=== PATIENT | female | born 1965 | race Caucasian/White ===

== ENCOUNTER → 2017-10-13 10:28 | Outpatient (CLI) | payer OTHER, SELFPAY | PROVIDERS: Family Provider Family Medicine; PCP Family Medicine; Visit Provider Physician Assistant Surgical | DX: J02.9 Acute pharyngitis, unspecified (principal) ==

== ENCOUNTER → 2017-12-09 16:07 | Outpatient (CLI) | payer OTHER, SELFPAY ==
--- NOTE | 2017-12-09 16:10 | CT_ITS ---
STUDY: CT ABDOMEN AND PELVIS WITH AND WITHOUT CONTRAST REASON FOR EXAM: Female, 52 years old. Microscopic hematuria RADIATION DOSAGE (If Supplied By Facility): CTDIvol = ( 20.56 ) mGy, DLP = ( 1966.39 ) mGycm TECHNIQUE: Transaxial images were obtained from the dome of the diaphragm to the symphysis pubis without oral contrast. 100 ml of Isovue 300 contrast was administered. Sagittal and coronal images were reconstructed. Individualized dose optimization techniques were used for this CT. COMPARISON: None. FINDINGS: The visualized lung bases are unremarkable. The visualized portions of the heart are within normal limits. There is decreased attenuation of the liver consistent with steatosis. A 1.6 cm gallstone is present. Normal spleen. Normal pancreas. Normal bilateral adrenal glands. Normal right kidney. 2 mm nonobstructing left renal stone. 18 mm simple cyst in the left kidney laterally. 11 mm simple cyst in the left kidney medially. Normal visualized stomach. Normal small intestine. Normal colon. The appendix is visualized and appears normal. Normal abdominal aorta. Normal inferior vena cava. Normal retroperitoneum. Normal urinary bladder. Umbilical fat hernia. Normal osseous structures. CT/CT Abd/Pelvis W/WO Contrast IMPRESSION: 2 mm nonobstructing left renal stone. Multiple small left renal cysts. Solid renal mass. No evidence of acute obstructive uropathy. Cholelithiasis. Electronically Signed: Bradford Deutsch MD at 6:11 EDT Tel , Service support ,
== END ==
PROVIDERS: Family Provider Family Medicine; PCP Family Medicine; Visit Provider Nurse Practitioner Adult Health
DX: R31.29 Other microscopic hematuria (principal)
CPT/HCPCS: 74178; Q9967

== ENCOUNTER → 2017-12-28 14:06 | Outpatient (CLI) | payer OTHER, SELFPAY | PROVIDERS: Referring Provider Physician Assistant; Visit Provider Physician Assistant | DX: J02.9 Acute pharyngitis, unspecified (principal) | CPT/HCPCS: 87081 ==

== ENCOUNTER 2018-01-13 10:02 | Day surgery (SDC) | payer OTHER, SELFPAY ==
[2018-01-13 10:31] VITALS: BP 134/83; PULSE 78; RESP 16; TEMP 36.6; O2SAT 97; BMI 37.2
[2018-01-13] MEDS: Cefazolin 2 GM in 0.9% Normal Saline 100 ML IV (11:22)
--- NOTE | 2018-01-13 11:42 | PCM.OPRPT ---
Report of Operation Date of Procedure: 01/13/18 Pre-Operative Diagnosis: Microscopic hematuria Post-Operative Diagnosis: Same Surgery/Procedure Performed:: Cystoscopy Description of Surgical Findings:: 52-year-old female taken back to the operating room she requested anesthesia because she has a very sensitive urethra a lot of pain with catheterizations in the past. She underwent a MAC local anesthesia she was placed in dorsolithotomy position she has had a hysterectomy, she has a mild rectocele mild cystocele, urethra is normal no scar tissues along the urethra the vaginal area and urethra prepped and draped in usual sterile fashion went into the bladder with a 19 Trin[place] rigid cystourethroscope did a cystoscopy with 30 and 70 degree lens she had a normal urethra normal trigone bladder was completely normal no tumor stones or diverticuli or abnormalities. Patient's anesthesia reversed and the patient was bladder was drained and she taken back to PACU good condition I called the and let her know that the cystoscopy was normal and left a message. Type of Anesthesia:: Local MAC Drains: none - Admit VTE Documentation VTE Present on Admission: No
--- NOTE | 2018-01-13 11:45 | DCINST_ITS ---
Discharge Diet: Light diet - advance as tolerated Discharge Activity: Return to Normal Activity Allergies/Adverse Reactions: Allergies latex Allergy (Verified 01/07/18 11:04) Itching Iodinated Contrast- Oral and IV Dye Adverse Reaction (Verified 01/07/18 11:04) NAUSEA,DIAPHORESIS Sulfa (Sulfonamide Antibiotics) Adverse Reaction (Verified 01/07/18 11:04) UNABLE TO TAKE WITH CROHNS DISEASE Medications to take at Discharge Multivitamins,Therapeutic [Multivitamin] 1 tab PO DAILY 12/26/15 Iron Carbonyl [Feosol] 65 mg PO DAILYCM 01/10/16 Benzonatate 200 mg PO QHS 01/07/18 Calcium Carbonate [Calcium] 500 mg PO DAILY 01/07/18 Potassium 550 mg PO DAILY 01/07/18 Sulferzyme 1.8 g PO DAILY 01/07/18 Triamcinolone 0.5% Cream [Triamcinolone Acetonide] 1 applic TP PRN PRN 01/07/18 Primary Care Physician: Bhavesh Guerrero [Primary Care Provider] - Test Results: Test results from this visit will be discussed in further detail at your follow- up appointment, if applicable. Please Follow Up With: Osvaldo Harrington MD When: please call to make an appointment.
[2018-01-13 11:52] VITALS: BP 134/83; BP 138/88; PULSE 81; RESP 16; TEMP 36.4; O2SAT 94
[2018-01-13 11:55] VITALS: BP 134/83; BP 134/86; PULSE 79; RESP 16; O2SAT 94
[2018-01-13 12:03] VITALS: BP 134/83; BP 139/86; PULSE 80; RESP 16; TEMP 36.3; O2SAT 96
[2018-01-13 13:10] VITALS: BP 134/83
== END 2018-01-13 13:15 | disposition home or self-care (01) ==
LOC: SDC 10:03 → AC 10:06
PROVIDERS: Family Provider Family Medicine; PCP Family Medicine; Referring Provider Urology; Visit Provider Urology
PROC: 0TJB8ZZ Inspection of Bladder, Via Natural or Artificial Opening Endoscopic (ICD-10-PCS; CPT 52000; principal; 2018-01-13 11:15)
DX: R31.29 Other microscopic hematuria (principal); N81.6 Rectocele; N81.10 Cystocele, unspecified; R35.1 Nocturia; E11.9 Type 2 diabetes mellitus without complications; I10 Essential (primary) hypertension; K51.90 Ulcerative colitis, unspecified, without complications; J45.20 Mild intermittent asthma, uncomplicated; L30.9 Dermatitis, unspecified; E66.9 Obesity, unspecified; Z68.37 Body mass index [BMI] 37.0-37.9, adult; Z87.891 Personal history of nicotine dependence; Z90.710 Acquired absence of both cervix and uterus
CPT/HCPCS: 00910; 52000; J7120

== ENCOUNTER → 2018-07-12 16:30 | Outpatient (CLI) | payer OTHER, SELFPAY ==
--- NOTE | 2018-07-12 | FLU_PTH ---
PATIENT: JEN HOLDER LOC: [facility] U#:[id number] AGE/SX: 59/F ROOM: RE07/12/[address]: Dr. Osvaldo Harrington MD : 1965 BED: DIS: SPEC #: [id number] RECD: 07/12/18 16:30 STATUS: MARY JO MURIEL #: [id number] YANA: 07/12/18 00:[address]: Osvaldo Harrington DEPT: CYTOLOGY RECD BY: Paul Colon ENTERED: 07/13/18 10:59 SP TYPE: Fluid OTHR DR: Dr. Bhavesh Guerrero, DO Tissues: Urine Procedures: Special Stain Group II Cytospin Fluid HEADER OPERATION: Not noted PRE-OP DIAGNOSIS: Hematuria TISSUE SUBMITTED: Urine for cytology DIAGNOSIS CYTOLOGY Urine for cytology (cytospin): Negative for malignant cells. See microscopic description and comment. KATERINA:dell 07/14/18 COMMENT Clinical correlation and appropriate follow up are necessary. CYTOLOGY STUDY Slides are reviewed. The specimen predominantly consists of squamous cells and organisms consistent with bacteria. CYTOLOGY GROSS Received is 50 ml of cloudy yellow fluid labeled with the patient's name and and designated per the requisition as urine. Submitted for cytology preparation. / CC:cc 07/13/18 TC:5 CPT: 25151
[2018-07-12 17:11] LABS: Cytology, Body Fluid / CSF SEE PATHOLOGY REPORT
== END ==
PROVIDERS: Family Provider Family Medicine; PCP Family Medicine; Referring Provider Urology; Visit Provider Urology
DX: R31.9 Hematuria, unspecified (principal)
CPT/HCPCS: 88108; 88305; 88313

== ENCOUNTER → 2018-11-10 06:54 | Outpatient (CLI) | payer OTHER, SELFPAY ==
[2018-11-10 07:33] LABS: Absolute Lymphocyte Count 2.96 X10^3/uL (0.83-4.51); Absolute Neutrophil Count 5.8 X10^3/uL (2.0-7.7); Basophil# 0.05 X10^3/uL; Basophil% 0.5 % (0-1); Eosinophil# 0.29 X10^3/uL; Hematocrit 41.2 % (37-47); Hemoglobin 13.4 g/dL (12.0-15.0); Lymphocyte # 2.96 X10^3/ul (4.0); Lymphocyte % 30.2 % (19-41); Mean Corp Hgb Conc 32.5 g/dL (32-36); Mean Corpuscular Hgb 30.1 pg (27.0-32.0); Mean Corpuscular Volume 92.6 fL (81-99); Mean Platelet Vol. 11.4 fl (6.2-12.0); Monocyte# 0.68 X10^3/uL; Monocyte% 6.9 % (0-10); NRBC Flagged by Analyzer 0 % (0-5); Neutrophil # 5.79 X10^3/uL (2.7-7.7); Neutrophil % 59.1 % (47-70); Platelet Count 393 K/mm3 (150-450); RBC Distribution Width CV 12.7 % (11.6-14.6); RBC Distribution Width SD 43.4 fl (35.1-43.9); Red Blood Count 4.45 M/mm3 (4.2-5.4); White Blood Count 9.8 K/mm3 (4.4-11.0)
[2018-11-10 07:56] LABS: T4 Total, Thyroxin 12.2 ug/dL (4.8-13.9); Thyroid Stim Hormone (TSH) 1.88 uIU/mL (0.358-3.74)
[2018-11-10 09:21] LABS: T3 Total - Triiodothyronine 1.41 ng/mL (0.6-1.81); Vitamin D,25 Hydroxy 31.7 ng/mL (29.95-100.01)
[2018-11-11 11:54] LABS: Pathologist Review Reviewed
== END ==
PROVIDERS: Family Provider Family Medicine; PCP Family Medicine; Referring Provider Family Medicine; Visit Provider Family Medicine
DX: E89.40 Asymptomatic postprocedural ovarian failure (principal); D72.829 Elevated white blood cell count, unspecified; R63.5 Abnormal weight gain
CPT/HCPCS: 36415; 82306; 84436; 84443; 84480; 85025

== ENCOUNTER → 2018-12-17 07:56 | Outpatient (CLI) | payer OTHER, SELFPAY ==
--- NOTE | 2018-12-17 10:05 | RAD_ITS ---
STUDY: X-RAY CHEST REASON FOR EXAM: Female, 53 years old. Shortness of breath. TECHNIQUE: PA and lateral views of the chest. COMPARISON: None. FINDINGS: The lungs are clear and expanded. There is no demonstrated pleural abnormality. Normal size heart. Normal mediastinum and salo. Normal visualized pulmonary arteries. Normal visualized aortic arch and descending thoracic aorta. There are mild degenerative changes of the visualized thoracic spine. Normal visualized ribs, clavicles, and shoulders. There is no demonstrated abnormality of the visualized soft tissue structures of the upper abdomen. RAD/Chest PA and Lateral IMPRESSION: Normal x-ray examination of the chest. Electronically Signed: Cabrera Fowler, at 10:35 EDT , Service support ,
== END ==
PROVIDERS: Family Provider Family Medicine; PCP Family Medicine; Referring Provider Internal Medicine Pulmonary Disease; Visit Provider Internal Medicine Pulmonary Disease
DX: R06.00 Dyspnea, unspecified (principal)
CPT/HCPCS: 71046

== ENCOUNTER → 2020-04-24 09:24 | Outpatient (CLI) | payer OTHER, SELFPAY ==
[2020-03-03 13:57] VITALS: BMI 36.1
--- NOTE | 2020-04-24 09:27 | BI_ITS ---
MAMMOGRAPHY - BILATERAL SCREENING REASON FOR EXAM: Female, 55 years old. Routine annual screening examination. PERTINENT HISTORY: Aunt with breast cancer. TECHNIQUE: Digital bilateral breast cherelle (3D mammographic acquisition) in the CC and MLO projections. 2-D mediolateral oblique (MLO) and craniocaudad (CC) views of both breasts were obtained. CAD: Full Field Digital Mammography with Computer Added Detection was performed. COMPARISON: Comparison is made with prior study 03/07/2016 and 02/24/2014. FINDINGS: Breast Composition: The breasts are almost entirely fatty. There are no dominant masses or suspicious calcifications. Stable benign-appearing bilateral axillary lymph nodes. No other significant abnormalities are identified. There has been no significant change since the prior study. BI/SCRN MAMM (CAD)W/CHERELLE BILAT IMPRESSION: Stable bilateral screening mammogram. Yearly follow-up mammogram recommended. (A) ASSESSMENT CATEGORY: BIRADS Category 2: Benign. A letter regarding these results will be sent to the patient by the facility within 30 days. Approximately 10% of breast cancers are not detected by mammography. A normal mammogram should not delay biopsy of a clinically suspicious abnormality. [id number] Electronically Signed: Cabrera Fowler MD at 10:40 EST , Service support ,
== END ==
PROVIDERS: PCP Family Medicine; Referring Provider Obstetrics & Gynecology; Visit Provider Obstetrics & Gynecology
DX: Z12.31 Encounter for screening mammogram for malignant neoplasm of breast (principal)
CPT/HCPCS: 77063; 77067

== ENCOUNTER 2021-01-11 12:53 | Outpatient (CLI) | payer OTHER, SELFPAY ==
[2021-01-11 13:12] VITALS: BP 128/87; PULSE 103; RESP 16; TEMP 36.8; O2SAT 99; BMI 33.4
[2021-01-11] MEDS: 0.9% Saline Lock 10 ML Syringe IV (13:19)
[2021-01-11 14:16] VITALS: BP 128/84; PULSE 89; RESP 16; TEMP 37.2; O2SAT 100
[2021-01-11 15:05] VITALS: BP 134/84; PULSE 81; RESP 16; TEMP 37; O2SAT 100
== END 2021-01-11 15:15 | disposition home or self-care (01) ==
LOC: MS3OUT 12:53 → MS3 12:54
PROVIDERS: PCP Family Medicine; Referring Provider Nurse Practitioner Adult Health; Visit Provider Nurse Practitioner Adult Health
DX: U07.1 COVID-19 (principal)
CPT/HCPCS: J7050; M0245; Q0245; A4216

== ENCOUNTER → 2021-08-06 | Outpatient (CLI) | payer OTHER, SELFPAY ==
--- NOTE | 2021-08-06 07:06 | US_ITS ---
STUDY: ABDOMINAL ULTRASOUND - ELASTOGRAPHY REASON FOR VISIT: Female, 56 years old. Fatty liver. TECHNIQUE: Liver stiffness measurements were obtained on a Root4 RS 85 ultrasound machine using a CA 1-7 probe following the SRU guidelines. 3 measurements were obtained using a 2-D-SWE method. The IQR/M was 20% suggesting a quality data set. TECHNICAL QUALITY: Adequate. COMPARISON: Comparison is made with prior study done earlier today. FINDINGS: Liver: Fatty infiltration of the liver. Median liver stiffness measured 5.8 kPa. US/Elastography Parenchyma/Organ IMPRESSION: Liver stiffness measures 5.8 kPa compatible with F0-F1 (Normal to mild liver fibrosis) Metavir score. Electronically Signed: Cabrera Fowler MD at 9:01 EDT ,
--- NOTE | 2021-08-06 07:06 | US_ITS ---
STUDY: ABDOMINAL ULTRASOUND - RIGHT UPPER QUADRANT REASON FOR VISIT: Female, 56 years old fatty liver TECHNIQUE: Ultrasound evaluation of the right upper quadrant was performed with real-time and static bazzi-scale imaging. TECHNICAL QUALITY: Adequate. COMPARISON: None. FINDINGS: Liver: The liver measures 16.2 cm. There is increased echogenicity consistent with mild degree of fatty infiltration. The bile ducts are within normal limits. There is hepatic color flow. The direction of portal flow is hepatopetal. There is no demonstrated mass lesion. Gallbladder: Normal distended gallbladder. The gallbladder wall measures 2.4 mm. There is a negative sonographic Miranda''s sign. There is no pericholecystic fluid. There is a solitary echogenic gallstone within the gallbladder. This is adherent to the fundal portion of the gallbladder. Incidental note is made of a 5 mm x 4 mm x 2 mm gallbladder polyp. Common Bile Duct (C.B.D.): The common bile duct measures 5.4 mm. Pancreas: Normal size of the head, body and tail of the pancreas. There is normal echogenicity of the pancreas. There is no demonstrated pancreatic mass or cyst. Right Kidney: Normal size of the right kidney. The right kidney measures 10.8 cm x 5 cm x 5.2 cm. Normal renal cortex. The right cortex measures 1.8 cm. There is no demonstrated renal mass or cyst. There is no right hydronephrosis. US/Abdomen Limited IMPRESSION: Mild degree of fatty infiltration of the liver. Solitary gallstone. Small gallbladder polyp. Electronically Signed: Cabrera Fowler MD at 8:59 EDT ,
== END | disposition home or self-care (01) ==
LOC: US 07:04
PROVIDERS: PCP Family Medicine; Visit Provider Internal Medicine Gastroenterology
DX: K76.0 Fatty (change of) liver, not elsewhere classified (principal)
CPT/HCPCS: 76705; 76981

== ENCOUNTER → 2021-12-03 | Outpatient (CLI) | payer OTHER, SELFPAY ==
[2021-12-03 09:22] LABS: Absolute Lymphocyte Count 2.53 X10^3/uL (0.83-4.51); Absolute Neutrophil Count 4.6 X10^3/uL (2.0-7.7); Basophil# 0.06 X10^3/uL; Basophil% 0.8 % (0-1); Eosinophil# 0.17 X10^3/uL; Eosinophils% 2.2 % (0-5); Hematocrit 40.1 % (37-47); Lymphocyte # 2.53 X10^3/ul; Lymphocyte % 32.1 % (19-41); Mean Corp Hgb Conc 32.4 g/dL (32-36); Mean Corpuscular Hgb 30.7 pg (27.0-32.0); Mean Corpuscular Volume 94.8 fL (81-99); Mean Platelet Vol. 11.3 fl (6.2-12.0); Monocyte# 0.52 X10^3/uL; Monocyte% 6.6 % (0-10); NRBC Flagged by Analyzer 0 % (0-5); Neutrophil # 4.59 X10^3/uL (2.7-7.7); Platelet Count 344 K/mm3 (150-450); RBC Distribution Width CV 12.3 % (11.6-14.6); RBC Distribution Width SD 42.6 fl (35.1-43.9); Red Blood Count 4.23 M/mm3 (4.2-5.4); White Blood Count 7.9 K/mm3 (4.4-11.0)
[2021-12-03 09:28] LABS: Color, Urine Yellow (Yellow); Glucose, Dipstick Normal (Normal); Ketone-Dipstick Negative (Negative); Leukocyte Esterase-Dipstick 100 /ul (Negative); Nitrite-Dipstick Negative (Negative); Occult Blood-Urine 10 /ul (Negative); Protein-Dipstick Negative (Negative); Specific Gravity, Urine 1.015 (1.002-1.030); Urine Bilirubin Dipstick Negative (Negative); Urine Clarity Sl. Cloudy (Clear); Urine Urobilinogen Normal (Normal); Urine pH 6.5 (5.0 - 8.0)
[2021-12-03 09:54] LABS: AST(SGOT) 16 U/L (15-37); Alanine Aminotransfer ALT/SGPT 36 U/L (13-56); Albumin, Serum 3.9 g/dL (3.2-5.0); Alkaline Phosphatase 94 U/L (45-117); Anion Gap 7 (5-15); BUN 17 mg/dL (7-18); BUN/Creat Ratio 22.4 RATIO (10-20); Bilirubin, Direct 0.14 mg/dL (0.00-0.30); Calcium,Total 9.6 mg/dL (8.5-10.1); Chloride 107 mmol/L (98-107); Cholesterol 189 mg/dL (200); Creatinine, Serum 0.76 mg/dL (0.55-1.02); EST Glomerular Filtration Rate 84 mL/min (>60); Est Glom Filt Rate - Afr Amer 101 mL/min (>60); Globulin 3.8 g/dL (2.2-4.2); Glucose 99 mg/dL (74-106); High Density Lipoprotein 66 mg/dL; LDH 93 U/L (84-246); Phosphorus 3.5 mg/dL (2.5-4.9); Potassium 4.1 mmol/L (3.5-5.1); Protein, Total 7.7 g/dL (6.4-8.2); Sodium Level 139 mmol/L (136-145); Triglycerides 107 mg/dL; Very Low Density Lipoprotein 21 mg/dL (5-40)
== END | disposition home or self-care (01) ==
LOC: LAB 08:43
PROVIDERS: PCP Family Medicine; Referring Provider Family Medicine; Visit Provider Family Medicine
DX: Z13.220 Encounter for screening for lipoid disorders (principal)
CPT/HCPCS: 36415; 80061

== ENCOUNTER 2022-03-31 07:03 | Day surgery (SDC) | payer OTHER, SELFPAY ==
--- NOTE | 2022-03-31 | COLBX_PTH ---
PATIENT: JEN HOLDER LOC: [facility] U#:[id number] AGE/SX: 56/F ROOM: RE03/31/[address]: Dr. Christopher Ewing DO : 1965 BED: DIS: 03/31/2022 SPEC #: [id number] RECD: 03/31/22 13:50 STATUS: MARY JO MURIEL #: [id number] YANA: 03/31/22 00:[address]: Christopher Ewing DEPT: SURGICAL PATHOLOGY RECD BY: Timmy Bhatia ENTERED: 03/31/22 13:51 SP TYPE: COLON BX OTHR DR: Dr. Bhavesh Guerrero DO Tissues: A - Ileum, NOS B - COLON BIOPSY C - Rectum, NOS Procedures: Surgery Specimen Level IV HEADER OPERATION: Colonoscopy (MAC) with biopsies PRE-OP DIAGNOSIS: Ulcerative colitis, fatty liver, obesity TISSUE SUBMITTED: A ? Terminal ileum biopsy, B ? Random colon biopsies, C ? Rectum biopsy MICROSCOPIC DIAGNOSIS A. Terminal ileum, biopsy: A fragment of small intestinal mucosa, no pathologic diagnosis. B. Colon, random biopsy: A fragment of hyperplastic polyp. Additional fragments of colonic mucosa, no pathologic diagnosis. C. Rectum, biopsy: Focal minimal acute colitis. See comment. SJ:dell 04/01/2022 COMMENT C. A single gland with crypt abscess is noted. Minimal granular distortion is also seen. Significant cryptitis or granulomas are not seen. Correlation with clinical, endoscopic findings and appropriate follow up are necessary. MICROSCOPIC DESCRIPTION Slides are reviewed. GROSS DESCRIPTION A - Received in fixative is one container labeled with the patient's name and designated terminal ileum biopsy. The specimen consists of one irregular fragment of light pang soft tissue that measures 0.2 x 0.2 x 0.1 cm. The specimen is totally submitted in one cassette. B - Received in fixative is one container labeled with the patient's name and designated random colon biopsy. The specimen consists of multiple irregular fragments of light pang soft tissue that in aggregate measure 1.5 x 0.5 x 0.1 cm. The specimen is totally submitted in one cassette. C - Received in fixative is one container labeled with the patient's name and designated rectum biopsy. The specimen consists of two irregular fragments of light pang soft tissue that in aggregate measure 0.4 x 0.3 x 0.1 cm. The specimen is totally submitted in one cassette. / SJ:rg 03/31/2022 TC:2 CPT: 45967 x3
[2022-03-31] MEDS: Lactated Ringers 1,000 ML 15 ML IV (07:15)
[2022-03-31 07:27] VITALS: BP 138/94; PULSE 91; RESP 17; TEMP 36.6; O2SAT 95; BMI 36.7
--- NOTE | 2022-03-31 07:33 | PCM.HP.BLA ---
History and Physical Date of Admission: 03/31/22 KRISTINE HOLDER, is a 56 F who presents to the office today for a surveillance colonoscopy. Kristine established with this clinic 12.21.20 for UC diagnosed in the early . Colonoscopy late 2020 and was started on sulfasalazine with subsequent remission. Does not consume alcohol. PMH CDI FH mother passed from alcoholic liver disease at age 62. US RUQ and elastography 08.06.21 liver measurement 16.2cm with fatty infiltration. Liver stiffness measures 5.8kPa compatible with F0/1 Metavir score. Weight ?5?6? 10.06.21 213lbs 01.22.22 226lbs Plan last visit 08.16.21: UC - continue sulfasalazine, folic acid and B12. Fatty liver ? recommend 30g carbs 3 days a week, start 3 caffeinated drinks a day and vitamin E. Feels she is doing well overall. She is not having any difficulty with UC symptoms. She initially had some neuropathy when she first established, but with use of folic acid and B12 she is 90% better and pleased with these results. Last colonoscopy was approximately 2 years prior with [facility]; does not recall any significant findings. Exam Const General: cooperative, healthy appearing, comfortable, no acute distress, well developed and well groomed HENIL Head: normal to inspection and normocephalic Ears: TM's normal bilaterally Nose: external nose normal, nasal mucous membranes and turbinates normal, septum normal and nasal discharge Face and sinus: face symmetric and sinus tenderness maxillary Mouth: oral mucosae normal, lip normal and tongue normal Teeth and gingiva: dentition normal Throat: posterior oropharynx normal Eyes General: appearance normal, both eyes and all related structures Alignment and Position: alignment normal and position normal Periorbital: periorbital findings normal Pupils: PERRL and accommodation normal EOM: EOM intact bilaterally Neck Neck: full ROM, no lymphadenopathy and supple Resp Effort & Inspection: normal respiratory effort and symmetric chest movement Auscultation: Bilateral: Clear to Auscultation Cardio Rate: regular rate Rhythm: regular rhythm Skin General: no rashes or lesions noted Neuro General: patient alert, patient awake, gait normal, tone normal and moves all extremities Quality Reporting Tobacco Screening ([facility] 138) Smoking Status: Former smoker Assessment and Plan Assessment and Plan (1) Ulcerative colitis: ?Status:?Chronic ?Plan: She is having 1-2 formed bowel movements per day.? She is not have any side effects from sulfasalazine.? We had added the folic acid and she is not having any more neuropathy symptoms at this time.? We will perform a surveillance colonoscopy today. (2) Fatty liver: ?Status:?Chronic ?Plan: She has a F1 Medavir score for fatty liver disease.? This is very good.? We are continue to encourage her to lose weight.? She is being maintained on ursodiol and vitamin E also. (3) Obesity: ?Status:?Chronic ?Plan: She continues to struggle with her weight.? She does lose some weight but she is stalled.? Right now her BMI is 36.? I will give her a short course of phentermine therapy at the 30 mg dose.? If she does okay and does not have any signs side effects then we can increase it up to 37.5.? The risk and benefits of phentermine therapy were explained to the patient in detail. ? ? ? Medications: New phentermine ?? must administer 2 hours after breakfast 30 mg? PO DAILY 30 caps 0RF ? ? I have examined the patient and the H&P has been reviewed. There are no clinical changes since date of exam.
[2022-03-31 09:06] VITALS: BP 138/94; BP 139/110; PULSE 82; RESP 16; TEMP 36.9; O2SAT 95
--- NOTE | 2022-03-31 09:07 | OP.CCLET_ITS ---
03/31/2022 Bhavesh Guerrero Re : Colonoscopy procedure for Kristine Leonard Dear Yolanda This procedure was performed on Thursday, March 31, 2022. My impressions and recommendations are as follows: Impressions : - Congested mucosa in the recto-sigmoid colon and in the sigmoid colon. Biopsied. - The examined portion of the ileum was normal. Biopsied. Recommendations : - Discharge patient to home. - Resume previous diet. - Continue present medications. - Await pathology results. - Repeat colonoscopy in 2 years for surveillance. My findings are described in the full procedure note, which is enclosed. If I can be of further assistance, please feel free to contact me at . Sincerely, Christopher Ewing, 03/31/2022 9:06:59 AM This report has been signed electronically.
--- NOTE | 2022-03-31 09:07 | OP.COLON_ITS ---
Patient Name: Kristine Leonard Procedure Date: 03/31/2022 8:37 AM Date of : 1965 Age: 56 Procedure: Colonoscopy Indications: High risk colon cancer surveillance: Ulcerative left sided colitis Providers: Christopher Ewing DO Medicines: Monitored Anesthesia Care Patient Profile: This is a 56 year old female. Refer to note in patient chart for documentation of history and physical. Last Colonoscopy: within the past 3 years. Complications: No immediate complications. Procedure: Pre-Anesthesia Assessment: - Prior to the procedure, a History and Physical was performed, and patient medications and allergies were reviewed. The risks and benefits of the procedure and the sedation options and risks were discussed with the patient. All questions were answered and informed consent was obtained. Patient identification and proposed procedure were verified by the physician in the pre-procedure area. Mental Status Examination: alert and oriented. Airway Examination: normal oropharyngeal airway and neck mobility. Respiratory Examination: clear to auscultation. CV Examination: normal. Prophylactic Antibiotics: The patient does not require prophylactic antibiotics. Prior Anticoagulants: The patient has taken no previous anticoagulant or antiplatelet agents. After reviewing the risks and benefits, the patient was deemed in satisfactory condition to undergo the procedure. The anesthesia plan was to use monitored anesthesia care (MAC). Immediately prior to administration of medications, the patient was re-assessed for adequacy to receive sedatives. The heart rate, respiratory rate, oxygen saturations, blood pressure, adequacy of pulmonary ventilation, and response to care were monitored throughout the procedure. The physical status of the patient was re-assessed after the procedure. After I obtained informed consent, the scope was passed under direct vision. Throughout the procedure, the patient's blood pressure, pulse, and oxygen saturations were monitored continuously. The pediatric colonoscope was introduced through the anus and advanced to the terminal ileum. The colonoscopy was performed without difficulty. The patient tolerated the procedure well. The quality of the bowel preparation was good. Scope In: 8:48:29 AM Scope Withdrawal Time 0 hours 8 minutes 2 seconds Scope Out: 9:02:13 AM Total Procedure Duration Time 0 hours 13 minutes 44 seconds Findings: The perianal and digital rectal examinations were normal. An area of mildly congested mucosa was found in the recto-sigmoid colon and in the sigmoid colon. Biopsies were taken with a cold forceps for histology. Verification of patient identification for the specimen was done. Estimated blood loss was minimal. The terminal ileum appeared normal. Biopsies were taken with a cold forceps for histology. Verification of patient identification for the specimen was done. Estimated blood loss was minimal. Impression: - Congested mucosa in the recto-sigmoid colon and in the sigmoid colon. Biopsied. - The examined portion of the ileum was normal. Biopsied. Recommendation: - Discharge patient to home. - Resume previous diet. - Continue present medications. - Await pathology results. - Repeat colonoscopy in 2 years for surveillance. Procedure Code(s): --- Professional --- 89879, Colonoscopy, flexible; with biopsy, single or multiple CPT copyright 2017 [employer]. All rights reserved. The codes documented in this report are preliminary and upon take out waiter/waitress review may be revised to meet current compliance requirements. Christopher Ewing DO 03/31/2022 9:06:59 AM This report has been signed electronically. Number of Addenda: 0 Note Initiated On: 03/31/2022 8:37 AM
[2022-03-31 09:10] VITALS: BP 138/94; BP 139/81; PULSE 84; RESP 16; O2SAT 96
[2022-03-31 09:15] VITALS: BP 129/81; BP 138/94; PULSE 80; RESP 16; O2SAT 95
[2022-03-31 09:20] VITALS: BP 125/74; BP 138/94; PULSE 77; RESP 16; TEMP 36.6; O2SAT 96
[2022-03-31 09:41] VITALS: BP 138/94
== END 2022-03-31 09:46 | disposition home or self-care (01) ==
LOC: EN 07:04 → AC 07:05
PROVIDERS: PCP Family Medicine; Referring Provider Family Medicine; Visit Provider Internal Medicine Gastroenterology
PROC: 0DJD8ZZ Inspection of Lower Intestinal Tract, Via Natural or Artificial Opening Endoscopic (ICD-10-PCS; CPT 45378; principal; 2022-03-31 08:25)
DX: Z12.11 Encounter for screening for malignant neoplasm of colon (principal); K51.50 Left sided colitis without complications; K63.5 Polyp of colon; K76.0 Fatty (change of) liver, not elsewhere classified; E66.9 Obesity, unspecified; Z68.36 Body mass index [BMI] 36.0-36.9, adult; Z90.710 Acquired absence of both cervix and uterus; Z86.16 Personal history of COVID-19; Z87.891 Personal history of nicotine dependence
CPT/HCPCS: 45380; 88305; J7120; J2405

== ENCOUNTER → 2022-05-16 | Outpatient (CLI) | payer OTHER, SELFPAY ==
--- NOTE | 2022-05-16 14:50 | RAD_ITS ---
STUDY: X-RAY - RIGHT KNEE REASON FOR EXAM: Female, 57 years old. injury TECHNIQUE: 3 view(s) of the knee. COMPARISON: None. FINDINGS: Normal visualized distal femur. Normal visualized proximal tibia and fibula. Normal proximal tibiofibular articulation. Mildly narrowed medial femorotibial compartment. Normal lateral femorotibial compartment. Normal patellofemoral articulation. The soft tissue structures are unremarkable. RAD/Knee 3 Views IMPRESSION: Mild degenerative change. No acute fracture or other significant bony pathology Electronically Signed: Andi Torres MD at 19:28 EST Reading Location ID and State: [facility] / [place] , Service support ,
== END | disposition home or self-care (01) ==
LOC: RAD 12:53
PROVIDERS: PCP Family Medicine; Visit Provider Physician Assistant
DX: S89.91XA Unspecified injury of right lower leg, initial encounter (principal); X58.XXXA Exposure to other specified factors, initial encounter; M17.11 Unilateral primary osteoarthritis, right knee
CPT/HCPCS: 73562

== ENCOUNTER → 2022-05-29 | Outpatient (CLI) | payer OTHER, SELFPAY ==
--- NOTE | 2022-05-29 06:36 | MRI_ITS ---
STUDY: MRI RIGHT KNEE REASON FOR EXAM: Female, 57 years old. Twisting injury 2 weeks ago. Medial pain. TECHNIQUE: Standardized fat and water weighted pulse sequences were obtained in all 3 orthogonal planes. COMPARISON: Knee x-rays dated May 16, 2022. FINDINGS: Normal medial meniscus. Mild thinning of the articular cartilage of the medial femorotibial compartment (coronal series 6 images 13-19). Normal medial femoral condyle and tibial plateau. Mild MCL sprain (coronal series 6 image 17). Normal distal semimembranosus, gracilis and semitendinosus tendons. Normal lateral meniscus. Mild thinning of the articular cartilage of the lateral femorotibial compartment (coronal series 6 images 13-19). Normal lateral femoral condyle and tibial plateau. Normal proximal tibiofibular articulation. Normal lateral collateral (fibular) ligament. Normal popliteus tendon. Normal biceps femoris tendon. Normal anterior cruciate ligament (ACL). Normal posterior cruciate ligament (PCL). Lateral tilt and subluxation of the patella with mild thinning of the articular cartilage most marked in the medial patellar facet with reactive subchondral bone marrow edema (axial series 2 images 7-13). Normal medial and lateral patellar retinaculum. Normal quadriceps tendon. Normal patellar tendon. Normal Hoffa''s fat pad. Joint effusion with moderate to large dissecting septated popliteal cyst (axial series 2 images 8-21). Prepatellar subcutaneous soft tissue edema (sagittal series 4 image 13). The otherwise visualized osseous structures are unremarkable. MRI/Lower Ext Joint Only (Routine) IMPRESSION: Mild thinning of the articular cartilage of the medial and lateral femorotibial compartments. Mild MCL sprain. Lateral tilt and subluxation of the patella with mild thinning of the articular cartilage of the patellofemoral compartment as described. Prepatellar subcutaneous soft tissue edema. Joint effusion with moderate to large dissecting septated popliteal cyst. No meniscal tear. Electronically Signed: Tommy Payton, at 10:10 EST ,
== END | disposition home or self-care (01) ==
LOC: MRI 06:36
PROVIDERS: PCP Family Medicine; Visit Provider Physician Assistant
DX: S83.91XA Sprain of unspecified site of right knee, initial encounter (principal); M23.91 Unspecified internal derangement of right knee; X50.1XXA Overexertion from prolonged static or awkward postures, initial encounter
CPT/HCPCS: 73721

== ENCOUNTER 2023-01-23 06:01 | Day surgery (SDC) | payer OTHER, SELFPAY ==
[2023-01-23] VITALS (7 sets, daily range): BP systolic 120–157; BP diastolic 90–107; PULSE 68–85; RESP 16–18; TEMP 36.3–36.6; O2SAT 96–100; BMI 38.7
[2023-01-23] MEDS: Lactated Ringers 1,000 ML 15 ML IV (06:29)
--- NOTE | 2023-01-23 07:05 | HP.PCM_ITS ---
History and Physical Date of Admission: 01/23/23 Date of Service: 12/29/22 MR#: [id number] Acct: [id number] Name: JEN HOLDER Rep #: [id number] : 1965 Provider: Dr. Marisa Palm MD Age/Sex: 57/F Location: [facility] Status: Signed Intake Vital Signs 07/30/2309:52 12/30/2307:31 Height 5 ft 6 in 5 ft 6 in Weight: 241 lb BMI 38.9 BP 156/104 H Blood Pressure Location Rt brachial Position Sitting Respiration 17 Pulse 86 Pulse Source Monitor Pulse Oximetry (%) 96 Oxygen Delivery Method room air Intake Visit Reasons: Lipoma middle of back Chief Complaint: lipoma of back Is patient in pain?: No Allergies acetaminophen [From Percocet] Allergy (Verified 12/29/22 08:32) Itchinglatex Allergy (Verified 12/29/22 08:32) Itchingoxycodone [From Percocet] Allergy (Verified 12/29/22 08:32) ItchingIodinated Contrast Media [Iodinated Contrast- Oral and IV Dye] Adverse Reaction (Verified 12/29/22 08:32) NAUSEA,DIAPHORESISSulfa (Sulfonamide Antibiotics) Adverse Reaction (Verified 12/29/22 08:32) UNABLE TO TAKE WITH CROHNS DISEASE Medications multivitamin with folic acid 400 mcg tablet 1 tab PO DAILY 12/26/15 [History Confirmed 12/29/22] iron, carbonyl 45 mg tablet 65 mg PO DAILYCM 01/10/16 [History Confirmed 12/29/22] calcium carbonate 500 mg calcium (1,250 mg) tablet 500 mg PO DAILY 01/07/18 [History Confirmed 12/29/22] potassium 99 mg tablet 550 mg PO DAILY 01/07/18 [History Confirmed 12/29/22] Lactobac no.2-Bifidobac no.1-S. thermo 112.5 billion cell capsule (VSL#3) 1 cap PO DAILY #30 caps 12/21/20 [Rx Confirmed 12/29/22] cyanocobalamin-liver extract tablet 1 tab PO DAILY 03/27/22 [History Confirmed 12/29/22] folic acid 1 mg tablet 1 mg PO DAILY 03/27/22 [History Confirmed 12/29/22] sulfasalazine 500 mg tablet 1 g PO QHS 03/27/22 [History Confirmed 12/29/22] sulfasalazine 500 mg tablet 500 mg PO DAILY 03/27/22 [History Confirmed 12/29/22] esomeprazole magnesium 20 mg capsule,delayed release 20 mg PO DAILY 07/30/22 [History Confirmed 12/29/22] [facility] Medical History (Updated 12/29/22 @ 08:30 by Jessica Qureshi) Acute pharyngitis, unspecified Anemia Anxiety Arthritis Back pain Blepharitis of right lower eyelid Conjunctivitis, right eye COVID-19 long hauler manifesting chronic cough Diabetes Diarrhea Fatty liver Fatty liver Former smoker Heartburn History of echocardiogram Hx of ulcerative colitis Injury of back Leg cramps Migraine headache Shortness of breath on exertion Strain of right knee Wears glasses Surgical History H/O: hysterectomy History of ankle surgery History of sinus surgery Hx of colonoscopy Hx of cystoscopy lipoma removal Family History (Updated 12/29/22 @ 08:31 by Jessica Qureshi) Mother Diabetes Thyroid disorderFather Colon cancer Heart disease Hypertension CVA (cerebral vascular accident)Other Colitis Ulcerative colitis Social History Smoking Status: Former smoker alcohol intake: never HPI HPI HPI: 70-year-old female present due to right mid back lipoma. Patient noticed this [place] Patient had another 1 previously removed on her right shoulder. Patient denies pain at this area or change in overlying skin. This area is larger and patient would like it excised. ROS General General: Yes weight change; No weakness HEENT HEENT: No difficulty swallowing, eye injury, eye surgery, swollen glands or hoarseness Endo Endocrine: No thyroid disease, diabetes mellitus, thyroid cancer, Hair loss, heat intolerance or cold intolerance Skin Skin: Yes rash; No changing moles Musc Musculoskeletal: No back problems, arthritis, rheumatoid arthritis, gout or joint pain Cardio Cardiovascular: No murmur, pacemaker, heart disease, atrial fibrillation, high blood pressure, heart attack, heart stent, palpitations, shortness of breat with exertion or chest pain Psych Psychiatric: No depression, anxiety or hearing voices Resp Respiratory: Yes shortness of breath, No sleep apnea, No cough, No COPD, Yes asthma, No emphysema and No wheezing Gastro Gastrointestinal: No abdominal pain, No nausea or vomiting, Yes diarrhea, No constipation, No blood in stool, No acid reflux, No hemorrhoids, Yes ulcers, Yes gallbladder problem and No black,tarry stools Dennys Hematologic: No blood thinners, No blood disorders, No bleeding, No anemia and No blood clots Neuro Neurologic: No system reviewed and no additional complaints, except as documented, No as per HPI, No abnormal gait, No abnormal hearing, No abnormal movements, No abnormal speech, No behavioral changes, No burning sensations, No confusion, No convulsions, No disequilibrium, No dizziness, No localized weakness, No frequent falls, No headache(s), No lack of coordination, No loss of vision, No memory loss, No numbness, No other visual disturbances, No radicular pain, No restless legs, No sensory deficit, No syncope, No tingling, No tremor(s), No weakness and No other Exam Const General: cooperative, healthy appearing, comfortable and no acute distress HENMT Head: normocephalic and atraumatic Neck Neck: supple Resp Effort & Inspection: normal respiratory effort Cardio Rate: regular rate GI Inspection: non-distended Skin Other: Right medial superior back lipoma about 8 x 8 cm, soft, mobile, no change in overlying skin, nontender. Neuro General: CN's II-XI intact bilaterally Extrem General: normal to inspection Psych Mental Status: mental status grossly normal Attitude: cooperative Assessment and Plan Assessment and Plan (1) Lipoma of back: Status: Acute Plan We will plan for excision of right mid back lipoma with MAC anesthesia in the OR. Described the procedure including but not limited to risk of bleeding, infection, seroma, and recurrent lipomas. Patient no further question this time. Marisa Palm M.D. Pager: [phone] [facility] [address] [place] [address], [facility], [address] [place] [address] Office: [phone] Coding Level of Care Code Off vis,new,level 3 Diagnoses Lipoma of back D17.1 12/29/22 0847 <Electronically signed by Marisa Palm MD> Date Marisa Palm MD
[2023-01-23] MEDS: Cefazolin 2 GM in 0.9% Normal Saline (100mL Bag) 100 ML IV (07:25)
--- NOTE | 2023-01-23 07:30 | LIP_PTH ---
PATIENT: JEN HOLDER LOC: [facility] [place] U#:[id number] AGE/SX: 57/F ROOM: RE01/23/[address]: Dr. Marisa Palm MD : 1965 BED: DIS: 01/23/2023 SPEC #: [id number] RECD: 01/23/23 11:05 STATUS: MARY JO MURIEL #: [id number] YANA: 01/23/23 07:[address]: Marisa Palm DEPT: SURGICAL PATHOLOGY RECD BY: Anabella Mckeon ENTERED: 01/23/23 11:22 SP TYPE: LIPOMA OTHR DR: Dr. Bhavesh Guerrero, DO Tissues: Soft tissues, NOS Procedures: Surgery Specimen Level III HEADER OPERATION: Excision, lipoma, mid back PRE-OP DIAGNOSIS: Lipoma of back TISSUE SUBMITTED: Lipoma, right mid-back MICROSCOPIC DIAGNOSIS Lipoma, right mid-back, Excision: Fibrolipoma. SJ: 01/26/2023 MICROSCOPIC DESCRIPTION Slides are reviewed. GROSS DESCRIPTION Received in fixative is one container labeled with the patient's name and designated lipoma right mid back. The specimen consists of multiple pieces of yellow adipose tissue measuring in aggregate 8.0 x 7.0 x 2.5 cm. Sections reveal yellow adipose cut surfaces without area of hemorrhage, necrosis or cystic degeneration. Hip Hop Dancer sections are submitted in four cassettes. /KATERINA:dell 01/23/2023 TC:1 CPT: 91707
[2023-01-23] MEDS: Bupivacaine Mpf 0.5% 30 ML VIAL (07:40)
--- NOTE | 2023-01-23 08:22 | PCM.OPRPT ---
Report of Operation Date of Procedure: 01/23/23 Pre-Operative Diagnosis: Right mid Upper back lipoma Post-Operative Diagnosis: Same Surgery/Procedure Performed:: Excision of right mid upper back lipoma Surgeon: Marisa Palm clutch assembler: Sammy Scruggs Type of Anesthesia: Local MAC Anesthesiologist: Venkata Tolliver Estimated Blood Loss (mL): < 10 cc Description of Procedure: Patient was brought into the operating room placed in left lateral decubitus position on the operating table. Timeout was completed verifying correct patient, procedure, site, positioning, special, appropriate procedure. Right mid upper back was prepped draped in sterile fashion with chlorhexidine. Incision was planned over the lipoma along the Lignospan lines. Local anesthesia of 0.5% Marcaine was used for the procedure. 15 blade scalpel was used for incision. Deepened with electrocautery. Lipoma was excised with electrocautery, did note to have multiple small little fingerlike projections. For lipoma was completely excised? 7 cm x 4.5 cm x 2.5 cm. Specimen was sent to pathology. Incision was irrigated. Hemostasis was achieved. Incision was closed with interrupted 3-0 Vicryl subdermal sutures and skin was closed with 4-0 Monocryl Steri-Strips and OpSite. An additional pressure dressing was placed with 4 x 4's and tape. Patient tolerated procedure well was taken the postanesthesia care in stable condition. Complications none
--- NOTE | 2023-01-23 08:27 | DCINST_ITS ---
Discharge Instructions Diet Discharge Diet: Light diet - advance as tolerated Activity Discharge Activity: May Not Drive (while taking narcotic pain medications.) May shower in (days): 1 Lifting Restrictions: No strenuous lifting Dressing / Incision Call your doctor if your incision/area has: Continuous Slow Oozing, Sudden Increased Bleeding, Increased Pain/ Swelling, Increased Redness, Foul Smelling Discharge and Swelling at the incision site Call your doctor if you observe: Fever of 101 or Higher Remove Dressing in: 2 days Cleanse incision/area with: Soap & Water Additional Dressing/Incision Instructions:: Steri-Strips will fall off in 7 to 10 days, if they do not fall off okay to remove after 10 days. Try to keep a pressure dressing on to help prevent/limit seroma for about 3 days if possible. Follow Up Care Please Follow Up With: Marisa Palm MD When: Call the office for a follow-up appointment 2 weeks; after 5 PM and on the weekends call [phone] with any concerns. Test Results: Test results from this visit will be discussed in further detail at your follow- up appointment, if applicable. Discharge Plan Admission Attending Provider: Marisa Palm Primary Care Provider: Bhavesh Guerrero Discharge Orders/Prescriptions Prescriptions: New hydrocodone-acetaminophen 5-325 mg tablet 1 tab PO Q6H PRN (Reason: pain) 3 Days Qty: 5 0RF Continued VSL#3 112.5 billion cell capsule 1 cap PO DAILY Qty: 30 2RF esomeprazole magnesium 20 mg capsule,delayed release(DR/EC) 20 mg PO DAILY Patient Comments: TAKE 1 CAPSULE BY MOUTHTEVERY MORNING BEFORE BREAKFAST. DO NOT OPEN CAPSULE iron, carbonyl 45 MG capsule 65 mg PO DAILYCM multivitamin with folic acid 1 TABLET tablet 1 tab PO DAILY potassium 99 MG tablet 550 mg PO DAILY calcium carbonate 500 MG tablet 500 mg PO DAILY cyanocobalamin-liver extract Tablet 1 tab PO DAILY sulfasalazine 500 mg tablet 500 mg PO TID folic acid 1 mg tablet 1 mg PO DAILY triamcinolone acetonide 0.5 % cream 1 applic TOPICAL PRN PRN (Reason: EXCEMA) Patient Comments: APPLY TO AFFECTED AREA OFHANDS 2 TIMES A DAY Referrals / Follow Up: Bhavesh Guerrero DO [Primary Care Provider] - Disposition Disposition (needs filled in before D/C Order can be placed): Home, Self Care
== END 2023-01-23 09:55 | disposition home or self-care (01) ==
LOC: SDC 06:02 → AC 06:03
PROVIDERS: PCP Family Medicine; Referring Provider Surgery; Visit Provider Surgery
PROC: (CPT 21931; principal; 2023-01-23 07:20)
DX: D17.1 Benign lipomatous neoplasm of skin and subcutaneous tissue of trunk (principal); K76.0 Fatty (change of) liver, not elsewhere classified; E66.9 Obesity, unspecified; D64.9 Anemia, unspecified; Z87.891 Personal history of nicotine dependence; Z86.16 Personal history of COVID-19; Z79.899 Other long term (current) drug therapy
CPT/HCPCS: 21931; 88304; J7120; J2405

== ENCOUNTER → 2023-04-15 | Outpatient (CLI) | payer OTHER, SELFPAY ==
--- NOTE | 2023-04-15 09:25 | MRI_ITS ---
STUDY: MRI LEFT SHOULDER REASON FOR EXAM: Female, 58 years old. Chronic left shoulder pain, status post immunizations with muscle atrophy. TECHNIQUE: Standardized fat and water weighted pulse sequences were obtained in all 3 orthogonal planes. COMPARISON: None. FINDINGS: There is a suspected full-thickness tear of the anterior distal supraspinatus tendon, overall measuring 1.0 cm in length (coronal T2 series 5 image 9) and 0.5 cm in width (axial T2 series 3 image 10). Normal infraspinatus tendon. There is mild subscapularis tendinosis. Normal teres minor tendon. Normal supraspinatus muscle. Normal infraspinatus muscle. Normal subscapularis muscle. Normal teres minor muscle. There is a tiny glenohumeral joint effusion. Normal humeral head and visualized proximal humerus. Normal biceps labral complex. Normal intracapsular long biceps tendon. Normal labrum. Normal capsulo-ligamentous complex. Normal rotator interval. There is hypertrophic acromioclavicular arthrosis with inferior osteophyte formation, with mild effacement of the supraspinatus myotendinous junction (sagittal T2 series 7 image 8). There is a Type II morphology (curved), with a neutral orientation. There is a small amount of subacromial-subdeltoid bursal fluid. Normal visualized coracohumeral and coracoacromial ligaments. Normal quadrilateral space. Normal axillary space. Normal deltoid muscle. Normal trapezius muscle. MRI/Upper Ext Joint Only(Routine) IMPRESSION: Suspected 1.0 x 0.5 cm full-thickness tear of the anterior distal supraspinatus tendon. Mild subscapularis tendinosis. Hypertrophic acromioclavicular arthrosis with inferior osteophyte formation, with mild effacement of the supraspinatus myotendinous junction. Tiny glenohumeral joint effusion. Small amount of subacromial-subdeltoid bursal fluid. Electronically Signed: Chris Thomson MD at 15:57 EST ,
== END | disposition home or self-care (01) ==
LOC: MRI 09:21
PROVIDERS: PCP Physician Assistant; Referring Provider Physician Assistant; Visit Provider Physician Assistant
DX: M25.512 Pain in left shoulder (principal); G89.29 Other chronic pain
CPT/HCPCS: 73221

== ENCOUNTER → 2024-03-01 | Outpatient (CLI) | payer OTHER, SELFPAY ==
--- NOTE | 2024-03-01 12:04 | CT_ITS ---
STUDY: CT ABDOMEN AND PELVIS WITHOUT CONTRAST REASON FOR EXAM: Female, 58 years old. Periumbilical pain, NAUSEA/VOMITING. PRIOR UTERUS REMOVED. History of Crohn''s disease. RADIATION DOSAGE (If Supplied By Facility): CTDIvol = ( 24.04 ) mGy, DLP = ( 1232.17 ) mGycm TECHNIQUE: Transaxial images were obtained from the dome of the diaphragm to the symphysis pubis without oral contrast, and without intravenous contrast. Sagittal and coronal images were reconstructed. Individualized dose optimization techniques were used for this CT. COMPARISON: Comparison is made with prior study dated December 09, 2017. FINDINGS: The visualized lung bases are unremarkable. The visualized portions of the heart are within normal limits. There is decreased attenuation of the liver consistent with steatosis. There is a solitary gallstone. This measures 2 cm. Normal spleen. Normal pancreas. There is a small, circumscribed, smooth, low attenuation left adrenal mass, consistent with an adrenal adenoma. This measures 1.3 cm. Normal right adrenal gland. Normal right kidney. Normal left kidney. There is a small hiatal hernia. Normal small intestine. Normal colon. The appendix is visualized and appears normal. Normal abdominal aorta. Normal inferior vena cava. Normal retroperitoneum. Normal urinary bladder. There is absence of the uterus consistent with a prior hysterectomy. There is a small umbilical hernia containing fat. The neck of the hernia measures 1.6 cm. There are increased markings within the fat in the hernia. Engorgement of the herniated fat should be ruled out. There are mild degenerative changes of the visualized lumbar spine. CT/Abdomen/Pelvis without Cont IMPRESSION: Fatty infiltration of the liver. Findings suggestive of a small left adrenal adenoma. Umbilical hernia containing fat with increased markings. Engorgement should BE ruled out. Clinical correlation recommended. The patient is status post hysterectomy. Solitary gallstone. Electronically Signed: Cabrera Fowler MD at 14:58 EST ,
[2024-03-01 12:53] LABS: Absolute Lymphocyte Count 2.87 X10^3/uL (0.83-4.51); Absolute Neutrophil Count 7.2 X10^3/uL (2.0-7.7); Basophil# 0.07 X10^3/uL; Basophil% 0.6 % (0-1); Eosinophils% 1.8 % (0-5); Hematocrit 40.4 % (37-47); Lymphocyte # 2.87 X10^3/ul (0.83-4.51); Lymphocyte % 26.3 % (19-41); Mean Corp Hgb Conc 32.2 g/dL (32-36); Mean Corpuscular Hgb 29.3 pg (27.0-32.0); Mean Platelet Vol. 11.3 fl (6.2-12.0); Monocyte# 0.56 X10^3/uL; Monocyte% 5.1 % (0-10); NRBC Flagged by Analyzer 0 % (0-5); Neutrophil # 7.19 X10^3/uL (2.7-7.7); Neutrophil % 65.8 % (47-70); Platelet Count 377 K/mm3 (150-450); Red Blood Count 4.44 M/mm3 (4.2-5.4); White Blood Count 10.9 K/mm3 (4.4-11.0)
[2024-03-01 13:19] LABS: ALB/GLOB Ratio 0.8 RATIO (0.9-2.4); AST(SGOT) 28 U/L (15-37); Alanine Aminotransfer ALT/SGPT 49 U/L (13-56); Albumin, Serum 3.5 g/dL (3.2-5.0); Alkaline Phosphatase 91 U/L (45-117); Anion Gap 6 (5-15); BUN 11 mg/dL (7-18); BUN/Creat Ratio 13.6 RATIO (10-20); Calcium,Total 9.3 mg/dL (8.5-10.1); Chloride 105 mmol/L (98-107); Creatinine, Serum 0.81 mg/dL (0.55-1.02); EST Glomerular Filtration Rate 77 mL/min (>60); Est Glom Filt Rate - Afr Amer 93 mL/min (>60); Globulin 4.3 g/dL (2.2-4.2); Glucose 121 mg/dL (74-106); Lipase 33 U/L (13-75); Potassium 3.6 mmol/L (3.5-5.1); Protein, Total 7.8 g/dL (6.4-8.2); Sodium Level 137 mmol/L (136-145)
== END | disposition home or self-care (01) ==
PROVIDERS: PCP Family Medicine; Referring Provider Physician Assistant; Visit Provider Physician Assistant
DX: R10.33 Periumbilical pain (principal); R11.2 Nausea with vomiting, unspecified
CPT/HCPCS: 36415; 74176; 80053; 83690; 85025

== ENCOUNTER → 2024-03-04 | Outpatient (CLI) | payer OTHER, SELFPAY | END | disposition home or self-care (01) | LOC: SL 20:01 | PROVIDERS: PCP Family Medicine; Referring Provider Internal Medicine Pulmonary Disease; Visit Provider Internal Medicine Pulmonary Disease | DX: G47.10 Hypersomnia, unspecified (principal) | CPT/HCPCS: 95810 ==

== ENCOUNTER 2024-03-25 10:03 | Day surgery (SDC) | payer OTHER, SELFPAY ==
--- NOTE | 2024-03-21 08:59 | EKG12_ITS ---
Test Reason : PRE OP Blood Pressure : */* mmHG Vent. Rate : 92 BPM Atrial Rate : 92 BPM P-R Int : 130 ms QRS Dur : 80 ms QT Int : 402 ms P-R-T Axes : 18 -28 34 degrees QTcB Int : 497 ms Normal sinus rhythm Cannot rule out Anterior infarct , age undetermined Abnormal ECG Confirmed by JONATHAN VANEGAS, JERAD ([id number]), art editor DORIE HAILE ([id number]) on 03/21/2024 10:08:35 AM Referred By: Marisa Palm Confirmed By: JERAD CASTILLO MD
--- NOTE | 2024-03-21 17:16 | PAT.ANESEVAL ---
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 When Was Last Pacemaker Check QUESTION #4 FULL TEXT: You/Your Family Experience fever (hyperthermia) with Anesthesia Last Oral Intake Last Oral intake: Last Oral Intake NPO since Meds taken in AM with sips of water? 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 Female Yes 03/18/24 08:14 HX of Motion Sickness No 03/18/24 08:14 HX of N/V After Surgery No 03/18/24 08:14 Non-Smoker Yes 03/18/24 08:14 Duration of Surgery greater No 03/18/24 08:14 than 60 minutes Number of Risk Factors 2 03/18/24 08:14 PONV Score Moderate Risk 03/18/24 08:14 Height & Weight Height & Weight: Anesthesia: Height & Weight Height 5 ft 6 in 03/07/24 15:25 Respiratory Assessment Respiratory Assessment - artificial flowers supervisor: Respiratory Tract Infection Hx - artificial flowers supervisor Hx Respiratory Tract Infection No 03/18/24 08:14 STOP Sleep Apnea STOP Sleep Apnea - artificial flowers supervisor: STOP Sleep Apnea - artificial flowers supervisor Hx Hypertension No 03/18/24 08:14 Hx Sleep Apnea No 03/18/24 08:14 CPAP No 01/12/23 15:49 BIPAP No 01/12/23 15:49 Do you snore loudly (louder No 03/18/24 08:14 than talking or can be heard Do you often feel tired/ No 03/18/24 08:14 fatigued/ sleepy during daytime? Has anyone observed you stop No 03/18/24 08:14 breathing during sleep? STOP Results Negative 03/18/24 08:14 QUESTION #5 FULL TEXT : Do you snore loudly (louder than talking or can be heard through closed doors)? 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 Specify any problems Hx of Preganancy in last 3 No 03/18/24 08:14 Months Nurse Filling Out Transfusion VLEHBURWELL 03/18/24 08:14 & Questions: Date: 03/18/24 03/18/24 08:14 Time: 08:21 03/18/24 08:14 Patient unable to answer at this time (ie. confused, unrespo /Reproduction History /Reproductive History - artificial flowers supervisor: /Reproductive Hx- artificial flowers supervisor Hx Now Gestational Age (in weeks): EDC: Hx Hx Para Hx Section SAB No 01/12/23 15:49 [facility] Medical History (Updated 03/18/24 @ 08:20 by Ana Hodge) History of Clostridium difficile infection Gout Low iron History of hiatal hernia Gastric reflux Left shoulder pain Lipoma of back Acute pharyngitis, unspecified Strain of right knee COVID-19 long hauler manifesting chronic cough Conjunctivitis, right eye Blepharitis of right lower eyelid Wears glasses Anxiety Diabetes Fatty liver Back pain Injury of back Migraine headache Hx of ulcerative colitis Heartburn Former smoker Shortness of breath on exertion Leg cramps History of echocardiogram Diarrhea Anemia Fatty liver Arthritis Home Medications ?Medication ?Instructions ?Recorded ?Last Taken ?Type multivitamin with folic acid 400 1 tab PO DAILY 12/26/15 Unknown History mcg tablet iron, carbonyl 45 mg tablet 65 mg PO DAILYCM 01/10/16 Unknown History calcium carbonate 500 mg PO DAILY 01/07/18 Unknown History potassium 99 mg tablet 550 mg PO DAILY 01/07/18 Unknown History Lactobac no.2-Bifidobac no.1-S. 1 cap PO DAILY #30 caps 12/21/20 Unknown Rx thermo 112.5 billion cell capsule (VSL#3) cyanocobalamin-liver extract tablet 1 tab PO DAILY 03/27/22 Unknown History folic acid 1 mg tablet 1 mg PO DAILY 03/27/22 Unknown History triamcinolone acetonide 0.5 % 1 applic topical PRN PRN EXCEMA 01/12/23 Unknown History topical cream omeprazole 40 mg capsule,delayed 40 mg PO QDAY #30 caps 03/07/24 Unknown Rx release allopurinol 100 mg tablet 100 mg PO DAILY 03/18/24 Unknown History trazodone 50 mg tablet 50 mg PO QHS 03/18/24 Unknown History Allergy/AdvReac Type Severity Reaction Status Date / Time acetaminophen (From Percocet) Allergy Itching Verified 03/07/24 15:26 latex Allergy Itching Verified 03/07/24 15:26 oxycodone (From Percocet) Allergy Itching Verified 03/07/24 15:26 Iodinated Contrast Media AdvReac NAUSEA,DIAP Verified 03/07/24 15:26 (Iodinated Contrast- Oral HORESIS and IV Dye) Sulfa (Sulfonamide AdvReac UNABLE TO Verified 03/07/24 15:26 Antibiotics) TAKE WITH CROHNS DISEASE Family History Mother Diabetes Thyroid disorder Father Colon cancer Heart disease Hypertension CVA (cerebral vascular accident) Other Colitis Ulcerative colitis Surgical History S/P excision of lipoma Hx of colonoscopy Hx of cystoscopy History of sinus surgery History of ankle surgery H/O: hysterectomy Social History Smoking Status: Former smoker alcohol intake: never Audit: Pertinent Findings Pertinent Findings EKG Perinent findings: 03/21/2024 normal sinus rhythm 92 bpm cannot rule out anterior infarct age undetermined Echo (EF%) pertinent findings: 12/2011 normal size function EF 65% Recommendation Anesthesia Recommendation Anesthesia recommendation: OPTIMIZED for anesthesia
[2024-03-25] VITALS (9 sets, daily range): BP systolic 148–168; BP diastolic 95–111; PULSE 65–87; RESP 14–18; TEMP 36.1–36.6; O2SAT 93–100; BMI 38.9
--- NOTE | 2024-03-25 10:22 | HP.PCM_ITS ---
History and Physical Date of Admission: 03/25/24 Date of Service: 03/07/24 MR#: [id number] Acct: [id number] Name: JEN HOLDER Rep #: [id number] : 1965 Provider: Dr. Marisa Palm MD Age/Sex: 58/F Location: [facility] Status: Signed Intake Vital Signs 04/27/2414:07 03/07/2415:25 Height 5 ft 6 in 5 ft 6 in Weight: 244 lb BMI 39.4 BP 137/94 H Blood Pressure Location Rt brachial Position Sitting Respiration 17 Pulse 88 Pulse Source Monitor Pulse Oximetry (%) 99 Oxygen Delivery Method room air Intake Visit Reasons: UMBILICAL HERNIA Chief Complaint: umbilical hernia Is patient in pain?: Yes Allergies acetaminophen (From Percocet) Allergy (Verified 03/07/24 15:26) Itchinglatex Allergy (Verified 03/07/24 15:26) Itchingoxycodone (From Percocet) Allergy (Verified 03/07/24 15:26) ItchingIodinated Contrast Media (Iodinated Contrast- Oral and IV Dye) Adverse Reaction (Verified 03/07/24 15:26) NAUSEA,DIAPHORESISSulfa (Sulfonamide Antibiotics) Adverse Reaction (Verified 03/07/24 15:26) UNABLE TO TAKE WITH CROHNS DISEASE Medications ?Medication ?Instructions ?Recorded ?Confirmed ?Type multivitamin with folic acid 400 1 tab PO DAILY 12/26/15 03/07/24 History mcg tablet iron, carbonyl 45 mg tablet 65 mg PO DAILYCM 01/10/16 03/07/24 History calcium carbonate 500 mg PO DAILY 01/07/18 03/07/24 History potassium 99 mg tablet 550 mg PO DAILY 01/07/18 03/07/24 History Lactobac no.2-Bifidobac no.1-S. 1 cap PO DAILY #30 caps 12/21/20 03/07/24 Rx thermo 112.5 billion cell capsule (VSL#3) cyanocobalamin-liver extract tablet 1 tab PO DAILY 03/27/22 03/07/24 History folic acid 1 mg tablet 1 mg PO DAILY 03/27/22 03/07/24 History sulfasalazine 500 mg tablet 500 mg PO TID 03/27/22 03/07/24 History triamcinolone acetonide 0.5 % 1 applic topical PRN PRN EXCEMA 01/12/23 03/07/24 History topical cream omeprazole 40 mg capsule,delayed 40 mg PO QDAY #30 caps 03/07/24 Rx release PFSH Medical History Acute pharyngitis, unspecified Anemia Anxiety Arthritis Back pain Blepharitis of right lower eyelid Conjunctivitis, right eye COVID-19 long hauler manifesting chronic cough Diabetes Diarrhea Fatty liver Fatty liver Former smoker Heartburn History of echocardiogram Hx of ulcerative colitis Injury of back Left shoulder pain Leg cramps Lipoma of back Migraine headache Shortness of breath on exertion Strain of right knee Wears glasses Surgical History S/P excision of lipoma Hx of colonoscopy Hx of cystoscopy History of sinus surgery History of ankle surgery H/O: hysterectomy Family History Mother Diabetes Thyroid disorderFather Colon cancer Heart disease Hypertension CVA (cerebral vascular accident)Other Colitis Ulcerative colitis Social History Smoking Status: Former smoker alcohol intake: never HPI HPI HPI: 58-year-old female presents due to umbilical hernia on CT. Patient is also interested to discuss her other findings including cholelithiasis, 1.3 cm adrenal nodule, hiatal hernia. Patient states she has been having some issues with umbilical hernia and has been having to push it back in and has been more painful she said she is notices for about the last 2 weeks. Patient's previous CAT scan 2018 did show umbilical hernia was little smaller. Patient has never had surgery in this area. Patient does have GERD for the last year daily has been taking a lot of Tums has not been on any Pepcid or omeprazole. Patient also denies any right upper quadrant pain nausea or vomiting after eating due to the gallstone which again was seen in the CAT scan in 2018 as well. ROS General General: Yes fatigue; No weight change, appetite, colon cancer or breast cancer HEENT HEENT: No difficulty swallowing, eye injury, eye surgery, swollen glands or hoarseness Endo Endocrine: No thyroid disease, diabetes mellitus, thyroid cancer, Hair loss, heat intolerance or cold intolerance Skin Skin: Yes rash; No changing moles Musc Musculoskeletal: Yes gout; No back problems, arthritis, rheumatoid arthritis or joint pain Cardio Cardiovascular: No murmur, pacemaker, heart disease, atrial fibrillation, high blood pressure, heart attack, heart stent, palpitations, shortness of breat with exertion or chest pain Psych Psychiatric: No depression, anxiety or hearing voices Resp Respiratory: No shortness of breath, No sleep apnea, Yes cough, No COPD, No asthma, No emphysema and No wheezing Gastro Gastrointestinal: Yes abdominal pain, Yes nausea or vomiting, Yes diarrhea, No constipation, No blood in stool, Yes acid reflux, No hemorrhoids, Yes ulcers, Yes gallbladder problem and No black,tarry stools Dennys Hematologic: No blood thinners, No blood disorders, No bleeding, No anemia and No blood clots Neuro Neurologic: No numbness and No tingling Exam Const General: cooperative, healthy appearing, comfortable and no acute distress HENMT Head: normocephalic and atraumatic Neck Neck: supple Resp Effort & Inspection: normal respiratory effort Cardio Rate: regular rate GI Inspection: non-distended Palpation: soft and hernia umbilical (Reducible, tender when reducing) Skin General: no rashes or lesions noted Neuro General: CN's II-XI intact bilaterally Extrem General: normal to inspection Psych Mental Status: mental status grossly normal Attitude: cooperative Assessment and Plan Assessment and Plan (1) Umbilical hernia: Status: Acute (2) GERD (gastroesophageal reflux disease): Status: Acute (3) Adrenal nodule: Status: Acute (4) BMI 38.0-38.9,adult: Status: Acute Medications: New omeprazole swallow whole; do not crush, chew, dissolve, cut, break 40 mg PO QDAY 30 caps 6RF Plan Discussed with patient that do not recommend doing a cholecystectomy when she is not having symptoms as the cholelithiasis was incidentally found on CT. However she does start to have symptoms would recommend having it removed at that time. Also discussed that the adrenal nodule is only 1.3 cm this does not meet requirement for necessary removal which we do not do here in [place] as well if she is concerned she can try to get hormone workup with endocrine or PCP. Discussed that her hiatal hernia would likely not be fixed with an Piter due to her BMI being 38 as gastric bypass has been proven to be a better method for people with this BMI unless she would to lose weight. Will plan to give patient omeprazole and that will help more than Tums. Plan to do an open umbilical herniorrhaphy with mesh. Reviewed the procedure with the patient including the risks, including but not limited to infection, bleeding, injury to the small bowel, and recurrence. Patient and her have no further question this time. Marisa Palm M.D. Pager: [phone] [facility] [address] [place] [address], [address] [place] [id number] Office: [phone] Coding Level of Care Code Off vis,est,level 3 Diagnoses Umbilical hernia K42.9 GERD (gastroesophageal reflux disease) K21.9 Adrenal nodule E27.9 BMI 38.0-38.9,adult Z68.38 03/08/24 0841 <Electronically signed by Marisa Palm MD> Date Marisa Palm MD
[2024-03-25] MEDS: 0.9% Normal Saline (1000mL) 1,000 ML 15 ML IV (10:32)
--- NOTE | 2024-03-25 10:43 | PCM.PRE.AN2 ---
ASA Classification* ASA Classification ASA Classification: 2 Assessment & Plan Anesthesia* Anesthesia Assessment Anesthesia Assessment: Discussed sedation and/or anesthesia options, risks, benefits, and alternatives with patient/parents/legal guardian/POA. Questions invited. The patient/parents/legal guardian/POA seems to understand and agrees to proceed with anesthesia plan. Reviewed the physical assessment, medical history, allergy history and patient home medications list prior to surgery/procedure/anesthetic and documented any changes. Performed airway and anesthesia risk assessments. Anesthesia Type Anesthesia Type: General History Source History Obtained from:: Patient and Chart Anesthesia Focused Assessment* Temperature: 98 F Pulse Rate: 87 Blood Pressure: 156/100 Respiratory Rate: 16 Pulse Ox: 100 Oxygen Delivery Method: Room Air Airway Assessment Mouth opens: 2 cm Mallampati Score: IV Teeth Condition: Caps/Crowns (Patient has a couple crowns. They are tight.) Neck Range of motion (ROM): Full ROM Focused Labs Anesthesia Preop lab: CBC WBC 10.9 K/mm3 (4.4-11.0) 03/01/24 12:37 RBC 4.44 M/mm3 (4.2-5.4) 03/01/24 12:37 Hgb 13.0 g/dL (12.0-15.0) 03/01/24 12:37 Hct 40.4 % (37-47) 03/01/24 12:37 Plt Count 377 K/mm3 (150-450) 03/01/24 12:37 CHEMISTRY Potassium 3.6 mmol/L (3.5-5.1) 03/01/24 12:37 Sodium 137 mmol/L (136-145) 03/01/24 12:37 Phosphorus 3.4 mg/dL (2.5-4.9) 01/01/24 07:07 BUN 11 mg/dL (7-18) 03/01/24 12:37 Creatinine 0.81 mg/dL (0.55-1.02) 03/01/24 12:37 Glucose 121 mg/dL (74-106) H 03/01/24 12:37 TSH 1.88 uIU/mL (0.358-3.74) 11/10/18 06:58 COAG PT 12.9 SECONDS (11.7-14.9) 01/10/16 09:47 Urine Test Negative Negative 01/16/16 06:05 Pre-Assessment Diagnosis/Proposed Procedure Planned Operative Procedure(s): Hernia, Open Umbilical Repair w/ Mesh Anesthesia History 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 When Was Last Pacemaker Check QUESTION #4 FULL TEXT: You/Your Family Experience fever (hyperthermia) with Anesthesia Last Oral Intake Last Oral intake: Last Oral Intake NPO since 20:00 03/25/24 10:27 Meds taken in AM with sips of water? Meds patient instructed to take am of surgery Any additional information?: Yes PONV PONV - milk route supervisor: PONV - milk route supervisor Female Yes 03/18/24 08:14 HX of Motion Sickness No 03/18/24 08:14 HX of N/V After Surgery No 03/18/24 08:14 Non-Smoker Yes 03/18/24 08:14 Duration of Surgery greater No 03/18/24 08:14 than 60 minutes Number of Risk Factors 2 03/18/24 08:14 PONV Score Moderate Risk 03/18/24 08:14 Height & Weight Height & Weight: Anesthesia: Height & Weight Height 5 ft 6 in 03/25/24 10:27 Weight: 109.3 kg 03/25/24 10:27 Body Mass Index (BMI) 38.9 03/25/24 10:27 Respiratory Assessment Respiratory Assessment - milk route supervisor: Respiratory Tract Infection Hx - milk route supervisor Hx Respiratory Tract Infection No 03/18/24 08:14 STOP Sleep Apnea STOP Sleep Apnea - milk route supervisor: STOP Sleep Apnea - milk route supervisor Hx Hypertension No 03/18/24 08:14 Hx Sleep Apnea No 03/18/24 08:14 CPAP No 01/12/23 15:49 BIPAP No 01/12/23 15:49 Do you snore loudly (louder No 03/18/24 08:14 than talking or can be heard Do you often feel tired/ No 03/18/24 08:14 fatigued/ sleepy during daytime? Has anyone observed you stop No 03/18/24 08:14 breathing during sleep? STOP Results Negative 03/18/24 08:14 QUESTION #5 FULL TEXT : Do you snore loudly (louder than talking or can be heard through closed doors)? Tobacco Use History Tobacco Use History - milk route supervisor: Tobacco Use History - milk route supervisor Tobacco Use Smoking Status Former smoker 03/18/24 08:14 Hx Tobacco Use No 03/18/24 08:14 Years Smoking Packs Smoked per Day Smoking Cessation Date was No - quit smoking greater 03/18/24 08:14 within the last 15 years than 15 years ago Hx Smoking Cessation Date Hx Smoking Cessation No 03/18/24 08:14 Counseling Hematologic Medial History Hematologic Hx - milk route supervisor: Hematologic Medical Hx - vocational services specialist Hx of Blood Transfusion No 03/18/24 08:14 Hx of Transfusion in last 3 No 03/18/24 08:14 Months Date of Last Transfusion (if within last 3 months) Ever experience any problems No 03/18/24 08:14 with transfusion(s)? Specify any problems Hx of Preganancy in last 3 No 03/18/24 08:14 Months Nurse Filling Out Transfusion VLEHVICTORIA 03/18/24 08:14 & Questions: Date: 03/18/24 03/18/24 08:14 Time: 08:21 03/18/24 08:14 Patient unable to answer at this time (ie. confused, unrespo /Reproduction History /Reproductive History - milk route supervisor: /Reproductive Hx- milk route supervisor Hx Now Gestational Age (in weeks): EDC: Hx Hx Para Hx Section SAB No 01/12/23 15:49 Active Medications Active Medications: Current Medications Generic Name Dose Route Start Last Admin Trade Name Freq PRN Reason Stop Dose Admin Cefazolin Sodium 2 gm/ N/A 20 mls @ 400 mls/hr 03/25/24 12:00 IV 03/25/24 12:02 PREOP ONE Sodium Chloride 1,000 mls @ 15 mls/hr 03/25/24 10:20 03/25/24 10:32 IV 03/30/24 23:39 15 mls/hr .Q48H HECTOR Administration Protocol [facility] Medical History History of Clostridium difficile infection Gout Low iron History of hiatal hernia Gastric reflux Left shoulder pain Lipoma of back Acute pharyngitis, unspecified Strain of right knee COVID-19 long hauler manifesting chronic cough Conjunctivitis, right eye Blepharitis of right lower eyelid Wears glasses Anxiety Diabetes Fatty liver Back pain Injury of back Migraine headache Hx of ulcerative colitis Heartburn Former smoker Shortness of breath on exertion Leg cramps History of echocardiogram Diarrhea Anemia Fatty liver Arthritis Home Medications ?Medication ?Instructions ?Recorded ?Last Taken ?Type multivitamin with folic acid 400 1 tab PO DAILY 12/26/15 Unknown History mcg tablet iron, carbonyl 45 mg tablet 65 mg PO DAILYCM 01/10/16 Unknown History calcium carbonate 500 mg PO DAILY 01/07/18 Unknown History potassium 99 mg tablet 550 mg PO DAILY 01/07/18 Unknown History Lactobac no.2-Bifidobac no.1-S. 1 cap PO DAILY #30 caps 12/21/20 Unknown Rx thermo 112.5 billion cell capsule (VSL#3) cyanocobalamin-liver extract tablet 1 tab PO DAILY 03/27/22 Unknown History folic acid 1 mg tablet 1 mg PO DAILY 03/27/22 Unknown History triamcinolone acetonide 0.5 % 1 applic topical PRN PRN EXCEMA 01/12/23 Unknown History topical cream omeprazole 40 mg capsule,delayed 40 mg PO QDAY #30 caps 03/07/24 Unknown Rx release allopurinol 100 mg tablet 100 mg PO DAILY 03/18/24 Unknown History trazodone 50 mg tablet 50 mg PO QHS 03/18/24 Unknown History hydrocodone-acetaminophen 5-325mg 1 tab PO Q6H PRN pain 3 days #10 03/25/24 Unknown Rx 5mg-325mg tabs Allergy/AdvReac Type Severity Reaction Status Date / Time latex Allergy Itching Verified 03/25/24 10:26 oxycodone (From Percocet) Allergy Itching Verified 03/25/24 10:26 Iodinated Contrast Media AdvReac NAUSEA,DIAP Verified 03/25/24 10:26 (Iodinated Contrast- Oral HORESIS and IV Dye) Sulfa (Sulfonamide AdvReac UNABLE TO Verified 03/25/24 10:26 Antibiotics) TAKE WITH CROHNS DISEASE Family History Mother Diabetes Thyroid disorder Father Colon cancer Heart disease Hypertension CVA (cerebral vascular accident) Other Colitis Ulcerative colitis Surgical History S/P excision of lipoma Hx of colonoscopy Hx of cystoscopy History of sinus surgery History of ankle surgery H/O: hysterectomy Social History Smoking Status: Former smoker alcohol intake: never Review of Systems (Anesthesia) ROS Narrative System reviewed and no additional complaints, except as documented.
[2024-03-25] MEDS: Cefazolin 2 GM in Syringe IV (11:10)
[2024-03-25] MEDS: Bupivacaine Mpf 0.5% 30 ML VIAL (11:26)
--- NOTE | 2024-03-25 11:49 | PCM.OPRPT ---
Operative Report (Standard) Operative Information Date of Procedure: 03/25/24 Pre-Operative Diagnosis: Umbilical hernia Post-Operative Diagnosis: Same Surgery/Procedure Performed: Umbilical hernia pair with mesh research pharmacist: Yes Mixing Tumbler Operator: Gabo Root Tasks completed by first assistant manager: Opening & closing Type of Anesthesia: General/Supplemental RN Documented Start/Stop Times: Operation Date: 03/25/24 12:00 Case Time Into Pre-Op 03/25/24 10:11 Out of Pre-Op 03/25/24 11:01 Anesthesia Start 03/25/24 11:07 Into Room 03/25/24 11:07 Procedure Start 03/25/24 11:20 Procedure End 03/25/24 11:58 Anesthesia End 03/25/24 12:04 Out of Room 03/25/24 12:04 Into Recovery 03/25/24 12:10 Into Phase II Recovery 03/25/24 13:14 Out of Recovery 03/25/24 13:14 Procedure Start Time: 11:20 Procedure Stop Time: 11:58 Select all DRAINS/GRAFTS/IMPLANTS that apply: Prosthetic device Prosthetic device details: Ventralex ST hernia patch 4.3 cm Lot [id number] Special Medications: Ancef 2 g IV x 1 Estimated Blood Loss: < 10 cc Specimen collected: No Description of surgery: Patient was brought into the room placed supine on the operating table. Correct patient, procedure, site, positioning, special, was verified prior to procedure. General anesthesia was induced. The abdomen was prepped draped in usual sterile fashion. A curvilinear incision was made below the umbilicus with a 15 blade scalpel. This was deepened with electrocautery. A hemostat was used to go around the stalk of the umbilicus and Metzenbaum scissors was used to carefully divide the hernia sac from the skin of the umbilicus. The fascia around the hernia defect was cleared and the hernia defect measured 1.4 cm x 1.[address] hernia patch 4.3 cm was selected. This was secured laterally at its tails with 0 Prolene horizontal mattress suture. The hernia defect was closed with 2 [id number] 0 Prolene. The wound was irrigated with saline. Hemostasis was assured. The skin of the umbilicus was secured to the fascia using 3-0 Vicryl suture interrupted. The incision was closed with 3-0 Vicryl subdermal interrupted sutures and the skin was closed with interrupted 4-0 Monocryl sutures. Steri-Strips and Tegaderm and OpSite were placed over the incision once sterile cotton balls were placed in the umbilicus. Patient was extubated. Patient tolerated procedure well and was taken to the postanesthesia care unit in stable condition. Surgical Findings: 1.4 cm umbilical hernia Complications Complications: No
--- NOTE | 2024-03-25 11:52 | EX.PCM.DISCH ---
Discharge Instructions Diet Discharge Diet: Light diet - advance as tolerated Activity May shower in (days): 5 (Keep umbilical dressing clean dry and intact for 5 days. Okay to tape off with a Ziploc bag to shower. Or lower shower and upper sponge bath.) Lifting Restrictions: no lifting >20 lbs x 2 wks, no strenuous exercise for 4 wks Additional Activity Instructions:: - Dressing / Incision Call your doctor if your incision/area has: Continuous Slow Oozing, Sudden Increased Bleeding, Increased Pain/ Swelling, Increased Redness, Foul Smelling Discharge and Swelling at the incision site Call your doctor if you observe: Fever of 101 or Higher Remove Dressing in: 5 days (After 5 days okay to remove surgical dressing. Place cotton ball or rolled up gauze in bellybutton and retape daily for 2 more days.) Cleanse incision/area with: Do not get Incision Wet (for 5 days) Additional Dressing/Incision Instructions:: Steri-Strips will fall off in 7 to 10 days, if they do not fall off okay to remove after 10 days. Follow Up Care Please Follow Up With: Marisa Palm MD When: Call the office for a follow-up appointment 2 weeks; after 5 PM and on the weekends call [phone] with any concerns. Test Results: Test results from this visit will be discussed in further detail at your follow-up appointment, if applicable. Discharge Plan Admission Attending Provider: Marisa Palm Primary Care Provider: Rolando Ceballos Instructions Print Language: [place] Discharge Orders/Prescriptions Prescriptions: New hydrocodone-acetaminophen 5-325 mg tablet 1 tab PO Q6H PRN (Reason: pain) 3 Days Qty: 10 0RF Continued VSL#3 112.5 billion cell capsule 1 cap PO DAILY Qty: 30 2RF omeprazole 40 mg capsule,delayed release(DR/EC) 40 mg PO QDAY Qty: 30 6RF Rx Instructions: swallow whole; do not crush, chew, dissolve, cut, break iron, carbonyl 45 MG capsule 65 mg PO DAILYCM multivitamin with folic acid 1 TABLET tablet 1 tab PO DAILY potassium 99 MG tablet 550 mg PO DAILY calcium carbonate 500 MG tablet 500 mg PO DAILY cyanocobalamin-liver extract Tablet 1 tab PO DAILY folic acid 1 mg tablet 1 mg PO DAILY triamcinolone acetonide 0.5 % cream 1 applic TOPICAL PRN PRN (Reason: EXCEMA) Patient Comments: APPLY TO AFFECTED AREA OFYHANDS 2 TIMES A DAY trazodone 50 mg tablet 50 mg PO QHS allopurinol 100 mg tablet 100 mg PO DAILY Other Ambulatory Orders: 12 Lead EKG (Routine) Timeframe: [id number] Location: None Selected Ordered By: Dr. Juan Polk Referrals / Follow Up: Rolando Ceballos DO [Primary Care Provider] - Disposition Disposition (needs filled in before D/C Order can be placed): Home, Self Care
--- NOTE | 2024-03-25 12:08 | PCM.POST.ANE ---
Anesthesia: Postop Eval I Current Vital Signs Temperature: 97.4 F Pulse Rate: 80 Blood Pressure: 163/111 Respiratory Rate: 18 Pulse Ox: 97 Oxygen Delivery Method: Room Air Assessment Airway patent: Yes Spontaneous unlabored respirations: Yes Mental status: Asleep nausea: No Vomiting: No Anesthesia Complication: No Fluid Hydration Crystalloid volume administer (ml): 700 Total IV fluid infused: 700 Progress Note Anesthesia document: Postop Eval 1 completed: Yes
== END 2024-03-25 14:27 | disposition home or self-care (01) ==
LOC: SDC 10:05 → AC 10:06
PROVIDERS: PCP Family Medicine; Referring Provider Surgery; Visit Provider Surgery
PROC: (CPT 49591; principal; 2024-03-25 11:45)
DX: K42.9 Umbilical hernia without obstruction or gangrene (principal); K21.9 Gastro-esophageal reflux disease without esophagitis; Z79.899 Other long term (current) drug therapy; Z86.16 Personal history of COVID-19; Z87.891 Personal history of nicotine dependence
CPT/HCPCS: 49591; 00830; 93005; C1781; J2405

== ENCOUNTER → 2024-04-08 | Outpatient (CLI) | payer OTHER, SELFPAY ==
--- NOTE | 2024-04-08 09:58 | BI_ITS ---
MAMMOGRAPHY - BILATERAL SCREENING REASON FOR EXAM: Female, 58 years old. Routine annual screening examination. PERTINENT HISTORY: Aunt with breast cancer. TECHNIQUE: Digital bilateral breast cherelle (3D mammographic acquisition) in the CC and MLO projections. 2-D mediolateral oblique (MLO) and craniocaudad (CC) views of both breasts were obtained. CAD: Full Field Digital Mammography with Computer Added Detection was performed. COMPARISON: Comparison is made with prior study dated April 24, 2020 and March 07, 2016. FINDINGS: Breast Composition: The breasts are almost entirely fatty. There are no dominant masses or suspicious calcifications. Stable bilateral fat-containing axillary lymph nodes. No other significant abnormalities are identified. There has been no significant change since the prior study. BI/SCRN MAMM (CAD)W/CHERELLE BILAT IMPRESSION: Stable bilateral screening mammogram. Yearly follow-up mammogram recommended. (A) ASSESSMENT CATEGORY: BIRADS Category 2: Benign. A letter regarding these results will be sent to the patient by the facility within 30 days. Approximately 10% of breast cancers are not detected by mammography. A normal mammogram should not delay biopsy of a clinically suspicious abnormality. [id number] Electronically Signed: Cabrera Fowler MD at 10:52 EST ,
== END | disposition home or self-care (01) ==
LOC: OPBI 09:56
PROVIDERS: PCP Family Medicine; Referring Provider Physician Assistant; Visit Provider Physician Assistant
DX: Z12.31 Encounter for screening mammogram for malignant neoplasm of breast (principal)
CPT/HCPCS: 77063; 77067

== ENCOUNTER → 2024-04-15 | Outpatient (CLI) | payer OTHER, SELFPAY ==
--- NOTE | 2024-04-15 14:49 | ECHOD_ITS ---
Reason For Study: Abnormal EKG Procedure This was a 2D Doppler, Color Flow transthoracic echocardiogram. Exam performed in department. Left Ventricle Normal LV size. Left ventricular systolic function is normal. The left ventricular ejection fraction is 65 %. Stage 1 diastolic dysfunction. No regional wall motion abnormalities noted. Right Ventricle Normal RV size. Normal systolic function. Atria Normal left atrium. Normal right atrium. Mitral Valve Normal mitral valve. Tricuspid Valve Normal tricuspid valve. Aortic Valve Trisinus/trileaflet aortic valve. Pulmonic Valve Normal pulmonic valve. Great Vessels Normal aortic root. The pulmonary artery is normal size. Inferior vena cava collapse with respiration. Pericardium/Pleural No pericardial effusion. MMode/2D Measurements & Calculations LVIDd: 4.5 cm IVSd: 1.3 cm Ao root diam: 3.3 cm LVIDs: 2.8 cm LVPWd: 1.0 cm RVDd: 2.8 cm FS: 38.7 % LAV(MOD-bp): 35.2 ml LVAd ap4: 27.0 cm2 SV(MOD-sp4): 45.9 ml LAV(MOD-bp) Indexed: 16.2 ml/m2 LVLd ap4: 8.1 cm SI(MOD-sp4): 21.1 ml/m2 LAV(MOD-sp2): 38.8 ml EDV(MOD-sp4): 74.4 ml LAV(MOD-sp4): 31.3 ml EDV(sp4-el): 76.6 ml LVAs ap4: 14.4 cm2 LVLs ap4: 6.7 cm ESV(MOD-sp4): 28.5 ml ESV(sp4-el): 26.4 ml EF(MOD-sp4): 61.7 % EF(sp4-el): 65.5 % SV(sp4-el): 50.1 ml LA A4 area: 13.2 cm2 LA dimension(2D): 4.2 cm RA A4 area: 11.8 cm2 Time Measurements MV dec time: 0.16 sec Doppler Measurements & Calculations MV E max edmond: 63.3 cm/sec Lat Peak E' Edmond: 12.3 cm/sec Med Peak E' Edmond: 6.6 cm/sec MV A max edmond: 107.4 cm/sec E/E' lat: 5.1 E/E' med: 9.6 MV E/A: 0.59 MV V2 max: 128.6 cm/sec MV P1/2t max edmond: 69.4 cm/sec Ao V2 max: 169.9 cm/sec MV max P.6 mmHg MV P1/2t: 53.4 msec Ao max P.5 mmHg MV V2 mean: 67.4 cm/sec MV mean P.2 mmHg MV dec slope: 380.6 cm/sec2 MV V2 VTI: 18.6 cm MVA(P1/2t): 4.1 cm2 LV V1 max: 146.3 cm/sec PA V2 max: 99.4 cm/sec LV V1 max P.6 mmHg LV V1 mean P.4 mmHg LV V1 mean: 97.4 cm/sec LV V1 VTI: 27.2 cm ECHO/Echo Complete Interpretation Summary Normal LV size. Left ventricular systolic function is normal. The left ventricular ejection fraction is 65 %. Stage 1 diastolic dysfunction. Ordering Physician: Trent Jacobs Referring Physician: Trent Jacobs Performed By: Cornelio Romero RCS
== END | disposition home or self-care (01) ==
LOC: CVS 14:49
PROVIDERS: PCP Family Medicine; Referring Provider Physician Assistant; Visit Provider Physician Assistant
DX: R94.31 Abnormal electrocardiogram [ECG] [EKG] (principal); R07.9 Chest pain, unspecified
CPT/HCPCS: 93306

== ENCOUNTER → 2024-04-28 | Outpatient (CLI) | payer OTHER, SELFPAY ==
--- NOTE | 2024-04-28 13:48 | CT_ITS ---
PROCEDURE: LIMITED CHEST CT CARDIAC ONLY REASON FOR EXAM: Chest pain. TECHNIQUE: Chest CT with intravenous contrast. CONTRAST: 100 mL of Isovue 370 was given intravenously. COMPARISON: None. FINDINGS: Hardware: None. Lymph nodes: No mediastinal hilar or axillary lymphadenopathy. Heart and Vasculature: Coronary artery calcification. Thoracic aorta and pulmonary arteries are unremarkable. Lungs and Airways: The lungs are normally expanded and clear. Pleura: No pleural effusion. No pneumothorax. Upper Abdomen: Diffuse fatty infiltration of the liver. Bones: Bone windows are unremarkable. CT/Limited Chest CT Cardiac Only IMPRESSION: Coronary artery calcification. One or more dose reduction techniques were used (e.g., Automated exposure contr ol, adjustment of the mA and/or kV according to patient size, use of iterative reconstruction technique). Reading Location: [id number]
[2024-04-28 14:12] VITALS: BP 178/110; PULSE 100; RESP 18; O2SAT 99; BMI 38.7
[2024-04-28 14:38] VITALS: BP 168/98; PULSE 89
[2024-04-28] MEDS: Metoprolol Tartrate 5 MG/5 ML Vial IV ×3 (14:38→14:51)
[2024-04-28 14:45] VITALS: BP 157/84; PULSE 86
[2024-04-28 14:51] VITALS: BP 151/97; PULSE 84
[2024-04-28 15:01] VITALS: PULSE 82
[2024-04-28] MEDS: Nitroglycerin SL (ED/IMG/CATH) 0.4 MG TABLET SL (15:01)
[2024-04-28 15:07] VITALS: BP 145/97; PULSE 83; RESP 16; O2SAT 96
--- NOTE | 2024-04-28 17:07 | CCTA.WCONT ---
CCTA w/Cont Coronary Arteries Date of Study:: 04/28/24 Coronary Calcium Scoring: High-resolution Computed Tomographic imaging of the chest was performed on [04/28/24 ], with particular attention paid to the coronary arteries. Intravenous contrast agent was administered per protocol and images reconstructed and displayed. LEFT MAIN CORONARY ARTERY: Arises from the left coronary Cusp with no significant stenosis present. [] LEFT ANTERIOR DESCENDING CORONARY ARTERY: The left anterior descending artery has no significant atherosclerotic plaquing noted. [] LEFT CIRCUMFLEX CORONARY ARTERY: Nondominant vessel with no significant atherosclerotic plaquing. [] RIGHT CORONARY ARTERY: Dominant vessel with no significant atherosclerotic plaquing noted. Conclusion: No significant atherosclerotic plaquing noted. []
== END | disposition home or self-care (01) ==
LOC: CT 13:43
PROVIDERS: PCP Family Medicine; Referring Provider Physician Assistant; Visit Provider Physician Assistant
DX: R07.9 Chest pain, unspecified (principal); R94.31 Abnormal electrocardiogram [ECG] [EKG]
CPT/HCPCS: 75574; 76380; 96374; Q9967

== ENCOUNTER → 2024-04-29 | Outpatient (CLI) | payer OTHER, SELFPAY | END | disposition home or self-care (01) | LOC: SL 20:07 | PROVIDERS: PCP Family Medicine; Referring Provider Internal Medicine Pulmonary Disease; Visit Provider Internal Medicine Pulmonary Disease | DX: G47.33 Obstructive sleep apnea (adult) (pediatric) (principal) | CPT/HCPCS: 95811 ==

== ENCOUNTER → 2024-08-12 | Outpatient (CLI) | payer OTHER, SELFPAY ==
--- NOTE | 2024-08-12 06:29 | US_ITS ---
PROCEDURE: ABDOMEN LIMITED N/A REASON FOR EXAM: CHEST PAIN, HX OF GALLSTONES COMPARISON: Prior ultrasound dated August 06, 2021. FINDINGS: Liver: Diffusely echogenic suggesting fatty infiltration. Hepatomegaly. It measures 18.9 cm. Gallbladder: There is a 2 cm x 2.3 cm x 1.9 cm solitary gallstone in the neck of the gallbladder. The gallbladder wall measures 3 mm. Common bile duct: Normal measuring 4 mm. . Pancreas: Normal Other: Normal right kidney. US/Abdomen Limited IMPRESSION: Solitary gallstone measuring 2 cm x 2.3 cm 1.9 cm in the neck of the gallbladde r. Hepatomegaly and diffuse fatty infiltration of the liver. Reading Location: [place] [id number]
== END | disposition home or self-care (01) ==
LOC: US 06:29
PROVIDERS: PCP Family Medicine; Referring Provider Family Medicine; Visit Provider Family Medicine
DX: R07.9 Chest pain, unspecified (principal); Z87.19 Personal history of other diseases of the digestive system
CPT/HCPCS: 76705

== ENCOUNTER → 2024-08-20 | Outpatient (CLI) | payer OTHER, SELFPAY ==
[2024-08-20 12:19] LABS: Uric Acid 5.3 mg/dL (2.6-6.0)
== END | disposition home or self-care (01) ==
LOC: LAB 09:56
PROVIDERS: PCP Family Medicine; Referring Provider Family Medicine; Visit Provider Family Medicine
DX: E79.0 Hyperuricemia without signs of inflammatory arthritis and tophaceous disease (principal)
CPT/HCPCS: 36415; 84550

== ENCOUNTER → 2024-08-22 | Outpatient (CLI) | payer OTHER, SELFPAY ==
[2024-08-22 08:49] LABS: Glucose 162 mg/dL (70-99)
[2024-08-22 09:33] LABS: Hemoglobin A1c 8.8 % (<=5.6)
== END | disposition home or self-care (01) ==
PROVIDERS: PCP Family Medicine; Referring Provider Family Medicine; Visit Provider Family Medicine
DX: R73.9 Hyperglycemia, unspecified (principal)
CPT/HCPCS: 36415; 82947; 83036

== ENCOUNTER → 2024-09-30 | Outpatient (CLI) | payer OTHER, SELFPAY ==
--- OUTSIDE RECORDS SUMMARY | 2024-09-30 06:41 | XMS RPT_ITS | CCD ---
Author Organization [facility] Care Team Providers Care Liquor Clerk Name Role Phone Cedric RODRIGEZTiffany Candida Unavailable [phone] Bhavesh Guerrero Primary Care Provider Dr. Bhavesh Guerrero Referring Provider FriendDr. White Attending Provider [phone] DHAVAL Aceves Attending Provider Dr. Christopher Ewing Other Provider Dr. Bhavesh Guerrero Primary Care Provider Dr. Bhavesh Guerrero Referring Provider Dr. Christopher Ewing Attending Provider DHAVAL English Attending Provider [phone] Bhavesh Guerrero Primary Care Provider Dr. Bhavesh Guerrero Referring Provider DHAVAL Aceves Attending Provider Dr. Christopher Ewing Attending Provider [phone] Dr. Christopher Ewing Other Provider DHAVAL English Attending Provider [phone] DHAVAL Duckworth Attending Provider Bhavesh Guerrero DO Primary Care Provider Rolando Ceballos DO Primary Care Provider Dr. Bhavesh Guerrero Primary Care Provider Dr. Marisa Palm Attending Provider Dr. Rolando Ceballos Referring Provider Dr. Marisa Palm Referring Provider Dr. Marisa Palm Other Provider Lin MARTINS, Rolando F Primary Care Provider Yanganisafiona MARTINS Bhavesh Smith Primary Care Provider Lin MARTINS, [facility] Primary Care Provider Unav ailable Lin MARTINS, Dr. Marshall Primary Care Provider Lin MARTINS, Dr. Marshall Referring Provider Dr. Marisa Palm MD Attending Provider Bjorn Bhakta Attending Provider Bjorn Bhakta Referring Provider [phone] Bjorn Bhakta Other Provider Rosa VANEGAS, Dr. Ross Attending Provider Pancho VANEGAS, Dr. Collins Angel Attending Provider Dr. Collins Deleon MD, V Referring Provider Dr. Rolando Ceballos DO Attending Provider COLLINS DELEON Referring Unavailable ROLANDO CEBALLOS Primary Care Unavailable ROLANDO CEBALLOS Attending Unavailable COLLINS DELEON Referring Unavailable LIN, ROLANDO Primary Care Unavailable COLLINS DELEON Attending Unavailable Dr. Rolando Ceballos DO Primary Care Provider Dr. Rolando Ceballos DO Referring Provider Dr. Marisa Palm MD Attending Provider ROLANDO CEBALLOS Primary Care Unavailable ROLANDO CEBALLOS Attending Unavailable LIN, ROLANDO Primary Care Unavailable BJORN TEJADA Attending Unavailable LIN, ROLANDO Primary Care Unavailable BJORN TEJADA Attending Unavailable LIN, ROLANDO Primary Care Unavailable LORA THORNE Referring Unavailable LIN, ROLANDO Primary Care Unavailable BJORN TEJADA Attending Unavailable LIN, ROLANDO Primary Care Unavailable PETRILLA, ROLANDO Attending Unavailable PETRILLA, ROLANDO Primary Care Unavailable Petrilla, Rolando Primary Care Unavailable Tejada, Bjorn Referring Unavailable Tejada, Bjorn Attending Unavailable Petrilla, Rolando Primary Care Unavailable Tejada, Bjorn Attending Unavailable Tejada, Bjorn Referring Unavailable Petrilla, Rolando Primary Care Unavailable Tejada, Bjorn Attending Unavailable Tejada, Bjorn Referring Unavailable Robotham, Marisa Consulting Unavailable Robotham, Marisa Referring Unavailable Petrilla, Rolando Primary Care Unavailable Robotham, Marisa Attending Unavailable Petrilla, Rolando Primary Care Unavailable Petrilla, Rolando Referring Unavailable Petrilla, Rolando Attending Unavailable Petrilla, Rolando Primary Care Unavailable Tejada, Bjorn Referring Unavailable Tejada, Bjorn Attending Unavailable Petrilla, Rolando Primary Care Unavailable Sibilia, Collins V Referring Unavailable Sibilia, Collins V Attending Unavailable Petrilla, Rolando Primary Care Unavailable Assessment, Health Risk Referring Unavaila ble Assessment, Health Risk Attending Unavaila ble Robotham, Marisa Referring Unavailable Robotham, Marisa Attending Unavailable Petrilla, Rolando Primary Care Unavailable Tejada, Bjorn Consulting Unavailable Tejada, Bjorn Referring Unavailable Petrilla, Rolando Primary Care Unavailable Rosa, Sandstone Attending Unavailable Robotham, Marisa Attending Unavailable Petrilla, Rolando Primary Care Unavailable Petrilla, Rolando Primary Care Unavailable Petrilla, Rolando Referring Unavailable Petrilla, Rolando Attending Unavailable Petrilla, Rolando Referring Unavailable Petrilla, Rolando Attending Unavailable Petrilla, Rolando Primary Care Unavailable Petrilla, Rolando Primary Care Unavailable Sibilia, Collins V Attending Unavailable Sibilia, Collins V Referring Unavailable Robotham, Marisa Attending Unavailable Petrilla, Rolando Referring Unavailable Petrilla, Rolando Primary Care Unavailable Robotham, Marisa Attending Unavailable Petrilla, Rolando Referring Unavailable Petrilla, Rolando Primary Care Unavailable Robotham, Marisa Attending Unavailable Petrilla, Rolando Primary Care Unavailable Petrilla, Rolando Referring Unavailable Petrilla, Rolando Referring Unavailable Petrilla, Rolando Primary Care Unavailable Rosa, Cody Attending Unavailable Petrilla, Rolando Primary Care Unavailable Petrilla, Rolando Referring Unavailable Robotham, Marisa Attending Unavailable Robotham, Marisa Referring Unavailable Petrilla, Rolando Primary Care Unavailable Rosa, Cody Attending Unavailable Petrilla, Rolando Primary Care Unavailable Rosa, Cody Attending Unavailable Allergies Allergy Classification Reported Allergen(s) Allergy Type Date of Onset Reaction(s) Facility (2 sources) acetaminophen / oxyCODONE drug allergy 03-07-20 16 [facility] Work Phone: (2 sources) Latex rubber gloves drug allergy 03-07-20 16 [facility] Work Phone: (4 sources) Acetaminophen Drug Allergy 03-31-19 23 Itching [facility] (8 sources) Latex Allergy to substance 03-31-19 23 Itching [facility] (20 sources) oxyCODONE Drug Allergy 03-31-19 23 Itching [facility] (8 sources) Sulfonamides (Antibiotic) Propensity to adverse reactions 03-31-19 23 UNABLE TO TAKE WITH CROHNS DISEASE [facility] (8 sources) Triiodobenzoic Acids Propensity to adverse reactions 03-31-19 23 NAUSEA,DIAPHOR ESIS [facility] (20 sources) Gadolinium Drug Allergy 07-09-19 23 Dizziness [facility] (20 sources) Latex Propensity to adverse reactions 07-09-19 23 Itching [facility] (20 sources) Sulfonamides (Antibiotic) Drug Intolerance 07-09-19 23 Nausea Only [facility] (19 sources) Acetaminophen Drug Allergy 07-31-19 23 [facility] (1 source) Acetaminophen Drug Allergy 03-07-20 24 [facility] (1 source) Latex Drug allergy (disorder) 08-23-19 25 [facility] (1 source) oxyCODONE Drug Allergy 08-23-19 25 [facility] (1 source) Sulfonamides (Antibiotic) Drug allergy (disorder) 08-23-19 25 [facility] (1 source) Iodinated Contrast Media Drug allergy (disorder) 08-23-19 25 [facility] Medications Current Medications Medication Drug Class(es) Dates Sig (Normalized) Sig (Original) allopurinol 100 mg oral tablet (20 sources) Xanthine Oxidase Inhibitor Start: 08-22-2024 End: 08-22-2025 take 1 tablet by mouth twice daily allopurinol (Zyloprim) 100 MG tablet Take 1 tablet (100 mg) by mouth 2 times daily. 60 tablet 5 08/22/2024 08/22/2025 Active Start: 01-05-2024 End: 08-02-2024 take 1 tablet by mouth once daily Allopurinol 100 mg tablet Active 100 mg PO DAILY March 18, 2024 1:00am calcium carbonate 1250 mg oral tablet (20 sources) Start: 01-07-2018 take 1 tablet by mouth once daily Calcium Carbonate 500 MG tablet Active 500 mg PO DAILY January 07, 2018 12:00am calcium carbonat e 1500 (600 Ca) MG tablet Take by mouth. Active cholecalciferol 0.125 mg oral capsule (20 sources) Vitamin D Start: 04-25-2024 take 1 capsule by mouth once daily Cholecalciferol (Vitamin D3) 125 mcg (5,000 unit) capsule Active 125 ug PO daily April 25, 2024 1:00am cholecalciferol (D3-5) 5,000 Units tablet Active Cyanocobalamin-Liver Extract (1 source) Start: 03-27-2022 take 1 tablet by mouth once daily Cyanocobalamin-Liver Extract Active 1 TABLET PO DAILY March 27, 2022 1:00am Cyanocobalamin-Liver Extract (Vitamin V70-[id number]) Tablet (3 sources) Start: 03-27-2022 take 1 tablet by mouth once daily Cyanocobalamin-Liver Extract (Vitamin G61-Gihrd) Tablet Active 1 TABLET PO DAILY March 27, 2022 1:00am Start: 03-27-2022 take 1 tablet by victor hugo th once daily Cyanocobalamin-Liver Extract (Vitamin R03-[id number]) Tablet Active 1 TABLET PO DAILY March 27, 2022 12:00am diclofenac sodium 0.01 mg/mg topical gel (7 sources) Nonsteroidal Anti-inflammatory Drug Start: 03-26-2023 Diclofenac Sodium (Voltaren) 1 % gel Indications: Chronic left shoulder pain Apply 2 g topically 2 times daily. 150 g 1 03/26/2023 Active dicyclomine hydrochloride 20 mg oral tablet (2 sources) Anticholinergic Start: 03-01-2024 End: 03-09-2024 take 1 tablet by mouth four times daily before mealtime dicyclomine (Bentyl) 20 MG tablet Take 1 tablet (20 mg) by mouth 4 times daily (before meals and nightly) for 8 days. 30 tablet 03/01/2024 03/09/2024 Active folic acid 1 mg oral tablet (20 sources) Start: 05-16-2022 folic acid (Folvite) 1 MG tablet 05/16/2022 Active Start: 12-21-2020 End: 03-27-2022 take 1 tablet by mouth once daily Folic Acid 1 mg tablet Discontinued 0 .ROUTE .COMPLEX 90 July 12, 2021 3:01pm March 27, 2022 4:55pm TAKE 1 TABLET BY MOUTH ONCE DAILY glimepiride 2 mg oral tablet (5 sources) Sulfonylurea Start: 09-28-2024 End: 09-28-2025 take 1 tablet by mouth once daily at breakfast glimepiride (Amaryl) 2 MG tablet Take 1 tablet (2 mg) by mouth daily (with breakfast). 30 tablet 2 09/28/2024 09/28/2025 Active Start: 08-25-2024 End: 08-25-2025 take 1 tablet by mouth once daily at breakfast glimepiride (Amaryl) 1 MG tablet Take 1 tablet (1 mg) by mouth daily (with breakfast). 30 tablet 1 08/25/2024 09/28/2024 Discontinued Lactobac 2-Bifido 1-S. Therm (Vsl#3) 112.5 billion cell capsule (8 sources) Start: 12-21-2020 Lactobac 2-Bif johnna 1-S. Therm (Vsl#3) 112.5 billion cell capsule Active 1 NMA PO DAILY December 21, 2020 12:00am Start: 12-21-2020 Lactobac 2-Bif johnna 1-S. Therm (Vsl#3) 112.5 billion cell capsule Active 1 CAP PO DAILY December 21, 2020 12:00am Start: 12-21-2020 Lactobac 2-Bif johnna 1-S. Therm (Vsl#3) 112.5 billion cell capsule Active 1 CAP PO DAILY December 20, 2020 11:00pm LACTOBACILLUS PROBIOTIC PO (20 sources) LACTOBACILLUS CA OBIOTIC PO Take by mouth. Active LACTOBACILLUS CA OBIOTIC PO Take by mouth. 0 Active Multivitamin With Folic Acid (4 sources) Start: 12-26-2015 take 1 tablet by mouth once daily Multivitamin With Folic Acid Active 1 TABLET PO DAILY December 26, 2015 12:00am Start: 12-26-2015 take 1 tablet by victor hugo th once daily Multivitamin With Folic Acid Active 1 TABLET PO DAILY December 25, 2015 11:00pm Multivitamin With Folic Acid 1 TABLET tablet (4 sources) Start: 12-26-2015 take 1 tablet by mouth once daily Multivitamin With Folic Acid 1 TABLET tablet Active 1 {tbl} PO DAILY December 26, 2015 12:00am Nirmatrelvir&Ritona vir 300/100 (Paxlovid, 300/100,) 20 x 150 MG & 10 x 100MG tablet therapy pack (1 source) Start: 11-10-2023 End: 11-15-2023 take 3 tablets by mouth every twelve hours Nirmatrelvir&Riton avir 300/100 (Paxlovid, 300/100,) 20 x 150 MG & 10 x 100MG tablet therapy pack Take 3 tablets by mouth in the morning and 3 tablets in the evening. Do all this for 5 days. 30 tablet 11/10/2023 11/15/2023 Active omeprazole 40 mg delayed release oral capsule (20 sources) Proton Pump Inhibitor Start: 03-07-2024 take 1 capsule by mouth once daily before breakfast omeprazole (PriLOSEC) [address] capsule Take 40 mg by mouth every morning (before breakfast). 03/07/2024 Active potassium 99 mg extended release oral tablet (20 sources) Potassium 99 MG tablet Take by mouth. Active potassium gluconate 2.5 meq oral tablet (8 sources) Start: 01-07-2018 Potassium 99 M G tablet Active 550 mg PO DAILY January 07, 2018 12:00am Start: 01-07-2018 take 550 mg by mouth once jenelle y Potassium Active 550 MG PO DAILY January 07, 2018 12:00am predniSONE 20 mg oral tablet (1 source) Start: 03-01-2024 End: 03-04-2024 take 2 tablets by mouth once daily predniSONE (Deltasone) 20 MG tablet Take 2 tablets (40 mg) by mouth daily for 3 days. 6 tablet 03/01/2024 03/04/2024 Active therapeutic multivitamin-minerals (Theragran-M) tablet (20 sources) take 1 tablet by mouth once daily therapeutic multivitamin-minerals (Theragran-M) tablet Take 1 tablet by mouth daily. Active take 1 tablet by mouth once jenelle y therapeutic multivitamin-minerals (Theragran- M) tablet Take 1 tablet by mouth daily. 0 Active Tirzepatide-Weight Management (Zepbound) 2.5 MG/0.5ML solution auto-injector (7 sources) Start: 03-26-2023 inject 2.5 mg by subcutaneous injection every week Tirzepatide-Weight Management (Zepbound) 2.5 MG/0.5ML solution auto-injector Indications: Obesity (BMI 30-39.9) Inject 2.5 mg under the skin 1 (one) time per week. 2 mL 1 03/26/2023 Active traZODone hydrochloride 50 mg oral tablet (20 sources) Serotonin Reuptake Inhibitor Start: 01-05-2024 End: 06-16-2025 take 1 tablet by mouth once daily as needed for sleep traZODone (Desyrel) 50 MG tablet Indications: Insomnia, unspecified type Take 1 tablet (50 mg) by mouth Nightly as needed for sleep. 30 tablet 3 06/16/2024 06/16/2025 Active triamcinolone acetonide 5 mg/ml topical cream (20 sources) Corticosteroid Start: 01-12-2023 Triamcinolone Acetonide 0.5 % cream Active 1 NMA TOPICAL NEEDED as needed for EXCEMA January 12, 2023 12:00am Start: 07-08-2022 End: 01-05-2024 triamcinolone (Kenalog) 0.5 % cream Indications: Eczema, unspecified type Apply topically 2 times daily. 30 g 2 01/05/2024 Active vitamin B12 (20 sources) Vitamin B12 Cyanocobalamin ( VITAMIN B 12 PO) Take by mouth. Active Cyanocobalamin ( VITAMIN B 12 PO) Take by mouth. 0 Active Completed/Discontinued Medications Medication Drug Class(es) Dates Sig (Normalized) Sig (Original) acetaminophen 325 mg / HYDROcodone bitartrate 5 mg oral tablet (9 sources) Opioid Agonist Start: 03-25-2024 End: 04-08-2024 Hydrocodone-Acetami nophen 5-325 mg tablet Discontinued 1 {tbl} PO EVERY 6 HOURS as needed for pain 10 March 25, 2024 April 08, 2024 10:36am Start: 01-23-2023 End: 04-27-2023 Hydrocodone-Acetaminophen 5- 325 mg tablet Discontinued 1 {tbl} PO EVERY 6 HOURS as needed for pain 5 January 23, 2023 April 27, 2023 4:12pm Start: 01-23-2023 take 1 tablet by victor hugo th every six hours Hydrocodone-Acetaminophen Active 1 TABLE T PO EVERY 6 HOURS 5 January 23, 2023 acetaminophen 325 mg / oxyCODONE hydrochloride 5 mg oral tablet (8 sources) Opioid Agonist Start: 01-16-2016 End: 10-13-2017 Oxycodone-Acetaminophen 1 TABLET tablet Discontinued 2 {tbl} PO EVERY 4 HOURS NEEDED as needed for Moderate-Severe pain January 16, 2016 12:00am October 13, 2017 4:57pm Start: 01-16-2016 End: 10-13-2017 take 2 tablets by mouth every four hours as needed Oxycodone-Acetaminophen Discontinued 2 TABLET PO EVERY 4 HOURS NEEDED January 16, 2016 12:00am October 13, 2017 4:57pm aspirin 81 mg chewable tablet (2 sources) Platelet Aggregation Inhibitor, Nonsteroidal Anti-inflammatory Drug Start: 08-07-2024 End: 08-07-2024 take 324 mg by mouth once 324 mg, Oral, Once, On 08/07/24 at 1745, For 1 dose benzonatate 200 mg oral capsule (20 sources) Non-narcotic Antitussive Start: 04-30-2022 End: 05-15-2022 take 1 capsule by mouth three times daily as needed for cough Benzonatate 200 mg capsule Discontinued 200 mg PO THREE TIMES A DAY as needed for cough April 30, 2022 1:00am May 15, 2022 6:25pm Start: 12-27-2017 End: 12-21-2020 take 1 capsule by mouth at bedtime Benzonatate 200 MG capsule Discontinued 200 mg PO AT BEDTIME January 07, 2018 11:07am December 21, 2020 3:45pm Cyanocobalamin-Liver Extract Tablet (4 sources) Start: 03-27-2022 End: 04-28-2024 Cyanocobalamin-Liver Extract Tablet Discontinued 1 {tbl} PO DAILY March 27, 2022 1:00am April 28, 2024 3:09pm diphenhydrAMINE hydrochloride 25 mg oral tablet (4 sources) Histamine-1 Receptor Antagonist Start: 04-12-2024 End: 08-02-2024 take 2 tablets by mouth once, then take 1 tablet by mouth every hour diphenhydrAMINE (BENADryl) 25 MG tablet Take 2 tablets (50 mg) by mouth Once for 1 dose. 1 hour prior to procedure 2 tablet 04/12/2024 08/02/2024 Discontinued esomeprazole 20 mg delayed release oral capsule (15 sources) Proton Pump Inhibitor Start: 07-08-2022 End: 03-07-2024 take 1 capsule by mouth once daily Esomeprazole Magnesium 20 mg capsule,delayed release(DR/EC) Discontinued 20 mg PO DAILY July 30, 2022 12:00am March 07, 2024 4:25pm ferrous sulfate 325 mg oral tablet (20 sources) End: 04-08-2024 ferrous sulfate 325 (65 Fe) MG tablet Take 325 mg by mouth. 04/08/2024 Discontinued ibuprofen 600 mg oral tablet (8 sources) Nonsteroidal Anti-inflammato ry Drug Start: 01-16-2016 End: 10-13-2017 take 1 tablet by mouth four times daily as needed for pain Ibuprofen 600 MG tablet Discontinued 600 mg PO 4 TIMES DAILY as needed for mild to moderate pain January 16, 2016 7:39am October 13, 2017 4:57pm FERROUS SULFATE TABS (2 sources) Start: 03-07-2016 IRON TABS FERROUS SULFATE TABS [id number] Yevgeniy PUENTES iron carbonyl 45 mg oral tablet (8 sources) Start: 01-10-2016 End: 04-25-2024 Iron, Carbonyl 45 MG capsule Discontinued 65 mg PO DAILY WITH MEALS January 10, 2016 12:00am April 25, 2024 12:18pm Start: 01-10-2016 take 65 mg by mouth once daily at mealtime Iron, Carbonyl Active 65 MG PO DAILY WITH MEALS January 10, 2016 12:00am metoprolol tartrate 25 mg oral tablet (3 sources) beta-Adrenergic Tucker Start: 04-27-2024 End: 08-02-2024 take 2 tablets by mouth once, then take 2 tablets by mouth every hour metoprolol tartrate (Lopressor) 25 MG tablet 50mg oral one time tonight 04/27/24 and then oral 50 mg 1 hour prior to procedure 04/28/2024 4 tablet 04/27/2024 08/02/2024 Discontinued MULTIPLE VITAMINS-MINERALS (1 source) Start: 03-07-2016 MULTIPLE VITAMINS/WOMENS TABS MULTIPLE VITAMINS-MINERALS [id number] Yevgeniy PUENTES MULTIPLE VITAMINS-MINERALS (1 source) Start: 03-07-2016 MULTIPLE VITAMINS/WOMENS TABS MULTIPLE VITAMINS-MINERALS [id number] Yevgeniy PUENTES Nirmatremartellir-Tank navir (8 sources) Start: 09-09-2021 End: 10-06-2021 Nirmatrelvir-Riton avir (Paxlovid (Eua)) 300 mg (150 mg x 2)-100 mg tablet Discontinued 0 PO .COMPLEX September 09, 2021 12:00am October 06, 2021 2:02pm take TWO 150 mg tablets of nirmatrelvir with ONE 100 mg tablet of ritonavir twice daily for 5 days PO Start: 09-09-2021 End: 10-06-2021 Nirmatrelvir-Ritonavir (Paxl ovid (Eua)) 300 mg (150 mg x 2)-100 mg tablet Discontinued 0 PO .COMPLEX September 08, 2021 11:00pm October 06, 2021 1:02pm take TWO 150 mg tablets of nirmatrelvir with ONE 100 mg tablet of ritonavir twice daily for 5 days PO phentermine hydrochloride 30 mg oral capsule (8 sources) Sympathomimetic Amine Anorectic Start: 01-22-2022 End: 07-30-2022 take 1 capsule by mouth once daily 2 hour(s) after breakfast Phentermine 30 mg capsule Discontinued 30 mg PO DAILY January 22, 2022 12:00am July 30, 2022 11:32am must administer 2 hours after breakfast sulfacetamide sodium 100 mg/ml ophthalmic solution (2 sources) Sulfonamide Antibacterial Start: 11-18-2016 End: 11-25-2016 take 2 drop(s) into the eye(s) every three hours BLEPH-10 10 % SOLN 2 drops to right eye every 3 hours while awake SULFACETAMIDE SODIUM [id number] Reggie PUENTES Start: 11-18-2016 End: 11-25-2016 take 2 drop(s) into the eye(s) every three hours BLEPH-10 10 % SOLN 2 drops to right eye every 3 hours while awake SULFACETAMIDE SODIUM [id number] Reggie PUENTES sulfamethoxazole 800 mg / trimethoprim 160 mg oral tablet (2 sources) Dihydrofolate Reductase Inhibitor Antibacterial, Sulfonamide Antimicrobial Start: 01-05-2024 End: 01-12-2024 take 1 tablet by mouth twice daily sulfamethoxazole-trimethoprim (Bactrim DS) 800-160 MG tablet Indications: Urinary frequency Take 1 tablet by mouth 2 times daily for 7 days. 14 tablet 01/05/2024 01/12/2024 sulfaSALAzine 500 mg oral tablet (20 sources) Aminosalicylate Start: 03-27-2022 End: 11-10-2023 sulfaSALAzine (Azulfidine) 5 00 MG tablet 05/16/2022 11/10/2023 Discontinued (Therapy completed) Start: 08-23-2021 End: 03-18-2024 take 1 tablet by mouth three times daily Sulfasalazine 500 mg tablet Discontinued 500 mg PO THREE TIMES A DAY March 27, 2022 4:55pm March 18, 2024 9:12am Start: 12-21-2020 End: 03-27-2021 take 1 tablet by mouth three times daily at mealtime Sulfasalazine 500 mg tablet Discontinued 0.5 g PO THREE TIMES A DAY December 21, 2020 12:00am March 27, 2021 8:51am give with food (meal/snack) Start: 12-21-2020 End: 08-23-2021 take 0.5 g by mouth three times daily Sulfasalazine 500 mg tablet,delayed release (DR/EC) Discontinued 0.5 g PO THREE TIMES A DAY December 21, 2020 12:00am August 23, 2021 5:10pm Start: 12-21-2020 End: 03-27-2021 take 0.5 g by mouth three times daily at mealtime Sulfasalazine Discontinued 0.5 GM PO THREE TIMES A DAY December 21, 2020 12:00am March 27, 2021 8:51am give with food (meal/snack) Start: 12-21-2020 End: 08-23-2021 take 0.5 g by mouth three times daily Sulfasalazine Discontinued 0.5 GM PO THREE TIMES A DAY December 21, 2020 12:00am August 23, 2021 5:10pm Sulferzyme (8 sources) Start: 01-07-2018 End: 12-21-2020 take 1.8 g by mouth once daily Sulferzyme Discontinued 1.8 g PO DAILY January 07, 2018 12:00am December 21, 2020 3:46pm Start: 01-07-2018 End: 12-21-2020 take 1.8 g by mouth once daily Sulferzyme Discontinued 1.8 GM PO DAILY January 07, 2018 12:00am December 21, 2020 3:46pm Start: 01-07-2018 End: 12-21-2020 take 1.8 g by mouth once daily Sulferzyme Discontinued 1.8 GM PO DAILY January 06, 2018 11:00pm December 21, 2020 2:46pm tobramycin 3 mg/ml ophthalmic solution (7 sources) Aminoglycoside Antibacterial Start: 04-30-2022 End: 07-30-2022 take 0.3 drop(s) into the eye(s) every two hours Tobramycin 0.3 % drops Discontinued 1 NMA OPHTHALMIC Q2H 5 April 30, 2022 1:00am July 30, 2022 11:32am to right eye while awake for 5 days Problems Active Problems Problem Classification Problem Date Documented Da te Episodic/Chronic Anxiety disorders (4 sources) Anxiety; Translations: [Anxiety disorder, unspecified] 04-25-2024 Chronic Comment on above: MILD Deficiency and other anemia (4 sources) Anemia; Translations: [Anemia, unspecified] 04-25-2024 Episodic Comment on above: ON IRON SUPPLEMENT C URRENTLY Diabetes mellitus without complication (16 sources) Diabetes mellitus; Translations: [Type 2 diabetes mellitus without complications] Onset: 5 04-25-2024 Chronic Comment on above: PREDIABETIC Diabetes mellitus without complication (6 sources) Hyperglycemia; Translations: [Hyperglycemia, unspecified] Onset: 5 08-07-2024 Episodic Esophageal disorders (20 sources) Gastroesophageal reflux disease without esophagitis; Translations: [Gastro-esophageal reflux disease without esophagitis] Onset: 4 11-18-2022 Chronic Essential hypertension (15 sources) Labile essential hypertension; Translations: [Essential (primary) hypertension] Onset: 5 08-02-2024 Chronic Gout and other crystal arthropathies (15 sources) Gouty arthritis of the ankle and/or foot; Translations: [Idiopathic chronic gout, unspecified ankle and foot, without tophus (tophi)] Onset: 4 08-02-2024 Chronic Immunizations and screening for infectious disease (8 sources) Patient encounter status; Translations: [Encounter for screening for COVID-19] 09-07-2021 Episodic Inflammation, infection of eye (20 sources) Acute conjunctivitis; Translations: [Blepharitis of right lower eyelid] Onset: 7 11-18-2016 Episodic Joint disorders and dislocations; trauma-related (9 sources) Derangement of right knee; Translations: [Unspecified internal derangement of right knee] 05-19-2022 Chronic Miscellaneous mental health disorders (1 source) Primary insomnia; Translations: [Primary insomnia] 04-08-2024 Chronic Nonspecific chest pain (13 sources) Chest pain; Translations: [Chest pain, unspecified] Onset: 04-08-2024 Episodic Nutritional deficiencies (4 sources) Serum iron low; Translations: [Iron deficiency] 04-25-2024 Episodic Osteoarthritis (1 source) Unilateral primary osteoarthritis, right knee; Translations: [Osteoarthrosis, unspecified whether generalized or localized, lower leg] 05-30-2022 Chronic Other aftercare (7 sources) History of repair of umbilical hernia; Translations: [Encounter for follow-up examination after completed treatment for conditions other than malignant neoplasm] 04-08-2024 Episodic Other and unspecified benign neoplasm (5 sources) Lipoma of back; Translations: [Benign lipomatous neoplasm of skin and subcutaneous tissue of trunk] 12-29-2022 Episodic Other and unspecified benign neoplasm (1 source) Benign lipomatous neoplasm of skin and subcutaneous tissue of trunk; Translations: [Lipoma of other specified sites] 12-29-2022 Episodic Other circulatory disease (1 source) Elevated blood-pressure reading without diagnosis of hypertension; Translations: [Elevated blood-pressure reading, without diagnosis of hypertension] 04-08-2024 Episodic Other endocrine disorders (4 sources) Adrenal mass; Translations: [Disorder of adrenal gland, unspecified] 04-25-2024 Chronic Other gastrointestinal disorders (1 source) H/O: gallstones; Translations: [Personal history of other diseases of the digestive system] 08-09-2024 Episodic Other injuries and conditions due to external causes (2 sources) Injury of knee; Translations: [Unspecified injury of right lower leg, initial encounter] 05-19-2022 Episodic Other injuries and conditions due to external causes (2 sources) Unspecified injury of right lower leg, initial encounter; Translations: [Knee, leg, ankle, and foot injury] 05-19-2022 Episodic Other injuries and conditions due to external causes (1 source) Injury of right knee; Translations: [Unspecified injury of right lower leg, initial encounter] 05-19-2022 Episodic Other liver diseases (8 sources) Steatosis of liver; Translations: [Fatty (change of) liver, not elsewhere classified] 01-22-2022 Chronic Other liver diseases (1 source) Fatty (change of) liver, not elsewhere classified; Translations: [Other chronic nonalcoholic liver disease] Chronic Other lower respiratory disease (9 sources) Cough; Translations: [[id number] syndrome manifesting as chronic cough] 04-30-2022 Episodic Other lower respiratory disease (3 sources) Dyspnea; Translations: [Dyspnea, unspecified] 01-05-2024 Episodic Other lower respiratory disease (4 sources) Dyspnea on exertion; Translations: [Shortness of breath] 04-25-2024 Episodic Comment on above: WITH [address] AIRS DUE TO VOCAL DYSKENSIA Other non-traumatic joint disorders (1 source) Pain in right knee; Translations: [Pain in joint, lower leg] 05-30-2022 Episodic Other non-traumatic joint disorders (2 sources) Chronic pain of left upper limb; Translations: [Pain in left shoulder] 03-26-2023 Episodic Other non-traumatic joint disorders (4 sources) Pain in left shoulder; Translations: [Left shoulder pain] 04-27-2023 Episodic Other nutritional; endocrine; and metabolic disorders (20 sources) Body mass index 30+ - obesity; Translations: [Body mass index (BMI) 33.0-33.9, adult] Onset: 4 01-11-2021 Chronic Other nutritional; endocrine; and metabolic disorders (4 sources) Obesity; Translations: [Obesity, unspecified] 01-22-2022 Chronic Other nutritional; endocrine; and metabolic disorders (2 sources) Obesity, unspecified; Translations: [Obesity, unspecified] Chronic Other nutritional; endocrine; and metabolic disorders (3 sources) Hyperuricemia without signs of inflammatory arthritis and tophaceous disease; Translations: [Hyperuricemia without signs of inflammatory arthritis and tophaceous disease] Onset: Episodic Other upper respiratory disease (20 sources) Allergic rhinitis; Translations: [Allergic rhinitis, unspecified] Onset: 7 01-05-2022 Chronic Other upper respiratory disease (8 sources) Respiratory tract congestion; Translations: [Nasal congestion] 03-28-2021 Episodic Other upper respiratory disease (2 sources) Vocal cord dysfunction; Translations: [Other diseases of vocal cords] 07-25-2024 Episodic Other upper respiratory infections (20 sources) Pharyngitis; Translations: [Acute sinusitis] Onset: 6 03-07-2016 Episodic Regional enteritis and ulcerative colitis (20 sources) Ulcerative colitis; Translations: [Ulcerative colitis, unspecified, without complications] Onset: 7 Chronic Residual codes; unclassified (3 sources) Hypersomnia; Translations: [Hypersomnia, unspecified] 01-05-2024 Chronic Residual codes; unclassified (15 sources) Obstructive sleep apnea syndrome; Translations: [Obstructive sleep apnea (adult) (pediatric)] Onset: 5 08-02-2024 Chronic Residual codes; unclassified (3 sources) Hypersomnia, unspecified; Translations: [Hypersomnia, unspecified] Onset: 4 Chronic Residual codes; unclassified (1 source) Obstructive sleep apnea (adult) (pediatric); Translations: [Obstructive sleep apnea (adult) (pediatric)] Onset: 5 Chronic Residual codes; unclassified (4 sources) H/O: neoplasm; Translations: [Other specified postprocedural states] 02-05-2023 Episodic Comment on above: Right upper back fib rolipoma Sprains and strains (13 sources) Sprain of knee; Translations: [Sprain of unspecified site of right knee, initial encounter] 05-19-2022 Episodic Viral infection (9 sources) Disease caused by 2019-nCoV; Translations: [COVID-19] 01-11-2021 Episodic Viral infection (2 sources) COVID-19; Translations: [COVID-19] Onset: 4 Past or Other Problems Problem Classification Problem Date Documented Date Episodic/Chronic Abdominal hernia (5 sources) Umbilical hernia; Translations: [Umbilical hernia without obstruction or gangrene] Onset: 04-19-2024 04-25-2024 Episodic Abdominal pain (9 sources) Periumbilical pain; Translations: [Epigastric pain] Onset: 03-01-2024 03-01-2024 Episodic Allergic reactions (20 sources) Environmental allergy; Translations: [Other allergy status, other than to drugs and biological substances] Onset: 05-26-2016 Resolved: 01-05-2024 01-05-2022 Episodic Biliary tract disease (20 sources) Biliary calculus; Translations: [Calculus of gallbladder without cholecystitis without obstruction] Onset: 05-26-2016 01-05-2022 Episodic Calculus of urinary tract (15 sources) Kidney stone; Translations: [Calculus of kidney] Onset: 03-23-2019 08-02-2024 Episodic Genitourinary symptoms and ill-defined conditions (6 sources) Increased frequency of urination; Translations: [Frequency of micturition] Onset: 11-18-2016 11-18-2016 Episodic Other circulatory disease (2 sources) Elevated blood-pressure reading, without diagnosis of hypertension; Translations: [Elevated blood-pressure reading, without diagnosis of hypertension] Onset: 04-08-2024 Episodic Other connective tissue disease (20 sources) Non-traumatic partial tear of left rotator cuff; Translations: [Incomplete rotator cuff tear or rupture of left shoulder, not specified as traumatic] Onset: 05-19-2023 05-19-2023 Episodic Other infections; including parasitic (20 sources) Personal history of other infectious and parasitic diseases; Translations: [History of COVID-19] Onset: 01-11-2021 Resolved: 08-02-2024 01-05-2022 Episodic Other lower respiratory disease (2 sources) Dyspnea, unspecified; Translations: [Dyspnea, unspecified] Onset: 01-05-2024 Episodic Other nutritional; endocrine; and metabolic disorders (20 sources) Hyperuricemia; Translations: [Hyperuricemia without signs of inflammatory arthritis and tophaceous disease] Onset: 01-05-2024 01-05-2024 Episodic Other screening for suspected conditions (not mental disorders or infectious disease) (16 sources) Electrocardiogram abnormal; Translations: [Abnormal electrocardiogram [ECG] [EKG]] Onset: 04-08-2024 04-08-2024 Episodic Residual codes; unclassified (20 sources) Family history of diabetes mellitus; Translations: [Family history of diabetes mellitus] Onset: 05-26-2016 01-05-2022 Episodic Residual codes; unclassified (20 sources) Insomnia; Translations: [Insomnia, unspecified] Onset: 01-05-2024 Resolved: 08-02-2024 01-05-2024 Episodic Residual codes; unclassified (2 sources) Insomnia, unspecified; Translations: [Insomnia, unspecified] Onset: 01-05-2024 Episodic Unclassified (4 sources) lipoma removal 10-20-2021 Urinary tract infections (2 sources) Cystitis; Translations: [Cystitis, unspecified without hematuria] Onset: 11-18-2016 11-18-2016 Episodic Results Test Name Value Interpretation Reference Range Facility 36on 08-29-2024 36 Spoke with patient a nd advised, patient voiced understanding. Patient is already scheduled for next available 11/02/24 4:40PM. [facility] 36on 08-25-2024 36 Pt was also left a message to return call to the office if she has any questions. [facility] 36 Name of caller: Elvis claudio Contact phone number: [phone] Relationship to Patient: patient Provider: Dr Ceballos Practice: [facility] Chief Complaint/Reason for Call: Patient requesting a callback to advise if her lab results and US images were received. Thank you Best time of day caller can be reached: any Patient advised that office/PCP has 24-48 business hours to return their call: Yes [facility] 36on 08-23-2024 36 Pt scheduled [facility] 36 Noted [facility] 36 Name of caller: Elvis claudio Contact phone number: [phone] Relationship to Patient: patient Provider: Dr. Ceballos Practice: [facility] Chief Complaint/Reason for Call: The patient wanted the office to know she was able to get an appointment that accomodates her work schedule which is 11/02/2024 440 pm. Best time of day caller can be reached: Any Patient advised that office/PCP has 24-48 business hours to return their call: No [facility] 36 Reference 08/23/24 Mychart Message Name of caller: Amaris Glory Contact phone number: [phone] Relationship to Patient: Patient Provider: Rolando Ceballos Practice: [facility] Chief Complaint/Reason for Call: Patient states she re-faxed Allopurinol labs from [facility] again? Did you receive? (Not in Media Tab as of this writing). If not, please call hospital direct to have re-faxed. Patient needs 6 week follow-up on/around 10/04/24. Patient was offered numerous openings end of September/into October but states she must have early Tu morning; does not want to wait and wants an early morning appointment. Per office, there is nowhere to schedule her at this time except what is in system. Patient refused to book and be wait-listed. Please advise how to schedule. Best time of day caller can be reached: any Patient advised that office/PCP has 24-48 business hours to return their call: Yes Normal [facility] Glucoseon 08-22-2024 Glucose [Mass/Vol] 162 mg/dL High 70-99 [facility] Comment on above: Performed By: #### L 501.9985, L501.0100 ####[facility] [id number] [place], [address] Hemoglobin A1con 08-22-2024 HbA1c (Bld) [Mass fraction] 8.8 % High <=5.6 [facility] Comment on above: Result Comment: Norm al < 5.7 % Prediabetic 5.7 - 6.4 % Diabetic >or= 6.5 % Please note range changes. Performed By: #### L 501.9985, L501.0100 ####[facility] [id number] [facility] [place], [address] Hemoglobin A1c percentageOrd ered By: Rolando Ceballos on 08-22-2024 HbA1c (Bld) [Mass fraction] 8.8 % High <5.7 [facility] Comment on above: Normal < 5.7 % Predi abetic 5.7 - 6.4 % Diabetic >or= 6.5 % Please note range changes. Serum glucose measurement (m ass/volume)Ordered By: Rolando Ceballos on 08-22-2024 Glucose [Mass/Vol] 162 mg/dL High 70-99 [facility] Surgery Visit Reporton 08-22 Surgery Visit Report [facility] [address] [place] [address] OFFICE VISIT Date of Service: 08/22/24 MR#: [id number] Acct: [id number] Name: JEN HOLDER Rep #: [id number] : 1965 Provider: Dr. Marisa schilling MD Age/Sex: 59/F Location: [facility] Status: Signed Intake Vital Signs 05/04/24 15:06 08/22/24 15:06 Height 5 ft 6 in 5 ft 6 in Weight: 254 lb BMI 41.0 BP 137/99 H Blood Pressure Location Rt brachial Position Sitting Respiration 17 Pulse 99 Pulse Source Monitor Pulse Oximetry (%) 97 Oxygen Delivery Method room air Intake Visit Reasons: GALLBLADDER Chief Complaint: gallbladder/gallstone Allergies latex Allergy (Verified 08/22/24 15:07) Itching oxycodone (From Percocet) Allergy (Verified 08/22/24 15:07) Itching Iodinated Contrast Media (Iodinated Contrast- Oral and IV Dye) Adverse Reaction (Verified 08/22/24 15:07) NAUSEA,DIAPHORESIS Sulfa (Sulfonamide Antibiotics) Adverse Reaction (Verified 08/22/24 15:07) UNABLE TO TAKE WITH CROHNS DISEASE Medications ???Medication ???Instructions ???Recorded ???Confirmed ???Type multivitamin with folic acid 400 1 tab PO DAILY 12/26/15 08/22/24 H istory mcg tablet calcium carbonate 500 mg PO DAILY 01/07/18 08/22/24 History potassium 99 mg tablet 550 mg PO DAILY 01/07/18 08/22/24 History Lactobac no.2-Bifidobac no.1-S. 1 cap PO DAILY #30 caps 12/21/20 0 08/22/24 Rx thermo 112.5 billion cell capsule (VSL#3) folic acid 1 mg tablet 1 mg PO DAILY 03/27/22 08/22/24 Hi story triamcinolone acetonide 0.5 % 1 applic topical PRN PRN EXCEMA 08/22/24 History topical cream omeprazole 40 mg capsule,delayed 40 mg PO QDAY #30 caps 03/07/24 Rx release allopurinol 100 mg tablet 100 mg PO DAILY 03/18/24 08/22/24 History trazodone 50 mg tablet 50 mg PO QHS 03/18/24 08/22/24 His tory cholecalciferol (vitamin D3) 125 125 mcg PO QDAY 04/25/24 08/22/24 History mcg (5,000 unit) capsule PFSH Medical History Insomnia Nonspecific chest pain Abnormal EKG BMI 38.0-38.9,adult Adrenal nodule GERD (gastroesophageal reflux disease) Umbilical hernia Gout Low iron History of hiatal hernia Left shoulder pain Lipoma of back COVID-19 long hauler manifesting chronic cough Conjunctivitis, right eye Blepharitis of right lower eyelid Anxiety Diabetes Fatty liver Back pain Injury of back Migraine headache Hx of ulcerative colitis Heartburn Shortness of breath on exertion Leg cramps Anemia Arthritis Surgical History S/P umbilical hernia repair, follow-up exam S/P excision of lipoma Hx of colonoscopy Hx of cystoscopy History of sinus surgery History of ankle surgery H/O: hysterectomy Family History Mother Diabetes Thyroid disorder Father Colon cancer Heart disease Hypertension CVA (cerebral vascular accident) Afib Other Colitis Ulcerative colitis Social History Smoking Status: Former smoker alcohol intake: never HPI HPI HPI: 59-year-old female presents due to right upper quadrant pain and gallstones. Patient went to the ER on August 07 at [facility] her AST and ALT were slightly elevated at that time at 40 and 35. Patient states her right upper quadrant pain currently is about 5/10 she did have some macaroni salad earlier today she has had this pain for about 2 hours currently. Patient has had a previous ultrasound showed a gallstone at the neck of the gallbladder no pericholecystic fluid or wall thickening and normal common bile duct. ROS General General: Yes fatigue; No weight change, appetite, colon cancer or breast cancer HEENT HEENT: No difficulty swallowing, eye injury, eye surgery, swollen glands or hoarseness Endo Endocrine: No thyroid disease, diabetes mellitus, thyroid cancer, Hair loss, heat intolerance or cold intolerance Skin Skin: Yes rash; No changing moles Musc Musculoskeletal: Yes gout; No back problems, arthritis, rheumatoid arthritis or joint pain Cardio Cardiovascular: No murmur, pacemaker, heart disease, atrial fibrillation, high blood pressure, heart attack, heart stent, palpitations, shortness of breath with exertion or chest pain Psych Psychiatric: No depression, anxiety or hearing voices Resp Respiratory: No shortness of breath, No sleep apnea, Yes cough, No COPD, No asthma, No emphysema and No wheezing Gastro Gastrointestinal: Yes abdominal pain, Yes nausea or vomiting, Yes diarrhea, No constipation, No blood in stool, Yes acid reflux, No hemorrhoids, Yes ulcers, Yes gallbladder prob (more content not included)... Normal [facility] Serum or plasma uric acid me asurement (mass/volume)Ordered By: Rolando Ceballos on 08-20-2024 Urate [Mass/Vol] 5.3 mg/dL 2.6-6.0 [facility] Comment on above: The drugs N-Acetylcy steine and Metamizole may falsely depress this assay. Uric Acidon 08-20-2024 URIC 5.3 mg/dL Normal 2.6-6.0 [facility] Comment on above: Result Comment: The drugs N-Acetylcysteine and Metamizole may falsely depress this assay. Performed By: #### L 501.1400 ####[facility] [id number] [place], [address] Abdomen Limitedon 08-12-2024 Abdomen [address] [facility] Imaging Services [address] [place] [address] Abdomen Limited MR#: [id number] Acct: [id number] Name: JEN HOLDER Rep #: [id number] : 1965 F 59 From: Cabrera barroso MD PCP: Dr. Rolando Ceballos, Status: REG CLI Study: Abdomen Limited Date of Exam: 08/12/24 Exam# [id number] Ordering Dr: Rolando Ceballos DO PROCEDURE: ABDOMEN LIMITED N/A REASON FOR EXAM: CHEST PAIN, HX OF GALLSTONES COMPARISON: Prior ultrasound dated August 06, 2021. FINDINGS: Liver: Diffusely echogenic suggesting fatty infiltration. Hepatomegaly. It measures 18.9 cm. Gallbladder: There is a 2 cm x 2.3 cm x 1.9 cm solitary gallstone in the neck of the gallbladder. The gallbladder wall measures 3 mm. Common bile duct: Normal measuring 4 mm. . Pancreas: Normal Other: Normal right kidney. US/Abdomen Limited IMPRESSION: Solitary gallstone measuring 2 cm x 2.3 cm 1.9 cm in the neck of the gallbladder. Hepatomegaly and diffuse fatty infiltration of the liver. Reading Location: [facility] CC: Dr. Rolando Ceballos DO Maternity Floor Supervisor: Signed Normal [facility] No Panel InformationOrdered By: Laquita Foley on 08-08-2024 P Sarah 41 degrees [employer] Work Phone: CA Interval 148 ms [employer] Work Phone: QRS Sarah -28 degrees Stroz Friedberg Work Phone: QRSD Interval 96 ms [employer] Work Phone: QT Interval 378 ms Stroz Friedberg Work Phone: QTC Interval 509 ms Stroz Friedberg Work Phone: T Wave Sarah 23 degrees Stroz Friedberg Work Phone: [employer] Work Phone: No Panel Informationon 08-08 Laquita Foley DO - 08/08/2024 IMPRESSION: Sinus tachycardia Borderline left axis deviation Abnormal R-wave progression, late transition Borderline repolarization abnormality Borderline prolonged QT interval Electronically Signed On 08-08-2024 03:24:35 EDT by Laquita Foley St[employer] Friedberg Vital signsOrdered By: Rashida Foley on 08-08-2024 Heart rate 108 /min bpm [employer] Work Phone: BASIC METABOLIC PANELon 07-21 Anion gap [Moles/Vol] 10 mmol/L Normal 3-13 [facility] Comment on above: Performed By: #### L AB15, LAB20, LAB99, [id number] ####Center Mgr: JORGE STALLWORTH ([id number])[facility] TROYIrene BORRERORADHAN (SBHLAB)[address] Calcium [Mass/Vol] 8.8 mg/dL Normal 8.4-10.2 [facility] Comment on above: Performed By: #### L AB15, LAB20, LAB99, [id number] ####Center Mgr: JORGE STALLWORTH ([id number])[facility] TROYA BARBRADHAN (SBHLAB)[address] Chloride [Moles/Vol] 108 mmol/L High 98-107 [facility] Comment on above: Performed By: #### L AB15, LAB20, LAB99, [id number] ####Center Mgr: JORGE STALLWORTH ([id number])[facility] TROYIrene BORRERORADHAN (SBHLAB)[address] CO2 [Moles/Vol] 22 mmol/L Normal 22-29 [facility] Comment on above: Performed By: #### L AB15, LAB20, LAB99, [id number] ####Center Mgr: JORGE STALLWORTH ([id number])[facility] TROYIrene BORREROSNEHAL (SBHLAB)[address] Creatinine [Mass/Vol] 0.73 mg/dL Normal 0.57-1.11 [facility] Comment on above: Performed By: #### L AB15, LAB20, LAB99, [id number] ####Center Mgr: JORGE STALLWORTH ([id number])[facility] TROYA ADAIRRADHAN (SBHLAB)[address] GLOMERULAR FILTRATION RATE ML/MIN/1.73 SQ M.PREDICTED >90.0 Normal >60.0 [facility] Comment on above: Result Comment: Calc ulation based on the Chronic Kidney Disease Epidemiology Collaboration (CKD-EPI) equation refit without adjustment for race Performed By: #### L AB15, LAB20, LAB99, [id number] ####Center Mgr: JORGE STALLWORTH ([id number])[facility] (SBHLAB)[address] Glucose [Mass/Vol] 215 mg/dL High 74-100 [facility] Comment on above: Performed By: #### L AB15, LAB20, LAB99, [id number] ####Center Mgr: JORGE STALLWORTH ([id number])[facility] (SBHLAB)[address] Potassium [Moles/Vol] 3.8 mmol/L Normal 3.5-5.1 [facility] Comment on above: Result Comment: [facility] potassium values may be up to 0.5 mmol/L lower than serum values. Performed By: #### L AB15, LAB20, LAB99, [id number] ####Center Mgr: JORGE STALLWORTH ([id number])[facility] (SBHLAB)[address] [place] [address] Sodium [Moles/Vol] 140 mmol/L Normal 136-145 [facility] Comment on above: Performed By: #### L AB15, LAB20, LAB99, [id number] ####Center Mgr: JORGE STALLWORTH ([id number])[facility] (HLAB)[address] [place] [address] Urea nitrogen [Mass/Vol] 21 mg/dL Normal 9-23 [facility] Comment on above: Performed By: #### L AB15, LAB20, LAB99, [id number] ####Center Mgr: JORGE STALLWORTH ([id number])[facility] (HLAB)[address] [place] [address] Basic metabolic 1998 panelon 08-07-2024 Anion gap [Moles/Vol] 10 mmol/L 3 - 13 mmol/L [facility] Calcium [Mass/Vol] 8.8 mg/dL 8.4 - 10. 2 mg/dL [facility] Chloride [Moles/Vol] 108 mmol/L High 98 - 10 7 mmol/L [facility] CO2 [Moles/Vol] 22 mmol/L 22 - 29 mmol/L [facility] Creatinine [Mass/Vol] 0.73 mg/dL 0.57 - 1.11 mg/dL [facility] GFR/1.73 sq M.predicted (S/P/Bld) [Vol rate/Area] - PINF [facility] Comment on above: Calculation based on the Chronic Kidney Disease Epidemiology Collaboration (CKD-EPI) equation refit without adjustment for race Glucose [Mass/Vol] 215 mg/dL High 74 - 100 mg/dL [facility] Potassium [Moles/Vol] 3.8 mmol/L 3.5 - 5.1 mmol/L [facility] Comment on above: Plasma potassium maría ues may be up to 0.5 mmol/L lower than serum values. Sodium [Moles/Vol] 140 mmol/L 136 - 145 mmol/L [facility] Urea nitrogen [Mass/Vol] 21 mg/dL 9 - 23 mg/dL [facility] CBC W Auto Differential pane l (Bld)on 08-07-2024 Basophils (Bld) [#/Vol] 0.1 10*3/uL 0.0 - 0.2 10*3/uL [facility] Basophils/100 WBC (Bld) 0.7 % 0.0 - 2.0 % [facility] Eosinophils (Bld) [#/Vol] 0.2 10*3/uL 0.0 - 0.5 10*3/uL [facility] Eosinophils/100 WBC (Bld) 1.9 % 0.0 - 6.0 % [facility] Erythrocyte distribution width (RBC) [Ratio] 12.5 % 11.5 - 15.0 % [facility] Hematocrit (Bld) [Volume fraction] 39.1 % 35.0 - 47.0 % [facility] Hemoglobin (Bld) [Mass/Vol] 12.8 g/dL 11.7 - 16.0 g/dL [facility] Immature granulocytes (Bld) [#/Vol] 0 10*3/uL NINF - 0.1 10*3/uL [facility] Immature granulocytes/100 WBC (Bld) 0.3 % 0.0 - 2.0 % [facility] Interpretation and review of laboratory results Normal [facility] Lymphocytes (Bld) [#/Vol] 2.5 10*3/uL 1.0 - 4.3 10*3/uL [facility] Lymphocytes/100 WBC (Bld) 23.6 % 15.0 - 45.0 % [facility] MCH (RBC) [Entitic mass] 29.4 pg 26.0 - 34.0 pg [facility] MCHC (RBC) [Mass/Vol] 32.7 % 30.5 - 36.0 % [facility] MCV (RBC) [Entitic vol] 89.7 fL 77.0 - 99.0 fL [facility] Monocytes (Bld) [#/Vol] 0.6 10*3/uL 0.0 - 0.9 10*3/uL [facility] Monocytes/100 WBC (Bld) 6 % 5.0 - 13.0 % [facility] Neutrophils (Bld) [#/Vol] 7.1 10*3/uL 1.8 - 7.5 10*3/uL [facility] Neutrophils/100 WBC (Bld) 67.5 % 38.0 - 82.0 % [facility] Nucleated RBC/100 WBC (Bld) [Ratio] 0 % [facility] Platelet mean volume (Bld) [Entitic vol] 11 fL 9.0 - 12.7 fL [facility] Platelets (Bld) [#/Vol] 331 10*3/uL 140 - 440 10*3/uL [facility] RBC (Bld) [#/Vol] 4.36 10*6/uL 3.80 - 5.2 0 10*6/uL [facility] WBC (Bld) [#/Vol] 10.5 10*3/uL 3.6 - 10.7 10*3/uL [facility] CBC WITH AUTO DIFFERENTIALon 08-07-2024 Basophils (Bld) [#/Vol] 0.1 10*3/uL Normal 0.0-0.2 [facility] Comment on above: Performed By: #### L [id number] ####Center Mgr: JORGE STALLWORTH ([id number])[facility] (SB[facility])[address] [place] [address] [facility] Basophils/100 WBC (Bld) 0.7 % Normal 0.0-2.0 [facility] Comment on above: Performed By: #### L [id number] ####Center Mgr: JORGE STALLWORTH ([id number])[facility] (SBHLAB)[address] Eosinophils (Bld) [#/Vol] 0.2 10*3/uL Normal 0.0-0.5 [facility] Comment on above: Performed By: #### L [id number] ####Center Mgr: JORGE STALLWORTH ([id number])[facility] (SBHLAB)[address] Eosinophils/100 WBC (Bld) 1.9 % Normal 0.0-6.0 [facility] Comment on above: Performed By: #### L [id number] ####Center Mgr: JORGE STALLWORTH ([id number])[facility] [place] [facility] [place] [address] Erythrocyte distribution width (RBC) [Ratio] 12.5 % Normal 11.5-15.0 [facility] Comment on above: Performed By: #### L [id number] ####Center Mgr: JORGE STALLWORTH ([id number])[facility] [place] [facility] [place] [address] Hematocrit (Bld) [Volume fraction] 39.1 % Normal 35.0-47.0 [facility] Comment on above: Performed By: #### L [id number] ####Center Mgr: JORGE STALLWORTH ([id number])[facility] [place] [facility] [place] [address] Hemoglobin (Bld) [Mass/Vol] 12.8 g/dL Normal 11.7-16.0 [facility] Comment on above: Performed By: #### L [id number] ####Center Mgr: JORGE STALLWORTH ([id number])[facility] ([facility])[address] IMMATURE GRANS % 0.3 % Normal 0.0-2.0 [facility] Comment on above: Performed By: #### L [id number] ####Center Mgr: JORGE STALLWORTH ([id number])[facility] [place] (SBHLAB)[address] IMMATURE GRANS ABSOLUTE 0.0 10*3/uL Normal <0.1 [facility] Comment on above: Performed By: #### L [id number] ####Center Mgr: JORGE STALLWORTH ([id number])[facility] [place] (SBHLAB)[address] Lymphocytes (Bld) [#/Vol] 2.5 10*3/uL Normal 1.0-4.3 [facility] Comment on above: Performed By: #### L [id number] ####Center Mgr: JORGE STALLWORTH ([id number])[facility] (SBHLAB)[address] Lymphocytes/100 WBC (Bld) 23.6 % Normal 15.0-45.0 [facility] Comment on above: Performed By: #### L [id number] ####Center Mgr: JORGE STALLWORTH ([id number])[facility] (SBHLAB)[address] MCH (RBC) [Entitic mass] 29.4 pg Normal 26.0-34.0 [facility] Comment on above: Performed By: #### L [id number] ####Center Mgr: JORGE STALLWORTH ([id number])[facility] (SBHLAB)[address] [place] [address] MCHC 32.7 % Normal 30.5-36.0 [facility] Comment on above: Performed By: #### L [id number] ####Center Mgr: JORGE STALLWORTH ([id number])[facility] (SBHLAB)[address] MCV (RBC) [Entitic vol] 89.7 fL Normal 77.0-99.0 [facility] Comment on above: Performed By: #### L [id number] ####Center Mgr: JORGE STALLWORTH ([id number])[facility] (SBHLAB)[address] Monocytes (Bld) [#/Vol] 0.6 10*3/uL Normal 0.0-0.9 [facility] Comment on above: Performed By: #### L [id number] ####Center Mgr: JORGE STALLWORTH ([id number])[facility] [place] (SBHLAB)[address] Monocytes/100 WBC (Bld) 6.0 % Normal 5.0-13.0 [facility] Comment on above: Performed By: #### L [id number] ####Center Mgr: JORGE STALLWORTH ([id number])[facility] [place] (SBHLAB)[address] NEUTROPHILS ABSOLUTE 7.1 10*3/uL Normal 1.8-7.5 [facility] Comment on above: Performed By: #### L [id number] ####Center Mgr: JORGE STALLWORTH ([id number])[facility] [place] (SBHLAB)[address] Neutrophils/100 WBC (Bld) 67.5 % Normal 38.0-82.0 [facility] Comment on above: Performed By: #### L [id number] ####Center Mgr: JORGE STALLWORTH ([id number])[facility] [place] (SBHLAB)[address] NRBC 0.0 /100 WBCs Normal 0.0-2.0 [facility] Comment on above: Performed By: #### L [id number] ####Center Mgr: JORGE STALLWORTH ([id number])[facility] [place] (SBHLAB)[address] Platelet mean volume (Bld) [Entitic vol] 11.0 fL Normal 9.0-12.7 [facility] Comment on above: Performed By: #### L [id number] ####Center Mgr: JORGE STALLWORTH ([id number])[facility] (SBHLAB)[address] Platelets (Bld) [#/Vol] 331 10*3/uL Normal 140-440 [facility] Comment on above: Performed By: #### L [id number] ####Center Mgr: JORGE STALLWORTH ([id number])[facility] [place] (SBHLAB)[address] RBC (Bld) [#/Vol] 4.36 10*6/uL Normal 3.80-5.20 [facility] Comment on above: Performed By: #### L [id number] ####Center Mgr: JORGE STALLWORTH ([id number])[facility] (SBHLAB)[address] WBC (Bld) [#/Vol] 10.5 10*3/uL Normal 3.6-10.7 [facility] Comment on above: Performed By: #### L [id number] ####Center Mgr: JORGE STALLWORTH ([id number])[facility] (SBHLAB)[address] D-DIMER,QUANTITATIVEon 08-07 D-DIMER, INNOVANCE 0.42 mg/L Normal <0.50 [facility] Comment on above: Result Comment: LUDY Avila COMMENTS: [employer] D-Dimer values of <0.50 mg/L FEU can be used in combination with a pre-test probability model (e.g. Well's) to exclude pulmonary embolism (PE) disease, as well as an aid in the diagnosis of deep vein thrombosis (DVT). Performed By: #### L [id number] ####Center Mgr: JORGE STALLWORTH ([id number])[facility] (SBHLAB)[address] ED Nursing Noteon 08-07-2024 ED Nursing Note Pt discharged for ho me with information on follow-up discussed. Pt states understanding. Normal [facility] ED Provider Noteon ED Provider Note Emergency Department Encounter [facility] ED Patient: Jen Holder : 1965 Date of Evaluation: 08/07/2024 ED [facility] Provider: Ramya Lloyd PA-C Patient seen independently within my scope of practice with an Emergency Medicine attending available for supervision. Chief Complaint: Chief Complaint Patient presents with Chest Pain Pt arrived from home with midsternal chest pain for the last hour. Pt with pain 6/10. Pt states she had an abnormal EKG a few months ago but it was cleared. History of Present Illness: Jen Holder is a 59 y.o. female with past medical history of gout, GERD, cholelithiasis, UC who presented to the emergency department for evaluation of chest pressure. States it started approximately an hour prior to arrival, feels like a pressure in the middle of her chest that is not moved. States that she was just sitting there when it started, denies any trouble breathing. Patient states that she had an abnormal EKG a few months ago, and then had a cardiac workup because of it. Patient states he was not experiencing any chest pain at that time. Denies any nausea or vomiting. Denies any lightheadedness or dizziness. Denies any extremity pain or swelling Nursing notes were reviewed. Limitations to history: Outside historians: Review of Systems: Positives and pertinent negatives as per HPI. All other systems were reviewed and are acutely negative except as noted. Past History: Medical History[1] Surgical History[2] Social History[3] Medications/Allergies: Previous Medications CALCIUM CARBONATE 1500 (600 CA) MG TABLET Take by mouth. CHOLECALCIFEROL (D3-5) 5,000 UNITS TABLET CYANOCOBALAMIN (VITAMIN B 12 PO) Take by mouth. FOLIC ACID (FOLVITE) 1 MG TABLET LACTOBACILLUS PROBIOTIC PO Take by mouth. OMEPRAZOLE (PRILOSEC) [address] CAPSULE Take 40 mg by mouth every morning (before breakfast). POTASSIUM 99 MG TABLET Take by mouth. THERAPEUTIC MULTIVITAMIN-MINERALS (THERAGRAN-M) TABLET Take 1 tablet by mouth daily. TRAZODONE (DESYREL) 50 MG TABLET Take 1 tablet (50 mg) by mouth Nightly as needed for sleep. TRIAMCINOLONE (KENALOG) 0.5 % CREAM Apply topically 2 times daily. Allergies[4] Physical Exam: ED Triage Vitals [08/07/24 1719] Temp Heart Rate Resp BP 36.8 ?C (98.3 ?F) 107 18 (!) 162/114 SpO2 Temp Source Heart Rate Source Patient Position 96 % Temporal Monitor -- BP Location FiO2 (%) -- -- Physical Exam Vitals and nursing note reviewed. Constitutional: General: She is not in acute distress. Appearance: She is well-developed. HENT: Head: Normocephalic and atraumatic. Eyes: Conjunctiva/sclera: Conjunctivae normal. Cardiovascular: Rate and Rhythm: Normal rate and regular rhythm. Heart sounds: No murmur heard. Pulmonary: Effort: Pulmonary effort is normal. No respiratory distress. Breath sounds: Normal breath sounds. Abdominal: Palpations: Abdomen is soft. Tenderness: There is no abdominal tenderness. There is no guarding. Negative signs include Miranda's sign. Musculoskeletal: General: No swelling. Cervical back: Neck supple. Skin: General: Skin is warm and dry. Capillary Refill: Capillary refill takes less than 2 seconds. Neurological: Mental Status: She is alert. Psychiatric: Mood and Affect: Mood normal. Screenings: HEART Score History: Slightly suspicious ECG: Normal Age: 45-64 Risk Factors: 1-2 risk factors Troponin: Less than or equal to normal limit HEART Score: 2 Patients symptoms are consistent with sepsis, severe sepsis, or septic shock (If yes use .sepsiscoremeasure): Diagnostics: Labs: Labs Reviewed BASIC METABOLIC PANEL - Abnormal Result Value SODIUM 140 POTASSIUM 3.8 CHLORIDE 108 (*) CARBON DIOXIDE 22 UREA NITROGEN 21 CREATININE 0.73 GLUCOSE 215 (*) CALCIUM 8.8 ANION GAP 10 eGFR >90.0 HEPATIC FUNCTION PANEL - Abnormal BILIRUBIN, TOTAL 0.3 BILIRUBIN, DIRECT 0.1 ALKALINE PHOSPHATASE 115 AST (SGOT) 35 (*) ALT 48 (*) ALBUMIN 3.4 (*) TOTAL PROTEIN 6.9 CBC WITH AUTO DIFFERENTIAL - Normal Auto WBC 10.5 RBC 4.36 Hemoglobin 12.8 Hematocrit 39.1 MCV 89.7 MCH 29.4 MCHC 32.7 RDW 12.5 Platelets 331 MPV 11.0 nRBC 0.0 Neutrophils Relative 67.5 Lymphocytes Relative 23.6 Monocytes Relative 6.0 Eosinophils Relative 1.9 Basophils Relative 0.7 Immature Grans % 0.3 Neutrophils Absolute 7.1 Lymphocytes Absolute 2.5 Monocytes Absolute 0.6 Eosinophils Absolute 0.2 Basophils Absolute 0.1 Immature Grans Absolute 0.0 HIGH SENSITIVITY TROPONIN, SERIAL BASELINE - Normal Troponin HS Serial Baseline 4 D-DIMER,QUANTITATIVE - Normal D-DIMER, INNOVANCE 0.42 Narrative: [employer] D-Dimer values of <0.50 mg/L FEU can be used in combination with a pre-test probability model (e.g. Well's) to exclude pulmonary embolism (PE) disease, as well as an aid in the diagnosis of deep vein thrombosis (DVT). LIPASE - Normal L (more content not included)... Normal [facility] Fibrin D-dimer FEU (PPP) [Ma ss/Vol]on 08-07-2024 Interpretation and review of laboratory results Normal [facility] D-Dimer values of <0.50 mg/L FEU can be used in combination with a pre-test probability model (e.g. Well's) to exclude pulmonary embolism (PE) disease, as well as an aid in the diagnosis of deep vein thrombosis (DVT). [facility] HEPATIC FUNCTION PANELon Albumin [Mass/Vol] 3.4 g/dL Low 3.5-5.0 [facility] Comment on above: Performed By: #### L AB15, LAB20, LAB99, [id number] ####Center Mgr: JORGE STALLWORTH ([id number])[facility] ([facility])[address] [place] [address] ALP [Catalytic activity/Vol] 115 U/L Normal 40-150 [facility] Comment on above: Performed By: #### L AB15, LAB20, LAB99, [id number] ####Center Mgr: JORGE STALLWORTH ([id number])[facility] ([facility])[address] ALT [Catalytic activity/Vol] 48 U/L High <30 [facility] Comment on above: Performed By: #### L AB15, LAB20, LAB99, [id number] ####Center Mgr: JORGE STALLWORTH ([id number])[facility] ([facility])[address] AST [Catalytic activity/Vol] 35 U/L High <34 [facility] Comment on above: Performed By: #### L AB15, LAB20, LAB99, [id number] ####Center Mgr: JORGE STALLWORTH ([id number])[facility] ([facility] [place] [address] Bilirubin [Mass/Vol] 0.3 mg/dL Normal <1.2 [facility] Comment on above: Performed By: #### L AB15, LAB20, LAB99, [id number] ####Center Mgr: JORGE CUIRONNIE ([id number])[facility])[address] [place] [address] Bilirubin.indirect [Mass/Vol] 0.1 mg/dL Normal <0.5 [facility] Comment on above: Performed By: #### L AB15, LAB20, LAB99, [id number] ####Center Mgr: JORGE MONTANEZCER ([id number])[facility] ([facility])[address] [place] [address] Protein [Mass/Vol] 6.9 g/dL Normal 6.4-8.3 [facility] Comment on above: Result Comment: Seru m protein values are higher than plasma values. Samples from recumbent persons are lower by up to 0.5 g/dL as compared to ambulatory persons. After 60 years values are lower by up to 0.2 g/dL. Performed By: #### L AB15, LAB20, LAB99, [id number] ####Center Mgr: JORGE COONEYCHAPARRO ([id number])[facility] ([facility])[address] [place] [address] HIGH SENSITIVITY TROPONIN, S ERIAL BASELINEon 08-07-2024 TROPONIN HS SERIAL BASELINE 4 ng/L Normal <=14 [facility] Comment on above: Result Comment: In i ndividuals presenting with symptoms > 2h, a baseline troponin <= 5 ng/L suggests acute cardiac injury is unlikely and further serial testing is generally not indicated. Performed By: #### L AB15, LAB20, LAB99, [id number] ####Center Mgr: JORGE STALLWORTH ([id number])[facility] (SBHLAB)[address] HIGH SENSITIVITY TROPONIN, S ERIAL, SECOND TESTon 08-07-2024 2H TROPONIN HS (SERIAL 2ND TROPONIN) 4 ng/L Normal <=14 [facility] Comment on above: Result Comment: Risi ng or falling troponin delta below 2 ng/L as compared to baseline value suggests that acute cardiac injury is unlikely. Performed By: #### L [id number] ####Center Mgr: JORGE STALLWORTH ([id number])[facility] (SBHLAB)[address] Hepatic function 2000 panelo n 08-07-2024 Albumin [Mass/Vol] 3.4 g/dL Low 3.5 - 5.0 g/dL [facility] ALP [Catalytic activity/Vol] 115 U/L 40 - 150 U/L [facility] ALT [Catalytic activity/Vol] 48 U/L [facility] U/L [facility] AST [Catalytic activity/Vol] 35 U/L High [facility] - 34 U/L [facility] Bilirubin [Mass/Vol] 0.3 mg/dL [facility] - 1.2 mg/dL [facility] Bilirubin.conjugated [Mass/Vol] 0.1 mg/dL [facility] - 0.5 mg/dL [facility] Protein [Mass/Vol] 6.9 g/dL 6.4 - 8.3 g/dL [facility] Comment on above: Serum protein values are higher than plasma values. Samples from recumbent persons are lower by up to 0.5 g/dL as compared to ambulatory persons. After 60 years values are lower by up to 0.2 g/dL. LIPASEon 08-07-2024 Lipase [Catalytic activity/Vol] 44 U/L Normal <55 [facility] Comment on above: Performed By: #### L AB15, LAB20, LAB99, [id number] ####Center Mgr: JORGE STALLWORTH ([id number])[facility] (SB[facility]AB)[address] Laboratory - Chemistry and C hemistry - challengeon 08-07-2024 Lipase [Catalytic activity/Vol] 44 U/L NINF - 55 U/L [facility] Laboratory - Coagulationon 0 08-07-2024 Fibrin D-dimer FEU (PPP) [Mass/Vol] 0.42 mg/L NINF - 0.50 mg/L [facility] Lipase [Catalytic activity/V ol]on 08-07-2024 Interpretation and review of laboratory results Normal [facility] No Panel Informationon 08-07 2h Troponin HS (Serial 2nd Troponin) 4 ng/L [facility] - 14 ng/L [facility] Comment on above: Rising or falling tr oponin delta below 2 ng/L as compared to baseline value suggests that acute cardiac injury is unlikely. Interpretation and review of laboratory results Normal [facility] Interpretation and review of laboratory results Normal [facility] Troponin HS Serial Baseline 4 ng/L [facility] - 14 ng/L [facility] Comment on above: In individuals prese nting with symptoms > 2h, a baseline troponin <= 5 ng/L suggests acute cardiac injury is unlikely and further serial testing is generally not indicated. [facility] Interpretation and review of laboratory results Abnormal [facility] XR Chest Single viewon 08-07 1. Lines/Tubes/Devices/Pace rdware: None. Please confirm position and function of any catheters or attempted catheters clinically. 2. Lungs: No convincing acute process.. Consider follow-up with PA and lateral chest for persistent symptoms. 3. Pleura: No convincing significant effusion. No significant pneumothorax. 4. Heart and mediastinum: No convincing acute process. 5. Upper abdomen: No convincing acute process seen. 6. Thorax:No convincing acute bony process Comment: Please note this report has been produced using speech recognition software and may contain errors related to that system including errors in grammar, punctuation, and spelling as well as words and phrases that may be inappropriate. If there are any questions or concerns please feel free to contact the dictating provider for clarification Report Dictated on Electronically Signed By: Francisco Cochran MD Electronically Signed Date/Time: 08/07/2024 6:18 PM T [employer] [facility] Patient Name: JEN HOLDER : 1965 Exam Date/Time: 08/07/2024 18:10 Procedure: XR CHEST 1 VIEW Ordering Provider: LLOYD SAMANTHA Reason For Exam: CHEST PAIN; Chest Pain EXAM TYPE: RADIOLOGIC EXAMINATION, CHEST, SINGLE VIEW FRONTAL (CXR SINGLE VIEW) EXAM DATE AND TIME: 08/07/2024 6:10 PM EDT INDICATION: Chest pain COMPARISON: None TECHNIQUE: A single portable frontal view of the thorax was obtained and reviewed. Special views: None. [facility] Francisco Cochran MD - 08/07/2024 Patient Name: JEN [facility]OLDER : 1965 [id number] Exam Date/Time: 08/07/2024 18:10 Procedure: XR CHEST 1 VIEW Ordering Provider: LLOYD SAMANTHA Reason For Exam: CHEST PAIN; Chest Pain EXAM TYPE: RADIOLOGIC EXAMINATION, CHEST, SINGLE VIEW FRONTAL (CXR SINGLE VIEW) EXAM DATE AND TIME: 08/07/2024 6:10 PM EDT INDICATION: Chest pain COMPARISON: None TECHNIQUE: A single portable frontal view of the thorax was obtained and reviewed. Special views: None. IMPRESSION: 1. Lines/Tubes/Devices/Pace rdware: None. Please confirm position and function of any catheters or attempted catheters clinically. 2. Lungs: No convincing acute process.. Consider follow-up with PA and lateral chest for persistent symptoms. 3. Pleura: No convincing significant effusion. No significant pneumothorax. 4. Heart and mediastinum: No convincing acute process. 5. Upper abdomen: No convincing acute process seen. 6. Thorax:No convincing acute bony process Comment: Please note this report has been produced using speech recognition software and may contain errors related to that system including errors in grammar, punctuation, and spelling as well as words and phrases that may be inappropriate. If there are any questions or concerns please feel free to contact the dictating provider for clarification Report Dictated on Electronically Signed By: Francisco Cochran MD Electronically Signed Date/Time: 08/07/2024 6:18 PM EDT [facility] Radiology Study observation (narrative) [facility] Single viewOrdered By: Francisco Cochran on 08-07-2024 [facility] Work Phone: Office Visiton 08-02-2024 Follow-up visit [id number] Elvis Holder 1965 F Date Provider Department Center 08/02/2024 [id number] CEBALLOS [facility] Family History Problem Relation Age of Onset Diabetes Mother Comments: insulin Drug/Alcohol assessment Mother Comments: age 62 of complications of PUD - etohism Crohn's disease Mother Osteoporosis Mother Atrial fibrillation Father Comments: CHF High Blood Pressure Father Colon cancer Father 86 Comments: age 87 Stroke Father Lung cancer Sister Comments: in 50s, smoker Accidental Brother Comments: age 13 from accidental gunshot Family Status - Relation Status Age at Mother 62 Father 62 Sister Brother Level of Service:37807 [place] OFFICE/OUTPATIENT ESTABLISHED MOD MDM 30 MIN Reason for Visit and Comments: Follow-up [101582] - Med check Immunizations [58] - Pt declined Pneumococcal Vaccine Normal [facility] Progress Noteon 08-02-2024 Progress Note [facility] - [address] [facility] [id number] Visit type: Established Patient Reason for Visit: Follow-up (Med check) and Immunizations (Pt declined Pneumococcal Vaccine) Assessment / Plan: Jen was seen today for follow-up and immunizations. Diagnoses and all orders for this visit: Hyperuricemia (Primary) Comments: Improved, recheck lab continue low-dose allopurinol Orders: - Uric acid; Future - Uric acid Ulcerative colitis without complications, unspecified location (HCC) Comments: Stable on dietary changes, follow-up with Dr. Azar for needed colonoscopy Renal stones Chronic gout of foot, unspecified cause, unspecified laterality KAYLA on CPAP Comments: Stable, continue CPAP follow-up with pulmonary Labile essential hypertension Comments: Improved, history of whitecoat hypertension, continue CPAP and weight loss and exercise 35 Minutes spent on reviewing pertinent medical, surgical, family and social history, patient interview, physical exam, discussion of diagnosis, treatment and work-up options. Subjective: Patient ID: Jen Holder is a 59 y.o. female. HPI patient with history of stable ulcerative colitis, gout with history of renal stones, presents for follow-up after being worked up for atypical chest pain. Ultimately got a umbilical hernia repair and things are better. Saw cardiology for slightly abnormal EKG. CT of the coronaries was unremarkable as well as echocardiogram except for slight diastolic dysfunction. History of labile hypertension/whitecoat hypertension. Did not start her beta-tucker. Blood pressure better elsewhere. Review of Systems recently began on CPAP for sleep apnea. Only about 6 weeks of treatment. Sees pulmonary. Gout is affecting her feet or toes and taking low-dose allopurinol. Uric acid elevated above 7.8 last fall. No alcohol abuse. Mother was a drinker and did have gout. She has a history of kidney stones but not symptomatic. No breakthrough reflux. No abdominal pain. No meds for ulcerative colitis. He is overdue for colonoscopy by Dr. Ewing. No mucus blood diarrhea or constipation. No dysuria or hematuria. Recent mammogram up-to-date. He is overdue for Pap and pelvic exam. She does have 1 ovary remaining. Allergies[1] Current Medications[2] Problem List[3] Social History Tobacco Use Smoking status: Former Current packs/day: 0.00 Types: Cigarettes Quit date: 10/31/1994 Years since quittin.7 Smokeless tobacco: Never Substance Use Topics Alcohol use: Not Currently Surgical History[4] Family History[5] Objective: BP 136/86 Pulse 68 Temp 36.4 ?C (97.5 ?F) (Temporal) Ht 5' 6 (1.676 m) Wt 251 lb (114 kg) SpO2 98% BMI 40.51 kg/m? Physical Exam Besides her obesity and labile hypertension her exam was unremarkable. Normal eardrums and oropharynx. No neck masses JVD adenopathy or thyroid lesions. No carotid bruits. Heart is rate without gallops or murmurs. Lungs are clear. Abdomen obese nontender without pain hepatosplenomegaly masses or bruits. Pulses are good. No extremity edema. No obvious signs of gout today. Extensive reviewed patient's records including sleep study, echocardiogram, CTA of the coronaries, pulmonary and cardiology notes. And mammogram [1] Allergies Allergen Reactions Gadolinium Dizziness Nausea Latex Itching Swelling redness Oxycodone Itching Sulfa Antibiotics Nausea Only Other reaction(s): Leukocytosis (elevated number [2] Current Outpatient Medications: allopurinol (Zyloprim) 100 MG tablet, Take 1 tablet (100 mg) by mouth daily., Disp: 30 tablet, Rfl: 5 calcium carbonate 1500 (600 Ca) MG tablet, Take by mouth., Disp: , Rfl: cholecalciferol (D3-5) 5,000 Units tablet, , Disp: , Rfl: Cyanocobalamin (VITAMIN B 12 PO), Take by mouth., Disp: , Rfl: folic acid (Folvite) 1 MG tablet, , Disp: , Rfl: LACTOBACILLUS PROBIOTIC PO, Take by mouth., Disp: , Rfl: omeprazole (PriLOSEC) [address] capsule, Take 40 mg by mouth every morning (before breakfast)., Disp: , Rfl: Potassium 99 MG tablet, Take by mouth., Disp: , Rfl: therapeutic multivitamin-minerals (Theragran-M) tablet, Take 1 tablet by mouth daily., Disp: , Rfl: traZODone (Desyrel) 50 MG tablet, Take 1 tablet (50 mg) by mouth Nightly as needed for sleep., Disp: 30 tablet, Rfl: 3 triamcinolone (Kenalog) 0.5 % cream, Apply topically 2 times daily., Disp: 30 g, Rfl: 2 [3] Patient Active Problem List Diagnosis Allergic rhinitis Family history of diabetes mellitus Ulcerative colitis (HCC) Cholelithiasis Eczema GERD without esophagitis Nontraumatic incomplete tear of left rotator cuff Hyperuricemia Obesity (BMI 35.0-39.9 without comorbidity) Renal stones KAYLA on CPAP Gout Labile essential hypertension [4] Past Surgical History: Procedure Laterality Date ANKLE FRACTURE SURGERY Right 2011 ORIF COLONOSCOPY 201 (more content not included)... [facility] 36 06-16-2024 36 Recent Visits Date Type Provider Dept 04/08/24 Office Visit Bjorn Tejada PA-C [facility] 03/01/24 Office Visit Bjorn Tejada PA-C [facility] 01/05/24 Office Visit Bjorn Tejada PA-C [facility] Showing recent visits within past 365 days and meeting all other requirements Future Appointments Date Type Provider Dept 06/28/24 Appointment Rolando Ceballos DO [facility] Showing future appointments within next 90 days and meeting all other requirements Requested Prescriptions Pending Prescriptions Disp Refills traZODone (Desyrel) 50 MG tablet 30 tablet 3 Sig: Take 1 tablet (50 mg) by mouth Nightly as needed for sleep. Provider: Bjorn Tejada PA-C Verified pharmacy: yes Verified day(s) supplied: yes Verified refill(s) needed (previous prescription showing no refills in chart): Yes Have you received any controlled medications from any other provider? N/A Overdue for visit: No If yes - patient scheduled? Yes Most recent labs completed in chart? N/A None [facility] 36on 06-08-2024 36 We have been unable to reach your patient to schedule their testing. Test Name: Transthoracic echocardiogram (TTE) complete with contrast, bubble, strain, and 3D PRN 1st attempt mychart 05/04/24 - KM 2nd attempt -- LVM with cs details 06/08/24 CLP [facility] 36on 05-05-2024 36 Spoke with patient a kenneth advised that the Chest CT is now scanned and in chart to review and Aris Tejada has also seen it. [facility] 36 Called [facility] to get copy of CTA [place] [address] Name of caller: Elvis snyder Contact phone number: [phone] Relationship to Patient: patient Provider: Lin Practice: [facility] Chief Complaint/Reason for Call: Pt had testing done from [facility] the one report I am not seeing scanned into media is for CTA HEART CORONARY ANGIOGRAM WITH PROV FFR-CT. Have we received results on this and has not been scanned in yet? Pt would like to make sure we have received. Please call pt to advise Best time of day caller can be reached: AM Patient advised that office/PCP has 24-48 business hours to return their call: N/A [facility] Cardiology Visit Reporton Cardiology Visit Report [facility] [address] [place], [place] [address] OFFICE VISIT Date of Service: 05/04/24 MR#: [id number] Acct: [id number] Name: JEN HOLDER Rep #: [id number] : 1965 Provider: Dr. Cody Lee MD Age/Sex: 59/F Location: [facility] Status: Signed HPI HPI History of Present Illness Details: 59-year-old lady with no previous cardiac history who as part of the preoperative evaluation was noted to have an abnormal EKG. She denies any chest pain or shortness of breath or paroxysmal nocturnal dyspnea pedal edema she does have some left shoulder pain. As part of her workup she underwent an echocardiographic evaluation which demonstrated preserved ejection fraction estimated EF 65% and subsequently a CTA which demonstrated no intraluminal significant atherosclerotic plaquing. She is here for discussion about her cardiac risk and the abnormal EKG. She has had no dizziness or diaphoresis no near-syncope or syncope. Intake Vital Signs 03/25/24 10:27 04/28/24 14:12 05/04/24 15:00 05/04/24 15:06 Height 5 ft 6 in 5 ft 6 in 5 ft 6 in 5 ft 6 in Weight: 245 lb BMI 39.5 BP 131/94 H Blood Pressure Location Lt brachial Position Sitting Respiration 18 Pulse 88 Pulse Source Monitor Pulse Oximetry (%) 93 Intake Visit Reasons: ABN EKG (SELF) Director Of Research And Development Required: No Is patient in pain?: No Allergies latex Allergy (Verified 05/04/24 15:01) Itching oxycodone (From Percocet) Allergy (Verified 05/04/24 15:01) Itching Iodinated Contrast Media (Iodinated Contrast- Oral and IV Dye) Adverse Reaction (Verified 05/04/24 15:01) NAUSEA,DIAPHORESIS Sulfa (Sulfonamide Antibiotics) Adverse Reaction (Verified 05/04/24 15:01) UNABLE TO TAKE WITH CROHNS DISEASE Medications ???Medication ???Instructions ???Recorded ???Confirmed ???Type multivitamin with folic acid 400 1 tab PO DAILY 12/26/15 04/28/24 H istory mcg tablet calcium carbonate 500 mg PO DAILY 01/07/18 04/28/24 History potassium 99 mg tablet 550 mg PO DAILY 01/07/18 04/28/24 History Lactobac no.2-Bifidobac no.1-S. 1 cap PO DAILY #30 caps 12/21/20 0 04/28/24 Rx thermo 112.5 billion cell capsule (VSL#3) folic acid 1 mg tablet 1 mg PO DAILY 03/27/22 04/28/24 Hi story triamcinolone acetonide 0.5 % 1 applic topical PRN PRN EXCEMA 04/28/24 History topical cream omeprazole 40 mg capsule,delayed 40 mg PO QDAY #30 caps 03/07/24 Rx release allopurinol 100 mg tablet 100 mg PO DAILY 03/18/24 04/28/24 History trazodone 50 mg tablet 50 mg PO QHS 03/18/24 04/28/24 His tory cholecalciferol (vitamin D3) 125 125 mcg PO QDAY 04/25/24 04/28/24 History mcg (5,000 unit) capsule PFSH Medical History Insomnia Nonspecific chest pain Abnormal EKG BMI 38.0-38.9,adult Adrenal nodule GERD (gastroesophageal reflux disease) Umbilical hernia Gout Low iron History of hiatal hernia Left shoulder pain Lipoma of back COVID-19 long hauler manifesting chronic cough Conjunctivitis, right eye Blepharitis of right lower eyelid Anxiety Diabetes Fatty liver Back pain Injury of back Migraine headache Hx of ulcerative colitis Heartburn Shortness of breath on exertion Leg cramps Anemia Arthritis Surgical History S/P umbilical hernia repair, follow-up exam S/P excision of lipoma Hx of colonoscopy Hx of cystoscopy History of sinus surgery History of ankle surgery H/O: hysterectomy Family History Mother Diabetes Thyroid disorder Father Colon cancer Heart disease Hypertension CVA (cerebral vascular accident) Afib Other Colitis Ulcerative colitis Social History Smoking Status: Former smoker alcohol intake: never ROS Const Const: Negative for fatigue, weakness, body ache, fever(s), headache(s), chills, frequent falls, night sweats, daytime sleepiness, difficulty sleeping, excessive sweating, weight gain, weight loss, increased appetite, poor appetite, anorexia or other Eyes Eyes: Negative for blind spots, loss of peripheral vision, transient loss of vision, blurry vision, change in vision, double vision, floaters, tunnel vision or other ENT ENT: Negative for headache(s) Cardio Chest Pain: No Resp Respiratory: Negative for SOB with activity, SOB at rest, SOB orthopnea SOB lying down, Cough, Coughing up blood/hemoptysis, chest congestion, pain on inspiration, snoring, stridor, wheezing, crackles, paroxysmal nocturnal dyspnea or other GI GI: Negative nausea, vomiting, heartburn, constipation, belching, bloating, cramping, vomiting blood/ (more content not included)... Normal [facility] Coronary Angiography CTon Coronary Angiography CT [facility] Imaging Services [address] [place] [address] 04/28/24 1707 MR#: [id number] Acct: [id number] Name: JEN HOLDER Rep #: [id number] : 1965 59 From: Cody Lee MD PCP: Dr. Rolando Ceballos DO Status:REG CLI Y Location: CT CCTA w/Cont Coronary Arteries Date of Study:: 04/28/24 Coronary Calcium Scoring: High-resolution Computed Tomographic imaging of the chest was performed on [04/28/24 ], with particular attention paid to the coronary arteries. Intravenous contrast agent was administered per protocol and images reconstructed and displayed. LEFT MAIN CORONARY ARTERY: Arises from the left coronary Cusp with no significant stenosis present. [] LEFT ANTERIOR DESCENDING CORONARY ARTERY: The left anterior descending artery has no significant atherosclerotic plaquing noted. [] LEFT CIRCUMFLEX CORONARY ARTERY: Nondominant vessel with no significant atherosclerotic plaquing. [] RIGHT CORONARY ARTERY: Dominant vessel with no significant atherosclerotic plaquing noted. Conclusion: No significant atherosclerotic plaquing noted. [] 04/28/24 1717 Date Cody Lee MD Cosigner Signature (if applicable): Date CC: Dr. Cody Lee MD; Dr. Rolando Ceballos DO; DHAVAL García Signed Normal [facility] Limited Chest CT Cardiac Onl yon 04-28-[address] Cardiac Only [facility] Imaging Services [address] [place], [place] [address] Limited Chest CT Cardiac Only MR#: [id number] Acct: [id number] Name: JEN HOLDER Rep #: [id number] : 1965 F 59 From: Cabrera barroso MD PCP: Dr. Rolando Ceballos DO Status: REG CLI Study: Limited Chest CT Cardiac Only Date of Exam: Exam# [id number] Ordering Dr: Bjorn Tejada PROCEDURE: LIMITED CHEST CT CARDIAC ONLY REASON FOR EXAM: Chest pain. TECHNIQUE: Chest CT with intravenous contrast. CONTRAST: 100 mL of Isovue 370 was given intravenously. COMPARISON: None. FINDINGS: Hardware: None. Lymph nodes: No mediastinal hilar or axillary lymphadenopathy. Heart and Vasculature: Coronary artery calcification. Thoracic aorta and pulmonary arteries are unremarkable. Lungs and Airways: The lungs are normally expanded and clear. Pleura: No pleural effusion. No pneumothorax. Upper Abdomen: Diffuse fatty infiltration of the liver. Bones: Bone windows are unremarkable. CT/Limited Chest CT Cardiac Only IMPRESSION: Coronary artery calcification. One or more dose reduction techniques were used (e.g., Automated exposure control, adjustment of the mA and/or kV according to patient size, use of iterative reconstruction technique). Reading Location: [facility] CC: Dr. Rolando Ceballos DO; DHAVAL García Maternity Floor Supervisor: Signed Normal [facility] 36on 04-27-2024 36 Name of caller: Angel Contact phone number: [phone] Relationship to Patient: [facility] Provider: Lin Practice: [facility] Chief Complaint/Reason for Call: pt having testing done tomorrow, Angel states she will need to take Metoprolol tonight and tomorrow, please send script YESSENIA Best time of day caller can be reached: any Patient advised that office/PCP has 24-48 business hours to return their call: No Normal [facility] Surgery Visit Reporton 04-25 Surgery Visit Report [facility] [address] [place] [address] OFFICE VISIT Date of Service: 04/25/24 MR#: [id number] Acct: [id number] Name: JEN HOLDER Rep #: [id number] : 1965 Provider: Dr. Marisa schilling MD Age/Sex: 59/F Location: [facility] Status: Signed Intake Vital Signs 03/25/24 10:27 Height 5 ft 6 in Intake Visit Reasons: UMBILICAL HERNIA DOS 03/25 Chief Complaint: umbilical hernia dos 03/25 Director Of Research And Development Required: No Is patient in pain?: No Allergies latex Allergy (Verified 04/25/24 15:05) Itching oxycodone (From Percocet) Allergy (Verified 04/25/24 15:05) Itching Iodinated Contrast Media (Iodinated Contrast- Oral and IV Dye) Adverse Reaction (Verified 04/25/24 15:05) NAUSEA,DIAPHORESIS Sulfa (Sulfonamide Antibiotics) Adverse Reaction (Verified 04/25/24 15:05) UNABLE TO TAKE WITH CROHNS DISEASE Medications ???Medication ???Instructions ???Recorded ???Confirmed ???Type multivitamin with folic acid 400 1 tab PO DAILY 12/26/15 04/25/24 H istory mcg tablet calcium carbonate 500 mg PO DAILY 01/07/18 04/25/24 History potassium 99 mg tablet 550 mg PO DAILY 01/07/18 04/25/24 History Lactobac no.2-Bifidobac no.1-S. 1 cap PO DAILY #30 caps 12/21/20 0 04/25/24 Rx thermo 112.5 billion cell capsule (VSL#3) cyanocobalamin-liver extract tablet 1 tab PO DAILY 03/27/22 5 History folic acid 1 mg tablet 1 mg PO DAILY 03/27/22 04/25/24 Hi story triamcinolone acetonide 0.5 % 1 applic topical PRN PRN EXCEMA 04/25/24 History topical cream omeprazole 40 mg capsule,delayed 40 mg PO QDAY #30 caps 03/07/24 Rx release allopurinol 100 mg tablet 100 mg PO DAILY 03/18/24 04/25/24 History trazodone 50 mg tablet 50 mg PO QHS 03/18/24 04/25/24 His tory cholecalciferol (vitamin D3) 125 125 mcg PO QDAY 04/25/24 04/25/24 History mcg (5,000 unit) capsule Have you fallen in the past year?: No Subjective Details: 59-year-old female presents status post umbilical hernia repair with mesh. Patient is doing well from surgery. Patient instructed ready to return to work without restrictions. Objective Details: Abdomen: Infraumbilical incision healing well clean dry and intact no signs of infection Coding Level of Care Code Global Post Op Diagnoses S/P umbilical hernia repair, follow-up exam Z09 [facility] Medical History (Updated 04/25/24 @ 11:17 by Va Villarreal, [place]AD[place]) Insomnia Nonspecific chest pain Abnormal EKG BMI 38.0-38.9,adult Adrenal nodule GERD (gastroesophageal reflux disease) Umbilical hernia Gout Low iron History of hiatal hernia Left shoulder pain Lipoma of back COVID-19 long hauler manifesting chronic cough Conjunctivitis, right eye Blepharitis of right lower eyelid Anxiety Diabetes Fatty liver Back pain Injury of back Migraine headache Hx of ulcerative colitis Heartburn Shortness of breath on exertion Leg cramps Anemia Arthritis Surgical History (Updated 04/08/24 @ 09:37 by Naren Qureshi) S/P umbilical hernia repair, follow-up exam S/P excision of lipoma Hx of colonoscopy Hx of cystoscopy History of sinus surgery History of ankle surgery H/O: hysterectomy Family History (Updated 04/25/24 @ 11:19 by Va Villarreal, MAD[place]) Mother Diabetes Thyroid disorder Father Colon cancer Heart disease Hypertension CVA (cerebral vascular accident) Afib Other Colitis Ulcerative colitis Social History Smoking Status: Former smoker alcohol intake: never Assessment and Plan (No Qualifiers) Assessment and Plan (1) S/P umbilical hernia repair, follow-up exam: Status: Acute Plan incision healing well, holly PO, +BM. ok to return to work no restrictions. Follow-up as needed. Patient is agreeable plan Marisa Palm M.D. Pager: [phone] [facility] [address] [place] [address], [facility] [address] [place] [id number] Office: [phone] 04/26/24 1356 Date Marisa Malagon Signature: Date (if applicable) CC: Dr. Rolando Ceballos, DO Normal [facility] Echo Completeon 04-15-2024 Echo Complete [facility] [address] [place] [address] Echo Complete 04/15/24 1455 MR#: [id number] Acct: [id number] Name: JEN HOLDER Rep #: [id number] : 1965 59 From: Cody Lee MD Attending Dr: DHAVAL García Status: REG I Ordering Dr: Bjorn Tejada Date: 04/15/24 Location: [facility] Sex: F C Admitted: Reason For Study: Abnormal EKG Procedure This was a 2D Doppler, Color Flow transthoracic echocardiogram. Exam performed in department. Left Ventricle Normal LV size. Left ventricular systolic function is normal. The left ventricular ejection fraction is 65 %. Stage 1 diastolic dysfunction. No regional wall motion abnormalities noted. Right Ventricle Normal RV size. Normal systolic function. Atria Normal left atrium. Normal right atrium. Mitral Valve Normal mitral valve. Tricuspid Valve Normal tricuspid valve. Aortic Valve Trisinus/trileaflet aortic valve. Pulmonic Valve Normal pulmonic valve. Great Vessels Normal aortic root. The pulmonary artery is normal size. Inferior vena cava collapse with respiration. Pericardium/Pleural No pericardial effusion. MMode/2D Measurements Calculations LVIDd: 4.5 cm IVSd: 1.3 cm Ao root diam: 3.3 cm LVIDs: 2.8 cm LVPWd: 1.0 cm RVDd: 2.8 cm FS: 38.7 % LAV(MOD-bp): 35.2 ml LVAd ap4: 27.0 cm2 SV(MOD-sp4): 45.9 ml LAV(MOD-bp) Indexed: 16.2 ml/m2 LVLd ap4: 8.1 cm SI(MOD-sp4): 21.1 ml/m2 LAV(MOD-sp2): 38.8 ml EDV(MOD-sp4): 74.4 ml LAV(MOD-sp4): 31.3 ml EDV(sp4-el): 76.6 ml LVAs ap4: 14.4 cm2 LVLs ap4: 6.7 cm ESV(MOD-sp4): 28.5 ml ESV(sp4-el): 26.4 ml EF(MOD-sp4): 61.7 % EF(sp4-el): 65.5 % SV(sp4-el): 50.1 ml LA A4 area: 13.2 cm2 LA dimension(2D): 4.2 cm RA A4 area: 11.8 cm2 Time Measurements MV dec time: 0.16 sec Doppler Measurements Calculations MV E max william: 63.3 cm/sec Lat Peak E' William: 12.3 cm/sec Med Peak E' William: 6.6 cm/sec MV A max william: 107.4 cm/sec E/E' lat: 5.1 E/E' med: 9.6 MV E/A: 0.59 MV V2 max: 128.6 cm/sec MV P1/2t max william: 69.4 cm/sec Ao V2 max: 169.9 cm/sec MV max P.6 mmHg MV P1/2t: 53.4 msec Ao max P.5 mmHg MV V2 mean: 67.4 cm/sec MV mean P.2 mmHg MV dec slope: 380.6 cm/sec2 MV V2 VTI: 18.6 cm MVA(P1/2t): 4.1 cm2 LV V1 max: 146.3 cm/sec PA V2 max: 99.4 cm/sec LV V1 max P.6 mmHg LV V1 mean P.4 mmHg LV V1 mean: 97.4 cm/sec LV V1 VTI: 27.2 cm ECHO/Echo Complete Interpretation Summary Normal LV size. Left ventricular systolic function is normal. The left ventricular ejection fraction is 65 %. Stage 1 diastolic dysfunction. Ordering Physician: Bjorn Tejada Referring Physician: Bjorn Tejada Performed By: Cornelio Romero RCS 04/18/24817 Date Cody Lee MD CC: Dr. Rolando Ceballos, DO; DHAVAL García Date Dictated: 04/15/241454 Date Transcribed: 04/18/24817 Maternity Floor Supervisor: Signed Normal [facility] 36on 04-12-2024 36 Talked to patient an d let her about rx being called into her pharmacy, and faxed ov notes to [facility] per requested. Normal [facility] ECG 12 leadOrdered By: Sugar Hayes on 04-08-2024 [facility] Office Visiton 04-08-2024 Follow-up visit [id number] Elvis Holder 1965 F Date Provider Department Center 04/08/2024 BJORN GAO [facility] Family History Problem Relation Age of Onset Diabetes Mother Comments: insulin Other Mother Comments: age 62 of complications of PUD - etohism Crohn's disease Mother Alcohol abuse Mother Osteoporosis Mother Atrial fibrillation Father Comments: CHF High Blood Pressure Father Colon cancer Father 80 Comments: age 87 Stroke Father Family Status - Relation Status Age at Mother 62 Father 62 Level of Service:31806 [place] OFFICE/OUTPATIENT ESTABLISHED LOW MDM 20 MIN Reason for Visit and Comments: Abnormal ECG [293] Normal [facility] Progress Noteon 04-08-2024 Progress Note - Chronic and unstab le continues to use trazodone does have sleep apnea continues to workup with pulmonology we will entertain the idea of CPAP device which should help sleeping issues as well. Normal [facility] Progress Note [facility] [address]DomitilaUNIV[facility] [address] [facility] [address] Dept: [phone] Dept Loc: [phone] Visit type: Established Patient Reason for Visit: Abnormal ECG Assessment and Plan 1. Abnormal EKG - ECG 12 lead - Transthoracic echocardiogram (TTE) complete with contrast, bubble, strain, and 3D PRN - perflutren protein A microsphere (Optison) 3 mL in sodium chloride (PF) 0.9 % 10 mL IV syringe; 0-10 mL, IntraVENous, IMG once PRN, other, suboptimal echo image, Starting on Thu04/08/24 at 0755, For 1 dose, CV Procedural MedicationsAdminister via slow IVP for suboptimal echocardiogram enhancement. May administer as divided doses to reach optimal image enhancement - CTA HEART CORONARY ANGIOGRAM WITH PROV FFR-CT 2. Chest pain, unspecified type - Transthoracic echocardiogram (TTE) complete with contrast, bubble, strain, and 3D PRN - perflutren protein A microsphere (Optison) 3 mL in sodium chloride (PF) 0.9 % 10 mL IV syringe; 0-10 mL, IntraVENous, IMG once PRN, other, suboptimal echo image, Starting on Thu04/08/24 at 0755, For 1 dose, CV Procedural MedicationsAdminister via slow IVP for suboptimal echocardiogram enhancement. May administer as divided doses to reach optimal image enhancement - CTA HEART CORONARY ANGIOGRAM WITH PROV FFR-CT 3. Elevated blood pressure reading in office without diagnosis of hypertension 4. Primary insomnia Assessment & Plan: - Chronic and unstable continues to use trazodone does have sleep apnea continues to workup with pulmonology we will entertain the idea of CPAP device which should help sleeping issues as well. Patient reports periodic issues with chest heaviness and pressure on the left side of her chest. EKG was read as abnormal which does show some abnormalities in V1. Does not show any signs of acute active disease but given her history and symptoms I think it warrants further evaluation including echocardiogram and CT angio. Patient is not a candidate for stress treadmill. Patient is unable to walk any significant distance due to severe shortness of breath for which she continues to follow-up with pulmonology. Blood pressure elevated in the office today however the patient does suffer from whitecoat hypertension we will continue to closely monitor. Follow up for Next scheduled follow-up. Subjective HPI this is a 58-year-old female who recently had an EKG preoperatively that was abnormal she was concerned about it so requested follow-up in the office to have it reevaluated and discuss any possible further treatment and evaluation. 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 Review of Systems Constitutional: Negative for chills and fever. HENT: Negative for congestion and sore throat. Respiratory: Positive for chest tightness and shortness of breath. Negative for cough. Cardiovascular: Negative for chest pain. Gastrointestinal: Negative for abdominal pain, diarrhea, nausea and vomiting. Genitourinary: Negative for difficulty urinating, dysuria, frequency and urgency. Musculoskeletal: Negative for back pain. Neurological: Negative for dizziness and light-headedness. Psychiatric/Behavioral : Positive for sleep disturbance. All other systems reviewed and are negative. Allergies Allergen Reactions Gadolinium Dizziness Nausea Latex Itching Swelling redness Oxycodone Itching Sulfa Antibiotics Nausea Only Other reaction(s): Leukocytosis (elevated number Current Outpatient Medications Medication Sig Dispense Refill allopurinol (Zyloprim) 100 MG tablet Take 1 tablet (100 mg) by mouth daily. 30 tablet 5 calcium carbonate 1500 (600 Ca) MG tablet Take by mouth. cholecalciferol (D3-5) 5,000 Units tablet Cyanocobalamin (VITAMIN B 12 PO) Take by mouth. folic acid (Folvite) 1 MG tablet LACTOBACILLUS PROBIOTIC PO Take by mouth. omeprazole (PriLOSEC) [address] capsule Take 40 mg by mouth every morning (before breakfast). Potassium 99 MG tablet Take by mouth. therapeutic multivitamin-minerals (Theragran-M) tablet Take 1 tablet by mouth daily. traZODone (Desyrel) 50 MG tablet Take 1 tablet (50 mg) by mouth Nightly as needed for sleep. 30 tablet 3 triamcinolone (Kenalog) 0.5 % cream Apply topically 2 times daily. 30 g 2 No current facility-administered medications for this visit. Past Medical History: Diagnosis Date Allergic rhinitis stopped immunotherapy 2005 Breast cancer screening 04/2020 Dr. Fraga Cholelithiasis relatively asx Eczema Encounter for gynecological examination Dr. Medrano/Renard Family history of diabetes mellitus mother H/O colonoscopy 01/2020 Friend- due 02/11 H (more content not included)... Normal [facility] SCRN MAMM (CAD)W/CHERELLE Asencio n 04-08-2024 SCRN MAMM (CAD)W/CHERELLE BILMAHAMED [facility] Imaging Services [address] [place] [address] SCRN MAMM (CAD)W/CHERELLE BILAT MR#: [id number] Acct: [id number] Name: JEN HOLDER Rep #: [id number] : 1965 F 58 From: Cabrera barroso MD PCP: Dr. Rolando Ceballos, DO Status: [facility] Study: SCRN MAMM (CAD)W/CHERELLE BILAT Date of Exam: 03/23 10/14 Exam# [id number] Ordering Dr: Bjorn Tejada [id number] MAMMOGRAPHY - BILATERAL SCREENING REASON FOR EXAM: Female, 58 years old. Routine annual screening examination. PERTINENT HISTORY: Aunt with breast cancer. TECHNIQUE: Digital bilateral breast cherelle (3D mammographic acquisition) in the CC and MLO projections. 2-D mediolateral oblique (MLO) and craniocaudad (CC) views of both breasts were obtained. CAD: Full Field Digital Mammography with Computer Added Detection was performed. COMPARISON: Comparison is made with prior study dated April 24, 2020 and March 07, 2016. FINDINGS: Breast Composition: The breasts are almost entirely fatty. There are no dominant masses or suspicious calcifications. Stable bilateral fat-containing axillary lymph nodes. No other significant abnormalities are identified. There has been no significant change since the prior study. BI/SCRN MAMM (CAD)W/CHERELLE BILAT IMPRESSION: Stable bilateral screening mammogram. Yearly follow-up mammogram recommended. (A) ASSESSMENT CATEGORY: BIRADS Category 2: Benign. A letter regarding these results will be sent to the patient by the facility within 30 days. Approximately 10% of breast cancers are not detected by mammography. A normal mammogram should not delay biopsy of a clinically suspicious abnormality. [id number] Electronically Signed: Cabrera Fowler MD at 10:52 EST , CC: Dr. Rolando Ceballos DO; DHAVAL García Maternity Floor Supervisor: Signed Normal [facility] Surgery Visit Reporton 04-08 Surgery Visit Report [facility] [address] [place] [address] OFFICE VISIT Date of Service: 04/08/24 MR#: [id number] Acct: [id number] Name: JEN HOLDER Rep #: [id number] : 1965 Provider: Dr. Marisa schilling MD Age/Sex: 58/F Location[facility] Status: Signed Intake Vital Signs 03/25/24 10:27 Height 5 ft 6 in Intake Visit Reasons: UMBILICAL HERNIA DOS 1/3 Chief Complaint: umbilical hernia dos 1/3 Is patient in pain?: No Allergies latex Allergy (Verified 04/08/24 09:36) Itching oxycodone (From Percocet) Allergy (Verified 04/08/24 09:36) Itching Iodinated Contrast Media (Iodinated Contrast- Oral and IV Dye) Adverse Reaction (Verified 04/08/24 09:36) NAUSEA,DIAPHORESIS Sulfa (Sulfonamide Antibiotics) Adverse Reaction (Verified 04/08/24 09:36) UNABLE TO TAKE WITH CROHNS DISEASE Medications ???Medication ???Instructions ???Recorded ???Confirmed ???Type multivitamin with folic acid 400 1 tab PO DAILY 12/26/15 04/08/24 History mcg tablet iron, carbonyl 45 mg tablet 65 mg PO DAILYCM 01/10/16 04/08/24 History calcium carbonate 500 mg PO DAILY 01/07/18 04/08/24 History potassium 99 mg tablet 550 mg PO DAILY 01/07/18 04/08/24 History Lactobac no.2-Bifidobac no.1-S. 1 cap PO DAILY #30 caps 12/21/20 04/08/24 Rx thermo 112.5 billion cell capsule (VSL#3) cyanocobalamin-liver extract tablet 1 tab PO DAILY 03/27/22 04/08/24 History folic acid 1 mg tablet 1 mg PO DAILY 03/27/22 04/08/24 History triamcinolone acetonide 0.5 % 1 applic topical PRN PRN EXCEMA 01/12/23 04/08/24 History topical cream omeprazole 40 mg capsule,delayed 40 mg PO QDAY #30 caps 03/07/24 04/08/24 Rx release allopurinol 100 mg tablet 100 mg PO DAILY 03/18/24 04/08/24 History trazodone 50 mg tablet 50 mg PO QHS 03/18/24 04/08/24 History Subjective Details: 58 y/o F presents s/p umb hernia repair with mesh. Pt denies any abdominal pain or issues w the incision. Pt did have recent sleep study and found she has sleep apnea and also has a cardiac CT scheduled due to preop and repeat EKG w PCP showing old anterior infarct, NS. Pt denies chest pain Objective Details: umb incisions healing well small scab in middle, no signs of infection Coding Level of Care Code Global Post Op Diagnoses S/P umbilical hernia repair, follow-up exam Z09 [facility] Medical History (Updated 04/09/24 @ 13:[address] Marisa Palm MD) History of Clostridium difficile infection Gout Low iron History of hiatal hernia Gastric reflux Left shoulder pain Lipoma of back Acute pharyngitis, unspecified Strain of right knee COVID-19 long hauler manifesting chronic cough Conjunctivitis, right eye Blepharitis of right lower eyelid Wears glasses Anxiety Diabetes Fatty liver Back pain Injury of back Migraine headache Hx of ulcerative colitis Heartburn Former smoker Shortness of breath on exertion Leg cramps History of echocardiogram Diarrhea Anemia Fatty liver Arthritis Surgical History (Updated 04/08/24 @ 09:37 by Naren Qureshi) S/P umbilical hernia repair, follow-up exam S/P excision of lipoma Hx of colonoscopy Hx of cystoscopy History of sinus surgery History of ankle surgery H/O: hysterectomy Family History Mother Diabetes Thyroid disorder Father Colon cancer Heart disease Hypertension CVA (cerebral vascular accident) Other Colitis Ulcerative colitis Social History Smoking Status: Former smoker alcohol intake: never Assessment and Plan (No Qualifiers) Assessment and Plan (1) S/P umbilical hernia repair, follow-up exam: Status: Acute Plan incision healing well, holly PO, +BM. ok to return to work no lifting >40lbs x 2 weeks then no restrictions. f/u 2 weeks. 04/09/24 1307 Date Marisa Palm MD Cosigner Signature: Date (if applicable) CC: Dr. Rolando Ceballos DO Normal [facility] Discharge Instructionon Discharge Instruction [facility] Medical Records Department [address] [place] [id number] Instructions for Home/Discharge Instructions 03/25/24 1152 MR#: [id number] Acct: [id number] Name: JEN HOLDER Rep #: [id number] : 1965 58 From: Marisa Palm MD PCP: Dr. Rolando Ceballos DO Status:REG [facility] Discharge Instructions Diet Discharge Diet: Light diet - advance as tolerated Activity May shower in (days): 5 (Keep umbilical dressing clean dry and intact for 5 days. Okay to tape off with a Ziploc bag to shower. Or lower shower and upper sponge bath.) Lifting Restrictions: no lifting >20 lbs x 2 wks, no strenuous exercise for 4 wks Additional Activity Instructions:: - Dressing / Incision Call your doctor if your incision/area has: Continuous Slow Oozing, Sudden Increased Bleeding, Increased Pain/ Swelling, Increased Redness, Foul Smelling Discharge and Swelling at the incision site Call your doctor if you observe: Fever of 101 or Higher Remove Dressing in: 5 days (After 5 days okay to remove surgical dressing. Place cotton ball or rolled up gauze in bellybutton and retape daily for 2 more days.) Cleanse incision/area with: Do not get Incision Wet (for 5 days) Additional Dressing/Incision Instructions:: Steri-Strips will fall off in 7 to 10 days, if they do not fall off okay to remove after 10 days. Follow Up Care Please Follow Up With: Marisa Palm MD When: Call the office for a follow-up appointment 2 weeks; after 5 PM and on the weekends call [phone] with any concerns. Test Results: Test results from this visit will be discussed in further detail at your follow-up appointment, if applicable. Discharge Plan Admission Attending Provider: Marisa Palm Primary Care Provider: Rolando Ceballos Instructions Print Language: Luxembourgish Discharge Orders/Prescriptions Prescriptions: New hydrocodone-acetaminop hen 5-325 mg tablet 1 tab PO Q6H PRN (Reason: pain) 3 Days Qty: 10 0RF Continued VSL#3 112.5 billion cell capsule 1 cap PO DAILY Qty: 30 2RF omeprazole 40 mg capsule,delayed release(DR/EC) 40 mg PO QDAY Qty: 30 6RF Rx Instructions: swallow whole; do not crush, chew, dissolve, cut, break iron, carbonyl 45 MG capsule 65 mg PO DAILYCM multivitamin with folic acid 1 TABLET tablet 1 tab PO DAILY potassium 99 MG tablet 550 mg PO DAILY calcium carbonate 500 MG tablet 500 mg PO DAILY cyanocobalamin-liver extract Tablet 1 tab PO DAILY folic acid 1 mg tablet 1 mg PO DAILY triamcinolone acetonide 0.5 % cream 1 applic TOPICAL PRN PRN (Reason: EXCEMA) Patient Comments: APPLY TO AFFECTED AREA OFYHANDS 2 TIMES A DAY trazodone 50 mg tablet 50 mg PO QHS allopurinol 100 mg tablet 100 mg PO DAILY Other Ambulatory Orders: 12 Lead EKG (Routine) Timeframe: [id number] Location: None Selected Ordered By: Dr. Juan Polk Referrals / Follow Up: Rolando Ceballos DO [Primary Care Provider] - Disposition Disposition (needs filled in before D/C Order can be placed): Home, Self Care 03/25/24 8415 Marisa Palm MD CC: Dr. Rolando Ceballos DO Signed [facility] MR/POSTOP.Emilie 03-25-2024 MR/POSTOP.[facility] Medical Records Department [address] [place] [address] Anesthesia Postop Eval I 03/25/24 1208 MR#: [id number] Acct: [id number] Name: JEN HOLDER Rep #: [id number] : 1965 58 From: Eleni Ac CRNA PCP: Dr. Rolando Ceballos, DO Status:REG [facility] Y Race: C Location: [place] [address] Anesthesia: Postop Eval I Current Vital Signs Temperature: 97.4 F Pulse Rate: 80 Blood Pressure: 163/111 Respiratory Rate: 18 Pulse Ox: 97 Oxygen Delivery Method: Room Air Assessment Airway patent: Yes Spontaneous unlabored respirations: Yes Mental status: Asleep nausea: No Vomiting: No Anesthesia Complication: No Fluid Hydration Crystalloid volume administer (ml): 700 Total IV fluid infused: 700 Progress Note Anesthesia document: Postop Eval 1 completed: Yes 03/25/24 1209 Date Eleni Ac CITIZEN PARTICIPATION SPECIALIST Cosigner Signature: Date CC: Signed Normal [facility] Operative Reporton Operative Report [facility] Medical Records Department [address] [place] [address] Operative Report 03/25/24 1149 MR#: [id number] Acct: [id number] Name: JEN HOLDER Rep #: [id number] : 1965 58 From: Marisa Palm MD PCP: Dr. Rolando Ceballos, DO Status:REG [facility] Location: [address] Operative Report (Standard) Operative Information Date of Procedure: 03/25/24 Pre-Operative Diagnosis: Umbilical hernia Post-Operative Diagnosis: Same Surgery/Procedure Performed: Umbilical hernia pair with mesh transportation engineer: Yes Pipe [employer] Boiler [employer]vers Supervisor: Gabo Root Tasks completed by nurse practitioner physician assistant: Opening closing Type of Anesthesia: General/Supplemental RN Documented Start/Stop Times: Operation Date: 03/25/24 12:00 Case Time Into Pre-Op 03/25/24 10:11 Out of Pre-Op 03/25/24 11:01 Anesthesia Start 03/25/24 11:07 Into Room 03/25/24 11:07 Procedure Start 03/25/24 11:20 Procedure End 03/25/24 11:58 Anesthesia End 03/25/24 12:04 Out of Room 03/25/24 12:04 Into Recovery 03/25/24 12:10 Into Phase II Recovery 03/25/24 13:14 Out of Recovery 03/25/24 13:14 Procedure Start Time: 11:20 Procedure Stop Time: 11:58 Select all DRAINS/GRAFTS/IMPLANTS that apply: Prosthetic device Prosthetic device details: Ventralex ST hernia patch 4.3 cm Lot [id number] ref [id number] Special Medications: Ancef 2 g IV x 1 Estimated Blood Loss: < 10 cc Specimen collected: No Description of surgery: Patient was brought into the room placed supine on the operating table. Correct patient, procedure, site, positioning, special, was verified prior to procedure. General anesthesia was induced. The abdomen was prepped draped in usual sterile fashion. A curvilinear incision was made below the umbilicus with a 15 blade scalpel. This was deepened with electrocautery. A hemostat was used to go around the stalk of the umbilicus and Metzenbaum scissors was used to carefully divide the hernia sac from the skin of the umbilicus. The fascia around the hernia defect was cleared and the hernia defect measured 1.4 cm x 1.[address] hernia patch 4.3 cm was selected. This was secured laterally at its tails with 0 Prolene horizontal mattress suture. The hernia defect was closed with 2 [id number] 0 Prolene. The wound was irrigated with saline. Hemostasis was assured. The skin of the umbilicus was secured to the fascia using 3-0 Vicryl suture interrupted. The incision was closed with 3-0 Vicryl subdermal interrupted sutures and the skin was closed with interrupted 4-0 Monocryl sutures. Steri-Strips and Tegaderm and OpSite were placed over the incision once sterile cotton balls were placed in the umbilicus. Patient was extubated. Patient tolerated procedure well and was taken to the postanesthesia care unit in stable condition. Surgical Findings: 1.4 cm umbilical hernia Complications Complications: No 03/25/24 1324 Cosigner Signature (if applicable): CC: Dr. Rolando Ceballos DO; Dr. Marisa Palm MD Signed [facility] 12 Lead EKGon 03-21-2024 [address] [facility] Cardiovascular Services [address] [place] [address] 12 Lead EKG 03/21/24 0902 MR#: [id number] Acct: [id number] Name: GLORYJEN Rep #: [id number] : 1965 58 From: Cody Lee MD Attending Dr: Dr. Marisa Palm MD Status: P RE [facility] Ordering Dr: Marisa Palm MD Date: 03/21/24 Location: [facility] Sex: F C Admitted: Test Reason : PRE OP Blood Pressure : */* mmHG Vent. Rate : 92 BPM Atrial Rate : 92 BPM P-R Int : 130 ms QRS Dur : 80 ms QT Int : 402 ms P-R-T Axes : 18 -28 34 degrees QTcB Int : 497 ms Normal sinus rhythm Cannot rule out Anterior infarct , age undetermined Abnormal ECG Confirmed by CODY LEE MD ([id number]), preform plate maker DORIE HAILE ([id number]) on 03/21/2024 10:08:35 AM Referred By: Marisa Palm Confirmed By: CODY LEE MD 03/21/24 1008 Date Cody Lee MD CC: Dr. Rolando Ceballos DO; Dr. Marisa Palm MD Signed [facility] MR/PATHerlinda 03-21-2024 MR/PAT.[facility] Medical Records Department [address] [place] [address] PAT - Anesthesia 03/21/24 1716 MR#: [id number] Acct: [id number] Name: JEN HOLDER Rep #: [id number] : 1965 58 From: All Mak MD PCP: Dr. 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 When Was Last Pacemaker Check QUESTION #4 FULL TEXT: You/Your Family Experience fever (hyperthermia) with Anesthesia Last Oral Intake Last Oral intake: Last Oral Intake NPO since Meds taken in AM with sips of water? Meds patient instructed to take am of surgery PONV PONV - basting cleaner: PONV - basting cleaner Female Yes 03/18/24 08:14 HX of Motion Sickness No 03/18/24 08:14 HX of N/V After Surgery No 03/18/24 08:14 Non-Smoker Yes 03/18/24 08:14 Duration of Surgery greater No 03/18/24 08:14 than 60 minutes Number of Risk Factors 2 03/18/24 08:14 PONV Score Moderate Risk 03/18/24 08:14 Height Weight Height Weight: Anesthesia: Height Weight Height 5 ft 6 in 03/07/24 15:25 Respiratory Assessment Respiratory Assessment - basting cleaner: Respiratory Tract Infection Hx - basting cleaner Hx Respiratory Tract Infection No 03/18/24 08:14 STOP Sleep Apnea STOP Sleep Apnea - basting cleaner: STOP Sleep Apnea - basting cleaner Hx Hypertension No 03/18/24 08:14 Hx Sleep Apnea No 03/18/24 08:14 CPAP No 01/12/23 15:49 BIPAP No 01/12/23 15:49 Do you snore loudly (louder No 03/18/24 08:14 than talking or can be heard Do you often feel tired/ No 03/18/24 08:14 fatigued/ sleepy during daytime? Has anyone observed you stop No 03/18/24 08:14 breathing during sleep? STOP Results Negative 03/18/24 08:14 QUESTION #5 FULL TEXT : Do you snore loudly (louder than talking or can be heard through closed doors)? Tobacco Use History Tobacco Use History - basting cleaner: Tobacco Use History - basting cleaner Tobacco Use Smoking Status Former smoker 03/18/24 08:14 Hx Tobacco Use No 03/18/24 08:14 Years Smoking Packs Smoked per Day Smoking Cessation Date was No - quit smoking greater 03/18/24 08:14 within the last 15 years than 15 years ago Hx Smoking Cessation Date Hx Smoking Cessation No 03/18/24 08:14 Counseling Hematologic Medial History Hematologic Hx - basting cleaner: Hematologic Medical Hx - operations and intelligence assistant Hx of Blood Transfusion No 03/18/24 08:14 Hx of Transfusion in last 3 No 03/18/24 08:14 Months Date of Last Transfusion (if within last 3 months) Ever experience any problems No 03/18/24 08:14 with transfusion(s)? Specify any problems Hx of Preganancy in last 3 No 03/18/24 08:14 Months Nurse Filling Out Transfusion [facility] 03/18/24 08:14 Questions: Date: 03/18/24 03/18/24 08:14 Time: 08:21 03/18/24 08:14 Patient unable to answer at this time (ie. confused, unrespo /Reproduction History /Reproductive History - basting cleaner: /Reproductive Hx- basting cleaner Hx Now Gestational Age (in weeks): EDC: Hx Hx Para Hx Section SAB No 01/12/23 15:49 PFSH Medical History (Updated 03/18/24 @ 08:20 by Ana Hodge) History of Clostridium difficile infection Gout Low iron History of hiatal hernia Gastric reflux Left shoulder pain Lipoma of back Acute pharyngitis, unspecified Strain of right knee COVID-19 long hauler manifesting chronic cough Conjunctivitis, right eye Blepharitis of right lower eyelid Wears glasses Anxiety Diabetes Fatty liver Back pain Injury of back Migraine headache Hx of ulcerative colitis Heartburn Former smoker Shortness of breath on exertion Leg cramps History of echocardiogram Diarrhea Anemia Fatty liver Arthritis Home Medications ???Medication ???Instructions ???Recorded ???Last Taken ???Type multivitamin with folic acid 400 1 tab PO DAILY 12/26/15 Unknown History mcg tablet iron, carbonyl 45 mg tablet 65 mg PO DAILYCM 01/10/16 Un (more content not included)... [facility] 36on 03-17-2024 36 Orders cancelled 36 Pt took orders for Complete PFT and said she would sched her own test as she worked as [facility] and she would have done there. We also faxed orders and they would have contacted her at least once. Pt never had test done. Can orders be closed? [facility] 36on 03-10-2024 36 Orders were faxed to [facility] on 01/12/24. Pt was to sched her own tests due to working at [facility] 36 We have been unable to reach your patient to schedule their testing. Test Name: Complete PFT Pre and Post Bronchodilator 1st Attempt: left voice message, 01/15/24 JS 2nd Attempt I talked to the patient and she stated she does all her testing via [facility]. [facility] Surgery Visit Reporton 03-07 Surgery Visit Report [facility] [address] [place] [address] OFFICE VISIT Date of Service: 03/07/24 MR#: [id number] Acct: [id number] Name: JEN HOLDER Rep #: [id number] : 1965 Provider: Dr. Marisa schilling MD Age/Sex: 58/F Location: [facility] Status: Signed Intake Vital Signs 04/27/23 15:07 03/07/24 15:25 Height 5 ft 6 in 5 ft 6 in Weight: 244 lb BMI 39.4 BP 137/94 H Blood Pressure Location Rt brachial Position Sitting Respiration 17 Pulse 88 Pulse Source Monitor Pulse Oximetry (%) 99 Oxygen Delivery Method room air Intake Visit Reasons: UMBILICAL HERNIA Chief Complaint: umbilical hernia Is patient in pain?: Yes Allergies acetaminophen (From Percocet) Allergy (Verified 03/07/24 15:26) Itching latex Allergy (Verified 03/07/24 15:26) Itching oxycodone (From Percocet) Allergy (Verified 03/07/24 15:26) Itching Iodinated Contrast Media (Iodinated Contrast- Oral and IV Dye) Adverse Reaction (Verified 03/07/24 15:26) NAUSEA,DIAPHORESIS Sulfa (Sulfonamide Antibiotics) Adverse Reaction (Verified 03/07/24 15:26) UNABLE TO TAKE WITH CROHNS DISEASE Medications ???Medication ???Instructions ???Recorded ???Confirmed ???Type multivitamin with folic acid 400 1 tab PO DAILY 12/26/15 03/07/24 History mcg tablet iron, carbonyl 45 mg tablet 65 mg PO DAILYCM 01/10/16 03/07/24 History calcium carbonate 500 mg PO DAILY 01/07/18 03/07/24 History potassium 99 mg tablet 550 mg PO DAILY 01/07/18 03/07/24 History Lactobac no.2-Bifidobac no.1-S. 1 cap PO DAILY #30 caps 12/21/20 03/07/24 Rx thermo 112.5 billion cell capsule (VSL#3) cyanocobalamin-liver extract tablet 1 tab PO DAILY 03/27/22 03/07/24 History folic acid 1 mg tablet 1 mg PO DAILY 03/27/22 03/07/24 History sulfasalazine 500 mg tablet 500 mg PO TID 03/27/22 03/07/24 History triamcinolone acetonide 0.5 % 1 applic topical PRN PRN EXCEMA 01/12/23 03/07/24 History topical cream omeprazole 40 mg capsule,delayed 40 mg PO QDAY #30 caps 03/07/24 Rx release PFSH Medical History Acute pharyngitis, unspecified Anemia Anxiety Arthritis Back pain Blepharitis of right lower eyelid Conjunctivitis, right eye COVID-19 long hauler manifesting chronic cough Diabetes Diarrhea Fatty liver Fatty liver Former smoker Heartburn History of echocardiogram Hx of ulcerative colitis Injury of back Left shoulder pain Leg cramps Lipoma of back Migraine headache Shortness of breath on exertion Strain of right knee Wears glasses Surgical History S/P excision of lipoma Hx of colonoscopy Hx of cystoscopy History of sinus surgery History of ankle surgery H/O: hysterectomy Family History Mother Diabetes Thyroid disorder Father Colon cancer Heart disease Hypertension CVA (cerebral vascular accident) Other Colitis Ulcerative colitis Social History Smoking Status: Former smoker alcohol intake: never HPI HPI HPI: 58-year-old female presents due to umbilical hernia on CT. Patient is also interested to discuss her other findings including cholelithiasis, 1.3 cm adrenal nodule, hiatal hernia. Patient states she has been having some issues with umbilical hernia and has been having to push it back in and has been more painful she said she is notices for about the last 2 weeks. Patient's previous CAT scan 2018 did show umbilical hernia was little smaller. Patient has never had surgery in this area. Patient does have GERD for the last year daily has been taking a lot of Tums has not been on any Pepcid or omeprazole. Patient also denies any right upper quadrant pain nausea or vomiting after eating due to the gallstone which again was seen in the CAT scan in 2018 as well. ROS General General: Yes fatigue; No weight change, appetite, colon cancer or breast cancer HEENT HEENT: No difficulty swallowing, eye injury, eye surgery, swollen glands or hoarseness Endo Endocrine: No thyroid disease, diabetes mellitus, thyroid cancer, Hair loss, heat intolerance or cold intolerance Skin Skin: Yes rash; No changing moles Musc Musculoskeletal: Yes gout; No back problems, arthritis, rheumatoid arthritis or joint pain Cardio Cardiovascular: No murmur, pacemaker, heart disease, atrial fibrillation, high blood pressure, heart attack, heart stent, palpitations, shortness of breat with exertion or chest pain Psych Psychiatric: No depression, anxiety or hearing voices Resp Respiratory: No shortness of breath, No sleep apnea, Yes cough, No COPD, No asthma, No emphysema and No wheezing Gastro Gas (more content not included)... Normal [facility] 36on 03-01-2024 36 S: [facility] calling CAC f or med clarification B: ADWOA Bonilla: [facility] requesting frequency for prn med. R. Informed [facility] that RN will send TE to provider & office will call back to advise or addend E-script. Reason for Disposition Pharmacy calling with prescription question and triager unable to answer question Protocols used: Medication Question [id number]-[id number] [facility] Abdomen/Pelvis without Conto n 03-01-2024 Abdomen/Pelvis without Cont [facility] Imaging Services [address] [place] [address] Abdomen/Pelvis without Cont MR#: [id number] Acct: [id number] Name: JEN HOLDER Rep #: [id number] : 1965 F 58 From: Cabrera barroso MD PCP: Dr. Rolando Ceballos, DO Status: REG CLI Study: Abdomen/Pelvis without Cont Date of Exam: 02/20 Exam# [id number] Ordering Dr: Bjorn Tejada [id number] STUDY: CT ABDOMEN AND PELVIS WITHOUT CONTRAST REASON FOR EXAM: Female, 58 years old. Periumbilical pain, NAUSEA/VOMITING. PRIOR UTERUS REMOVED. History of Crohn''s disease. RADIATION DOSAGE (If Supplied By Facility): CTDIvol = ( 24.04 ) mGy, DLP = ( 1232.17 ) mGycm TECHNIQUE: Transaxial images were obtained from the dome of the diaphragm to the symphysis pubis without oral contrast, and without intravenous contrast. Sagittal and coronal images were reconstructed. Individualized dose optimization techniques were used for this CT. COMPARISON: Comparison is made with prior study dated December 09, 2017. FINDINGS: The visualized lung bases are unremarkable. The visualized portions of the heart are within normal limits. There is decreased attenuation of the liver consistent with steatosis. There is a solitary gallstone. This measures 2 cm. Normal spleen. Normal pancreas. There is a small, circumscribed, smooth, low attenuation left adrenal mass, consistent with an adrenal adenoma. This measures 1.3 cm. Normal right adrenal gland. Normal right kidney. Normal left kidney. There is a small hiatal hernia. Normal small intestine. Normal colon. The appendix is visualized and appears normal. Normal abdominal aorta. Normal inferior vena cava. Normal retroperitoneum. Normal urinary bladder. There is absence of the uterus consistent with a prior hysterectomy. There is a small umbilical hernia containing fat. The neck of the hernia measures 1.6 cm. There are increased markings within the fat in the hernia. Engorgement of the herniated fat should be ruled out. There are mild degenerative changes of the visualized lumbar spine. CT/Abdomen/Pelvis without Cont IMPRESSION: Fatty infiltration of the liver. Findings suggestive of a small left adrenal adenoma. Umbilical hernia containing fat with increased markings. Engorgement should BE ruled out. Clinical correlation recommended. The patient is status post hysterectomy. Solitary gallstone. Electronically Signed: Cabrera Fowler MD at 14:58 EST , CC: Dr. Rolando Ceballos, DO; DHAVAL García Maternity Floor Supervisor: Signed Normal [facility] CBC W/Diff, Automatedon 12- 0-2023 Absolute Lymph 2.87 X10 3/uL Normal 0.83-4.51 [facility] Comment on above: Performed By: #### L 100.0100, L500.4050, L501.2450 #### [facility] [address] [place], [address] Absolute Neut 7.2 X10 3/uL Normal 2.0-7.7 [facility] Comment on above: Performed By: #### L 100.0100, L500.4050, L501.2450 #### [facility] [address] [place], [address] Basophils/100 WBC (Bld) 0.6 % Normal 0-1 [facility] Comment on above: Performed By: #### L 100.0100, L500.4050, L501.2450 #### [facility] [address] [place], [address] Eosinophils/100 WBC (Bld) 1.8 % Normal 0-5 [facility] Comment on above: Performed By: #### L 100.0100, L500.4050, L501.2450 #### [facility] [address] [place], [address] Erythrocyte distribution width (RBC) [Ratio] 13.0 % Normal 11.6-14.6 [facility] Comment on above: Performed By: #### L 100.0100, L500.4050, L501.2450 #### [facility] [address] [place], [address] Hematocrit (Bld) [Volume fraction] 40.4 % Normal 37-47 [facility] Comment on above: Performed By: #### L 100.0100, L500.4050, L501.2450 #### [facility] [address] [place], [address] Hemoglobin (Bld) [Mass/Vol] 13.0 g/dL Normal 12.0-15.0 [facility] Comment on above: Performed By: #### L 100.0100, L500.4050, L501.2450 #### [facility] [address] [place], [address] IG% 0.400 Normal 0.0-0.9 [facility] Comment on above: Result Comment: IG% - Immature Granulocytes (promyelocytes, myelocytes and metamyelocytes) > 1% indicates that a LEFT SHIFT is Present. Performed By: #### L 100.0100, L500.4050, L501.2450 #### [facility] [address] [place], [address] Lymphocytes/100 WBC (Bld) 26.3 % Normal 19-41 [facility] Comment on above: Performed By: #### L 100.0100, L500.4050, L501.2450 #### [facility] [address] [place], [address] MCH (RBC) [Entitic mass] 29.3 pg Normal 27.0-32.0 [facility] Comment on above: Performed By: #### L 100.0100, L500.4050, L501.2450 #### [facility] [address] [place], [address] MCHC (RBC) [Mass/Vol] 32.2 g/dL Normal 32-36 [facility] Comment on above: Performed By: #### L 100.0100, L500.4050, L501.2450 #### [facility] [address] [place], [address] MCV (RBC) [Entitic vol] 91.0 fL Normal 81-99 [facility] Comment on above: Performed By: #### L 100.0100, L500.4050, L501.2450 #### [facility] [address] [place], [address] Monocytes/100 WBC (Bld) 5.1 % Normal 0-10 [facility] Comment on above: Performed By: #### L 100.0100, L500.4050, L501.2450 #### [facility] [address] [place], [address] Neutrophils/100 WBC (Bld) 65.8 % Normal 47-70 [facility] Comment on above: Performed By: #### L 100.0100, L500.4050, L501.2450 #### [facility] [address] [place], [address] Nucleated RBC (Bld) [#/Vol] 0 10*3/uL Normal 0-5 [facility] Comment on above: Performed By: #### L 100.0100, L500.4050, L501.2450 #### [facility] [address] [place], [address] Platelet mean volume (Bld) [Entitic vol] 11.3 fL Normal 6.2-12.0 [facility] Comment on above: Performed By: #### L 100.0100, L500.4050, L501.2450 #### [facility] [address] [place], [address] Platelets (Bld) [#/Vol] 377 10*3/uL Normal 150-450 [facility] Comment on above: Performed By: #### L 100.0100, L500.4050, L501.2450 #### [facility] [address] [place], [address] RBC (Bld) [#/Vol] 4.44 10*6/uL Normal 4.2-5.4 [facility] Comment on above: Performed By: #### L 100.0100, L500.4050, L501.2450 #### [facility] [address] [place], [address] RDW SD 43.0 fl Normal 35.1-43.9 [facility] Comment on above: Performed By: #### L 100.0100, L500.4050, L501.2450 #### [facility] [address] [place], [address] WBC (Bld) [#/Vol] 10.9 10*3/uL Normal 4.4-11.0 [facility] Comment on above: Performed By: #### L 100.0100, L500.4050, L501.2450 #### [facility] [address] [place], [address] Comprehensive Metabolic Prof ilon 03-01-2024 Albumin [Mass/Vol] 3.5 g/dL Normal 3.2-5.0 [facility] Comment on above: Performed By: #### L 100.0100, L500.4050, L501.2450 #### [facility] [address] [place], [address] Albumin/Globulin [Mass ratio] 0.8 {ratio} Low 0.9-2.4 [facility] Comment on above: Performed By: #### L 100.0100, L500.4050, L501.2450 #### [facility] [address] [place], [address] ALK P 91 U/L Normal 45-117 [facility] Comment on above: Performed By: #### L 100.0100, L500.4050, L501.2450 #### [facility] [address] [place], [address] ALT [Catalytic activity/Vol] 49 U/L Normal 13-56 [facility] Comment on above: Performed By: #### L 100.0100, L500.4050, L501.2450 #### [facility] [address] [place], [address] AST [Catalytic activity/Vol] 28 U/L Normal 15-37 [facility] Comment on above: Performed By: #### L 100.0100, L500.4050, L501.2450 #### [facility] [address] [place], [address] Bilirubin [Mass/Vol] 0.70 mg/dL Normal 0.20-1.00 [facility] Comment on above: Result Comment: For patients on eltrombopag therapy, use of Dimension [place] TBIL is not recommended. Performed By: #### L 100.0100, L500.4050, L501.2450 #### [facility] [address] [place], [address] BUN/CRE 13.6 RATIO Normal 10-20 [facility] Comment on above: Performed By: #### L 100.0100, L500.4050, L501.2450 #### [facility] [address] [place], [address] CA,Total 9.3 mg/dL Normal 8.5-10.1 [facility] Comment on above: Performed By: #### L 100.0100, L500.4050, L501.2450 #### [facility] [address] [place], [address] Chloride [Moles/Vol] 105 mmol/L Normal 98-107 [facility] Comment on above: Performed By: #### L 100.0100, L500.4050, L501.2450 #### [facility] [address] [place], [address] CO2 [Moles/Vol] 27.0 mmol/L Normal 21.0-32.0 [facility] Comment on above: Performed By: #### L 100.0100, L500.4050, L501.2450 #### [facility] [address] [place], [address] Creatinine [Mass/Vol] 0.81 mg/dL Normal 0.55-1.02 [facility] Comment on above: Result Comment: The validity of the calculated GFR GFRAA in patients over 70 years has not been determined. Clinical correlation is essential. Performed By: #### L 100.0100, L500.4050, L501.2450 #### [facility] [address] [place], [address] EST GFR - AA 93 mL/min Normal >60 [facility] Comment on above: Result Comment: Afri can Brazilian GFR Calc Performed By: #### L 100.0100, L500.4050, L501.2450 #### [facility] [address] [place], [address] GAP 6 Normal 5-15 [facility] Comment on above: Performed By: #### L 100.0100, L500.4050, L501.2450 #### [facility] [address] [place], [address] GFR/1.73 sq M.predicted among non-blacks MDRD (S/P/Bld) [Vol rate/Area] 77 mL/min/{1.73_m2} Normal >60 [facility] Comment on above: Result Comment: Non- GFR Calc Performed By: #### L 100.0100, L500.4050, L501.2450 #### [facility] [address] [place], [address] Globulin (S) [Mass/Vol] 4.3 g/dL High 2.2-4.2 [facility] Comment on above: Performed By: #### L 100.0100, L500.4050, L501.2450 #### [facility] [address] [place], [address] Glucose [Mass/Vol] 121 mg/dL High 74-106 [facility] Comment on above: Result Comment: Fast ing Glucose result from 100 to 125 mg/dL suggests IMPAIRED HOMEOSTASIS per A.D.A. criteria. Performed By: #### L 100.0100, L500.4050, L501.2450 #### [facility] [address] [place], [address] Potassium [Moles/Vol] 3.6 mmol/L Normal 3.5-5.1 [facility] Comment on above: Performed By: #### L 100.0100, L500.4050, L501.2450 #### [facility] [address] [place], [address] Sodium [Moles/Vol] 137 mmol/L Normal 136-145 [facility] Comment on above: Performed By: #### L 100.0100, L500.4050, L501.2450 #### [facility] [address] [place], [address] T PROT 7.8 g/dL Normal 6.4-8.2 [facility] Comment on above: Performed By: #### L 100.0100, L500.4050, L501.2450 #### [facility] [address] [place], [address] Urea nitrogen [Mass/Vol] 11 mg/dL Normal 7-18 [facility] Comment on above: Performed By: #### L 100.0100, L500.4050, L501.2450 #### [facility] [address] [place], [address] Lipaseon 03-01-2024 Lipase [Catalytic activity/Vol] 33 U/L Normal 13-75 [facility] Comment on above: Result Comment: Kris samano note: LIPASE revised reference range effective 22. New Lipase methodology. Expected to produce lower values than the previous assay method. NEW Reference Range: 13 - 75 U/L Performed By: #### L 100.0100, L500.4050, L501.2450 ####[facility] [address] [place], [address] Office Visiton 03-01-2024 Follow-up visit [id number] Elvis Holder 1965 F Date Provider Department Center 03/01/2024 [id number] BURLESON [facility] Family History Problem Relation Age of Onset Diabetes Mother Comments: insulin Other Mother Comments: age 62 of complications of PUD - etohism Crohn's disease Mother Alcohol abuse Mother Osteoporosis Mother Atrial fibrillation Father Comments: CHF High Blood Pressure Father Colon cancer Father 80 Comments: age 87 Family Status - Relation Status Age at Mother 62 Father 62 Level of Service:21597 [place] OFFICE/OUTPATIENT ESTABLISHED LOW MDM 20 MIN Reason for Visit and Comments: Abdominal Pain [510087] - Middle upper abdominal pain Flu Vaccine [189] - Patient has declined the flu vaccine Normal [facility] Progress Noteon 03-01-2024 Progress Note [facility] [address] [facility] [address] Dept: [phone] Dept Loc: [phone] Visit type: Established Patient Reason for Visit: Abdominal Pain (Middle upper abdominal pain ) and Flu Vaccine (Patient has declined the flu vaccine/) Assessment and Plan 1. Epigastric pain - Comprehensive metabolic panel - CBC auto differential - Lipase 2. Periumbilical pain - CT abdomen pelvis wo IV contrast Patient initially had reported epigastric pain however upon presentation to the office today she reports her pain is more centered around the umbilicus and slightly lower. She denies any urinary symptoms no vaginal discharge spotting bleeding. 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 No follow-ups on file. Subjective HPI this is a 58-year-old female with an underlying history of ulcerative colitis cholelithiasis, GERD morbid obesity with a BMI of 39 who contacted the call center yesterday for concerns of mid upper/abdominal pain that started 2 days ago. She reports that the pain is moderate to constant lasting over 2 hours she vomited once. She denies any fever chills chest pain or palpitations. Patient was a second level triage I spoke to Dr. Ceballos who okayed her to come into the office as the patient stated she does not want to go to the emergency room. 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 Does have a history of UC, tried all the meds for UC, and made her sick with severe side effects. Was seen by GI. Pain in the abdomen was severe and much more intense but today seems much less. Took emetrol, and pepto and seems to have helped. Pain started abruptly Thursday with severe intensity. Review of Systems Constitutional: Negative for chills and fever. HENT: Negative for congestion and sore throat. Respiratory: Negative for cough and shortness of breath. Cardiovascular: Negative for chest pain. Gastrointestinal: Positive for abdominal pain. Negative for abdominal distention, blood in stool, constipation, diarrhea (Chronic loose stool), nausea and vomiting. Genitourinary: Negative for difficulty urinating, dysuria, frequency, urgency, vaginal bleeding, vaginal discharge and vaginal pain. Musculoskeletal: Negative for back pain. Neurological: Negative for dizziness and light-headedness. All other systems reviewed and are negative. Allergies Allergen Reactions Acetaminophen Gadolinium Dizziness Nausea Latex Itching Swelling redness Oxycodone Itching Sulfa Antibiotics Nausea Only Other reaction(s): Leukocytosis (elevated number Outpatient Medications Prior to Visit Medication Sig Dispense Refill allopurinol (Zyloprim) 100 MG tablet Take 1 tablet (100 mg) by mouth daily. 30 tablet 5 calcium carbonate 1500 (600 Ca) MG tablet Take by mouth. cholecalciferol (D3-5) 5,000 Units tablet Cyanocobalamin (VITAMIN B 12 PO) Take by mouth. ferrous sulfate 325 (65 Fe) MG tablet Take 325 mg by mouth. folic acid (Folvite) 1 MG tablet LACTOBACILLUS PROBIOTIC PO Take by mouth. Potassium 99 MG tablet Take by mouth. therapeutic multivitamin-minerals (Theragran-M) tablet Take 1 tablet by mouth daily. traZODone (Desyrel) 50 MG tablet Take 1 tablet (50 mg) by mouth Nightly as needed for sleep. 30 tablet 3 triamcinolone (Kenalog) 0.5 % cream Apply topically 2 times daily. 30 g 2 No facility-administered medications prior to visit. Past Medical History: Diagnosis Date Allergic rhinitis stopped immunotherapy 2005 Breast cancer screening 04/2020 Dr. Fraga Cholelithiasis relatively asx Eczema Encounter for gynecological examination Dr. Medrano/Renard Family history of diabetes mellitus mother H/O colonoscopy 01/2020 Friend- due 02/11 History of Clostridioides difficile infection 2018 ? 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 Lupillo FORRESTER pending Social History Tobacco Use Smoking status: Former Current packs/day: 0.00 Types: Cigarettes Quit date: 10/31/1994 Years since quittin.3 Smokeless tobacco: Never Substance Use Topics Alcohol use: Not Currently Past Surgical History: Procedure Laterality Date ANKLE FRACTURE SURGERY Right 01/2011 ORIF COLONOSC (more content not included)... [facility] 36on 02-29-2024 36 S: Patient called [facility] clinical access center with complaint of middle upper abdominal pain B: started yesterday A: Pt complains of pain that is moderate and constant lasting over 2 hours. She vomited one yesterday-none today. Denies fever, chest pain, green bile. She denies prior history of this complaint. R:Patient doesn't want to go to ER-I had advised her to go. I called the office and spoke with Dr Ceballos. He reviewed her health history and she has gallstones and has not had her gall bladder removed. He said this is most likely the cause. He said she can be seen tomorrow with Bjorn Tejada in a 20 minute visit. He advised she only drink/sip clear liquids for 24 hours, such as Gatorade. She can buy Emetrol over the counter, follow package directions. I gave the patient the advice from Dr Ceballos and she is scheduled for 03/01 at 10 am. Pt advised to bring photo ID, insurance card, medications with them to their visit if possible. Covid questions: 1) Do you have signs or symptoms consistent with COVID-no 2) Have you tested positive for COVID in last 10 days-no 3) Have you been exposed to Covid in the last 10 days that you are aware of -no 4) Have you traveled out of the country in the last 2 weeks-no Reason for Disposition Pain lasting > 10 minutes and over 50 years old Protocols used: Abdominal Pain - [id number]-CY [facility] 36on 02-16-2024 36 noted [facility] 36 Name of caller: Phyllis Contact phone number: [phone], option 1 Relationship to Patient: [facility] Scheduling Provider: Bjorn Tejada PA-C Practice: [facility] Chief Complaint/Reason for Call: Phyllis states another order for sleep study and PFT was received on 02/09/[address] Deleon, and that [facility] will be using this new order and will forward patient results to the office. Please be advised. Best time of day caller can be reached: Any Patient advised that office/PCP has 24-48 business hours to return their call: Yes [facility] 36on 01-14-2024 36 Faxed signed orders to number provided. [place] [id number] 01-13-2024 36 Forwarding to you, i f this needs routed else where please let me know. Normal [facility] 36 Name of caller: Deinse zazueta Contact phone number: [phone] option 1 Relationship to Patient: [facility] scheduling Provider: Reynaldo Practice: [facility] Chief Complaint/Reason for Call: Tracie with [facility] scheduling called received to orders for Sleep study with pap titration and Complete PFT pre and post bronchodilator Unable to schedule due to not having an electronic signature. They use a different system then we do. Asking for new orders with signatures and fax back to Best time of day caller can be reached: AM Patient advised that office/PCP has 24-48 business hours to return their call: N/A [facility] Bacteria identified Cx Nom ( U)on 01-07-2024 [facility] Urine culture (clean catch)o n 01-07-2024 Bacteria identified Cx Nom (U) SEE NOTE [facility] Comment on above: CULTURE, URINE, ROUTINE Micro Number: [id number] Test Status: Final Specimen Source: Urine Specimen Quality: Adequate Result: Mixed genital jaylin isolated. These superficial bacteria are not indicative of a urinary tract infection. No further organism identification is warranted on this specimen. If clinically indicated, recollect clean-catch, mid-stream urine and transfer immediately to Urine Culture Transport Tube. 29on 01-05-2024 29 Addended by: ALONSO RATLIFF on: 03/17/2024 11:53 AM Modules accepted: Orders Normal [facility] Office Visiton 01-05-2024 Follow-up visit [id number] Elvis Holder 1965 F Date Provider Department Center 01/05/2024 [id number] TEJDAA [facility] Family History Problem Relation Age of Onset Diabetes Mother Comments: insulin Other Mother Comments: age 62 of complications of PUD - etohism Crohn's disease Mother Alcohol abuse Mother Osteoporosis Mother Atrial fibrillation Father Comments: CHF High Blood Pressure Father Colon cancer Father 80 Comments: age 87 Family Status - Relation Status Age at Mother 62 Father 62 Level of Service:42830 [place] OFFICE/OUTPATIENT ESTABLISHED HIGH MDM 40 MIN Reason for Visit and Comments: Annual Exam [83] Flu Vaccine [189] - Patient has declined to receive influenza vaccine in the office. Normal [facility] Progress Noteon 01-05-2024 Progress Note - Chronic and unstab le was put on approximate 20 pounds over the last several years encouraged exercise activity and returning to [employer] increasing activity levels throughout the week will help with anxiety as well as help with sleep. Normal [facility] Progress Note - Acute unstable suspect multifactorial in nature possible stress versus GERD versus sleep apnea will use trazodone on an as-needed basis. Normal [facility] Progress Note - Chronic and stable current uric acid level 7.8 will begin allopurinol history of kidney stones and polyarthralgias. Normal [facility] Progress Note - Chronic and stable generalized and diffuse flareup requesting refill of Kenalog cream. Normal [facility] Progress Note [facility] - [address] [facility] [address] Dept: [phone] Dept Loc: [phone] Visit type: Established Patient Reason for Visit: Annual Exam and Flu Vaccine (Patient has declined to receive influenza vaccine in the office. ) Assessment and Plan 1. Hypersomnolence Comments: Acute progressive probable sleep apnea multifactorial concern for anxiety component will consider anxiolytic in the future Orders: - Complete PFT pre and post bronchodilator - Sleep study with pap titration 2. Dyspnea, unspecified type - Complete PFT pre and post bronchodilator - Sleep study with pap titration 3. Hyperuricemia Assessment & Plan: - Chronic and stable current uric acid level 7.8 will begin allopurinol history of kidney stones and polyarthralgias. Orders: - allopurinol (Zyloprim) 100 MG tablet; Take 1 tablet (100 mg) by mouth daily., Starting Thu01/05/2024, Until Thu07/03/2024, Normal 4. Urinary frequency Comments: Recent urinalysis shows leukocyte esterase and blood. Will be sent for formal culture started on Bactrim. Orders: - Urine culture (clean catch) - sulfamethoxazole-trime thoprim (Bactrim DS) 800-160 MG tablet; Take 1 tablet by mouth 2 times daily for 7 days., Starting Thu01/05/2024, Until Thu01/12/2024, Normal 5. Insomnia, unspecified type Assessment & Plan: - Acute unstable suspect multifactorial in nature possible stress versus GERD versus sleep apnea will use trazodone on an as-needed basis. Orders: - traZODone (Desyrel) 50 MG tablet; Take 1 tablet (50 mg) by mouth Nightly as needed for sleep., Starting Thu01/05/2024, Until Thu01/04/2025 at 2359, Normal 6. Eczema, unspecified type Comments: Chronic in nature both hands appears to be well controlled requesting refill of Kenalog Assessment & Plan: - Chronic and stable generalized and diffuse flareup requesting refill of Kenalog cream. Orders: - triamcinolone (Kenalog) 0.5 % cream; Apply topically 2 times daily., Starting Thu01/05/2024, Normal 7. Obesity (BMI 35.0-39.9 without comorbidity) Assessment & Plan: - Chronic and unstable was put on approximate 20 pounds over the last several years encouraged exercise activity and returning to [employer] increasing activity levels throughout the week will help with anxiety as well as help with sleep. -Time spent with the patient reviewing her medical history reviewing her medical chart discussing her concerns and developing medical care plan was 48 minutes. Follow up in about 6 months (around 07/05/2024). Subjective HPI this is a 58-year-old female with underlying history of ulcerative colitis, GERD and a history of obesity with a previous BMI of 39.2 chronic cholelithiasis and kidney stones who presents back to the office today for annual physical exam. Patient was last seen by myself in April of this year. She was also seen by telehealth visit in October for positive COVID. Patient has not had any documented laboratory studies since 2020. Concerned about breathing issues, had some breathing tests 5 years ago and found issue with vocal cords, and states breathing has become a concern enough that she scheduled follow up with pulmonology. Having horrible time sleeping up most of the night sleeping only and having severe issues with anxiety. Review most recent blood work done outside of the hospital which showed elevated white count at 14, chemistry was normal, lipids were normal, but uric acid was high at 7.8 and urine showed leukocyte esterase and blood. Encourage exercise increase exercise and activity. Encourage sleeping with pillow changing the way she sleeps as well as slight elevation of her head might help with breathing at night. Review of Systems Constitutional: Negative for chills and fever. HENT: Negative for congestion and sore throat. Respiratory: Negative for cough and shortness of breath. Cardiovascular: Negative for chest pain. Gastrointestinal: Negative for abdominal pain, diarrhea, nausea and vomiting. Genitourinary: Positive for frequency and urgency. Negative for difficulty urinating and dysuria. Musculoskeletal: Negative for back pain. Skin: Positive for rash. Eczema is flaring up Neurological: Negative for dizziness and light-headedness. Psychiatric/Behavioral : Positive for sleep disturbance. The patient is nervous/anxious. All other systems reviewed and are negative. Allergies Allergen Reactions Acetaminophen Gadolinium Dizziness Nausea Latex Itching Swelling redness Oxycodone Itching Sulfa Antibiotics Nausea Only Other reaction(s): Leukocytosis (elevated number Outpatient Medications Prior to Visit Medication Sig Dispense Refill calcium carbonate 1500 (600 Ca) MG tablet Take by mouth. cholecalciferol (D3-5) 5,000 Units tablet Cyanocobalamin (VITAMIN B 12 PO) Take b (more content not included)... Normal [facility] CBC, Employeeon 01-01-2024 Absolute Lymph 3.42 X10 3/uL Normal 0.83-4.51 [facility] Comment on above: Order Comment: Y Performed By: #### L 100.0200, L400.0100, L500.2900 ####[facility] [address] [place], [address] Absolute Neut 9.8 X10 3/uL High 2.0-7.7 [facility] Comment on above: Order Comment: Y Performed By: #### L 100.0200, L400.0100, L500.2900 ####[facility] [address] [place], [address] Basophils/100 WBC (Bld) 0.6 % Normal 0-1 [facility] Comment on above: Order Comment: Y Performed By: #### L 100.0200, L400.0100, L500.2900 ####[facility] [address] [place], [address] Eosinophils/100 WBC (Bld) 1.9 % Normal 0-5 [facility] Comment on above: Order Comment: Y Performed By: #### L 100.0200, L400.0100, L500.2900 ####[facility] [address] [place], [address] Erythrocyte distribution width (RBC) [Ratio] 12.8 % Normal 11.6-14.6 [facility] Comment on above: Order Comment: Y Performed By: #### L 100.0200, L400.0100, L500.2900 ####[facility] [address] [place], [address] Hematocrit (Bld) [Volume fraction] 41.7 % Normal 37-47 [facility] Comment on above: Order Comment: Y Performed By: #### L 100.0200, L400.0100, L500.2900 ####[facility] [address] [place], [address] Hemoglobin (Bld) [Mass/Vol] 13.5 g/dL Normal 12.0-15.0 [facility] Comment on above: Order Comment: Y Performed By: #### L 100.0200, L400.0100, L500.2900 ####[facility] [address] [place], [address] Lymphocytes/100 WBC (Bld) 23.8 % Normal 19-41 [facility] Comment on above: Order Comment: Y Performed By: #### L 100.0200, L400.0100, L500.2900 ####[facility] [address] [place], [address] MCH (RBC) [Entitic mass] 29.8 pg Normal 27.0-32.0 [facility] Comment on above: Order Comment: Y Performed By: #### L 100.0200, L400.0100, L500.2900 ####[facility] [address] [place], [address] MCHC (RBC) [Mass/Vol] 32.4 g/dL Normal 32-36 [facility] Comment on above: Order Comment: Y Performed By: #### L 100.0200, L400.0100, L500.2900 ####[facility] [address] [place], [address] MCV (RBC) [Entitic vol] 92.1 fL Normal 81-99 [facility] Comment on above: Order Comment: Y Performed By: #### L 100.0200, L400.0100, L500.2900 ####[facility] [address] [place], [address] Monocytes/100 WBC (Bld) 5.1 % Normal 0-10 [facility] Comment on above: Order Comment: Y Performed By: #### L 100.0200, L400.0100, L500.2900 ####[facility] [address] [place], [address] Neutrophils/100 WBC (Bld) 68.3 % Normal 47-70 [facility] Comment on above: Order Comment: Y Performed By: #### L 100.0200, L400.0100, L500.2900 ####[facility] [address] [place], [address] NRBC # 0.00 10 3/uL Normal 0-5 [facility] Comment on above: Order Comment: Y Performed By: #### L 100.0200, L400.0100, L500.2900 ####[facility] [address] [place], [address] Nucleated RBC (Bld) [#/Vol] 0 10*3/uL Normal 0-5 [facility] Comment on above: Order Comment: Y Performed By: #### L 100.0200, L400.0100, L500.2900 ####[facility] [address] [place], [address] Platelet mean volume (Bld) [Entitic vol] 11.9 fL Normal 6.2-12.0 [facility] Comment on above: Order Comment: Y Performed By: #### L 100.0200, L400.0100, L500.2900 ####[facility] [address] [place], [address] Platelets (Bld) [#/Vol] 371 10*3/uL Normal 150-450 [facility] Comment on above: Order Comment: Y Performed By: #### L 100.0200, L400.0100, L500.2900 ####[facility] [address] [place], [address] RBC (Bld) [#/Vol] 4.53 10*6/uL Normal 4.2-5.4 [facility] Comment on above: Order Comment: Y Performed By: #### L 100.0200, L400.0100, L500.2900 ####[facility] [address] [place], [address] RDW SD 43.1 fl Normal 35.1-43.9 [facility] Comment on above: Order Comment: Y Performed By: #### L 100.0200, L400.0100, L500.2900 ####[facility] [address] [place], [address] WBC (Bld) [#/Vol] 14.4 10*3/uL High 4.4-11.0 [facility] Comment on above: Order Comment: Y Performed By: #### L 100.0200, L400.0100, L500.2900 ####[facility] [address] [place], [address] Employee Profileon 4 Albumin [Mass/Vol] 3.5 g/dL Normal 3.2-5.0 [facility] Comment on above: Order Comment: Y Performed By: #### L 100.0200, L400.0100, L500.2900 ####[facility] [address] [place], [address] Albumin/Globulin [Mass ratio] 0.9 {ratio} Normal 0.9-2.4 [facility] Comment on above: Order Comment: Y Performed By: #### L 100.0200, L400.0100, L500.2900 ####[facility] [address] [place], [address] ALK P 94 U/L Normal 45-117 [facility] Comment on above: Order Comment: Y Performed By: #### L 100.0200, L400.0100, L500.2900 ####[facility] [address] [place], [address] ALT [Catalytic activity/Vol] 55 U/L Normal 13-56 [facility] Comment on above: Order Comment: Y Performed By: #### L 100.0200, L400.0100, L500.2900 ####[facility] [address] [place], [address] AST [Catalytic activity/Vol] 23 U/L Normal 15-37 [facility] Comment on above: Order Comment: Y Performed By: #### L 100.0200, L400.0100, L500.2900 ####[facility] [address] [place], [address] Bilirubin [Mass/Vol] 0.80 mg/dL Normal 0.20-1.00 [facility] Comment on above: Order Comment: Y Result Comment: For patients on eltrombopag therapy, use of Dimension [place] TBIL is not recommended. Performed By: #### L 100.0200, L400.0100, L500.2900 ####[facility] [address] [place], [address] Bilirubin.direct [Mass/Vol] 0.19 mg/dL Normal 0.00-0.30 [facility] Comment on above: Order Comment: Y Performed By: #### L 100.0200, L400.0100, L500.2900 ####[facility] [address] [place], [address] BUN/CRE 18.1 RATIO Normal 10-20 [facility] Comment on above: Order Comment: Y Performed By: #### L 100.0200, L400.0100, L500.2900 ####[facility] [address] [place], [address] CA,Total 8.9 mg/dL Normal 8.5-10.1 [facility] Comment on above: Order Comment: Y Performed By: #### L 100.0200, L400.0100, L500.2900 ####[facility] [address] [place], [address] Chloride [Moles/Vol] 107 mmol/L Normal 98-107 [facility] Comment on above: Order Comment: Y Performed By: #### L 100.0200, L400.0100, L500.2900 ####[facility] [address] [place], [address] CHOL:HDL 3.10 Normal [facility] Comment on above: Order Comment: Y Performed By: #### L 100.0200, L400.0100, L500.2900 ####[facility] [address] [place], [address] Cholesterol [Mass/Vol] 141 mg/dL Normal 200 [facility] Comment on above: Order Comment: Y Result Comment: <200 mg/dL Desirable 200-240 mg/dL Borderline >240 mg/dL High Risk Performed By: #### L 100.0200, L400.0100, L500.2900 ####[facility] [address] [place], [address] Cholesterol in HDL [Mass/Vol] 46 mg/dL Normal [facility] Comment on above: Order Comment: Y Result Comment: The drugs N-Acetylcysteine and Metamizole may falsely depress this assay. Reference Range HDL <40 mg/dL Low HDL Cholesterol HDL >or= 60 mg/dL High HDL Cholesterol Performed By: #### L 100.0200, L400.0100, L500.2900 ####[facility] [address] [place], [address] Cholesterol in LDL [Mass/Vol] 67 mg/dL Normal 0-130 [facility] Comment on above: Order Comment: Y Performed By: #### L 100.0200, L400.0100, L500.2900 ####[facility] [address] [place], [address] Cholesterol in VLDL [Mass/Vol] 28 mg/dL Normal 5-40 [facility] Comment on above: Order Comment: Y Performed By: #### L 100.0200, L400.0100, L500.2900 ####[facility] [address] [place], [address] CO2 [Moles/Vol] 24.0 mmol/L Normal 21.0-32.0 [facility] Comment on above: Order Comment: Y Performed By: #### L 100.0200, L400.0100, L500.2900 ####[facility] [address] [place], [address] Creatinine [Mass/Vol] 0.83 mg/dL Normal 0.55-1.02 [facility] Comment on above: Order Comment: Y Result Comment: The validity of the calculated GFR GFRAA in patients over 70 years has not been determined. Clinical correlation is essential. Performed By: #### L 100.0200, L400.0100, L500.2900 ####[facility] [address] [place], [address] EST GFR - AA 91 mL/min Normal >60 [facility] Comment on above: Order Comment: Y Result Comment: Afri can Brazilian GFR Calc Performed By: #### L 100.0200, L400.0100, L500.2900 ####[facility] [address] [place], [address] GAP 8 Normal 5-15 [facility] Comment on above: Order Comment: Y Performed By: #### L 100.0200, L400.0100, L500.2900 ####[facility] [address] [place], [address] GFR/1.73 sq M.predicted among non-blacks MDRD (S/P/Bld) [Vol rate/Area] 75 mL/min/{1.73_m2} Normal >60 [facility] Comment on above: Order Comment: Y Result Comment: Non- GFR Calc Performed By: #### L 100.0200, L400.0100, L500.2900 ####[facility] [address] [place], [address] Globulin (S) [Mass/Vol] 4.0 g/dL Normal 2.2-4.2 [facility] Comment on above: Order Comment: Y Performed By: #### L 100.0200, L400.0100, L500.2900 ####[facility] [address] [place], [address] Glucose [Mass/Vol] 110 mg/dL High 74-106 [facility] Comment on above: Order Comment: Y Result Comment: Fast ing Glucose result from 100 to 125 mg/dL suggests IMPAIRED HOMEOSTASIS per A.D.A. criteria. Performed By: #### L 100.0200, L400.0100, L500.2900 ####[facility] [address] [place], [address] LDH 104 U/L Normal 84-246 [facility] Comment on above: Order Comment: Y Performed By: #### L 100.0200, L400.0100, L500.2900 ####[facility] [address] [place], [address] Phosphate [Mass/Vol] 3.4 mg/dL Normal 2.5-4.9 [facility] Comment on above: Order Comment: Y Performed By: #### L 100.0200, L400.0100, L500.2900 ####[facility] [address] [place], [address] Potassium [Moles/Vol] 3.8 mmol/L Normal 3.5-5.1 [facility] Comment on above: Order Comment: Y Performed By: #### L 100.0200, L400.0100, L500.2900 ####[facility] [address] [place], [address] Sodium [Moles/Vol] 139 mmol/L Normal 136-145 [facility] Comment on above: Order Comment: Y Performed By: #### L 100.0200, L400.0100, L500.2900 ####[facility] [address] [place], [address] T PROT 7.5 g/dL Normal 6.4-8.2 [facility] Comment on above: Order Comment: Y Performed By: #### L 100.0200, L400.0100, L500.2900 ####[facility] [address] [place], [address] Triglyceride [Mass/Vol] 139 mg/dL Normal [facility] Comment on above: Order Comment: Y Result Comment: The drugs N-Acetylcysteine and Metamizole may falsely depress this assay. Serum Triglycerides Reference Interval Normal <150 mg/dL Borderline high 150 - 199 mg/dL High 200 - 499 mg/dL Very High > or = 500 mg/dL Performed By: #### L 100.0200, L400.0100, L500.2900 ####[facility] [address] [place], [address] Urea nitrogen [Mass/Vol] 15 mg/dL Normal 7-18 [facility] Comment on above: Order Comment: Y Performed By: #### L 100.0200, L400.0100, L500.2900 ####[facility] [address] [place], [address] URIC 7.8 mg/dL High 2.6-6.0 [facility] Comment on above: Order Comment: Y Result Comment: The drugs N-Acetylcysteine and Metamizole may falsely depress this assay. Performed By: #### L 100.0200, L400.0100, L500.2900 ####[facility] [address] [place], [address] Urinalysis, Employeeon 12-31 BILIRUBIN URINE Negative Normal Negative [facility] Comment on above: Order Comment: Mita zazueta, Random Performed By: #### L 100.0200, L400.0100, L500.2900 ####[facility] [address] [place], [address] Clarity (U) Sl. Cloudy Normal Clear [facility] Comment on above: Order Comment: Mita e, Random Performed By: #### L 100.0200, L400.0100, L500.2900 ####[facility] [address] [place], [address] Color (U) Yellow Normal Yellow [facility] Comment on above: Order Comment: Mita e, Random Performed By: #### L 100.0200, L400.0100, L500.2900 ####[facility] [address] [place], [address] GLUCOSE, UR Normal Normal Normal [facility] Comment on above: Order Comment: Mita zazueta, Random Performed By: #### L 100.0200, L400.0100, L500.2900 ####[facility] [address] [place], [address] KETONE UR Negative Normal Negative [facility] Comment on above: Order Comment: Mita zazueta, Random Performed By: #### L 100.0200, L400.0100, L500.2900 ####[facility] [address] [place], [address] LEUK ESTERASE 100 /ul Abnormal Negative [facility] Comment on above: Order Comment: Mita zazueta, Random Performed By: #### L 100.0200, L400.0100, L500.2900 ####[facility] [address] [place], [address] Nitrite Ql (U) Negative Normal Negative [facility] Comment on above: Order Comment: Mita zazueta, Random Performed By: #### L 100.0200, L400.0100, L500.2900 ####[facility] [address] [place], [address] OCCULT BLOOD-UR 50 /ul Abnormal Negative [facility] Comment on above: Order Comment: Mita zazueta, Random Performed By: #### L 100.0200, L400.0100, L500.2900 ####[facility] [address] [place], [address] pH UR 6.0 Normal 5.0 - 8.0 [facility] Comment on above: Order Comment: Mita zazueta, Random Performed By: #### L 100.0200, L400.0100, L500.2900 ####[facility] [address] [place], [address] PROT DIPSTX Negative Normal Negative [facility] Comment on above: Order Comment: Mita zazueta, Random Performed By: #### L 100.0200, L400.0100, L500.2900 ####[facility] [address] [place], [address] SP.GR. DIPSTX 1.015 Normal 1.002-1.030 [facility] Comment on above: Order Comment: Mita zazueta, Random Performed By: #### L 100.0200, L400.0100, L500.2900 ####[facility] [address] [place], [address] UROBILI Normal Normal Normal [facility] Comment on above: Order Comment: Mita e, Random Performed By: #### L 100.0200, L400.0100, L500.2900 ####[facility] [address] [place], [address] Progress Noteon 11-10-2023 Progress Note [facility] [address] [place] [address] [address] [facility] [address] Dept: [phone] Dept Loc: [phone] Patient was identified and seen today via Telehealth by agreement and consent. I used the following Telehealth technology: Audio and video capabilities. Patient location: Patient Location: Home. This patient encounter is appropriate and reasonable under the circumstances: too sick to leave home . The patient has been advised of the potential risks and limitations of this mode of treatment (including but not limited to the absence of in-person examination) and has agreed to be treated in a remote fashion in spite of them. Any and all of the patient's/patient's family's questions on this issue have been answered and I have made no promises or guarantees to the patient. The patient has also been advised to contact this office for worsening conditions or problems, and seek emergency medical treatment and/or call 911 if the patient deems either necessary. The patient stated that they are currently in the state [facility]. If the patient is a minor, permission has been obtained by the parent or guardian for the patient to receive medical care at this visit. Assessment/Plan Diagnoses and all orders for this visit: COVID-19 (Primary) Comments: Acute onset, Paxlovid, vitamin D vitamin C and Robitussin Ulcerative colitis without complications, unspecified location ([facility]) Other orders - Nirmatrelvir&Ritonavir 300/100 (Paxlovid, 300/100,) 20 x 150 MG & 10 x 100MG tablet therapy pack; Take 3 tablets by mouth in the morning and 3 tablets in the evening. Do all this for 5 days. On the video she was alert and oriented. No acute distress. Able to speak sentences without interruption or wheezing. No pallor or cyanosis noted. No cough was evident. No follow-ups on file. Patient instructed to call with any worsening or prolonged Sore throat, cough, chest pain, shortness of breath, body aches, fever, and diarrhea. Danisha Holder is a 58 y.o. who presents on the video for a remote visit. Chief complaint: No chief complaint on file. COVID illness with mild cough, nasal congestion, and low-grade fever. HPI Patient with stable ulcerative colitis presents with 4 to 5 days of mild cough and bodyaches. Fever has resolved. No headache or confusion. No vomiting or diarrhea. Would like to consider going on Paxlovid. 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 No sense of shortness of breath or pleurisy. Has not been checking oxygen levels. Allergies Allergen Reactions Acetaminophen Gadolinium Dizziness Nausea Latex Itching Swelling redness Oxycodone Itching Sulfa Antibiotics Nausea Only Other reaction(s): Leukocytosis (elevated number [] PMH, allergies, and social history reviewed and updated as appropriate [] Medication list reviewed/updated [] Allergies reviewed/updated [] Problem list reviewed/updated [] Patient requests medication refills, see below for orders. Rolando Ceballos, DO 11/10/2023 10:34 PM [facility] 36on 11-09-2023 36 S: Patient spoke wit h [facility] nurse regarding cough and congestion, COVID positive. B: Onset of symptoms/concern: symptoms started Thursday. A: Patient states she has dry cough and nasal/sinus congestion, clear drainage. States she had fever, headache and body ache, those symptoms have resolved. Denies difficulty breathing. Denies chest pain. Patient is requesting PAXLOVID. R: Patient understands care advice for COVID symptoms. No appointments available today, offered to POD schedule for an appointment today, patient declines. MyChart video visit scheduled on 11/10/23 at 12:30PM. The type, date, provider, time of appointment were reviewed and insurance verified with the patient. Patient verbalizes understanding. No further needs at this time. Patient instructed to call back with new or worsening symptoms. Reason for Disposition HIGH RISK patient (e.g., weak immune system, age > 64 years, obesity with BMI of 30 or higher, , chronic lung disease or other chronic medical condition) and COVID symptoms (e.g., cough, fever) (Exceptions: Already seen by doctor or [facility]/PA and no new or worsening symptoms.) Protocols used: Coronavirus (COVID-19) Diagnosed [id number] Absolute lymphocyte countOrd ered By: HEALTH ASSESSMENT on 11-15-2022 Lymphocytes Auto (Unsp spec) [#/Vol] 2.97 10*3/uL 0.83-4.51 [facility] Absolute reticulocyte countO rdered By: HEALTH ASSESSMENT on 11-15-2022 Reticulocytes (Bld) [#/Vol] 0.00 10*3/uL 0-5 [facility] Basophil percentageOrdered B y: HEALTH ASSESSMENT on 11-15-2022 Basophil percentage 3.6 mg/dL 2.5-4.9 [facility] Bilirubin [Mass/Vol] 0.40 mg/dL 0.20-1.00 [facility] Comment on above: For patients on eltr ombopag therapy, use of Dimension [place] TBIL is not recommended. Chloride [Moles/Vol] 105 mmol/L 98-107 [facility] Cholesterol [Mass/Vol] 149 mg/dL <200 [facility] Comment on above: <200 mg/dL Desirable 200-240 mg/dL Borderline >240 mg/dL High Risk Glucose [Mass/Vol] 99 mg/dL 74-106 [facility] LDH [Catalytic activity/Vol] 137 U/L 84-246 [facility] Neutrophils (Bld) [#/Vol] 6.6 10*3/uL 2.0-7.7 [facility] Potassium [Moles/Vol] 4.0 mmol/L 3.5-5.1 [facility] Protein [Mass/Vol] 7.4 g/dL 6.4-8.2 [facility] Sodium [Moles/Vol] 137 mmol/L 136-145 [facility] Triglyceride [Mass/Vol] 127 mg/dL <199 [facility] Comment on above: The drugs N-Acetylcy steine and Metamizole may falsely depress this assay.Serum Triglycerides Reference Interval Normal <150 mg/dL Borderline high 150 - 199 mg/dL High 200 - 499 mg/dL Very High > or = 500 mg/dL WBC (Bld) [#/Vol] 10.6 10*3/uL 4.4-11.0 [facility] Bilirubin Test strip Ql (U)O rdered By: HEALTH ASSESSMENT on 11-15-2022 Bilirubin Ql (U) Negative Negative [facility] Blood erythrocytes count (nu mber/volume)Ordered By: HEALTH ASSESSMENT on 11-15-2022 RBC (Bld) [#/Vol] 4.22 10*6/uL 4.2-5.4 [facility] Blood hemoglobin measurement (mass/volume)Ordered By: HEALTH ASSESSMENT on 11-15-2022 Hemoglobin (Bld) [Mass/Vol] 12.6 g/dL 12.0-15.0 [facility] Blood platelet mean volumeOr dered By: HEALTH ASSESSMENT on 11-15-2022 Platelet mean volume (Bld) [Entitic vol] 12.0 fL 6.2-12.0 [facility] Determination of erythrocyte mean corpuscular volume (MCV)Ordered By: HEALTH ASSESSMENT on 11-15-2022 MCV (RBC) [Entitic vol] 94.1 fL 81-99 [facility] Direct bilirubinOrdered By: HEALTH ASSESSMENT on 11-15-2022 Bilirubin.direct [Mass/Vol] 0.09 mg/dL 0.00-0.30 [facility] Hematocrit Auto (Bld) [Volum e fraction]Ordered By: HEALTH ASSESSMENT on 11-15-2022 Hematocrit (Bld) [Volume fraction] 39.7 % 37-47 [facility] Ketones Test strip Ql (U)Ord ered By: HEALTH ASSESSMENT on 11-15-2022 Ketones Ql (U) Negative Negative [facility] Laboratory - Chemistry and C hemistry - challengeOrdered By: HEALTH ASSESSMENT on 11-15-2022 ALP [Catalytic activity/Vol] 91 U/L 45-117 [facility] ALT [Catalytic activity/Vol] 41 U/L 13-56 [facility] Cholesterol.total/Iveth sterol in HDL [Mass ratio] 3.20 {ratio} [facility] CO2 [Moles/Vol] 22.0 mmol/L 21.0-32.0 [facility] Globulin (S) [Mass/Vol] 3.9 g/dL 2.2-4.2 [facility] Urea nitrogen/Creatinine [Mass ratio] 23.1 mg/mg 10-20 [facility] Laboratory - Hematology and Cell countsOrdered By: HEALTH ASSESSMENT on 11-15-2022 Erythrocyte distribution width (RBC) [Entitic vol] 43.8 fL 35.1-43.9 [facility] Erythrocyte distribution width (RBC) [Ratio] 12.8 % 11.6-14.6 [facility] MCH (RBC) [Entitic mass] 29.9 pg 27.0-32.0 [facility] Nucleated RBC/100 WBC (Bld) [Ratio] 0 % 0-5 [facility] MCHC Auto (RBC) [Mass/Vol]Or dered By: HEALTH ASSESSMENT on 11-15-2022 MCHC (RBC) [Mass/Vol] 31.7 g/dL 32-36 [facility] Nitrite Test strip Ql (U)Ord ered By: HEALTH ASSESSMENT on 11-15-2022 Nitrite Ql (U) Negative Negative [facility] No Panel InformationOrdered By: HEALTH ASSESSMENT on 11-15-2022 Estimated GFR (MDRD) Amer 98 mL/min >60 [facility] Comment on above: GFR Calc Estimated GFR (MDRD) Non-Af Amer 81 mL/min >60 [facility] Comment on above: Non- GFR Calc Platelets bldOrdered By: FRANCISCO LT ASSESSMENT on 11-15-2022 Platelets (Bld) [#/Vol] 241 10*3/uL 150-450 [facility] Protein Test strip Ql (U)Ord ered By: HEALTH ASSESSMENT on 11-15-2022 Protein Ql (U) Negative Negative [facility] Segmented neutrophils/100 WB C Auto (Bld)Ordered By: HEALTH ASSESSMENT on 11-15-2022 Segmented neutrophils/100 WBC (Bld) 62.3 % 47-70 [facility] Serum or plasma albumin purnima urement (mass/volume)Ordered By: HEALTH ASSESSMENT on 11-15-2022 Albumin [Mass/Vol] 3.5 g/dL 3.2-5.0 [facility] Serum or plasma albumin/glob ulin mass ratioOrdered By: HEALTH ASSESSMENT on 11-15-2022 Albumin/Globulin [Mass ratio] 0.9 {ratio} 0.9-2.4 [facility] Serum or plasma calcium purnima urement (mass/volume)Ordered By: HEALTH ASSESSMENT on 11-15-2022 Calcium [Mass/Vol] 9.2 mg/dL 8.5-10.1 [facility] Serum or plasma cholesterol in HDL measurement (mass/volume)Ordered By: HEALTH ASSESSMENT on 11-15-2022 Cholesterol in HDL [Mass/Vol] 46 mg/dL >40 [facility] Comment on above: The drugs N-Acetylcy steine and Metamizole may falsely depress this assay. Reference Range HDL <40 mg/dL Low HDL Cholesterol HDL >or= 60 mg/dL High HDL Cholesterol Serum or plasma cholesterol in VLDL measurement (mass/volume)Ordered By: HEALTH ASSESSMENT on 11-15-2022 Cholesterol in VLDL [Mass/Vol] 25 mg/dL 5-40 [facility] Serum or plasma creatinine m easurement (mass/volume)Ordered By: HEALTH ASSESSMENT on 11-15-2022 Creatinine [Mass/Vol] 0.78 mg/dL 0.55-1.02 [facility] Comment on above: The validity of the calculated GFR & GFRAA in patients over 70 years has not been determined. Clinical correlation is essential. Serum or plasma low density lipoprotein (LDL) cholesterol measurement (mass/volume)Ordered By: HEALTH ASSESSMENT on 11-15-2022 Cholesterol in LDL [Mass/Vol] 78 mg/dL 0-130 [facility] Serum or plasma urea nitroge n measurement (mass/volume)Ordered By: HEALTH ASSESSMENT on 11-15-2022 Urea nitrogen [Mass/Vol] 18 mg/dL 7-18 [facility] Serum or plasma uric acid me asurement (mass/volume)Ordered By: HEALTH ASSESSMENT on 11-15-2022 Urate [Mass/Vol] 7.2 mg/dL 2.6-6.0 [facility] Comment on above: The drugs N-Acetylcy steine and Metamizole may falsely depress this assay. Thin prep Papanicolaou smear with manual screeningOrdered By: HEALTH ASSESSMENT on 11-15-2022 Thin prep Papanicolaou smear with manual screening 22 U/L 15-37 [facility] Thin prep Papanicolaou smear with manual screening 10 5-15 [facility] Urine blood detectionOrdered By: HEALTH ASSESSMENT on 11-15-2022 RBC Ql (U) 10 /ul Negative [facility] Urine clarityOrdered By: A LT ASSESSMENT on 11-15-2022 Clarity (U) Clear Clear [facility] Urine color determinationOrd ered By: HEALTH ASSESSMENT on 11-15-2022 Color (U) Yellow Yellow [facility] Urine glucose detectionOrder ed By: HEALTH ASSESSMENT on 11-15-2022 Glucose Ql (U) Normal mg/dl Normal [facility] Urine leukocyte esterase det ection by dipstickOrdered By: HEALTH ASSESSMENT on 11-15-2022 Leukocyte esterase Test strip Ql (U) Negative Negative [facility] Urine pHOrdered By: HEALTH A SSESSMENT on 11-15-2022 pH (U) 6.5 [pH] 5.0 - 8.0 [facility] Urine specific gravity measu rementOrdered By: HEALTH ASSESSMENT on 11-15-2022 Specific gravity (U) [Rel density] 1.015 1.002-1.030 [facility] Urobilinogen Auto test strip Ql (U)Ordered By: HEALTH ASSESSMENT on 11-15-2022 Urobilinogen Ql (U) Normal mg/dl Normal [facility] Laboratory - Microbiology an d Antimicrobial susceptibilityon 03-21-2022 SARS-CoV-2 (COVID-19) RNA BRISA+probe Ql (Unsp spec) Not detected [facility] Absolute lymphocyte counton 12-03-2021 Lymphocytes Auto (Unsp spec) [#/Vol] 2.53 10*3/uL 0.83-4.51 [facility] Work Phone: Absolute reticulocyte counto n 12-03-2021 Reticulocytes (Bld) [#/Vol] 0.00 10*3/uL 0-5 [facility] Work Phone: Basophil percentageon 2021 Basophil percentage 3.5 mg/dL 2.5-4.9 [facility] Work Phone: Bilirubin [Mass/Vol] 0.70 mg/dL 0.20-1.00 [facility] Work Phone: Comment on above: For patients on eltr ombopag therapy, use of Dimension [place] TBIL is not recommended. Chloride [Moles/Vol] 107 mmol/L 98-107 [facility] Work Phone: Cholesterol [Mass/Vol] 189 mg/dL <200 [facility] Work Phone: Comment on above: <200 mg/dL Desirable 200-240 mg/dL Borderline >240 mg/dL High Risk Glucose [Mass/Vol] 99 mg/dL 74-106 [facility] Work Phone: [phone] Neutrophils (Bld) [#/Vol] 4.6 10*3/uL 2.0-7.7 [facility] Work Phone: Potassium [Moles/Vol] 4.1 mmol/L 3.5-5.1 [facility] Work Phone: Protein [Mass/Vol] 7.7 g/dL 6.4-8.2 [facility] Work Phone: Sodium [Moles/Vol] 139 mmol/L 136-145 [facility] Work Phone: Triglyceride [Mass/Vol] 107 mg/dL <199 [facility] Work Phone: Comment on above: The drugs N-Acetylcy steine and Metamizole may falsely depress this assay.Serum Triglycerides Reference Interval Normal <150 mg/dL Borderline high 150 - 199 mg/dL High 200 - 499 mg/dL Very High > or = 500 mg/dL WBC (Bld) [#/Vol] 7.9 10*3/uL 4.4-11.0 [facility] Work Phone: Bilirubin Test strip Ql (U)o n 12-03-2021 Bilirubin Ql (U) Negative Negative [facility] Work Phone: Blood erythrocytes count (nu mber/volume)on 12-03-2021 RBC (Bld) [#/Vol] 4.23 10*6/uL 4.2-5.4 [facility] Work Phone: Blood hemoglobin measurement (mass/volume)on 12-03-2021 Hemoglobin (Bld) [Mass/Vol] 13.0 g/dL 12.0-15.0 [facility] Work Phone: [phone] Blood platelet mean volumeon 12-03-2021 Platelet mean volume (Bld) [Entitic vol] 11.3 fL 6.2-12.0 [facility] Work Phone: Determination of erythrocyte mean corpuscular volume (MCV)on 12-03-2021 MCV (RBC) [Entitic vol] 94.8 fL 81-99 [facility] Work Phone: Direct bilirubinon Bilirubin.direct [Mass/Vol] 0.14 mg/dL 0.00-0.30 [facility] Work Phone: Hematocrit Auto (Bld) [Volum e fraction]on 12-03-2021 Hematocrit (Bld) [Volume fraction] 40.1 % 37-47 [facility] Work Phone: Ketones Test strip Ql (U)on 12-03-2021 Ketones Ql (U) Negative Negative [facility] Work Phone: [phone] Laboratory - Chemistry and C hemistry - challengeon 12-03-2021 ALP [Catalytic activity/Vol] 94 U/L 45-117 [facility] Work Phone: ALT [Catalytic activity/Vol] 36 U/L 13-56 [facility] Work Phone: [phone] Cholesterol.total/Iveth sterol in HDL [Mass ratio] 2.90 {ratio} [facility] Work Phone: CO2 [Moles/Vol] 25.0 mmol/L 21.0-32.0 [facility] Work Phone: Globulin (S) [Mass/Vol] 3.8 g/dL 2.2-4.2 [facility] Work Phone: Urea nitrogen/Creatinine [Mass ratio] 22.4 mg/mg 10-20 [facility] Work Phone: Laboratory - Hematology and Cell countson 12-03-2021 Erythrocyte distribution width (RBC) [Entitic vol] 42.6 fL 35.1-43.9 [facility] Work Phone: Erythrocyte distribution width (RBC) [Ratio] 12.3 % 11.6-14.6 [facility] Work Phone: MCH (RBC) [Entitic mass] 30.7 pg 27.0-32.0 [facility] Work Phone: Nucleated RBC/100 WBC (Bld) [Ratio] 0 % 0-5 [facility] Work Phone: MCHC Auto (RBC) [Mass/Vol]on 12-03-2021 MCHC (RBC) [Mass/Vol] 32.4 g/dL 32-36 [facility] Work Phone: Nitrite Test strip Ql (U)on 12-03-2021 Nitrite Ql (U) Negative Negative [facility] Work Phone: No Panel Informationon 12-03 Estimated GFR (MDRD) Amer 101 mL/min >60 [facility] Work Phone: Comment on above: GFR Calc Estimated GFR (MDRD) Non-Af Amer 84 mL/min >60 [facility] Work Phone: Comment on above: Non- GFR Calc Platelets bldon 12-03-2021 Platelets (Bld) [#/Vol] 344 10*3/uL 150-450 [facility] Work Phone: Protein Test strip Ql (U)on 12-03-2021 Protein Ql (U) Negative Negative [facility] Work Phone: Segmented neutrophils/100 WB C Auto (Bld)on 12-03-2021 Segmented neutrophils/100 WBC (Bld) 58.0 % 47-70 [facility] Work Phone: Serum or plasma albumin purnima urement (mass/volume)on 12-03-2021 Albumin [Mass/Vol] 3.9 g/dL 3.2-5.0 [facility] Work Phone: Serum or plasma albumin/glob ulin mass ratioon 12-03-2021 Albumin/Globulin [Mass ratio] 1.0 {ratio} 0.9-2.4 [facility] Work Phone: Serum or plasma calcium purnima urement (mass/volume)on 12-03-2021 Calcium [Mass/Vol] 9.6 mg/dL 8.5-10.1 [facility] Work Phone: Serum or plasma cholesterol in HDL measurement (mass/volume)on 12-03-2021 Cholesterol in HDL [Mass/Vol] 66 mg/dL >40 [facility] Work Phone: Comment on above: The drugs N-Acetylcy steine and Metamizole may falsely depress this assay. Reference Range HDL <40 mg/dL Low HDL Cholesterol HDL >or= 60 mg/dL High HDL Cholesterol Serum or plasma cholesterol in VLDL measurement (mass/volume)on 12-03-2021 Cholesterol in VLDL [Mass/Vol] 21 mg/dL 5-40 [facility] Work Phone: Serum or plasma creatinine m easurement (mass/volume)on 12-03-2021 Creatinine [Mass/Vol] 0.76 mg/dL 0.55-1.02 [facility] Work Phone: Comment on above: The validity of the calculated GFR & GFRAA in patients over 70 years has not been determined. Clinical correlation is essential. Serum or plasma low density lipoprotein (LDL) cholesterol measurement (mass/volume)on 12-03-2021 Cholesterol in LDL [Mass/Vol] 102 mg/dL 0-130 [facility] Work Phone: Serum or plasma urea nitroge n measurement (mass/volume)on 12-03-2021 Urea nitrogen [Mass/Vol] 17 mg/dL 7-18 [facility] Work Phone: Serum or plasma uric acid me asurement (mass/volume)on 12-03-2021 Urate [Mass/Vol] 6.0 mg/dL 2.6-6.0 [facility] Work Phone: Comment on above: The drugs N-Acetylcy steine and Metamizole may falsely depress this assay. Thin prep Papanicolaou smear with manual screeningon 12-03-2021 Thin prep Papanicolaou smear with manual screening 16 U/L 15-37 [facility] Work Phone: Thin prep Papanicolaou smear with manual screening 7 5-15 [facility] Work Phone: Thin prep Papanicolaou smear with manual screening 93 U/L 84-246 [facility] Work Phone: Urine blood detectionon 11-21 RBC Ql (U) 10 /ul Negative [facility] Work Phone: Urine clarityon 12-03-2021 Clarity (U) Sl. Cloudy Clear [facility] Work Phone: Urine color determinationon 12-03-2021 Color (U) Yellow Yellow [facility] Work Phone: Urine glucose detectionon Glucose Ql (U) Normal mg/dl Normal [facility] Work Phone: Urine leukocyte esterase det ection by dipstickon 12-03-2021 Leukocyte esterase Test strip Ql (U) 100 /ul Negative [facility] Work Phone: Urine pHon 12-03-2021 pH (U) 6.5 [pH] 5.0 - 8.0 [facility] Work Phone: Urine specific gravity measu rementon 12-03-2021 Specific gravity (U) [Rel density] 1.015 1.002-1.030 [facility] Work Phone: Urobilinogen Auto test strip Ql (U)on 12-03-2021 Urobilinogen Ql (U) Normal mg/dl Normal [facility] Work Phone: Copperon 02-15-2021 Copper 135 ug/dL Normal 85-155 [facility] Comment on above: Result Comment: This test was developed and its performance characteristics determined by [facility] [place] ([facility]). It has not been cleared or approved by the FDA. [facility] is regulated under CLIA as qualified to perform high complexity testing. This test is used for clinical purposes. It should not be regarded as investigational or for research. Performed By: #### I FESC, EVIT, COPPER, B1WB #### [place] [id number] [place] [phone] #### [id number] #### [facility] [address], [place] [id number] RAYMON Screen, Serumon 02-16-20 21 MPA Result No M protein is identified. Normal No M protein is identified. [facility] Comment on above: Performed By: #### I FESC, EVIT, COPPER, B1WB #### [place] [id number] [place] [phone] #### [email or web address] #### [facility] [address], [place] [id number] Staff Review Reviewed by Amanda Arzate MD ([id number]) Normal [facility] Comment on above: Performed By: #### I FESC, EVIT, COPPER, B1WB #### [place] [address] [place] [phone] #### [email or web address] #### [facility] [address], [place] [id number] Vitamin B1, Whole Blon 02-15 Vitamin B1 (TDP), WB 295.3 nmol/L High 84.0-213.0 [facility] Comment on above: Result Comment: This assay measures the concentration of thiamine diphosphate (TDP), the primary active form of vitamin B1. Approximately 90 percent of vitamin B1 present in whole blood is TDP. Thiamine and thiamine monophosphate, which comprise the remaining 10 percent, are not measured. This test was developed and its performance characteristics determined by [facility] [place] ([facility]). It has not been cleared or approved by the FDA. [facility] is regulated under CLIA as qualified to perform high complexity testing. This test is used for clinical purposes. It should not be regarded as investigational or for research. Performed By: #### I FESC, EVIT, COPPER, B1WB #### [address] [place], [place] [address] #### [id number] #### [address] [address] Vitamin B6 Plasmaon 02-16-20 21 Vitamin B6 Plasma 205.4 nmol/L High 20.0-125.0 [facility] Comment on above: Result Comment: (NOT E) INTERPRETIVE INFORMATION: Vitamin B6 (Pyridoxal 5-Phosphate) Pyridoxal 5'-phosphate measured in a specimen collected following an 8-hour or overnight fast accurately indicates vitamin B6 nutritional status. Non-fasting specimen concentration reflects recent vitamin intake. This test was developed and its performance characteristics determined by [facility]. It has not been cleared or approved by the [place] Food and Drug Administration. This test was performed in a CLIA certified laboratory and is intended for clinical purposes. Performed By: [facility] [address] [place] [id number] Roller Coaster Engineer: Deborah Hernandez MD Performed By: #### I FESC, EVIT, COPPER, B1WB #### [facility] [address] [place], [place] [address] #### VITB6 #### [address] [id number] Vitamin Levi 02-15-2021 Vitamin E-alpha 10.8 mg/L Normal 6.0-23.0 [facility] Comment on above: Performed By: #### I FESC, EVIT, COPPER, B1WB #### [facility] [address] [place], [place] [address] #### [email or web address] #### [facility] [address] [place] [address] Vitamin E-gamma 0.9 mg/L Normal 0.3-3.2 [facility] Comment on above: Result Comment: This test was developed and its performance characteristics determined by [facility] [place] ([facility]). It has not been cleared or approved by the FDA. [facility] is regulated under CLIA as qualified to perform high complexity testing. This test is used for clinical purposes. It should not be regarded as investigational or for research. Performed By: #### I FESC, EVIT, COPPER, B1WB #### [facility] [address] [place], [place] [address] #### [email or web address] #### [facility] [address] [place] [address] CNCOon 01-09-2021 CNCO Letter Text Normal [facility] CNOVon 01-09-2021 CNOV Office Visit (NENMMN ) JEN HOLDER ([id number]) 1965 F Date Time Provider Department 01/09/21 8:00 AM ALONSO ARGUELLES During your visit today, we recorded the following information about you: Pulse Blood pressure Weight Height 94/minute 127/73 93.9 kg 1.676 m Alonso Arguelles MD 01/09/2021 8:46 AM Signed Referring Physician: SELF CC: possible neuropathy HPI: Jen Holder is a 55 year-old right-handed woman who comes to clinic today regarding possible neuropathy. She reports in about 2018 she noted some loss of sensation, stinging, burning and pins and needles in both feet, mostly in toes. This got more intense over time and socks were hard to wear. She had no specific gait problems or weakness. No symptoms above the ankles. 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 She reports that she recently was advised by GI locally that sulfasalazine (started 2019 but on other similar medication) may have altered folate levels causing neuropathy. She started a folate 2mg supplement 2 weeks ago and this seems to have improved her symptoms. She will decrease to 1mg this week. Prior Studies: Labs: normal: TSH, T3, T4, HbA1c 5.4, B12 641, Vit D abnormal: none ROS: CONSTITUTIONAL: No reported fevers, chills, night sweats, or significant unintentional weight loss. EYES: No visual changes indicated. No eye pain or orbital swelling reported. HEENT: No hearing changes or vertiginous symptoms indicated. No history of nose bleeds reported. RESPIRATORY: No reported cough, sputum, wheezing . Chronic dyspnea related to vocal cord dyskinesia. . CARDIOVASCULAR: Negative for significant chest pain, and palpitations per report. GI: Negative for significant abdominal discomfort, blood in stools or black stools reported. No recent reported change in bowel habits. : No reported history of incontinence. No dark/cola colored urine reported. MUSCLOSKELETAL: No history of significant joint pain or swelling. Positive myalgias related to leg cramps which awaken her - better with K+ supplement. SKIN: Eczema at baseline. Usus triamcinolone. HEMATOLOGY/ONCOLOGY: Negative for reported prolonged bleeding, bruising easily, and swollen nodes. ENDOCRINE: Negative for reported significant cold or heat intolerance, no reported goitrous neck swelling. Positive for chronic polydipsia PSYCH: No reported depression or anxiety symptoms. NEURO: Per HPI above. Positive sleep disturbance - gets up every 3 hours to brush teeth due to dry mouth. Not relieved by Biotene. . PAST MEDICAL HISTORY Diagnosis Date - Asthma - Breathlessness on exertion - Eczema - Environmental allergies - History of Clostridioides difficile infection - Internal hemorrhoids without mention of complication - Multiple lipomas - Ulcerative colitis (HCC) recent flare up - Vocal cord dysfunction dyskinesia PAST SURGICAL HISTORY Procedure Laterality Date - COLONOS W/REM POLYP SNARE 12/27/2015 ?polyp transverse colon, random biopsies - COLONOSCOP W/ OR W/O [facility] SPEC 03/02/2012 Colonoscopy [facility] out pt repeat 2 years - COLONOSCOP W/ OR W/O [facility] SPEC 03/07/2014 Colonoscopy [facility] - COLONOSCOP W/ OR W/O [facility] SPEC 09/13/2018 Colonoscopy - EXCISION TUMOR SOFT TISSUE SHOULDER SUBQ 3+CM 03/20/2014 12cm - right shoulder - PAST SURGICAL HISTORY OF 2010 broken right ankle - PAST SURGICAL HISTORY OF 2002 sinus surgery - PAST SURGICAL HISTORY OF hysterectomy - PAST SURGICAL HISTORY OF cystoscopy FAMILY HISTORY Problem Relation Age of Onset - Diabetes Mother crohns disease/ulverative colitis - Alcohol/Drug Mother - Allergies Mother - Hypertension Mother - Pancreatitis Mother - Colon Cancer Father IBS - Allergies Father - Heart Father - Hypertension Father - Stroke Father - Alzheimer's Disease Maternal Grandfather - Asthma Son allergies/ eczema - Anesthesia Problems No Family History - Early No Family History Social History Tobacco Use - Smoking status: Former Smoker Types: Cigarettes Quit date: 1993 Years since quittin.8 - Smokeless tobacco: Never Used Substance Use Topics - Alcohol use: Not Currently - Drug use: Not Currently Physical Examination: BP 127/73 Pulse 94 Ht 167.6 cm (5' 6) Wt 93.9 kg (207 lb) LMP 01/10/2016 BMI 33.41 kg/m? General: NAD, well-appearing HEENT: NCAT Neck: supple, no lymphadenopathy, no thyromegaly, no carotid bruits bilaterally Heart: RRR S1S2 Lungs: CTA Bilat, good effort Abd: soft, NT, ND, +BS Vascular: 2+ radial and DP pulses, no peripheral edema Musculoskeletal: joints NT, nl ROM, no paraspinal tenderness Neurologic examination: MS: alert and responsive, language intact CN: PERRLA, EOMI, VFF, V1-V3 intact bilaterally, face symmetrical, he (more content not included)... Normal [facility] C-Reactive Proteinon 021 C-Reactive Protein 1.0 mg/dL High <0.9 [facility] Comment on above: Performed By: #### C RP, VITD, CMP, CBCDIF #### [facility] [address] [place], [place] [address] CBC and Differentialon 06-22 Abs Baso 0.08 k/uL Normal <0.11 [facility] Comment on above: Performed By: #### C RP, VITD, CMP, CBCDIF #### [place] [id number] [place] [address] Abs Allen 0.74 k/uL Normal <0.87 [facility] Comment on above: Performed By: #### C RP, VITD, CMP, CBCDIF #### [place] [address] Abs Neut 5.91 k/uL Normal 1.45-7.50 [facility] Comment on above: Performed By: #### C RP, VITD, CMP, CBCDIF #### [place] [phone] Absolute nRBC <0.01 Normal <0.01 [facility] Comment on above: Performed By: #### C RP, VITD, CMP, CBCDIF #### [place] [phone] Basophils/100 WBC (Bld) 0.9 % Normal C [facility] Comment on above: Performed By: #### C RP, VITD, CMP, CBCDIF #### [place] [address] DTYPE Auto Diff Normal [facility] Comment on above: Performed By: #### C RP, VITD, CMP, CBCDIF #### [place] [phone] Eosinophils (Bld) [#/Vol] 0.20 10*3/uL Normal <0.46 [facility] Comment on above: Performed By: #### C RP, VITD, CMP, CBCDIF #### [place] [address] Eosinophils/100 WBC (Bld) 2.2 % Normal [facility] Comment on above: Performed By: #### C RP, VITD, CMP, CBCDIF #### [facility] [address] [address] Erythrocyte distribution width (RBC) [Ratio] 12.3 % Normal 11.5-15.0 [facility] Comment on above: Performed By: #### C RP, VITD, CMP, CBCDIF #### [place] [id number] [place] [address] Hematocrit (Bld) [Volume fraction] 38.6 % Normal 36.0-46.0 [facility] Comment on above: Performed By: #### C RP, VITD, CMP, CBCDIF #### [place] [phone] [place] [phone] Hemoglobin (Bld) [Mass/Vol] 12.0 g/dL Normal 11.5-15.5 [facility] Comment on above: Performed By: #### C RP, VITD, CMP, CBCDIF #### [place] [address] Lymphocytes (Bld) [#/Vol] 2.32 10*3/uL Normal 1.00-4.00 [facility] Comment on above: Performed By: #### C RP, VITD, CMP, CBCDIF #### [place] [phone] [place] [address] Lymphocytes/100 WBC (Bld) 25.1 % Normal [facility] Comment on above: Performed By: #### C RP, VITD, CMP, CBCDIF #### [facility] [address] [place] [address] MCH 29.6 pG Normal 26.0-34.0 [facility] Comment on above: Performed By: #### C RP, VITD, CMP, CBCDIF #### [facility] [address] [place] [address] MCHC (RBC) [Mass/Vol] 31.1 g/dL Normal 30.5-36.0 [facility] Comment on above: Performed By: #### C RP, VITD, CMP, CBCDIF #### [facility] [address] [place], [place] [address] MCV (RBC) [Entitic vol] 95.1 fL Normal 80.0-100.0 [facility] Comment on above: Performed By: #### C RP, VITD, CMP, CBCDIF #### [place] [phone] [place] [address] Monocytes/100 WBC (Bld) 8.0 % Normal [facility] Comment on above: Performed By: #### C RP, VITD, CMP, CBCDIF #### [place] [address] Neutrophils/100 WBC (Bld) 63.8 % Normal [facility] Comment on above: Performed By: #### C RP, VITD, CMP, CBCDIF #### [place] [phone] [place] [address] NRBCs 0.0 /100 WBC Normal 0 [facility] Comment on above: Performed By: #### C RP, VITD, CMP, CBCDIF #### [place] [phone] [place] [phone] Platelet mean volume (Bld) [Entitic vol] 11.6 fL Normal 9.0-12.7 [facility] Comment on above: Performed By: #### C RP, VITD, CMP, CBCDIF #### [facility] [address] [place] [phone] Platelets (Bld) [#/Vol] 373 10*3/uL Normal 150-400 [facility] Comment on above: Performed By: #### C RP, VITD, CMP, CBCDIF #### [place] [phone] [place] [address] RBC (Bld) [#/Vol] 4.06 10*6/uL Normal 3.90-5.20 [facility] Comment on above: Performed By: #### C RP, VITD, CMP, CBCDIF #### [facility] [address] [place], [place] [phone] WBC (Bld) [#/Vol] 9.25 10*3/uL Normal 3.70-11.00 [facility] Comment on above: Performed By: #### C RP, VITD, CMP, CBCDIF #### [facility] [address] [place], [place] [address] CNOVon 06-22-2020 CNOV Office Visit (LUIS ) JEN HOLDER ([id number]) 1965 F Date Time Provider Department 06/22/20 4:00 PM ZHEN BAINS During your visit today, we recorded the following information about you: Weight Height 106 kg 1.676 m Lizz Faustin Naveed 06/22/2020 3:11 PM Signed [facility] RADIOLOGY FACTS LAB HOURS: Lab is open 7:30am to 6pm -, and open 8am -12pm on Saturdays RADIOLOGY HOURS: Thursday- 7:00 am-6:00 pm, Thursday 7:30 am- 5 pm. Lab Orders 365 days after they are entered. If your lab orders , you may be required to wait in the lab while they are reinstated STANDING ORDERS are recurring orders with an expiration date. The interval will indicate how often the test should be completed. FASTING LAB means nothing to eat or drink (except water) 10-12 hours before your blood is drawn. CT/MRI/IVP If you have one of these radiology exams ordered along with blood work, please complete the blood work at least one day prior to the scheduled exam. EXPRESS CARE HOURS [facility] EXPRESS CARE: Thursday through Thursday 6:00am to 9:00pm. Thursday and Thursday 8:00am to 4:00pm. The walk in clinic is for patients 2 years and older. [facility]: Thursday through Thursday 8:00am to 8:00pm. Thursday and Thursday 8:00am to 4:00pm. The walk in clinic is for patients 2 years and older. [facility] WALK IN MAMMOGRAM HOURS Thursday-Thursday 3:00pm- 7:00 pm Thursday 8:00 am- 12:00 pm For Express Care LOCATIONS, HOURS OF OPERATION and CURRENT WAIT TIMES, visit the following link [email or web address] for details. My Chart Schedule My Appointment enables you to view your established primary care provider's open schedule and book an appointment online in real-time. This feature is available in internal medicine, family medicine, or pediatrics at any of our [facility] locations and main campus. Zhen Bains MD 06/22/2020 3:24 PM Signed FOLLOW-UP HISTORY: Follow up with left sided UC. She has been off Rowasa and steroids for months. She continues on AZA 1 gram TID. She feels great with no symptoms. She finished hep A/B vaccines. She got her COVID vaccines She needs shingles vaccine. She will check with her PCP. She takes Ca and Vit D. CURRENT OUTPATIENT MEDICATIONS mesalamine (ROWASA) 4 gram/60 mL enema 60 mL by RECTAL route at bedtime as needed. sulfaSALAzine (AZULFIDINE) 500 mg tablet Take 2 tablets by mouth three times daily. predniSONE (DELTASONE) 10 mg tablet Take 1 tablet by mouth once daily. triamcinolone acetonide (KENALOG) 0.5 % cream Apply to affected area three times daily as needed. calcium carbonate (CALCIUM 500 ORAL) Take by mouth once daily. Lactobacillus acidophilus (PROBIOTIC ORAL) Take by mouth once daily. POTASSIUM-99 ORAL Take by mouth once daily. ferrous sulfate (IRON ORAL) Take 28 mg by mouth once daily. COMPOUNDED PRESCRIPTION sulfurzyme 1.8g daily MULTI-VITAMIN ORAL Take by mouth once daily. ALLERGIES: Latex, Natural Rubber and Percocet [Oxycodone-Acetaminoph en] PHYSICAL EXAMINATION: Ht 167.6 cm (5' 6) Wt 106 kg (233 lb 9.6 oz) LMP 01/10/2016 BMI 37.70 kg/m? General Appearance: alert, oriented x 3, pleasant and in no acute distress Oropharynx:Lips, tongue, and oral mucosa normal. There is no thrush or oral ulcers.. Lungs: breath sounds clear to auscultation bilaterally, no crackles, rhonchi, or wheezes Heart: regular rate and rhythm, no murmurs or gallops Abdomen: not distended, normal bowel sounds, soft and depressible, no guarding or rebound, no palpable mass, no organomegaly Extremities: no cyanosis or edema Skin: no jaundice, no spider angiomas, no palmar erythema Lymph: No cervical, axillary, supraclavicular, or inguinal adenopathy. IMPRESSION: 1. Left sided UC PLAN: 1. Shingles vaccine when she can 2. CBC, CMP, CRP, Vit D 3. Continue AZA as is 4. Follow up in 6 months. STAFF PHYSICIAN Zhen Bains MD Referring Provider: ROLANDO CEBALLOS [[id number]] Allergies As of Date: 06/22/2020 Noted Allergy Reaction LATEX, NATURAL RUBBER 12/23/2011 7 - Swelling Comments: itching/redness PERCOCET (OXYCODONE-ACETAMINOPH EN)03/11/2016 9 - Itching Date Reviewed: 06/22/2020 Reviewed by: Lizz Faustin Ma - Fully Assessed Reason for Visit: Established Patient [175] Primary Visit Diagnosis:Ulcerative colitis without complications, unspecified location (HCC) [K51.90] Order(s):CBC + DIFF [SQCBCDIF] Order #: [id number] FUTURE COMP METABOLIC PANEL [SQCMP] Order #: [id number] FUTURE C-REACTIVE PROTEIN (CRP) [SQCRP] Order #: [id number] FUTURE VITAMIN D 25 HYDROXY [SQVITD] Order #: [id number] FUTURE Prescriptions as of 06/22/2020 Sig: MESALAMINE 4 GRAM/60 ML ENEMA 60 mL by RECTAL route at (more content not included)... Normal [facility] Comp Metabolic Panelon 06-22 Albumin [Mass/Vol] 4.3 g/dL Normal 3.9-4.9 [facility] Comment on above: Performed By: #### C RP, VITD, CMP, CBCDIF #### [facility] [address] [place], [place] [address] ALP [Catalytic activity/Vol] 93 U/L Normal 34-123 [facility] Comment on above: Performed By: #### C RP, VITD, CMP, CBCDIF #### [facility] [address] [place], [place] [address] ALT [Catalytic activity/Vol] 40 U/L High 7-38 [facility] Comment on above: Performed By: #### C RP, VITD, CMP, CBCDIF #### [facility] [address] [place], [place] [address] Anion gap [Moles/Vol] 10 mmol/L Normal 9-18 [facility] Comment on above: Performed By: #### C RP, VITD, CMP, CBCDIF #### [facility] [address] [place], [place] [address] AST [Catalytic activity/Vol] 22 U/L Normal 13-35 [facility] Comment on above: Performed By: #### C RP, VITD, CMP, CBCDIF #### [facility] [address] [place], [place] [address] Bilirubin [Mass/Vol] 0.2 mg/dL Normal 0.2-1.3 [facility] Comment on above: Performed By: #### C RP, VITD, CMP, CBCDIF #### [facility] [address] [place], [place] [address] Calcium [Mass/Vol] 9.1 mg/dL Normal 8.5-10.2 [facility] Comment on above: Performed By: #### C RP, VITD, CMP, CBCDIF #### [facility] [address] [place] [address] Chloride [Moles/Vol] 106 mmol/L High 97-105 [facility] Comment on above: Performed By: #### C RP, VITD, CMP, CBCDIF #### [facility] [address] [place] [address] CO2 [Moles/Vol] 23 mmol/L Normal 22-30 [facility] Comment on above: Performed By: #### C RP, VITD, CMP, CBCDIF #### [place] [address] [place] [address] Creatinine [Mass/Vol] 0.75 mg/dL Normal 0.58-0.96 [facility] Comment on above: Performed By: #### C RP, VITD, CMP, CBCDIF #### [place] [address] [place] [address] eGFR- Amer. >60 Normal [facility] Comment on above: Performed By: #### C RP, VITD, CMP, CBCDIF #### [facility] [address] [place] [address] eGFR-All Other Races >60 Normal [facility] Comment on above: Result Comment: eGFR (Estimated GFR) Units of measure: mL/min/1.73 meters squared eGFR is derived from the reexpressed MDRD Study equation using the following parameters: serum creatinine, age, gender and race. The creatinine assay has been calibrated to be traceable to IDMS. An eGFR <60 mL/min/1.73m2 for >3 months is consistent with chronic kidney disease. Refer to KDOQI guidelines for clinical interpretation. In patients with unstable renal function, e.g. those with acute kidney injury, the eGFR may not accurately reflect actual GFR. Performed By: #### C RP, VITD, CMP, CBCDIF #### [facility] [address] [place] [address] Glucose [Mass/Vol] 96 mg/dL Normal 74-99 [facility] Comment on above: Result Comment: The [place] Diabetes Association (ADA) provides guidance for cutoff values for fasting glucose and random glucose. The ADA defines fasting as no caloric intake for at least 8 hours. Fasting plasma glucose results between 100 to 125 mg/dL indicate increased risk for diabetes (prediabetes). Fasting plasma glucose results greater than or equal to 126 mg/dL meet the criteria for diagnosis of diabetes. In the absence of unequivocal hyperglycemia, results should be confirmed by repeat testing. In a patient with classic symptoms of hyperglycemia or hyperglycemic crisis, random plasma glucose results greater than or equal to 200 mg/dL meet the criteria for diagnosis of diabetes. Reference: Standards of Medical Care in Diabetes 2016, [place] Diabetes Association. Diabetes Care. 2016.39(Suppl 1). Performed By: #### C RP, VITD, CMP, CBCDIF #### [facility] [address] [place] [address] Potassium [Moles/Vol] 3.9 mmol/L Normal 3.7-5.1 [facility] Comment on above: Performed By: #### C RP, VITD, CMP, CBCDIF #### [facility] [address] [place] [address] Protein [Mass/Vol] 6.6 g/dL Normal 6.3-8.0 [facility] Comment on above: Performed By: #### C RP, VITD, CMP, CBCDIF #### [facility] [address] [place] [address] Sodium [Moles/Vol] 139 mmol/L Normal 136-144 [facility] Comment on above: Performed By: #### C RP, VITD, CMP, CBCDIF #### [facility] [address] [place] [address] Urea nitrogen [Mass/Vol] 22 mg/dL High 7-21 [facility] Comment on above: Performed By: #### C RP, VITD, CMP, CBCDIF #### [facility] [address] [place] [address] Vitamin D 25 Hydroxyon 06-22 Vitamin D 25 Hydroxy 39.6 ng/mL Normal 31.0-80.0 [facility] Comment on above: Result Comment: Clas sification of 25 [place] Vitamin D status: Insufficiency/Moderate Deficiency: < or = 30 ng/mL Sufficiency/Optimal Levels: 31 to 80 ng/mL Toxicity: > 100 ng/mL Test performed by chemiluminescent immunoassay. Performed By: #### C RP, VITD, CMP, CBCDIF ####[facility] [id number] [place], [place] [phone] ANES POSTPROC EVALon ANES POSTPROC EVAL HNO ID: [id number] Author: Venkata Deleon Service: ? Author Type: Anesthesiologist Type: Anesthesia Postprocedure Evaluation Filed: 02/13/2020 10:27 AM Note Text: POST ANESTHESIA EVALUATION NOTE : 1965 Procedure Summary Date: 02/13/20 Room / Location: [place] [address] / GI Anesthesia Start: 843 Anesthesia Stop: 904 Procedure: COLONOSCOPY WITH BIOPSY (N/A Bowel Colon) Diagnosis: Ulcerative pancolitis without complication (HCC) (Ulcerative Colitis) Surgeons: Zhen Bains Responsible Provider: Venkata Deleon Anesthesia Type: MAC ASA Status: 2 Anesthesia Type: MAC Last vitals Vitals Value Taken Time BP 137/88 02/13/20 0945 Temp 36.1 ?C (97 ?F) 02/13/20 0908 Pulse 81 02/13/20 0945 Resp 17 02/13/20 0945 SpO2 98 % 02/13/20 0945 Vitals shown include unvalidated device data. Post Anesthesia Patient Status Patient Evaluation: PACU. PACU/ICU Patient Condition: stable. Anticipated Disposition: phase 2 then home. Neurological Status: aware and responsive. Pulmonary Status: breathing comfortably on room air Airway Control: returned to baseline unsupported. Cardiovascular Status: stable. Pain Management: clinically adequate - multimodal analgesia pain management approach Postoperative Hydration: acceptable. Intraoperative Events: no significant anesthesia events Post Operative Nausea/Vomiting Status: Anesthetic Observations: no significant anesthetic observations Recommendation: continue current plan of care. SIGNATURE: Venkata Deleon MD PATIENT NAME: Jen Holder DATE: February 13, 2020 TIME: 10:26 AM CSN: [id number] [facility] ANES PRE-OPon 02-13-2020 ANES PRE-OP HNO ID: [id number] Author: Venkata Deleon Service: ? Author Type: Anesthesiologist Type: Anesthesia Preprocedure Evaluation Filed: 02/13/2020 8:05 AM Note Text: ANESTHESIOLOGY DAY OF SURGERY NOTE : 1965 Procedure(s) (LRB): COLONOSCOPY (N/A) Surgeon(s): Zhen Bains Estimated body mass index is 36.57 kg/m? as calculated from the following: Height as of 02/10/20: 168.9 cm (5' 6.5). Weight as of 02/10/20: 104.3 kg (230 lb). Most recent hematocrit and potassium results: Hematocrit 41.8 08/09/2019 Potassium 4.1 08/09/2019 Relevant Problems CARDIO (+) Breathlessness on exertion PULMONARY (+) Asthma (+) Breathlessness on exertion I - PHYSICAL EVALUATION AIRWAY Patient intubated: No. Tracheostomy tube not present Mallampati: II. TM distance: >3 FB. Neck ROM: full ROM without neurological symptoms. Mouth opening: adequate. DENTAL Dental findings: teeth intact. Additional exam findings: no II - ANESTHESIA PLAN ASA Score: 2 Anesthetic Plan: MAC NPO Status: adequate Monitoring plan: standard ASA. Postoperative analgesic plan: parenteral or oral opioids and multimodal analgesia. Anesthetic Risks, Benefits, Alternatives, Personnel Discussed. Consent obtained from: patient. Patient / Surrogate agrees to blood products: blood products not planned Significant changes in the patient condition since the History and Physical, not otherwise documented in primary service progress note: no. Vitals Value Taken Time BP 156/114 02/13/20 0736 Pulse 93 02/13/20735 Resp 16 02/13/20735 Temp 36.7 ?C (98.1 ?F) 02/13/20 07 SpO2 98 % 02/13/20 07 No current facility-administered medications on file as of 02/13/2020. Outpatient Medications as of 02/13/2020 Medication Sig - predniSONE (DELTASONE) 10 mg tablet Take 1 tablet by mouth once daily. - triamcinolone acetonide (KENALOG) 0.5 % cream Apply to affected area three times daily as needed. - calcium carbonate (CALCIUM 500 ORAL) Take by mouth once daily. - Lactobacillus acidophilus (PROBIOTIC ORAL) Take by mouth once daily. - POTASSIUM-99 ORAL Take by mouth once daily. - ferrous sulfate (IRON ORAL) Take 28 mg by mouth once daily. - COMPOUNDED PRESCRIPTION sulfurzyme 1.8g daily - MULTI-VITAMIN ORAL Take by mouth once daily. I have interviewed and examined the patient. I have reviewed the medical record and/or the pre-anesthesia evaluation, pertinent labs, and test results. This contains updated information obtained within 48 hours of Surgery/Procedure. SIGNATURE: Venkata Deleon MD PATIENT NAME: Jen Holder DATE: February 13, 2020 TIME: 8:05 AM CSN: [id number] [facility] HISTORY PHYSICALon 0 HISTORY PHYSICAL HNO ID: [id number] Author: Zhen Bains Service: Gastroenterology Author Type: Physician Type: HANDP Filed: 02/13/2020 7:45 AM Note Text: PROCEDURAL SEDATION HISTORY AND PHYSICAL EXAM SERVICE DATE: 02/13/2020 SERVICE TIME: 7:45 AM Subjective HPI: This is a 54 year old female who presents with UC PAST ANESTHESIA HISTORY: No history of adverse event PAST MEDICAL HISTORY Diagnosis Date - Asthma - Breathlessness on exertion - Eczema - Environmental allergies - History of Clostridioides difficile infection - Internal hemorrhoids without mention of complication - Multiple lipomas - Ulcerative colitis (HCC) recent flare up PAST SURGICAL HISTORY Procedure Laterality Date - COLONOS W/REM POLYP SNARE 12/27/15 ?polyp transverse colon, random biopsies - COLONOSCOP W/ OR W/O [facility] SPEC 03/02/12 Colonoscopy [facility] out pt repeat 2 years - COLONOSCOP W/ OR W/O [facility] SPEC 03/07/14 Colonoscopy [facility] - COLONOSCOP W/ OR W/O [facility] SPEC 09/13/2018 Colonoscopy - EXCISION TUMOR SOFT TISSUE SHOULDER SUBQ 3+CM 03/20/14 12cm - right shoulder - PAST SURGICAL HISTORY OF 2000 broken right ankle - PAST SURGICAL HISTORY OF 2002 sinus surgery - PAST SURGICAL HISTORY OF hysterectomy - PAST SURGICAL HISTORY OF cystoscopy Prior to Admission medications as of 02/10/20 1612 Medication Sig Last Dose Taking predniSONE (DELTASONE) 10 mg tablet Take 1 tablet by mouth once daily. triamcinolone acetonide (KENALOG) 0.5 % cream Apply to affected area three times daily as needed. calcium carbonate (CALCIUM 500 ORAL) Take by mouth once daily. Lactobacillus acidophilus (PROBIOTIC ORAL) Take by mouth once daily. POTASSIUM-99 ORAL Take by mouth once daily. ferrous sulfate (IRON ORAL) Take 28 mg by mouth once daily. COMPOUNDED PRESCRIPTION sulfurzyme 1.8g daily MULTI-VITAMIN ORAL Take by mouth once daily. ALLERGIES Allergen Reactions - Latex, Natural Rubb* Swelling itching/redness - Percocet [Oxycodone* Itching Objective PHYSICAL EXAM: The remainder of the physical exam is noncontributory. AIRWAY: Airway Visualization of Uvula: Yes Mouth opening greater than 2 fingerbreadths: Yes Neck Full Range of Motion: Yes LUNGS: Lungs clear to auscultation, Good diaphragmatic excursion CARDIAC: Normal S1 and S2; no rubs, murmurs, or gallops Assessment/Plan ASA Class: ASA Class:: Patient with mild systemic disease Active Problems: * No active hospital problems. * Resolved Problems: * No resolved hospital problems. * Provisional Diagnosis/Treatment Plan: colonoscopy SEDATION GOAL: Moderate SIGNATURE: Zhen Bains MD PATIENT NAME: Jen Holder DATE: February 13, 2020 TIME: 7:45 AM PAGER: [facility] NURSING PROGon 02-13-2020 NURSING PROG HNO ID: [id number] Author: Naren Gonzales RN Service: ? Author Type: Registered Nurse Type: Nursing Progress Note Filed: 02/13/2020 9:34 AM Note Text: POST OP LEARNING RESPONSE INSTRUCTION PROVIDED TO: Patient METHOD OF INSTRUCTION: Written instruction - handouts Verbal instruction PATIENT / FAMILY RESPONSE: Verbalizes understanding of: POST-PROCEDURE INSTRUCTIONS-Correct actions to take to reduce post procedure complications FOLLOW-UP PLAN: Patient instructed to call with any further issues Follow up 6 weeks Await pathology results SUPPLEMENTAL MATERIAL: Procedure discharge instructions REFERRAL (RECOMMENDATION): None Electronically Signed By: Naren Gonzales RN In Department: [facility] NURSING PROG HNO ID: [id number] Author: Gia Tomlinson RN Service: Nursing Author Type: Registered Nurse Type: Nursing Progress Note Filed: 02/13/2020 7:39 AM Note Text: PRE OP LEARNING ASSESSMENT PROCEDURE/SURGERY: GI PROCEDURES: Colonoscopy READINESS TO LEARN COGNITIVE ABILITY: Alert and oriented MOTIVATION TO LEARN: Eager Interested FAMILY SUPPORT: High - Very involved in pt care PATIENT LEARNS BEST BY: Individual Instruction FACTORS AFFECTING LEARNING: None PHYSICAL LIMITATIONS AFFECTING LEARNING: None Electronically Signed By: Gia Tomlinson RN In Department: [facility] ENDOSCOPY Normal [facility] SURGICAL PATHOLOGYon 020 SURGICAL PATHOLOGY ADDENDUM PRESENT Specimen #: [id number] Submitting Physician: ZHEN BAINS M.D. FINAL DIAGNOSIS 1. Right colon, biopsy (A) - Colonic mucosa with no diagnostic abnormality. 2. Transverse colon, biopsy (B) - Colonic mucosa with mild crypt architectural distortion suggestive of prior mucosal injury, negative for active inflammation, granulomas, or dysplasia. 3. Left colon, biopsy (C) - Chronic active colitis, negative for granulomas or dysplasia (see comment). JEL/kll 02/14/2020 COMMENT 3. Given the presence of active inflammation, an immunohistochemical stain for cytomegalovirus (CMV) has been ordered, and the result will be reported in an addendum. Bjorn Guevara M.D. (Electronic Signature) _ SPECIMEN SUBMITTED A: RIGHT COLON, BIOPSY B: TRANSVERSE COLON, BIOPSY C: LEFT COLON, BIOPSY ADDENDUM Date Ordered: 02/14/2020 Date Reported: 02/15/2020 3. An immunohistochemical stain for CMV performed on block C1 is negative. Laboratory Developed Test (LDT) Disclaimer: Positive and negative controls stain appropriately. Performance characteristics of immunohistochemical, immunofluorescent and chromogenic in-situ hybridization tests have been determined by [facility]'s [facility] Pathology and Laboratory Medicine [place] [facility] in a manner consistent with CLIA requirements. One or more of these tests have not been cleared or approved by the FDA. [facility] is regulated under CLIA as qualified to perform high-complexity testing. These tests are used for clinical purposes. They should not be regarded as investigational or for research. RAMONA/george 02/15/2020 Addendum Pathologist: Bjorn Guevara M.D. Electronic Signature CLINICAL DATA COLONOSCOPY; ULCERATIVE COLITIS GROSS DESCRIPTION A. Received in formalin are five pieces of pang, soft tissue aggregating to 1.2 x 0.5 x 0.1 cm. Totally submitted in one cassette. B. Received in formalin are five pieces of pang, soft tissue aggregating to 1.1 x 0.2 x 0.1 cm. Totally submitted in one cassette. C. Received in formalin are multiple pieces of pang, soft tissue aggregating to 1.2 x 0.4 x 0.2 cm. Totally submitted in two cassettes. Gross examination performed at [facility], [address] [place] [address] JJA 02/13/2020 2:42:06 PM Date of Report: 02/14/2020 Date of Procedure: 02/13/2020 Date of Receipt: 02/13/2020 Submitted by: ZHEN BAINS M.D. Location: [facility] Diagnostic [place] [address]. CLIA Number: [id number] [facility] HOSPon 02-07-2020 HOSP Patient:Momo Holder MRN: Height:5' 6.5[patient reported[(1.689 m) Weight:230 lb (104.327 kg) Outpatient Medications as of 02/13/20: predniSONE (DELTASONE) 10 mg tablet triamcinolone acetonide (KENALOG) 0.5 % cream calcium carbonate (CALCIUM 500 ORAL) Lactobacillus acidophilus (PROBIOTIC ORAL) POTASSIUM-99 ORAL ferrous sulfate (IRON ORAL) COMPOUNDED PRESCRIPTION MULTI-VITAMIN ORAL Admission/Clinic Administered Medications as of 02/13/20: Patient has no admission medications. Problem List: Asthma [J45.909] Ulcerative colitis (HCC) [K51.90] Eczema [L30.9] Breathlessness on exertion [R06.81] Environmental allergies [Z91.09] Lipoma [D17.9] Special screening for malignant neoplasms, colon [Z12.11] Vocal cord dysfunction [J38.3] Allergies: Natural Rubber Latex Percocet [Oxycodone-Acetaminoph en] Date Verified: 02/13/20 Lab Values No results within the last 30 days for the following basenames: K,HCT Progress Notes ([facility] MOB 450): Braden Sarmiento MA 02/06/2020 2:08 PM Signed Called patient to schedule Colonoscopy. Mailbox is full, unable to leave message. Braden Sarmiento MA 02/06/2020 4:12 PM Signed Patient says she spoke to Dr. Bains in regards to scheduling colonoscopy week from today on 02/13/20. Just confirming don't see any documentation. Zhen Bains MD 02/06/2020 5:05 PM Signed There is a phone call documented for last Thursday. In that conversation, I document that I want the patient to be scheduled for colonoscopy at [facility]. That conversation was routed to the [facility] Gastro/General surgery pool on Thursday. It should be very easy to find. Was this message not received by the pool?? Progress Notes ([facility]): Paola Bales 02/03/2020 4:36 PM Signed [place] [facility] called stating they are out of Moviprep but they have Golytely, would you like that in its place or do you specifically want Moviprep. Please let pharmacy know or OA pool to send Miralax directions. Mariela Ace RN 02/03/2020 5:07 PM Signed I called patient Jen. She would really like to try the Movi prep . I phoned [facility] @ [phone] and transferred prescription for prep. Told patient that if cost of script proves to be too much, that we will send her all instructions for Miralax/Gatorade recipe. [facility] Lab Report: (P) Urinalysis, Completeon 11-19-2016 Albumin Ql (U) Negative Negative [facility] Work Phone: Bilirubin Ql (U) Negative Negative [facility] Work Phone: Clarity Nom (U) Turbid Clear [facility] Work Phone: Color Nom (U) Yellow Yellow [facility] Work Phone: Glucose Ql (U) Normal mg/dl Normal [facility] Work Phone: Ketones mass conc (U) Negative Negative [facility] Work Phone: Leukocyte esterase Test strip Ql (U) Negative Negative [facility] Work Phone: OCCULT BLOOD-UR 25 High Negative [facility] Work Phone: pH (U) 6.0 [pH] 5.0 - 8.0 [facility] Work Phone: Specific gravity Refractometry Relative Density (U) 1.025 1.002-1.030 [facility] Work Phone: Lab Report: Urinalysis, Comp leteon 11-19-2016 Bacteria LM.HPF #/area (Urine sed) 1+ /hpf None Seen [facility] Work Phone: CA OX CRYSTAL 1+ /hpf [facility] Work Phone: Epithelial cells LM.HPF #/area (Urine sed) 0-5 SEEN 5-10 [facility] Work Phone: Mucus Ql (Urine sed) 0 SEEN [facility] Work Phone: RBC LM.HPF #/vol (Urine sed) 0 SEEN 0-5 [facility] Work Phone: WBC #/vol (Bld) 0 SEEN 0-5 [facility] Work Phone: Office Visit: UC: [place]/U rinary Frequencyon 11-18-2016 blood in urine (hemoglobin) by dipstick 3+ Invalid Interpretation Code [facility] Work Phone: Documentation of current medications (procedure) Done Invalid Interpretation Code [facility] Work Phone: Fall risk assessment No [facility] Work Phone: Glucose Test strip mass conc (U) Negative [facility] Work Phone: Nitrite Ql (U) Negative [facility] Work Phone: Protein mass conc (U) Done [facility] Work Phone: specific gravity, urine 1.020 Invalid Interpretation Code [facility] Work Phone: Tobacco smoking status NHIS Never [facility] Work Phone: Tobacco smoking status [place] Former smoker [facility] Work Phone: Tobacco use [facility] Former smoker Invalid Interpretation Code [facility] Work Phone: Urine, appearance clear [facility] Work Phone: Urine, bilirubin presence Negative Invalid Interpretation Code [facility] Work Phone: Urine, color yellow Invalid Interpretation Code [facility] Work Phone: Urine, glucose presence Negative Invalid Interpretation Code [facility] Work Phone: Urine, ketones presence Negative Invalid Interpretation Code [facility] Work Phone: Urine, leukocyte esterase presence Negative Invalid Interpretation Code [facility] Work Phone: Urine, nitrite presence Negative Invalid Interpretation Code [facility] Work Phone: Urine, pH 6.0 [pH] Invalid Interpretation Code [facility] Work Phone: Urine, protein Negative Invalid Interpretation Code [facility] Work Phone: Urine, urobilinogen presence Negative [facility] Work Phone: Vital Signs Date Time Vital Sign Value Performing Clinician Facility 06-02-2025 15:06-0400 Body height 167.[address] Rolando Ceballos DO Work Phone: [facility] 08-22-2024 15:06-0400 Body mass index (BMI) [Ratio] 41 kg/m2 Dr. Rolando Ceballos DO Work Phone: [facility] 08-22-2024 15:06-0400 Body weight 115.[address] Rolando Ceballos DO Work Phone: [facility] 08-22-2024 15:06-0400 Diastolic blood pressure 99 mm[Hg] Dr. Rolando Ceballos DO Work Phone: [facility] 08-22-2024 15:06-0400 Heart rate 99 /min Dr. Rolando Ceballos DO Work Phone: [facility] 08-22-2024 15:06-0400 Respiratory rate 17 /min Dr. Rolando Ceballos DO Work Phone: [facility] 08-22-2024 15:06-0400 SaO2% (BldA) [Mass fraction] 97 % Dr. Rolando Ceballos DO Work Phone: [facility] 08-22-2024 15:06-0400 Systolic blood pressure 137 mm[Hg] Dr. Rolando Ceballos DO Work Phone: [facility] 08-07-2024 20:03-0400 Diastolic blood pressure 95 mm[Hg] Rolando Ceballos DO Work Phone: [facility] 08-07-2024 20:03-0400 Heart rate 82 /min Rolando Ceballos DO Work Phone: [facility] 08-07-2024 20:03-0400 SaO2% (BldA) [Mass fraction] 98 % Rolando Ceballos DO Work Phone: [facility] 08-07-2024 20:03-0400 Systolic blood pressure 155 mm[Hg] Rolando Ceballos DO Work Phone: [facility] 08-07-2024 17:19-0400 Body temperature 98.29 [degF] Rolando Walkeryobany DO Work Phone: [facility] 08-07-2024 17:19-0400 Respiratory rate 18 /min Rolando Ceballos DO Work Phone: [facility] 08-02-2024 08:57-0400 Diastolic blood pressure 86 mm[Hg] Rolando Ceballos DO Work Phone: [facility] 08-02-2024 08:57-0400 Heart rate 68 /min Rolando Walkeryobany DO Work Phone: [facility] 08-02-2024 08:57-0400 Systolic blood pressure 136 mm[Hg] Rolando Ceballos DO Work Phone: [facility] 08-02-2024 08:18-0400 Body height 167.6 cm Rolando Ceballos Work Phone: [facility] 08-02-2024 08:18-0400 Body mass index (BMI) [Ratio] 40.51 kg/m2 Rolando Deniseyobany DO Work Phone: [facility] 08-02-2024 08:18-0400 Body temperature 97.5 [degF] Rolando Ceballos DO Work Phone: [facility] 08-02-2024 08:18-0400 Body weight 113.85 kg Rolando Ceballos Work Phone: [facility] 08-02-2024 08:18-0400 SaO2% (BldA) [Mass fraction] 98 % Rolando Ceballos DO Work Phone: [facility] 05-04-2024 15:06-0500 Body height 167.[address] Rolando Ceballos DO Work Phone: [facility] 05-04-2024 15:00-0500 Body mass index (BMI) [Ratio] 39.5 kg/m2 Dr. Rolando Ceballos DO Work Phone: [facility] 05-04-2024 15:00-0500 Body weight 111.[address] Rolando Ceballos DO Work Phone: [facility] 05-04-2024 15:00-0500 Diastolic blood pressure 94 mm[Hg] Dr. Rolando Ceballos DO Work Phone: [facility] 05-04-2024 15:00-0500 Heart rate 88 /min Dr. Rolando Ceballos DO Work Phone: [facility] 05-04-2024 15:00-0500 Respiratory rate 18 /min Dr. Rolando Ceballos DO Work Phone: [facility] 05-04-2024 15:00-0500 SaO2% (BldA) [Mass fraction] 93 % Dr. Rolando Ceballos DO Work Phone: [facility] 05-04-2024 15:00-0500 Systolic blood pressure 131 mm[Hg] Dr. Rolando Ceballos DO Work Phone: [facility] 04-28-2024 15:07-0500 Diastolic blood pressure 97 mm[Hg] Dr. Rolando Ceballos DO Work Phone: [facility] 04-28-2024 15:07-0500 Heart rate 83 /min Dr. Rolando Ceballos DO Work Phone: [facility] 04-28-2024 15:07-0500 Respiratory rate 16 /min Dr. Rolando Ceballos DO Work Phone: [facility] 04-28-2024 15:07-0500 SaO2% (BldA) [Mass fraction] 96 % Dr. Rolando Ceballos DO Work Phone: [facility] 04-28-2024 15:07-0500 Systolic blood pressure 145 mm[Hg] Dr. Rolando Ceballos DO Work Phone: [facility] 04-28-2024 14:12-0500 Body mass index (BMI) [Ratio] 38.7 kg/m2 Dr. Rolando Ceballos DO Work Phone: [facility] 04-28-2024 14:12-0500 Body weight 108.[address] Rolando Ceballos DO Work Phone: [facility] 04-08-2024 08:12-0500 Diastolic blood pressure 110 mm[Hg] Bjorn Tejada PA-C Work Phone: [facility] 04-08-2024 08:12-0500 Systolic blood pressure 160 mm[Hg] Bjorn Tejada PA-C Work Phone: [facility] 04-08-2024 07:29-0500 Body height 167.6 cm Bjorn Tejada PA-C Work Phone: [facility] 04-08-2024 07:29-0500 Body mass index (BMI) [Ratio] 39.38 kg/m2 Bjorn Tejada PA-C Work Phone: [facility] 04-08-2024 07:29-0500 Body temperature 97.7 [degF] Bjorn Tejada PA-C Work Phone: [facility] 04-08-2024 07:29-0500 Body weight 110.68 kg Bjorn Tejada PA-C Work Phone: [facility] 04-08-2024 07:29-0500 Heart rate 102 /min Bjorn Tejada PA-C Work Phone: [facility] 04-08-2024 07:29-0500 SaO2% (BldA) [Mass fraction] 98 % Bjorn Tejada PA-C Work Phone: [facility] 03-01-2024 09:59-0500 Body height 167.6 cm Bjorn Tejada PA-C Work Phone: [facility] 03-01-2024 09:59-0500 Body mass index (BMI) [Ratio] 39.19 kg/m2 Bjorn Tejada PA-C Work Phone: [facility] 03-01-2024 09:59-0500 Body temperature 97.9 [degF] Bjorn Tejada PA-C Work Phone: [facility] 03-01-2024 09:59-0500 Body weight 110.13 kg Bjorn Tejada PA-C Work Phone: [facility] 03-01-2024 09:59-0500 Diastolic blood pressure 100 mm[Hg] Bjorn Tejada PA-C Work Phone: [facility] 03-01-2024 09:59-0500 Heart rate 92 /min Bjorn Tejada PA-C Work Phone: [facility] 03-01-2024 09:59-0500 SaO2% (BldA) [Mass fraction] 98 % Bjorn Tejada PA-C Work Phone: [facility] 03-01-2024 09:59-0500 Systolic blood pressure 142 mm[Hg] Bjorn Tejada PA-C Work Phone: [facility] 01-05-2024 08:29-0400 Body height 167.6 cm Bjorn Tejada PA-C Work Phone: [facility] 01-05-2024 08:29-0400 Body mass index (BMI) [Ratio] 39.03 kg/m2 Bjorn Tejada PA-C Work Phone: [facility] 01-05-2024 08:29-0400 Body temperature 97.39 [degF] Bjorn Tejada PA-C Work Phone: [facility] 01-05-2024 08:29-0400 Body weight 109.68 kg Bjorn Tejada PA-C Work Phone: [facility] 01-05-2024 08:29-0400 Diastolic blood pressure 81 mm[Hg] Bjorn Tejada PA-C Work Phone: [facility] 01-05-2024 08:29-0400 Heart rate 81 /min Bjorn Tejada PA-C Work Phone: [facility] 01-05-2024 08:29-0400 SaO2% (BldA) [Mass fraction] 97 % Bjorn Tjeada PA-C Work Phone: [facility] 01-05-2024 08:29-0400 Systolic blood pressure 138 mm[Hg] Bjorn Tejada PA-C Work Phone: [facility] 03-26-2023 10:43-0500 Body height 167.6 cm Bjorn Williamsono PA-C Work Phone: [facility] 03-26-2023 10:43-0500 Body mass index (BMI) [Ratio] 39.22 kg/m2 Bjorn Williamsono PA-C Work Phone: [facility] 03-26-2023 10:43-0500 Body temperature 97.5 [degF] Bjorn Williamsono PA-C Work Phone: [facility] 03-26-2023 10:43-0500 Body weight 110.22 kg Bjorn Williamsono PA-C Work Phone: [facility] 03-26-2023 10:43-0500 Diastolic blood pressure 100 mm[Hg] Bjorn Williamsono PA-C Work Phone: [facility] 03-26-2023 10:43-0500 Heart rate 99 /min Bjorn Williamsono PA-C Work Phone: [facility] 03-26-2023 10:43-0500 SaO2% (BldA) [Mass fraction] 98 % Bjorn Williamsono PA-C Work Phone: [facility] 03-26-2023 10:43-0500 Systolic blood pressure 122 mm[Hg] Bjorn Williamsono PA-C Work Phone: [facility] 01-23-2023 09:07-0400 Body temperature 97.4 [degF] Dr. Bhaevsh Guerrero Work Phone: [facility] 01-23-2023 09:07-0400 Diastolic blood pressure 93 mm[Hg] Dr. Bhavesh Guerrero Work Phone: [facility] 01-23-2023 09:07-0400 Heart rate 68 /min Dr. Bhavesh Guerrero Work Phone: [facility] 01-23-2023 09:07-0400 Respiratory rate 18 /min Dr. Bhavesh Guerrero Work Phone: [facility] 01-23-2023 09:07-0400 SaO2% (BldA) [Mass fraction] 96 % Dr. Bhavesh Guerrero Work Phone: [facility] 01-23-2023 09:07-0400 Systolic blood pressure 154 mm[Hg] Dr. Bhavesh Guerrero Work Phone: [facility] 01-23-2023 06:26-0400 Body height 167.[address] Bhavesh Guerrero Work Phone: [facility] 01-23-2023 06:26-0400 Body mass index (BMI) [Ratio] 38.7 kg/m2 Dr. Bhavesh Guerrero Work Phone: [facility] 01-23-2023 06:26-0400 Body weight [address] Bhavesh Guerrero Work Phone: [facility] 12-29-2022 08:31-0400 Body mass index (BMI) [Ratio] 38.9 kg/m2 Dr. Bhavesh Guerrero Work Phone: [facility] 12-29-2022 08:31-0400 Body weight 109.[address] Bhavesh Guerrero Work Phone: [facility] 12-29-2022 08:31-0400 Diastolic blood pressure 104 mm[Hg] Dr. Bhavesh Guerrero Work Phone: [facility] 12-29-2022 08:31-0400 Heart rate 86 /min Dr. Bhavesh Guerrero Work Phone: [facility] 12-29-2022 08:31-0400 Respiratory rate 17 /min Dr. Bhavesh Guerrero Work Phone: [facility] 12-29-2022 08:31-0400 SaO2% (BldA) [Mass fraction] 96 % Dr. Bhavesh Guerrero Work Phone: [facility] 12-29-2022 08:31-0400 Systolic blood pressure 156 mm[Hg] Dr. Bhavesh Guerrero Work Phone: [facility] 11-18-2022 07:58-0400 Body height 167.6 cm Bjorn Williamsono PA-C Work Phone: [facility] 11-18-2022 07:58-0400 Body mass index (BMI) [Ratio] 38.74 kg/m2 Bjorn Tejada PA-C Work Phone: [facility] 11-18-2022 07:58-0400 Body temperature 97.7 [degF] Bjorn Tejada PA-C Work Phone: [facility] 11-18-2022 07:58-0400 Body weight 108.86 kg Bjorn Tejada PA-C Work Phone: [facility] 11-18-2022 07:58-0400 Diastolic blood pressure 83 mm[Hg] Bjorn Williamsono PA-C Work Phone: [facility] 11-18-2022 07:58-0400 Heart rate 98 /min Bjorn Tejada PA-C Work Phone: [facility] 11-18-2022 07:58-0400 SaO2% (BldA) [Mass fraction] 99 % Bjorn Tejada PA-C Work Phone: [facility] 11-18-2022 07:58-0400 Systolic blood pressure 120 mm[Hg] Bjorn Williamsono PA-C Work Phone: [facility] 05-19-2022 14:52-0500 Body height 167.[address] Bhavesh Guerrero Work Phone: [facility] 05-19-2022 14:52-0500 Body mass index (BMI) [Ratio] 38.3 kg/m2 Dr. Bhavesh Guerrero Work Phone: [facility] 05-19-2022 14:52-0500 Body weight 107.[address] Bhavesh Guerrero Work Phone: [facility] 05-15-2022 17:25-0500 Body temperature 97.3 [degF] Dr. Bhavesh Guerrero Work Phone: [facility] 05-15-2022 17:25-0500 Diastolic blood pressure 80 mm[Hg] Dr. Bhavesh Guerrero Work Phone: [facility] 05-15-2022 17:25-0500 Heart rate 85 /min Dr. Bhavesh Guerrero Work Phone: [facility] 05-15-2022 17:25-0500 Respiratory rate 16 /min Dr. Bhavesh Guerrero Work Phone: [facility] 05-15-2022 17:25-0500 SaO2% (BldA) [Mass fraction] 99 % Dr. Bhavesh Guerrero Work Phone: [facility] 05-15-2022 17:25-0500 Systolic blood pressure 130 mm[Hg] Dr. Bhavesh Guerrero Work Phone: [facility] 04-30-2022 16:10-0500 Body temperature 98.1 [degF] Dr. Bhavesh Guerrero Work Phone: [facility] 04-30-2022 16:10-0500 Diastolic blood pressure 80 mm[Hg] Dr. Bhavesh Guerrero Work Phone: [facility] 04-30-2022 16:10-0500 Heart rate 103 /min Dr. Bhavesh Guerrero Work Phone: [facility] 04-30-2022 16:10-0500 Respiratory rate 14 /min Dr. Bhavesh Guerrero Work Phone: [facility] 04-30-2022 16:10-0500 SaO2% (BldA) [Mass fraction] 99 % Dr. Bhavesh Guerrero Work Phone: [facility] 04-30-2022 16:10-0500 Systolic blood pressure 132 mm[Hg] Dr. Bhavesh Guerrero Work Phone: [facility] 03-31-2022 09:20-0500 Body temperature 97.9 [degF] Dr. Bhavesh Guerrero Work Phone: [facility] 03-31-2022 09:20-0500 Diastolic blood pressure 74 mm[Hg] Dr. Bhavesh Guerrero Work Phone: [facility] 03-31-2022 09:20-0500 Heart rate 77 /min Dr. Bhavesh Guerrero Work Phone: [facility] 03-31-2022 09:20-0500 Respiratory rate 16 /min Dr. Bhavesh Guerrero Work Phone: [facility] 03-31-2022 09:20-0500 SaO2% (BldA) [Mass fraction] 96 % Dr. Bhavesh Guerrero Work Phone: [facility] 03-31-2022 09:20-0500 Systolic blood pressure 125 mm[Hg] Dr. Bhavesh Guerrero Work Phone: [facility] 03-31-2022 07:27-0500 Body height 167.[address] Bhavesh Guerrero Work Phone: [facility] Work Phone: 03-31-2022 07:27-0500 Body mass index (BMI) [Ratio] 36.7 kg/m2 Dr. Bhavesh Guerrero Work Phone: [facility] 03-31-2022 07:27-0500 Body weight 103.[address] Bhavesh Guerrero Work Phone: [facility] 11-18-2016 16:49-0400 BMI (Body Mass Index) 34.36 kg/m2 Tiffany Steele LPN [facility] Work Phone: 11-18-2016 16:49-0400 Body Temperature 98.6 [degF] Tiffany Steele LPN [facility] Work Phone: 11-18-2016 16:49-0400 BP Diastolic 88 mm[Hg] Tiffany Steele DECISION ANALYST [facility] Work Phone: 11-18-2016 16:49-0400 BP Systolic 128 mm[Hg] Tiffany Steele DECISION ANALYST [facility] Work Phone: 11-18-2016 16:49-0400 Height 172.72 cm Tiffayn Steele DECISION ANALYST [facility] Work Phone: 11-18-2016 16:49-0400 Pulse (Heart Rate) 83 /min Tiffany Steele DECISION ANALYST [facility] Work Phone: 11-18-2016 16:49-0400 Respiratory Rate 16 /min Tiffany Steele DECISION ANALYST [facility] Work Phone: 11-18-2016 16:49-0400 Weight 102.51 kg Tiffany Steele DECISION ANALYST [facility] Work Phone: 03-07-2016 16:23-0500 BP Diastolic 93 mm[Hg] Tiffany Steele DECISION ANALYST [facility] Work Phone: 03-07-2016 16:23-0500 BP Systolic 125 mm[Hg] Tiffany Steele DECISION ANALYST [facility] Work Phone: 03-07-2016 16:23-0500 Pulse (Heart Rate) 99 /min Tiffany Steele DECISION ANALYST [facility] Work Phone: Encounters Encounter Date Encounter Type Care Provider Facility Start: 10-03-2024 ambulatory [facility] y:[facility] Start: 09-28-2024 End: 09-28-2024 Telephone encounter Rolando Ceballos DO Work Phone: [facility] Start: 09-27-2024 End: 09-28-2024 Telephone encounter Rolando Lupillo Lin DO Work Phone: [facility] Comment on above: Referral (Dietitian at [facility]) Start: 08-25-2024 End: 08-25-2024 Orders Only Rolando Ceballos DO Work Phone: [facility] [place] Comment on above: Type 2 diabetes jewels itus without complication, without long- term current use of insulin (HCC) (Primary Dx) Start: 08-23-2024 End: 08-23-2024 Telephone encounter Rolando Ceballos DO Work Phone: [facility] [place] Comment on above: Results Start: 08-22-2024 End: 08-22-[address] Marisa Palm MD -[facility] Work Phone: Start: 08-22-2024 End: 08-22-[address] Rolando Ceballos DO Work Phone: [facility] Work Phone: Start: 08-22-2024 End: 08-22-[address] Rolando Ceballos DO Work Phone: [facility] Work Phone: Start: 08-22-2024 End: 08-22-[address] Rolando Ceballos DO -Laboratory Work Phone: Start: 08-22-2024 End: 08-22-2024 ambulatory Rolando Ceballos Facility:[facility] Start: 08-20-2024 End: 08-20-[address] Rolando Ceballos DO Work Phone: [facility] Work Phone: Start: 08-20-2024 End: 08-20-[address] 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 Rolando Ceballos DO Work Phone: [facility] Work Phone: Start: 08-12-2024 End: 08-12-[address] Rolando Ceballos DO -Ultrasound [facility] Work Phone: Start: 08-12-2024 End: 08-12-2024 ambulatory Rolando Ceballos Facility:[facility] Start: 08-09-2024 End: 08-09-2024 Orders Only Rolando Ceballos DO Work Phone: [facility]. Comment on above: Epigastric pain (Mindy naren Dx); Hyperglycemia; Chest pain, unspecified type; History of gallstones Start: 08-07-2024 End: 08-07-2024 Subsequent hospital visit by physician [facility] Comment on above: Arrived Start: 08-07-2024 End: 08-07-2024 Emergency department patient visit ROLANDO CEBALLOS [facility] Comment on above: Chest pain, unspecif ied type (Primary Dx); Hyperglycemia Start: 08-02-2024 End: 08-02-2024 Office outpatient visit 25 minutes Rolando Ceballos DO Work Phone: [facility]. Comment on above: Hyperuricemia (Prima ry Dx); Ulcerative colitis without complications, unspecified location (HCC); Renal stones; Chronic gout of foot, unspecified cause, unspecified laterality; KAYLA on CPAP; Labile essential hypertension Start: 08-02-2024 End: 08-02-2024 ambulatory [facility] Start: 07-25-2024 End: 07-25-2024 Subsequent hospital visit by physician Collins Deleon MD Work Phone: [facility] Comment on above: Vocal cord dysfuncti on Start: 07-25-2024 End: 07-25-2024 ambulatory COLLINS [facility] Start: 06-16-2024 End: 06-16-2024 Daniel Tejada PA-C Work Phone: [facility] Comment on above: Insomnia, unspecifie d type Start: 06-08-2024 End: 06-08-2024 Telephone encounter Bjorn Tejada PA-C Work Phone: [facility] Clinical Communication Comment on above: Test Scheduling Start: 05-04-2024 End: 05-04-[address] Cody Lee MD -[facility] Work Phone: Start: 05-04-2024 End: 05-04-2024 ambulatory Rolando Vasqueza Facility:[facility] Start: 04-29-2024 End: 04-29-[address] Collins Deleon MD -[facility] Work Phone: Start: 04-28-2024 End: 04-29-[address] [facility] Start: 04-28-2024 Non-patient / Non-visit Dr. Lew Lee MD -[facility] Start: 04-28-2024 End: 04-28-2024 Patient encounter procedure Bjorn PUENTES -[facility] Scan [facility] Work Phone: Start: 04-28-2024 End: 04-28-[address] [facility] Start: 04-27-2024 End: 07-05-2024 Telephone encounter Rolando Ceballos DO Work Phone: [facility] Clinical Communication Start: 04-25-2024 End: 04-25-[address] Marisa Palm MD -[facility] Work Phone: Start: 04-25-2024 End: 04-25-2024 ambulatory Marisa Palm Facility:[facility] Start: 04-19-2024 Encounter for other preprocedural examination Marisa Palm [facility] Start: 04-15-2024 ambulatory Rolando Vasqueza Facilit y:[facility] Start: 04-15-2024 End: 04-15-2024 ambulatory Rolando Christinaa Facility:[facility] Start: 04-08-2024 End: 04-08-2024 ambulatory Rolando Vasqueza Facility:[facility] Start: 04-08-2024 End: 04-08-2024 Office outpatient visit 15 minutes Bjorn Tejada PA-C Work Phone: [facility] Comment on above: Abnormal EKG (Primar y Dx); Chest pain, unspecified type; Elevated blood pressure reading in office without diagnosis of hypertension; Primary insomnia Start: 04-08-2024 End: 04-08-2024 ambulatory [facility] Start: 04-08-2024 End: 04-08-2024 ambulatory [facility] Facility:[facility] Start: 03-25-2024 End: 03-25-2024 ambulatory [facility] Facility:[facility] Start: 03-21-2024 End: 03-21-2024 ambulatory [facility] Facility:[facility] Start: 03-07-2024 End: 03-07-2024 ambulatory [facility] Facility:[facility] Start: 03-04-2024 End: 03-04-2024 ambulatory [facility] Facility:[facility] Start: 03-01-2024 End: 04-05-2024 Patient encounter procedure Adrienne Lee RN [facility] Clinical Communication Start: 03-01-2024 End: 03-01-2024 Office outpatient visit 15 minutes Bjorn Tejada PA-C [facility] Phone[facility] Comment on above: Epigastric pain (Mindy naren Dx); Periumbilical pain Start: 03-01-2024 End: 04-05-2024 [facility] Start: 02-29-2024 End: 03-01-2024 ambulatory [facility] Start: 02-29-2024 End: 03-01-2024 Patient encounter procedure [facility]ul[facility] Start: 01-13-2024 End: 01-14-2024 Telephone encounter Bjorn Tejada PA-C Work Phone: [facility] Communication Comment on above: Orders Start: 01-05-2024 End: 01-05-2024 Office outpatient visit 40 minutes Bjorn Tejada PA-C Work Phone: [facility] [place] Comment on above: Hypersomnolence (Mindy naren Dx); Dyspnea, unspecified type; Hyperuricemia; Urinary frequency; Insomnia, unspecified type; Eczema, unspecified type; Obesity (BMI 35.0-39.9 without comorbidity) Start: 01-05-2024 End: 01-05-2024 ambulatory BJORN TEJADA [facility] Start: 01-01-2024 ambulatory Rolando Ceballos [facility] Start: 11-10-2023 End: 11-10-2023 Office outpatient visit 15 minutes Rolando Wesley Deniseyobany MARTINS Work Phone: [facility] Comment on above: COVID-19 (Primary Dx ); Ulcerative colitis without complications, unspecified location (HCC) Start: 11-10-2023 End: 11-10-2023 ambulatory ROLANDO [facility] Start: 11-09-2023 End: 11-09-2023 ambulatory Brianna Stokes RN [facility] Clinical Communication Start: 11-09-2023 End: 11-09-2023 Patient encounter procedure Brianna Stokes RN [facility] Start: 04-03-2023 Telephone encounter Bjorn harkins PA-C Work Phone: [facility] Comment on above: Orders (MRI) Start: 03-26-2023 End: 03-26-2023 Office outpatient visit 15 minutes Bjorn Tejada PA-C Work Phone: [facility] Comment on above: Chronic left shoulde r pain (Primary Dx); Obesity (BMI 30-39.9) Start: 03-26-2023 End: 03-26-2023 Office outpatient visit 25 minutes Bjorn Tejada PA-C Work Phone: [facility] Comment on above: Chronic left shoulde r pain (Primary Dx); Obesity (BMI 30-39.9) Start: 01-23-2023 Non-patient / Non-visit Dr. Dhaval Guerrero Work Phone: [facility] Start: 01-23-2023 End: 01-23-2023 Admission to same day surgery center Dr. Bhavesh Guerrero Work Phone: [facility] Start: 01-23-2023 End: 01-23-[address] Bhavesh Guerrero Work Phone: [facility] Work Phone: Start: 12-29-2022 End: 12-29-[address] Bhavesh Guerrero Work Phone: [facility] Work Phone: Start: 12-16-2022 Telephone encounter Bjorn harkins PA-C Work Phone: [facility] Comment on above: Referral Start: 12-10-2022 Telephone encounter Rolando Lupillo Edie sandoval DO Work Phone: [facility] Comment on above: Referral (General bobo rgeon) Start: 11-18-2022 End: 11-18-2022 Office outpatient visit 15 minutes Bjorn Tejada PA-C Work Phone: [facility] Comment on above: Eczema, unspecified type; GERD without esophagitis Start: 11-15-[address] Bhavesh jiménez Work Phone: [facility] Start: 11-11-2022 ambulatory [facility] Start: 11-11-2022 Patient encounter procedure [facility] Clinical Communication Start: 05-30-2022 End: 05-30-[address] Bhavesh Guerrero Work Phone: [facility] Start: 05-29-2022 End: 05-29-[address] Bhavesh Guerrero Work Phone: [facility] Work Phone: Start: 05-29-2022 End: 05-29-[address] Bhavesh Guerrero Work Phone: [facility] Start: 05-19-2022 End: 05-19-[address] Bhavesh Guerrero Work Phone: [facility] Start: 05-16-2022 End: 05-16-[address] Bhavesh Guerrero Work Phone: [facility] Work Phone: Start: 05-16-2022 End: 05-16-[address] [facility] Start: 05-15-2022 End: 05-15-[address] Bhavesh Guerrero Work Phone: [facility] Start: 04-30-2022 End: 04-30-[address] Bhavesh Guerrero Work Phone: [facility] Start: 03-31-2022 Non-patient / Non-visit Dr. Dhaval Guerrero Work Phone: [facility] Start: 03-31-2022 End: 03-31-2022 Admission to same day surgery center Dr. Bhavesh Guerrero Work Phone: [facility]Endoscopy Start: 03-31-2022 End: 03-31-[address] Bhavesh Guerrero Work Phone: [facility] Work Phone: Start: 03-21-2022 End: 03-21-[address] 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 Bhavesh Guerrero Work Phone: [facility] Start: 12-03-[address] Bhavesh jiménez Work Phone: [facility] Start: 12-03-2021 End: 12-03-[address] Bhavesh Guerrero Work Phone: [facility]Laboratory Procedures Date Procedure Procedure Detail Performing Clinician Start: 08-12-[address] Rolando Ceballos DO Work Phone: Start: 08-07-2024 Assay of troponin quantitative Ramya D'Brenton PA-C Work Phone: Start: 08-07-2024 Radiologic exam ches t single view Ramya D'Brenton PA-C Work Phone: Start: 08-07-2024 Basic metabolic pane l calcium total Ramya D'Brenton PA-C Work Phone: Start: 08-07-2024 Ecg routine ecg w/le ast 12 lds trcg only w/o i&r Lora Thorne DO Work Phone: Start: 04-28-2024 CT angiography of co ronary arteries Dr. Rolando Ceballos DO Work Phone: Start: 04-08-2024 Ecg routine ecg w/le ast 12 lds w/i&r Bjorn PUENTES-C Work Phone: Start: 04-08-2024 Mammography Bjorn harkins PA-C Work Phone: Start: 04-07-2024 Adult depression scr eening assessment Bjorn Tejada PA-C Work Phone: Start: 01-05-2024 Culture bacterial quanttative colony count urine Bjorn PUENTES-C Work Phone: Start: 01-05-2024 Adult depression scr eening assessment Bjorn Tejada PA-C Work Phone: Start: 01-23-[address] Bhavesh jiménez Work Phone: Start: 11-15-2022 Lipid 1996 panel - S lola or Plasma Bjorn Tejada PA-C Work Phone: Start: 05-29-2022 MRI of joint of lowe r extremity Dr. Bhavesh Guerrero Work Phone: Start: 05-16-2022 Radiologic examinati on of knee Dr. Bhavesh Guerrero Work Phone: Start: 03-31-2022 End: 03-31-[address] Bhavesh Guerrero Work Phone: Start: 04-24-2020 Mammography Bhavesh dutta DO Work Phone: Start: 11-19-2016 End: 11-19-2016 Urinalysis Reggie PUENTES Start: 11-18-2016 End: 11-18-2016 Urinalysis Reggie PUENTES Start: 11-18-2016 End: 11-20-2016 Urinalysis complete panel - Urine Reggie PUENTES Work Phone: Start: 11-18-2016 End: 11-18-2016 Urinalysis nonauto w/o scope Reggie simpson PA Work Phone: Plan of Treatment Date Care Activity Detail Author Start: 2040 RSV Immunization for Adults (1 - 1-dose 75+ series) RSV Immunization for Adults (1 - 1-dose 75+ series) [facility] Start: 03-31-2032 Screening for malign ant neoplasm of colon [facility] Start: 12-28-2027 DTaP/Tdap/Td Vaccine s (3 - Td or Tdap) DTaP/Tdap/Td Vaccines (3 - Td or Tdap) [facility] Start: 12-28-2027 DTaP/Tdap/Td Vaccine s (4 - Td or Tdap) DTaP/Tdap/Td Vaccines (4 - Td or Tdap) [facility] Start: 11-16-2027 Lipid panel Lipid Panel [facility] Start: 08-07-2025 Diabetes: Estimated Glomerular Filtration Rate for Kidney Health Diabetes: Estimated Glomerular Filtration Rate for Kidney Health [facility] Start: 2025 RSV Immunization age d 60 or older (1 - 1-dose 60+ series) RSV Immunization aged 60 or older (1 - 1-dose 60+ series) [facility] Start: 04-08-2025 Screening for malign ant neoplasm of breast Mammogram [facility] Start: 04-07-2025 Depression Screening Depression Scre ening [facility] Start: 01-04-2025 Depression Screening Depression Scre ening [facility] Start: 11-22-2024 End: 11-22-2024 Patient encounter procedure 11/22/2024 8:00 AM EDT Office Visit [address] [place] [address] Rolando Ceballos, [address] [place] [address] [place] [id number] [facility] Start: 11-21-2024 FLU (Season Ended) FLU (Season Ended ) [facility] Start: 11-21-2024 Influenza vaccination [facility] Start: 11-02-2024 End: 11-02-2024 Patient encounter procedure 11/02/2024 4:40 PM EDT [facility] [place] [id number] Rolando Ceballos, [address] [place] [address] [place] [address] [facility] Start: 09-19-2024 Influenza vaccination Influenza Vacc ine (#1) [facility] Comment on above: Postponed from 11/21 (Patient Refused) Start: 08-10-2024 End: 08-10-2024 Patient encounter procedure 08/10/2024 1:30 PM EDT Appointment [facility] [address] [place] [address] Dottie Escudero, [facility] INTERVIEWER [address] [place] [address] follow up Speech Therapy Esper[facility] Silverman Comment on above: follow up Start: 08-09-2024 End: 08-09-2025 Glucose [Mass/volume] in Serum or Plasma Glucose, Random Lab Routine Hyperglycemia Expected: 08/09/2024 (Approximate), Expires: 08/09/2025 [facility] Comment on above: Expected: 08/09/2024 (Approximate), Expires: 08/09/2025 Start: 08-09-2024 End: 08-09-2025 Hemoglobin A1c measurement Hemoglobin A1c Lab Routine Hyperglycemia Expected: 08/09/2024 (Approximate), Expires: 08/09/2025 [facility] Comment on above: Expected: 08/09/2024 (Approximate), Expires: 08/09/2025 Start: 08-09-2024 End: 08-09-2025 US Abdomen limited US abdomen limited Imaging Routine Chest pain, unspecified type History of gallstones Expected: 08/09/2024, Expires: 08/09/2025 [facility] Work Phone: Comment on above: Expected: 08/09/2024 , Expires: 08/09/2025 Start: 08-02-2024 End: 08-02-2025 Urate [Mass/volume] in Serum or Plasma Uric acid Lab Routine Hyperuricemia Expected: 08/02/2024 (Approximate), Expires: 08/02/2025 [facility] Work Phone: Comment on above: Expected: 08/02/2024 (Approximate), Expires: 08/02/2025 Start: 08-02-2024 End: 08-02-2024 Patient encounter procedure 08/02/2024 8:20 AM EDT Office Visit [facility] [place] [address] [place] [address] Rolando Ceballos, [address] [place] [address] [place] [address] [facility] Start: 06-28-2024 End: 06-28-2024 Patient encounter procedure 06/28/2024 8:30 AM EDT Office Visit [facility] [address] [place] [address] Rolando Ceballos, [address] [place] [address] [facility] Start: 04-28-2024 Following clinical pathway protocol [facility] Start: 04-08-2024 End: 04-08-2025 CTA Heart and Coronary arteries WO and W contrast IV CTA HEART CORONARY ANGIOGRAM WITH PROV FFR-CT Imaging Routine Abnormal EKG Chest pain, unspecified type Expected: 04/08/2024, Expires: 04/08/2025 [facility] Comment on above: Expected: 04/08/2024 , Expires: 04/08/2025 Start: 04-08-2024 End: 04-08-2026 US Heart Transthoracic Transthoracic echocardiogram (TTE) complete with contrast, bubble, strain, and 3D PRN CV Echocardiography Routine Abnormal EKG Chest pain, unspecified type Expected: 04/08/2024 (Approximate), Expires: 04/08/2026 [facility] Work Phone: Comment on above: Expected: 04/08/2024 (Approximate), Expires: 04/08/2026 Start: 03-01-2024 End: 03-01-2025 CT Abdomen and Pelvis WO contrast CT abdomen pelvis wo IV contrast Imaging STAT Periumbilical pain Expected: 03/01/2024, Expires: 03/01/2025 [facility] Comment on above: Expected: 03/01/2024 , Expires: 03/01/2025 Start: 02-29-2024 End: 02-28-2025 CBC W Auto Differential panel - Blood CBC auto differential Lab Routine Epigastric pain Expected: 02/29/2024 (Approximate), Expires: 02/28/2025 [facility] Comment on above: Expected: 02/29/2024 (Approximate), Expires: 02/28/2025 Start: 02-29-2024 End: 02-28-2025 Comprehensive metabolic 1998 panel - Serum or Plasma Comprehensive metabolic panel Lab Routine Epigastric pain Expected: 02/29/2024 (Approximate), Expires: 02/28/2025 [facility] Work Phone: Comment on above: Expected: 02/29/2024 (Approximate), Expires: 02/28/2025 Start: 02-29-2024 End: 02-28-2025 Lipase [Enzymatic activity/volume] in Serum or Plasma Lipase Lab Routine Epigastric pain Expected: 02/29/2024 (Approximate), Expires: 02/28/2025 [facility] Comment on above: Expected: 02/29/2024 (Approximate), Expires: 02/28/2025 Start: 01-12-2024 End: 01-12-2024 Patient encounter procedure 01/12/2024 7:30 AM EDT Office Visit [facility] [address] [place] [address] Rolando Ceballos, [address] [place] [address] [place] [address] [facility] Start: 01-05-2024 End: 01-04-2025 Bacteria identified in Urine by Culture Urine culture (clean catch) Microbiology Routine Urinary frequency Expected: 01/05/2024 (Approximate), Expires: 01/04/2025 [facility] [employer] Comment on above: Expected: 01/05/2024 (Approximate), Expires: 01/04/2025 Start: 01-05-2024 End: 01-04-2025 Complete PFT pre and post bronchodilator Complete PFT pre and post bronchodilator PFT Routine Hypersomnolence Dyspnea, unspecified type Expected: 01/05/2024 (Approximate), Expires: 01/04/2025 [facility] Work Phone: Comment on above: Expected: 01/05/2024 (Approximate), Expires: 01/04/2025 Start: 01-05-2024 End: 01-04-2025 Sleep study with pap titration Sleep study with pap titration Sleep Center Routine Hypersomnolence Dyspnea, unspecified type Expected: 01/05/2024 (Approximate), Expires: 01/04/2025 [facility] Comment on above: Expected: 01/05/2024 (Approximate), Expires: 01/04/2025 Start: 11-22-2023 COVID-19 (2023-04 27 season) COVID-19 () [facility] Start: 11-22-2023 COVID-19 (2023-04 season) COVID-19 ( season) [facility] Start: 11-22-2023 COVID-19 Vaccine () COVID-19 Vaccine ( season) [facility] Start: 11-22-2023 COVID-19 Vaccine () COVID-19 Vaccine () [facility] Start: 11-22-2023 Influenza vaccination Influenza Vacc ine (#1) [facility] Start: 11-16-2023 Lipid panel Lipid Panel [facility] Start: 11-10-2023 End: 11-10-2023 Telemedicine consultation with patient 11/10/2023 12:30 PM EDT Telemedicine [facility] [address] [place] [address] Rolando Ceballos, [address] [place] [address] [facility] Start: 05-19-2023 End: 05-19-2023 Patient encounter procedure [facility] Start: 03-26-2023 End: 03-26-2024 MR Shoulder - left WO contrast MR shoulder left wo IV contrast Imaging Routine Chronic left shoulder pain Expected: 03/26/2023, Expires: 03/26/2024 [facility] Work Phone: Comment on above: Expected: 03/26/2023 , Expires: 03/26/2024 Start: 01-23-2023 Patient discharge [facility] Start: 11-21-2022 COVID-19 Vaccine ( season) COVID-19 Vaccine ( season) [facility] Start: 11-21-2022 Influenza vaccination Influenza Vacc ine (#1) [facility] Start: 11-18-2022 End: 11-18-2022 Patient encounter procedure 11/18/2022 8:00 AM EDT Office Visit [facility] [address] [place] [address] Bjorn Tejada PA-C [address] [place] [address] [facility] Start: 05-15-2022 Patient referral [facility] Work Phone: Start: 03-31-2022 Colonoscopy w/biopsy single/multiple COLONOSCOPY AND BIOPSY [facility] Start: 03-31-2022 Patient discharge [facility] Start: 12-06-2021 Diabetes mellitus screening Diabetes Screening [facility] Start: 12-06-2021 Hemoglobin A1c measurement Diabetes: Hemoglobin A1C [facility] Start: 11-21-2021 Influenza vaccination Influenza Vacc ine (#1) [facility] Start: 06-14-2021 COVID-19 Vaccine (4 - Booster for Moderna series) COVID-19 Vaccine (4 - Booster for Moderna series) [facility] Start: 06-14-2021 COVID-19 Vaccine (4 - Moderna series) COVID-19 Vaccine (4 - Moderna series) [facility] Start: 04-24-2021 Screening for malign ant neoplasm of breast Mammogram [facility] Start: 12-29-2019 Hepatitis B (2 of 3 - 19+ 3-dose series) Hepatitis B (2 of 3 - 19+ 3-dose series) [facility] Start: 12-29-2019 Hepatitis B Vaccines (2 of 3 - 19+ 3-dose series) Hepatitis B Vaccines (2 of 3 - 19+ 3-dose series) [facility] Start: 12-29-2019 Hepatitis B Vaccines (2 of 3 - 3-dose series) Hepatitis B Vaccines (2 of 3 - 3-dose series) [facility] Start: 06-27-2018 Tetanus Diphtheria a nd Pertussis Vaccines (3 - Td or Tdap) Tetanus Diphtheria and Pertussis Vaccines (3 - Td or Tdap) [facility] Start: 11-18-2016 End: 11-18-2016 Appointment Appointment [facility] Work Phone: Start: 11-18-2016 End: 11-20-2016 Urinalysis complete panel - Urine *UAC- Urinalysis, Complete w/ Micro [facility] Work Phone: Start: 2015 Zoster Vaccines (1 of 2) Zoster Vacc farhat (1 of 2) [facility] Start: 1995 Screening for malign ant neoplasm of cervix [facility] Start: 1986 Microscopic observat ion [Identifier] in Cervix by Cyto stain Pap Smear [facility] Start: 1986 Screening for malign ant neoplasm of cervix Pap Smear [facility] Start: 1984 Hepatitis A Vaccines (1 of 2 - Risk 2-dose series) Hepatitis A Vaccines (1 of 2 - Risk 2-dose series) [facility] Start: 1984 Pneumococcal Vaccine : 50+ Years (1 of 2 - PCV) Pneumococcal Vaccine: 50+ Years (1 of 2 - PCV) [facility] Start: 1983 Diabetes: Urine Albumin-Creatinine Ratio for Kidney Health Diabetes: Urine Albumin-Creatinine Ratio for Kidney Health [facility] Start: 1983 Hepatitis C screening Hepatitis C Sc reening [facility] Start: 1981 MenB (1 of 2 - MenB 2-Dose Series Bexsero) MenB (1 of 2 - MenB 2-Dose Series Bexsero) [facility] Start: 1978 Varicella (1 of 2 - 13+ 2-dose series) Varicella (1 of 2 - 13+ 2-dose series) [facility] Start: 1977 Depression Screening Depression Scre ening [facility] Start: 1975 Diabetic foot examination Diabetes: Foot Exam [facility] Start: 1975 Glaucoma screening Diabetes: R etinopathy Screening [facility] Start: 1975 Preventive dental service Diabetes: Dental Exam [facility] Start: 1971 Pneumococcal Vaccine : Pediatrics (0 to 5 Years) and At-Risk Patients (6 to 64 Years) (1 of 2 - PCV) Pneumococcal Vaccine: Pediatrics (0 to 5 Years) and At-Risk Patients (6 to 64 Years) (1 of 2 - PCV) [facility] Start: 1966 Hepatitis A Vaccines (1 of 2 - Risk 2-dose series) Hepatitis A Vaccines (1 of 2 - Risk 2-dose series) [facility] Start: 1966 MMR (1 of 1 - Standa rd series) MMR (1 of 1 - Standard series) [facility] Start: 1966 MMR Vaccines (1 of 1 - Standard series) MMR Vaccines (1 of 1 - Standard series) [facility] Start: 1965 HIV screening HIV Screening [facility] Start: 1965 Lipid panel Lipid Panel [facility] Start: 1965 Screening for malign ant neoplasm of colon [facility] MR Lower Extremity Joint [facility] Patient Education URINARY%20URGE NCY%20AND%20 FREQUENCY [facility] Work Phone: Patient referral [facility] Work Phone: Immunizations Immunization Date Immunization Notes Care Provider [facility] 02-09-2023 influenza, injectabl e, quadrivalent, preservative free Rolando Ceballos DO Work Phone: [facility] 02-09-2023 influenza virus vaccine, unspecified formulation Brianna Stokes RN [facility] 01-27-2022 influenza, injectabl e, quadrivalent, preservative free Dr. Bhavesh Guerrero Work Phone: [facility] 01-27-2022 influenza, seasonal, injectable Dr. Bhavesh Guerrero Work Phone: [facility] 01-27-2022 influenza virus vaccine, unspecified formulation Monserrat Martines RN [facility] 04-19-2021 Covid (Pfizer) Dr. Bhavesh arreaga Work Phone: [facility] 12-28-2020 influenza virus vaccine, unspecified formulation Bhavesh Guerrero DO Work Phone: [facility] 12-28-2020 influenza, injectabl e, quadrivalent, contains preservative Bhavesh Guerrero DO Work Phone: [facility] 12-28-2020 influenza, injectabl e, quadrivalent, preservative free Dr. Bhavesh Guerrero Work Phone: [facility] 12-28-2020 influenza, seasonal, injectable Dr. Bhavesh Guerrero Work Phone: [facility] 04-18-2020 Covid (Moderna) Dr. Bhavesh amaya Work Phone: [facility] 03-21-2020 Covid (Moderna) Dr. Bhavesh amaya Work Phone: [facility] 12-20-2019 influenza virus vaccine, unspecified formulation Bhavesh Guerrero DO Work Phone: [facility] 12-20-2019 influenza, injectabl e, quadrivalent, preservative free Dr. Bhavesh Guerrero Work Phone: [facility] 12-20-2019 influenza, seasonal, injectable Dr. Bhavesh Guerrero Work Phone: [facility] 12-01-2019 hepatitis B vaccine, adult dosage Bhavesh Guerrero DO Work Phone: [facility] 12-01-2019 hepatitis B vaccine, unspecified formulation Collins Deleon MD Work Phone: [facility] 01-11-2019 influenza virus vaccine, unspecified formulation Bhavesh Guerrero DO Work Phone: [facility] 01-11-2019 influenza, injectabl e, quadrivalent, preservative free Dr. Bhavesh Guerrero Work Phone: [facility] 01-11-2019 influenza, seasonal, injectable Dr. Bhavesh Guerrero Work Phone: [facility] 12-27-2017 diphtheria, tetanus toxoids and acellular pertussis vaccine, unspecified formulation Bhavesh Guerrero DO Work Phone: [facility] 12-27-2017 tetanus toxoid, redu ivon diphtheria toxoid, and acellular pertussis vaccine, adsorbed Dr. Bhavesh Guerrero Work Phone: [facility] 12-18-2017 influenza virus vaccine, unspecified formulation Bhavesh Guerrero DO Work Phone: [facility] 12-18-2017 influenza, injectabl e, quadrivalent, preservative free Dr. Bhavesh Guerrero Work Phone: [facility] 12-18-2017 influenza, seasonal, injectable Dr. Bhavesh Guerrero Work Phone: [facility] 01-28-2017 influenza virus vaccine, unspecified formulation Bhavesh Guerrero DO Work Phone: [facility] 01-28-2017 influenza, injectabl e, quadrivalent, preservative free Dr. Bhavesh Guerrero Work Phone: [facility] 01-28-2017 influenza, seasonal, injectable Dr. Bhavesh Guerrero Work Phone: [facility] 12-21-2015 influenza virus vaccine, unspecified formulation Bhavesh Guerrero DO Work Phone: [facility] 12-21-2015 influenza, injectabl e, quadrivalent, preservative free Dr. Bhavesh Guerrero Work Phone: [facility] 12-21-2015 influenza, seasonal, injectable Dr. Bhavesh Guerrero Work Phone: [facility] 07-10-2015 tetanus toxoid, redu ivon diphtheria toxoid, and acellular pertussis vaccine, adsorbed Bhavesh Guerrero DO Work Phone: [facility] 03-05-2015 influenza virus vaccine, unspecified formulation Bhavesh Guerrero DO Work Phone: [facility] 03-05-2015 influenza, injectabl e, quadrivalent, preservative free Dr. Bhavesh Guerrero Work Phone: [facility] 03-05-2015 influenza, seasonal, injectable Dr. Bhavesh Guerrero Work Phone: [facility] 01-11-2014 influenza virus vaccine, unspecified formulation Bhavesh Soriawilliamluzmaria DO Work Phone: [facility] 01-11-2014 influenza, injectabl e, quadrivalent, contains preservative Bhavesh Soriawilliamluzmaria DO Work Phone: [facility] 01-11-2014 influenza, seasonal, injectable Rolando Ceballos DO Work Phone: [facility] 12-08-2013 influenza virus vaccine, unspecified formulation Bhavesh Soriaanisafiona DO Work Phone: [facility] 12-08-2013 influenza, injectabl e, quadrivalent, preservative free Dr. Bhavesh Guerrero Work Phone: [facility] 12-08-2013 influenza, seasonal, injectable Dr. Bhavesh Guerrero Work Phone: [facility] 01-20-[address] Bhavesh Guerrero Work Phone: [facility] 01-20-2013 influenza virus vaccine, unspecified formulation Bhavesh Soriaanisafiona DO Work Phone: [facility] 01-20-2013 Influenza, seasonal, injectable, preservative free Rolando Ceballos DO Work Phone: [facility] 12-03-2011 pneumococcal Conjuga te, unspecified formulation Bhavesh Soriawilliamluzmaria DO Work Phone: [facility] Payers Date Payer Category Payer Self-pay [id number] 2022 Commercial [facility] OSKAR ZAVALETA [id number] 2022 Private Health Insurance [id number] 2022 Unknown [id number] 2015 Unknown ANTHМАРИНА [id number] 1965 Unknown [id number]. 479 1965 Unknown [id number] 2.16.840.1.304412.3.579.2. 479 Unknown [facility] DO NOT USE 22 [id number] Unknown [id number] 2.16.840.1.412729.3.579.2. 462 Unknown [id number] 2.16.840.1.419465.3.579.2. 462 Unknown [id number] 2.16.840.1.126897.3.579.2. 462 Unknown [id number] 2.16.840.1.332047.3.579.2. 462 Unknown [id number] 2.16.840.1.114746.3.579.2. 462 Unknown [id number] 2.16.840.1.698109.3.579.2. 462 Unknown [id number] 2.16.840.1.769685.3.579.2. 462 Unknown [id number] 2.16.840.1.763870.3.579.2. 462 Unknown [id number] 2.16.840.1.636153.3.579.2. 462 Unknown [id number] 2.16.840.1.667256.3.579.2. 462 Unknown [id number] 2.16.840.1.445119.3.579.2. 462 Unknown [id number] 2.16.840.1.281893.3.579.2. 462 Unknown [id number] 2.16.840.1.279661.3.579.2. 462 Unknown [id number] 2.16.840.1.549736.3.579.2. 462 Unknown [id number] 2.16.840.1.184889.3.579.2. 462 Unknown [id number] 2.16.840.1.269044.3.579.2. 462 Unknown [id number] 2.16.840.1.308487.3.579.2. 462 Unknown [id number] 2.16840.1.471569.3.579.2. 462 Unknown [id number] 2.16.840.1.196333.3.579.2. 462 Unknown [id number] 2.16840.1.726467.3.579.2. 462 Unknown [id number] 2.16840.1.588155.3.579.2. 462 Social History Date Type Detail Facility Start: 03-27-2022 End: 01-12-2023 Tobacco smoking status [facility] Unknown if ever smoked [facility] Start: 1965 Sex Assigned At Female [facility] Start: 07-08-2022 End: 01-05-2024 Tobacco smoking status IDIS Ex-smoker [facility] End: 10-31-1994 History of tobacco use Current smoker [facility] End: 10-31-1994 History of tobacco use Cigarette Smoker [facility] Start: 07-08-2022 End: 01-05-2024 Cigarettes smoked current (pack per day) - Reported 1 [facility] Start: 07-08-2022 End: 01-05-2024 Tobacco use and exposure Smokeless tobacco non-user [facility] Start: 12-05-2021 End: 07-08-2022 Alcohol intake Current drinker of alcohol (finding) [facility] Start: 07-08-2022 End: 01-05-2024 Tobacco use panel [facility] Start: 1965 Sex Assigned At Not on file [facility] Start: 11-08-2022 End: 11-18-2022 Exposure to SARS-CoV-2 (event) Not sure [facility] Start: 03-26-2023 Gender identity Identifies as female gender (finding) [facility] Start: 03-26-2023 Sexual orientation Heterosexual (fin ding) [facility] Start: 01-05-2024 End: 09-28-2024 Alcoholic beverage intake Ex-drinker (finding) [facility] How often do you nee d to have someone help you when you read instructions, pamphlets, or other written material from your doctor or pharmacy [SILS] Never [facility] Has the [employer], oil, or water [employer] threatened to shut off services in your home in past 12Mo No [facility] Do you belong to any clubs or organizations such as anabaptist groups, unions, fraternal or athletic groups, or school groups? Yes [facility] Are you now , , , , never or living with a partner? [facility] How often to you hav e a drink containing alcohol? Monthly or less [facility] How often do you hav e 6 or more drinks on 1 occasion? Never [facility] How hard is it for y ou to pay for the very basics like food, housing, medical care, and heating Not very hard [facility] Do you feel stress - tense, restless, nervous, or anxious, or unable to sleep at night because your mind is troubled all the time - these days [OSQ] To some extent [facility] (I/We) worried wheth er (my/our) food would run out before (I/we) got money to buy more. Never true [facility] Start: 10-21-2021 Sex Female (finding) [facility]: [facility] Work Phone: NEGATED: [facility] Medical Equipment Procedure Code Equipment Code Equipment Origin al Text Equipment Identifier Dates Repair, hernia, umbilical, using mesh ([id number]) Extra-gynaecologic al surgical mesh, composite-polymer [id number] FDA Start: 03-25-2024 Goals Date Patient Goal Desired Activity /State Functional Status Date Assessment Result Facility 01-23-2023 Functional status Ambulates;Bathroom Priv ilege [facility] Work Phone: Mental Status Date Assessment Result Facility 04-28-2024 Cognitive function Awake;Alert;Appropriat e [facility] Work Phone: 01-23-2023 Cognitive function Voice/Name [facility] Work Phone: 03-31-2022 Cognitive function Voice/Name [facility] Work Phone: Clinical Notes 06-22-2020 to 09-28-2024 Addendum Note - Rolando Ceballos DO - 09/28/2024 12:04 PM EDTAddendum Note - Rolando Ceballos DO - 09/28/2024 12:04 PM EDTAddendum Note - Rolando Ceballos DO - 09/28/2024 12:04 PM EDTAttachments Note Date & Type Note Facility 09-28-2024 Note Addended by: ROLANDO GARY on: 09/28/2024 12:04 PM Modules accepted: Orders [facility] 09-28-2024 Note Addended by: ROLANDO GARY on: 09/28/2024 12:04 PM Modules accepted: Orders [facility] 09-28-2024 Miscellaneous Notes Addended by: ROLANDO CEBALLOS on: 09/28/2024 12:04 PM Modules accepted: Orders Addended by: ALONSO RATLIFF on: 09/28/2024 07:37 AM Modules accepted: Orders Referral to Dietitian pended for dx and doctor's signature Ordered faxed to [facility] Call this patient and forward the copy of the hemoglobin A1c and glucose level that I ordered in July. I believe she might want to get that done at [facility]. she also would like referral to dietitian. documented in this encounter [facility] 09-28-2024 Note Addended by: ALONSO RATLIFF on: 09/28/2024 07:37 AM Modules accepted: Orders [facility] 09-28-2024 Note Addended by: ALONSO RATLIFF on: 09/28/2024 07:37 AM Modules accepted: Orders [facility] 09-28-2024 Telephone encounter Note Referral to Dietitian pended for dx and doctor's signature [facility] 09-28-2024 Telephone encounter Note Ordered faxed to [facility] 09-27-2024 Telephone encounter Note Call this patient and forward the copy of the hemoglobin A1c and glucose level that I ordered in July. I believe she might want to get that done at [facility]. she also would like referral to dietitian. [facility] 08-29-2024 Telephone encounter Note Spoke with patient and advised, patient voiced understanding. Patient is already scheduled for next available 11/02/24 4:40PM. [facility] 08-29-2024 Miscellaneous Notes Spoke with patient and advised, patient voiced understanding. Patient is already scheduled for next available 11/02/24 4:40PM. Pt was also left a message to return call to the office if she has any questions. Name of caller: Jen Contact phone number: [phone] Relationship to Patient: patient Provider: Dr Ceballos Practice: [facility] Chief Complaint/Reason for Call: Patient requesting a callback to advise if her lab results and US images were received. Thank you Best time of day caller can be reached: any Patient advised that office/PCP has 24-48 business hours to return their call: Yes Pt scheduled Reference 08/23/24 ItsGoinOn Message Name of caller: Amaris Holder Contact phone number: [phone] Relationship to Patient: Patient Provider: Rolando Ceballos [facility] Chief Complaint/Reason for Call: Patient states she re-faxed Allopurinol labs from [facility] again? Did you receive? (Not in Media Tab as of this writing). If not, please call hospital direct to have re-faxed. Patient needs 6 week follow-up on/around 10/04/24. Patient was offered numerous openings end of September/into October but states she must have early Tu morning; does not want to wait and wants an early Tu morning appointment. Per office, there is nowhere to schedule her at this time except what is in system. Patient refused to book and be wait-listed. Please advise how to schedule. Best time of day caller can be reached: any Patient advised that office/PCP has 24-48 business hours to return their call: Yes documented in this encounter [facility] 08-25-2024 Telephone encounter Note Pt was also left a message to return call to the office if she has any questions. [facility] 08-25-2024 Miscellaneous Notes Pt was also left a message to return call to the office if she has any questions. Name of caller: Jen Contact phone number: [phone] Relationship to Patient: patient Provider: Dr Ceballos Practice: [facility] Chief Complaint/Reason for Call: Patient requesting a callback to advise if her lab results and US images were received. Thank you Best time of day caller can be reached: any Patient advised that office/PCP has 24-48 business hours to return their call: Yes Pt scheduled Reference 08/23/24 Mychart Message Name of caller: Amaris Holder Contact phone number: [phone] Relationship to Patient: Patient Provider: Rolando Ceballos Practice: [facility] Chief Complaint/Reason for Call: Patient states she re-faxed Allopurinol labs from [facility] again? Did you receive? (Not in Media Tab as of this writing). If not, please call hospital direct to have re-faxed. Patient needs 6 week follow-up on/around 10/04/24. Patient was offered numerous openings end of September/into October but states she must have early Tu morning; does not want to wait and wants an early Tu morning appointment. Per office, there is nowhere to schedule her at this time except what is in system. Patient refused to book and be wait-listed. Please advise how to schedule. Best time of day caller can be reached: any Patient advised that office/PCP has 24-48 business hours to return their call: Yes documented in this encounter [facility] 08-25-2024 Telephone encounter Note Name of caller: Jen Contact phone number: [phone] Relationship to Patient: patient Provider: Dr Ceballos Practice: [facility] Chief Complaint/Reason for Call: Patient requesting a callback to advise if her lab results and US images were received. Thank you Best time of day caller can be reached: any Patient advised that office/PCP has 24-48 business hours to return their call: Yes [facility] 08-23-2024 Telephone encounter Note Pt scheduled [facility] 08-23-2024 Telephone encounter Note Reference 08/23/24 ItsGoinOn Message Name of caller: Amaris Holder Contact phone number: [phone] Relationship to Patient: Patient Provider: Rolando Ceballos Practice: [facility] Chief Complaint/Reason for Call: Patient states she re-faxed Allopurinol labs from [facility] again? Did you receive? (Not in Media Tab as of this writing). If not, please call hospital direct to have re-faxed. Patient needs 6 week follow-up on/around 10/04/24. Patient was offered numerous openings end of September/into October but states she must have early morning; does not want to wait and wants an early morning appointment. Per office, there is nowhere to schedule her at this time except what is in system. Patient refused to book and be wait-listed. Please advise how to schedule. Best time of day caller can be reached: any Patient advised that office/PCP has 24-48 business hours to return their call: Yes T Stroz [facility]berg 08-17-2024 Miscellaneous Notes [facility] Speech-Language Pathology Progress Note 08/17/2024 Patient Name: Jen Holder Date of : 03/10/2005 Age: 1 1965 MR#: [id number] Session Type: individual; vocal cord dysfunction Length of Session: 40 minutes Pain Scale: NPR Referring Physician: Collins Kemp for Severity & Performance Levels: 1 Total assistance required/<=25% accuracy 2 Maximal assistance required/25-49% accuracy 3 Moderate assistance required/50-74% accuracy 4 Minimal assistance required/75-89% accuracy 5 Standby assistance required/approx. 90% accuracy 6 Modified independence >=91% accuracy 7 Independent/ consistently accurate N/A Not Addressed Short Term Objectives Progress 1. Jen Holder will complete metered diaphragmatic breathing exercises with minimal cues for 5 minutes in supine, sitting, and standing positions. Goal Met Discussed slowing breathing due to concerns regarding becoming light headed 2. Jen Holder will utilize lower abdominal breath support during light exertion (fast walk, slow jog, jumping jacks, stairs, etc) with 80% accuracy. Adequate Light walking during session. Dicussed practicing standing for 2-3 minutes prior to ascending stairs and taking a short walk in the evenings. 3. Jen Holder will demonstrate increased awareness of breathing and implement learned strategies when prompted. Limited Additional Comments: Amaris is having gall bladder issues and will be scheduled surgery to remove it next week. Plan to see her after surgery to make sure she is still progressing with using metered breathing techniques. If Jen Holder is discharged prior to the next treatment, consider this note the most recent progress report and discharge summary. Plan: 1. Continue use of metered breathing exercises with diaphragmatic breath support to control symptoms of vocal cord dysfunction. Follow-up: 1. TBD Patient will call to set up approximately 1 month after gall bladder surgery is completed. Dottie Escudero M.A., CCC-[employer] INTERVIEWER Speech-Language Pathologist [phone] documented in this encounter [facility] 08-17-2024 Progress note Formatting of t his note is different from the original. [facility] Speech-Language Pathology Progress Note 08/17/2024 Patient Name: Jen Holder Date of : 03/10/2005 Age: 1 1965 MR#: [id number] Session Type: individual; vocal cord dysfunction Length of Session: 40 minutes Pain Scale: NPR Referring Physician: Collins Kemp for Severity & Performance Levels: 1 Total assistance required/<=25% accuracy 2 Maximal assistance required/25-49% accuracy 3 Moderate assistance required/50-74% accuracy 4 Minimal assistance required/75-89% accuracy 5 Standby assistance required/approx. 90% accuracy 6 Modified independence >=91% accuracy 7 Independent/ consistently accurate N/A Not Addressed Short Term Objectives Progress 1. Jen Holder will complete metered diaphragmatic breathing exercises with minimal cues for 5 minutes in supine, sitting, and standing positions. Goal Met Discussed slowing breathing due to concerns regarding becoming light headed 2. Jen Holder will utilize lower abdominal breath support during light exertion (fast walk, slow jog, jumping jacks, stairs, etc) with 80% accuracy. Adequate Light walking during session. Dicussed practicing standing for 2-3 minutes prior to ascending stairs and taking a short walk in the evenings. 3. Jen Holder will demonstrate increased awareness of breathing and implement learned strategies when prompted. Limited Additional Comments: Amaris is having gall bladder issues and will be scheduled surgery to remove it next week. Plan to see her after surgery to make sure she is still progressing with using metered breathing techniques. If Jen Holder is discharged prior to the next treatment, consider this note the most recent progress report and discharge summary. Plan: 1. Continue use of metered breathing exercises with diaphragmatic breath support to control symptoms of vocal cord dysfunction. Follow-up: 1. TBD Patient will call to set up approximately 1 month after gall bladder surgery is completed. Dottie Escudero M.A., CCC-[employer] INTERVIEWER Speech-Language Pathologist [phone] [facility] 08-12-2024 Radiology Diagnostic study note [facility] Imaging Services [address] [place], [place] [address] Abdomen Limited MR#: [id number] Acct: [id number] Name: JEN HOLDER Rep #: [id number] : 1965 F 59 From: Edilberto Fowler MD PCP: Dr. Rolando Ceballos DO Status: RE G CLI Study:Abdomen Limited Date of Exam: 07/22 06/14 Exam# [id number] Ordering Dr: Rolando Ceballos DO PROCEDURE: ABDOMEN LIMITED N/A REASON FOR EXAM: CHEST PAIN, HX OF GALLSTONES COMPARISON: Prior ultrasound dated August 06, 2021. FINDINGS: Liver: Diffusely echogenic suggesting fatty infiltration. Hepatomegaly. It measures 18.9 cm. Gallbladder: There is a 2 cm x 2.3 cm x 1.9 cm solitary gallstone in the neck ofthe gallbladder. The gallbladder wall measures 3 mm. Common bile duct: Normal measuring 4 mm. . Pancreas: Normal Other: Normal right kidney. US/Abdomen Limited IMPRESSION: Solitary gallstone measuring 2 cm x 2.3 cm 1.9 cm in the neck of the gallbladder. Hepatomegaly and diffuse fatty infiltration of the liver. Reading Location: [facility] CC: Dr. Rolando Ceballos DO ~ Maternity Floor Supervisor: Signed [facility] 08-08-2024 Note Sinus tachycardia Borderline left axis deviation Abnormal R-wave progression, late transition Borderline repolarization abnormality Borderline prolonged QT interval Electronically Signed On 08-08-2024 03:24:35 EDT by Laquita COHEN 08-08-2024 Note Sinus tachycardia Borderline left axis deviation Abnormal R-wave progression, late transition Borderline repolarization abnormality Borderline prolonged QT interval Electronically Signed On 08-08-2024 03:24:35 EDT by Laquita Foley [facility] 08-08-2024 Note Sinus tachycardia Borderline left axis deviation Abnormal R-wave progression, late transition Borderline repolarization abnormality Borderline prolonged QT interval Electronically Signed On 08-08-2024 03:24:35 EDT by Laquita Foley [facility] 08-08-2024 Note Sinus tachycardia Borderline left axis deviation Abnormal R-wave progression, late transition Borderline repolarization abnormality Borderline prolonged QT interval Electronically Signed On 08-08-2024 03:24:35 EDT by Laquita Foley [facility] 08-08-2024 Note IMPRESSION: Sinus tachycardia Borderline left axis deviation Abnormal R-wave progression, late transition Borderline repolarization abnormality Borderline prolonged QT interval Electronically Signed On 08-08-2024 03:24:35 EDT by Laquita [facility] 08-07-2024 Emergency department Note Pt discharged for home with information on follow-up discussed. Pt states understanding. [facility] 08-07-2024 Emergency department Note Pt discharged for home with information on follow-up discussed. Pt states understanding. Images from the original note were not included. Emergency Department Encounter [facility] Patient: Jen Holder : 1965 Date of Evaluation: 08/07/2024 ED BHASKAR Provider: Ramya Lloyd PA-C Patient seen independently within my scope of practice with an Emergency Medicine attending available for supervision. Chief Complaint: Chief Complaint Patient presents with Chest Pain Pt arrived from home with midsternal chest pain for the last hour. Pt with pain 6/10. Pt states she had an abnormal EKG a few months ago but it was cleared. History of Present Illness: Jen Holder is a 59 y.o. female with past medical history of gout, GERD, cholelithiasis, UC who presented to the emergency department for evaluation of chest pressure. States it started approximately an hour prior to arrival, feels like a pressure in the middle of her chest that is not moved. States that she was just sitting there when it started, denies any trouble breathing. Patient states that she had an abnormal EKG a few months ago, and then had a cardiac workup because of it. Patient states he was not experiencing any chest pain at that time. Denies any nausea or vomiting. Denies any lightheadedness or dizziness. Denies any extremity pain or swelling Nursing notes were reviewed. Limitations to history: Outside historians: Review of Systems: Positives and pertinent negatives as per HPI. All other systems were reviewed and are acutely negative except as noted. Past History: Medical History[1] Surgical History[2] Social History[3] Medications/Allergies: Previous Medications CALCIUM CARBONATE 1500 (600 CA) MG TABLET Take by mouth. CHOLECALCIFEROL (D3-5) 5,000 UNITS TABLET CYANOCOBALAMIN (VITAMIN B 12 PO) Take by mouth. FOLIC ACID (FOLVITE) 1 MG TABLET LACTOBACILLUS PROBIOTIC PO Take by mouth. OMEPRAZOLE (PRILOSEC) [address] CAPSULE Take 40 mg by mouth every morning (before breakfast). POTASSIUM 99 MG TABLET Take by mouth. THERAPEUTIC MULTIVITAMIN-MINERALS (THERAGRAN-M) TABLET Take 1 tablet by mouth daily. TRAZODONE (DESYREL) 50 MG TABLET Take 1 tablet (50 mg) by mouth Nightly as needed for sleep. TRIAMCINOLONE (KENALOG) 0.5 % CREAM Apply topically 2 times daily. Allergies[4] Physical Exam: ED Triage Vitals [08/07/24 1719] Temp Heart Rate Resp BP 36.8 C (98.3 F) 107 18 (!) 162/114 SpO2 Temp Source Heart Rate Source Patient Position 96 % Temporal Monitor -- BP Location FiO2 (%) -- -- Physical Exam Vitals and nursing note reviewed. Constitutional: General: She is not in acute distress. Appearance: She is well-developed. HENT: Head: Normocephalic and atraumatic. Eyes: Conjunctiva/sclera: Conjunctivae normal. Cardiovascular: Rate and Rhythm: Normal rate and regular rhythm. Heart sounds: No murmur heard. Pulmonary: Effort: Pulmonary effort is normal. No respiratory distress. Breath sounds: Normal breath sounds. Abdominal: Palpations: Abdomen is soft. Tenderness: There is no abdominal tenderness. There is no guarding. Negative signs include Miranda's sign. Musculoskeletal: General: No swelling. Cervical back: Neck supple. Skin: General: Skin is warm and dry. Capillary Refill: Capillary refill takes less than 2 seconds. Neurological: Mental Status: She is alert. Psychiatric: Mood and Affect: Mood normal. Screenings: HEART Score History: Slightly suspicious ECG: Normal Age: 45-64 Risk Factors: 1-2 risk factors Troponin: Less than or equal to normal limit HEART Score: 2 Patients symptoms are consistent with sepsis, severe sepsis, or septic shock (If yes use .sepsiscoremeasure): Diagnostics: Labs: Labs Reviewed BASIC METABOLIC PANEL - Abnormal Result Value SODIUM 140 POTASSIUM 3.8 CHLORIDE 108 (*) CARBON DIOXIDE 22 UREA NITROGEN 21 CREATININE 0.73 GLUCOSE 215 (*) CALCIUM 8.8 ANION GAP 10 eGFR >90.0 HEPATIC FUNCTION PANEL - Abnormal BILIRUBIN, TOTAL 0.3 BILIRUBIN, DIRECT 0.1 ALKALINE PHOSPHATASE 115 AST (SGOT) 35 (*) ALT 48 (*) ALBUMIN 3.4 (*) TOTAL PROTEIN 6.9 CBC WITH AUTO DIFFERENTIAL - Normal Auto WBC 10.5 RBC 4.36 Hemoglobin 12.8 Hematocrit 39.1 MCV 89.7 MCH 29.4 MCHC 32.7 RDW 12.5 Platelets 331 MPV 11.0 nRBC 0.0 Neutrophils Relative 67.5 Lymphocytes Relative 23.6 Monocytes Relative 6.0 Eosinophils Relative 1.9 Basophils Relative 0.7 Immature Grans % 0.3 Neutrophils Absolute 7.1 Lymphocytes Absolute 2.5 Monocytes Absolute 0.6 Eosinophils Absolute 0.2 Basophils Absolute 0.1 Immature Grans Absolute 0.0 HIGH SENSITIVITY TROPONIN, SERIAL BASELINE - Normal Troponin HS Serial Baseline 4 D-DIMER,QUANTITATIVE - Normal D-DIMER, INNOVANCE 0.42 Narrative: Innovance D-Dimer values of <0.50 mg/L FEU can be used in combination with a pre-test probability model (e.g. Well's) to exclude pulmonary embolism (PE) disease, as well as an aid in the diagnosis of deep vein thrombosis (DVT). LIPASE - Normal LIPASE 44 HIGH SENSITIVITY TROPONIN, SERIAL, SECOND TEST - Normal 2h Troponin HS (Serial 2nd Troponin) 4 Radiographs: XR chest 1 view Final Result 1. Lines/Tubes/Devices/Hardware: None. Please confirm position and function of any catheters or attempted catheters clinically. 2. Lungs: No convincing acute process.. Consider follow-up with PA and lateral chest for persistent symptoms. 3. Pleura: No convincing significant effusion. No significant pneumothorax. 4. Heart and mediastinum: No convincing acute process. 5. Upper abdomen: No convincing acute process seen. 6. Thorax:No convincing acute bony process Comment: Please note this report has been produced using speech recognition software and may contain errors related to that system including errors in grammar, punctuation, and spelling as well as words and phrases that may be inappropriate. If there are any questions or concerns please feel free to contact the dictating provider for clarification Report Dictated on Electronically Signed By: Francisco Cochran MD Electronically Signed Date/Time: 08/07/2024 6:18 PM EDT Procedures: Procedures EKG: All EKG's are interpreted by the Emergency Department Physician in the absence of a continuous improvement lead. Please see Epiphany for interpretation of EKG. Emergency Department Course and Medical Decision Making In brief, Jen Holder is a 59 y.o. female who presented to the emergency department for evaluation of chest pain. Physical exam as above, patient nontoxic in appearance. Vital signs upon arrival show patient is hypertensive External records reviewed: Reviewed patient's visit with her primary care doctor on 08/02/2024, they reviewed her coronary CTA and echocardiogram results at that time. Her echocardiogram had some slight diastolic dysfunction, CTA of the coronaries was unremarkable. EKG today is identical to previous, there is no acute ischemic changes, no arrhythmias Differential considerations included ACS, pulmonary embolism, pneumonia, cholecystitis, pancreatitis, peptic ulcer disease, GERD Initial workup includes EKG is unchanged from earlier this year, initial troponin is 4, BMP shows patient is hyperglycemic at 215. Does not have a history of diabetes, hepatic function panel shows mildly elevated AST ALT, bilirubin is normal, lipase is normal, low suspicion for acute gallbladder pathology, and is not having significant pain in right upper quadrant. D-dimer is negative, CBC is benign. Patient will need to follow-up with her PCP in regards to the hyperglycemia and chest pain. MEDICAL DECISION MAKING: I considered, but did not perform, additional testing such CT Angiogram, as well as admission or transfer to a higher level of care. I utilized an evidence-based risk rating tool (CMT) along with my training and experience to weigh the risk of discharge against the risks of further testing, imaging, or hospitalization. At this time, I estimate the risks of additional testing, imaging, or hospitalization to be equal to or greater than the risk of discharge(in the case of discharge home). The patient's HEART Score is <4. In rare cases, I give patients with HEART Score of 4 the option of discharge, but only when they meet criteria for Low 4, meaning that HST was used, and the 4 is not from a highly suspicious story, highly suspicious EKG, or positive cardiac enzymes. In these selected cases, the risk of a Low 4 is still most likely lower than the risk of admission and further testing/imaging. [id number] SHARED DECISION MAKING: I discussed my risk assessment with the patient. The patient understands and consents to the risk of disposition/plan, as well as the risk of uncertainty in estimating outcomes. [id number] See below for follow up instructions and discharge medications. Patient instructed to return to ED for new or worsening symptoms. Discussed signs/symptoms most concerning that necessitate immediate return. Patient is understanding and agreeable to stated plan. All questions addressed. Jen Holder and myself have engaged in Shared Decision Making to ensure adequate and appropriate information was provided to Jen Holder to assist them in choosing a course of treatment based on their own preferences and concerns. MDM elements: Diagnostic tests considered but not performed: Diagnostics interpreted by me: Discussions with other clinicians: Chronic conditions impacting care: Social determinants of health affecting care: . ED Medications managed: Medications aspirin chewable tablet 324 mg (324 mg Oral Given 08/07/24 1800) Prescription drugs considered: Critical Care: None Consults: None FINAL IMPRESSION 1. Chest pain, unspecified type 2. Hyperglycemia DISPOSITION: Discharge 08/07/2024 08:45:43 PM PATIENT REFERRED TO: Rolando Ceballos DO [address] [facility] [address] Call [facility] [address] [facility] [address] Go to If symptoms worsen DISCHARGE MEDICATIONS: New Prescriptions No medications on file Ramya Lloyd PA-C Acute Care [facility] [1] Past Medical History: Diagnosis Date Allergic rhinitis stopped immunotherapy 2005 Breast cancer screening 03/2024 Dr. Fraga in past, needs phys exam Cholelithiasis relatively asx Eczema Encounter for gynecological examination Dr. Medrano/Renard Family history of diabetes mellitus mother Gout 11/2023 feet H/O colonoscopy 03/2022 Dr. Thomas vizcarra 03/2024 History of Clostridioides difficile infection 2018 ? 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 Wesley Renal stones [address] Ulcerative colitis (HCC) 2000 Fior/Roseann/Gildardo Vocal cord dysfunction 2019 Dr. Lupillo FORRESTER [2] Past Surgical History: Procedure Laterality Date ANKLE FRACTURE SURGERY Right 2011 ORIF COLONOSCOPY 2019 COLONOSCOPY 2016 COLONOSCOPY 03/31/2022 Congestion mucosa recto-sigmoid and sigmoid. Dr. Thomas vizcarra 04/16 COLONOSCOPY W/ BIOPSIES 2019 Dr Ewing CYSTOSCOPY 2018 Normal LIPOMA RESECTION 2016 recurrence per Fior LIPOMA RESECTION 2014 right shoulder times 2 per Jeffrey PARTIAL HYSTERECTOMY 2016 hyst with US for fibroids RHINOPLASTY 2006 & sinoplasty UMBILICAL HERNIA REPAIR 03/2024 [facility] [3] Social History Socioeconomic History Marital status: Tobacco Use Smoking status: Former Current packs/day: 0.00 Types: Cigarettes Quit date: 10/31/1994 Years since quittin.7 Smokeless tobacco: Never Substance and Sexual Activity Alcohol use: Not Currently Drug use: No Social History Narrative to [employer],(retired due to traumatic accident) one son lives at home age 29, 2 stepsons. 4 GD. [employer] former smoker quit 95 or xs ETOH use. Social Drivers of Health Financial Resource Strain: Low Risk (01/05/2024) Overall Financial Resource Strain (CARDIA) Difficulty of Paying Living Expenses: Not very hard Food Insecurity: No Food Insecurity (01/05/2024) Hunger Vital Sign Worried About Running Out of Food in the Last Year: Never true Ran Out of Food in the Last Year: Never true Transportation Needs: No Transportation Needs (01/05/2024) PRAPARE - Transportation Lack of Transportation (Medical): No Lack of Transportation (Non-Medical): No Physical Activity: Inactive (01/05/2024) Exercise Vital Sign Days of Exercise per Week: 0 days Minutes of Exercise per Session: 0 min Stress: Stress Concern Present (01/05/2024) [employer] - Occupational Stress Questionnaire Feeling of Stress : To some extent Social Connections: Socially Integrated (01/05/2024) Social Connection and Isolation Panel [NHANES] Frequency of Communication with Friends and Family: More than three times a week Frequency of Social Gatherings with Friends and Family: More than three times a week Attends Voodoo Services: More than 4 times per year Active Member of Clubs or Organizations: Yes Attends Club or Organization Meetings: More than 4 times per year Marital Status: Intimate Partner Violence: Not At Risk (01/05/2024) Humiliation, Afraid, Rape, and Kick questionnaire Fear of Current or Ex-Partner: No Emotionally Abused: No Physically Abused: No Sexually Abused: No Housing Stability: Unknown (01/05/2024) Housing Stability Vital Sign Unable to Pay for Housing in the Last Year: No Homeless in the Last Year: No [4] Allergies Allergen Reactions Gadolinium Dizziness Nausea Latex Itching Swelling redness Oxycodone Itching Sulfa Antibiotics Nausea Only Other reaction(s): Leukocytosis (elevated number Ramya Lloyd PA-C 08/07/24 2101 documented in this encounter [facility] 08-07-2024 Hospital Discharge instructions Ramya Lloyd PA-C - 08/07/2024 8:45 PM EDT Follow-up with your primary care doctor in regards to your chest pain as well as your high blood sugar. Return to the ER if experience any worsening symptoms. The following attachments cannot be sent through Care Everywhere.Chest Pain Discharge Instructions (Luxembourgish)High Blood Sugar, Adult ED (Luxembourgish)documented in this encounter [facility] 08-07-2024 Physician Emergency department Note Images from the original note were not included. Emergency Department Encounter [facility] Patient: Jen Holder : 1965 Date of Evaluation: 08/07/2024 ED BHASKAR Provider: Ramya Lloyd PA-C Patient seen independently within my scope of practice with an Emergency Medicine attending available for supervision. Chief Complaint: Chief Complaint Patient presents with Chest Pain Pt arrived from home with midsternal chest pain for the last hour. Pt with pain 6/10. Pt states she had an abnormal EKG a few months ago but it was cleared. History of Present Illness: Jen Holder is a 59 y.o. female with past medical history of gout, GERD, cholelithiasis, UC who presented to the emergency department for evaluation of chest pressure. States it started approximately an hour prior to arrival, feels like a pressure in the middle of her chest that is not moved. States that she was just sitting there when it started, denies any trouble breathing. Patient states that she had an abnormal EKG a few months ago, and then had a cardiac workup because of it. Patient states he was not experiencing any chest pain at that time. Denies any nausea or vomiting. Denies any lightheadedness or dizziness. Denies any extremity pain or swelling Nursing notes were reviewed. Limitations to history: Outside historians: Review of Systems: Positives and pertinent negatives as per HPI. All other systems were reviewed and are acutely negative except as noted. Past History: Medical History[1] Surgical History[2] Social History[3] Medications/Allergies: Previous Medications CALCIUM CARBONATE 1500 (600 CA) MG TABLET Take by mouth. CHOLECALCIFEROL (D3-5) 5,000 UNITS TABLET CYANOCOBALAMIN (VITAMIN B 12 PO) Take by mouth. FOLIC ACID (FOLVITE) 1 MG TABLET LACTOBACILLUS PROBIOTIC PO Take by mouth. OMEPRAZOLE (PRILOSEC) [address] CAPSULE Take 40 mg by mouth every morning (before breakfast). POTASSIUM 99 MG TABLET Take by mouth. THERAPEUTIC MULTIVITAMIN-MINERALS (THERAGRAN-M) TABLET Take 1 tablet by mouth daily. TRAZODONE (DESYREL) 50 MG TABLET Take 1 tablet (50 mg) by mouth Nightly as needed for sleep. TRIAMCINOLONE (KENALOG) 0.5 % CREAM Apply topically 2 times daily. Allergies[4] Physical Exam: ED Triage Vitals [08/07/24 1719] Temp Heart Rate Resp BP 36.8 C (98.3 F) 107 18 (!) 162/114 SpO2 Temp Source Heart Rate Source Patient Position 96 % Temporal Monitor -- BP Location FiO2 (%) -- -- Physical Exam Vitals and nursing note reviewed. Constitutional: General: She is not in acute distress. Appearance: She is well-developed. HENT: Head: Normocephalic and atraumatic. Eyes: Conjunctiva/sclera: Conjunctivae normal. Cardiovascular: Rate and Rhythm: Normal rate and regular rhythm. Heart sounds: No murmur heard. Pulmonary: Effort: Pulmonary effort is normal. No respiratory distress. Breath sounds: Normal breath sounds. Abdominal: Palpations: Abdomen is soft. Tenderness: There is no abdominal tenderness. There is no guarding. Negative signs include Miranda's sign. Musculoskeletal: General: No swelling. Cervical back: Neck supple. Skin: General: Skin is warm and dry. Capillary Refill: Capillary refill takes less than 2 seconds. Neurological: Mental Status: She is alert. Psychiatric: Mood and Affect: Mood normal. Screenings: HEART Score History: Slightly suspicious ECG: Normal Age: 45-64 Risk Factors: 1-2 risk factors Troponin: Less than or equal to normal limit HEART Score: 2 Patients symptoms are consistent with sepsis, severe sepsis, or septic shock (If yes use .sepsiscoremeasure): Diagnostics: Labs: Labs Reviewed BASIC METABOLIC PANEL - Abnormal Result Value SODIUM 140 POTASSIUM 3.8 CHLORIDE 108 (*) CARBON DIOXIDE 22 UREA NITROGEN 21 CREATININE 0.73 GLUCOSE 215 (*) CALCIUM 8.8 ANION GAP 10 eGFR >90.0 HEPATIC FUNCTION PANEL - Abnormal BILIRUBIN, TOTAL 0.3 BILIRUBIN, DIRECT 0.1 ALKALINE PHOSPHATASE 115 AST (SGOT) 35 (*) ALT 48 (*) ALBUMIN 3.4 (*) TOTAL PROTEIN 6.9 CBC WITH AUTO DIFFERENTIAL - Normal Auto WBC 10.5 RBC 4.36 Hemoglobin 12.8 Hematocrit 39.1 MCV 89.7 MCH 29.4 MCHC 32.7 RDW 12.5 Platelets 331 MPV 11.0 nRBC 0.0 Neutrophils Relative 67.5 Lymphocytes Relative 23.6 Monocytes Relative 6.0 Eosinophils Relative 1.9 Basophils Relative 0.7 Immature Grans % 0.3 Neutrophils Absolute 7.1 Lymphocytes Absolute 2.5 Monocytes Absolute 0.6 Eosinophils Absolute 0.2 Basophils Absolute 0.1 Immature Grans Absolute 0.0 HIGH SENSITIVITY TROPONIN, SERIAL BASELINE - Normal Troponin HS Serial Baseline 4 D-DIMER,QUANTITATIVE - Normal D-DIMER, INNOVANCE 0.42 Narrative: Innovance D-Dimer values of <0.50 mg/L FEU can be used in combination with a pre-test probability model (e.g. Well's) to exclude pulmonary embolism (PE) disease, as well as an aid in the diagnosis of deep vein thrombosis (DVT). LIPASE - Normal LIPASE 44 HIGH SENSITIVITY TROPONIN, SERIAL, SECOND TEST - Normal 2h Troponin HS (Serial 2nd Troponin) 4 Radiographs: XR chest 1 view Final Result 1. Lines/Tubes/Devices/Hardware: None. Please confirm position and function of any catheters or attempted catheters clinically. 2. Lungs: No convincing acute process.. Consider follow-up with PA and lateral chest for persistent symptoms. 3. Pleura: No convincing significant effusion. No significant pneumothorax. 4. Heart and mediastinum: No convincing acute process. 5. Upper abdomen: No convincing acute process seen. 6. Thorax:No convincing acute bony process Comment: Please note this report has been produced using speech recognition software and may contain errors related to that system including errors in grammar, punctuation, and spelling as well as words and phrases that may be inappropriate. If there are any questions or concerns please feel free to contact the dictating provider for clarification Report Dictated on Electronically Signed By: Francisco Cochran MD Electronically Signed Date/Time: 08/07/2024 6:18 PM EDT Procedures: Procedures EKG: All EKG's are interpreted by the Emergency Department Physician in the absence of a continuous improvement lead. Please see Epiphany for interpretation of EKG. Emergency Department Course and Medical Decision Making In brief, Jen Holder is a 59 y.o. female who presented to the emergency department for evaluation of chest pain. Physical exam as above, patient nontoxic in appearance. Vital signs upon arrival show patient is hypertensive External records reviewed: Reviewed patient's visit with her primary care doctor on 08/02/2024, they reviewed her coronary CTA and echocardiogram results at that time. Her echocardiogram had some slight diastolic dysfunction, CTA of the coronaries was unremarkable. EKG today is identical to previous, there is no acute ischemic changes, no arrhythmias Differential considerations included ACS, pulmonary embolism, pneumonia, cholecystitis, pancreatitis, peptic ulcer disease, GERD Initial workup includes EKG is unchanged from earlier this year, initial troponin is 4, BMP shows patient is hyperglycemic at 215. Does not have a history of diabetes, hepatic function panel shows mildly elevated AST ALT, bilirubin is normal, lipase is normal, low suspicion for acute gallbladder pathology, and is not having significant pain in right upper quadrant. D-dimer is negative, CBC is benign. Patient will need to follow-up with her PCP in regards to the hyperglycemia and chest pain. MEDICAL DECISION MAKING: I considered, but did not perform, additional testing such CT Angiogram, as well as admission or transfer to a higher level of care. I utilized an evidence-based risk rating tool (CMT) along with my training and experience to weigh the risk of discharge against the risks of further testing, imaging, or hospitalization. At this time, I estimate the risks of additional testing, imaging, or hospitalization to be equal to or greater than the risk of discharge(in the case of discharge home). The patient's HEART Score is <4. In rare cases, I give patients with HEART Score of 4 the option of discharge, but only when they meet criteria for Low 4, meaning that HST was used, and the 4 is not from a highly suspicious story, highly suspicious EKG, or positive cardiac enzymes. In these selected cases, the risk of a Low 4 is still most likely lower than the risk of admission and further testing/imaging. [id number] SHARED DECISION MAKING: I discussed my risk assessment with the patient. The patient understands and consents to the risk of disposition/plan, as well as the risk of uncertainty in estimating outcomes. [id number] See below for follow up instructions and discharge medications. Patient instructed to return to ED for new or worsening symptoms. Discussed signs/symptoms most concerning that necessitate immediate return. Patient is understanding and agreeable to stated plan. All questions addressed. Jen Holder and myself have engaged in Shared Decision Making to ensure adequate and appropriate information was provided to Jen Holder to assist them in choosing a course of treatment based on their own preferences and concerns. MDM elements: Diagnostic tests considered but not performed: Diagnostics interpreted by me: Discussions with other clinicians: Chronic conditions impacting care: Social determinants of health affecting care: . ED Medications managed: Medications aspirin chewable tablet 324 mg (324 mg Oral Given 08/07/24 1800) Prescription drugs considered: Critical Care: None Consults: None FINAL IMPRESSION 1. Chest pain, unspecified type 2. Hyperglycemia DISPOSITION: Discharge 08/07/2024 08:45:43 PM PATIENT REFERRED TO: Rolando Ceballos, [address] [facility] [address] Call [facility] [address] [facility] [address] Go to If symptoms worsen DISCHARGE MEDICATIONS: New Prescriptions No medications on file Ramya Lloyd PA-C Acute Care [facility] [1] Past Medical History: Diagnosis Date Allergic rhinitis stopped immunotherapy 2006 Breast cancer screening 03/2024 Dr. Fraga in past, needs phys exam Cholelithiasis relatively asx Eczema Encounter for gynecological examination Dr. Medrano/Renard Family history of diabetes mellitus mother Gout 11/2023 feet H/O colonoscopy 03/2022 Dr. Thomas vizcarra 03/2024 History of Clostridioides difficile infection 2017 ? 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 Wesley Renal stones [address] Ulcerative colitis (HCC) 2000 Fior/Roseann/Gildardo Vocal cord dysfunction 2019 Dr. Lupillo [facility]RESTER [2] Past Surgical History: Procedure Laterality Date ANKLE FRACTURE SURGERY Right 2011 ORIF COLONOSCOPY 2019 COLONOSCOPY 2016 COLONOSCOPY 03/31/2022 Congestion mucosa recto-sigmoid and sigmoid. Dr. Thomas vizcarra 04/16 COLONOSCOPY W/ BIOPSIES 2019 Dr Ewing CYSTOSCOPY 2018 Normal LIPOMA RESECTION 2016 recurrence per Fior LIPOMA RESECTION 2014 right shoulder times 2 per Jeffrey PARTIAL HYSTERECTOMY 2016 hyst with US for fibroids RHINOPLASTY 2007 & sinoplasty UMBILICAL HERNIA REPAIR 03/[facility]24 [facility] [3] Social History Socioeconomic History Marital status: Tobacco Use Smoking status: Former Current packs/day: 0.00 Types: Cigarettes Quit date: 10/31/1994 Years since quittin.7 Smokeless tobacco: Never Substance and Sexual Activity Alcohol use: Not Currently Drug use: No Social History Narrative to [employer],(retired due to traumatic accident) one son lives at home age 29, 2 stepsons. 4 GD. [employer] [place] former smoker quit 95 or xs ETOH use. Social Drivers of Health Financial Resource Strain: Low Risk (01/05/2024) Overall Financial Resource Strain (CARDIA) Difficulty of Paying Living Expenses: Not very hard Food Insecurity: No Food Insecurity (01/05/2024) Hunger Vital Sign Worried About Running Out of Food in the Last Year: Never true Ran Out of Food in the Last Year: Never true Transportation Needs: No Transportation Needs (01/05/2024) PRAPARE - Transportation Lack of Transportation (Medical): No Lack of Transportation (Non-Medical): No Physical Activity: Inactive (01/05/2024) Exercise Vital Sign Days of Exercise per Week: 0 days Minutes of Exercise per Session: 0 min Stress: Stress Concern Present (01/05/2024) [employer] - Occupational Stress Questionnaire Feeling of Stress : To some extent Social Connections: Socially Integrated (01/05/2024) Social Connection and Isolation Panel [NHANES] Frequency of Communication with Friends and Family: More than three times a week Frequency of Social Gatherings with Friends and Family: More than three times a week Attends Voodoo Services: More than 4 times per year Active Member of Clubs or Organizations: Yes Attends Club or Organization Meetings: More than 4 times per year Marital Status: Intimate Partner Violence: Not At Risk (01/05/2024) Humiliation, Afraid, Rape, and Kick questionnaire Fear of Current or Ex-Partner: No Emotionally Abused: No Physically Abused: No Sexually Abused: No Housing Stability: Unknown (01/05/2024) Housing Stability Vital Sign Unable to Pay for Housing in the Last Year: No Homeless in the Last Year: No [4] Allergies Allergen Reactions Gadolinium Dizziness Nausea Latex Itching Swelling redness Oxycodone Itching Sulfa Antibiotics Nausea Only Other reaction(s): Leukocytosis (elevated number Ramya Lloyd PA-C 08/07/24 2101 [facility] 08-02-2024 History of Present illness Narrative Images from the original note were not included. [facility] [place] [address] [facility] [id number] Visit type: Established Patient Reason for Visit: Follow-up (Med check) and Immunizations (Pt declined Pneumococcal Vaccine) Assessment / Plan: Jen was seen today for follow-up and immunizations. Diagnoses and all orders for this visit: Hyperuricemia (Primary) Comments: Improved, recheck lab continue low-dose allopurinol Orders: - Uric acid; Future - Uric acid Ulcerative colitis without complications, unspecified location (HCC) Comments: Stable on dietary changes, follow-up with Dr. Azar for needed colonoscopy Renal stones Chronic gout of foot, unspecified cause, unspecified laterality KAYLA on CPAP Comments: Stable, continue CPAP follow-up with pulmonary Labile essential hypertension Comments: Improved, history of whitecoat hypertension, continue CPAP and weight loss and exercise 35 Minutes spent on reviewing pertinent medical, surgical, family and social history, patient interview, physical exam, discussion of diagnosis, treatment and work-up options. Subjective: Patient ID: Jen Holder is a 59 y.o. female. HPI patient with history of stable ulcerative colitis, gout with history of renal stones, presents for follow-up after being worked up for atypical chest pain. Ultimately got a umbilical hernia repair and things are better. Saw cardiology for slightly abnormal EKG. CT of the coronaries was unremarkable as well as echocardiogram except for slight diastolic dysfunction. History of labile hypertension/whitecoat hypertension. Did not start her beta-tucker. Blood pressure better elsewhere. Review of Systems recently began on CPAP for sleep apnea. Only about 6 weeks of treatment. Sees pulmonary. Gout is affecting her feet or toes and taking low-dose allopurinol. Uric acid elevated above 7.8 last fall. No alcohol abuse. Mother was a drinker and did have gout. She has a history of kidney stones but not symptomatic. No breakthrough reflux. No abdominal pain. No meds for ulcerative colitis. He is overdue for colonoscopy by Dr. Ewing. No mucus blood diarrhea or constipation. No dysuria or hematuria. Recent mammogram up-to-date. He is overdue for Pap and pelvic exam. She does have 1 ovary remaining. Allergies[1] Current Medications[2] Problem List[3] Social History Tobacco Use Smoking status: Former Current packs/day: 0.00 Types: Cigarettes Quit date: 10/31/1994 Years since quittin.7 Smokeless tobacco: Never Substance Use Topics Alcohol use: Not Currently Surgical History[4] Family History[5] Objective: BP 136/86 Pulse 68 Temp 36.4 C (97.5 F) (Temporal) Ht 5' 6 (1.676 m) Wt 251 lb (114 kg) SpO2 98% BMI 40.51 kg/m Physical Exam Besides her obesity and labile hypertension her exam was unremarkable. Normal eardrums and oropharynx. No neck masses JVD adenopathy or thyroid lesions. No carotid bruits. Heart is rate without gallops or murmurs. Lungs are clear. Abdomen obese nontender without pain hepatosplenomegaly masses or bruits. Pulses are good. No extremity edema. No obvious signs of gout today. Extensive reviewed patient's records including sleep study, echocardiogram, CTA of the coronaries, pulmonary and cardiology notes. And mammogram [1] Allergies Allergen Reactions Gadolinium Dizziness Nausea Latex Itching Swelling redness Oxycodone Itching Sulfa Antibiotics Nausea Only Other reaction(s): Leukocytosis (elevated number [2] Current Outpatient Medications: allopurinol (Zyloprim) 100 MG tablet, Take 1 tablet (100 mg) by mouth daily., Disp: 30 tablet, Rfl: 5 calcium carbonate 1500 (600 Ca) MG tablet, Take by mouth., Disp: , Rfl: cholecalciferol (D3-5) 5,000 Units tablet, , Disp: , Rfl: Cyanocobalamin (VITAMIN B 12 PO), Take by mouth., Disp: , Rfl: folic acid (Folvite) 1 MG tablet, , Disp: , Rfl: LACTOBACILLUS PROBIOTIC PO, Take by mouth., Disp: , Rfl: omeprazole (PriLOSEC) [address] capsule, Take 40 mg by mouth every morning (before breakfast)., Disp: , Rfl: Potassium 99 MG tablet, Take by mouth., Disp: , Rfl: therapeutic multivitamin-minerals (Theragran-M) tablet, Take 1 tablet by mouth daily., Disp: , Rfl: traZODone (Desyrel) 50 MG tablet, Take 1 tablet (50 mg) by mouth Nightly as needed for sleep., Disp: 30 tablet, Rfl: 3 triamcinolone (Kenalog) 0.5 % cream, Apply topically 2 times daily., Disp: 30 g, Rfl: 2 [3] Patient Active Problem List Diagnosis Allergic rhinitis Family history of diabetes mellitus Ulcerative colitis (HCC) Cholelithiasis Eczema GERD without esophagitis Nontraumatic incomplete tear of left rotator cuff Hyperuricemia Obesity (BMI 35.0-39.9 without comorbidity) Renal stones KAYLA on CPAP Gout Labile essential hypertension [4] Past Surgical History: Procedure Laterality Date ANKLE FRACTURE SURGERY Right 2011 ORIF COLONOSCOPY 2019 COLONOSCOPY 2016 COLONOSCOPY 03/31/2022 Congestion mucosa recto-sigmoid and sigmoid. Dr. Ewing- due 04/16 COLONOSCOPY W/ BIOPSIES 2019 Dr Ewing CYSTOSCOPY 2018 Normal LIPOMA RESECTION 2016 recurrence per Fior LIPOMA RESECTION 2014 right shoulder times 2 per Jeffrey PARTIAL HYSTERECTOMY 2016 hyst with US for fibroids RHINOPLASTY 2007 & sinoplasty UMBILICAL HERNIA REPAIR 03/2024 [facility] [5] Family History Problem Relation Name Age of Onset Diabetes Mother insulin Drug/Alcohol assessment Mother age 62 of complications of PUD - etohism Crohn's disease Mother Osteoporosis Mother Atrial fibrillation Father Kumar Small CHF High Blood Pressure Father Kumar Small Colon cancer Father Kumar Small 86 age 87 Stroke Father Kumar Small Lung cancer Sister Daniella in 50s, smoker Accidental Brother Aris age 13 from accidental gunshot documented in this encounter [facility] 07-25-2024 Consult note Formatting of th is note might be different from the original. [facility] Speech-Language Pathology Voice Evaluation for Vocal Cord Dysfunction Test Date: 07/25/2024 Patient Name: Jen Holder Date of : 1965 Age: 59 y.o. MR#: [id number] Referring Physician: Collins Deleon Length of Session: 35 minutes Summary: Jen Holder was referred for an evaluation by Dr. Deleon after a diagnosis of vocal cord dyskinesia. Amaris was seen at [facility] for vocal cord dysfunction in 2019 but voiced concern that she did not receive enough instruction in the techniques to use them on her own. Pulmonary function and cardiovascular testing have been completed. Results indicate normal cardiac function and evidence of vocal cord dyskinesia on laryngoscopy. Amaris reports experiencing episodes of dyspnea since childhood . These events occur during exertion. Symptoms consistent with vocal cord dysfunction include: Dizziness/lightheadedness, Inspiratory stridor which she cannot replicate, Nasal symptoms (post-nasal drip,congestion,sneezing), Sensation she cannot get enought air, Sensation of choking/suffocation, and Facial flushing/pallor . When events occur, she attempts rest. Jen Glory states that these activities are beneficial in reducing symptoms for a time. Symptoms will return upon resuming of exercise. Use of an albuterol inhaler has demonstrated no appreciable change in symptoms. Episodes typically last up to 2 minutes. Medical history is significant for pre-diabetes, ulcerative colitis, eczema, sleep apnea. 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 Amaris would like to participate in exercise and be able to walk distances to participate in other leisure activities. Under therapeutic guidance, Jen practiced metered breathing techniques in supine, sitting, and standing positions. Jen utilized equal respiratory cycles (one second inhalation and one second exhalation) to gain active control of the respiratory pattern. Metered breathing was also practiced in standing position using visual (mirror) and tactile prompts to assist with monitoring the compensatory, shallow upper chest breathing pattern. Using these cues, Ejn was able to identify this pattern and replace it with diaphragmatic breath support instead. Jen is to practice metered breathing techniques six to eight minutes per day, two minutes in each position, using diaphragmatic breath support. Jen is to use metered breathing actively as soon as symptoms of vocal cord dysfunction occur. Impression: Symptoms are consistent with vocal cord dysfunction in the absence of asthma. Symptoms appear consistent based on reported symptoms, lack of appreciable change reported with inhaler use, and difficulty primarily reported with inhalation. Recommendations: 1. Use of metered breathing with diaphragmatic breath support to control symptoms of vocal cord dysfunction. 2. Follow through with recommended vocal hygiene protocol. 3. Patient will follow-up with therapist on 08/10/24 at 1:30 pm to discuss progress with prescribed metered breathing exercises and follow through with vocal hygiene protocol. 4. Discuss concerns related to reflux/allergies with PCP. Goals: 1. Patient will paraphrase basic anatomy and physiology of respiration and phonation with 80% accuracy. 2. Patient will complete metered, diaphragmatic breathing techniques in supine, sitting, and standing positions with 80% accuracy and no more than 1 verbal cue (per position). 3. Patient will utilize lower abdominal breath support during light exertion (fast walk, slow jog, jumping jacks, stairs, etc) with 80% accuracy. Thank you for the referral. Dottie Escudero M.A., [facility]-[employer]IC [employer]ING INTERVIEWER Speech-Language Pathologist CC: Referring Physician(s) [facility] Work Phone: 07-25-2024 Miscellaneous Notes [facility] Speech-Language Pathology Voice Evaluation for Vocal Cord Dysfunction Test Date: 07/25/2024 Patient Name: Jen Holder Date of : 1965 Age: 59 y.o. MR#: [id number] Referring Physician: Collins Deleon Length of Session: 35 minutes Summary: Jen Holder was referred for an evaluation by Dr. Deleon after a diagnosis of vocal cord dyskinesia. Amaris was seen at [facility] for vocal cord dysfunction in 2019 but voiced concern that she did not receive enough instruction in the techniques to use them on her own. Pulmonary function and cardiovascular testing have been completed. Results indicate normal cardiac function and evidence of vocal cord dyskinesia on laryngoscopy. Amaris reports experiencing episodes of dyspnea since childhood . These events occur during exertion. Symptoms consistent with vocal cord dysfunction include: Dizziness/lightheadedness, Inspiratory stridor which she cannot replicate, Nasal symptoms (post-nasal drip,congestion,sneezing), Sensation she cannot get enought air, Sensation of choking/suffocation, and Facial flushing/pallor . When events occur, she attempts rest. Jen Holder states that these activities are beneficial in reducing symptoms for a time. Symptoms will return upon resuming of exercise. Use of an albuterol inhaler has demonstrated no appreciable change in symptoms. Episodes typically last up to 2 minutes. Medical history is significant for pre-diabetes, ulcerative colitis, eczema, sleep apnea. 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 Amaris would like to participate in exercise and be able to walk distances to participate in other leisure activities. Under therapeutic guidance, Jen practiced metered breathing techniques in supine, sitting, and standing positions. Jen utilized equal respiratory cycles (one second inhalation and one second exhalation) to gain active control of the respiratory pattern. Metered breathing was also practiced in standing position using visual (mirror) and tactile prompts to assist with monitoring the compensatory, shallow upper chest breathing pattern. Using these cues, Jen was able to identify this pattern and replace it with diaphragmatic breath support instead. Jen is to practice metered breathing techniques six to eight minutes per day, two minutes in each position, using diaphragmatic breath support. Jen is to use metered breathing actively as soon as symptoms of vocal cord dysfunction occur. Impression: Symptoms are consistent with vocal cord dysfunction in the absence of asthma. Symptoms appear consistent based on reported symptoms, lack of appreciable change reported with inhaler use, and difficulty primarily reported with inhalation. Recommendations: 1. Use of metered breathing with diaphragmatic breath support to control symptoms of vocal cord dysfunction. 2. Follow through with recommended vocal hygiene protocol. 3. Patient will follow-up with therapist on 08/10/24 at 1:30 pm to discuss progress with prescribed metered breathing exercises and follow through with vocal hygiene protocol. 4. Discuss concerns related to reflux/allergies with PCP. Goals: 1. Patient will paraphrase basic anatomy and physiology of respiration and phonation with 80% accuracy. 2. Patient will complete metered, diaphragmatic breathing techniques in supine, sitting, and standing positions with 80% accuracy and no more than 1 verbal cue (per position). 3. Patient will utilize lower abdominal breath support during light exertion (fast walk, slow jog, jumping jacks, stairs, etc) with 80% accuracy. Thank you for the referral. Dottie Escudero M.A., CCC-[employer]OUS[employer] INTERVIEWER Speech-Language Pathologist CC: Referring Physician(s) Encounter addended by: Dottie Escudero CCC-PUBLIC HOUSING INTERVIEWER on: 07/25/2024 11:00 AM Actions taken: Charge Capture section accepted documented in this encounter [facility] 07-25-2024 Note Encounter addended b y: Dottie Escudero CCC-PUBLIC HOUSING INTERVIEWER on: 07/25/2024 11:00 AM Actions taken: Charge Capture section accepted [facility] 06-16-2024 Telephone encounter Note Recent Visits Date Type Provider Dept 04/08/24 Office Visit Bjorn Tejada PA-C [facility] 03/01/24 Office Visit Bjorn Tejada PA-C [facility] 01/05/24 Office Visit Bjorn Tejada PA-C [facility] Showing recent visits within past 365 days and meeting all other requirements Future Appointments Date Type Provider Dept 06/28/24 Appointment Rolando Ceballos DO [facility] Showing future appointments within next 90 days and meeting all other requirements Requested Prescriptions Pending Prescriptions Disp Refills traZODone (Desyrel) 50 MG tablet 30 tablet 3 Sig: Take 1 tablet (50 mg) by mouth Nightly as needed for sleep. Provider: Bjorn Tejada PA-C Verified pharmacy: yes Verified day(s) supplied: yes Verified refill(s) needed (previous prescription showing no refills in chart): Yes Have you received any controlled medications from any other provider? N/A Overdue for visit: No If yes - patient scheduled? Yes Most recent labs completed in chart? N/A None [facility] 06-16-2024 Miscellaneous Notes Recent Visits Date Type Provider Dept 04/08/24 Office Visit Bjorn Tejada PA-C [facility] 03/01/24 Office Visit Bjorn Tejada PA-C [facility] 01/05/24 Office Visit Bjorn Tejada PA-C [facility] Showing recent visits within past 365 days and meeting all other requirements Future Appointments Date Type Provider Dept 06/28/24 Appointment Rolando Ceballos DO [facility] Showing future appointments within next 90 days and meeting all other requirements Requested Prescriptions Pending Prescriptions Disp Refills traZODone (Desyrel) 50 MG tablet 30 tablet 3 Sig: Take 1 tablet (50 mg) by mouth Nightly as needed for sleep. Provider: Bjorn Tejada PA-C Verified pharmacy: yes Verified day(s) supplied: yes Verified refill(s) needed (previous prescription showing no refills in chart): Yes Have you received any controlled medications from any other provider? N/A Overdue for visit: No If yes - patient scheduled? Yes Most recent labs completed in chart? N/A None documented in this encounter [facility] 06-08-2024 Telephone encounter Note We have been unable to reach your patient to schedule their testing. Test Name: Transthoracic echocardiogram (TTE) complete with contrast, bubble, strain, and 3D PRN 1st attempt mychart 05/04/24 - KM 2nd attempt -- LVM with cs details 06/08/24 CLP [facility] 06-08-2024 Miscellaneous Notes We have been unable to reach your patient to schedule their testing. Test Name: Transthoracic echocardiogram (TTE) complete with contrast, bubble, strain, and 3D PRN 1st attempt mychart 05/04/24 - KM 2nd attempt -- LVM with cs details 06/08/24 CLP documented in this encounter [facility] 05-04-2024 Evaluation note Diagnosis Onset Date Resolution Abnormal EKG acute April 2:56pm [facility] Work Phone: 1(508) 367-259302-05-2025 Telephone encounter Note* Telephone Encounter - Anabella Goss - 04/27/2024 11:40 AM EST Name of caller: Angel Contact phone number: [phone] Relationship to Patient: [facility] Provider: Lin Practice: [facility] Chief Complaint/Reason for Call: pt having testing done tomorrow, Angel states she will need to take Metoprolol tonight and tomorrow, please send script YESSENIA Best time of day caller can be reached: any Patient advised that office/PCP has 24-48 business hours to return their call: No [id number] Miscellaneous Notes* Telephone Encounter - Anabella Goss - 04/27/2024 11:40 AM EST Name of caller: Angel Contact phone number: [phone] Relationship to Patient: [facility] Provider: Lin Practice: [facility] Chief Complaint/Reason for Call: pt having testing done tomorrow, Angel states she will need to take Metoprolol tonight and tomorrow, please send script YESSENIA Best time of day caller can be reached: any Patient advised that office/PCP has 24-48 business hours to return their call: No documented in this [facility]02-03-2025 Evaluation note* Diagnosis Onset Date Resolution Status Admit Date S/P umbilical hernia repair, follow-up exam acute April 25 2:55pm Abnormal EKG acute April 2:56pm [facility] Work Phone: [phone]) 108-716201-17-2025 Evaluation + Plan note* Assessment & Plan Note - Bjorn Tejada PA-C - 04/08/2024 11:20 AM ESTAssociated Problem(s): Insomnia - Chronic and unstable continues to use trazodone does have sleep apnea continues to workup with pulmonology we will entertain the idea of CPAP device which should help sleeping issues as well. [id number] Miscellaneous Notes* Assessment & Plan Note - Bjorn Tejada PA-C - 04/08/2024 11:20 AM ESTAssociated Problem(s): Insomnia - Chronic and unstable continues to use trazodone does have sleep apnea continues to workup with pulmonology we will entertain the idea of CPAP device which should help sleeping issues as well. documented in this [facility]01-17-2025 History of Present illness Narrative* Bjorn Tejada PA-C - 04/08/2024 7:40 AM EST Images from the original note were not included. [facility] - [place] [address] [facility] [address] Dept: [phone] Dept Loc: [phone] Visit type: Established Patient Reason for Visit: Abnormal ECG Assessment and Plan 1. Abnormal EKG - ECG 12 lead - Transthoracic echocardiogram (TTE) complete with contrast, bubble, strain, and 3D PRN - perflutren protein A microsphere (Optison) 3 mL in sodium chloride (PF) 0.9 % 10 mL IV syringe; 0-10 mL, IntraVENous, IMG once PRN, other, suboptimal echo image, Starting on Thu04/08/24 at 0755, For 1 dose, CV Procedural MedicationsAdminister via slow IVP for suboptimal echocardiogram enhancement. May administer as divided doses to reach optimal image enhancement - CTA HEART CORONARY ANGIOGRAM WITH PROV FFR-CT 2. Chest pain, unspecified type - Transthoracic echocardiogram (TTE) complete with contrast, bubble, strain, and 3D PRN - perflutren protein A microsphere (Optison) 3 mL in sodium chloride (PF) 0.9 % 10 mL IV syringe; 0-10 mL, IntraVENous, IMG once PRN, other, suboptimal echo image, Starting on Thu04/08/24 at 0755, For 1 dose, CV Procedural MedicationsAdminister via slow IVP for suboptimal echocardiogram enhancement. May administer as divided doses to reach optimal image enhancement - CTA HEART CORONARY ANGIOGRAM WITH PROV FFR-CT 3. Elevated blood pressure reading in office without diagnosis of hypertension 4. Primary insomnia Assessment & Plan: - Chronic and unstable continues to use trazodone does have sleep apnea continues to workup with pulmonology we will entertain the idea of CPAP device which should help sleeping issues as well. Patient reports periodic issues with chest heaviness and pressure on the left side of her chest. EKG was read as abnormal which does show some abnormalities in V1. Does not show any signs of acute active disease but given her history and symptoms I think it warrants further evaluation including echocardiogram and CT angio. Patient is not a candidate for stress treadmill. Patient is unable to walkany significant distance due to severe shortness of breath for which she continues to follow-up with pulmonology. Blood pressure elevated in the office today however the patient does suffer from whitecoat hypertension we will continue to closely monitor. Follow up for Next scheduled follow-up. Subjective HPI this is a 58-year-old female who recently had an EKG preoperatively that was abnormal she was concerned about it so requested follow-up in the office to have it reevaluated and discuss any possible further treatment and evaluation. 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 Review of Systems Constitutional: Negative for chills and fever. HENT: Negative for congestion and sore throat. Respiratory: Positive for chest tightness and shortness of breath. Negative for cough. Cardiovascular: Negative for chest pain. Gastrointestinal: Negative for abdominal pain, diarrhea, nausea and vomiting. Genitourinary: Negative for difficulty urinating, dysuria, frequency and urgency. Musculoskeletal: Negative for back pain. Neurological: Negative for dizziness and light-headedness. Psychiatric/Behavioral: Positive for sleep disturbance. All other systems reviewed and are negative. Allergies Allergen Reactions Gadolinium Dizziness Nausea Latex Itching Swelling redness Oxycodone Itching Sulfa Antibiotics Nausea Only Other reaction(s): Leukocytosis (elevated number Current Outpatient Medications Medication Sig Dispense Refill allopurinol (Zyloprim) 100 MG tablet Take 1 tablet (100 mg) by mouth daily. 30 tablet 5 calcium carbonate 1500 (600 Ca) MG tablet Take by mouth. cholecalciferol (D3-5) 5,000 Units tablet Cyanocobalamin (VITAMIN B 12 PO) Take by mouth. folic acid (Folvite) 1 MG tablet LACTOBACILLUS PROBIOTIC PO Take by mouth. omeprazole (PriLOSEC) [address] capsule Take 40 mg by mouth every morning (before breakfast). Potassium 99 MG tablet Take by mouth. therapeutic multivitamin-minerals (Theragran-M) tablet Take 1 tablet by mouth daily. traZODone (Desyrel) 50 MG tablet Take 1 tablet (50 mg) by mouth Nightly as needed for sleep. 30 tablet 3 triamcinolone (Kenalog) 0.5 % cream Apply topically 2 times daily. 30 g 2 No current facility-administered medications for this visit. Past Medical History: Diagnosis Date Allergic rhinitis stopped immunotherapy 2005 Breast cancer screening 04/2020 Dr. Seals Cholelithiasis relatively asx Eczema Encounter for gynecological examination Dr. Medrano/Renard Family history of diabetes mellitus mother H/O colonoscopy 01/2020 Dr. Thomas vizcarra 02/11 History of Clostridioides difficile infection 2017 ? 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 Lupillo FORRESTER pending Social History Tobacco Use Smoking status: Former Current packs/day: 0.00 Types: Cigarettes Quit date: 10/31/1994 Years since quittin.4 Smokeless tobacco: Never Substance Use Topics Alcohol use: Not Currently Past Surgical History: Procedure Laterality Date ANKLE FRACTURE SURGERY Right 01/2011 ORIF COLONOSCOPY 08/2018 COLONOSCOPY 2016 COLONOSCOPY 03/31/2022 Congestion mucosa recto-sigmoid and sigmoid. Repeat colonoscopy 2 years COLONOSCOPY W/ BIOPSIES 01/2020 Dr Thomas vizcarra fall 2021 CYSTOSCOPY 01/13/2018 Normal LIPOMA RESECTION 12/2015 recurrence per Fior LIPOMA RESECTION 2014 right shoulder times 2 per Jeffrey RHINOPLASTY 2007 & sinoplasty TOTAL ABDOMINAL HYSTERECTOMY 2016 simple hyst with USO, fibroids Family History Problem Relation Name Age of Onset Diabetes Mother insulin Other (29218) Mother age 62 of complications of PUD - etohism Crohn's disease Mother Alcohol abuse Mother Osteoporosis Mother Atrial fibrillation Father Kumar Small CHF High Blood Pressure Father Kumar Small Colon cancer Father Kumar Small 80 age 87 Stroke Father Kumar Small Objective BP (!) 160/110 (BP Location: Right arm, Patient Position: Sitting, BP Cuff Size: Adult) Pulse 102 Temp 36.5 C (97.7 F) (Temporal) Ht 5' 6 (1.676 m) Wt 244 lb (111 kg) SpO2 98% BMI 39.38 kg/m Physical Exam Vitals reviewed. Constitutional: General: She is not in acute distress. Appearance: Normal appearance. She is not ill-appearing or toxic-appearing. Eyes: General: No scleral icterus. Conjunctiva/sclera: Conjunctivae normal. Pupils: Pupils are equal, round, and reactive to light. Cardiovascular: Rate and Rhythm: Normal rate and regular rhythm. Heart sounds: Normal heart sounds. No murmur heard. Pulmonary: Effort: Pulmonary effort is normal. No respiratory distress. Breath sounds: Normal breath sounds. Musculoskeletal: Cervical back: Normal range of motion and neck supple. Skin: General: Skin is warm and dry. Neurological: Mental Status: She is alert. Psychiatric: Mood and Affect: Mood normal. Data Reviewed and Summarized Labs: Imaging/Testing: Bjorn Tejada PA-C 04/08/2024 Please note that portions of this note may have been completed with voice recognition software. Documentation reviewed prior to signing but minor errors in strip deburrer may have occurred. documented in this [facility]01-03-2025 [facility] Medical Records Department [address] [place] [address] History Physical Exam 03/25/24 1022 MR#: [id number] Acct: [id number] Name: JEN HOLDER Rep #: [id number] : 1965 58 From: Marisa Palm MD PCP: Dr. Rolando Ceballos DO Status:[facility] Location: [place] [address] History and Physical Date of Admission: 03/25/24 Date of Service: 03/07/24 MR#: [id number] Acct: [id number] Name: JEN HOLDER Rep #: [id number] : 1965 Provider: Dr. Marisa Palm MD Age/Sex: 58/F Location: [facility] Status: Signed Intake Vital Signs 04/27/2414:07 03/07/2415:25 Height 5 ft 6 in 5 ft 6 in Weight: 244 lb BMI 39.4 BP 137/94 H Blood Pressure Location Rt brachial Position Sitting Respiration 17 Pulse 88 Pulse Source Monitor Pulse Oximetry (%) 99 Oxygen Delivery Method room air Intake Visit Reasons: UMBILICAL HERNIA Chief Complaint: umbilical hernia Is patient in pain?: Yes Allergies acetaminophen (From Percocet) Allergy (Verified 03/07/24 15:26) Itchinglatex Allergy (Verified 03/07/24 15:26) Itchingoxycodone (From Percocet) Allergy (Verified 03/07/24 15:26) ItchingIodinated Contrast Media (Iodinated Contrast- Oral and IV Dye) Adverse Reaction (Verified 03/07/24 15:26) NAUSEA,DIAPHORESISSulfa (Sulfonamide Antibiotics) Adverse Reaction (Verified 03/07/24 15:26) UNABLE TO TAKE WITH CROHNS DISEASE Medications ???Medication ???Instructions ???Recorded ???Confirmed ???Type multivitamin with folic acid 400 1 tab PO DAILY 12/26/15 03/07/24 History mcg tablet iron, carbonyl 45 mg tablet 65 mg PO DAILYCM 01/10/16 03/07/24 History calcium carbonate 500 mg PO DAILY 01/07/18 03/07/24 History potassium 99 mg tablet 550 mg PO DAILY 01/07/18 03/07/24 History Lactobac no.2-Bifidobac no.1-S. 1 cap PO DAILY #30 caps 12/21/20 03/07/24 Rx thermo 112.5 billion cell capsule (VSL#3) cyanocobalamin-liver extract tablet 1 tab PO DAILY 03/27/22 03/07/24 History folic acid 1 mg tablet 1 mg PO DAILY 03/27/22 03/07/24 History sulfasalazine 500 mg tablet 500 mg PO TID 03/27/22 03/07/24 History triamcinolone acetonide 0.5 % 1 applic topical PRN PRN EXCEMA 01/12/23 03/07/24 History topical cream omeprazole 40 mg capsule,delayed 40 mg PO QDAY #30 caps 03/07/24 Rx release PFSH Medical History Acute pharyngitis, unspecified Anemia Anxiety Arthritis Back pain Blepharitis of right lower eyelid Conjunctivitis, right eye COVID-19 long hauler manifesting chronic cough Diabetes Diarrhea Fatty liver Fatty liver Former smoker Heartburn History of echocardiogram Hx of ulcerative colitis Injury of back Left shoulder pain Leg cramps Lipoma of back Migraine headache Shortness of breath on exertion Strain of right knee Wears glasses Surgical History S/P excision of lipoma Hx of colonoscopy Hx of cystoscopy History of sinus surgery History of ankle surgery H/O: hysterectomy Family History Mother Diabetes Thyroid disorderFather Colon cancer Heart disease Hypertension CVA (cerebral vascular accident)Other Colitis Ulcerative colitis Social History Smoking Status: Former smoker alcohol intake: never HPI HPI HPI: 58-year-old female presents due to umbilical hernia on CT. Patient is also interested to discuss her other findings including cholelithiasis, 1.3 cm adrenal nodule, hiatal hernia. Patient states she has been having some issues with umbilical hernia and has been having to push it back in and has been more painful she said she is notices for about the last 2 weeks. Patient's previous CAT scan 2018 did show umbilical hernia was little smaller. Patient has never had surgery in this area. Patient does have GERD for the last year daily has been taking a lot of Tums has not been on any Pepcid or omeprazole. Patient also denies any right upper quadrant pain nausea or vomiting after eating due to the gallstone which again was seen in the CAT scan in 2018 as well. ROS General General: Yes fatigue; No weight change, appetite, colon cancer or breast cancer HEENT HEENT: No difficulty swallowing, eye injury, eye surgery, swollen glands or hoarseness Endo Endocrine: No thyroid disease, diabetes mellitus, thyroid cancer, Hair loss, heat intolerance or cold intolerance Skin Skin: Yes rash; No changing moles Musc Musculoskeletal: Yes gout; No back problems, arthritis, rheumatoid arthritis or joint pain Cardi (more content not included)...[facility]12-10-2024 Telephone encounter Note* Telephone Encounter - Adrienne Lee RN - 03/01/2024 10:44 AM EST S: [facility] calling CAC for med clarification B: BENTYL A: [facility] requesting frequency for prn med. R. Informed [facility] that RN will send TE to provider & office will call back to advise or addend E-script. Reason for Disposition Pharmacy calling with prescription question and triager unable to answer question Protocols used: Medication Question [id number] [id number] Miscellaneous Notes* Telephone Encounter - Adrienne Lee RN - 03/01/2024 10:44 AM EST S: [facility] calling CAC for med clarification B: ADWOA A: [facility] requesting frequency for prn med. R. Informed [facility] that RN will send TE to provider & office will call back to advise or addend E-script. Reason for Disposition Pharmacy calling with prescription question and triager unable to answer question Protocols used: Medication Question [id number] documented in this [facility]12-10-2024 History of Present illness Narrative* Bjorn Tejada PA-C - 03/01/2024 10:00 AM EST Images from the original note were not included. [facility] - [address] [facility] [address] Dept: [phone] Dept Loc: [phone] Visit type: Established Patient Reason for Visit: Abdominal Pain (Middle upper abdominal pain ) and Flu Vaccine (Patient has declined the flu vaccine/) Assessment and Plan 1. Epigastric pain - Comprehensive metabolic panel - CBC auto differential - Lipase 2. Periumbilical pain - CT abdomen pelvis wo IV contrast Patient initially had reported epigastric pain however upon presentation to the office today she reports her pain is more centered around the umbilicus and slightly lower. She denies any urinary symptoms no vaginal discharge spotting bleeding. 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 No follow-ups on file. Subjective HPI this is a 58-year-old female with an underlying history of ulcerative colitis cholelithiasis, GERD morbid obesity with a BMI of 39 who contacted the call center yesterday for concerns of mid upper/abdominal pain that started 2 days ago. She reports that the pain is moderate to constant lasting over 2 hours she vomited once. She denies any fever chills chest pain or palpitations. Patient was asecond level triage I spoke to Dr. Ceballos who okayed her to come into the office as the patient stated she does not want to go to the emergency room. 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 Does have a history of UC, tried all the meds for UC, and made her sick with severe side effects. Was seen by GI. Pain in the abdomen was severe and much more intense but today seems much less. Took emetrol, and pepto and seems to have helped. Pain started abruptly Thursday with severe intensity. Review of Systems Constitutional: Negative for chills and fever. HENT: Negative for congestion and sore throat. Respiratory: Negative for cough and shortness of breath. Cardiovascular: Negative for chest pain. Gastrointestinal: Positive for abdominal pain. Negative for abdominal distention, blood in stool, constipation, diarrhea (Chronic loose stool), nausea and vomiting. Genitourinary: Negative for difficulty urinating, dysuria, frequency, urgency, vaginal bleeding, vaginal discharge and vaginal pain. Musculoskeletal: Negative for back pain. Neurological: Negative for dizziness and light-headedness. All other systems reviewed and are negative. Allergies Allergen Reactions Acetaminophen Gadolinium Dizziness Nausea Latex Itching Swelling redness Oxycodone Itching Sulfa Antibiotics Nausea Only Other reaction(s): Leukocytosis (elevated number Outpatient Medications Prior to Visit Medication Sig Dispense Refill allopurinol (Zyloprim) 100 MG tablet Take 1 tablet (100 mg) by mouth daily. 30 tablet 5 calcium carbonate 1500 (600 Ca) MG tablet Take by mouth. cholecalciferol (D3-5) 5,000 Units tablet Cyanocobalamin (VITAMIN B 12 PO) Take by mouth. ferrous sulfate 325 (65 Fe) MG tablet Take 325 mg by mouth. folic acid (Folvite) 1 MG tablet LACTOBACILLUS PROBIOTIC PO Take by mouth. Potassium 99 MG tablet Take by mouth. therapeutic multivitamin-minerals (Theragran-M) tablet Take 1 tablet by mouth daily. traZODone (Desyrel) 50 MG tablet Take 1 tablet (50 mg) by mouth Nightly as needed for sleep. 30 tablet 3 triamcinolone (Kenalog) 0.5 % cream Apply topically 2 times daily. 30 g 2 No facility-administered medications prior to visit. Past Medical History: Diagnosis Date Allergic rhinitis stopped immunotherapy 2005 Breast cancer screening 04/2020 Dr. Seals Cholelithiasis relatively asx Eczema Encounter for gynecological examination Dr. Medrano/Renard Family history of diabetes mellitus mother H/O colonoscopy 01/2020 Dr. Thomas vizcarra 02/11 History of Clostridioides difficile infection 2017 ? 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 Lupillo FORRESTER pending Social History Tobacco Use Smoking status: Former Current packs/day: 0.00 Types: Cigarettes Quit date: 10/31/1994 Years since quittin.3 Smokeless tobacco: Never Substance Use Topics Alcohol use: Not Currently Past Surgical History: Procedure Laterality Date ANKLE FRACTURE SURGERY Right 01/2011 ORIF COLONOSCOPY 08/2018 COLONOSCOPY 2016 COLONOSCOPY 03/31/2022 Congestion mucosa recto-sigmoid and sigmoid. Repeat colonoscopy 2 years COLONOSCOPY W/ BIOPSIES 01/2020 Dr Ewing- carmita fall 2021 CYSTOSCOPY 01/13/2018 Normal LIPOMA RESECTION 12/2015 recurrence per Fior LIPOMA RESECTION 2014 right shoulder times 2 per Jeffrey RHINOPLASTY 2007 & sinoplasty TOTAL ABDOMINAL HYSTERECTOMY 2016 simple hyst with USO, fibroids Family History Problem Relation Name Age of Onset Diabetes Mother insulin Other (93251) Mother age 62 of complications of PUD - etohism Crohn's disease Mother Alcohol abuse Mother Osteoporosis Mother Atrial fibrillation Father Kumar Small CHF High Blood Pressure Father Kumar Small Colon cancer Father Kumar Small 80 age 87 Objective BP (!) 142/100 Pulse 92 Temp 36.6 C (97.9 F) (Temporal) Ht 5' 6 (1.676 m) Wt 242 lb 12.8 oz (110 kg) SpO2 98% BMI 39.19 kg/m Physical Exam Vitals reviewed. Constitutional: General: She is not in acute distress. Appearance: Normal appearance. She is not ill-appearing or toxic-appearing. Eyes: General: No scleral icterus. Conjunctiva/sclera: Conjunctivae normal. Pupils: Pupils are equal, round, and reactive to light. Cardiovascular: Rate and Rhythm: Normal rate and regular rhythm. Heart sounds: Normal heart sounds. Pulmonary: Effort: Pulmonary effort is normal. No respiratory distress. Breath sounds: Normal breath sounds. Abdominal: General: There is no distension. Palpations: Abdomen is soft. There is no mass. Tenderness: There is abdominal tenderness. There is guarding. There is no rebound. Hernia: No hernia is present. Musculoskeletal: Cervical back: Normal range of motion and neck supple. Skin: General: Skin is warm and dry. Neurological: Mental Status: She is alert. Psychiatric: Mood and Affect: Mood normal. Data Reviewed and Summarized Labs: Imaging/Testing: Bjorn Tejada PA-C 03/01/2024 Please note that portions of this note may have been completed with voice recognition software. Documentation reviewed prior to signing but minor errors in strip deburrer may have occurred. documented in this [facility]12-09-2024 Telephone encounter Note* Telephone Encounter - Malu Spaulding RN - 02/29/2024 2:09 PM EST S: Patient called the clinical access center with complaint of middle upper abdominal pain B: started yesterday A: Pt complains of pain that is moderate and constant lasting over 2 hours. She vomited one yesterday-none today. Denies fever, chest pain, green bile. She denies prior history of this complaint. R:Patient doesn't want to go to ER-I had advised her to go. I called the office and spoke with Dr Ceballos. He reviewed her health history and she has gallstones and has not had her gall bladder removed. He said this is most likely the cause. He said she can be seen tomorrow with Bjorn Tejada in a 20 minute visit. He advised she only drink/sip clear liquids for 24 hours, such as Gatorade. She can buy Emetrol over the counter, follow package directions. I gave the patient the advice from Dr Ceballos and she is scheduled for 03/01 at 10 am. Pt advised to bring photo ID, insurance card, medications with them to their visit if possible. Covid questions: 1) Do you have signs or symptoms consistent with COVID-no 2) Have you tested positive for COVID in last 10 days-no 3) Have you been exposed to Covid in the last 10 days that you are aware of -no 4) Have you traveled out of the country in the last 2 weeks-no Reason for Disposition Pain lasting > 10 minutes and over 50 years old Protocols used: Abdominal Pain - [id number] [id number] Miscellaneous Notes* Telephone Encounter - Malu Spaulding RN - 02/29/2024 2:09 PM EST S: Patient called the clinical access center with complaint of middle upper abdominal pain B: started yesterday A: Pt complains of pain that is moderate and constant lasting over 2 hours. She vomited one yesterday-none today. Denies fever, chest pain, green bile. She denies prior history of this complaint. R:Patient doesn't want to go to ER-I had advised her to go. I called the office and spoke with Dr Ceballos. He reviewed her health history and she has gallstones and has not had her gall bladder removed. He said this is most likely the cause. He said she can be seen tomorrow with Bjorn Tejada in a 20 minute visit. He advised she only drink/sip clear liquids for 24 hours, such as Gatorade. She can buy Emetrol over the counter, follow package directions. I gave the patient the advice from Dr Ceballos and she is scheduled for 03/01 at 10 am. Pt advised to bring photo ID, insurance card, medications with them to their visit if possible. Covid questions: 1) Do you have signs or symptoms consistent with COVID-no 2) Have you tested positive for COVID in last 10 days-no 3) Have you been exposed to Covid in the last 10 days that you are aware of -no 4) Have you traveled out of the country in the last 2 weeks-no Reason for Disposition Pain lasting > 10 minutes and over 50 years old Protocols used: Abdominal Pain - [id number] documented in this [facility]11-26-2024 Telephone encounter Note* Telephone Encounter - Alisa Monae MA - 02/16/2024 3:10 PM EST noted [id number] Miscellaneous Notes* Telephone Encounter - Alisa Monae MA - 02/16/2024 3:10 PM EST noted * Telephone Encounter - Stacy Gallardo - 02/16/2024 2:09 PM EST Name of caller: Phyllis Contact phone number: [phone], option 1 Relationship to Patient: [facility] Scheduling Provider: Bjorn Tejada PA-C Practice: [facility] Chief Complaint/Reason for Call: Phyllis states another order for sleep study and PFT was received on 02/09/[address] Deleon, and that [facility] will be using this new order and will forward patient results to the office. Please be advised. Best time of day caller can be reached: Any Patient advised that office/PCP has 24-48 business hours to return their call: Yes * Telephone Encounter - Alonso Ratliff - 01/14/2024 9:22 AM EDT Faxed signed orders to number provided. * Telephone Encounter - Susana Pineda LPN - 01/13/2024 9:34 AM EDT Forwarding to you, if this needs routed else where please let me know. * Telephone Encounter - Jessica Pineda - 01/13/2024 8:21 AM EDT Name of caller: Tracie Contact phone number: [phone] option 1 Relationship to Patient: [facility] scheduling Provider: Reynaldo Practice: [facility] Chief Complaint/Reason for Call: Tracie with [facility] scheduling called received to orders for Sleep study with pap titration and Complete PFT pre and post bronchodilator Unable to schedule due to not having an electronic signature. They use a different system then we do. Asking for new orders with signatures and fax back to Best time of day caller can be reached: AM Patient advised that office/PCP has 24-48 business hours to return their call: N/A documented in this encounterSLima City [id number] Telephone encounter Note* Telephone Encounter - Stacy Gallardo - 02/16/2024 2:09 PM EST Name of caller: Phyllis Contact phone number: [phone], option 1 Relationship to Patient: [facility] Scheduling Provider: Bjorn Tejada PA-C Practice: [facility] Chief Complaint/Reason for Call: Phyllis states another order for sleep study and PFT was received on 02/09/[address] Deleon, and that [facility] will be using this new order and will forward patient results to the office. Please be advised. Best time of day caller can be reached: Any Patient advised that office/PCP has 24-48 business hours to return their call: Yes [facility] [id number] Telephone encounter Note* Telephone Encounter - Alonso Ratliff - 01/14/2024 9:22 AM EDT Faxed signed orders to number provided. [place] [id number] Telephone encounter Note* Telephone Encounter - Susana Pineda LPN - 01/13/2024 9:34 AM EDT Forwarding to you, if this needs routed else where please let me know. [place] [id number] Telephone encounter Note* Telephone Encounter - Jessica Pineda - 01/13/2024 8:21 AM EDT Name of caller: Tracie Contact phone number: [phone] option 1 Relationship to Patient: [facility] scheduling Provider: Reynaldo Practice: [facility] Chief Complaint/Reason for Call: Tracie with [facility] scheduling called received to orders for Sleep study with pap titration and Complete PFT pre and post bronchodilator Unable to schedule due to not having an electronic signature. They use a different system then we do. Asking for new orders with signatures and fax back to Best time of day caller can be reached: AM Patient advised that office/PCP has 24-48 business hours to return their call: N/A [facility] [id number] Evaluation + Plan note* Assessment & Plan Note - Bjorn Tejada PA-C - 01/05/2024 9:26 AM EDTAssociated Problem(s): Obesity (BMI 35.0- 39.9 without comorbidity) - Chronic and unstable was put on approximate 20 pounds over the last several years encouraged exercise activity and returning to [employer] increasing activity levels throughout the week will help with anxiety as well as help with sleep. [facility] [id number] Miscellaneous Notes* Assessment & Plan Note - Bjorn Tejada PA-C - 01/05/2024 9:26 AM EDTAssociated Problem(s): Obesity (BMI 35.0- 39.9 without comorbidity) - Chronic and unstable was put on approximate 20 pounds over the last several years encouraged exercise activity and returning to [employer] increasing activity levels throughout the week will help with anxiety as well as help with sleep. * Assessment & Plan Note - Bjorn Tejada PA-C - 01/05/2024 9:23 AM EDTAssociated Problem(s): Insomnia - Acute unstable suspect multifactorial in nature possible stress versus GERD versus sleep apnea will use trazodone on an as-needed basis. * Assessment & Plan Note - Bjorn Tejada PA-C - 01/05/2024 9:23 AM EDTAssociated Problem(s): Hyperuricemia - Chronic and stable current uric acid level 7.8 will begin allopurinol history of kidney stones and polyarthralgias. * Assessment & Plan Note - Bjorn Tejada PA-C - 01/05/2024 9:22 AM EDTAssociated Problem(s): Eczema - Chronic and stable generalized and diffuse flareup requesting refill of Kenalog cream. documented in this [facility]10-15-2024 Miscellaneous Notes* Assessment & Plan Note - Bjorn Tejada PA-C - 01/05/2024 9:26 AM EDTAssociated Problem(s): Obesity (BMI 35.0-39.9 without comorbidity) - Chronic and unstable was put on approximate 20 pounds over the last several years encouraged exercise activity and returning to [employer] increasing activity levels throughout the week will help with anxiety as well as help with sleep. * Assessment & Plan Note - Bjorn Tejada PA-C - 01/05/2024 9:23 AM EDTAssociated Problem(s): Insomnia - Acute unstable suspect multifactorial in nature possible stress versus GERD versus sleep apnea will use trazodone on an as-needed basis. * Assessment & Plan Note - Bjorn Tejada PA-C - 01/05/2024 9:23 AM EDTAssociated Problem(s): Hyperuricemia - Chronic and stable current uric acid level 7.8 will begin allopurinol history of kidney stones and polyarthralgias. * Assessment & Plan Note - Bjorn Tejada PA-C - 01/05/2024 9:22 AM EDTAssociated Problem(s): Eczema - Chronic and stable generalized and diffuse flareup requesting refill of Kenalog cream. * Addendum Note - Alonso Ratliff - 01/05/2024 8:40 AM EDTAddended by: ALONSO RATLIFF on: 03/17/2024 11:53 AM Modules accepted: Orders documented in this [facility]10-15-2024 Evaluation + Plan note* Assessment & Plan Note - Bjorn Tejada PA-C - 01/05/2024 9:23 AM EDTAssociated Problem(s): Insomnia - Acute unstable suspect multifactorial in nature possible stress versus GERD versus sleep apnea will use trazodone on an as-needed basis. [facility] [id number] Evaluation + Plan note* Assessment & Plan Note - Bjorn Tejada PA-C - 01/05/2024 9:23 AM EDTAssociated Problem(s): Hyperuricemia - Chronic and stable current uric acid level 7.8 will begin allopurinol history of kidney stones and polyarthralgias. [facility] [id number] Evaluation + Plan note* Assessment & Plan Note - Bjorn Tejada PA-C - 01/05/2024 9:22 AM EDTAssociated Problem(s): Eczema - Chronic and stable generalized and diffuse flareup requesting refill of Kenalog cream. [facility] [id number] History of Present illness Narrative* Bjorn Tejada PA-C - 01/05/2024 8:40 AM EDT Images from the original note were not included. [facility] - [address] [facility] [address] Dept: [phone] Dept Loc: [phone] Visit type: Established Patient Reason for Visit: Annual Exam and Flu Vaccine (Patient has declined to receive influenza vaccine inthe office. ) Assessment and Plan 1. Hypersomnolence Comments: Acute progressive probable sleep apnea multifactorial concern for anxiety component will consider anxiolytic in the future Orders: - Complete PFT pre and post bronchodilator - Sleep study with pap titration 2. Dyspnea, unspecified type - Complete PFT pre and post bronchodilator - Sleep study with pap titration 3. Hyperuricemia Assessment & Plan: - Chronic and stable current uric acid level 7.8 will begin allopurinol history of kidney stones and polyarthralgias. Orders: - allopurinol (Zyloprim) 100 MG tablet; Take 1 tablet (100 mg) by mouth daily., Starting e 01/05/2024, Until Thu07/03/2024, Normal 4. Urinary frequency Comments: Recent urinalysis shows leukocyte esterase and blood. Will be sent for formal culture started on Bactrim. Orders: - Urine culture (clean catch) - sulfamethoxazole-trimethoprim (Bactrim DS) 800-160 MG tablet; Take 1 tablet by mouth 2 times daily for 7 days., Starting e 01/05/2024, Until Thu01/12/2024, Normal 5. Insomnia, unspecified type Assessment & Plan: - Acute unstable suspect multifactorial in nature possible stress versus GERD versus sleep apnea will use trazodone on an as-needed basis. Orders: - traZODone (Desyrel) 50 MG tablet; Take 1 tablet (50 mg) by mouth Nightly as needed for sleep., Starting Thu01/05/2024, Until Thu01/04/2025 at 2359, Normal 6. Eczema, unspecified type Comments: Chronic in nature both hands appears to be well controlled requesting refill of Kenalog Assessment & Plan: - Chronic and stable generalized and diffuse flareup requesting refill of Kenalog cream. Orders: - triamcinolone (Kenalog) 0.5 % cream; Apply topically 2 times daily., Starting Thu01/05/2024, Normal 7. Obesity (BMI 35.0-39.9 without comorbidity) Assessment & Plan: - Chronic and unstable was put on approximate 20 pounds over the last several years encouraged exercise activity and returning to [employer] increasing activity levels throughout the week will help with anxiety as well as help with sleep. -Time spent with the patient reviewing her medical history reviewing her medical chart discussing her concerns and developing medical care plan was 48 minutes. Follow up in about 6 months (around 07/05/2024). Subjective HPI this is a 58-year-old female with underlying history of ulcerative colitis, GERD and a history of obesity with a previous BMI of 39.2 chronic cholelithiasis and kidney stones who presents back tot office today for annual physical exam. Patient was last seen by myself in April of this year. She was also seen by telehealth visit in October for positive COVID. Patient has not had any documented laboratory studies since 2020. Concerned about breathing issues, had some breathing tests 5 years ago and found issue with vocal cords, and states breathing has become a concern enough that she scheduled follow up with pulmonology. Having horrible time sleeping up most of the night sleeping only and having severe issues with anxiety. Review most recent blood work done outside of the hospital which showed elevated white count at 14,chemistry was normal, lipids were normal, but uric acid was high at 7.8 and urine showed leukocyte esterase and blood. Encourage exercise increase exercise and activity. Encourage sleeping with pillow changing the way she sleeps as well as slight elevation of her head might help with breathing at night. Review of Systems Constitutional: Negative for chills and fever. HENT: Negative for congestion and sore throat. Respiratory: Negative for cough and shortness of breath. Cardiovascular: Negative for chest pain. Gastrointestinal: Negative for abdominal pain, diarrhea, nausea and vomiting. Genitourinary: Positive for frequency and urgency. Negative for difficulty urinating and dysuria. Musculoskeletal: Negative for back pain. Skin: Positive for rash. Eczema is flaring up Neurological: Negative for dizziness and light-headedness. Psychiatric/Behavioral: Positive for sleep disturbance. The patient is nervous/anxious. All other systems reviewed and are negative. Allergies Allergen Reactions Acetaminophen Gadolinium Dizziness Nausea Latex Itching Swelling redness Oxycodone Itching Sulfa Antibiotics Nausea Only Other reaction(s): Leukocytosis (elevated number Outpatient Medications Prior to Visit Medication Sig Dispense Refill calcium carbonate 1500 (600 Ca) MG tablet Take by mouth. cholecalciferol (D3-5) 5,000 Units tablet Cyanocobalamin (VITAMIN B 12 PO) Take by mouth. ferrous sulfate 325 (65 Fe) MG tablet Take 325 mg by mouth. folic acid (Folvite) 1 MG tablet LACTOBACILLUS PROBIOTIC PO Take by mouth. Potassium 99 MG tablet Take by mouth. therapeutic multivitamin-minerals (Theragran-M) tablet Take 1 tablet by mouth daily. triamcinolone (Kenalog) 0.5 % cream Apply topically 2 times daily. 30 g 1 No facility-administered medications prior to visit. Past Medical History: Diagnosis Date Allergic rhinitis stopped immunotherapy 2006 Breast cancer screening 04/2020 Dr. Fraga Cholelithiasis relatively asx Eczema Encounter for gynecological examination Dr. Medrano/Renard Family history of diabetes mellitus mother H/O colonoscopy 01/2020 Dr. Thomas vizcarra 02/11 History of Clostridioides difficile infection 2017 ? 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 Lupillo FORRESTER pending Social History Tobacco Use Smoking status: Former Current packs/day: 0.00 Types: Cigarettes Quit date: 10/31/1994 Years since quittin.2 Smokeless tobacco: Never Substance Use Topics Alcohol use: Not Currently Past Surgical History: Procedure Laterality Date ANKLE FRACTURE SURGERY Right 01/2011 ORIF COLONOSCOPY 08/2018 COLONOSCOPY 2016 COLONOSCOPY 03/31/2022 Congestion mucosa recto-sigmoid and sigmoid. Repeat colonoscopy 2 years COLONOSCOPY W/ BIOPSIES 01/2020 Dr Thomas vizcarra fall 2021 CYSTOSCOPY 01/13/2018 Normal LIPOMA RESECTION 12/2015 recurrence per Fior LIPOMA RESECTION 2013 right shoulder times 2 per Jeffrey RHINOPLASTY 2007 & sinoplasty TOTAL ABDOMINAL HYSTERECTOMY 2016 simple hyst with USO, fibroids Family History Problem Relation Name Age of Onset Diabetes Mother insulin Other (03371) Mother age 62 of complications of PUD - etohism Crohn's disease Mother Alcohol abuse Mother Osteoporosis Mother Atrial fibrillation Father Kumar Small CHF High Blood Pressure Father Kumar Small Colon cancer Father Kumar Small 80 age 87 Objective BP 138/81 Pulse 81 Temp 36.3 C (97.4 F) (Temporal) Ht 5' 6 (1.676 m) Wt 241 lb 12.8 oz (110 kg) SpO2 97% BMI 39.03 kg/m Physical Exam Vitals reviewed. Constitutional: General: She is not in acute distress. Appearance: Normal appearance. She is not ill-appearing or toxic-appearing. HENT: Right Ear: Tympanic membrane and ear canal normal. Left Ear: Tympanic membrane and ear canal normal. Mouth/Throat: Mouth: Mucous membranes are moist. Pharynx: No oropharyngeal exudate or posterior oropharyngeal erythema. Eyes: General: No scleral icterus. Conjunctiva/sclera: Conjunctivae normal. Pupils: Pupils are equal, round, and reactive to light. Cardiovascular: Rate and Rhythm: Normal rate and regular rhythm. Heart sounds: Normal heart sounds. Pulmonary: Effort: Pulmonary effort is normal. No respiratory distress. Breath sounds: Normal breath sounds. Abdominal: General: Bowel sounds are normal. There is no distension. Palpations: Abdomen is soft. Tenderness: There is no abdominal tenderness. Musculoskeletal: Cervical back: Normal range of motion and neck supple. No rigidity. Right lower leg: No edema. Left lower leg: No edema. Lymphadenopathy: Cervical: No cervical adenopathy. Skin: General: Skin is warm and dry. Neurological: Mental Status: She is alert. Psychiatric: Mood and Affect: Mood normal. Data Reviewed and Summarized Labs: Imaging/Testing: Bjorn Tejada PA-C 01/05/2024 Please note that portions of this note may have been completed with voice recognition software. Documentation reviewed prior to signing but minor errors in strip deburrer may have occurred. documented in this [facility]10-15-2024 History of Present illness Narrative* Bjorn Tejada PA-C - 01/05/2024 8:40 AM EDT Images from the original note were not included. [facility] [place] [facility] [address] [facility] [address] Dept: [phone] Dept Loc: [phone] Visit type: Established Patient Reason for Visit: Annual Exam and Flu Vaccine (Patient has declined to receive influenza vaccine inthe office. ) Assessment and Plan 1. Hypersomnolence Comments: Acute progressive probable sleep apnea multifactorial concern for anxiety component will consider anxiolytic in the future Orders: - Complete PFT pre and post bronchodilator - Sleep study with pap titration 2. Dyspnea, unspecified type - Complete PFT pre and post bronchodilator - Sleep study with pap titration 3. Hyperuricemia Assessment & Plan: - Chronic and stable current uric acid level 7.8 will begin allopurinol history of kidney stones and polyarthralgias. Orders: - allopurinol (Zyloprim) 100 MG tablet; Take 1 tablet (100 mg) by mouth daily., Starting Thu01/05/2024, Until Thu07/03/2024, Normal 4. Urinary frequency Comments: Recent urinalysis shows leukocyte esterase and blood. Will be sent for formal culture started on Bactrim. Orders: - Urine culture (clean catch) - sulfamethoxazole-trimethoprim (Bactrim DS) 800-160 MG tablet; Take 1 tablet by mouth 2 times daily for 7 days., Starting Thu01/05/2024, Until Thu01/12/2024, Normal 5. Insomnia, unspecified type Assessment & Plan: - Acute unstable suspect multifactorial in nature possible stress versus GERD versus sleep apnea will use trazodone on an as-needed basis. Orders: - traZODone (Desyrel) 50 MG tablet; Take 1 tablet (50 mg) by mouth Nightly as needed for sleep., Starting Thu01/05/2024, Until Thu01/04/2025 at 2359, Normal 6. Eczema, unspecified type Comments: Chronic in nature both hands appears to be well controlled requesting refill of Kenalog Assessment & Plan: - Chronic and stable generalized and diffuse flareup requesting refill of Kenalog cream. Orders: - triamcinolone (Kenalog) 0.5 % cream; Apply topically 2 times daily., Starting Thu01/05/2024, Normal 7. Obesity (BMI 35.0-39.9 without comorbidity) Assessment & Plan: - Chronic and unstable was put on approximate 20 pounds over the last several years encouraged exercise activity and returning to [employer] increasing activity levels throughout the week will help with anxiety as well as help with sleep. -Time spent with the patient reviewing her medical history reviewing her medical chart discussing her concerns and developing medical care plan was 48 minutes. Follow up in about 6 months (around 07/05/2024). Subjective HPI this is a 58-year-old female with underlying history of ulcerative colitis, GERD and a history of obesity with a previous BMI of 39.2 chronic cholelithiasis and kidney stones who presents back tot office today for annual physical exam. Patient was last seen by myself in April of this year. She was also seen by telehealth visit in October for positive COVID. Patient has not had any documented laboratory studies since 2020. Concerned about breathing issues, had some breathing tests 5 years ago and found issue with vocal cords, and states breathing has become a concern enough that she scheduled follow up with pulmonology. Having horrible time sleeping up most of the night sleeping only and having severe issues with anxiety. Review most recent blood work done outside of the hospital which showed elevated white count at 14,chemistry was normal, lipids were normal, but uric acid was high at 7.8 and urine showed leukocyte esterase and blood. Encourage exercise increase exercise and activity. Encourage sleeping with pillow changing the way she sleeps as well as slight elevation of her head might help with breathing at night. Review of Systems Constitutional: Negative for chills and fever. HENT: Negative for congestion and sore throat. Respiratory: Negative for cough and shortness of breath. Cardiovascular: Negative for chest pain. Gastrointestinal: Negative for abdominal pain, diarrhea, nausea and vomiting. Genitourinary: Positive for frequency and urgency. Negative for difficulty urinating and dysuria. Musculoskeletal: Negative for back pain. Skin: Positive for rash. Eczema is flaring up Neurological: Negative for dizziness and light-headedness. Psychiatric/Behavioral: Positive for sleep disturbance. The patient is nervous/anxious. All other systems reviewed and are negative. Allergies Allergen Reactions Acetaminophen Gadolinium Dizziness Nausea Latex Itching Swelling redness Oxycodone Itching Sulfa Antibiotics Nausea Only Other reaction(s): Leukocytosis (elevated number Outpatient Medications Prior to Visit Medication Sig Dispense Refill calcium carbonate 1500 (600 Ca) MG tablet Take by mouth. cholecalciferol (D3-5) 5,000 Units tablet Cyanocobalamin (VITAMIN B 12 PO) Take by mouth. ferrous sulfate 325 (65 Fe) MG tablet Take 325 mg by mouth. folic acid (Folvite) 1 MG tablet LACTOBACILLUS PROBIOTIC PO Take by mouth. Potassium 99 MG tablet Take by mouth. therapeutic multivitamin-minerals (Theragran-M) tablet Take 1 tablet by mouth daily. triamcinolone (Kenalog) 0.5 % cream Apply topically 2 times daily. 30 g 1 No facility-administered medications prior to visit. Past Medical History: Diagnosis Date Allergic rhinitis stopped immunotherapy 2005 Breast cancer screening 04/2020 Dr. Fraga Cholelithiasis relatively asx Eczema Encounter for gynecological examination Dr. Medrano/Renard Family history of diabetes mellitus mother H/O colonoscopy 01/2020 Dr. Thomas vizcarra 02/11 History of Clostridioides difficile infection 2017 ? 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 Lupillo FORRESTER pending Social History Tobacco Use Smoking status: Former Current packs/day: 0.00 Types: Cigarettes Quit date: 10/31/1994 Years since quittin.2 Smokeless tobacco: Never Substance Use Topics Alcohol use: Not Currently Past Surgical History: Procedure Laterality Date ANKLE FRACTURE SURGERY Right 01/2011 ORIF COLONOSCOPY 08/2018 COLONOSCOPY 2016 COLONOSCOPY 03/31/2022 Congestion mucosa recto-sigmoid and sigmoid. Repeat colonoscopy 2 years COLONOSCOPY W/ BIOPSIES 01/2020 Dr Thomas vizcarra fall 2021 CYSTOSCOPY 01/13/2018 Normal LIPOMA RESECTION 12/2015 recurrence per Fior LIPOMA RESECTION 2013 right shoulder times 2 per Jeffrey RHINOPLASTY 2007 & sinoplasty TOTAL ABDOMINAL HYSTERECTOMY 2016 simple hyst with USO, fibroids Family History Problem Relation Name Age of Onset Diabetes Mother insulin Other (12004) Mother age 62 of complications of PUD - etohism Crohn's disease Mother Alcohol abuse Mother Osteoporosis Mother Atrial fibrillation Father Kumar Small CHF High Blood Pressure Father Kumar Small Colon cancer Father Kumar Triffin 80 age 87 Objective BP 138/81 Pulse 81 Temp 36.3 C (97.4 F) (Temporal) Ht 5' 6 (1.676 m) Wt 241 lb 12.8 oz (110 kg) SpO2 97% BMI 39.03 kg/m Physical Exam Vitals reviewed. Constitutional: General: She is not in acute distress. Appearance: Normal appearance. She is not ill-appearing or toxic-appearing. HENT: Right Ear: Tympanic membrane and ear canal normal. Left Ear: Tympanic membrane and ear canal normal. Mouth/Throat: Mouth: Mucous membranes are moist. Pharynx: No oropharyngeal exudate or posterior oropharyngeal erythema. Eyes: General: No scleral icterus. Conjunctiva/sclera: Conjunctivae normal. Pupils: Pupils are equal, round, and reactive to light. Cardiovascular: Rate and Rhythm: Normal rate and regular rhythm. Heart sounds: Normal heart sounds. Pulmonary: Effort: Pulmonary effort is normal. No respiratory distress. Breath sounds: Normal breath sounds. Abdominal: General: Bowel sounds are normal. There is no distension. Palpations: Abdomen is soft. Tenderness: There is no abdominal tenderness. Musculoskeletal: Cervical back: Normal range of motion and neck supple. No rigidity. Right lower leg: No edema. Left lower leg: No edema. Lymphadenopathy: Cervical: No cervical adenopathy. Skin: General: Skin is warm and dry. Neurological: Mental Status: She is alert. Psychiatric: Mood and Affect: Mood normal. Data Reviewed and Summarized Labs: Imaging/Testing: Bjorn Tejada PA-C 01/05/2024 Please note that portions of this note may have been completed with voice recognition software. Documentation reviewed prior to signing but minor errors in strip deburrer may have occurred. documented in this [facility]10-15-2024 Note* Addendum Note - Alonso Ratliff - 01/05/2024 8:40 AM EDTAddended by: ALONSO RATLIFF on: 03/17/2024 11:53 AM Modules accepted: Orders [facility]08-20-2024 History of Present illness Narrative* Rolando Ceballos DO - 11/10/2023 12:30 PM EDT Images from the original note were not included. [facility] [address] [facility] [address] Dept: [phone] Dept Loc: [phone] Patient was identified and seen today via Telehealth by agreement and consent. I used the followingTelehealth technology: Audio and video capabilities. Patient location: VV Patient Location: Home. This patient encounter is appropriate and reasonable under the circumstances: too sick to leave home . The patient has been advised of the potential risks and limitations of this mode of treatment (including but not limited to the absence of in-person examination) and has agreed to be treated in a remote fashion in spite of them. Any and all of the patient's/patient's family's questions on this issue have been answered and I have made no promises or guarantees to the patient. The patient has alsobeen advised to contact this office for worsening conditions or problems, and seek emergency medical treatment and/or call 911 if the patient deems either necessary. The patient stated that they are currently in the [facility]. If the patient is a minor, permission has been obtained by the parent or guardian for the patient to receive medical care at this visit. Assessment/Plan Diagnoses and all orders for this visit: COVID-19 (Primary) Comments: Acute onset, Paxlovid, vitamin D vitamin C and Robitussin Ulcerative colitis without complications, unspecified location (HCC) Other orders - Nirmatrelvir&Ritonavir 300/100 (Paxlovid, 300/100,) 20 x 150 MG & 10 x 100MG tablet therapy pack; Take 3 tablets by mouth in the morning and 3 tablets in the evening. Do all this for 5 days. On the video she was alert and oriented. No acute distress. Able to speak sentences without interruption or wheezing. No pallor or cyanosis noted. No cough was evident. No follow-ups on file. Patient instructed to call with any worsening or prolonged Sore throat, cough, chest pain, shortness of breath, body aches, fever, and diarrhea. Danisha Holder is a 58 y.o. who presents on the video for a remote visit. Chief complaint: No chief complaint on file. COVID illness with mild cough, nasal congestion, and low-grade fever. HPI Patient with stable ulcerative colitis presents with 4 to 5 days of mild cough and bodyaches. Feverhas resolved. No headache or confusion. No vomiting or diarrhea. Would like to consider going on Paxlovid. 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 No sense of shortness ofbreath or pleurisy. Has not been checking oxygen levels. Allergies Allergen Reactions Acetaminophen Gadolinium Dizziness Nausea Latex Itching Swelling redness Oxycodone Itching Sulfa Antibiotics Nausea Only Other reaction(s): Leukocytosis (elevated number [] PMH, allergies, and social history reviewed and updated as appropriate [] Medication list reviewed/updated [] Allergies reviewed/updated [] Problem list reviewed/updated [] Patient requests medication refills, see below for orders. Rolando Ceballos DO 11/10/2023 10:34 PM documented in this [facility]08-19-2024 Telephone encounter Note* Telephone Encounter - Brianna Stokes RN - 11/09/2023 2:55 PM EDT S: Patient spoke with CAC nurse regarding cough and congestion, COVID positive. B: Onset of symptoms/concern: symptoms started Thursday. A: Patient states she has dry cough and nasal/sinus congestion, clear drainage. States she had fever, headache and body ache, those symptoms have resolved. Denies difficulty breathing. Denies chest pain. Patient is requesting PAXLOVID. R: Patient understands care advice for COVID symptoms. No appointments available today, offered to POD schedule for an appointment today, patient declines. [email or web address] video visit scheduled on 11/10/23 at12:30PM. The type, date, provider, time of appointment were reviewed and insurance verified with the patient. Patient verbalizes understanding. No further needs at this time. Patient instructed to call back with new or worsening symptoms. Reason for Disposition HIGH RISK patient (e.g., weak immune system, age > 64 years, obesity with BMI of 30 or higher, , chronic lung disease or other chronic medical condition) and COVID symptoms (e.g., cough, fever) (Exceptions: Already seen by doctor or FORKLIFT PICKER/PA and no new or worsening symptoms.) Protocols used: Coronavirus (COVID-19) Diagnosed or [id number] [facility] [id number] Miscellaneous Notes* Telephone Encounter - Brianna Stokes RN - 11/09/2023 2:55 PM EDT S: Patient spoke with [facility] nurse regarding cough and congestion, COVID positive. B: Onset of symptoms/concern: symptoms started Thursday. A: Patient states she has dry cough and nasal/sinus congestion, clear drainage. States she had fever, headache and body ache, those symptoms have resolved. Denies difficulty breathing. Denies chest pain. Patient is requesting PAXLOVID. R: Patient understands care advice for COVID symptoms. No appointments available today, offered to POD schedule for an appointment today, patient declines. MyChart video visit scheduled on 11/10/23 at12:30PM. The type, date, provider, time of appointment were reviewed and insurance verified with the patient. Patient verbalizes understanding. No further needs at this time. Patient instructed to call back with new or worsening symptoms. Reason for Disposition HIGH RISK patient (e.g., weak immune system, age > 64 years, obesity with BMI of 30 or higher, , chronic lung disease or other chronic medical condition) and COVID symptoms (e.g., cough, fever) (Exceptions: Already seen by doctor or FORKLIFT PICKER/PA and no new or worsening symptoms.) Protocols used: Coronavirus (COVID-19) Diagnosed or [id number] documented in this encounterSLima City [id number] Telephone encounter Note* Telephone Encounter - Alonso Ratliff - 2023 1:39 PM EST Per pt; Her current ins has termed on 03/22/23. No new card on file. Pt advised that this is a covered benefit and no auth needed. Orders faxed. [facility] [id number] Miscellaneous Notes* Telephone Encounter - Alonso Ratliff - 2023 1:39 PM EST Per pt; Her current ins has termed on 03/22/23. No new card on file. Pt advised that this is a covered benefit and no auth needed. Orders faxed. * Telephone Encounter - Alonso Ratliff - 04/09/2023 3:48 PM EST Unable to do authorization for MRI due to insurance card on file states termed 03/22/23 Abby left message on pt's vm on 04/07/22 for pt to provide us with an updated card. No updated card has been sent in yet. Tried to return call to [facility] about message left. After being transferred numerous timesno one knows who left a message for us to return call. MRI on hold until updated insurance card can be provided and auth done if needed. * Telephone Encounter - Maylin Maciel - 04/06/2023 2:12 PM EST Name of caller: [facility] Contact phone number: [phone] Relationship to Patient: [facility] Provider: Dr. Ceballos Practice: [facility] Chief Complaint/Reason for Call: Need call back concerning MRI auth information. Please advise. Best time of day caller can be reached: any Patient advised that office/PCP has 24-48 business hours to return their call: No * Telephone Encounter - Alin Merrill - 04/03/2023 3:54 PM EST Name of caller: Jen Contact phone number: [phone] Relationship to Patient: patient Provider: Lin Practice: [facility] Chief Complaint/Reason for Call: Pt states at 03/26 appt it was discussed she would like MRI order faxed to [facility] but they never received the order. Pt expressed a lot of frustration about the mixup stating things like this always happen at this office. Called [facility] and obtained fax [phone] and sent MRI order. Received confirmation that RightFax was successfully sent. Documenting for record of encounter. Best time of day caller can be reached: n/a Patient advised that office/PCP has 24-48 business hours to return their call: N/A documented in this [facility]01-18-2024 Telephone encounter Note* Telephone Encounter - Alonso Ratliff - 04/09/2023 3:48 PM EST Unable to do authorization for MRI due to insurance card on file states termed 03/22/23 Abby left message on pt's vm on 04/07/22 for pt to provide us with an updated card. No updated card has been sent in yet. Tried to return call to [facility] about message left. After being transferred numerous timesno one knows who left a message for us to return call. MRI on hold until updated insurance card can be provided and auth done if needed. [facility] [id number] Miscellaneous Notes* Telephone Encounter - Alonso Ratliff - 04/09/2023 3:48 PM EST Unable to do authorization for MRI due to insurance card on file states termed 03/22/23 Abby left message on pt's vm on 04/07/22 for pt to provide us with an updated card. No updated card has been sent in yet. Tried to return call to [facility] about message left. After being transferred numerous timesno one knows who left a message for us to return call. MRI on hold until updated insurance card can be provided and auth done if needed. * Telephone Encounter - Maylin Maciel - 04/06/2023 2:12 PM EST Name of caller: Scheduling [facility] Contact phone number: [phone] Relationship to Patient: [facility] Provider: Dr. Ceballos Practice: [facility] Chief Complaint/Reason for Call: Need call back concerning MRI auth information. Please advise. Best time of day caller can be reached: any Patient advised that office/PCP has 24-48 business hours to return their call: No * Telephone Encounter - Alin Irene Merrill - 04/03/2023 3:54 PM EST Name of caller: [facility] Contact phone number: [phone] Relationship to Patient: patient Provider: Lin Practice: [facility] Chief Complaint/Reason for Call: Pt states at 03/26 appt it was discussed she would like MRI order faxed to [facility] but they never received the order. Pt expressed a lot of frustration about the mixup stating things like this always happen at this office. Called [facility] and obtained fax [phone] and sent MRI order. Received confirmation that RightFax was successfully sent. Documenting for record of encounter. Best time of day caller can be reached: n/a Patient advised that office/PCP has 24-48 business hours to return their call: N/A documented in this [facility]01-15-2024 Miscellaneous Notes* Telephone Encounter - Maylin Maciel - 04/06/2023 2:12 PM EST Name of caller: Scheduling [facility] Contact phone number: [phone] Relationship to Patient: [facility] Provider: Dr. Ceballos Practice: [facility] Chief Complaint/Reason for Call: Need call back concerning MRI auth information. Please advise. Best time of day caller can be reached: any Patient advised that office/PCP has 24-48 business hours to return their call: No * Telephone Encounter - Alin Merrill - 04/03/2023 3:54 PM EST Name of caller: Jen Contact phone number: [phone] Relationship to Patient: patient Provider: Lin Practice: [facility] Chief Complaint/Reason for Call: Pt states at 03/26 appt it was discussed she would like MRI order faxed to [facility] but they never received the order. Pt expressed a lot of frustration about the mixup stating things like this always happen at this office. Called [facility] and obtained fax [phone] and sent MRI order. Received confirmation that RightFax was successfully sent. Documenting for record of encounter. Best time of day caller can be reached: n/a Patient advised that office/PCP has 24-48 business hours to return their call: N/A documented in this encounterSLima City [id number] Telephone encounter Note* Telephone Encounter - Maylin Maciel - 04/06/2023 2:12 PM EST Name of caller: Scheduling [facility] Contact phone number: [phone] Relationship to Patient: [facility] Provider: Dr. Ceballos Practice: [facility] Chief Complaint/Reason for Call: Need call back concerning MRI auth information. Please advise. Best time of day caller can be reached: any Patient advised that office/PCP has 24-48 business hours to return their call: No [facility] [id number] Telephone encounter Note* Telephone Encounter - Alin Merrill - 04/03/2023 3:54 PM EST Name of caller: Jen Contact phone number: [phone] Relationship to Patient: patient Provider: Lin Practice: [facility] Chief Complaint/Reason for Call: Pt states at 03/26 appt it was discussed she would like MRI order faxed to [facility] but they never received the order. Pt expressed a lot of frustration about the mixup stating things like this always happen at this office. Called [facility] and obtained fax [phone] and sent MRI order. Received confirmation that RightFax was successfully sent. Documenting for record of encounter. Best time of day caller can be reached: n/a Patient advised that office/PCP has 24-48 business hours to return their call: N/A [facility] [id number] Miscellaneous Notes* Telephone Encounter - Alin Merrill - 04/03/2023 3:54 PM EST Name of caller: Jen Contact phone number: [phone] Relationship to Patient: patient Provider: Lin Practice: [facility] Chief Complaint/Reason for Call: Pt states at 03/26 appt it was discussed she would like MRI order faxed to [facility] but they never received the order. Pt expressed a lot of frustration about the mixup stating things like this always happen at this office. Called [facility] and obtained fax [phone] and sent MRI order. Received confirmation that RightFax was successfully sent. Documenting for record of encounter. Best time of day caller can be reached: n/a Patient advised that office/PCP has 24-48 business hours to return their call: N/A documented in this encounterSLima City [id number] Telephone encounter Note* Telephone Encounter - Alin Merrill - 04/03/2023 3:42 PM EST . [facility] [id number] Miscellaneous Notes* Telephone Encounter - Alin Merrill - 04/03/2023 3:42 PM EST . documented in this [facility]01-04-2024 History of Present illness Narrative* Bjorn Tejada PA-C - 03/26/2023 10:40 AM EST Images from the original note were not included. [facility] [address] [facility] [address] Dept: [phone] Dept Loc: [phone] Visit type: Established Patient Reason for Visit: got flu shot and pain in the injection site (Got vaccine Thursday before ) Assessment and Plan 1. Chronic left shoulder pain - MR shoulder left wo IV contrast - Diclofenac Sodium (Voltaren) 1 % gel; Apply 2 g topically 2 times daily., Starting Serene 03/26/2023, Normal 2. Obesity (BMI 30-39.9) - Tirzepatide-Weight Management (Zepbound) 2.5 MG/0.5ML solution auto-injector; Inject 2.5 mg underthe skin 1 (one) time per week., Starting Serene 03/26/2023, Normal -Patient has left shoulder pain worse with drop arm testing abduction and hocking and Neer's test are positive would be suggestive of either rotator cuff versus impingement syndrome versus a labral tear of the left shoulder he has been persistent and ongoing for the last several years getting progressively worse. To the point there does appear to be muscle atrophy of the left shoulder due to difficulty with range of motion and activity. There is no signs of infections or effusions there is no signs of septic joint or other acute abnormalities is no signs of neurologic deficit. -Patient was concerned with what questing information about Ozempic and weight loss as her BMI is 39.2 we did discuss Ozempic and Mounjaro versus the new equivalent of Mounjaro, zepbound. Patient would like to try this medication we did discuss risks and benefits and associated side effects of the medication she is understanding this and would like a prescription to help with weight loss we did discuss the importance of dietary restrictions exercise and activity. Follow up if symptoms worsen or fail to improve, for Next scheduled follow-up. Subjective HPI this is a 57-year-old female with underlying history of ulcerative colitis contacted the [facility] on03/19 for concerns of left arm pain. Patient reports that she had gotten her flu vaccination on around in the left arm and ever since then she has been having pain. Aleve does help very minimally. Symptoms started aroudn time of first covid vaccine. Patient states that she feels every time she gets a vaccination in her left arm it causes a great deal of pain and discomfort she states this has been ongoing ever since she got the first COVID vaccination back in 2019 states she gets vaccinations and then deals with pain in her left shoulder the last 3 to 5 months if not longer and eventually does settle down but she has persistence and recurrence of pain in the left shoulder she just recently got the flu shot around gi time and now she is having severe and persistent pain with limited range of motion due to the pain. Initially denied any episode of injury or trauma but did report a fall about 10 years ago he statesshe was having a hard time laying on that left shoulder and that lasted for about a year but eventually she forgot about it and the symptoms went away she was not sure if they were directly correlated or related. Review of Systems Constitutional: Negative for chills and fever. HENT: Negative for congestion and sore throat. Respiratory: Negative for cough and shortness of breath. Cardiovascular: Negative for chest pain. Gastrointestinal: Negative for abdominal pain, diarrhea, nausea and vomiting. Musculoskeletal: Positive for arthralgias. Negative for back pain. Neurological: Negative for dizziness and light-headedness. All other systems reviewed and are negative. Allergies Allergen Reactions Acetaminophen Gadolinium Dizziness Nausea Latex Itching Swelling redness Oxycodone Itching Sulfa Antibiotics Nausea Only Other reaction(s): Leukocytosis (elevated number Outpatient Medications Prior to Visit Medication Sig Dispense Refill calcium carbonate 1500 (600 Ca) MG tablet Take by mouth. cholecalciferol (D3-5) 5,000 Units tablet Cyanocobalamin (VITAMIN B 12 PO) Take by mouth. ferrous sulfate 325 (65 Fe) MG tablet Take 325 mg by mouth. folic acid (Folvite) 1 MG tablet LACTOBACILLUS PROBIOTIC PO Take by mouth. Potassium 99 MG tablet Take by mouth. sulfaSALAzine (Azulfidine) 500 MG tablet therapeutic multivitamin-minerals (Theragran-M) tablet Take 1 tablet by mouth daily. triamcinolone (Kenalog) 0.5 % cream Apply topically 2 times daily. 30 g 1 esomeprazole (NexIUM) [address] capsule Take 1 capsule (20 mg) by mouth every morning (before breakfast). Do not open capsule. (Patient not taking: Reported on 03/26/2023) 30 capsule 2 No facility-administered medications prior to visit. Past Medical History: Diagnosis Date Allergic rhinitis stopped immunotherapy 2005 Breast cancer screening 04/2020 Dr. Fraga Cholelithiasis relatively asx Eczema Encounter for gynecological examination Dr. Medrano/Renard Family history of diabetes mellitus mother H/O colonoscopy 01/2020 Dr. Thomas vizcarra 02/11 History of Clostridioides difficile infection 2017 ? 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 Lupillo FORRESTER pending Social History Tobacco Use Smoking status: Former Packs/day: 1 Types: Cigarettes Quit date: 10/31/1994 Years since quittin.4 Smokeless tobacco: Never Substance Use Topics Alcohol use: Yes Alcohol/week: 0.0 standard drinks of alcohol Past Surgical History: Procedure Laterality Date ANKLE FRACTURE SURGERY Right 01/2011 ORIF COLONOSCOPY 08/2018 COLONOSCOPY 2016 COLONOSCOPY 03/31/2022 Congestion mucosa recto-sigmoid and sigmoid. Repeat colonoscopy 2 years COLONOSCOPY W/ BIOPSIES 01/2020 Dr Thomas vizacrra fall 2021 CYSTOSCOPY 01/13/2018 Normal LIPOMA RESECTION 12/2015 recurrence per Fior LIPOMA RESECTION 2013 right shoulder times 2 per Jeffrey RHINOPLASTY 2007 & sinoplasty TOTAL ABDOMINAL HYSTERECTOMY 2016 simple hyst with USO, fibroids Family History Problem Relation Name Age of Onset Diabetes Mother insulin Other (86896) Mother age 62 of complications of PUD - etohism Crohn's disease Mother Alcohol abuse Mother Osteoporosis Mother Atrial fibrillation Father Kumar Small CHF High Blood Pressure Father Kumar Small Colon cancer Father Kumar Small 80 age 87 Objective BP (!) 122/100 (BP Location: Right arm, Patient Position: Sitting, BP Cuff Size: Large adult) Pulse 99 Temp 36.4 C (97.5 F) (Temporal) Ht 5' 6 (1.676 m) Wt 243 lb (110 kg) SpO2 98% BMI 39.22 kg/m Physical Exam Vitals reviewed. Constitutional: General: She is not in acute distress. Appearance: Normal appearance. She is not ill-appearing or toxic-appearing. Eyes: General: No scleral icterus. Conjunctiva/sclera: Conjunctivae normal. Pupils: Pupils are equal, round, and reactive to light. Cardiovascular: Rate and Rhythm: Normal rate and regular rhythm. Pulmonary: Effort: Pulmonary effort is normal. No respiratory distress. Musculoskeletal: General: Tenderness present. No swelling. Cervical back: Normal range of motion and neck supple. Comments: Significant tenderness of the left shoulder specifically with range of motion including positive Farrell and Neer's testing positive drop arm testing limited range of motion there does appear to be muscle atrophy over the superior posterior lateral aspect of the shoulder with mild atrophynoted within the deltoid musculature. Good distal pulses. Skin: General: Skin is warm and dry. Neurological: Mental Status: She is alert. Psychiatric: Mood and Affect: Mood normal. Data Reviewed and Summarized Labs: Imaging/Testing: Bjorn Tejada PA-C 03/26/2023 Please note that portions of this note may have been completed with voice recognition software. Documentation reviewed prior to signing but minor errors in strip deburrer may have occurred. documented in this [facility]01-04-2024 History of Present illness Narrative* Bjorn Tejada PA-C - 03/26/2023 10:40 AM EST Images from the original note were not included. [facility] [address] [place] [address] [address] [facility] [address] Dept: [phone] Dept Loc: [phone] Visit type: Established Patient Reason for Visit: got flu shot and pain in the injection site (Got vaccine Thursday before ) Assessment and Plan 1. Chronic left shoulder pain - MR shoulder left wo IV contrast - Diclofenac Sodium (Voltaren) 1 % gel; Apply 2 g topically 2 times daily., Starting Serene 03/26/2023, Normal 2. Obesity (BMI 30-39.9) - Tirzepatide-Weight Management (Zepbound) 2.5 MG/0.5ML solution auto-injector; Inject 2.5 mg underthe skin 1 (one) time per week., Starting Serene 03/26/2023, Normal -Patient has left shoulder pain worse with drop arm testing abduction and hocking and Neer's test are positive would be suggestive of either rotator cuff versus impingement syndrome versus a labral tear of the left shoulder he has been persistent and ongoing for the last several years getting progressively worse. To the point there does appear to be muscle atrophy of the left shoulder due to difficulty with range of motion and activity. There is no signs of infections or effusions there is no signs of septic joint or other acute abnormalities is no signs of neurologic deficit. -Patient was concerned with what questing information about Ozempic and weight loss as her BMI is 39.2 we did discuss Ozempic and Mounjaro versus the new equivalent of Mounjaro, zepbound. Patient would like to try this medication we did discuss risks and benefits and associated side effects of the medication she is understanding this and would like a prescription to help with weight loss we did discuss the importance of dietary restrictions exercise and activity. Follow up if symptoms worsen or fail to improve, for Next scheduled follow-up. Subjective HPI this is a 57-year-old female with underlying history of ulcerative colitis contacted the [facility] on03/19 for concerns of left arm pain. Patient reports that she had gotten her flu vaccination on around in the left arm and ever since then she has been having pain. Aleve does help very minimally. Symptoms started aroudn time of first covid vaccine. Patient states that she feels every time she gets a vaccination in her left arm it causes a great deal of pain and discomfort she states this has been ongoing ever since she got the first COVID vaccination back in 2019 states she gets vaccinations and then deals with pain in her left shoulder the last 3 to 5 months if not longer and eventually does settle down but she has persistence and recurrence of pain in the left shoulder she just recently got the flu shot around time and now she is having severe and persistent pain with limited range of motion due to the pain. Initially denied any episode of injury or trauma but did report a fall about 10 years ago he statesshe was having a hard time laying on that left shoulder and that lasted for about a year but eventually she forgot about it and the symptoms went away she was not sure if they were directly correlated or related. Review of Systems Constitutional: Negative for chills and fever. HENT: Negative for congestion and sore throat. Respiratory: Negative for cough and shortness of breath. Cardiovascular: Negative for chest pain. Gastrointestinal: Negative for abdominal pain, diarrhea, nausea and vomiting. Musculoskeletal: Positive for arthralgias. Negative for back pain. Neurological: Negative for dizziness and light-headedness. All other systems reviewed and are negative. Allergies Allergen Reactions Acetaminophen Gadolinium Dizziness Nausea Latex Itching Swelling redness Oxycodone Itching Sulfa Antibiotics Nausea Only Other reaction(s): Leukocytosis (elevated number Outpatient Medications Prior to Visit Medication Sig Dispense Refill calcium carbonate 1500 (600 Ca) MG tablet Take by mouth. cholecalciferol (D3-5) 5,000 Units tablet Cyanocobalamin (VITAMIN B 12 PO) Take by mouth. ferrous sulfate 325 (65 Fe) MG tablet Take 325 mg by mouth. folic acid (Folvite) 1 MG tablet LACTOBACILLUS PROBIOTIC PO Take by mouth. Potassium 99 MG tablet Take by mouth. sulfaSALAzine (Azulfidine) 500 MG tablet therapeutic multivitamin-minerals (Theragran-M) tablet Take 1 tablet by mouth daily. triamcinolone (Kenalog) 0.5 % cream Apply topically 2 times daily. 30 g 1 esomeprazole (NexIUM) [address] capsule Take 1 capsule (20 mg) by mouth every morning (before breakfast). Do not open capsule. (Patient not taking: Reported on 03/26/2023) 30 capsule 2 No facility-administered medications prior to visit. Past Medical History: Diagnosis Date Allergic rhinitis stopped immunotherapy 2006 Breast cancer screening 04/2020 Dr. Fraga Cholelithiasis relatively asx Eczema Encounter for gynecological examination Dr. Medrano/Renard Family history of diabetes mellitus mother H/O colonoscopy 01/2020 Friend- due 02/11 History of Clostridioides difficile infection 2018 ? 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 Lupillo FORRESTER pending Social History Tobacco Use Smoking status: Former Packs/day: 1 Types: Cigarettes Quit date: 10/31/1994 Years since quittin.4 Smokeless tobacco: Never Substance Use Topics Alcohol use: Yes Alcohol/week: 0.0 standard drinks of alcohol Past Surgical History: Procedure Laterality Date ANKLE FRACTURE SURGERY Right 01/2011 ORIF COLONOSCOPY 08/2018 COLONOSCOPY 2016 COLONOSCOPY 03/31/2022 Congestion mucosa recto-sigmoid and sigmoid. Repeat colonoscopy 2 years COLONOSCOPY W/ BIOPSIES 01/2020 Dr Ewing- due fall 2021 CYSTOSCOPY 01/13/2018 Normal LIPOMA RESECTION 12/2015 recurrence per Fior LIPOMA RESECTION 2013 right shoulder times 2 per Jeffrey RHINOPLASTY 2007 & sinoplasty TOTAL ABDOMINAL HYSTERECTOMY 2016 simple hyst with USO, fibroids Family History Problem Relation Name Age of Onset Diabetes Mother insulin Other (81330) Mother age 62 of complications of PUD - etohism Crohn's disease Mother Alcohol abuse Mother Osteoporosis Mother Atrial fibrillation Father Kumar Small CHF High Blood Pressure Father Kumar Small Colon cancer Father Kumar Small 80 age 87 Objective BP (!) 122/100 (BP Location: Right arm, Patient Position: Sitting, BP Cuff Size: Large adult) Pulse 99 Temp 36.4 C (97.5 F) (Temporal) Ht 5' 6 (1.676 m) Wt 243 lb (110 kg) SpO2 98% BMI 39.22 kg/m Physical Exam Vitals reviewed. Constitutional: General: She is not in acute distress. Appearance: Normal appearance. She is not ill-appearing or toxic-appearing. Eyes: General: No scleral icterus. Conjunctiva/sclera: Conjunctivae normal. Pupils: Pupils are equal, round, and reactive to light. Cardiovascular: Rate and Rhythm: Normal rate and regular rhythm. Pulmonary: Effort: Pulmonary effort is normal. No respiratory distress. Musculoskeletal: General: Tenderness present. No swelling. Cervical back: Normal range of motion and neck supple. Comments: Significant tenderness of the left shoulder specifically with range of motion including positive Farrell and Neer's testing positive drop arm testing limited range of motion there does appear to be muscle atrophy over the superior posterior lateral aspect of the shoulder with mild atrophynoted within the deltoid musculature. Good distal pulses. Skin: General: Skin is warm and dry. Neurological: Mental Status: She is alert. Psychiatric: Mood and Affect: Mood normal. Data Reviewed and Summarized Labs: Imaging/Testing: Bjorn Tejada PA-C 03/26/2023 Please note that portions of this note may have been completed with voice recognition software. Documentation reviewed prior to signing but minor errors in strip deburrer may have occurred. documented in this [facility]01-04-2024 Miscellaneous Notes* Addendum Note - Bjorn Tejada PA-C - 03/26/2023 10:40 AM ESTAddended by: BJORN TEJADA on: 03/27/2023 09:50 AM Modules accepted: Level of Service documented in this [facility]01-04-2024 Note* Addendum Note - Bjorn Tejada PA-C - 03/26/2023 10:40 AM ESTAddended by: BJORN TEJADA on: 03/27/2023 09:50 AM Modules accepted: Level of Service [id number] History and physical note Author Marisa Palm [facility] January 23, 2023 7:05am Note Date/Time January 23, 2023 7 :05am [facility] Medical Records Department [address] [place] [address] History & Physical Exam 01/23/23 0705 MR#: [id number] Acct: [id number] Name: JEN HOLDER Rep #:[id number] : 1965 57 From: Marisa Palm MD PCP: Dr. Bhavesh Guerrero DO Status:[facility] Location: [place] [address] History and Physical Date of Admission: 01/23/23 Date of Service: 12/29/22 MR#: [id number] Acct: [id number] Name: JEN HOLDER Rep #: [id number] : 1965 Provider: Dr. Marisa Palm MD Age/Sex: 57/F Location: [facility] Status: Signed Intake Vital Signs 07/30/2309:52 12/30/2307:31 Height 5 ft 6 in 5 ft 6 in Weight: 241 lb BMI 38.9 BP 156/104 H Blood Pressure Location Rt brachial Position Sitting Respiration 17 Pulse 86 Pulse Source Monitor Pulse Oximetry (%) 96 Oxygen Delivery Method room air Intake Visit Reasons: Lipoma middle of back Chief Complaint: lipoma of back Is patient in pain?: No Allergies acetaminophen [From Percocet] Allergy (Verified 12/29/22 08:32) Itchinglatex Allergy (Verified 12/29/22 08:32) Itchingoxycodone [From Percocet] Allergy (Verified 12/29/22 08:32) ItchingIodinated Contrast Media [Iodinated Contrast- Oral and IV Dye] Adverse Reaction (Verified 12/29/22 08:32) NAUSEA,DIAPHORESISSulfa (Sulfonamide Antibiotics) Adverse Reaction (Verified 12/29/22 08:32) UNABLE TO TAKE WITH CROHNS DISEASE Medications multivitamin with folic acid 400 mcg tablet 1 tab PO DAILY 12/26/15 [History Confirmed 12/29/22] iron, carbonyl 45 mg tablet 65 mg PO DAILYCM 01/10/16 [History Confirmed 12/29/22] calcium carbonate 500 mg calcium (1,250 mg) tablet 500 mg PO DAILY 01/07/18 [History Confirmed 12/29/22] potassium 99 mg tablet 550 mg PO DAILY 01/07/18 [History Confirmed 12/29/22] Lactobac no.2-Bifidobac no.1-S. thermo 112.5 billion cell capsule (VSL#3) 1 cap PO DAILY #30 caps 12/21/20 [Rx Confirmed 12/29/22] cyanocobalamin-liver extract tablet 1 tab PO DAILY 03/27/22 [History Confirmed 12/29/22] folic acid 1 mg tablet 1 mg PO DAILY 03/27/22 [History Confirmed 12/29/22] sulfasalazine 500 mg tablet 1 g PO QHS 03/27/22 [History Confirmed 12/29/22] sulfasalazine 500 mg tablet 500 mg PO DAILY 03/27/22 [History Confirmed 12/29/22] esomeprazole magnesium 20 mg capsule,delayed release 20 mg PO DAILY 07/30/22 [History Confirmed 12/29/22] [facility] Medical History (Updated 12/29/22 @ 08:30 by Naren Qureshi) Acute pharyngitis, unspecified Anemia Anxiety Arthritis Back pain Blepharitis of right lower eyelid Conjunctivitis, right eye COVID-19 long hauler manifesting chronic cough Diabetes Diarrhea Fatty liver Fatty liver Former smoker Heartburn History of echocardiogram Hx of ulcerative colitis Injury of back Leg cramps Migraine headache Shortness of breath on exertion Strain of right knee Wears glasses Surgical History H/O: hysterectomy History of ankle surgery History of sinus surgery Hx of colonoscopy Hx of cystoscopy lipoma removal Family History (Updated 12/29/22 @ 08:31 by Naren Qureshi) Mother Diabetes Thyroid disorderFather Colon cancer Heart disease Hypertension CVA (cerebral vascular accident)Other Colitis Ulcerative colitis Social History Smoking Status: Former smoker alcohol intake: never HPI HPI HPI: 70-year-old female present due to right mid back lipoma. Patient noticed this [place] Patient had another 1 previously removed on her right shoulder. Patient denies pain at this area or change in overlying skin. This area is larger and patient would like it excised. ROS General General: Yes weight change; No weakness HEENT HEENT: No difficulty swallowing, eye injury, eye surgery, swollen glands or hoarseness Endo Endocrine: No thyroid disease, diabetes mellitus, thyroid cancer, Hair loss, heat intolerance or cold intolerance Skin Skin: Yes rash; No changing moles Musc Musculoskeletal: No back problems, arthritis, rheumatoid arthritis, gout or joint pain Cardio Cardiovascular: No murmur, pacemaker, heart disease, atrial fibrillation, high blood pressure, heart attack, heart stent, palpitations, shortness of breat withexertion or chest pain Psych Psychiatric: No depression, anxiety or hearing voices Resp Respiratory: Yes shortness of breath, No sleep apnea, No cough, No COPD, Yes asthma, No emphysema and No wheezing Gastro Gastrointestinal: No abdominal pain, No nausea or vomiting, Yes diarrhea, No constipation, No blood in stool, No acid reflux, No hemorrhoids, Yes ulcers, Yesgallbladder problem and No black,tarry stools Dennys Hematologic: No blood thinners, No blood disorders, No bleeding, No anemia and No blood clots Neuro Neurologic: No system reviewed and no additional complaints, except as documented, No as per HPI, No abnormal gait, No abnormal hearing, No abnormal movements, No abnormal speech, No behavioral changes, No burning sensations, No confusion, No convulsions, No disequilibrium, No dizziness, No localized weakness, No frequent falls, No headache(s), No lack of coordination, No loss ofvision, No memory loss, No numbness, No other visual disturbances, No radicular pain, No restless legs, No sensory deficit, No syncope, No tingling, No tremor(s), No weakness and No other Exam Const General: cooperative, healthy appearing, comfortable and no acute distress [facility] Head: normocephalic and atraumatic Neck Neck: supple Resp Effort & Inspection: normal respiratory effort Cardio Rate: regular rate GI Inspection: non-distended Skin Other: Right medial superior back lipoma about 8 x 8 cm, soft, mobile, no change in overlying skin, nontender. Neuro General: CN's II-XI intact bilaterally Extrem General: normal to inspection Psych Mental Status: mental status grossly normal Attitude: cooperative Assessment and Plan Assessment and Plan (1) Lipoma of back: Status: Acute Plan We will plan for excision of right mid back lipoma with MAC anesthesia in the OR. Described the procedure including but not limited to risk of bleeding, infection, seroma, and recurrent lipomas. Patient no further question this time. Marisa Palm M.D. Pager: [phone] [facility] [address] [place] [address], [facility], [address] [place] [id number] Office: [phone] Coding Level of Care Code Off vis,new,level 3 Diagnoses Lipoma of back D17.1 12/29/22 0847 <Electronically signed by Marisa Palm MD> Date Marisa Palm MD 01/23/23 07 <Electronically signed by Marisa Palm MD> Cosigner Signature (if applicable): CC: Dr. Bhavesh Guerrero DO; Dr. Marisa Palm MD~ Signed ADDENDUM by Dr. Marisa Palm MD on 01/23/23 at 0705 Addendum I have examined the patient and the H&P has been reviewed. There are no clinicalchanges since date of exam. 01/23/23704<Electronically signed by Marisa Palm MD> Cosigner Signature (if applicable): cc: Dr. Bhavesh Guerrero DO; Dr. Marisa Palm MD ~* Signed [facility] Work Phone: [phone] 999-261011-03-2023 Procedure [facility] 12-17-2022 Telephone encounter Note* Telephone Encounter - Kamini Lemons - 12/17/2022 8:57 AM EDT Faxed referral, demo, ID and summary of care to: Dr. Collins Baez [address] [place] [address] Pt was informed in another TE by [facility] [id number] Miscellaneous Notes* Telephone Encounter - Kamini Lemons - 12/17/2022 8:57 AM EDT Faxed referral, demo, ID and summary of care to: Dr. Collins Baez [address] [place] [address] Pt was informed in another TE by Alisa Monae * Telephone Encounter - Alonso Ratliff - 12/12/2022 10:50 AM EDT Will send to Kamini to proceed with scheduling * Telephone Encounter - Lata Faustin MA - 12/11/2022 3:42 PM EDT Placed call to patient. Two patient identifers confirmed. Was able to speak to patient. All concerns in message have been addressed. No questions at this time. Call ended Patient wants referral sent to [facility]. * Telephone Encounter - Anna Curiel - 12/10/2022 4:21 PM EDT Name of caller: Jen Holder Relationship to patient: Patient Contact phone number: [phone] Speciality referral requested for: General Surgery Diagnosis or reason for referral: Patient has history of Lipomas (used to see Dr Guerrero in which it should be documented). Patient currently has one in middle of back and would like to see a surgeon to have it removed. If Dr Ceballos needs to see patient first, please contact patient to schedule appointment. Name of specialist: to be advised Name of group/practice: [facility] Patient verified insurance covers referral: unknown Patient insurance: Maria Elena Zavaleta Has patient seen this specialist in the past: unknown Estimated time/date patient last saw the specialist: n/a documented in this [facility]09-27-2023 Telephone encounter Note* Telephone Encounter - Kamini Lemons - 12/17/2022 8:54 AM EDT Faxed referral, demo, ID and summary of care to: Dr. Collins Baez [address] [place] [address] [facility] [id number] Miscellaneous Notes* Telephone Encounter - Kamini Lemons - 12/17/2022 8:54 AM EDT Faxed referral, demo, ID and summary of care to: Dr. Collins Baez [address] [place] [address] * Telephone Encounter - Alisa Monae MA - 12/16/2022 2:21 PM EDT Patient aware. Referral faxed. Patient was upset that she can not call right into the office. Stated the call center never gest the right information over the office. Advised patient to sign up for [email or web address] to be able to get a message right to the office. Link sent to email on file. * Telephone Encounter - Rupinder Aguilar - 12/16/2022 9:30 AM EDT New referral needed for General Surgery. Please return call to patient Name of caller: Jen Relationship to patient: patient Contact phone number: [phone] Speciality referral requested for: General Surgery Diagnosis or reason for referral: General Surgery Name of specialist: Dr. Baez Name of group/practice: [facility], [address] [facility] [address], [place], [place] [phone] Patient verified insurance covers referral: Yes Patient insurance: [employer] Has patient seen this specialist in the past: No Estimated time/date patient last saw the specialist: n/a documented in this encounterSLima [facility] [id number] Telephone encounter Note* Telephone Encounter - Alisa Monae MA - 12/16/2022 2:21 PM EDT Patient aware. Referral faxed. Patient was upset that she can not call right into the office. Stated the call center never gest the right information over the office. Advised patient to sign up for [employer] to be able to get a message right to the office. Link sent to email on file. [facility] [id number] Telephone encounter Note* Telephone Encounter - Rupinder Aguilar - 12/16/2022 9:30 AM EDT New referral needed for General Surgery. Please return call to patient Name of caller: Jen Relationship to patient: patient Contact phone number: [phone] Speciality referral requested for: General Surgery Diagnosis or reason for referral: General Surgery Name of specialist: Dr. Baez Name of group/practice: [facility], [address] [facility] [address], [place], [place] [phone] Patient verified insurance covers referral: Yes Patient insurance: [employer] Has patient seen this specialist in the past: No Estimated time/date patient last saw the specialist: n/a [facility] [id number] Telephone encounter Note* Telephone Encounter - Alonso Ratliff - 12/12/2022 10:50 AM EDT Will send to Kamini to proceed with scheduling [facility] [id number] Telephone encounter Note* Telephone Encounter - Lata Faustin MA - 12/11/2022 3:42 PM EDT Placed call to patient. Two patient identifers confirmed. Was able to speak to patient. All concerns in message have been addressed. No questions at this time. Call ended Patient wants referral sent to [facility]. [facility] [id number] Telephone encounter Note* Telephone Encounter - Anna Curiel - 12/10/2022 4:21 PM EDT Name of caller: Jen Holder Relationship to patient: Patient Contact phone number: [phone] Speciality referral requested for: General Surgery Diagnosis or reason for referral: Patient has history of Lipomas (used to see Dr Guerrero in which it should be documented). Patient currently has one in middle of back and would like to see a surgeon to have it removed. If Dr Ceballos needs to see patient first, please contact patient to schedule appointment. Name of specialist: to be advised Name of group/practice: [facility] Patient verified insurance covers referral: unknown Patient insurance: Phillipjayirene Zavaleta Has patient seen this specialist in the past: unknown Estimated time/date patient last saw the specialist: n/a [facility] [id number] History of Present illness Narrative* Bjorn Tejada PA-C - 11/18/2022 8:00 AM EDT Images from the original note were not included. [facility] [address] [facility] [address] Dept: [phone] Dept Loc: [phone] Visit type: Established Patient Reason for Visit: Employment Physical Assessment and Plan 1. Eczema, unspecified type Comments: Chronic in nature both hands appears to be well controlled requesting refill of Kenalog Orders: - triamcinolone (Kenalog) 0.5 % cream; Apply topically 2 times daily., Starting Thu11/18/2022, Normal 2. GERD without esophagitis Comments: History of the same has tried lfra-clu-pumiwxk medicine with very little success suspects cause of sub acute cough Orders: - esomeprazole (NexIUM) [address] capsule; Take 1 capsule (20 mg) by mouth every morning (before breakfast). Do not open capsule., Starting Thu11/18/2022, Until Thu02/16/2023, Normal Follow up in about 6 months (around 05/21/2023), or if symptoms worsen or fail to improve, for Next scheduled follow-up. Subjective HPI this is a 57-year-old female with an underlying history of ulcerative colitis, cholelithiasis, kidney stones, previous elevated uric acid level at 7.2 in the past had COVID about a year ago presents to the office today for a physical for work. Patient has ongoing issues with generalized fatigueand attributes this to getting little older, I did review her most recent blood work she had a TSH checked less than a year ago was normal and a year prior that was normal as well., chronic micro blood in urine and has bladder scopes in past were normal, suspects stones and otherwise no issues. Previous kidney US shows no signs of kidney cysts, and GI ordered US of liver and shows the stone in GB, patient states she does get these annual exams and has had a full complement of blood work done through [facility] recently. I did review the blood work at the bedside and the levels were all normal she does have a slightly elevated uric acid level as documented however states she does get gout flareups from time to time but she is not currently having any. She does state that the Nexium has helped with her acid reflux and is requesting more of that as well. At this point time she states she is doing remarkably well she denies any current cough cold-like symptoms fever chills rigors nausea vomiting. Mammogram and female exam through [employer] Review of Systems Constitutional: Positive for fatigue. Negative for chills and fever. HENT: Negative for congestion and sore throat. Respiratory: Negative for cough and shortness of breath. Cardiovascular: Negative for chest pain. Gastrointestinal: Negative for abdominal pain, diarrhea, nausea and vomiting. Genitourinary: Negative for difficulty urinating, dysuria, frequency and urgency. Musculoskeletal: Negative for back pain. Neurological: Negative for dizziness and light-headedness. All other systems reviewed and are negative. Allergies Allergen Reactions Acetaminophen Gadolinium Dizziness Nausea Latex Itching Swelling redness Oxycodone Itching Sulfa Antibiotics Nausea Only Other reaction(s): Leukocytosis (elevated number Outpatient Medications Prior to Visit Medication Sig Dispense Refill calcium carbonate 1500 (600 Ca) MG tablet Take by mouth. cholecalciferol (D3-5) 5,000 Units tablet Cyanocobalamin (VITAMIN B 12 PO) Take by mouth. ferrous sulfate 325 (65 Fe) MG tablet Take 325 mg by mouth. folic acid (Folvite) 1 MG tablet LACTOBACILLUS PROBIOTIC PO Take by mouth. Potassium 99 MG tablet Take by mouth. sulfaSALAzine (Azulfidine) 500 MG tablet therapeutic multivitamin-minerals (Theragran-M) tablet Take 1 tablet by mouth daily. triamcinolone (Kenalog) 0.5 % cream Apply topically 2 times daily. 30 g 1 esomeprazole (NexIUM) [address] capsule Take 1 capsule (20 mg) by mouth every morning (before breakfast). Do not open capsule. (Patient not taking: Reported on 11/18/2022) 30 capsule 0 No facility-administered medications prior to visit. Past Medical History: Diagnosis Date Allergic rhinitis stopped immunotherapy 2005 Breast cancer screening 04/2020 Dr. Fraga Cholelithiasis relatively asx Eczema Encounter for gynecological examination Dr. Medrano/Renard Family history of diabetes mellitus mother H/O colonoscopy 01/2020 Friend- due 02/11 History of Clostridioides difficile infection 2017 ? 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 Lupillo FORRESTER pending Social History Tobacco Use Smoking status: Former Packs/day: 1.00 Types: Cigarettes Quit date: 10/31/1994 Years since quittin.0 Smokeless tobacco: Never Substance Use Topics Alcohol use: Yes Alcohol/week: 0.0 standard drinks of alcohol Past Surgical History: Procedure Laterality Date ANKLE FRACTURE SURGERY Right 01/2011 ORIF COLONOSCOPY 08/2018 COLONOSCOPY 2016 COLONOSCOPY 03/31/2022 Congestion mucosa recto-sigmoid and sigmoid. Repeat colonoscopy 2 years COLONOSCOPY W/ BIOPSIES 01/2020 Friend- due fall 2021 CYSTOSCOPY 01/13/2018 Normal LIPOMA RESECTION 12/2015 recurrence per Fior LIPOMA RESECTION 2014 right shoulder times 2 per Jeffrey RHINOPLASTY 2007 & sinoplasty TOTAL ABDOMINAL HYSTERECTOMY 2016 simple hyst with USO, fibroids Family History Problem Relation Name Age of Onset Diabetes Mother insulin Other (46872) Mother age 62 of complications of PUD - etohism Crohn's disease Mother Alcohol abuse Mother Osteoporosis Mother Atrial fibrillation Father Kumar Small CHF High Blood Pressure Father Kumar Small Colon cancer Father Kumar Small 80 age 87 Objective BP 120/83 (BP Location: Left arm, Patient Position: Sitting, BP Cuff Size: Large adult) Pulse 98 Temp 36.5 C (97.7 F) (Temporal) Ht 5' 6 (1.676 m) Wt 240 lb (109 kg) SpO2 99% BMI 38.74 kg/m Physical Exam Vitals reviewed. Constitutional: General: She is not in acute distress. Appearance: Normal appearance. She is not ill-appearing or toxic-appearing. HENT: Right Ear: Tympanic membrane and ear canal normal. Left Ear: Tympanic membrane and ear canal normal. Nose: Nose normal. No congestion. Mouth/Throat: Mouth: Mucous membranes are moist. Pharynx: No oropharyngeal exudate or posterior oropharyngeal erythema. Eyes: General: No scleral icterus. Extraocular Movements: Extraocular movements intact. Conjunctiva/sclera: Conjunctivae normal. Pupils: Pupils are equal, round, and reactive to light. Neck: Vascular: No carotid bruit. Cardiovascular: Rate and Rhythm: Normal rate and regular rhythm. Heart sounds: Normal heart sounds. No murmur heard. Pulmonary: Effort: Pulmonary effort is normal. No respiratory distress. Breath sounds: Normal breath sounds. No stridor. No wheezing or rales. Abdominal: General: Bowel sounds are normal. There is no distension. Palpations: Abdomen is soft. There is no mass. Tenderness: There is no abdominal tenderness. There is no guarding. Musculoskeletal: Cervical back: Normal range of motion and neck supple. No rigidity or tenderness. Right lower leg: No edema. Left lower leg: No edema. Lymphadenopathy: Cervical: No cervical adenopathy. Skin: General: Skin is warm and dry. Coloration: Skin is not jaundiced or pale. Findings: No erythema. Neurological: Mental Status: She is alert. Psychiatric: Mood and Affect: Mood normal. Data Reviewed and Summarized Labs: Labs were all reviewed and should be scanned within the system under media file. Imaging/Testing: Bjorn Tejada PA-C 11/18/2022 Please note that portions of this note may have been completed with voice recognition software. Documentation reviewed prior to signing but minor errors in strip deburrer may have occurred. documented in this [place] [id number] Telephone encounter Note* Telephone Encounter - Monserrat Martines RN - 11/11/2022 4:05 PM EDT [id number] Miscellaneous Notes* Telephone Encounter - Monserrat Martines RN - 11/11/2022 4:05 PM EDT Duplicate chart documented in this [place] [address]-22-2023 Telephone encounter Note* Telephone Encounter - Monserrat Martines RN - 11/11/2022 4:00 PM EDT S: Patient spoke with CAC nurse regarding Pt needs a work physical. B: Onset of symptoms/concern today. A: Pt reports needs a physical for work. R: Pt scheduled with Khushi Tejada for 11/18 per pt's request, Insurance verified and pt advised to arrive 15 min early and to bring insurance card/photo ID and any current meds. Patient understands care advice. No further needs at this time. Reason for Disposition Information only question and nurse able to answer Protocols used: Information Only Call - No [id number] [id number] Miscellaneous Notes* Telephone Encounter - Monserrat Martines RN - 11/11/2022 4:00 PM EDT S: Patient spoke with CAC nurse regarding Pt needs a work physical. B: Onset of symptoms/concern today. A: Pt reports needs a physical for work. R: Pt scheduled with Khushi Tejada for 11/18 per pt's request, Insurance verified and pt advised to arrive 15 min early and to bring insurance card/photo ID and any current meds. Patient understands care advice. No further needs at this time. Reason for Disposition Information only question and nurse able to answer Protocols used: Information Only Call - No [id number] documented in this [facility]12-29-2022 Telephone encounter Note* Telephone Encounter - Jigna Main - 03/20/2022 12:43 PM EST Name of caller: Jen Contact phone number: [phone] Relationship to Patient: patient Provider: Dr. Guerrero Practice: [facility] Chief Complaint/Reason for Call: Pt called into the office stated she called last week to have a prototype engineer manager return her call; however, there is not TE in the chart. I called the back office line and Tash at the office was able to take the call and the pt was soft transferred. Thank you Best time of day caller can be reached: any Patient advised that office/PCP has 24-48 business hours to return their call: No [id number] Miscellaneous Notes* Telephone Encounter - Jigna Main - 03/20/2022 12:43 PM EST Name of caller: Jen Contact phone number: [phone] Relationship to Patient: patient Provider: Dr. Guerrero Practice: [facility] Chief Complaint/Reason for Call: Pt called into the office stated she called last week to have a prototype engineer manager return her call; however, there is not TE in the chart. I called the back office line and Tash at the office was able to take the call and the pt was soft transferred. Thank you Best time of day caller can be reached: any Patient advised that office/PCP has 24-48 business hours to return their call: No documented in this [facility]10-20-2021 NoteHNO ID: [id number] Author: Alonso Arguelles MD Service: ? Author Type: Physician Type: Progress Notes Filed: 01/09/2021 8:46 AM Note Text: Referring Physician: SELF CC: possible neuropathy HPI: Jen Holder is a 55 year-old right-handed woman who comes to clinic today regarding possible neuropathy. She reports in about 2018 she noted some loss of sensation, stinging, burning and pins and needles in both feet, mostly in toes. This got more intense over time and socks were hard to wear. She had no specific gait problems or weakness. No symptoms above the ankles. 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 She reports that she recently was advised by GI locally that sulfasalazine (started 2019 but on other similar medication) may have altered folate levels causing neuropathy. She started a folate 2mg supplement 2 weeks ago and this seems to have improved her symptoms. She will decrease to 1mg this week. Prior Studies: Labs: normal: TSH, T3, T4, HbA1c 5.4, B12 641, Vit D abnormal: none ROS: CONSTITUTIONAL: No reported fevers, chills, night sweats, or significant unintentional weight loss. EYES: No visual changes indicated. No eye pain or orbital swelling reported. HEENT: No hearing changes or vertiginous symptoms indicated. No history of nose bleeds reported. RESPIRATORY: No reported cough, sputum, wheezing . Chronic dyspnea related to vocal cord dyskinesia. . CARDIOVASCULAR: Negative for significant chest pain, and palpitations per report. GI: Negative for significant abdominal discomfort, blood in stools or black stools reported. No recent reported change in bowel habits. : No reported history of incontinence. No dark/cola colored urine reported. MUSCLOSKELETAL: No history of significant joint pain or swelling. Positive myalgias related to leg cramps which awaken her - better with K+ supplement. SKIN: Eczema at baseline. Usus triamcinolone. HEMATOLOGY/ONCOLOGY: Negative for reported prolonged bleeding, bruising easily, and swollen nodes. ENDOCRINE: Negative for reported significant cold or heat intolerance, no reported goitrous neck swelling. Positive for chronic polydipsia PSYCH: No reported depression or anxiety symptoms. NEURO: Per HPI above. Positive sleep disturbance - gets up every 3 hours to brush teeth due to dry mouth. Not relieved by Biotene. . PAST MEDICAL HISTORY Diagnosis Date - Asthma - Breathlessness on exertion - Eczema - Environmental allergies - History of Clostridioides difficile infection - Internal hemorrhoids without mention of complication - Multiple lipomas - Ulcerative colitis (HCC) recent flare up - Vocal cord dysfunction dyskinesia PAST SURGICAL HISTORY Procedure Laterality Date - COLONOS W/REM POLYP SNARE 12/27/2015 ?polyp transverse colon, random biopsies - COLONOSCOP W/ OR W/O [facility] SPEC 03/02/2012 Colonoscopy [facility] out pt repeat 2 years - COLONOSCOP W/ OR W/O [facility] SPEC 03/07/2014 Colonoscopy [facility] - COLONOSCOP W/ OR W/O [facility] SPEC 09/13/2018 Colonoscopy - EXCISION TUMOR SOFT TISSUE SHOULDER SUBQ 3+CM 03/20/2014 12cm - right shoulder - PAST SURGICAL HISTORY OF 2010 broken right ankle - PAST SURGICAL HISTORY OF 2002 sinus surgery - PAST SURGICAL HISTORY OF hysterectomy - PAST SURGICAL HISTORY OF cystoscopy FAMILY HISTORY Problem Relation Age of Onset - Diabetes Mother crohns disease/ulverative colitis - Alcohol/Drug Mother - Allergies Mother - Hypertension Mother - Pancreatitis Mother - Colon Cancer Father IBS - Allergies Father - Heart Father - Hypertension Father - Stroke Father - Alzheimer's Disease Maternal Grandfather - Asthma Son allergies/ eczema - Anesthesia Problems No Family History - Early No Family History Social History Tobacco Use - Smoking status: Former Smoker Types: Cigarettes Quit date: 1993 Years since quittin.8 - Smokeless tobacco: Never Used Substance Use Topics - Alcohol use: Not Currently - Drug use: Not Currently Physical Examination: BP 127/73 Pulse 94 Ht 167.6 cm (5' 6) Wt 93.9 kg (207 lb) LMP 01/10/2016 BMI 33.41 kg/m? General: NAD, well-appearing HEENT: NCAT Neck: supple, no lymphadenopathy, no thyromegaly, no carotid bruits bilaterally Heart: RRR S1S2 Lungs: CTA Bilat, good effort Abd: soft, NT, ND, +BS Vascular: 2+ radial and DP pulses, no peripheral edema Musculoskeletal: joints NT, nl ROM, no paraspinal tenderness Neurologic examination: MS: alert and responsive, language intact CN: PERRLA, EOMI, VFF, V1-V3 intact bilaterally, face symmetrical, hearing grossly intact bilaterally, palatal elevation and tongue protrusion midline, no dysarthria, bilateral neck rotation 5/5, shoulder shrug 5/5 Motor: 5/5 neck flexion and extension, 4/5 B toe flexion, otherwise 5/5 throughout all extremity muscle (more content not included)...[facility]04-02-2021 NoteHNO ID: [id number] Author: Zhen Bains Service: ? Author Type: Physician Type: Progress Notes Filed: 06/22/2020 3:24 PM Note Text: FOLLOW-UP HISTORY: Follow up with left sided UC. She has been off Rowasa and steroids for months. She continues on AZA 1 gram TID. She feels great with no symptoms. She finished hep A/B vaccines. She got her COVID vaccines She needs shingles vaccine. She will check with her PCP. She takes Ca and Vit D. CURRENT OUTPATIENT MEDICATIONS mesalamine (ROWASA) 4 gram/60 mL enema 60 mL by RECTAL route at bedtime as needed. sulfaSALAzine (AZULFIDINE) 500 mg tablet Take 2 tablets by mouth three times daily. predniSONE (DELTASONE) 10 mg tablet Take 1 tablet by mouth once daily. triamcinolone acetonide (KENALOG) 0.5 % cream Apply to affected area three times daily as needed. calcium carbonate (CALCIUM 500 ORAL) Take by mouth once daily. Lactobacillus acidophilus (PROBIOTIC ORAL) Take by mouth once daily. POTASSIUM-99 ORAL Take by mouth once daily. ferrous sulfate (IRON ORAL) Take 28 mg by mouth once daily. COMPOUNDED PRESCRIPTION sulfurzyme 1.8g daily MULTI-VITAMIN ORAL Take by mouth once daily. ALLERGIES: Latex, Natural Rubber and Percocet [Oxycodone-Acetaminophen] PHYSICAL EXAMINATION: Ht 167.6 cm (5' 6) Wt 106 kg (233 lb 9.6 oz) LMP 01/10/2016 BMI 37.70 kg/m? General Appearance: alert, oriented x 3, pleasant and in no acute distress Oropharynx:Lips, tongue, and oral mucosa normal. There is no thrush or oral ulcers.. Lungs: breath sounds clear to auscultation bilaterally, no crackles, rhonchi, or wheezes Heart: regular rate and rhythm, no murmurs or gallops Abdomen: not distended, normal bowel sounds, soft and depressible, no guarding or rebound, no palpable mass, no organomegaly Extremities: no cyanosis or edema Skin: no jaundice, no spider angiomas, no palmar erythema Lymph: No cervical, axillary, supraclavicular, or inguinal adenopathy. IMPRESSION: 1. Left sided UC PLAN: 1. Shingles vaccine when she can 2. CBC, CMP, CRP, Vit D 3. Continue AZA as is 4. Follow up in 6 months. 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 Reason for Visit Fatty liver Obesity Ulcerative colitis [facility] Work Phone: Chief complaint+Reason for visit Narrative* Chief Complaint COVID-19 RIGHT EYE IRRITATION TWISTED R KNEE RIGHT KNEE Reason for Visit Blepharitis of right lower eyelid Conjunctivitis, right eye COVID-19 long hauler manifesting chronic cough Strain of right knee Internal derangement of right knee Right knee injury [facility] Work Phone: Chief complaint+Reason for visit Narrative* Chief Complaint COVID-19 RIGHT EYE IRRITATION TWISTED R KNEE RIGHT KNEE RIGHT KNEE PAIN RIGHT KNEE Reason for Visit Blepharitis of right lower eyelid Conjunctivitis, right eye COVID-19 long hauler manifesting chronic cough Strain of right knee Internal derangement of right knee Right knee injury MCL sprain of right knee Obesity, Class II, BMI 35-39.9 Right knee pain Osteoarthritis of right knee [facility] Work Phone: Discharge summary Author Marisa Palm [facility] January 23, 2023 8:50am Note Date/Time January 23, 2023 8 :29am [facility] Medical Records Department [address] [place] [address] Instructions for Home/Discharge Instructions 01/23/23 0827 MR#: [id number] Acct: [id number] Name: JEN HOLDER Rep #:[id number] : 1965 57 From: Marisa Palm MD PCP: Dr. Bhavesh Guerrero, DO Status:REG SDC Discharge Instructions Diet Discharge Diet: Light diet - advance as tolerated Activity Discharge Activity: May Not Drive (while taking narcotic pain medications.) May shower in (days): 1 Lifting Restrictions: No strenuous lifting Dressing / Incision Call your doctor if your incision/area has: Continuous Slow Oozing, Sudden Increased Bleeding, Increased Pain/ Swelling, Increased Redness, Foul Smelling Discharge and Swelling at the incision site Call your doctor if you observe: Fever of 101 or Higher Remove Dressing in: 2 days Cleanse incision/area with: Soap & Water Additional Dressing/Incision Instructions:: Steri-Strips will fall off in 7 to 10 days, if they do not fall off okay to remove after 10 days. Try to keep a pressure dressing on to help prevent/limit seroma for about 3 days if possible. Follow Up Care Please Follow Up With: Marisa Palm MD When: Call the office for a follow-up appointment 2 weeks; after 5 PM and on call [phone] with any concerns. Test Results: Test results from this visit will be discussed in further detail at your follow- up appointment, if applicable. Discharge Plan Admission Attending Provider: Marisa Palm Primary Care Provider: Bhavesh Guerrero Discharge Orders/Prescriptions Prescriptions: New hydrocodone-acetaminophen 5-325 mg tablet 1 tab PO Q6H PRN (Reason: pain) 3 Days Qty: 5 0RF Continued VSL#3 112.5 billion cell capsule 1 cap PO DAILY Qty: 30 2RF esomeprazole magnesium 20 mg capsule,delayed release(DR/EC) 20 mg PO DAILY Patient Comments: TAKE 1 CAPSULE BY MOUTHTEVERY MORNING BEFORE BREAKFAST. DO NOT OPEN CAPSULE iron, carbonyl 45 MG capsule 65 mg PO DAILYCM multivitamin with folic acid 1 TABLET tablet 1 tab PO DAILY potassium 99 MG tablet 550 mg PO DAILY calcium carbonate 500 MG tablet 500 mg PO DAILY cyanocobalamin-liver extract Tablet 1 tab PO DAILY sulfasalazine 500 mg tablet 500 mg PO TID folic acid 1 mg tablet 1 mg PO DAILY triamcinolone acetonide 0.5 % cream 1 applic TOPICAL PRN PRN (Reason: EXCEMA) Patient Comments: APPLY TO AFFECTED AREA OFHANDS 2 TIMES A DAY Referrals / Follow Up: Bhavesh Guerrero DO [Primary Care Provider] - Disposition Disposition (needs filled in before D/C Order can be placed): Home, Self Care 01/23/23 0850<Electronically signed by Marisa Palm MD>Marisa Palm MD CC: Dr. Bhavesh Guerrero DO ~ Signed [facility] Work Phone: Evaluation note* Diagnosis Onset Date Resolution Status Fatty liver chronic Obesity chronic Ulcerative colitis chronic [facility] Work Phone: Evaluation note* Diagnosis Onset Date Resolution Status Blepharitis of right lower eyelid acute Conjunctivitis, right eye ac cecilia COVID-19 long hauler manifesting chronic cough acute Strain of right knee acute Internal derangement of right knee acute Right knee injury acute [facility] Work Phone: Evaluation note* Diagnosis Onset Date Resolution Status Blepharitis of right lower eyelid acute Conjunctivitis, right eye ac cecilia COVID-19 long hauler manifesting chronic cough acute Strain of right knee acute Internal derangement of right knee acute Right knee injury acute MCL sprain of right knee non eactive Obesity, Class II, BMI 35-39.9 noneactive Right knee pain noneactive Osteoarthritis of right knee noneactive [facility] Work Phone: Evaluation note* Diagnosis Eczema, unspecified type GERD without esophagitis Esophageal reflux documented in [facility]* Diagnosis Onset Date Resolution Status Lipoma of back acute [facility] Work Phone: Evaluation note* Diagnosis Chronic left shoulder pain- Primary Pain in joint, shoulder region Obesity (BMI 30-39.9) [facility]* Diagnosis Chronic left shoulder pain- Primary Pain in joint, shoulder region Obesity (BMI 30-39.9) documented in this encounter [facility]* Diagnosis COVID-19- Primary Ulcerative colitis without complications, unspecified location (HCC) documented in this encounter [facility]* Diagnosis Hypersomnolence- Primary Hypersomnia, unspecified Dyspnea, unspecified type Hyperuricemia Other abnormal blood chemistry Urinary frequency Insomnia, unspecified type Eczema, unspecified type Obesity (BMI 35.0-39.9 without comorbidity) documented in this encounter [facility]* Diagnosis Acute cough- Primary Encounter for screening mammogram for malignant neoplasm of breast GERD without esophagitis Esophageal reflux Nontraumatic incomplete tear of left rotator cuff Hypersomnolence- Primary Hypersomnia, unspecified Dyspnea, unspecified type Hyperuricemia Other abnormal blood chemistry Urinary frequency Insomnia, unspecified type Eczema, unspecified type Obesity (BMI 35.0-39.9 without comorbidity) Epigastric pain- Primary Abdominal pain, epigastric Periumbilical pain Abdominal pain, periumbilic documented in this encounter [facility]* Diagnosis Acute cough- Primary Encounter for screening mammogram for malignant neoplasm of breast GERD without esophagitis Esophageal reflux Nontraumatic incomplete tear of left rotator cuff Hypersomnolence- Primary Hypersomnia, unspecified Dyspnea, unspecified type Hyperuricemia Other abnormal blood chemistry Urinary frequency Insomnia, unspecified type Eczema, unspecified type Obesity (BMI 35.0-39.9 without comorbidity) [facility] Diagnosis Acute cough- Primary Encounter for screening mammogram for malignant neoplasm of breast GERD without esophagitis Esophageal reflux Nontraumatic incomplete tear of left rotator cuff Hypersomnolence- Primary Hypersomnia, unspecified Dyspnea, unspecified type Hyperuricemia Other abnormal blood chemistry Urinary frequency Insomnia, unspecified type Eczema, unspecified type Obesity (BMI 35.0-39.9 without comorbidity) Abnormal EKG- Primary Nonspecific abnormal electrocardiogram (ECG) (EKG) Chest pain, unspecified type Elevated blood pressure reading in office without diagnosis of hypertension Primary insomnia Persistent disorder of initiating or maintaining sleep documented [facility]* Diagnosis Acute cough- Primary Encounter for screening mammogram for malignant neoplasm of breast GERD without esophagitis Esophageal reflux Nontraumatic incomplete tear of left rotator cuff Hypersomnolence- Primary Hypersomnia, unspecified Dyspnea, unspecified type Hyperuricemia Other abnormal blood chemistry Urinary frequency Insomnia, unspecified type Eczema, unspecified type Obesity (BMI 35.0-39.9 without comorbidity) Abnormal EKG- Primary Nonspecific abnormal electrocardiogram (ECG) (EKG) Chest pain, unspecified type Elevated blood pressure reading in office without diagnosis of hypertension Primary insomnia Persistent disorder of initiating or maintaining sleep Insomnia, unspecified type [facility] Vocal cord dysfunction Other diseases of vocal cords [facility] Acute cough- Primary Encounter for screening mammogram for malignant neoplasm of breast GERD without esophagitis Esophageal reflux Nontraumatic incomplete tear of left rotator cuff Hypersomnolence- Primary Hypersomnia, unspecified Dyspnea, unspecified type Hyperuricemia Other abnormal blood chemistry Urinary frequency Insomnia, unspecified type Eczema, unspecified type Obesity (BMI 35.0-39.9 without comorbidity) Hyperuricemia- Primary Other abnormal blood chemistry Ulcerative colitis without complications, unspecified location (HCC) Renal stones Chronic gout of foot, unspecified cause, unspecified laterality KAYLA on CPAP Labile essential hypertension documented [facility]* Diagnosis Acute cough- Primary Encounter for screening mammogram for malignant neoplasm of breast GERD without esophagitis Esophageal reflux Nontraumatic incomplete tear of left rotator cuff Hypersomnolence- Primary Hypersomnia, unspecified Dyspnea, unspecified type Hyperuricemia Other abnormal blood chemistry Urinary frequency Insomnia, unspecified type Eczema, unspecified type Obesity (BMI 35.0-39.9 without comorbidity) Chest pain, unspecified type- Primary Hyperglycemia Other abnormal glucose documented in [facility]* Diagnosis Acute cough- Primary Encounter for screening mammogram for malignant neoplasm of breast GERD without esophagitis Esophageal reflux Nontraumatic incomplete tear of left rotator cuff Hypersomnolence- Primary Hypersomnia, unspecified Dyspnea, unspecified type Hyperuricemia Other abnormal blood chemistry Urinary frequency Insomnia, unspecified type Eczema, unspecified type Obesity (BMI 35.0-39.9 without comorbidity) Epigastric pain- Primary Abdominal pain, epigastric Hyperglycemia Other abnormal glucose Chest pain, unspecified type History of gallstones Personal history of other diseases of digestive disease documented [facility]* Diagnosis Vocal cord dysfunction- Primary Other diseases of vocal cords [facility] Diagnosis Acute cough- Primary Encounter for screening mammogram for malignant neoplasm of breast GERD without esophagitis Esophageal reflux Nontraumatic incomplete tear of left rotator cuff Hypersomnolence- Primary Hypersomnia, unspecified Dyspnea, unspecified type Hyperuricemia Other abnormal blood chemistry Urinary frequency Insomnia, unspecified type Eczema, unspecified type Obesity (BMI 35.0-39.9 without comorbidity) Type 2 diabetes mellitus without complication, without long-term current use of insulin (HCC)- Primary documented in this encounter [facility] note* Diagnosis Acute cough- Primary Encounter for screening mammogram for malignant neoplasm of breast GERD without esophagitis Esophageal reflux Nontraumatic incomplete tear of left rotator cuff Hypersomnolence- Primary Hypersomnia, unspecified Dyspnea, unspecified type Hyperuricemia Other abnormal blood chemistry Urinary frequency Insomnia, unspecified type Eczema, unspecified type Obesity (BMI 35.0-39.9 without comorbidity) Type 2 diabetes mellitus without complication, without long-term current use of insulin (HCC)- Primary [facility] ([facility]ative[facility]No reason for referral information [facility]Bl[facility] Work Phone: Reason for visit Narrative* Speech Therapy (Routine) - Authorized Specialty Diagnoses / Procedures Referred By Contac t Referred To Contact Speech Pathology / Speech Therapy Diagnoses Collins Deleon MD Procedures VOCAL CORD DYSFUNCTION Collins Deleon MD [address] [facility] [address] [place] [address] Phone: tel: fax: Dottie Escudero, [facility] [address] [place] [address] Phone: tel: fax: Referral ID Status Reason Start Date Expiration Date V isits Requested Visits Authorized [id number] Authorized 07/21/2024 03/22/2025 50 50 [facility] Summary Purpose Family History Relationship Condition Age at Onset Recorded Date/T camron Not Specified Diabetes mellitus Unknown Colitis Unknown Hypertension Unknown Ulcerative colitis Unknown Relationship Condition Age at Onset Recorded Date/T camron Not Specified Colitis Unknown Ulcerative colitis Unknown mother Diabetes mellitus Unknown Disorder of thyroid Unknown father Malignant neoplasm of colon Unknown Cardiac disease Unknown Hypertension Unknown Cerebrovascular accident (CVA) Unknown Relationship Condition Age at Onset Recorded Date/T camron Not Specified Colitis Unknown Ulcerative colitis Unknown mother Diabetes mellitus Unknown Disorder of thyroid Unknown father Malignant neoplasm of colon Unknown Cardiac disease Unknown Hypertension Unknown Cerebrovascular accident (CVA) Unknown Atrial fibrillation Unknown Advance Directives Advance Directive Response Recorded Date/ Time Advance Directives No February 9:57am Living Will No March 27 3 3:56pm Power of Family Nurse Practitioner No March 27, 2 023 3:56pm Advance Directive Response Recorded Date/ Time Advance Directives No February 10:57am Living Will No March 27 3 4:56pm Power of Family Nurse Practitioner No March 27, 2 023 4:56pm Advance Directive Response Recorded Date/ Time Advance Directives No July 30 10:52am Living Will No January 12 3:49pm Power of Family Nurse Practitioner No January 12, 2023 3:49pm Advance Directive Response Recorded Date/ Time Advance Directives No July 30 10:52am Chief Complaint and Reason for Visit Chief Complaint [employer]NU[employer]OY[employer] S[employer] ENING Lipoma middle of back Excision, Lipoma Excision, Lipoma Reason for Visit Lipoma of back Chief Complaint Admit Date UMBILICAL HERNIA DOS 03/25April 25, 2 025 2:55pm ABNORMAL EKG April 28, 2024 1 :42pm ABNORMAL EKG April 28, 2024 5 :07pm KAYLA April 29, 2024 8 :07pm ABN EKG (SELF) May 04, 2024 2:56pm CHEST PAIN, HX OF GALLSTONES August 12, 2 025 6:28am Reason for Visit Admit Date S/P umbilical hernia repair, follow-up e xam April 25, 2024 2:55pm Abnormal EKG May 04, 2024 2:56pm Chief Complaint Admit Date UMBILICAL HERNIA DOS 03/25April 25, 2 025 2:55pm ABNORMAL EKG April 28, 2024 1 :42pm ABNORMAL EKG April 28, 2024 5 :07pm KAYLA April 29, 2024 8 :07pm ABN EKG (SELF) May 04, 2024 2:56pm CHEST PAIN, HX OF GALLSTONES August 12, 2 025 6:28am GALLBLADDER August 22, 2024 2:56p m Chief Complaint Admit Date ABNORMAL EKG April 28, 2024 1 :42pm ABNORMAL EKG April 28, 2024 5 :07pm KAYLA April 29, 2024 8 :07pm ABN EKG (SELF) May 04, 2024 2:56pm CHEST PAIN, HX OF GALLSTONES August 12 6:28am GALLBLADDER August 22, 2024 2:56p m Reason for Visit Admit Date Abnormal EKG May 04, 2024 2:56pm Reason for Referral Specialty Diagnoses / Procedures Referred By Contac t Referred To Contact Diagnoses Obesity (BMI 30-39.9) Bjorn Tejada PA-C [address] [place] [address] Referral ID Status Reason Start Date Expiration Date Visits Re quested Visits Authorized [id number] Closed 1 1 Specialty Diagnoses / Procedures Referred By Contac t Referred To Contact Radiology Diagnoses Chronic left shoulder pain Procedures MR shoulder left wo IV contrast Bjorn Tejada PA-C [address] [place] [address] Referral ID Status Reason Start Date Expiration Date V isits Requested Visits Authorized [id number] Pending Review 03/26/2023 03/25/2024 1 1 Specialty Diagnoses / Procedures Referred By Contac t Referred To Contact Sleep Medicine Diagnoses Hypersomnolence Dyspnea, unspecified type Procedures Sleep study with pap titration Bjorn Tejada PA-C [address] [place] [address] Referral ID Status Reason Start Date Expiration Date V isits Requested Visits Authorized [id number] Pending Review 01/05/2024 12/30/2024 1 1 Specialty Diagnoses / Procedures Referred By Contac t Referred To Contact Diagnoses Hypersomnolence Dyspnea, unspecified type Procedures Complete PFT pre and post bronchodilator Bjorn Tejada PA-C [address] [place] [address] Referral ID Status Reason Start Date Expiration Date V isits Requested Visits Authorized [id number] Pending Review 01/05/2024 12/30/2024 1 1 Additional Source Comments INFORMATION SOURCE (unrecogn ized section and content) DATE CREATED AUTHOR 02/15/2020 [facility] DATE CREATED AUTHOR AUTHOR'S ORGANIZ ATION 04/20/2021 [facility] DATE CREATED AUTHOR AUTHOR'S ORGANIZ ATION 08/20/2024 [facility] DATE CREATED AUTHOR AUTHOR'S ORGANIZ ATION 08/30/2024 [facility] DATE CREATED AUTHOR AUTHOR'S ORGANIZ ATION [facility]24/20[facility] Care Teams (unrecognized sec tion and content) Team Status: Active Member Role Status Dates Dr. Bhavesh Guerrero , DO Family Provider Active Dr. Bhavesh Guerrero , DO Primary Care Provider Active Team Status: Inactive Member Role Status Dates Dr. Bhavesh Guerrero , DO Primary Care Provider, Referrin g Provider Active Yevgeniy PUENTES PA Attending Provider Active Team Status: Active Member Role Status Dates Dr. Bhavesh Guerrero , DO Primary Care Provider, Referrin g Provider Active Dr. Christopher Ewing , DO Attending Provider, Other Prov ider Active Team Status: Inactive Member Role Status Dates Dr. Bhavesh Guerrero , DO Primary Care Provider, Referrin g Provider Active Spencer PUENTES PA Attending Provider Active Team Status: Inactive Member Role Status Dates Dr. Bhavesh Guerrero , DO Primary Care Provider, Referrin g Provider Active Dr. Christopher Ewing , DO Attending Provider Active Team Status: Inactive Member Role Status Dates Dr. Bhavesh Guerrero , DO Primary Care Provider Active Yevgeniy PUENTES PA Attending Provider Active Team Status: Inactive Member Role Status Dates Dr. Bhavesh Guerrero DO Primary Care Provider, Referrin g Provider Active Celeste PUENTES PA Attending Provider Active Team Status: Inactive Member Role Status Dates Dr. Bhavesh Guerrero , DO Primary Care Provider Active Spencer PUENTES PA Attending Provider Active Liquor Clerk Relationship Specialty Start Date End Date Bhavesh Guerrero DO [address] [place] [address] PCP - General 10/31/14 Liquor Clerk Relationship Specialty Start Date End Date Bhavesh Guerrero DO [address] [place], [place] [phone] PCP - General 10/31/14 Liquor Clerk Relationship Specialty Start Date End Date Rolando Ceballos DO [address] [place] [address] PCP - General Family Medicine 11/18/22 Liquor Clerk Relationship Specialty Start Date End Date Rolando Ceballos, [address] [place] [address] PCP - General Family Medicine 11/18/22 Liquor Clerk Relationship Specialty Start Date End Date Rolando Ceballos DO [address] [place], [place] [id number] PCP - General Family Medicine 11/18/22 Team Status: Inactive Member Role Status Dates Dr. Bhavesh Guerrero DO Primary Care Provider Active Dr. Marisa Palm MD Attending Provider Active Dr. Rolando Ceballos DO Referring Provider Active Team Status: Active Member Role Status Dates Dr. Bhavesh Guerrero DO Primary Care Provider Active Dr. Marisa Palm MD Attending Provi tien, Referring Provider, Other Provider Active Team Status: Inactive Member Role Status Dates Dr. Bhavesh Guerrero DO Primary Care Provider Active Dr. Marisa Palm MD Attending Provider, Referring Provider Active Team Status: Active Member Role Status Dates Dr. Bhavesh Guerrero DO Primary Care Provider Active Health Risk Assessment Attending Provider, Referring P zachery Active Liquor Clerk Relationship Specialty Start Date End Date Rolando Ceballos, DO [address] [place] [address] PCP - General Family Medicine 11/18/22 Liquor Clerk Relationship Specialty Start Date End Date Rolando Ceballos, DO [address] [place] [address] PCP - General Family Medicine 11/18/22 Liquor Clerk Relationship Specialty Start Date End Date Lin Rolando Wesley, DO [address] [place] [phone] PCP - General Family Medicine 11/18/22 Liquor Clerk Relationship Specialty Start Date End Date Lin Rolando Wesley, DO [address] [place] [phone] PCP - General Family Medicine 11/18/22 Liquor Clerk Relationship Specialty Start Date End Date Lin Rolando Wesley, DO [address] [place] [phone] PCP - General Family Medicine 11/18/22 Liquor Clerk Relationship Specialty Start Date End Date Lin Rolando Wesley, DO [address] [place] [phone] PCP - General Family Medicine 11/18/22 Liquor Clerk Relationship Specialty Start Date End Date Lin Rolando Wesley, DO [address] [place] [phone] PCP - General Family Medicine 11/18/22 Liquor Clerk Relationship Specialty Start Date End Date Lin Rolando Wesley, DO [address] [place] [address] PCP - General Family Medicine 11/18/22 Liquor Clerk Relationship Specialty Start Date End Date Lin Rolando Wesley, DO [address] [place] [phone] PCP - General Family Medicine 11/18/22 Liquor Clerk Relationship Specialty Start Date End Date Rolando Ceballos DO [address] [place] [phone] PCP - General Family Medicine 11/18/22 Liquor Clerk Relationship Specialty Start Date End Date Bhavesh Guerrero DO [address] [phone] PCP - General 10/31/14 Liquor Clerk Relationship Specialty Start Date End Date Rolando Ceballos DO [address] [place] [phone] PCP - General Family Medicine 11/18/22 Liquor Clerk Relationship Specialty Start Date End Date Rolando Ceballos DO [address] [place] [phone] PCP - General Family Medicine 11/18/22 Liquor Clerk Relationship Specialty Start Date End Date Rolando Ceballos DO [address] [place] [phone] PCP - General Family Medicine 11/18/22 Liquor Clerk Relationship Specialty Start Date End Date Rolando Ceballos DO [address] [place] [phone] PCP - General Family Medicine 11/18/22 Liquor Clerk Relationship Specialty Start Date End Date Rolando Ceballos DO [address] [place] [address] PCP - General Family Medicine 07/25/24 Liquor Clerk Relationship Specialty Start Date End Date Rolando Ceballos DO [address] [place] [address] PCP - General Family Medicine 11/18/22 Liquor Clerk Relationship Specialty Start Date End Date Rolando Ceballos DO [address] [place] [address] PCP - General Family Medicine 11/18/22 Liquor Clerk Relationship Specialty Start Date End Date Rolando Ceballos DO [address] [place] [address] PCP - General Family Medicine 11/18/22 Liquor Clerk Relationship Specialty Start Date End Date Rolando Ceballos DO [address] [place] [address] PCP - General Family Medicine 11/18/22 Team Status: Active Member Role Status Dates Dr. Rolando Ceballos DO Primary Care Provider Active Team Status: Inactive Member Role Status Dates Dr. Rolando Ceballos DO Primary Care Provider Active Start: April 25, 2024 End: April 25, 2024 Dr. Rolando Ceballos DO Referring Provider Active Start: April 25, 2024 End: April 25, 2024 Dr. Marisa Palm MD Attending Provider Active Start: April 25, 2024 End: April 25, 2024 Team Status: Inactive Member Role Status Dates Dr. Rolando Ceballos DO Primary Care Provider Active Start: April 28, 2024 End: April 28, 2024 DHAVAL García Attending Provider Active Star t: April 28, 2024 End: April 28, 2024 DHAVAL García Referring Provider Active Star t: April 28, 2024 End: April 28, 2024 Team Status: Active Member Role Status Dates Dr. Rolando Ceballos DO Primary Care Provider Active Start: April 28, 2024 DHAVAL García Referring Provider Active Star t: April 28, 2024 DHAVAL García Other Provider Active Start: Lupillo marquez 2024 Dr. Cody Lee MD Attending Provider Active S tart: April 28, 2024 Team Status: Inactive Member Role Status Dates Dr. Rolando Ceballos DO Primary Care Provider Active Start: April 29, 2024 End: April 29, 2024 Dr. Collins Deleon MD Attending Provider Active Start: April 29, 2024 End: April 29, 2024 Dr. Collins Deleon MD Referring Provider Active Start: April 29, 2024 End: April 29, 2024 Team Status: Inactive Member Role Status Dates Dr. Rolando Ceballos DO Primary Care Provider Active Start: May 04, 2024 End: May 04, 2024 Dr. Rolando Ceballos DO Referring Provider Active Start: May 04, 2024 End: May 04, 2024 Dr. Cody Lee MD Attending Provider Active S tart: May 04, 2024 End: May 04, 2024 Team Status: Inactive Member Role Status Dates Dr. Rolando Ceballos DO Primary Care Provider Active Start: August 12, 2024 End: August 12, 2024 Dr. Rolando Ceballos DO Attending Provider Active Start: August 12, 2024 End: August 12, 2024 Dr. Rolando Ceballos DO Referring Provider Active Start: August 12, 2024 End: August 12, 2024 Liquor Clerk Relationship Specialty Start Date End Date Rolando Ceballos DO [address] [phone] PCP - General Family Medicine 07/25/24 Team Status: Active Member Role Status Dates Dr. Rolando Ceballos DO Primary Care Provider Active Start: August 20, 2024 Dr. Rolando Ceballos DO Attending Provider Active Start: August 20, 2024 Dr. Rolando Ceballos DO Referring Provider Active Start: August 20, 2024 Team Status: Active Member Role Status Dates Dr. Rolando Ceballos DO Primary Care Provider Active Start: August 22, 2024 Dr. Rolando Ceballos DO Attending Provider Active Start: August 22, 2024 Dr. Rolando Ceballos DO Referring Provider Active Start: August 22, 2024 Team Status: Inactive Member Role Status Dates Dr. Rolando Ceballos DO Primary Care Provider Active Start: August 22, 2024 End: August 22, 2024 Dr. Rolando Ceballos DO Referring Provider Active Start: August 22, 2024 End: August 22, 2024 Dr. Marisa Palm MD Attending Provider Active Start: August 22, 2024 End: August 22, 2024 Liquor Clerk Relationship Specialty Start Date End Date Rolando Ceballos DO [address] [place] [address] PCP - General Family Medicine 11/18/22 Liquor Clerk Relationship Specialty Start Date End Date Rolando Ceballos DO [address] [place] [address] PCP - General Family Medicine 11/18/22 Team Status: Inactive Member Role Status Dates Dr. Rolando Ceballos DO Primary Care Provider Active Start: August 20, 2024 End: August 20, 2024 Dr. Rolando Ceballos DO Attending Provider Active Start: August 20, 2024 End: August 20, 2024 Dr. Rolando Ceballos DO Referring Provider Active Start: August 20, 2024 End: August 20, 2024 Team Status: Inactive Member Role Status Dates Dr. Rolando Ceballos DO Primary Care Provider Active Start: August 22, 2024 End: August 22, 2024 Dr. Rolando Ceballos DO Attending Provider Active Start: August 22, 2024 End: August 22, 2024 Dr. Rolando Ceballos DO Referring Provider Active Start: August 22, 2024 End: August 22, 2024 Liquor Clerk Relationship Specialty Start Date End Date Rolando Ceballos DO [address] [place] [address] PCP - General Family Medicine 11/18/22 Liquor Clerk Relationship Specialty Start Date End Date Rolando Ceballos DO [address] [place] [address] PCP - General Family Medicine 11/18/22 Reason for Visit (unrecogniz ed section and content) Reason Onset Date Comments Appointment Request 11/11/2022 Reason Comments Employment Physical Reason Onset Date Comments Referral 12/16/2022 Reason Onset Date Comments Referral 12/10/2022 General surgeon Reason Comments got flu shot and pain in the injection s ite Got vaccine Thursday before thanksgiving Reason Onset Date Comments Error (VOID this visit) 04/03/2023 Reason Onset Date Comments Orders 04/03/2023 MRI Reason Onset Date Comments Covid-19 Testing 11/09/2023 Cough 11/09/2023 Reason Comments Annual Exam Flu Vaccine Patient has declined to receive influenza vaccine in the office. 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 Reason Onset Date Comments Medication Question 03/01/2024 Reason Comments Abnormal ECG Reason Onset Date Comments Test Scheduling 06/08/2024 Reason Onset Date Comments Med Refill 06/16/2024 Reason Comments Follow-up Med check Immunizations Pt declined Pneumoco ccal Vaccine Reason Comments Chest Pain Pt arrived from home with midsternal chest pain for the last hour. Pt with pain /10. Pt states she had an abnormal EKG a few months ago but it was cleared. Reason Onset Date Comments Results 08/23/2024 Reason Onset Date Comments Referral 09/27/2024 Dietitian at [facility] Scheduled Active and Recently Administ ered Medications (unrecognized section and content) Medication Order 08/05/2024 08/06/2024 08/07/2024 aspirin chewable tablet 324 mg (COMPLETED) 324 mg, Oral, Once, On 08/07/24 at 1745, For 1 dose 1800 (Given - Provid er: Gunner Hayes RN) Goals (unrecognized section and content) Goals may be documented in a n alternate sectionGoals may be documented in an alternate sectionGoals may be documented in an alternate sectionGoals may be documented in an alternate section FOR RECORDS PERTAINING TO PATIENTS WHO ARE OR HAVE BEEN ENROLLED IN A CHEMICAL DEPENDENCY/SUBSTANCEABUSE PROGRAM, SOME INFORMATION MAY BE OMITTED. This clinical summary was aggregated from multiple sources. Caution should be exercised in using it in the provision of clinical care. This summary normalizes information from multiple sources, and as a consequence, information in this document may materially change the coding, format and clinical context of patient data. In addition, data may be omitted in some cases. CLINICAL DECISIONS SHOULD BE BASED ON THE PRIMARY CLINICAL RECORDS. [employer] [facility]. provides no warranty or guarantee of the accuracy or completeness of information in this document.
[2024-09-30 07:36] LABS: Glucose 151 mg/dL (70-99)
== END | disposition home or self-care (01) ==
LOC: LAB 06:38
PROVIDERS: PCP Family Medicine; Referring Provider Family Medicine; Visit Provider Family Medicine
DX: R73.9 Hyperglycemia, unspecified (principal)
CPT/HCPCS: 36415; 82947; 83036

== ENCOUNTER 2024-10-03 05:47 | Day surgery (SDC) | payer OTHER, SELFPAY ==
--- NOTE | 2024-09-27 20:45 | PAT.ANE_ITS ---
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 When Was Last Pacemaker Check QUESTION #4 FULL TEXT: You/Your Family Experience fever (hyperthermia) with Anesthesia Last Oral Intake Last Oral intake: Last Oral Intake NPO since Meds taken in AM with sips of water? 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 Female Yes 09/27/24 08:42 HX of Motion Sickness Yes 09/27/24 08:42 HX of N/V After Surgery No 09/27/24 08:42 Non-Smoker Yes 09/27/24 08:42 Duration of Surgery greater Yes 09/27/24 08:42 than 60 minutes Number of Risk Factors 4 09/27/24 08:42 PONV Score Severe Risk 09/27/24 08:42 Height & Weight Height & Weight: Anesthesia: Height & Weight Height 5 ft 6 in 08/22/24 15:06 Respiratory Assessment Respiratory Assessment - instrument repair technician: Respiratory Tract Infection Hx - instrument repair technician Hx Respiratory Tract Infection No 09/27/24 08:42 STOP Sleep Apnea STOP Sleep Apnea - instrument repair technician: STOP Sleep Apnea - instrument repair technician Hx Hypertension No 09/27/24 08:42 Hx Sleep Apnea Yes 09/27/24 08:42 CPAP Yes 09/27/24 08:42 BIPAP No 09/27/24 08:42 Do you snore loudly (louder No 09/27/24 08:42 than talking or can be heard Do you often feel tired/ No 09/27/24 08:42 fatigued/ sleepy during daytime? Has anyone observed you stop No 09/27/24 08:42 breathing during sleep? STOP Results Positive 09/27/24 08:42 QUESTION #5 FULL TEXT : Do you snore loudly (louder than talking or can be heard through closed doors)? 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 Specify any problems Hx of Preganancy in last 3 No 09/27/24 08:42 Months Nurse Filling Out Transfusion [id number] 09/27/24 08:42 & Questions: Date: 09/27/24 09/27/24 08:42 Time: 08:45 09/27/24 08:42 Patient unable to answer at this time (ie. confused, unrespo /Reproduction History /Reproductive History - instrument repair technician: /Reproductive Hx- instrument repair technician Hx Now Gestational Age (in weeks): EDC: Hx Hx Para Hx Section SAB No 01/12/23 15:49 Active Medications Active Medications: Current Medications Generic Name Dose Route Start Last Admin Trade Name Freq PRN Reason Stop Dose Admin Indocyanine Green 3.75 mg/ N/A 1.5 mls @ 999 mls/hr 10/03/24 07:30 IV 10/03/24 07:31 PREOP [facility] Medical History (Updated 09/27/24 @ 08:50 by Santy Hassan) History of Clostridium difficile infection History of steroid therapy Vocal cord dysfunction History of echocardiogram Chest pain Cardiology follow-up encounter Insomnia Nonspecific chest pain Abnormal EKG Gout Low iron History of hiatal hernia BMI 38.0-38.9,adult Adrenal nodule GERD (gastroesophageal reflux disease) Umbilical hernia Left shoulder pain Lipoma of back COVID-19 long hauler manifesting chronic cough Conjunctivitis, right eye Blepharitis of right lower eyelid Anxiety Diabetes Fatty liver Back pain Injury of back Migraine headache Hx of ulcerative colitis Heartburn Shortness of breath on exertion Leg cramps Anemia Arthritis Home Medications ?Medication ?Instructions ?Recorded ?Last Taken ?Type multivitamin with folic acid 400 1 tab PO DAILY Unknown History mcg tablet calcium carbonate 500 mg PO DAILY 01/07/18 Unk nown History potassium 99 mg tablet 99 mg PO DAILY 01/07/18 Unkn own History Lactobac no.2-Bifidobac no.1-S. 1 cap PO DAILY #30 cap s 12/21/20 Unknown Rx thermo 112.5 billion cell capsule (VSL#3) folic acid 1 mg tablet 1 mg PO DAILY 03/27/22 Unkno wn History triamcinolone acetonide 0.5 % 1 applic topical PRN PRN EXCEMA 01/12/23 Unknown History topical cream omeprazole 40 mg capsule,delayed 40 mg PO QDAY #30 cap s 03/07/24 Unknown Rx release allopurinol 100 mg tablet 100 mg PO DAILY 03/18/24 Unk nown History trazodone 50 mg tablet 50 mg PO QHS 03/18/24 Unknow n History cholecalciferol (vitamin D3) 125 125 mcg PO QDAY 04/25 Unknown History mcg (5,000 unit) capsule glimepiride 1 mg tablet 1 mg PO DAILY 09/27/24 Unkno wn History Allergy/AdvReac Type Severity Reaction Status Date / Time latex Allergy Itching Verified 09/27/24 08:39 oxycodone (From Percocet) Allergy Itching Verified 09/27/24 08:39 Iodinated Contrast Media AdvReac NAUSEA,DIAP Verified 09/27/24 08:39 (Iodinated Contrast- Oral HORESIS and IV Dye) Sulfa (Sulfonamide AdvReac UNABLE TO Verified 09/27/24 08:39 Antibiotics) TAKE WITH CROHNS DISEASE Family History Mother Diabetes Thyroid disorder Father Colon cancer Heart disease Hypertension CVA (cerebral vascular accident) Afib Other Colitis Ulcerative colitis Surgical History S/P umbilical hernia repair, follow-up exam S/P excision of lipoma Hx of colonoscopy Hx of cystoscopy History of sinus surgery History of ankle surgery H/O: hysterectomy Social History Smoking Status: Former smoker alcohol intake: never Audit: Pertinent Findings Pertinent Findings EKG Perinent findings: 03/21/2024. Normal sinus rhythm. Cannot rule out anterior infarct, age undetermined. Echo (EF%) pertinent findings: April 15, 2024. EF of 65%. No aortic stenosis noted. Consult pertinent findings: 05/04/2024. Dr. Lee. 1. Abnormal EKG?acute-there was poor R wave progression on the EKG. But subsequent echo showed preserved ejection fraction. A CT angiogram was performed and demonstrated no obvious atherosclerotic intraluminal plaquing. No further workup. Recommendation Anesthesia Recommendation Anesthesia recommendation: OPTIMIZED for anesthesia
[2024-09-28 10:44] LABS: Hematocrit 39.9 % (37-47); Hemoglobin 12.9 g/dL (12.0-15.0); Immature Granulocytes Count 0.060 X10^3/uL (0.0-0.0); Mean Corp Hgb Conc 32.3 g/dL (32-36); Mean Corpuscular Volume 90.3 fL (81-99); Mean Platelet Vol. 11.4 fl (6.2-12.0); NRBC Flagged by Analyzer 0 % (0-5); Platelet Count 312 K/mm3 (150-450); RBC Distribution Width CV 13.0 % (11.6-14.6); RBC Distribution Width SD 42.7 fl (35.1-43.9); Red Blood Count 4.42 M/mm3 (4.2-5.4); White Blood Count 9.3 K/mm3 (4.4-11.0)
[2024-09-28 11:38] LABS: Anion Gap 14 (5-15); BUN 17 mg/dL (4-19); BUN/Creat Ratio 25.1 RATIO (10-20); Calcium,Total 9.4 mg/dL (7.6-11.0); Carbon Dioxide 21.0 mmol/L (21.0-32.0); Chloride 103 mmol/L (98-108); Glucose 132 mg/dL (70-99); Potassium 4.1 mmol/L (3.3-5.1)
[2024-09-28 12:46] LABS: AST(SGOT) 26 U/L (<=31); Alanine Aminotransfer ALT/SGPT 50 U/L (<=34); Albumin, Serum 4.0 g/dL (3.5-5.0); Alkaline Phosphatase 126 U/L (35-104); Bilirubin, Direct 0.22 mg/dL (0.00-0.30); Globulin 3.3 g/dL (2.2-4.2)
--- NOTE | 2024-09-30 14:09 | PAT.ANE_ITS ---
Pre-Assessment Diagnosis/Proposed Procedure Planned Operative Procedure(s): ROBOTIC CHOLECYSECTOMY Anesthesia History Anesthesia History - manager of administration: Anesthesia History - manager of administration Hx Hospitalization No 09/27/24 08:42 Any Problems With Anesthesia No 09/27/24 08:42 Cholinesterase deficiency No 09/27/24 08:42 You/Your Family Experience No 09/27/24 08:42 fever (hyperthermia) with Relationship Recent Exposure to Contagious No 03/25/24 10:27 Disease Does patient have nerve No 09/27/24 08:42 stimulator Patient instructed to have device shut off --Does patient have Pacemaker or ICD? When Was Last Pacemaker Check QUESTION #4 FULL TEXT: You/Your Family Experience fever (hyperthermia) with Anesthesia Last Oral Intake Last Oral intake: Last Oral Intake NPO since Meds taken in AM with sips of water? Meds patient instructed to take am of surgery PONV PONV - manager of administration: PONV - manager of administration Female Yes 09/27/24 08:42 HX of Motion Sickness Yes 09/27/24 08:42 HX of N/V After Surgery No 09/27/24 08:42 Non-Smoker Yes 09/27/24 08:42 Duration of Surgery greater Yes 09/27/24 08:42 than 60 minutes Number of Risk Factors 4 09/27/24 08:42 PONV Score Severe Risk 09/27/24 08:42 Height & Weight Height & Weight: Anesthesia: Height & Weight Height 5 ft 6 in 08/22/24 15:06 Respiratory Assessment Respiratory Assessment - manager of administration: Respiratory Tract Infection Hx - manager of administration Hx Respiratory Tract Infection No 09/27/24 08:42 STOP Sleep Apnea STOP Sleep Apnea - manager of administration: STOP Sleep Apnea - manager of administration Hx Hypertension No 09/27/24 08:42 Hx Sleep Apnea Yes 09/27/24 08:42 CPAP Yes 09/27/24 08:42 BIPAP No 09/27/24 08:42 Do you snore loudly (louder No 09/27/24 08:42 than talking or can be heard Do you often feel tired/ No 09/27/24 08:42 fatigued/ sleepy during daytime? Has anyone observed you stop No 09/27/24 08:42 breathing during sleep? STOP Results Positive 09/27/24 08:42 QUESTION #5 FULL TEXT : Do you snore loudly (louder than talking or can be heard through closed doors)? 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 Specify any problems Hx of Preganancy in last 3 No 09/27/24 08:42 Months Nurse Filling Out Transfusion [id number] 09/27/24 08:42 & Questions: Date: 09/27/24 09/27/24 08:42 Time: 08:45 09/27/24 08:42 Patient unable to answer at this time (ie. confused, unrespo /Reproduction History /Reproductive History - manager of administration: /Reproductive Hx- manager of administration Hx Now Gestational Age (in weeks): EDC: Hx Hx Para Hx Section SAB No 01/12/23 15:49 Active Medications Active Medications: Current Medications Generic Name Dose Route Start Last Admin Trade Name Freq PRN Reason Stop Dose Admin Indocyanine Green 3.75 mg/ N/A 1.5 mls @ 999 mls/hr 10/03/24 07:30 IV 10/03/24 07:31 PREOP ONE Cefazolin Sodium 2 gm/ Sodium 110 mls @ 200 mls/hr 10/03/24 07:30 Chloride IV 10/03/24 08:02 INTRAOP ONE [facility] Medical History (Updated 09/27/24 @ 08:50 by Santy Hassan) History of Clostridium difficile infection History of steroid therapy Vocal cord dysfunction History of echocardiogram Chest pain Cardiology follow-up encounter Insomnia Nonspecific chest pain Abnormal EKG Gout Low iron History of hiatal hernia BMI 38.0-38.9,adult Adrenal nodule GERD (gastroesophageal reflux disease) Umbilical hernia Left shoulder pain Lipoma of back COVID-19 long hauler manifesting chronic cough Conjunctivitis, right eye Blepharitis of right lower eyelid Anxiety Diabetes Fatty liver Back pain Injury of back Migraine headache Hx of ulcerative colitis Heartburn Shortness of breath on exertion Leg cramps Anemia Arthritis Home Medications ?Medication ?Instructions ?Recorded ?Last Taken ?Type multivitamin with folic acid 400 1 tab PO DAILY Unknown History mcg tablet calcium carbonate 500 mg PO DAILY 01/07/18 Unk nown History potassium 99 mg tablet 99 mg PO DAILY 01/07/18 Unkn own History Lactobac no.2-Bifidobac no.1-S. 1 cap PO DAILY #30 cap s 12/21/20 Unknown Rx thermo 112.5 billion cell capsule (VSL#3) folic acid 1 mg tablet 1 mg PO DAILY 03/27/22 Unkno wn History triamcinolone acetonide 0.5 % 1 applic topical PRN PRN EXCEMA 01/12/23 Unknown History topical cream omeprazole 40 mg capsule,delayed 40 mg PO QDAY #30 cap s 03/07/24 Unknown Rx release allopurinol 100 mg tablet 100 mg PO DAILY 03/18/24 Unk nown History trazodone 50 mg tablet 50 mg PO QHS 03/18/24 Unknow n History cholecalciferol (vitamin D3) 125 125 mcg PO QDAY 04/25 Unknown History mcg (5,000 unit) capsule glimepiride 1 mg tablet 1 mg PO DAILY 09/27/24 Unkno wn History Allergy/AdvReac Type Severity Reaction Status Date / Time latex Allergy Itching Verified 09/27/24 08:39 oxycodone (From Percocet) Allergy Itching Verified 09/27/24 08:39 Iodinated Contrast Media AdvReac NAUSEA,DIAP Verified 09/27/24 08:39 (Iodinated Contrast- Oral HORESIS and IV Dye) Sulfa (Sulfonamide AdvReac UNABLE TO Verified 09/27/24 08:39 Antibiotics) TAKE WITH CROHNS DISEASE Family History Mother Diabetes Thyroid disorder Father Colon cancer Heart disease Hypertension CVA (cerebral vascular accident) Afib Other Colitis Ulcerative colitis Surgical History S/P umbilical hernia repair, follow-up exam S/P excision of lipoma Hx of colonoscopy Hx of cystoscopy History of sinus surgery History of ankle surgery H/O: hysterectomy Social History Smoking Status: Former smoker alcohol intake: never Audit: Pertinent Findings HISTORY of Pertinent Findings History of Pertinent Findings: EKG Pertinent Findings EKG Perinent findings 03/21/2024. Normal sinus 09/27/24 20:48 rhythm. Cannot rule out anterior infarct, age undetermined. Echo Pertinent Findings Echo (EF%) pertinent findings April 15, 2024. EF of 65% 09/27/24 20:48 . No aortic stenosis noted. Consult Pertinent Findings Consult pertinent findings 05/04/2024. Dr. Lee. 1. 09/27/24 20:49 Abnormal EKG?acute-there was poor R wave progression on the EKG. But subsequent echo showed preserved ejection fraction. A CT angiogram was performed and demonstrated no obvious atherosclerotic intraluminal plaquing. No further workup. Pertinent Findings EKG Perinent findings: 09/30/2024. Normal sinus rhythm 77 bpm. Prolonged QT. QT interval 438 ms. Recommendation Anesthesia Recommendation Anesthesia recommendation: OPTIMIZED for anesthesia
[2024-10-03] VITALS (8 sets, daily range): BP systolic 141–163; BP diastolic 83–110; PULSE 85–90; RESP 16–17; TEMP 36.3–36.6; O2SAT 93–97; BMI 40.1
--- OUTSIDE RECORDS SUMMARY | 2024-10-03 05:51 | XMS RPT_ITS | CCD ---
Author Organization [facility] Care Team Providers Care Translator/Interpreter Name Role Phone Tiffany Steele LPN Unavailable Reggie Thorpe Unavailable Dr. hBavesh Guerrero Primary Care Provider Dr. Bhavesh Guerrero Referring Provider Dr. Christopher Ewing Attending Provider [phone] DHAVAL Aceves Attending Provider Dr. Christopher Ewing Other Provider Dr. Bhaevsh Guerrero Primary Care Provider Dr. Bhavesh Guerrero Referring Provider Dr. Christopher Ewing Attending Provider [phone] DHAVAL English Attending Provider [phone] Bhavesh Guerrero Primary Care Provider Dr. Bhavesh Guerrero Referring Provider DHAVAL Aceves Attending Provider Dr. Christopher Ewing Attending Provider [phone] Dr. Christopher Ewing Other Provider [phone] DHAVAL English Attending Provider DHAVAL Duckworth Attending Provider [phone] Bhavesh Guerrero DO Primary Care Provider Rolando Ceballos DO Primary Care Provider Dr. Bhavesh Guerrero Primary Care Provider Dr. Marisa Palm Attending Provider Dr. Rolando Ceballos Referring Provider Dr. Marisa Palm Referring Provider Dr. Marisa Palm Other Provider Lin MARTINS, Rolando F Primary Care Provider Bhavesh Guerrero DO Primary Care Provider Lin MARTINS, Rolando Wesley Primary Care Provider Unav ailable Lin MARTINS, Dr. Marshall Primary Care Provider Dr. Rolando Ceballos DO Referring Provider Dr. Marisa Paml MD Attending Provider Bjorn Bhakta Attending Provider Bjorn Bhakta Referring Provider Bjorn Bhakta Other Provider Dr. Cody Lee MD Attending Provider Dr. Collins Deleon MD, V Attending Provider [phone] Dr. Collins Deleon MD, V Referring Provider Dr. Rolando Ceballos DO Attending Provider COLLINS DELEON Referring Unavailable ROLANDO CEBALLOS Primary Care Unavailable ROLANDO CEBALLOS Attending Unavailable COLLINS DELEON Referring Unavailable ROLANDO CEBALLOS Primary Care Unavailable COLLINS DELEON Attending Unavailable Dr. Rolando Ceballos DO Primary Care Provider [phone] Dr. Rolando Ceballos DO Referring Provider Dr. Marisa Palm MD Attending Provider Rolando Ceballos Primary Care Unavailable Assessment, Health Risk Referring Unavaila ble Assessment, Health Risk Attending Unavaila ble Marisa Palm Attending Unavailable Marisa Palm Consulting Unavailable Marisa Palm Referring Unavailable Rolando Ceballos Primary Care Unavailable Marisa Palm Attending Unavailable Rolando Ceballos Referring Unavailable Rolando Ceballos Primary Care Unavailable Robotham, Marisa Attending Unavailable Robotham, Marisa Referring Unavailable Petrilla, Rolando Primary Care Unavailable Petrilla, Rolando Attending Unavailable Petrilla, Rolando Primary Care Unavailable Petrilla, Rolando Referring Unavailable Robotham, Marisa Referring Unavailable Robotham, Marisa Attending Unavailable Petrilla, Rolando Primary Care Unavailable Petrilla, Rolando Attending Unavailable Petrilla, Rolando Primary Care Unavailable Petrilla, Rolando Referring Unavailable TejadaBjorn taylor Attending Unavailable Petrilla, Rolando Primary Care Unavailable TejadaBjorn taylor Referring Unavailable Robotham, Marisa Attending Unavailable Petrilla, Rolando Primary Care Unavailable Petrilla, Rolando Referring Unavailable Tejada, Bjorn Attending Unavailable Bjorn Tejada Referring Unavailable Petrilla, Rolando Primary Care Unavailable Robotham, Marisa Attending Unavailable Petrilla, Rolando Referring Unavailable Petrilla, Rolando Primary Care Unavailable Petrilla, Rolando Primary Care Unavailable Petrilla, Rolando Referring Unavailable RosaCody Attending Unavailable Robotham, Marisa Attending Unavailable Petrilla, Rolando Primary Care Unavailable Petrilla, Rolando Referring Unavailable Petrilla, Rolando Primary Care Unavailable Cody Lee Attending Unavailable Robotham, Marisa Referring Unavailable Petrilla, Rolando Primary Care Unavailable Cody Lee Attending Unavailable Bjorn Tejada Consulting Unavailable Petrilla, Rolando Primary Care Unavailable Cody Lee Attending Unavailable Bjorn Tejada Referring Unavailable TejadaBjorn taylor Attending Unavailable Petrilla, Rolando Primary Care Unavailable Bjorn Tejada Referring Unavailable Petrilla, Rolando Primary Care Unavailable Tejada, Bjorn Referring Unavailable Bjorn Tejada Attending Unavailable Luis AngeliliaCollins V Referring Unavailable SibiliaCollins V Attending Unavailable Petrilla, Rolando Primary Care Unavailable Petrilla, Rolando Attending Unavailable Petrilla, Rolando Primary Care Unavailable Petrilla, Rolando Referring Unavailable Petrilla, Rolando Attending Unavailable Petrilla, Rolando Primary Care Unavailable Petrilla, Rolando Referring Unavailable Petrilla, Rolando Primary Care Unavailable Sibilia, Collins V Attending Unavailable Sibilia, Collins V Referring Unavailable PETRILLA, ROLANDO Primary Care Unavailable PETRILLA, ROLANDO Primary Care Unavailable PETRILLA, ROLANDO Attending Unavailable PETRILLA, ROLANDO Primary Care Unavailable BJORN TEJADA Attending Unavailable LORA ALBERTO Referring Unavailable PETRILLA, ROLANDO Primary Care Unavailable PETRILLA, ROLANDO Primary Care Unavailable BJORN TEJADA Attending Unavailable PETRILLA, ROLANDO Primary Care Unavailable TEJADABJORN Taylor Attending Unavailable PETRILLA, ROLANDO Attending Unavailable PETRILLA, ROLANDO Primary Care Unavailable Allergies Allergy Classification Reported Allergen(s) Allergy Type Date of Onset Reaction(s) Facility (2 sources) acetaminophen / oxyCODONE drug allergy 03-07-20 16 [facility] Work Phone: (2 sources) Latex rubber gloves drug allergy 03-07-20 16 [facility] Work Phone: (4 sources) Acetaminophen Drug Allergy 03-31-19 23 Itching [facility] (8 sources) Latex Allergy to substance 03-31-19 23 Itching [facility] (20 sources) oxyCODONE Drug Allergy 03-31-19 23 Itching [facility] (8 sources) Sulfonamides (Antibiotic) Propensity to adverse reactions 03-31-19 23 UNABLE TO TAKE WITH CROHNS DISEASE [facility] (8 sources) Triiodobenzoic Acids Propensity to adverse reactions 03-31-19 23 NAUSEA,DIAPHOR ESIS [facility] (20 sources) Gadolinium Drug Allergy 07-09-19 23 Dizziness [facility] (20 sources) Latex Propensity to adverse reactions 07-09-19 23 Itching [facility] (20 sources) Sulfonamides (Antibiotic) Drug Intolerance 07-09-19 23 Nausea Only [facility] (19 sources) Acetaminophen Drug Allergy 07-31-19 23 [facility] (1 source) Acetaminophen Drug Allergy 03-07-20 24 [facility]ository (1 source) Latex Drug allergy (disorder) 09-28-19 [facility] (1 source) oxyCODONE Drug Allergy 09-28-19 25 [facility] (1 source) Sulfonamides (Antibiotic) Drug allergy (disorder) 09-28-19 25 [facility] (1 source) Iodinated Contrast Media Drug allergy (disorder) 09-28-19 25 [facility] Medications Current Medications Medication Drug Class(es) [...] March 27, 2022 1:00am Cyanocobalamin-Liver Extract (Vitamin U54-Hohcl) Tablet (3 sources) Start: 03-27-2022 take 1 tablet by mouth once daily Cyanocobalamin-Liver Extract (Vitamin S21-Mwmta) Tablet Active 1 TABLET PO DAILY March 27, 2022 1:00am Start: 03-27-2022 take 1 tablet by victor hugo once daily Cyanocobalamin-Liver Extract (Vitamin D52-Vmsnl) Tablet Active 1 TABLET PO DAILY March [...] 11:00pm LACTOBACILLUS PROBIOTIC PO (20 sources) LACTOBACILLUS HI OBIOTIC PO Take by mouth. Active LACTOBACILLUS HI OBIOTIC PO Take by mouth. 0 Active Multivitamin With Folic Acid (4 sources) Start: 12-26-2015 take 1 tablet by mouth once daily Multivitamin With Folic Acid Active 1 TABLET PO DAILY December 26, 2015 12:00am Start: 12-26-2015 take 1 tablet by victor hugo once daily Multivitamin With Folic Acid Active [...] TABLE T PO EVERY 6 HOURS 5 3 January 23, 2023 acetaminophen 325 mg / [...] Start: 03-07-2016 IRON TABS FERROUS SULFATE TABS [id number] Yevgeniy PUENTES iron carbonyl 45 mg oral [...] Start: 03-07-2016 MULTIPLE VITAMINS/WOMENS TABS MULTIPLE VITAMINS-MINERALS [id number] Yevgeniy PUENTES MULTIPLE VITAMINS-MINERALS (1 source) Start: 03-07-2016 MULTIPLE VITAMINS/WOMENS TABS MULTIPLE VITAMINS-MINERALS [id number] Yevgeniy PUENTES Nirmatrelvir-Tank navir (8 sources) Start: 09-09-2021 End: 10-06-2021 [...] every 3 hours while awake SULFACETAMIDE SODIUM [id number] Reggie PUENTES Start: 11-18-2016 End: 11-25-2016 take 2 drop(s) into the eye(s) every three hours BLEPH-10 10 % SOLN 2 drops to right eye every 3 hours while awake SULFACETAMIDE SODIUM [id number] Reggie PUENTES sulfamethoxazole 800 mg / trimethoprim [...] on above: PREDIABETIC Diabetes mellitus without complication (7 sources) Hyperglycemia; Translations: [Hyperglycemia, unspecified] Onset: 5 [...] ankle and foot, without tophus (tophi)] Onset: 09-01-08-02-2024 Chronic Immunizations and screening for infectious disease [...] Chest pain; Translations: [Chest pain, unspecified] Onset: 5 04-08-2024 Episodic Nutritional deficiencies (4 sources) Serum [...] lower respiratory disease (9 sources) Cough; 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] 04-30-2022 Episodic [...] [Body mass index (BMI) 33.0-33.9, adult] Onset: 01-11-2021 Chronic Other nutritional; endocrine; and metabolic disorders (4 sources) Obesity; Translations: [Obesity, unspecified] 01-22-2022 Chronic Other nutritional; endocrine; and metabolic disorders (2 sources) Obesity, unspecified; Translations: [Obesity, unspecified] Chronic Other nutritional; endocrine; and metabolic disorders (3 sources) Hyperuricemia without signs of inflammatory arthritis and tophaceous disease; Translations: [Hyperuricemia without signs of inflammatory arthritis and tophaceous disease] Onset: 4 Episodic Other upper respiratory disease (20 sources) [...] Onset: 5 08-02-2024 Chronic Residual codes; unclassified (1 source) Obstructive sleep apnea (adult) (pediatric); Translations: [Obstructive sleep apnea (adult) (pediatric)] Onset: 5 Chronic Residual codes; unclassified (3 sources) Hypersomnia, unspecified; Translations: [Hypersomnia, unspecified] Onset: 4 Chronic Residual codes; unclassified (4 sources) H/O: [...] Test Name Value Interpretation Reference Range Facility Glucoseon 09-30-2024 Glucose [Mass/Vol] 151 mg/dL High 70-99 [facility] Comment on above: Performed By: #### L 501.0100, L501.9985 #### [facility] [address] [place], [address] Hemoglobin A1con 09-30-2024 HbA1c (Bld) [Mass fraction] 8.8 % High <=5.6 [facility] Comment on above: Result Comment: Norm al < 5.7 % Prediabetic 5.7 - 6.4 % Diabetic >or= 6.5 % Please note range changes. Performed By: #### L 501.0100, L501.9985 #### [facility] [address] [place], [address] 29on 09-28-2024 29 Addended by: ROLANDO GARY on: 09/28/2024 12:04 PM Modules accepted: Orders [facility] 29 Addended by: ALONSO RATLIFF on: 09/28/2024 07:37 AM Modules accepted: Orders [facility] 36on 09-28-2024 36 Call patient to info rm her that I received the lab from [facility]. CBC, renal and liver function stable. However patient's A1c is not at goal of less than 8 and I am unsure whether her general surgeon would remove her gallbladder at this time. Even though her glucose level was 132, her A1c is not at goal of what is acceptable level before an elective surgery. At this time I recommend more stringent diabetic low-carb meals and increase her Glimepiride to 2 mg a day. She is to call with the results of her daily glucose log in 3 to 4 weeks. It is up to her surgeon whether he wishes to pursue cholecystectomy at this time. She should have a check with me in 5 to 6 weeks. [facility] [address] [facility] Basic Metabolic Profile (BMP )on 09-28-2024 BUN/CRE 25.1 RATIO High 10-20 [facility] Comment on above: Performed By: #### L 500.2500, L100.0100, L501.9985 ####[facility] [address] [place], [address] Calcium [Mass/Vol] 9.4 mg/dL Normal 7.6-11.0 [facility] Comment on above: Performed By: #### L 500.2500, L100.0100, L501.9985 ####[facility] [address] [place], [address] Chloride [Moles/Vol] 103 mmol/L Normal 98-108 [facility] Comment on above: Performed By: #### L 500.2500, L100.0100, L501.9985 ####[facility] [address] [place], [address] CO2 [Moles/Vol] 21.0 mmol/L Normal 21.0-32.0 [facility] Comment on above: Performed By: #### L 500.2500, L100.0100, L501.9985 ####[facility] [address] [place], [address] Creatinine [Mass/Vol] 0.67 mg/dL Low 0.70-1.20 [facility] Comment on above: Performed By: #### L 500.2500, L100.0100, L501.9985 ####[facility] [address] [place], [address] GAP 14 Normal 5-15 [facility] Comment on above: Performed By: #### L 500.2500, L100.0100, L501.9985 ####[facility] [address] [place], [address] GFR/1.73 sq M.predicted among non-blacks MDRD (S/P/Bld) [Vol rate/Area] 101 mL/min/{1.73_m2} Normal >60 [facility] Comment on above: Result Comment: mL/m in/1.73m2 CKD-EPI Creatinine Equation (2020) Performed By: #### L 500.2500, L100.0100, L501.85 ####[facility] [address] [place], [address] Glucose [Mass/Vol] 132 mg/dL High 70-99 [facility] Comment on above: Performed By: #### L 500.2500, L100.0100, L501.85 ####[facility] [address] [place], [address] Potassium [Moles/Vol] 4.1 mmol/L Normal 3.3-5.1 [facility] Comment on above: Performed By: #### L 500.2500, L100.0100, L501.9985 ####[facility] [address] [place], [address] Sodium [Moles/Vol] 138 mmol/L Normal 133-145 [facility] Comment on above: Performed By: #### L 500.2500, L100.0100, L501.9985 ####[facility] [address] [place], [address] Urea nitrogen [Mass/Vol] 17 mg/dL Normal 4-19 [facility] Comment on above: Performed By: #### L 500.2500, L100.0100, L501.9985 ####[facility] [address] [place], [address] CBC W/Diff, Automatedon 07-0 9-2025 Absolute Lymph 2.77 X10 3/uL Normal 0.83-4.51 [facility] Comment on above: Performed By: #### L 500.2500, L100.0100, L501.9985 ####[facility] [address] [place], [address] Absolute Neut 5.6 X10 3/uL Normal 2.0-7.7 [facility] Comment on above: Performed By: #### L 500.2500, L100.0100, L501.9985 ####[facility] [address] [place], [address] Basophils/100 WBC (Bld) 0.8 % Normal 0-1 [facility] Comment on above: Performed By: #### L 500.2500, L100.0100, L501.9985 ####[facility] [address] [place], [address] Eosinophils/100 WBC (Bld) 2.1 % Normal 0-5 [facility] Comment on above: Performed By: #### L 500.2500, L100.0100, L501.9985 ####[facility] [address] [place], [address] Erythrocyte distribution width (RBC) [Ratio] 13.0 % Normal 11.6-14.6 [facility] Comment on above: Performed By: #### L 500.2500, L100.0100, L501.9985 ####[facility] [address] [place], [address] Hematocrit (Bld) [Volume fraction] 39.9 % Normal 37-47 [facility] Comment on above: Performed By: #### L 500.2500, L100.0100, L501.9985 ####[facility] [address] [place], [address] Hemoglobin (Bld) [Mass/Vol] 12.9 g/dL Normal 12.0-15.0 [facility] Comment on above: Performed By: #### L 500.2500, L100.0100, L501.9985 ####[facility] [address] [place], [address] IG% 0.600 Normal 0.0-0.9 [facility] Comment on above: Result Comment: IG% - Immature Granulocytes (promyelocytes, myelocytes and metamyelocytes) > 1% indicates that a LEFT SHIFT is Present. Performed By: #### L 500.2500, L100.0100, L501.9985 ####[facility] [address] [place], [address] Lymphocytes/100 WBC (Bld) 29.7 % Normal 19-41 [facility] Comment on above: Performed By: #### L 500.2500, L100.0100, L501.9985 ####[facility] [address] [place], [address] MCH (RBC) [Entitic mass] 29.2 pg Normal 27.0-32.0 [facility] Comment on above: Performed By: #### L 500.2500, L100.0100, L501.9985 ####[facility] [address] [place], [address] MCHC (RBC) [Mass/Vol] 32.3 g/dL Normal 32-36 [facility] Comment on above: Performed By: #### L 500.2500, L100.0100, L501.9985 ####[facility] [address] [place], [address] MCV (RBC) [Entitic vol] 90.3 fL Normal 81-99 [facility] Comment on above: Performed By: #### L 500.2500, L100.0100, L501.9985 ####[facility] [address] [place], [address] Monocytes/100 WBC (Bld) 6.2 % Normal 0-10 [facility] Comment on above: Performed By: #### L 500.2500, L100.0100, L501.9985 ####[facility] [address] [place], [address] Neutrophils/100 WBC (Bld) 60.6 % Normal 47-70 [facility] Comment on above: Performed By: #### L 500.2500, L100.0100, L501.9985 ####[facility] [address] [place], [address] Nucleated RBC (Bld) [#/Vol] 0 10*3/uL Normal 0-5 [facility] Comment on above: Performed By: #### L 500.2500, L100.0100, L501.9985 ####[facility] [address] [place], [address] Platelet mean volume (Bld) [Entitic vol] 11.4 fL Normal 6.2-12.0 [facility] Comment on above: Performed By: #### L 500.2500, L100.0100, L501.9985 ####[facility] [address] [place], [address] Platelets (Bld) [#/Vol] 312 10*3/uL Normal 150-450 [facility] Comment on above: Performed By: #### L 500.2500, L100.0100, L501.9985 ####[facility] [address] [place], [address] RBC (Bld) [#/Vol] 4.42 10*6/uL Normal 4.2-5.4 [facility] Comment on above: Performed By: #### L 500.2500, L100.0100, L501.9985 ####[facility] [address] [place], [address] RDW SD 42.7 fl Normal 35.1-43.9 [facility] Comment on above: Performed By: #### L 500.2500, L100.0100, L501.9985 ####[facility] [address] [place], [address] WBC (Bld) [#/Vol] 9.3 10*3/uL Normal 4.4-11.0 [facility] Comment on above: Performed By: #### L 500.2500, L100.0100, L501.9985 ####[facility] [address] [place], [address] Hemoglobin A1con 09-28-2024 HbA1c (Bld) [Mass fraction] 8.7 % High <=5.6 [facility] Comment on above: Result Comment: Norm al < 5.7 % Prediabetic 5.7 - 6.4 % Diabetic >or= 6.5 % Please note range changes. Performed By: #### L 500.2500, L100.0100, L501.9985 ####[facility] [address] [place], [address] Liver Profileon 09-28-2024 Albumin [Mass/Vol] 4.0 g/dL Normal 3.5-5.0 [facility] Comment on above: Performed By: #### L 500.3400 ####[facility] [address] [place], [address] ALK PHOS 126 U/L High 35-104 [facility] Comment on above: Performed By: #### L 500.3400 ####[facility] [address] [place], [address] ALT [Catalytic activity/Vol] 50 U/L High <=34 [facility] Comment on above: Performed By: #### L 500.3400 ####[facility] [address] [place], [address] AST [Catalytic activity/Vol] 26 U/L Normal <=31 [facility] Comment on above: Performed By: #### L 500.3400 ####[facility] [address] [place], [address] Bilirubin [Mass/Vol] 0.52 mg/dL Normal 0.00-1.30 [facility] Comment on above: Performed By: #### L 500.3400 ####[facility] [address] [place], [address] Bilirubin.direct [Mass/Vol] 0.22 mg/dL Normal 0.00-0.30 [facility] Comment on above: Performed By: #### L 500.3400 ####[facility] [address] [place], [address] Globulin (S) [Mass/Vol] 3.3 g/dL Normal 2.2-4.2 [facility] Comment on above: Performed By: #### L 500.3400 ####[facility] [address] [place], [address] T PROT 7.2 g/dL Normal 5.9-8.4 [facility] Comment on above: Performed By: #### L 500.3400 ####[facility] [address] [place], [address] 36on 09-27-2024 36 Call this patient an d forward the copy of the hemoglobin A1c and glucose level that I ordered in July. I believe she might want to get that done at [facility]. she also would like referral to dietitian. [facility] MR/PAT.ANEon 09-27-2024 MR/PAT.[facility] Medical Records Department [address] [place] [address] PAT - Anesthesia 09/27/242044 MR#: [id number] Acct: [id number] Name: JEN HOLDER Rep #: [id number] : 1965 59 From: Juan Polk MD PCP: Dr. Rolando Ceballos, DO Status:PRE [facility] Y Race: C Location: [facility] ADDENDUM by Dr. Juan Polk MD on 09/29/24 at 1624 Addendum Hemoglobin A1c is elevated at 8.7 and 8.8 on 2 readings in the past month. Dr. Palm is aware. She states this is a new diagnosis for the patient who has only recently been put on medication. Okay to proceed. 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 When Was Last Pacemaker Check QUESTION #4 FULL TEXT: You/Your Family Experience fever (hyperthermia) with Anesthesia Last Oral Intake Last Oral intake: Last Oral Intake NPO since Meds taken in AM with sips of water? 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 Female Yes 09/27/24 08:42 HX of Motion Sickness Yes 09/27/24 08:42 HX of N/V After Surgery No 09/27/24 08:42 Non-Smoker Yes 09/27/24 08:42 Duration of Surgery greater Yes 09/27/24 08:42 than 60 minutes Number of Risk Factors 4 09/27/24 08:42 PONV Score Severe Risk 09/27/24 08:42 Height Weight Height Weight: Anesthesia: Height Weight Height 5 ft 6 in 08/22/24 15:06 Respiratory Assessment Respiratory Assessment - slat basket 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: Respiratory Tract Infection Hx - slat basket 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 Hx Respiratory Tract Infection No 09/27/24 08:42 STOP Sleep Apnea STOP Sleep Apnea - slat basket 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: STOP Sleep Apnea - slat basket 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 Hx Hypertension No 09/27/24 08:42 Hx Sleep Apnea Yes 09/27/24 08:42 CPAP Yes 09/27/24 08:42 BIPAP No 09/27/24 08:42 Do you snore loudly (louder No 09/27/24 08:42 than talking or can be heard Do you often feel tired/ No 09/27/24 08:42 fatigued/ sleepy during daytime? Has anyone observed you stop No 09/27/24 08:42 breathing during sleep? STOP Results Positive 09/27/24 08:42 QUESTION #5 FULL TEXT : Do you snore loudly (louder than talking or can be heard through closed doors)? 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 Specify any problems Hx of Preganancy in last 3 No 09/27/24 08:42 Months Nurse Filling Out Transfusion [email or web address] 09/27/24 08:42 Questions: Date: 09/27/24 09/27/24 08:42 Time: 08:45 09/27/24 08:42 Patient unable to answer at this time (ie. confused, unrespo /Reproduction History /Reproductive History - slat basket 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: /Reproductive Hx- slat basket 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 Hx Now Gestational Age (in weeks): EDC: Hx Hx Para Hx Section SAB No 01/12/23 15:49 Active Medications Active Medications: Current Medications Generic Name Dose Route Start Last Admin Trade Name Fredee dee PRN Reason Stop Dose Admin Indocyanine Green 3.75 mg/ N/A 1.5 mls @ 999 mls/hr 10/03/24 07:30 IV 10/03/24 07:31 PREOP ONE [facility] Medical History (Updated 09/27/24 @ 08:50 by Santy Hassan) History of Clostridium difficile infection History of steroid therapy Vocal cord dysfunction History of echocardiogram Chest pain Cardiology follow-up encounter (more content not included)... [facility] 08-29-2024 36 Spoke with patient a nd advised, patient voiced understanding. Patient is already scheduled for next available 11/02/24 4:40PM. [facility] 36on 08-25-2024 36 Pt was also left a message to return call to the office if she has any questions. [facility] 36 Name of caller: Elvis snyder Contact phone number: [phone] Relationship to Patient: patient Provider: Dr Ceballos Practice: [facility] Chief Complaint/Reason for Call: Patient requesting a callback to advise if her lab results and US images were received. Thank you Best time of day caller can be reached: any Patient advised that office/PCP has 24-48 business hours to return their call: Yes [facility] 36on 08-23-2024 36 Pt scheduled [facility] 36 Noted [facility] 36 Name of caller: Elvis snyder Contact phone number: [phone] Relationship to Patient: patient Provider: Dr. Ceballos Practice: [facility] Chief Complaint/Reason for Call: The patient wanted the office to know she was able to get an appointment that accomodates her work schedule which is 11/02/2024 440 pm. Best time of day caller can be reached: Any Patient advised that office/PCP has 24-48 business hours to return their call: No [facility] 36 Reference 08/23/24 Mychart Message Name of caller: Amaris Holder Contact phone number: [phone] Relationship to Patient: Patient Provider: Rolando Ceballos Practice: [facility] Chief Complaint/Reason for Call: Patient states she re-faxed Allopurinol labs from [facility] again? Did you receive? (Not in Media [...] hours to return their call: Yes Normal [facility] Glucoseon 08-22-2024 Glucose [Mass/Vol] 162 mg/dL High 70-99 [facility] Comment on above: Performed By: #### L 501.9985, L501.0100 ####[facility] [id number] [facility] [place], [place], [id number] Hemoglobin A1con 08-22-2024 HbA1c (Bld) [Mass fraction] 8.8 % High <=5.6 [facility] Comment on above: Result Comment: Norm al < 5.7 % Prediabetic 5.7 - 6.4 % Diabetic >or= 6.5 % Please note range changes. Performed By: #### L 501.9985, L501.0100 ####[facility] [id number] [facility] [place], [place], [address] Hemoglobin A1c percentageOrd ered By: Rolando Ceballos on 08-22-2024 HbA1c (Bld) [Mass fraction] 8.8 % High <5.7 [facility] Comment on above: Normal < 5.7 % Predi abetic 5.7 - 6.4 % Diabetic >or= 6.5 % Please note range changes. Serum glucose measurement (m ass/volume)Ordered By: Rolando Ceballos on 08-22-2024 Glucose [Mass/Vol] 162 mg/dL High 70-99 [facility] Surgery Visit Reporton 08-22 Surgery Visit Report [facility] [address] [place] [address] OFFICE VISIT Date of Service: 08/22/24 MR#: [id number] Acct: [id number] Name: JEN HOLDER Rep #: [id number] : 1965 Provider: Dr. Marisa schilling MD Age/Sex: 59/F Location: [facility] Status: Signed Intake Vital Signs 05/04/24 [...] to the ER on August 07 at [place] her AST and ALT were slightly elevated [...] gallbladder prob (more content not included)... Normal [facility] Serum or plasma uric acid me asurement (mass/volume)Ordered By: Rolando Ceballos on 08-20-2024 Urate [Mass/Vol] 5.3 mg/dL 2.6-6.0 [facility] Comment on above: The drugs N-Acetylcy steine and Metamizole may falsely depress this assay. Uric Acidon 08-20-2024 URIC 5.3 mg/dL Normal 2.6-6.0 [facility] Comment on above: Result Comment: The drugs N-Acetylcysteine and Metamizole may falsely depress this assay. Performed By: #### L 501.1400 ####[facility] [id number] [facility] [place], [place], [address] Abdomen Limitedon 08-12-2024 Abdomen Limited [facility] [address] [place] [address] Abdomen Limited MR#: [id number] Acct: [id number] Name: JEN HOLDER Rep #: [id number] : 1965 F 59 From: Cabrera barroso MD PCP: Dr. Rolando Ceballos DO Status: REG CLI Study: Abdomen Limited Date of Exam: 08/12/24 Exam# [id number] Ordering Dr: Rolando Ceballos DO PROCEDURE: ABDOMEN [...] fatty infiltration of the liver. Reading Location: [facility] CC: Dr. Rolando Ceballos DO Pad Extractor Tender: Signed [facility] No Panel InformationOrdered By: Laquita Foley on 08-08-2024 P Coleman 41 degrees [employer] Work Phone: HI Interval 148 ms [facility] Work Phone: QRS Coleman -28 degrees [employer] [facility] Work Phone: QRSD Interval 96 ms [facility] Work Phone: QT Interval 378 ms [employer] [facility] Work Phone: QTC Interval 509 ms [facility] [employer] Work Phone: T Wave Coleman 23 degrees [employer] [facility] Work Phone: [employer] [facility] [facility] Work Phone: No Panel Informationon 08-08 Laquita Foley DO - 08/08/2024 IMPRESSION: Sinus tachycardia Borderline left axis deviation Abnormal R-wave progression, late transition Borderline repolarization abnormality Borderline prolonged QT interval Electronically Signed On 08-08-2024 03:24:35 EDT by Laquita Foley [facility] [employer] Vital signsOrdered By: Rashida Foley on 08-08-2024 Heart rate 108 /min bpm [facility] Work Phone: BASIC METABOLIC PANELon 07-21 Anion gap [Moles/Vol] 10 mmol/L Normal 3-13 [facility] Comment on above: Performed By: #### L AB15, LAB20, LAB99, [id number] ####Roadway Technician: JORGE STALLWORTH ([id number])[facility]OSPITALIrene BORREROGALLUP INDIAN MEDICAL CENTERN (SBHLAB)[address] Calcium [Mass/Vol] 8.8 mg/dL Normal 8.4-10.2 [facility] Comment on above: Performed By: #### L AB15, LAB20, LAB99, [id number] ####Roadway Technician: JORGE STALLWORTH ([id number])[facility]ITAL[facility]rene BORREROGALLUP INDIAN MEDICAL [facility]ENTERN (SBHLAB)[address] Chloride [Moles/Vol] 108 mmol/L High 98-107 [facility] Comment on above: Performed By: #### L AB15, LAB20, LAB99, [id number] ####Roadway Technician: JORGE STALLWORTH ([id number])[facility] (SBHLAB)[address] CO2 [Moles/Vol] 22 mmol/L Normal 22-29 [facility] Comment on above: Performed By: #### L AB15, LAB20, LAB99, [id number] ####Roadway Technician: JORGE STALLWORTH ([id number])[facility] (SBHLAB)[address] Creatinine [Mass/Vol] 0.73 mg/dL Normal 0.57-1.11 [facility] Comment on above: Performed By: #### L AB15, LAB20, LAB99, [id number] ####Roadway Technician: JORGE STALLWORTH ([id number])[facility] (SBHLAB)[address] GLOMERULAR FILTRATION RATE ML/MIN/1.73 SQ M.PREDICTED >90.0 Normal >60.0 [facility] Comment on above: Result Comment: Calc ulation based on the Chronic Kidney Disease Epidemiology Collaboration (CKD-EPI) equation refit without adjustment for race Performed By: #### L AB15, LAB20, LAB99, [id number] ####Roadway Technician: JORGE STALLWORTH ([id number])[facility] (SBHLAB)[address] Glucose [Mass/Vol] 215 mg/dL High 74-100 [facility] Comment on above: Performed By: #### L AB15, LAB20, LAB99, [id number] ####Roadway Technician: JORGE STALLWORTH ([id number])[facility] (SBHLAB)[address] Potassium [Moles/Vol] 3.8 mmol/L Normal 3.5-5.1 [facility] Comment on above: Result Comment: [facility] potassium values may be up to 0.5 mmol/L lower than serum values. Performed By: #### L AB15, LAB20, LAB99, [id number] ####Roadway Technician: JORGE STALLWORTH ([id number])[facility] (SBHLAB)[address] Sodium [Moles/Vol] 140 mmol/L Normal 136-145 [facility] Comment on above: Performed By: #### L AB15, LAB20, LAB99, [id number] ####Roadway Technician: JORGE STALLWORTH ([id number])[facility] (SBHLAB)[address] Urea nitrogen [Mass/Vol] 21 mg/dL Normal 9-23 [facility] Comment on above: Performed By: #### L AB15, LAB20, LAB99, [id number] ####Roadway Technician: JORGE STALLWORTH ([id number])[facility] (SBHLAB)[address] Basic metabolic 1998 panelon 08-07-2024 Anion gap [Moles/Vol] 10 mmol/L 3 - 13 mmol/L [facility] Calcium [Mass/Vol] 8.8 mg/dL 8.4 - 10. 2 mg/dL [facility] Chloride [Moles/Vol] 108 mmol/L High 98 - 10 7 mmol/L [facility] CO2 [Moles/Vol] 22 mmol/L 22 - 29 mmol/L [facility] Creatinine [Mass/Vol] 0.73 mg/dL 0.57 - 1.11 mg/dL [facility] GFR/1.73 sq M.predicted (S/P/Bld) [Vol rate/Area] - PINF [facility] Comment on above: Calculation based on the Chronic Kidney Disease Epidemiology Collaboration (CKD-EPI) equation refit without adjustment for race Glucose [Mass/Vol] 215 mg/dL High 74 - 100 mg/dL [facility] Potassium [Moles/Vol] 3.8 mmol/L 3.5 - 5.1 mmol/L [facility] Comment on above: Plasma potassium maría ues may be up to 0.5 mmol/L lower than serum values. Sodium [Moles/Vol] 140 mmol/L 136 - 145 mmol/L [facility] Urea nitrogen [Mass/Vol] 21 mg/dL 9 - 23 mg/dL [facility] CBC W Auto Differential pane l (Bld)on 08-07-2024 Basophils (Bld) [#/Vol] 0.1 10*3/uL 0.0 - 0.2 10*3/uL [facility] Basophils/100 WBC (Bld) 0.7 % 0.0 - 2.0 % [facility] Eosinophils (Bld) [#/Vol] 0.2 10*3/uL 0.0 - 0.5 10*3/uL [facility] Eosinophils/100 WBC (Bld) 1.9 % 0.0 - 6.0 % [facility] Erythrocyte distribution width (RBC) [Ratio] 12.5 % 11.5 - 15.0 % [facility] Hematocrit (Bld) [Volume fraction] 39.1 % 35.0 - 47.0 % [facility] Hemoglobin (Bld) [Mass/Vol] 12.8 g/dL 11.7 - 16.0 g/dL [facility] Immature granulocytes (Bld) [#/Vol] 0 10*3/uL NINF - 0.1 10*3/uL [facility] Immature granulocytes/100 WBC (Bld) 0.3 % 0.0 - 2.0 % [facility] Interpretation and review of laboratory results Normal [facility] Lymphocytes (Bld) [#/Vol] 2.5 10*3/uL 1.0 - 4.3 10*3/uL [facility] Lymphocytes/100 WBC (Bld) 23.6 % 15.0 - 45.0 % [facility] MCH (RBC) [Entitic mass] 29.4 pg 26.0 - 34.0 pg [facility] MCHC (RBC) [Mass/Vol] 32.7 % 30.5 - 36.0 % [facility] MCV (RBC) [Entitic vol] 89.7 fL 77.0 - 99.0 fL [facility] Monocytes (Bld) [#/Vol] 0.6 10*3/uL 0.0 - 0.9 10*3/uL [facility] Monocytes/100 WBC (Bld) 6 % 5.0 - 13.0 % [facility] Neutrophils (Bld) [#/Vol] 7.1 10*3/uL 1.8 - 7.5 10*3/uL [facility] Neutrophils/100 WBC (Bld) 67.5 % 38.0 - 82.0 % [facility] Nucleated RBC/100 WBC (Bld) [Ratio] 0 % [facility] Platelet mean volume (Bld) [Entitic vol] 11 fL 9.0 - 12.7 fL [facility] Platelets (Bld) [#/Vol] 331 10*3/uL 140 - 440 10*3/uL [facility] RBC (Bld) [#/Vol] 4.36 10*6/uL 3.80 - 5.2 0 10*6/uL [facility] WBC (Bld) [#/Vol] 10.5 10*3/uL 3.6 - 10.7 10*3/uL [facility] CBC WITH AUTO DIFFERENTIALon 08-07-2024 Basophils (Bld) [#/Vol] 0.1 10*3/uL Normal 0.0-0.2 [facility] Comment on above: Performed By: #### L [id number] ####Roadway Technician: JORGE STALLWORTH ([id number])[facility] (SBAB)[address] [place] [address] [facility] Basophils/100 WBC (Bld) 0.7 % Normal 0.0-2.0 S [facility] Comment on above: Performed By: #### L [id number] ####Roadway Technician: JORGE STALLWORTH ([id number])[facility]ITALA BARBGALLUP INDIAN MEDICAL CENTERN (SBHLAB)[address] [place] [address] Eosinophils (Bld) [#/Vol] 0.2 10*3/uL Normal 0.0-0.5 [facility] Comment on above: Performed By: #### L [id number] ####Roadway Technician: JORGE STALLWORTH ([id number])[facility]ITALA BARBGALLUP INDIAN MEDICAL CENTERN (SBHLAB)[address] Eosinophils/100 WBC (Bld) 1.9 % Normal 0.0-6.0 [facility] Comment on above: Performed By: #### L [id number] ####Roadway Technician: JORGE CUIRONNIE ([id number])[facility] ([facility])[address] [place] [address] Erythrocyte distribution width (RBC) [Ratio] 12.5 % Normal 11.5-15.0 [facility] Comment on above: Performed By: #### L [id number] ####Roadway Technician: JORGE CUIRONNIE ([id number])[facility] ([facility])[address] [place] [address] Hematocrit (Bld) [Volume fraction] 39.1 % Normal 35.0-47.0 [facility] Comment on above: Performed By: #### L [id number] ####Roadway Technician: JORGE STALLWORTH ([id number])[facility] (SBAB)[address] [place] [address] Hemoglobin (Bld) [Mass/Vol] 12.8 g/dL Normal 11.7-16.0 [facility] Comment on above: Performed By: #### L [id number] ####Roadway Technician: JORGE STALLWORTH ([id number])[facility] (SBAB)[address] [place] [address] IMMATURE GRANS % 0.3 % Normal 0.0-2.0 [facility] Comment on above: Performed By: #### L [id number] ####Roadway Technician: JORGE STALLWORTH ([id number])[facility]OS[facility]ITALIrene BORREROGALLUP INDIAN MEDICAL CENTERTiffany (SBHLAB)[address] IMMATURE GRANS ABSOLUTE 0.0 10*3/uL Normal <0.1 [facility] Comment on above: Performed By: #### L [id number] ####Roadway Technician: JORGE STALLWORTH ([id number])[facility]ITALI[facility] [place] (SBHLAB)[address] Lymphocytes (Bld) [#/Vol] 2.5 10*3/uL Normal 1.0-4.3 [facility] Comment on above: Performed By: #### L [id number] ####Roadway Technician: JORGE STALLWORTH ([id number])[facility]ITALI[facility] [place] (SBHLAB)[address] [place] [address] Lymphocytes/100 WBC (Bld) 23.6 % Normal 15.0-45.0 [facility] Comment on above: Performed By: #### L [id number] ####Roadway Technician: JORGE STALLWORTH ([id number])[facility]OS[facility]ITALIrene [facility]REROSUM[facility] (SBHLAB)[address] MCH (RBC) [Entitic mass] 29.4 pg Normal 26.0-34.0 [facility] Comment on above: Performed By: #### L [id number] ####Roadway Technician: JORGE STALLWORTH ([id number])[facility]ITAL[facility] [place] (SBHLAB)[address] MCHC 32.7 % Normal 30.5-36.0 [facility] Comment on above: Performed By: #### L [id number] ####Roadway Technician: JORGE STALLWORTH ([id number])[facility]ITALIrene [facility]EROSUM[facility] (SBHLAB)[address] MCV (RBC) [Entitic vol] 89.7 fL Normal 77.0-99.0 [facility] Comment on above: Performed By: #### L [id number] ####Roadway Technician: JORGE [id number])[facility] (SBHLAB)[address] Monocytes (Bld) [#/Vol] 0.6 10*3/uL Normal 0.0-0.9 [facility] Comment on above: Performed By: #### L [id number] ####Roadway Technician: JORGE STALLWORTH ([id number])[facility] (SBHLAB)[address] Monocytes/100 WBC (Bld) 6.0 % Normal 5.0-13.0 [facility] Comment on above: Performed By: #### L [id number] ####Roadway Technician: JORGE STALLWORTH ([id number])[facility] [place] (SBHLAB)[address] NEUTROPHILS ABSOLUTE 7.1 10*3/uL Normal 1.8-7.5 [facility] Comment on above: Performed By: #### L [id number] ####Roadway Technician: JORGE STALLWORTH ([id number])[facility] [place] (SBHLAB)[address] Neutrophils/100 WBC (Bld) 67.5 % Normal 38.0-82.0 [facility] Comment on above: Performed By: #### L [id number] ####Roadway Technician: JORGE STALLWORTH ([id number])[facility] [place] (SBHLAB)[address] NRBC 0.0 /100 WBCs Normal 0.0-2.0 [facility] Comment on above: Performed By: #### L [id number] ####Roadway Technician: JORGE STALLWORTH ([id number])[facility] [place] (SBHLAB)[address] Platelet mean volume (Bld) [Entitic vol] 11.0 fL Normal 9.0-12.7 [facility] Comment on above: Performed By: #### L [id number] ####Roadway Technician: JORGE STALLWORTH ([id number])[facility] HOS[facility]ITALIrene BORREROSNEHAL (SBHLAB)[address] Platelets (Bld) [#/Vol] 331 10*3/uL Normal 140-440 [facility] Comment on above: Performed By: #### L [id number] ####Roadway Technician: JORGE STALLWORTH ([id number])[facility]ITALIrene BORREROGALLUP INDIAN MEDICAL CENTERN (SBHLAB)[address] RBC (Bld) [#/Vol] 4.36 10*6/uL Normal 3.80-5.20 [facility] Comment on above: Performed By: #### L [id number] ####Roadway Technician: JORGE STALLWORTH ([id number])[facility]ITALIrene BORREROGALLUP INDIAN MEDICAL CENTERN (SBHLAB)[address] WBC (Bld) [#/Vol] 10.5 10*3/uL Normal 3.6-10.7 [facility] Comment on above: Performed By: #### L [id number] ####Roadway Technician: JORGE STALLWORTH ([id number])[facility] (SBHLAB)[address] D-DIMER,QUANTITATIVEon 08-07 D-DIMER, INNOVANCE 0.42 mg/L Normal <0.50 [facility] Comment on above: Result Comment: LUDY Avila COMMENTS: [employer] D-Dimer values of <0.50 mg/L FEU can be used in combination with a pre-test probability model (e.g. Well's) to exclude pulmonary embolism (PE) disease, as well as an aid in the diagnosis of deep vein thrombosis (DVT). Performed By: #### L [id number] ####Roadway Technician: JORGE STALLWORTH ([id number])[facility]ITALIrene [facility]OSUM[facility] (SBHLAB)[address] ED Nursing Noteon 08-07-2024 ED Nursing Note Pt discharged for ho me with information on follow-up discussed. Pt states understanding. Normal [facility] ED Provider Noteon ED Provider Note Emergency Department Encounter [facility] ED Patient: Jen Holder : 1965 Date [...] D-DIMER,QUANTITATIVE - Normal D-DIMER, INNOVANCE 0.42 Narrative: [employer] D-Dimer values of <0.50 mg/L FEU can be used in combination with a pre-test probability model (e.g. Well's) to exclude pulmonary embolism (PE) disease, as well as an aid in the diagnosis of deep vein thrombosis (DVT). LIPASE - Normal L (more content not included)... Normal [facility] Fibrin D-dimer FEU (PPP) [Ma ss/Vol]on 08-07-2024 Interpretation and review of laboratory results Normal [facility] D-Dimer values of <0.50 mg/L FEU can be used in combination with a pre-test probability model (e.g. Well's) to exclude pulmonary embolism (PE) disease, as well as an aid in the diagnosis of deep vein thrombosis (DVT). [facility] HEPATIC FUNCTION PANELon Albumin [Mass/Vol] 3.4 g/dL Low 3.5-5.0 [facility] Comment on above: Performed By: #### L AB15, LAB20, LAB99, [id number] ####Roadway Technician: JORGE STALLWORTH ([id number])[facility] ([facility])[address] [place] [address] ALP [Catalytic activity/Vol] 115 U/L Normal 40-150 [facility] Comment on above: Performed By: #### L AB15, LAB20, LAB99, [id number] ####Roadway Technician: JORGE STALLWORTH ([id number])[facility] (SBHLAB)[address] ALT [Catalytic activity/Vol] 48 U/L High <30 [facility] Comment on above: Performed By: #### L AB15, LAB20, LAB99, [id number] ####Roadway Technician: JORGE STALLWORTH ([id number])[facility] (SBHLAB)[address] AST [Catalytic activity/Vol] 35 U/L High <34 [facility] Comment on above: Performed By: #### L AB15, LAB20, LAB99, [id number] ####Roadway Technician: JORGE BASIM ([id number])[facility] (SBHLAB)[address] Bilirubin [Mass/Vol] 0.3 mg/dL Normal <1.2 [facility] Comment on above: Performed By: #### L AB15, LAB20, LAB99, [id number] ####Roadway Technician: JORGE COONEYCHAPARRO ([id number])[facility] ([facility])[address] Bilirubin.indirect [Mass/Vol] 0.1 mg/dL Normal <0.5 [facility] Comment on above: Performed By: #### L AB15, LAB20, LAB99, [id number] ####Roadway Technician: JORGE COONEYCHAPARRO ([id number])[facility] ([facility])[address] [place] [address] Protein [Mass/Vol] 6.9 g/dL Normal 6.4-8.3 [facility] Comment on above: Result Comment: Seru m protein values are higher than plasma values. Samples from recumbent persons are lower by up to 0.5 g/dL as compared to ambulatory persons. After 60 years values are lower by up to 0.2 g/dL. Performed By: #### L AB15, LAB20, LAB99, [id number] ####Roadway Technician: JORGE COONEYCHAPARRO ([id number])[facility] ([facility])[address] [place] [address] HIGH SENSITIVITY TROPONIN, S ERIAL BASELINEon 08-07-2024 TROPONIN HS SERIAL BASELINE 4 ng/L Normal <=14 [facility] Comment on above: Result Comment: In i ndividuals presenting with symptoms > 2h, a baseline troponin <= 5 ng/L suggests acute cardiac injury is unlikely and further serial testing is generally not indicated. Performed By: #### L AB15, LAB20, LAB99, [id number] ####Roadway Technician: JORGE STALLWORTH ([id number])[facility] ([facility])[address] [place] [address] HIGH SENSITIVITY TROPONIN, S THO, SECOND TESTon 08-07-2024 2H TROPONIN HS (SERIAL 2ND TROPONIN) 4 ng/L Normal <=14 [facility] Comment on above: Result Comment: Risi ng or falling troponin delta below 2 ng/L as compared to baseline value suggests that acute cardiac injury is unlikely. Performed By: #### L [id number] ####Roadway Technician: JORGE STALLWORTH ([id number])[facility] ([facility])[address] [place] [address] Hepatic function 2000 panelo n 08-07-2024 Albumin [Mass/Vol] 3.4 g/dL Low 3.5 - 5.0 g/dL [facility] ALP [Catalytic activity/Vol] 115 U/L 40 - 150 U/L [facility] ALT [Catalytic activity/Vol] 48 U/L High NINF - 30 U/L [facility] AST [Catalytic activity/Vol] 35 U/L High [facility] - [facility] U/L [facility] Bilirubin [Mass/Vol] 0.3 mg/dL [facility] - 1.2 mg/dL [facility] Bilirubin.conjugated [Mass/Vol] 0.1 mg/dL [facility] - 0.5 mg/dL [facility] Protein [Mass/Vol] 6.9 g/dL 6.4 - 8.3 g/dL [facility] Comment on above: Serum protein values are higher than plasma values. Samples from recumbent persons are lower by up to 0.5 g/dL as compared to ambulatory persons. After 60 years values are lower by up to 0.2 g/dL. LIPASEon 08-07-2024 Lipase [Catalytic activity/Vol] 44 U/L Normal <55 [facility] Comment on above: Performed By: #### L AB15, LAB20, LAB99, [id number] ####Roadway Technician: JORGE STALLWORTH ([id number])[facility] ([facility])[address] [place] [address] Laboratory - Chemistry and C hemistry - challengeon 08-07-2024 Lipase [Catalytic activity/Vol] 44 U/L NINF - 55 U/L [facility] Laboratory - Coagulationon 0 08-07-2024 Fibrin D-dimer FEU (PPP) [Mass/Vol] 0.42 mg/L NINF - 0.50 mg/L [facility] Lipase [Catalytic activity/V ol]on 08-07-2024 Interpretation and review of laboratory results Normal [facility] [employer] No Panel Informationon 08-07 2h Troponin HS (Serial 2nd Troponin) 4 ng/L NINF - 14 ng/L [facility] Comment on above: Rising or falling tr oponin delta below 2 ng/L as compared to baseline value suggests that acute cardiac injury is unlikely. Interpretation and review of laboratory results Normal [facility] Interpretation and review of laboratory results Normal [facility] Troponin HS Serial Baseline 4 ng/L [facility] - 14 ng/L [facility] Comment on above: In individuals prese nting with symptoms > 2h, a baseline troponin <= 5 ng/L suggests acute cardiac injury is unlikely and further serial testing is generally not indicated. [facility] Interpretation and review of laboratory results Abnormal [facility] [employer] XR Chest Single viewon 08-07 1. Lines/Tubes/Devices/Pace [...] Electronically Signed Date/Time: 08/07/2024 6:18 PM [employer] RADIOLOGY SYSTEM Patient Name: JEN HOLDER : 1965 [place] Llct#: [id number] Exam Date/Time: 08/07/2024 18:10 Procedure: XR CHEST 1 VIEW Ordering Provider: LLOYD SAMANTHA Reason For Exam: CHEST PAIN; Chest Pain EXAM TYPE: RADIOLOGIC EXAMINATION, CHEST, SINGLE VIEW FRONTAL (CXR SINGLE VIEW) EXAM DATE AND TIME: 08/07/2024 6:10 PM EDT INDICATION: Chest pain COMPARISON: None TECHNIQUE: A single portable frontal view of the thorax was obtained and reviewed. Special views: None. [facility] Francisco Cochran MD - 08/07/2024 Patient Name: JEN HOLDRE : 1965 Exam Date/Time: 08/07/2024 18:10 Procedure: [...] Electronically Signed Date/Time: 08/07/2024 6:18 PM EDT [facility] Radiology Study observation (narrative) [facility] Chest Single viewOrdered By: Francisco Cochran on 08-07-2024 [facility] [employer] Work Phone: Office Visiton 08-02-2024 Follow-up visit [id number] Elvis Holder claudio 1965 F Date Provider Department Center 08/02/2024 [id number] CEBALLOS F [facility] Family History Problem Relation Age of Onset [...] 62 Father 62 Sister Brother Level of Service:42090 HI OFFICE/OUTPATIENT ESTABLISHED MOD MDM 30 MIN Reason for Visit and Comments: Follow-up [186027] - Med check Immunizations [58] - Pt declined Pneumococcal Vaccine Normal [facility] Progress Noteon 08-02-2024 Progress Note [facility] - [address] [facility] [address] Visit type: Established Patient Reason for [...] Procedure Laterality Date ANKLE FRACTURE SURGERY Right 2010 ORIF COLONOSCOPY 201 (more content not included)... [facility] 36on 06-16-2024 36 Recent Visits Date Type Provider Dept 04/08/24 Office Visit Bjorn Tejada PA-C [facility] 03/01/24 Office Visit Bjorn Tejada PA-C [facility] 01/05/24 Office Visit Bjorn Tejada PA-C [facility] Showing recent visits within past 365 days and meeting all other requirements Future Appointments Date Type Provider Dept 06/28/24 Appointment Rolando Ceballos DO [facility] Showing future appointments within next 90 [...] recent labs completed in chart? N/A None [facility] 36on 06-08-2024 36 We have been unable to reach your patient to schedule their testing. Test Name: Transthoracic echocardiogram (TTE) complete with contrast, bubble, strain, and 3D PRN 1st attempt mychart 05/04/24 - KM 2nd attempt -- LVM with cs details 06/08/24 CLP [facility] 36on 05-05-2024 36 Spoke with patient a nd advised that the Chest CT is now scanned and in chart to review and Aris Tejada has also seen it. [facility] 36 Called [facility] to get copy of CTA [facility] 36 Name of caller: Elvis snyder Contact phone number: [phone] Relationship to Patient: patient Provider: Lin Practice: [facility] Chief Complaint/Reason for Call: Pt had testing done from [facility] the one report I am not seeing [...] business hours to return their call: N/A [facility] Cardiology Visit Reporton Cardiology Visit Report [facility] [address] [place] [address] OFFICE VISIT Date of Service: 05/04/24 MR#: [id number] Acct: [id number] Name: JEN HOLDER Rep #: [id number] : 1965 Provider: Dr. Cody Lee MD Age/Sex: 59/F Location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 Normal [facility] Coronary Angiography CTon Coronary Angiography CT [facility] Services [address] [place] [address] 04/28/24 1707 MR#: [id number] Acct: [id number] Name: JEN HOLDER Rep #: [id number] : 1965 59 From: Cody Lee MD [...] Rolando Ceballos DO; DHAVAL García Signed Normal [facility] Limited Chest CT Cardiac Onl yon 04-28-[address] Cardiac Only [facility] [address] [place] [address] Cardiac Only MR#: [id number] Acct: [id number] Name: JEN HOLDER Rep #: [id number] : 1965 F 59 From: Cabrera barroso MD PCP: Dr. Rolando Ceballos DO Status: REG CLI Study: Limited Chest CT Cardiac Only Date of Exam: Exam# [id number] Ordering Dr: Bjorn Tejada PROCEDURE: LIMITED CHEST [...] use of iterative reconstruction technique). Reading Location: [id number] CC: Dr. Rolando Ceballos DO; DHAVAL García Pad Extractor Tender: Signed Normal [facility] 36on 04-27-2024 36 Name of caller: Angel Contact phone number: [phone] Relationship to Patient: [facility] Provider: Lin Practice: [facility] Chief Complaint/Reason for Call: pt having testing done tomorrow, Angel states she will need to take Metoprolol tonight and tomorrow, please send script YESSENIA Best time of day caller can be reached: any Patient advised that office/PCP has 24-48 business hours to return their call: No Normal [facility] Surgery Visit Reporton 04-25 Surgery Visit Report [facility] [address] [place] [address] OFFICE VISIT Date of Service: 04/25/24 MR#: [id number] Acct: [id number] Name: JEN HOLDER Rep #: [id number] : 1965 Provider: Dr. Marisa schilling MD Age/Sex: 59/F Location: [facility] Status: Signed Intake Vital Signs 03/25/24 10:27 Height 5 ft 6 in Intake Visit Reasons: UMBILICAL HERNIA DOS 03/25 Chief Complaint: umbilical hernia dos 03/25 Product Design Manager Required: No Is patient in pain?: No [...] S/P umbilical hernia repair, follow-up exam Z09 [facility] Medical History (Updated 04/25/24 @ 11:17 by Va Villarreal RN) Insomnia Nonspecific chest pain Abnormal EKG BMI [...] History (Updated 04/25/24 @ 11:19 by Va Villarreal RN) Mother Diabetes Thyroid disorder Father Colon cancer [...] is agreeable plan Marisa Palm M.D. Pager: [phone] [facility] [address], [address], [address] [place] [address] Office: [phone] 04/26/24 1356 Date Marisa Palm MD Cosigner Signature: Date (if applicable) CC: Dr. Rolando Ceballos, DO Normal [facility] Echo Completeon 04-15-2024 Echo Complete [facility] [address] [place] [address] Echo Complete 04/15/24 1455 MR#: [id number] Acct: [id number] Name: JEN HOLDER Rep #: [id number] : 1965 59 From: Cody Lee MD Attending Dr: DHAVAL García Status: REG CLI Ordering Dr: Bjorn Tejada Date: 04/15/24 Location: [facility] Sex: F C Admitted: Reason For [...] dysfunction. Ordering Physician: Bjorn Tejada Referring Physician: Bojrn Tejada Performed By: Brodwolf, Cornelio, RCS 04/18/24817 Date Cody Lee MD CC: Dr. Rolando Ceballos, DO; DHAVAL García Date Dictated: 04/15/245 Date Transcribed: 04/18/24817 Pad Extractor Tender: Signed Normal [facility] 36on 04-12-2024 36 Talked to patient an d let her about rx being called into her pharmacy, and faxed ov notes to [facility] per requested. Normal [facility] ECG 12 leadOrdered By: Sugar aHyes on 04-08-2024 [facility] Office Visiton 04-08-2024 Follow-up visit [id number] Elvis Holder 1965 F Date Provider Department Center 04/08/2024 BJORN GAO [facility] Family History Problem Relation Age of Onset Diabetes Mother Comments: insulin Other Mother Comments: age 62 of complications of PUD - etohism Crohn's disease Mother Alcohol abuse Mother Osteoporosis Mother Atrial fibrillation Father Comments: CHF High Blood Pressure Father Colon cancer Father 80 Comments: age 87 Stroke Father Family Status - Relation Status Age at Mother 62 Father 62 Level of Service:38171 HI OFFICE/OUTPATIENT ESTABLISHED LOW MDM 20 MIN Reason for Visit and Comments: Abnormal ECG [293] Normal [facility] Progress Noteon 04-08-2024 Progress Note - Chronic and unstab le continues to use trazodone does have sleep apnea continues to workup with pulmonology we will entertain the idea of CPAP device which should help sleeping issues as well. Normal [facility] Progress Note [facility] [address] [facility] [address] Dept: [phone] Dept Loc: [phone] Visit type: Established Patient Reason for Visit: [...] 02/11 H (more content not included)... Normal [facility] SCRN MAMM (CAD)W/CHERELLE BILATo n 04-08-2024 SCRN MAMM (CAD)W/CHERELLE BILAT [facility] Services [address] [place], [place] [address] SCRN MAMM (CAD)W/CHERELLE BILAT MR#: [id number] Acct: [id number] Name: JEN HOLDER Rep #: [id number] : 1965 F 58 From: Cabrera barroso MD PCP: Dr. Rolando Ceballos, DO Status: REG CLI Study: SCRN MAMM (CAD)W/CHERELLE BILAT Date of Exam: 03/23 10/14 Exam# [id number] Ordering Dr: Bjorn Tejada [id number] MAMMOGRAPHY - BILATERAL SCREENING REASON FOR EXAM: [...] delay biopsy of a clinically suspicious abnormality. [id number] Electronically Signed: Cabrera Fowler MD at 10:52 EST Reading Location ID and State: [facility] / [place] , Service support , CC: Dr. Rolando Ceballos DO; DHAVAL García Pad Extractor Tender: Signed Normal [facility] Surgery Visit Reporton 04-08 Surgery Visit Report [facility] [address] [place] [address] OFFICE VISIT Date of Service: 04/08/24 MR#: [id number] Acct: [id number] Name: JEN HOLDER Rep #: [id number] : 1965 Provider: Dr. Marisa schilling MD Age/Sex: 58/F Location: [facility] Status: Signed Intake Vital Signs 03/25/24 [...] S/P umbilical hernia repair, follow-up exam Z09 [facility] Medical History (Updated 04/09/24 @ 13:06 by [...] Date (if applicable) CC: Dr. Rolando Ceballos, Normal [facility] Discharge Instructionon Discharge Instruction [facility] Medical Records Department [address] [place] [address] Instructions for Home/Discharge Instructions 03/25/24 1152 MR#: [id number] Acct: [id number] Name: JEN HOLDER Rep #: [id number] : 1965 58 From: Marisa Palm MD PCP: Dr. Rolando Ceballos, Status:REG [facility] Discharge Instructions Diet Discharge Diet: Light diet [...] 5 PM and on the weekends call [phone] with any concerns. Test Results: Test results from this visit will be discussed in further detail at your follow-up appointment, if applicable. Discharge Plan Admission Attending Provider: Marisa Palm Primary Care Provider: Rolando Ceballos Instructions Print Language: Kuwaiti Discharge Orders/Prescriptions Prescriptions: New hydrocodone-acetaminop hen 5-325 [...] can be placed): Home, Self Care 03/25/24 1152 Marisa Palm MD CC: Dr. Rolando Ceabllos DO Signed Normal [facility] MR/POSTOP.ANEon 03-25-2024 MR/POSTOP.ANE [facility] Medical Records Department [address] [facility] [place] [address] Anesthesia Postop Eval I 03/25/24 1208 MR#: [id number] Acct: [id number] Name: ANNESHAYNE SCHULTZANN Rep #: [id number] : 1965 58 From: Eleni Ac CRNA PCP: Dr. Rolando Ceballos, DO Status:REG SDC Y Race: C Location: [place] [address] Anesthesia: Postop Eval I Current Vital Signs [...] completed: Yes 03/25/24 1209 Date Eleni Ac CRNA Cosigner Signature: Date CC: Signed Normal [facility] Operative Reporton Operative Report [facility] Medical Records Department [address] [place] [address] Operative Report 03/25/24 1149 MR#: [id number] Acct: [id number] Name: GLORYJEN Rep #: [id number] : 1965 58 From: Marisa Palm MD PCP: Dr. Rolando Ceballos, DO Status:REG [facility] Location: [place] [address] Operative Report (Standard) Operative Information Date of Procedure: 03/25/24 Pre-Operative Diagnosis: Umbilical hernia Post-Operative Diagnosis: Same Surgery/Procedure Performed: Umbilical hernia pair with mesh date night sitter: Yes Internet Salesperson: Gabo Root Tasks completed by registered nurse first assistant: Opening closing Type of Anesthesia: General/Supplemental [...] Ventralex ST hernia patch 4.3 cm Lot [id number] ref [id number] Special Medications: Ancef 2 g IV x [...] The hernia defect was closed with 2 kbdauv-ay-pcbut 0 Prolene. The wound was irrigated with [...] Ceballos DO; Dr. Marisa Palm MD Signed [facility] 12 Lead EKGon 03-21-2024 12 Lead EKG [facility] Services [address] [place] [address] 12 Lead EKG 03/21/24 0902 MR#: [id number] Acct: [id number] Name: JEN HOLDER Rep #: [id number] : 1965 58 From: Cody Lee MD Attending Dr: Dr. Marisa Palm MD Status: P RE SDC Ordering Dr: Marisa Palm MD Date: 03/21/24 Location: [facility] Sex: F C Admitted: Test Reason : [...] , age undetermined Abnormal ECG Confirmed by ROSA VANEGAS, CODY ([id number]), news video editor DORIE HAILE ([id number]) on 03/21/2024 10:08:35 AM Referred By: Marisa Palm Confirmed By: CODY LEE MD 03/21/24 1008 Date Cody Lee MD CC: Dr. Rolando Ceballos DO; Dr. Marisa Palm MD Signed [facility] MR/PATBRICEon 03-21-2024 MR/PAT.[facility] Medical Records Department [address] [place] [address] PAT - Anesthesia 03/21/24 1716 MR#: [id number] Acct: [id number] Name: JEN HOLDER Rep #: [id number] : 1965 58 From: All Mak MD PCP: Dr. 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 Female Yes 03/18/24 08:14 HX of Motion [...] 03/07/24 15:25 Respiratory Assessment Respiratory Assessment - 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 basket 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: Respiratory Tract Infection Hx - slat basket 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 Hx Respiratory Tract Infection No 03/18/24 08:14 STOP Sleep Apnea STOP Sleep Apnea - slat basket 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: STOP Sleep Apnea - slat basket 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 Hx Hypertension No 03/18/24 08:14 Hx Sleep [...] 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: Tobacco Use History - 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 basket 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 Tobacco Use Smoking Status Former smoker 03/18/24 08:14 Hx Tobacco Use No 03/18/24 08:14 Years Smoking Packs Smoked per Day Smoking Cessation Date was No - quit smoking greater 03/18/24 08:14 within the last 15 years than 15 years ago Hx Smoking Cessation Date Hx Smoking Cessation No 03/18/24 08:14 Counseling Hematologic Medial History Hematologic Hx - 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 Specify any problems Hx of Preganancy in last 3 No 03/18/24 08:14 Months Nurse Filling Out Trans[facility] 03/18/24 08:14 Questions: Date: 03/18/24 03/18/24 08:14 Time: 08:21 03/18/24 08:14 Patient unable to answer at this time (ie. confused, unrespo /Reproduction History /Reproductive History - slat basket 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: /Reproductive Hx- slat basket 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 Hx Now Gestational Age (in weeks): EDC: Hx Hx Para Hx Section SAB No 01/12/23 15:49 [facility] Medical History (Updated 03/18/24 @ 08:20 by [...] DAILYCM 01/10/16 Un (more content not included)... [facility] 36on 03-17-2024 36 Orders cancelled [facility] 36 Pt took orders for Complete PFT and said she would sched her own test as she worked as [facility] and she would have done there. We also faxed orders and they would have contacted her at least once. Pt never had test done. Can orders be closed? [facility] 36on 03-10-2024 36 Orders were faxed to [facility] on 01/12/24. Pt was to sched her own tests due to working at [facility] 36 We have been unable to reach your patient to schedule their testing. Test Name: Complete PFT Pre and Post Bronchodilator 1st Attempt: left voice message, 01/15/24 JS 2nd Attempt I talked to the patient and she stated she does all her testing via [facility]. [facility] Surgery Visit Reporton 03-07 Surgery Visit Report [facility] [address] [place] [address]. [address] [place] [address] OFFICE VISIT Date of Service: 03/07/24 MR#: [id number] Acct: [id number] Name: JEN HOLDER Rep #: [id number] : 1965 Provider: Dr. Marisa schilling MD Age/Sex: 58/F Location: [facility] Status: Signed Intake Vital Signs 04/27/23 [...] (Verified 03/07/24 15:26) Itching latex Allergy (Verified 12/16/24 15:26) Itching oxycodone (From Percocet) Allergy (Verified [...] wheezing Gastro Gas (more content not included)... [facility] 36on 03-01-2024 36 S: [facility] calling CAC f or med clarification B: ADWOA Bonilla: [facility] requesting frequency for prn med. R. Informed [facility] that RN will send TE to provider & office will call back to advise or addend E-script. Reason for Disposition Pharmacy calling with prescription question and triager unable to answer question Protocols used: Medication Question [id number]-GD [facility] Abdomen/Pelvis without Conto n 03-01-2024 Abdomen/Pelvis without Cont [facility] Imaging Services [address] [place], [place] [address] Abdomen/Pelvis without Cont MR#: [id number] Acct: [id number] Name: JEN HOLDER Rep #: [id number] : 1965 F 58 From: Cabrera barroso MD PCP: Dr. Rolando Ceballos, DO Status: REG CLI Study: Abdomen/Pelvis without Cont Date of Exam: 02/20 Exam# [id number] Ordering Dr: Bjorn Tejada [id number] STUDY: CT ABDOMEN AND PELVIS WITHOUT CONTRAST [...] at 14:58 EST , CC: Dr. Rolando Ceballos DO; DHAVAL García Pad Extractor Tender: Signed Normal [facility] CBC W/Diff, Automatedon 12- 0-2023 Absolute Lymph 2.87 X10 3/uL Normal 0.83-4.51 [facility] Comment on above: Performed By: #### L 100.0100, L500.4050, L501.2450 ####[facility] [id number] [place], [address] Absolute Neut 7.2 X10 3/uL Normal 2.0-7.7 [facility] Comment on above: Performed By: #### L 100.0100, L500.4050, L501.2450 ####[facility] [address] [place], [address] Basophils/100 WBC (Bld) 0.6 % Normal 0-1 [facility] Comment on above: Performed By: #### L 100.0100, L500.4050, L501.2450 ####[facility] [address] [place], [address] Eosinophils/100 WBC (Bld) 1.8 % Normal 0-5 [facility] Comment on above: Performed By: #### L 100.0100, L500.4050, L501.2450 ####[facility] [address] [place], [address] Erythrocyte distribution width (RBC) [Ratio] 13.0 % Normal 11.6-14.6 [facility] Comment on above: Performed By: #### L 100.0100, L500.4050, L501.2450 ####[facility] [address] [place], [address] Hematocrit (Bld) [Volume fraction] 40.4 % Normal 37-47 [facility] Comment on above: Performed By: #### L 100.0100, L500.4050, L501.2450 ####[facility] [address] [place], [address] Hemoglobin (Bld) [Mass/Vol] 13.0 g/dL Normal 12.0-15.0 [facility] Comment on above: Performed By: #### L 100.0100, L500.4050, L501.2450 ####[facility] [address] [place], [address] IG% 0.400 Normal 0.0-0.9 [facility] Comment on above: Result Comment: IG% - Immature Granulocytes (promyelocytes, myelocytes and metamyelocytes) > 1% indicates that a LEFT SHIFT is Present. Performed By: #### L 100.0100, L500.4050, L501.2450 ####[facility] [address] [place], [address] Lymphocytes/100 WBC (Bld) 26.3 % Normal 19-41 [facility] Comment on above: Performed By: #### L 100.0100, L500.4050, L501.2450 ####[facility] [address] [place], [address] MCH (RBC) [Entitic mass] 29.3 pg Normal 27.0-32.0 [facility] Comment on above: Performed By: #### L 100.0100, L500.4050, L501.2450 ####[facility] [address] [place], [address] MCHC (RBC) [Mass/Vol] 32.2 g/dL Normal 32-36 [facility] Comment on above: Performed By: #### L 100.0100, L500.4050, L501.2450 ####[facility] [address] [place], [address] MCV (RBC) [Entitic vol] 91.0 fL Normal 81-99 [facility] Comment on above: Performed By: #### L 100.0100, L500.4050, L501.2450 ####[facility] [address] [place], [address] Monocytes/100 WBC (Bld) 5.1 % Normal 0-10 [facility] Comment on above: Performed By: #### L 100.0100, L500.4050, L501.2450 ####[facility] [address] [place], [address] Neutrophils/100 WBC (Bld) 65.8 % Normal 47-70 [facility] Comment on above: Performed By: #### L 100.0100, L500.4050, L501.2450 ####[facility] [address] [place], [address] Nucleated RBC (Bld) [#/Vol] 0 10*3/uL Normal 0-5 [facility] Comment on above: Performed By: #### L 100.0100, L500.4050, L501.2450 ####[facility] [address] [place], [address] Platelet mean volume (Bld) [Entitic vol] 11.3 fL Normal 6.2-12.0 [facility] Comment on above: Performed By: #### L 100.0100, L500.4050, L501.2450 ####[facility] [address] [place], [address] Platelets (Bld) [#/Vol] 377 10*3/uL Normal 150-450 [facility] Comment on above: Performed By: #### L 100.0100, L500.4050, L501.2450 ####[facility] [address] [place], [address] RBC (Bld) [#/Vol] 4.44 10*6/uL Normal 4.2-5.4 [facility] Comment on above: Performed By: #### L 100.0100, L500.4050, L501.2450 ####[facility] [address] [place], [address] RDW SD 43.0 fl Normal 35.1-43.9 [facility] Comment on above: Performed By: #### L 100.0100, L500.4050, L501.2450 ####[facility] [address] [place], [address] WBC (Bld) [#/Vol] 10.9 10*3/uL Normal 4.4-11.0 [facility] Comment on above: Performed By: #### L 100.0100, L500.4050, L501.2450 ####[facility] [address] [place], [address] Comprehensive Metabolic Prof ilon 03-01-2024 Albumin [Mass/Vol] 3.5 g/dL Normal 3.2-5.0 [facility] Comment on above: Performed By: #### L 100.0100, L500.4050, L501.2450 ####[facility] [address] [place], [address] Albumin/Globulin [Mass ratio] 0.8 {ratio} Low 0.9-2.4 [facility] Comment on above: Performed By: #### L 100.0100, L500.4050, L501.2450 ####[facility] [address] [place], [address] ALK P 91 U/L Normal 45-117 [facility] Comment on above: Performed By: #### L 100.0100, L500.4050, L501.2450 ####[facility] [address] [place], [address] ALT [Catalytic activity/Vol] 49 U/L Normal 13-56 [facility] Comment on above: Performed By: #### L 100.0100, L500.4050, L501.2450 ####[facility] [address] [place], [address] AST [Catalytic activity/Vol] 28 U/L Normal 15-37 [facility] Comment on above: Performed By: #### L 100.0100, L500.4050, L501.2450 ####[facility] [address] [place], [address] Bilirubin [Mass/Vol] 0.70 mg/dL Normal 0.20-1.00 [facility] Comment on above: Result Comment: For patients on eltrombopag therapy, use of Dimension Filion TBIL is not recommended. Performed By: #### L 100.0100, L500.4050, L501.2450 ####[facility] [address] [place], [address] BUN/CRE 13.6 RATIO Normal 10-20 [facility] Comment on above: Performed By: #### L 100.0100, L500.4050, L501.2450 ####[facility] [address] [place], [address] CA,Total 9.3 mg/dL Normal 8.5-10.1 [facility] Comment on above: Performed By: #### L 100.0100, L500.4050, L501.2450 ####[facility] [address] [place], [address] Chloride [Moles/Vol] 105 mmol/L Normal 98-107 [facility] Comment on above: Performed By: #### L 100.0100, L500.4050, L501.2450 ####[facility] [address] [place], [address] CO2 [Moles/Vol] 27.0 mmol/L Normal 21.0-32.0 [facility] Comment on above: Performed By: #### L 100.0100, L500.4050, L501.2450 ####[facility] [address] [place], [address] Creatinine [Mass/Vol] 0.81 mg/dL Normal 0.55-1.02 [facility] Comment on above: Result Comment: The validity of the calculated GFR GFRAA in patients over 70 years has not been determined. Clinical correlation is essential. Performed By: #### L 100.0100, L500.4050, L501.2450 ####[facility] [address] [place], [address] EST GFR - AA 93 mL/min Normal >60 [facility] Comment on above: Result Comment: Afri can Georgian GFR Calc Performed By: #### L 100.0100, L500.4050, L501.2450 ####[facility] [address] [place], [address] GAP 6 Normal 5-15 [facility] Comment on above: Performed By: #### L 100.0100, L500.4050, L501.2450 ####[facility] [address] [place], [address] GFR/1.73 sq M.predicted among non-blacks MDRD (S/P/Bld) [Vol rate/Area] 77 mL/min/{1.73_m2} Normal >60 [facility] Comment on above: Result Comment: Non- GFR Calc Performed By: #### L 100.0100, L500.4050, L501.2450 ####[facility] [address] [place], [address] Globulin (S) [Mass/Vol] 4.3 g/dL High 2.2-4.2 [facility] Comment on above: Performed By: #### L 100.0100, L500.4050, L501.2450 ####[facility] [address] [place], [address] Glucose [Mass/Vol] 121 mg/dL High 74-106 [facility] Comment on above: Result Comment: Fast ing Glucose result from 100 to 125 mg/dL suggests IMPAIRED HOMEOSTASIS per A.D.A. criteria. Performed By: #### L 100.0100, L500.4050, L501.2450 ####[facility] [address] [place], [address] Potassium [Moles/Vol] 3.6 mmol/L Normal 3.5-5.1 [facility] Comment on above: Performed By: #### L 100.0100, L500.4050, L501.2450 ####[facility] [address] [place], [address] Sodium [Moles/Vol] 137 mmol/L Normal 136-145 [facility] Comment on above: Performed By: #### L 100.0100, L500.4050, L501.2450 ####[facility] [address] [place], [address] T PROT 7.8 g/dL Normal 6.4-8.2 [facility] Comment on above: Performed By: #### L 100.0100, L500.4050, L501.2450 ####[facility] [address] [place], [address] Urea nitrogen [Mass/Vol] 11 mg/dL Normal 7-18 [facility] Comment on above: Performed By: #### L 100.0100, L500.4050, L501.2450 ####[facility] [address] [place], [address] Lipaseon 03-01-2024 Lipase [Catalytic activity/Vol] 33 U/L Normal 13-75 [facility] Comment on above: Result Comment: Kris samano note: LIPASE revised reference range effective 22. New Lipase methodology. Expected to produce lower values than the previous assay method. NEW Reference Range: 13 - 75 U/L Performed By: #### L 100.0100, L500.4050, L501.2450 ####[facility] [address] [place], [address] Office Visiton 03-01-2024 Follow-up visit [id number] Elvis Holder 1965 F Date Provider Department Center 03/01/2024 [id number] JOSHUA [facility] Family History Problem Relation Age of Onset Diabetes Mother Comments: insulin Other Mother Comments: age 62 of complications of PUD - etohism Crohn's disease Mother Alcohol abuse Mother Osteoporosis Mother Atrial fibrillation Father Comments: CHF High Blood Pressure Father Colon cancer Father 80 Comments: age 87 Family Status - Relation Status Age at Mother 62 Father 62 Level of Service:49286 HI OFFICE/OUTPATIENT ESTABLISHED LOW MDM 20 MIN Reason for Visit and Comments: Abdominal Pain [499181] - Middle upper abdominal pain Flu Vaccine [189] - Patient has declined the flu vaccine Normal [facility] Progress Noteon 03-01-2024 Progress Note [facility] [address] [facility] [address] Dept: [phone] Dept Loc: [phone] Visit type: Established Patient Reason for Visit: [...] discharge spotting bleeding. 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 Normal [facility] 36on 02-29-2024 36 S: Patient called [facility] access [place] with complaint of middle upper abdominal pain [...] years old Protocols used: Abdominal Pain - [id number] [facility] 36on 02-16-2024 36 noted [facility] 36 Name of caller: Phyllis Contact phone number: [phone], option 1 Relationship to Patient: [facility] Scheduling Provider: Bjorn Tejada PA-C Practice: [facility] Chief Complaint/Reason for Call: Phyllis states another order for sleep study and PFT was received on 02/09/24 from [address] Dr. Deleon, and that [facility] will be using this new order and will forward patient results to the office. Please be advised. Best time of day caller can be reached: Any Patient advised that office/PCP has 24-48 business hours to return their call: Yes [place] [address]on 01-14-2024 36 Faxed signed orders to number provided. [facility] 36on 01-13-2024 36 Forwarding to you, i f this needs routed else where please let me know. [facility] 36 Name of caller: Denise zazueta Contact phone number: [phone] option 1 Relationship to Patient: [facility] scheduling Provider: Reynaldo Practice: [facility] Chief Complaint/Reason for Call: Tracie with [facility] scheduling called received to orders for Sleep [...] business hours to return their call: N/A [facility] Bacteria identified Cx Nom ( U)on 01-07-2024 [facility] Urine culture (clean catch)o n 01-07-2024 Bacteria identified Cx Nom (U) SEE NOTE [facility] Comment on above: CULTURE, URINE, ROUTINE Micro Number: [id number] Test Status: Final Specimen Source: Urine Specimen Quality: Adequate Result: Mixed genital jaylin isolated. These superficial bacteria are not indicative of a urinary tract infection. No further organism identification is warranted on this specimen. If clinically indicated, recollect clean-catch, mid-stream urine and transfer immediately to Urine Culture Transport Tube. 29on 01-05-2024 29 Addended by: ALONSO RATLIFF on: 03/17/2024 11:53 AM Modules accepted: Orders [facility] Office Visiton 01-05-2024 Follow-up visit [id number] Elvis Holder 1965 F Date Provider Department Center 01/05/2024 [id number] TEJADA [facility] Family History Problem Relation Age of Onset Diabetes Mother Comments: insulin Other Mother Comments: age 62 of complications of PUD - etohism Crohn's disease Mother Alcohol abuse Mother Osteoporosis Mother Atrial fibrillation Father Comments: CHF High Blood Pressure Father Colon cancer Father 80 Comments: age 87 Family Status - Relation Status Age at Mother 62 Father 62 Level of Service:34583 HI OFFICE/OUTPATIENT ESTABLISHED HIGH MDM 40 MIN Reason for Visit and Comments: Annual Exam [83] Flu Vaccine [189] - Patient has declined to receive influenza vaccine in the office. Normal [facility] Progress Noteon 01-05-2024 Progress Note - Chronic and unstab le was put on approximate 20 pounds over the last several years encouraged exercise activity and returning to [employer] increasing activity levels throughout the week will help with anxiety as well as help with sleep. Normal [facility] Progress Note - Acute unstable suspect multifactorial in nature possible stress versus GERD versus sleep apnea will use trazodone on an as-needed basis. Normal [facility] Progress Note - Chronic and stable current uric acid level 7.8 will begin allopurinol history of kidney stones and polyarthralgias. Normal [facility] Progress Note - Chronic and stable generalized and diffuse flareup requesting refill of Kenalog cream. Normal [facility] Progress Note [facility] [address] [facility] [address] Dept: [phone] Dept Loc: [phone] Visit type: Established Patient Reason for Visit: [...] tablet (100 mg) by mouth daily., Starting 01/05/2024, Until 07/03/2024, Normal 4. Urinary frequency Comments: Recent urinalysis [...] years encouraged exercise activity and returning to [employer] increasing activity levels throughout the week will [...] Take b (more content not included)... Normal [facility] CBC, Employeeon 01-01-2024 Absolute Lymph 3.42 X10 3/uL Normal 0.83-4.51 [facility] Comment on above: Order Comment: Y Performed By: #### L 400.0100, L500.2900, L100.0200 #### [facility] [address] [place], [address] Absolute Neut 9.8 X10 3/uL High 2.0-7.7 [facility] Comment on above: Order Comment: Y Performed By: #### L 400.0100, L500.2900, L100.0200 #### [facility] [address] [place], [address] Basophils/100 WBC (Bld) 0.6 % Normal 0-1 [facility] Comment on above: Order Comment: Y Performed By: #### L 400.0100, L500.2900, L100.0200 #### [facility] [address] [place], [address] Eosinophils/100 WBC (Bld) 1.9 % Normal 0-5 [facility] Comment on above: Order Comment: Y Performed By: #### L 400.0100, L500.2900, L100.0200 #### [facility] [address] [place], [address] Erythrocyte distribution width (RBC) [Ratio] 12.8 % Normal 11.6-14.6 [facility] Comment on above: Order Comment: Y Performed By: #### L 400.0100, L500.2900, L100.0200 #### [facility] [address] [place], [address] Hematocrit (Bld) [Volume fraction] 41.7 % Normal 37-47 [facility] Comment on above: Order Comment: Y Performed By: #### L 400.0100, L500.2900, L100.0200 #### [facility] [address] [place], [address] Hemoglobin (Bld) [Mass/Vol] 13.5 g/dL Normal 12.0-15.0 [facility] Comment on above: Order Comment: Y Performed By: #### L 400.0100, L500.2900, L100.0200 #### [facility] [address] [place], [address] Lymphocytes/100 WBC (Bld) 23.8 % Normal 19-41 [facility] Comment on above: Order Comment: Y Performed By: #### L 400.0100, L500.2900, L100.0200 #### [facility] [address] [place], [address] MCH (RBC) [Entitic mass] 29.8 pg Normal 27.0-32.0 [facility] Comment on above: Order Comment: Y Performed By: #### L 400.0100, L500.2900, L100.0200 #### [facility] [address] [place], [address] MCHC (RBC) [Mass/Vol] 32.4 g/dL Normal 32-36 [facility] Comment on above: Order Comment: Y Performed By: #### L 400.0100, L500.2900, L100.0200 #### [facility] [address] [place], [address] MCV (RBC) [Entitic vol] 92.1 fL Normal 81-99 [facility] Comment on above: Order Comment: Y Performed By: #### L 400.0100, L500.2900, L100.0200 #### [facility] [address] [place], [address] Monocytes/100 WBC (Bld) 5.1 % Normal 0-10 [facility] Comment on above: Order Comment: Y Performed By: #### L 400.0100, L500.2900, L100.0200 #### [facility] [address] [place], [address] Neutrophils/100 WBC (Bld) 68.3 % Normal 47-70 [facility] Comment on above: Order Comment: Y Performed By: #### L 400.0100, L500.2900, L100.0200 #### [facility] [address] [place], [address] NRBC # 0.00 10 3/uL Normal 0-5 [facility] Comment on above: Order Comment: Y Performed By: #### L 400.0100, L500.2900, L100.0200 #### [facility] [address] [place], [address] Nucleated RBC (Bld) [#/Vol] 0 10*3/uL Normal 0-5 [facility] Comment on above: Order Comment: Y Performed By: #### L 400.0100, L500.2900, L100.0200 #### [facility] [address] [place], [address] Platelet mean volume (Bld) [Entitic vol] 11.9 fL Normal 6.2-12.0 [facility] Comment on above: Order Comment: Y Performed By: #### L 400.0100, L500.2900, L100.0200 #### [facility] [address] [place], [address] Platelets (Bld) [#/Vol] 371 10*3/uL Normal 150-450 [facility] Comment on above: Order Comment: Y Performed By: #### L 400.0100, L500.2900, L100.0200 #### [facility] [address] [place], [address] RBC (Bld) [#/Vol] 4.53 10*6/uL Normal 4.2-5.4 [facility] Comment on above: Order Comment: Y Performed By: #### L 400.0100, L500.2900, L100.0200 #### [facility] [address] [place], [address] RDW SD 43.1 fl Normal 35.1-43.9 [facility] Comment on above: Order Comment: Y Performed By: #### L 400.0100, L500.2900, L100.0200 #### [facility] [address] [place], [address] WBC (Bld) [#/Vol] 14.4 10*3/uL High 4.4-11.0 [facility] Comment on above: Order Comment: Y Performed By: #### L 400.0100, L500.2900, L100.0200 #### [facility] [address] [place], [address] [employer] 4 Albumin [Mass/Vol] 3.5 g/dL Normal 3.2-5.0 [facility] Comment on above: Order Comment: Y Performed By: #### L 400.0100, L500.2900, L100.0200 #### [facility] [address] [place], [address] Albumin/Globulin [Mass ratio] 0.9 {ratio} Normal 0.9-2.4 [facility] Comment on above: Order Comment: Y Performed By: #### L 400.0100, L500.2900, L100.0200 #### [facility] [address] [place], [address] ALK P 94 U/L Normal 45-117 [facility] Comment on above: Order Comment: Y Performed By: #### L 400.0100, L500.2900, L100.0200 #### [facility] [address] [place], [address] ALT [Catalytic activity/Vol] 55 U/L Normal 13-56 [facility] Comment on above: Order Comment: Y Performed By: #### L 400.0100, L500.2900, L100.0200 #### [facility] [address] [place], [address] AST [Catalytic activity/Vol] 23 U/L Normal 15-37 [facility] Comment on above: Order Comment: Y Performed By: #### L 400.0100, L500.2900, L100.0200 #### [facility] [address] [place], [address] Bilirubin [Mass/Vol] 0.80 mg/dL Normal 0.20-1.00 [facility] Comment on above: Order Comment: Y Result Comment: For patients on eltrombopag therapy, use of Dimension Filion TBIL is not recommended. Performed By: #### L 400.0100, L500.2900, L100.0200 #### [facility] [address] [place], [address] Bilirubin.direct [Mass/Vol] 0.19 mg/dL Normal 0.00-0.30 [facility] Comment on above: Order Comment: Y Performed By: #### L 400.0100, L500.2900, L100.0200 #### [facility] [address] [place], [address] BUN/CRE 18.1 RATIO Normal 10-20 [facility] Comment on above: Order Comment: Y Performed By: #### L 400.0100, L500.2900, L100.0200 #### [facility] [address] [place], [address] CA,Total 8.9 mg/dL Normal 8.5-10.1 [facility] Comment on above: Order Comment: Y Performed By: #### L 400.0100, L500.2900, L100.0200 #### [facility] [address] [place], [address] Chloride [Moles/Vol] 107 mmol/L Normal 98-107 [facility] Comment on above: Order Comment: Y Performed By: #### L 400.0100, L500.2900, L100.0200 #### [facility] [address] [place], [address] CHOL:HDL 3.10 Normal [facility] Comment on above: Order Comment: Y Performed By: #### L 400.0100, L500.2900, L100.0200 #### [facility] [address] [place], [address] Cholesterol [Mass/Vol] 141 mg/dL Normal 200 [facility] Comment on above: Order Comment: Y Result Comment: <200 mg/dL Desirable 200-240 mg/dL Borderline >240 mg/dL High Risk Performed By: #### L 400.0100, L500.2900, L100.0200 #### [facility] [address] [place], [address] Cholesterol in HDL [Mass/Vol] 46 mg/dL Normal [facility] Comment on above: Order Comment: Y Result Comment: The drugs N-Acetylcysteine and Metamizole may falsely depress this assay. Reference Range HDL <40 mg/dL Low HDL Cholesterol HDL >or= 60 mg/dL High HDL Cholesterol Performed By: #### L 400.0100, L500.2900, L100.0200 #### [facility] [address] [place], [address] Cholesterol in LDL [Mass/Vol] 67 mg/dL Normal 0-130 [facility] Comment on above: Order Comment: Y Performed By: #### L 400.0100, L500.2900, L100.0200 #### [facility] [address] [place], [address] Cholesterol in VLDL [Mass/Vol] 28 mg/dL Normal 5-40 [facility] Comment on above: Order Comment: Y Performed By: #### L 400.0100, L500.2900, L100.0200 #### [facility] [address] [place], [address] CO2 [Moles/Vol] 24.0 mmol/L Normal 21.0-32.0 [facility] Comment on above: Order Comment: Y Performed By: #### L 400.0100, L500.2900, L100.0200 #### [facility] [address] [place], [address] Creatinine [Mass/Vol] 0.83 mg/dL Normal 0.55-1.02 [facility] Comment on above: Order Comment: Y Result Comment: The validity of the calculated GFR GFRAA in patients over 70 years has not been determined. Clinical correlation is essential. Performed By: #### L 400.0100, L500.2900, L100.0200 #### [facility] [address] [place], [address] EST GFR - AA 91 mL/min Normal >60 [facility] Comment on above: Order Comment: Y Result Comment: Afri can Georgian GFR Calc Performed By: #### L 400.0100, L500.2900, L100.0200 #### [facility] [address] [place], [address] GAP 8 Normal 5-15 [facility] Comment on above: Order Comment: Y Performed By: #### L 400.0100, L500.2900, L100.0200 #### [facility] [address] [place], [address] GFR/1.73 sq M.predicted among non-blacks MDRD (S/P/Bld) [Vol rate/Area] 75 mL/min/{1.73_m2} Normal >60 [facility] Comment on above: Order Comment: Y Result Comment: Non- GFR Calc Performed By: #### L 400.0100, L500.2900, L100.0200 #### [facility] [address] [place], [address] Globulin (S) [Mass/Vol] 4.0 g/dL Normal 2.2-4.2 [facility] Comment on above: Order Comment: Y Performed By: #### L 400.0100, L500.2900, L100.0200 #### [facility] [address] [place], [address] Glucose [Mass/Vol] 110 mg/dL High 74-106 [facility] Comment on above: Order Comment: Y Result Comment: Fast ing Glucose result from 100 to 125 mg/dL suggests IMPAIRED HOMEOSTASIS per A.D.A. criteria. Performed By: #### L 400.0100, L500.2900, L100.0200 #### [facility] [address] [place], [address] LDH 104 U/L Normal 84-246 [facility] Comment on above: Order Comment: Y Performed By: #### L 400.0100, L500.2900, L100.0200 #### [facility] [address] [place], [address] Phosphate [Mass/Vol] 3.4 mg/dL Normal 2.5-4.9 [facility] Comment on above: Order Comment: Y Performed By: #### L 400.0100, L500.2900, L100.0200 #### [facility] [address] [place], [address] Potassium [Moles/Vol] 3.8 mmol/L Normal 3.5-5.1 [facility] Comment on above: Order Comment: Y Performed By: #### L 400.0100, L500.2900, L100.0200 #### [facility] [address] [place], [address] Sodium [Moles/Vol] 139 mmol/L Normal 136-145 [facility] Comment on above: Order Comment: Y Performed By: #### L 400.0100, L500.2900, L100.0200 #### [facility] [address] [place], [address] T PROT 7.5 g/dL Normal 6.4-8.2 [facility] Comment on above: Order Comment: Y Performed By: #### L 400.0100, L500.2900, L100.0200 #### [facility] [address] [place], [address] Triglyceride [Mass/Vol] 139 mg/dL Normal [facility] Comment on above: Order Comment: Y Result Comment: The drugs N-Acetylcysteine and Metamizole may falsely depress this assay. Serum Triglycerides Reference Interval Normal <150 mg/dL Borderline high 150 - 199 mg/dL High 200 - 499 mg/dL Very High > or = 500 mg/dL Performed By: #### L 400.0100, L500.2900, L100.0200 #### [facility] [address] [place], [address] Urea nitrogen [Mass/Vol] 15 mg/dL Normal 7-18 [facility] Comment on above: Order Comment: Y Performed By: #### L 400.0100, L500.2900, L100.0200 #### [facility] [address] [place], [address] URIC 7.8 mg/dL High 2.6-6.0 [facility] Comment on above: Order Comment: Y Result Comment: The drugs N-Acetylcysteine and Metamizole may falsely depress this assay. Performed By: #### L 400.0100, L500.2900, L100.0200 #### [facility] [address] [place], [address] Urinalysis, Employeeon 12-31 BILIRUBIN URINE Negative Normal Negative [facility] Comment on above: Order Comment: Y Urine, Random Performed By: #### L 400.0100, L500.2900, L100.0200 #### [facility] [address] [place], [address] Clarity (U) Sl. Cloudy Normal Clear [facility] Comment on above: Order Comment: Y Urine, Random Performed By: #### L 400.0100, L500.2900, L100.0200 #### [facility] [address] [place], [address] Color (U) Yellow Normal Yellow [facility] Comment on above: Order Comment: Y Urine, Random Performed By: #### L 400.0100, L500.2900, L100.0200 #### [facility] [address] [place], [address] GLUCOSE, UR Normal Normal Normal [facility] Comment on above: Order Comment: Y Urine, Random Performed By: #### L 400.0100, L500.2900, L100.0200 #### [facility] [address] [place], [address] KETONE UR Negative Normal Negative [facility] Comment on above: Order Comment: Y Urine, Random Performed By: #### L 400.0100, L500.2900, L100.0200 #### [facility] [address] [place], [address] LEUK ESTERASE 100 /ul Abnormal Negative [facility] Comment on above: Order Comment: Y Urine, Random Performed By: #### L 400.0100, L500.2900, L100.0200 #### [facility] [address] [place], [address] Nitrite Ql (U) Negative Normal Negative [facility] Comment on above: Order Comment: Y Urine, Random Performed By: #### L 400.0100, L500.2900, L100.0200 #### [facility] [address] [place], [address] OCCULT BLOOD-UR 50 /ul Abnormal Negative [facility] Comment on above: Order Comment: Y Urine, Random Performed By: #### L 400.0100, L500.2900, L100.0200 #### [facility] [address] [place], [address] pH UR 6.0 Normal 5.0 - 8.0 [facility] Comment on above: Order Comment: Y Urine, Random Performed By: #### L 400.0100, L500.2900, L100.0200 #### [facility] [address] [place], [address] PROT DIPSTX Negative Normal Negative [facility] Comment on above: Order Comment: Y Urine, Random Performed By: #### L 400.0100, L500.2900, L100.0200 #### [facility] [address] [place], [address] SP.GR. DIPSTX 1.015 Normal 1.002-1.030 [facility] Comment on above: Order Comment: Y Urine, Random Performed By: #### L 400.0100, L500.2900, L100.0200 #### [facility] [address] [place], [address] UROBILI Normal Normal Normal [facility] Comment on above: Order Comment: Y Urine, Random Performed By: #### L 400.0100, L500.2900, L100.0200 #### [facility] [address] [place], [address] Progress Noteon 11-10-2023 Progress Note [facility] [address] [place] [address] [address] [facility] [address] Dept: [phone] Dept Loc: [phone] Patient was identified and seen today via [...] that they are currently in the state [facility]. If the patient is a minor, permission [...] of breath, body aches, fever, and diarrhea. Subjective Jen Holder is a 58 y.o. who presents [...] medication refills, see below for orders. Rolando Anders Lin, DO 11/10/2023 10:34 PM [facility] 36on 11-09-2023 36 S: Patient spoke wit h CAC nurse regarding cough and congestion, COVID [...] fever) (Exceptions: Already seen by doctor or RF MANAGER/PA and no new or worsening symptoms.) Protocols used: Coronavirus (COVID-19) [facility]osed [facility] Absolute lymphocyte countOrd ered By: HEALTH ASSESSMENT on 11-15-2022 Lymphocytes Auto (Unsp spec) [#/Vol] 2.97 10*3/uL 0.83-4.51 [facility] Absolute reticulocyte countO rdered By: HEALTH ASSESSMENT on 11-15-2022 Reticulocytes (Bld) [#/Vol] 0.00 10*3/uL 0-5 [facility] Basophil percentageOrdered B y: HEALTH ASSESSMENT on 11-15-2022 Basophil percentage 3.6 mg/dL 2.5-4.9 [facility] Bilirubin [Mass/Vol] 0.40 mg/dL 0.20-1.00 [facility] Comment on above: For patients on eltr ombopag therapy, use of Dimension Filion TBIL is not recommended. Chloride [Moles/Vol] 105 mmol/L 98-107 [facility] Cholesterol [Mass/Vol] 149 mg/dL <200 [facility] Comment on above: <200 mg/dL Desirable 200-240 mg/dL Borderline >240 mg/dL High Risk Glucose [Mass/Vol] 99 mg/dL 74-106 [facility] LDH [Catalytic activity/Vol] 137 U/L 84-246 [facility] Neutrophils (Bld) [#/Vol] 6.6 10*3/uL 2.0-7.7 [facility] Potassium [Moles/Vol] 4.0 mmol/L 3.5-5.1 [facility] Protein [Mass/Vol] 7.4 g/dL 6.4-8.2 [facility] Sodium [Moles/Vol] 137 mmol/L 136-145 [facility] Triglyceride [Mass/Vol] 127 mg/dL <199 [facility] Comment on above: The drugs N-Acetylcy steine and Metamizole may falsely depress this assay.Serum Triglycerides Reference Interval Normal <150 mg/dL Borderline high 150 - 199 mg/dL High 200 - 499 mg/dL Very High > or = 500 mg/dL WBC (Bld) [#/Vol] 10.6 10*3/uL 4.4-11.0 [facility] Bilirubin Test strip Ql (U)O rdered By: HEALTH ASSESSMENT on 11-15-2022 Bilirubin Ql (U) Negative Negative [facility] Blood erythrocytes count (nu mber/volume)Ordered By: HEALTH ASSESSMENT on 11-15-2022 RBC (Bld) [#/Vol] 4.22 10*6/uL 4.2-5.4 [facility] Blood hemoglobin measurement (mass/volume)Ordered By: HEALTH ASSESSMENT on 11-15-2022 Hemoglobin (Bld) [Mass/Vol] 12.6 g/dL 12.0-15.0 [facility] Blood platelet mean volumeOr dered By: HEALTH ASSESSMENT on 11-15-2022 Platelet mean volume (Bld) [Entitic vol] 12.0 fL 6.2-12.0 [facility] Determination of erythrocyte mean corpuscular volume (MCV)Ordered By: HEALTH ASSESSMENT on 11-15-2022 MCV (RBC) [Entitic vol] 94.1 fL 81-99 [facility] Direct bilirubinOrdered By: HEALTH ASSESSMENT on 11-15-2022 Bilirubin.direct [Mass/Vol] 0.09 mg/dL 0.00-0.30 [facility] Hematocrit Auto (Bld) [Volum e fraction]Ordered By: HEALTH ASSESSMENT on 11-15-2022 Hematocrit (Bld) [Volume fraction] 39.7 % 37-47 [facility] Ketones Test strip Ql (U)Ord ered By: HEALTH ASSESSMENT on 11-15-2022 Ketones Ql (U) Negative Negative [facility] - Chemistry and C hemistry - challengeOrdered By: HEALTH ASSESSMENT on 11-15-2022 ALP [Catalytic activity/Vol] 91 U/L 45-117 [facility] ALT [Catalytic activity/Vol] 41 U/L 13-56 [facility] Cholesterol.total/Iveth sterol in HDL [Mass ratio] 3.20 {ratio} [facility] CO2 [Moles/Vol] 22.0 mmol/L 21.0-32.0 [facility] Globulin (S) [Mass/Vol] 3.9 g/dL 2.2-4.2 [facility] Urea nitrogen/Creatinine [Mass ratio] 23.1 mg/mg 10-20 [facility] - Hematology and Cell countsOrdered By: HEALTH ASSESSMENT on 11-15-2022 Erythrocyte distribution width (RBC) [Entitic vol] 43.8 fL 35.1-43.9 [facility] Erythrocyte distribution width (RBC) [Ratio] 12.8 % 11.6-14.6 [facility] MCH (RBC) [Entitic mass] 29.9 pg 27.0-32.0 [facility] Nucleated RBC/100 WBC (Bld) [Ratio] 0 % 0-5 [facility] MCHC Auto (RBC) [Mass/Vol]Or dered By: HEALTH ASSESSMENT on 11-15-2022 MCHC (RBC) [Mass/Vol] 31.7 g/dL 32-36 [facility] Nitrite Test strip Ql (U)Ord ered By: HEALTH ASSESSMENT on 11-15-2022 Nitrite Ql (U) Negative Negative [facility] No Panel InformationOrdered By: HEALTH ASSESSMENT on 11-15-2022 Estimated GFR (MDRD) Amer 98 mL/min >60 [facility] Comment on above: GFR Calc Estimated GFR (MDRD) Non-Af Amer 81 mL/min >60 [facility] Comment on above: Non- GFR Calc Platelets bldOrdered By: [facility] ASSESSMENT on 11-15-2022 Platelets (Bld) [#/Vol] 241 10*3/uL 150-450 [facility] Protein Test strip Ql (U)Ord ered By: HEALTH ASSESSMENT on 11-15-2022 Protein Ql (U) Negative Negative [facility] Segmented neutrophils/100 WB C Auto (Bld)Ordered By: HEALTH ASSESSMENT on 11-15-2022 Segmented neutrophils/100 WBC (Bld) 62.3 % 47-70 [facility] Serum or plasma albumin purnima urement (mass/volume)Ordered By: HEALTH ASSESSMENT on 11-15-2022 Albumin [Mass/Vol] 3.5 g/dL 3.2-5.0 [facility] Serum or plasma albumin/glob ulin mass ratioOrdered By: HEALTH ASSESSMENT on 11-15-2022 Albumin/Globulin [Mass ratio] 0.9 {ratio} 0.9-2.4 [facility] Serum or plasma calcium purnima urement (mass/volume)Ordered By: HEALTH ASSESSMENT on 11-15-2022 Calcium [Mass/Vol] 9.2 mg/dL 8.5-10.1 [facility] Serum or plasma cholesterol in HDL measurement (mass/volume)Ordered By: HEALTH ASSESSMENT on 11-15-2022 Cholesterol in HDL [Mass/Vol] 46 mg/dL >40 [facility] Comment on above: The drugs N-Acetylcy steine and Metamizole may falsely depress this assay. Reference Range HDL <40 mg/dL Low HDL Cholesterol HDL >or= 60 mg/dL High HDL Cholesterol Serum or plasma cholesterol in VLDL measurement (mass/volume)Ordered By: HEALTH ASSESSMENT on 11-15-2022 Cholesterol in VLDL [Mass/Vol] 25 mg/dL 5-40 [facility] Serum or plasma creatinine m easurement (mass/volume)Ordered By: HEALTH ASSESSMENT on 11-15-2022 Creatinine [Mass/Vol] 0.78 mg/dL 0.55-1.02 [facility] Comment on above: The validity of the calculated GFR & GFRAA in patients over 70 years has not been determined. Clinical correlation is essential. Serum or plasma low density lipoprotein (LDL) cholesterol measurement (mass/volume)Ordered By: HEALTH ASSESSMENT on 11-15-2022 Cholesterol in LDL [Mass/Vol] 78 mg/dL 0-130 [facility] Serum or plasma urea nitroge n measurement (mass/volume)Ordered By: HEALTH ASSESSMENT on 11-15-2022 Urea nitrogen [Mass/Vol] 18 mg/dL 7-18 [facility] Serum or plasma uric acid me asurement (mass/volume)Ordered By: HEALTH ASSESSMENT on 11-15-2022 Urate [Mass/Vol] 7.2 mg/dL 2.6-6.0 [facility] Comment on above: The drugs N-Acetylcy steine and Metamizole may falsely depress this assay. Thin prep Papanicolaou smear with manual screeningOrdered By: HEALTH ASSESSMENT on 11-15-2022 Thin prep Papanicolaou smear with manual screening 22 U/L 15-37 [facility] Thin prep Papanicolaou smear with manual screening 10 5-15 [facility] Urine blood detectionOrdered By: HEALTH ASSESSMENT on 11-15-2022 RBC Ql (U) 10 /ul Negative [facility] Urine clarityOrdered By: A LT ASSESSMENT on 11-15-2022 Clarity (U) Clear Clear [facility] Urine color determinationOrd ered By: HEALTH ASSESSMENT on 11-15-2022 Color (U) Yellow Yellow [facility] Urine glucose detectionOrder ed By: HEALTH ASSESSMENT on 11-15-2022 Glucose Ql (U) Normal mg/dl Normal [facility] Urine leukocyte esterase det ection by dipstickOrdered By: HEALTH ASSESSMENT on 11-15-2022 Leukocyte esterase Test strip Ql (U) Negative Negative [facility] Urine pHOrdered By: HEALTH A SSESSMENT on 11-15-2022 pH (U) 6.5 [pH] 5.0 - 8.0 [facility] Urine specific gravity measu rementOrdered By: HEALTH ASSESSMENT on 11-15-2022 Specific gravity (U) [Rel density] 1.015 1.002-1.030 [facility] Urobilinogen Auto test strip Ql (U)Ordered By: HEALTH ASSESSMENT on 11-15-2022 Urobilinogen Ql (U) Normal mg/dl Normal [facility] - Microbiology an d Antimicrobial susceptibilityon 03-21-2022 SARS-CoV-2 (COVID-19) RNA BRISA+probe Ql (Unsp spec) Not detected [facility] Absolute lymphocyte counton 12-03-2021 Lymphocytes Auto (Unsp spec) [#/Vol] 2.53 10*3/uL 0.83-4.51 [facility] Work Phone: Absolute reticulocyte counto n 12-03-2021 Reticulocytes (Bld) [#/Vol] 0.00 10*3/uL 0-5 [facility] Work Phone: Basophil percentageon 2021 Basophil percentage 3.5 mg/dL 2.5-4.9 [facility] Work Phone: Bilirubin [Mass/Vol] 0.70 mg/dL 0.20-1.00 [facility] Work Phone: Comment on above: For patients on eltr ombopag therapy, use of Dimension Filion TBIL is not recommended. Chloride [Moles/Vol] 107 mmol/L 98-107 [facility] Work Phone: Cholesterol [Mass/Vol] 189 mg/dL <200 [facility] Work Phone: Comment on above: <200 mg/dL Desirable 200-240 mg/dL Borderline >240 mg/dL High Risk Glucose [Mass/Vol] 99 mg/dL 74-106 [facility] Work Phone: Neutrophils (Bld) [#/Vol] 4.6 10*3/uL 2.0-7.7 [facility] Work Phone: Potassium [Moles/Vol] 4.1 mmol/L 3.5-5.1 [facility] Work Phone: Protein [Mass/Vol] 7.7 g/dL 6.4-8.2 [facility] Work Phone: Sodium [Moles/Vol] 139 mmol/L 136-145 [facility] Work Phone: Triglyceride [Mass/Vol] 107 mg/dL <199 [facility] Work Phone: Comment on above: The drugs N-Acetylcy steine and Metamizole may falsely depress this assay.Serum Triglycerides Reference Interval Normal <150 mg/dL Borderline high 150 - 199 mg/dL High 200 - 499 mg/dL Very High > or = 500 mg/dL WBC (Bld) [#/Vol] 7.9 10*3/uL 4.4-11.0 [facility] Work Phone: Bilirubin Test strip Ql (U)o n 12-03-2021 Bilirubin Ql (U) Negative Negative [facility] Work Phone: Blood erythrocytes count (nu mber/volume)on 12-03-2021 RBC (Bld) [#/Vol] 4.23 10*6/uL 4.2-5.4 [facility] Work Phone: Blood hemoglobin measurement (mass/volume)on 12-03-2021 Hemoglobin (Bld) [Mass/Vol] 13.0 g/dL 12.0-15.0 [facility] Work Phone: Blood platelet mean volumeon 12-03-2021 Platelet mean volume (Bld) [Entitic vol] 11.3 fL 6.2-12.0 [facility] Work Phone: Determination of erythrocyte mean corpuscular volume (MCV)on 12-03-2021 MCV (RBC) [Entitic vol] 94.8 fL 81-99 [facility] Work Phone: Direct bilirubinon Bilirubin.direct [Mass/Vol] 0.14 mg/dL 0.00-0.30 [facility] Work Phone: [phone] Hematocrit Auto (Bld) [Volum e fraction]on 12-03-2021 Hematocrit (Bld) [Volume fraction] 40.1 % 37-47 [facility] Work Phone: [phone] Ketones Test strip Ql (U)on 12-03-2021 Ketones Ql (U) Negative Negative [facility] Work Phone: [phone] Laboratory - Chemistry and C hemistry - challengeon 12-03-2021 ALP [Catalytic activity/Vol] 94 U/L 45-117 [facility] Work Phone: ALT [Catalytic activity/Vol] 36 U/L 13-56 [facility] Work Phone: [phone] Cholesterol.total/Iveth sterol in HDL [Mass ratio] 2.90 {ratio} [facility] Work Phone: CO2 [Moles/Vol] 25.0 mmol/L 21.0-32.0 [facility] Work Phone: Globulin (S) [Mass/Vol] 3.8 g/dL 2.2-4.2 [facility] Work Phone: [phone] Urea nitrogen/Creatinine [Mass ratio] 22.4 mg/mg 10-20 [facility] Work Phone: [phone] Laboratory - Hematology and Cell countson 12-03-2021 Erythrocyte distribution width (RBC) [Entitic vol] 42.6 fL 35.1-43.9 [facility] Work Phone: [phone] Erythrocyte distribution width (RBC) [Ratio] 12.3 % 11.6-14.6 [facility] Work Phone: [phone] MCH (RBC) [Entitic mass] 30.7 pg 27.0-32.0 [facility] Work Phone: [phone] Nucleated RBC/100 WBC (Bld) [Ratio] 0 % 0-5 [facility] Work Phone: [phone] MCHC Auto (RBC) [Mass/Vol]on 12-03-2021 MCHC (RBC) [Mass/Vol] 32.4 g/dL 32-36 [facility] Work Phone: Nitrite Test strip Ql (U)on 12-03-2021 Nitrite Ql (U) Negative Negative [facility] Work Phone: [phone] No Panel Informationon 12-03 Estimated GFR (MDRD) Amer 101 mL/min >60 [facility] Work Phone: [phone] Comment on above: GFR Calc Estimated GFR (MDRD) Non-Af Amer 84 mL/min >60 [facility] Work Phone: [phone] Comment on above: Non- GFR Calc Platelets bldon 12-03-2021 Platelets (Bld) [#/Vol] 344 10*3/uL 150-450 [facility] Work Phone: Protein Test strip Ql (U)on 12-03-2021 Protein Ql (U) Negative Negative [facility] Work Phone: Segmented neutrophils/100 WB C Auto (Bld)on 12-03-2021 Segmented neutrophils/100 WBC (Bld) 58.0 % 47-70 [facility] Work Phone: Serum or plasma albumin purnima urement (mass/volume)on 12-03-2021 Albumin [Mass/Vol] 3.9 g/dL 3.2-5.0 [facility] Work Phone: Serum or plasma albumin/glob ulin mass ratioon 12-03-2021 Albumin/Globulin [Mass ratio] 1.0 {ratio} 0.9-2.4 [facility] Work Phone: Serum or plasma calcium purnima urement (mass/volume)on 12-03-2021 Calcium [Mass/Vol] 9.6 mg/dL 8.5-10.1 [facility] Work Phone: Serum or plasma cholesterol in HDL measurement (mass/volume)on 12-03-2021 Cholesterol in HDL [Mass/Vol] 66 mg/dL >40 [facility] Work Phone: Comment on above: The drugs N-Acetylcy steine and Metamizole may falsely depress this assay. Reference Range HDL <40 mg/dL Low HDL Cholesterol HDL >or= 60 mg/dL High HDL Cholesterol Serum or plasma cholesterol in VLDL measurement (mass/volume)on 12-03-2021 Cholesterol in VLDL [Mass/Vol] 21 mg/dL 5-40 [facility] Work Phone: Serum or plasma creatinine m easurement (mass/volume)on 12-03-2021 Creatinine [Mass/Vol] 0.76 mg/dL 0.55-1.02 [facility] Work Phone: Comment on above: The validity of the calculated GFR & GFRAA in patients over 70 years has not been determined. Clinical correlation is essential. Serum or plasma low density lipoprotein (LDL) cholesterol measurement (mass/volume)on 12-03-2021 Cholesterol in LDL [Mass/Vol] 102 mg/dL 0-130 [facility] Work Phone: Serum or plasma urea nitroge n measurement (mass/volume)on 12-03-2021 Urea nitrogen [Mass/Vol] 17 mg/dL 7-18 [facility] Work Phone: [phone] Serum or plasma uric acid me asurement (mass/volume)on 12-03-2021 Urate [Mass/Vol] 6.0 mg/dL 2.6-6.0 [facility] Work Phone: Comment on above: The drugs N-Acetylcy steine and Metamizole may falsely depress this assay. Thin prep Papanicolaou smear with manual screeningon 12-03-2021 Thin prep Papanicolaou smear with manual screening 16 U/L 15-37 [facility] Work Phone: Thin prep Papanicolaou smear with manual screening 7 5-15 [facility] Work Phone: Thin prep Papanicolaou smear with manual screening 93 U/L 84-246 [facility] Work Phone: Urine blood detectionon 11-21 RBC Ql (U) 10 /ul Negative [facility] Work Phone: Urine clarityon 12-03-2021 Clarity (U) Sl. Cloudy Clear [facility] Work Phone: Urine color determinationon 12-03-2021 Color (U) Yellow Yellow [facility] Work Phone: Urine glucose detectionon Glucose Ql (U) Normal mg/dl Normal [facility] Work Phone: [phone] Urine leukocyte esterase det ection by dipstickon 12-03-2021 Leukocyte esterase Test strip Ql (U) 100 /ul Negative [facility] Work Phone: [phone] Urine pHon 12-03-2021 pH (U) 6.5 [pH] 5.0 - 8.0 [facility] Work Phone: [phone] Urine specific gravity measu rementon 12-03-2021 Specific gravity (U) [Rel density] 1.015 1.002-1.030 [facility] Work Phone: Urobilinogen Auto test strip Ql (U)on 12-03-2021 Urobilinogen Ql (U) Normal mg/dl Normal [facility] Work Phone: Copperon 02-15-2021 Copper 135 ug/dL Normal 85-[address] [facility] Comment on above: Result Comment: This test was developed and its performance characteristics determined by [facility] ([facility]). It has not been cleared or approved by the FDA. [facility] is regulated under CLIA as qualified to perform high complexity testing. This test is used for clinical purposes. It should not be regarded as investigational or for research. Performed By: #### I FESC, EVIT, COPPER, B1WB #### [place] [phone] #### VITB6 #### [facility] [address] [place] [id number] RAYMON Screen, Serumon 02-16-20 21 MPA Result No M protein is identified. Normal No M protein is identified. [facility] Comment on above: Performed By: #### I FESC, EVIT, COPPER, B1WB #### [place] [phone] #### VITB6 #### [facility] [address] [place], [place] [id number] Staff Review Reviewed by Amanda Arzate MD ([id number]) Normal [facility] Comment on above: Performed By: #### I FESC, EVIT, COPPER, B1WB #### [place] [phone] #### VITB6 #### [facility] [address] [place], [place] [id number] Vitamin B1, Whole Blon 02-15 Vitamin B1 (TDP), WB 295.3 nmol/L High 84.0-213.0 [facility] Comment on above: Result Comment: This assay measures the concentration of thiamine diphosphate (TDP), the primary active form of vitamin B1. Approximately 90 percent of vitamin B1 present in whole blood is TDP. Thiamine and thiamine monophosphate, which comprise the remaining 10 percent, are not measured. This test was developed and its performance characteristics determined by [facility] ([facility]). It has not been cleared or approved by the FDA. [facility] is regulated under CLIA as qualified to perform high complexity testing. This test is used for clinical purposes. It should not be regarded as investigational or for research. Performed By: #### I FESC, EVIT, COPPER, B1WB #### [place] [address] #### VITB6 #### [address] [id number] Vitamin B6 Plasmaon 02-16-20 21 Vitamin B6 Plasma 205.4 nmol/L High 20.0-125.0 [facility] Comment on above: Result Comment: (NOT E) INTERPRETIVE INFORMATION: Vitamin B6 (Pyridoxal 5-Phosphate) Pyridoxal 5'-phosphate measured in a specimen collected following an 8-hour or overnight fast accurately indicates vitamin B6 nutritional status. Non-fasting specimen concentration reflects recent vitamin intake. This test was developed and its performance characteristics determined by [facility]. It has not been cleared or approved by the US Food and Drug Administration. This test was performed in a CLIA certified laboratory and is intended for clinical purposes. Performed By: linkedü [address] [place] [id number] Development Trainer: Deborah Hernandez MD Performed By: #### I FESC, EVIT, COPPER, B1WB #### [place] [address] [place] [address] #### VITB6 #### [address] [id number] Vitamin Levi 02-15-2021 Vitamin E-alpha 10.8 mg/L Normal 6.0-23.[address] [facility] Comment on above: Performed By: #### I FESC, EVIT, COPPER, B1WB #### [facility] [address] [place], [place] [address] #### VITB6 #### [facility] [address] [place] [address] Vitamin E-gamma 0.9 mg/L Normal 0.3-3.[address] [facility] Comment on above: Result Comment: This test was developed and its performance characteristics determined by [facility] [place] ([facility]). It has not been cleared or approved by the FDA. [facility] is regulated under CLIA as qualified to perform high complexity testing. This test is used for clinical purposes. It should not be regarded as investigational or for research. Performed By: #### I FESC, EVIT, COPPER, B1WB #### [facility] [address] [place], [place] [address] #### VITB6 #### [address] [address] CNCOon 01-09-2021 CNCO Letter Text Normal [facility] CNOVon 01-09-2021 CNOV Office Visit (NENMMN ) JEN HOLDER ([id number]) 1965 F Date Time Provider Department 01/09/21 8:00 [facility] During your visit today, we recorded the [...] eyes in the shower though this is fpc (possibly since R ankle fracture in 2010). [...] random biopsies - COLONOSCOP W/ OR W/O [facility] SPEC 03/02/2012 Colonoscopy [facility] out pt repeat 2 years - COLONOSCOP W/ OR W/O [facility] SPEC 03/07/2014 Colonoscopy [facility] - COLONOSCOP W/ OR W/O [facility] SPEC 09/13/2018 Colonoscopy - EXCISION [...] symmetrical, he (more content not included)... Normal [facility] C-Reactive Proteinon 021 C-Reactive Protein 1.0 mg/dL High <0.9 [facility] Comment on above: Performed By: #### C RP, VITD, CMP, CBCDIF #### [facility] [address] [place], [place] [address] CBC and Differentialon 06-22 Abs Baso 0.08 k/uL Normal <0.[address] [facility] Comment on above: Performed By: #### C RP, VITD, CMP, CBCDIF #### [facility] [address] [place] [address] Abs Yolo 0.74 k/uL Normal <0.[address] [facility] Comment on above: Performed By: #### C RP, VITD, CMP, CBCDIF #### [place] [address] [place] [address] Abs Neut 5.91 k/uL Normal 1.45-7.[address] [facility] Comment on above: Performed By: #### C RP, VITD, CMP, CBCDIF #### [place] [address] Absolute nRBC <0.01 Normal <0.[address] [facility] Comment on above: Performed By: #### C RP, VITD, CMP, CBCDIF #### [place] [address] [place] [address] Basophils/100 WBC (Bld) 0.9 % Normal C [facility] Comment on above: Performed By: #### C RP, VITD, CMP, CBCDIF #### [place] [address] [place] [address] DTYPE Auto Diff Normal [facility] Comment on above: Performed By: #### C RP, VITD, CMP, CBCDIF #### [place] [address] [place] [address] Eosinophils (Bld) [#/Vol] 0.20 10*3/uL Normal <0.[address] [facility] Comment on above: Performed By: #### C RP, VITD, CMP, CBCDIF #### [place] [address] [place] [address] Eosinophils/100 WBC (Bld) 2.2 % Normal [facility] Comment on above: Performed By: #### C RP, VITD, CMP, CBCDIF #### [place] [address] [place] [phone] Erythrocyte distribution width (RBC) [Ratio] 12.3 % Normal 11.5-15.[address] [facility] Comment on above: Performed By: #### C RP, VITD, CMP, CBCDIF #### [place] [address] [place] [phone] Hematocrit (Bld) [Volume fraction] 38.6 % Normal 36.0-46.[address] [facility] Comment on above: Performed By: #### C RP, VITD, CMP, CBCDIF #### [place] [address] [place] [phone] Hemoglobin (Bld) [Mass/Vol] 12.0 g/dL Normal 11.5-15.[address] [facility] Comment on above: Performed By: #### C RP, VITD, CMP, CBCDIF #### [place] [address] [place] [phone] Lymphocytes (Bld) [#/Vol] 2.32 10*3/uL Normal 1.00-4.[address] [facility] Comment on above: Performed By: #### C RP, VITD, CMP, CBCDIF #### [place] [address] [place] [phone] Lymphocytes/100 WBC (Bld) 25.1 % Normal [facility] Comment on above: Performed By: #### C RP, VITD, CMP, CBCDIF #### [place] [address] [place] [phone] MCH 29.6 pG Normal 26.0-34.[address] [facility] Comment on above: Performed By: #### C RP, VITD, CMP, CBCDIF #### [place] [address] [place] [phone] MCHC (RBC) [Mass/Vol] 31.1 g/dL Normal 30.5-36.0 [facility] Comment on above: Performed By: #### C RP, VITD, CMP, CBCDIF #### [place] [address] [place] [address] MCV (RBC) [Entitic vol] 95.1 fL Normal 80.0-100.0 [facility] Comment on above: Performed By: #### C RP, VITD, CMP, CBCDIF #### [place] [address] [place] [address] Monocytes/100 WBC (Bld) 8.0 % Normal [facility] Comment on above: Performed By: #### C RP, VITD, CMP, CBCDIF #### [place] [address] Neutrophils/100 WBC (Bld) 63.8 % Normal [facility] Comment on above: Performed By: #### C RP, VITD, CMP, CBCDIF #### [place] [address] NRBCs 0.0 /100 WBC Normal [address] [facility] Comment on above: Performed By: #### C RP, VITD, CMP, CBCDIF #### [place] [address] Platelet mean volume (Bld) [Entitic vol] 11.6 fL Normal 9.0-12.[address] [facility] Comment on above: Performed By: #### C RP, VITD, CMP, CBCDIF #### [place] [address] Platelets (Bld) [#/Vol] 373 10*3/uL Normal 150-[address] [facility] Comment on above: Performed By: #### C RP, VITD, CMP, CBCDIF #### [address], [place] [address] RBC (Bld) [#/Vol] 4.06 10*6/uL Normal 3.90-5.20 [facility] Comment on above: Performed By: #### C RP, VITD, CMP, CBCDIF #### [facility] [address] [place], [place] [address] WBC (Bld) [#/Vol] 9.25 10*3/uL Normal 3.70-11.00 [facility] Comment on above: Performed By: #### C RP, VITD, CMP, CBCDIF #### [facility] [address] [place], [place] [address] CNOVon 06-22-2020 CNOV Office Visit (GASTIN ) JEN HOLDER ([id number]) 1965 F Date Time Provider Department 06/22/20 4:00 PM ZHEN BAINS During your visit today, we recorded the following information about you: Weight Height 106 kg 1.676 m Lizz Sanders Faustin Al 06/22/2020 3:11 PM Signed [facility] AND RADIOLOGY FACTS LAB HOURS: Lab is open 7:30am to 6pm M-, and open 8am -12pm on Saturdays RADIOLOGY [...] to the scheduled exam. [facility]RS [place] [facility]: Thursday through Thursday 6:00am to 9:00pm. Thursday and Thursday 8:00am to 4:00pm. The walk in clinic is for patients 2 years and older. [place] [facility]: Thursday through Thursday 8:00am to 8:00pm. Thursday and Thursday 8:00am to 4:00pm. The walk in clinic is for patients 2 years and older. [facility] WALK IN MAMMOGRAM HOURS Thursday-Thursday 3:00pm- 7:00 pm Thursday 8:00 am- 12:00 pm For Express Care LOCATIONS, HOURS OF OPERATION and CURRENT WAIT TIMES, visit the following link [email or web address] for details. My Chart Schedule My Appointment enables you to view your established primary care provider's open schedule and book an appointment online in real-time. This feature is available in internal medicine, family medicine, or pediatrics at any of our [facility] locations and main campus. Zhen Bains MD [...] Zhen Bains MD Referring Provider: ROLANDO CEBALLOS [[id number]] Allergies As of Date: 06/22/2020 Noted Allergy Reaction LATEX, NATURAL RUBBER 12/23/2011 7 - Swelling Comments: itching/redness PERCOCET (OXYCODONE-ACETAMINOPH EN)03/11/2016 9 - Itching Date Reviewed: 06/22/2020 Reviewed by: Lizz Faustin Ma - Fully Assessed Reason for Visit: Established Patient [175] Primary Visit Diagnosis:Ulcerative colitis without complications, unspecified location (HCC) [K51.90] Order(s):CBC + DIFF [SQCBCDIF] Order #: [id number] FUTURE COMP METABOLIC PANEL [SQCMP] Order #: [id number] FUTURE C-REACTIVE PROTEIN (CRP) [SQCRP] Order #: [id number] FUTURE VITAMIN D 25 HYDROXY [SQVITD] Order #: [id number] FUTURE Prescriptions as of 06/22/2020 Sig: MESALAMINE 4 GRAM/60 ML ENEMA 60 mL by RECTAL route at (more content not included)... Normal [facility] Comp Metabolic Panelon 06-22 Albumin [Mass/Vol] 4.3 g/dL Normal 3.9-4.9 [facility] Comment on above: Performed By: #### C RP, VITD, CMP, CBCDIF #### [facility] [address] [place], [place] [address] ALP [Catalytic activity/Vol] 93 U/L Normal 34-[address] [facility] Comment on above: Performed By: #### C RP, VITD, CMP, CBCDIF #### [facility] [address] [place], [place] [address] ALT [Catalytic activity/Vol] 40 U/L High 7-[address] [facility] Comment on above: Performed By: #### C RP, VITD, CMP, CBCDIF #### [facility] [address] [place], [place] [address] Anion gap [Moles/Vol] 10 mmol/L Normal 9-18 [facility] Comment on above: Performed By: #### C RP, VITD, CMP, CBCDIF #### [facility] [address] [place], [place] [address] AST [Catalytic activity/Vol] 22 U/L Normal 13-[address] [facility] Comment on above: Performed By: #### C RP, VITD, CMP, CBCDIF #### [facility] [address] [place], [place] [address] Bilirubin [Mass/Vol] 0.2 mg/dL Normal 0.2-1.3 [facility] Comment on above: Performed By: #### C RP, VITD, CMP, CBCDIF #### [facility] [address] [place], [place] [address] Calcium [Mass/Vol] 9.1 mg/dL Normal 8.5-10.2 [facility] Comment on above: Performed By: #### C RP, VITD, CMP, CBCDIF #### [facility] [address] [place] [phone] Chloride [Moles/Vol] 106 mmol/L High 97-105 [facility] Comment on above: Performed By: #### C RP, VITD, CMP, CBCDIF #### [place] [address] [place] [phone] CO2 [Moles/Vol] 23 mmol/L Normal 22-[address] [facility] Comment on above: Performed By: #### C RP, VITD, CMP, CBCDIF #### [phone] Creatinine [Mass/Vol] 0.75 mg/dL Normal 0.58-0.96 [facility] Comment on above: Performed By: #### C RP, VITD, CMP, CBCDIF #### [place] [phone] eGFR- Amer. >60 Normal [facility] Comment on above: Performed By: #### C RP, VITD, CMP, CBCDIF #### [place] [address] [place] [phone] eGFR-All Other Races >60 Normal [facility] Comment on above: Result Comment: eGFR [...] #### C RP, VITD, CMP, CBCDIF #### [place] [address] [place], [place] [address] Glucose [Mass/Vol] 96 mg/dL Normal 74-99 [facility] Comment on above: Result Comment: The [place] Diabetes Association (ADA) provides guidance for cutoff [...] Standards of Medical Care in Diabetes 2016, [place] [employer]. Diabetes Care. 2016.39(Suppl 1). Performed By: #### C RP, VITD, CMP, CBCDIF #### [facility] [address] [place] [address] Potassium [Moles/Vol] 3.9 mmol/L Normal 3.7-5.1 [facility] Comment on above: Performed By: #### C RP, VITD, CMP, CBCDIF #### [facility] [address] [place] [address] Protein [Mass/Vol] 6.6 g/dL Normal 6.3-8.0 [facility] Comment on above: Performed By: #### C RP, VITD, CMP, CBCDIF #### [facility] [address] [place] [address] Sodium [Moles/Vol] 139 mmol/L Normal 136-144 [facility] Comment on above: Performed By: #### C RP, VITD, CMP, CBCDIF #### [facility] [employer] [address] [place] [address] Urea nitrogen [Mass/Vol] 22 mg/dL High 7-[address] [facility] Comment on above: Performed By: #### C RP, VITD, CMP, CBCDIF #### [facility] [address] [place], [place] [address] Vitamin D 25 Hydroxyon 06-22 Vitamin D 25 Hydroxy 39.6 ng/mL Normal 31.0-80.0 [facility] Comment on above: Result Comment: Clas sification of 25 [place] Vitamin D status: Insufficiency/Moderate Deficiency: < or = 30 ng/mL Sufficiency/Optimal Levels: 31 to 80 ng/mL Toxicity: > 100 ng/mL Test performed by chemiluminescent immunoassay. Performed By: #### C RP, VITD, CMP, CBCDIF ####[facility] [address] [place], [place] [phone] ANES POSTPROC EVALon 020 ANES POSTPROC EVAL HNO ID: [id number] Author: Venkata Deleon Service: ? Author Type: Anesthesiologist Type: Anesthesia Postprocedure Evaluation Filed: 02/13/2020 10:27 AM Note Text: POST ANESTHESIA EVALUATION NOTE : 1965 Procedure Summary Date: 02/13/20 Room / Location: [place] [address] / GI Anesthesia Start: 843 Anesthesia Stop: 904 Procedure: COLONOSCOPY WITH BIOPSY (N/A Bowel Colon) Diagnosis: Ulcerative pancolitis without complication (HCC) (Ulcerative Colitis) Surgeons: Zhen Baisn Responsible Provider: Venkata Deleon Anesthesia Type: MAC [...] February 13, 2020 TIME: 10:26 AM CSN: [id number] [facility] ANES PRE-OPon 02-13-2020 ANES PRE-OP HNO ID: [id number] Author: Venkata Deleon Service: ? Author Type: [...] 02/13/20 0736 Pulse 93 02/13/20735 Resp 16 02/13/20 07 Temp 36.7 ?C (98.1 ?F) 02/13/20 07 SpO2 98 % 02/13/20735 No current facility-administered medications on file as [...] February 13, 2020 TIME: 8:05 AM CSN: [id number] [facility] HISTORY PHYSICALon 0 HISTORY PHYSICAL HNO ID: [id number] Author: Zhen Bains Service: Gastroenterology Author Type: [...] random biopsies - COLONOSCOP W/ OR W/O [facility] SPEC 03/02/12 Colonoscopy [facility] out pt repeat 2 years - COLONOSCOP W/ OR W/O [facility] SPEC 03/07/14 Colonoscopy [facility] - COLONOSCOP W/ OR W/O [facility] SPEC 09/13/2018 Colonoscopy - EXCISION [...] February 13, 2020 TIME: 7:45 AM PAGER: [facility] NURSING PROGon 02-13-2020 NURSING PROG HNO ID: [id number] Author: Naren Gonzales RN Service: ? Author [...] Signed By: Naren Gonzales RN In Department: [facility] NURSING PROG HNO ID: [id number] Author: Gia Tomlinson RN Service: Nursing Author [...] Signed By: Gia Tomlinson RN In Department: [facility] ENDOSCOPY Normal [facility] SURGICAL PATHOLOGYon 020 SURGICAL PATHOLOGY ADDENDUM PRESENT Specimen #: [id number] Submitting Physician: ZHEN BAINS M.D. FINAL DIAGNOSIS 1. Right colon, biopsy (A) - Colonic mucosa with no diagnostic abnormality. 2. Transverse colon, biopsy (B) - Colonic mucosa with mild crypt architectural distortion suggestive of prior mucosal injury, negative for active inflammation, granulomas, or dysplasia. 3. Left colon, biopsy (C) - Chronic active colitis, negative for granulomas or dysplasia (see comment). JEL/klantony 02/14/2020 COMMENT 3. Given the presence of [...] in-situ hybridization tests have been determined by [facility] [place] ([facility]) in a manner consistent with CLIA requirements. One or more of these tests have not been cleared or approved by the FDA. [facility] is regulated under CLIA as qualified to [...] in two cassettes. Gross examination performed at [facility], [address] [place] [address] JJA 02/13/2020 2:42:06 PM Date of Report: 02/14/2020 Date of Procedure: 02/13/2020 Date of Receipt: 02/13/2020 Submitted by: ZHEN BAINS M.D. Location: [facility] Diagnostic interpretation performed at [facility], [address] [place] [address]. CLIA Number: [id number] [facility] HOSPon 02-07-2020 HOSP Patient:Momo Holder MRN: Height:5' [...] for the following basenames: K,HCT Progress Notes ([facility]): Braden Sarmiento MA 02/06/2020 2:08 [...] patient to be scheduled for colonoscopy at [facility]. That conversation was routed to the [facility] Gastro/General surgery pool on Thursday. It should be very easy to find. Was this message not received by the pool?? Progress Notes ([facility]): Paola Nii 02/03/2020 4:36 PM Signed [facility] called stating they are out of Moviprep but they have Golytely, would you like that in its place or do you specifically want Moviprep. Please let pharmacy know or OA pool to send Miralax directions. Mariela Ace RN 02/03/2020 5:07 PM Signed I called patient Jen. She would really like to try the Movi prep . I phoned [facility] @ [phone] and transferred prescription for prep. Told patient that if cost of script proves to be too much, that we will send her all instructions for Miralax/Gatorade recipe. [facility] Lab Report: (P) Urinalysis, Completeon 11-19-2016 Albumin Ql (U) Negative Negative [facility] Work Phone: Bilirubin Ql (U) Negative Negative [facility] Work Phone: Clarity Nom (U) Turbid Clear [facility] Work Phone: Color Nom (U) Yellow Yellow [facility] Work Phone: Glucose Ql (U) Normal mg/dl Normal [facility] Work Phone: Ketones mass conc (U) Negative Negative [facility] Work Phone: Leukocyte esterase Test strip Ql (U) Negative Negative [facility] Work Phone: OCCULT BLOOD-UR 25 High Negative [facility] Work Phone: pH (U) 6.0 [pH] 5.0 - 8.0 [facility] Work Phone: Specific gravity Refractometry Relative Density (U) 1.025 1.002-1.030 [facility] Work Phone: Lab Report: Urinalysis, Comp leteon 11-19-2016 Bacteria LM.HPF #/area (Urine sed) 1+ /hpf None Seen [facility] Work Phone: CA OX CRYSTAL 1+ /hpf [facility] Work Phone: Epithelial cells LM.HPF #/area (Urine sed) 0-5 SEEN 5-10 [facility] Work Phone: Mucus Ql (Urine sed) 0 SEEN [facility] Work Phone: RBC LM.HPF #/vol (Urine sed) 0 SEEN 0-5 [facility] Work Phone: WBC #/vol (Bld) 0 SEEN 0-5 [facility] Work Phone: Office Visit: UC: [facility]/U vitaly Frequencyon 11-18-2016 blood in urine (hemoglobin) by dipstick 3+ Invalid Interpretation Code [facility] Work Phone: Documentation of current medications (procedure) Done Invalid Interpretation Code [facility] Work Phone: Fall risk assessment No [facility] Work Phone: Glucose Test strip mass conc (U) Negative [facility] Work Phone: Nitrite Ql (U) Negative [facility] Work Phone: Protein mass conc (U) Done [facility] Work Phone: specific gravity, urine 1.020 Invalid Interpretation Code [facility] Work Phone: Tobacco smoking status NHIS Never [facility] Work Phone: Tobacco smoking status NHIS Former smoker [facility] Work Phone: Tobacco use [facility] Former smoker Invalid Interpretation Code [facility] Work Phone: Urine, appearance clear [facility] Work Phone: Urine, bilirubin presence Negative Invalid Interpretation Code [facility] Work Phone: Urine, color yellow Invalid Interpretation Code [facility] Work Phone: Urine, glucose presence Negative Invalid Interpretation Code [facility] Work Phone: Urine, ketones presence Negative Invalid Interpretation Code [facility] Work Phone: Urine, leukocyte esterase presence Negative Invalid Interpretation Code [facility] Work Phone: Urine, nitrite presence Negative Invalid Interpretation Code [facility] Work Phone: Urine, pH 6.0 [pH] Invalid Interpretation Code [facility] Work Phone: Urine, protein Negative Invalid Interpretation Code [facility] Work Phone: Urine, urobilinogen presence Negative [facility] Work Phone: Vital Signs Date Time Vital Sign Value Performing Clinician Facility 08-22-2024 15:06-0400 Body height 167.[address] Rolando Ceballos DO Work Phone: [facility] 08-22-2024 15:06-0400 Body mass index (BMI) [Ratio] 41 kg/m2 Dr. Rolando Ceballos DO Work Phone: [facility] 08-22-2024 15:06-0400 Body weight 115.[address] Rolando Ceballos DO Work Phone: [facility] 08-22-2024 15:06-0400 Diastolic blood pressure 99 mm[Hg] Dr. Rolando Ceballos DO Work Phone: [facility] 08-22-2024 15:06-0400 Heart rate 99 /min Dr. Rolando Ceballos DO Work Phone: [facility] 08-22-2024 15:06-0400 Respiratory rate 17 /min Dr. Rolando Ceballos DO Work Phone: [facility] 08-22-2024 15:06-0400 SaO2% (BldA) [Mass fraction] 97 % Dr. Rolando Ceballos DO Work Phone: [facility] 08-22-2024 15:06-0400 Systolic blood pressure 137 mm[Hg] Dr. Rolando Ceballos DO Work Phone: [facility] 08-07-2024 20:03-0400 Diastolic blood pressure 95 mm[Hg] Rolando Ceballos DO Work Phone: [facility] 08-07-2024 20:03-0400 Heart rate 82 /min Rolando Ceballos DO Work Phone: [facility] 08-07-2024 20:03-0400 SaO2% (BldA) [Mass fraction] 98 % Rolando Ceballos DO Work Phone: [facility] 08-07-2024 20:03-0400 Systolic blood pressure 155 mm[Hg] Rolando Ceballos DO Work Phone: [facility] 08-07-2024 17:19-0400 Body temperature 98.29 [degF] Rolando Ceballos DO Work Phone: [facility] 08-07-2024 17:19-0400 Respiratory rate 18 /min Rolando Ceballos DO Work Phone: [facility] 08-02-2024 08:57-0400 Diastolic blood pressure 86 mm[Hg] Rolando Ceballos DO Work Phone: [facility] 08-02-2024 08:57-0400 Heart rate 68 /min Rolando Ceballos DO Work Phone: [facility] 08-02-2024 08:57-0400 Systolic blood pressure 136 mm[Hg] Rolando Ceballos DO Work Phone: [facility] 08-02-2024 08:18-0400 Body height 167.6 cm Rolando Denisejennyirene MARTINS Work Phone: [facility] 08-02-2024 08:18-0400 Body mass index (BMI) [Ratio] 40.51 kg/m2 Rolando Ceballos DO Work Phone: [facility] 08-02-2024 08:18-0400 Body temperature 97.5 [degF] Rolando Ceballos DO Work Phone: [facility] 08-02-2024 08:18-0400 Body weight 113.85 kg Rolando Denisejennyirene MARTINS Work Phone: [facility] 08-02-2024 08:18-0400 SaO2% (BldA) [Mass fraction] 98 % Rolando Deniseyobany DO Work Phone: [facility] 05-04-2024 15:06-0500 Body height 167.[address] Rolando Ceballos DO Work Phone: [facility] 05-04-2024 15:00-0500 Body mass index (BMI) [Ratio] 39.5 kg/m2 Dr. Rolando Ceballos DO Work Phone: [facility] 05-04-2024 15:00-0500 Body weight 111.[address] Rolando Ceballos DO Work Phone: [facility] 05-04-2024 15:00-0500 Diastolic blood pressure 94 mm[Hg] Dr. Rolando Ceballos DO Work Phone: [facility] 05-04-2024 15:00-0500 Heart rate 88 /min Dr. Rolando Ceballos DO Work Phone: [facility] 05-04-2024 15:00-0500 Respiratory rate 18 /min Dr. Rolando Ceballos DO Work Phone: [facility] 05-04-2024 15:00-0500 SaO2% (BldA) [Mass fraction] 93 % Dr. Rolando Ceballos DO Work Phone: [facility] 05-04-2024 15:00-0500 Systolic blood pressure 131 mm[Hg] Dr. Rolando Ceballos DO Work Phone: [facility] 04-28-2024 15:07-0500 Diastolic blood pressure 97 mm[Hg] Dr. Rolando Ceballos DO Work Phone: [facility] 04-28-2024 15:07-0500 Heart rate 83 /min Dr. Rolando Ceballos DO Work Phone: [facility] 04-28-2024 15:07-0500 Respiratory rate 16 /min Dr. Rolando Ceballos DO Work Phone: [facility] 04-28-2024 15:07-0500 SaO2% (BldA) [Mass fraction] 96 % Dr. Rolando Ceballos DO Work Phone: [facility] 04-28-2024 15:07-0500 Systolic blood pressure 145 mm[Hg] Dr. Rolando Ceballos DO Work Phone: [facility] 04-28-2024 14:12-0500 Body mass index (BMI) [Ratio] 38.7 kg/m2 Dr. Rolando Ceballos DO Work Phone: [facility] 04-28-2024 14:12-0500 Body weight 108.[address] Rolando Ceballos DO Work Phone: [facility] 04-08-2024 08:12-0500 Diastolic blood pressure 110 mm[Hg] Bjorn Williamsono PA-C Work Phone: [facility] [employer] 04-08-2024 08:12-0500 Systolic blood pressure 160 mm[Hg] Bjorn Tejada PA-C Work Phone: [facility] [employer] 04-08-2024 07:29-0500 Body height 167.6 cm Bjorn Tejada PA-C Work Phone: [facility] [employer] 04-08-2024 07:29-0500 Body mass index (BMI) [Ratio] 39.38 kg/m2 Bjorn Tejada PA-C Work Phone: [facility] [employer] 04-08-2024 07:29-0500 Body temperature 97.7 [degF] Bjorn Tejada PA-C Work Phone: [facility] [employer] 04-08-2024 07:29-0500 Body weight 110.68 kg Bjorn Tejada PA-C Work Phone: [facility] [employer] 04-08-2024 07:29-0500 Heart rate 102 /min Bjorn Tejada PA-C Work Phone: [facility] [employer] 04-08-2024 07:29-0500 SaO2% (BldA) [Mass fraction] 98 % Bjorn Tejada PA-C Work Phone: [facility] [employer] 03-01-2024 09:59-0500 Body height 167.6 cm Bjorn Tejada PA-C Work Phone: [employer] 03-01-2024 09:59-0500 Body mass index (BMI) [Ratio] 39.19 kg/m2 Bjorn Tejada PA-C Work Phone: [facility] [employer] 03-01-2024 09:59-0500 Body temperature 97.9 [degF] Bjorn Tejada PA-C Work Phone: [facility] [employer] 03-01-2024 09:59-0500 Body weight 110.13 kg Bjorn Tejada PA-C Work Phone: [facility] [employer] 03-01-2024 09:59-0500 Diastolic blood pressure 100 mm[Hg] Bjorn Tejada PA-C Work Phone: [facility] [employer] 03-01-2024 09:59-0500 Heart rate 92 /min Bjorn Tejada PA-C Work Phone: [facility] [employer] 03-01-2024 09:59-0500 SaO2% (BldA) [Mass fraction] 98 % Bjorn Tejada PA-C Work Phone: [facility] [employer] 03-01-2024 09:59-0500 Systolic blood pressure 142 mm[Hg] Bjorn Tejada PA-C Work Phone: [facility] [employer] 01-05-2024 08:29-0400 Body height 167.6 cm Bjorn Tejada PA-C Work Phone: [facility] [employer] 01-05-2024 08:29-0400 Body mass index (BMI) [Ratio] 39.03 kg/m2 Bjorn Tejada PA-C Work Phone: [facility] [employer] 01-05-2024 08:29-0400 Body temperature 97.39 [degF] Bjorn Tejada PA-C Work Phone: [facility] [employer] 01-05-2024 08:29-0400 Body weight 109.68 kg Bjorn Tejada PA-C Work Phone: [facility] [employer] 01-05-2024 08:29-0400 Diastolic blood pressure 81 mm[Hg] Bjorn Tejada PA-C Work Phone: [facility] [employer] 01-05-2024 08:29-0400 Heart rate 81 /min Bjorn Tejada PA-C Work Phone: [facility] [employer] 01-05-2024 08:29-0400 SaO2% (BldA) [Mass fraction] 97 % Bjorn Tejada PA-C Work Phone: [facility] [employer] 01-05-2024 08:29-0400 Systolic blood pressure 138 mm[Hg] Bjorn Williamsono PA-C Work Phone: [facility] [employer] 03-26-2023 10:43-0500 Body height 167.6 cm Bjorn Williamsono PA-C Work Phone: [facility] [employer] 03-26-2023 10:43-0500 Body mass index (BMI) [Ratio] 39.22 kg/m2 Bjorn Williamsono PA-C Work Phone: [facility] [employer] 03-26-2023 10:43-0500 Body temperature 97.5 [degF] Bjorn Williamsono PA-C Work Phone: [facility] [employer] 03-26-2023 10:43-0500 Body weight 110.22 kg Bjorn Williamsono PA-C Work Phone: [facility] [employer] 03-26-2023 10:43-0500 Diastolic blood pressure 100 mm[Hg] Bjorn Williamsono PA-C Work Phone: [facility] [employer] 03-26-2023 10:43-0500 Heart rate 99 /min Bjorn Williamsono PA-C Work Phone: [facility] [employer] 03-26-2023 10:43-0500 SaO2% (BldA) [Mass fraction] 98 % Bjorn Williamsono PA-C Work Phone: [facility] [employer] 03-26-2023 10:43-0500 Systolic blood pressure 122 mm[Hg] Bjorn Williamsono PA-C Work Phone: [facility] 01-23-2023 09:07-0400 Body temperature 97.4 [degF] Dr. Bhavesh Guerrero Work Phone: [facility] 01-23-2023 09:07-0400 Diastolic blood pressure 93 mm[Hg] Dr. Bhavesh Guerrero Work Phone: [facility] 01-23-2023 09:07-0400 Heart rate 68 /min Dr. Bhavesh Guerrero Work Phone: [facility] 01-23-2023 09:07-0400 Respiratory rate 18 /min Dr. Bhavesh Guerrero Work Phone: [facility] 01-23-2023 09:07-0400 SaO2% (BldA) [Mass fraction] 96 % Dr. Bhavesh Guerrero Work Phone: [facility] 01-23-2023 09:07-0400 Systolic blood pressure 154 mm[Hg] Dr. Bhavesh Guerrero Work Phone: [facility] 01-23-2023 06:26-0400 Body height 167.[address] Bhavesh Guerrero Work Phone: [facility] 01-23-2023 06:26-0400 Body mass index (BMI) [Ratio] 38.7 kg/m2 Dr. Bhavesh Guerrero Work Phone: [facility] 01-23-2023 06:26-0400 Body weight [address] Bhavesh Guerrero Work Phone: [facility] 12-29-2022 08:31-0400 Body mass index (BMI) [Ratio] 38.9 kg/m2 Dr. Bhavesh Guerrero Work Phone: [facility] 12-29-2022 08:31-0400 Body weight 109.[address] Bhavesh Guerrero Work Phone: [facility] 12-29-2022 08:31-0400 Diastolic blood pressure 104 mm[Hg] Dr. Bhavesh Guerrero Work Phone: [facility] 12-29-2022 08:31-0400 Heart rate 86 /min Dr. Bhavesh Guerrero Work Phone: [facility] 12-29-2022 08:31-0400 Respiratory rate 17 /min Dr. Bhavesh Guerrero Work Phone: [facility] 12-29-2022 08:31-0400 SaO2% (BldA) [Mass fraction] 96 % Dr. Bhavesh Guerrero Work Phone: [facility] 12-29-2022 08:31-0400 Systolic blood pressure 156 mm[Hg] Dr. Bhavesh Guerrero Work Phone: [facility] 11-18-2022 07:58-0400 Body height 167.6 cm Bjorn Tejada PA-C Work Phone: [facility] 11-18-2022 07:58-0400 Body mass index (BMI) [Ratio] 38.74 kg/m2 Bjorn Williamsono PA-C Work Phone: [facility] 11-18-2022 07:58-0400 Body temperature 97.7 [degF] Bjorn Williamsono PA-C Work Phone: [facility] 11-18-2022 07:58-0400 Body weight 108.86 kg Bjorn Williamsono PA-C Work Phone: [facility] 11-18-2022 07:58-0400 Diastolic blood pressure 83 mm[Hg] Bjorn Williamsono PA-C Work Phone: [facility] 11-18-2022 07:58-0400 Heart rate 98 /min Bjorn Williamsono PA-C Work Phone: [facility] 11-18-2022 07:58-0400 SaO2% (BldA) [Mass fraction] 99 % Bjorn Williamsono PA-C Work Phone: [facility] 11-18-2022 07:58-0400 Systolic blood pressure 120 mm[Hg] Bjorn Tejada PA-C Work Phone: [facility] 05-19-2022 14:52-0500 Body height 167.[address] Bhavesh Guerrero Work Phone: [facility] 05-19-2022 14:52-0500 Body mass index (BMI) [Ratio] 38.3 kg/m2 Dr. Bhavesh Guerrero Work Phone: [facility] 05-19-2022 14:52-0500 Body weight 107.[address] Bhavesh Guerrero Work Phone: [facility] 05-15-2022 17:25-0500 Body temperature 97.3 [degF] Dr. Bhavesh Guerrero Work Phone: [facility] 05-15-2022 17:25-0500 Diastolic blood pressure 80 mm[Hg] Dr. Bhavesh Guerrero Work Phone: [facility] 05-15-2022 17:25-0500 Heart rate 85 /min Dr. Bhavesh Guerrero Work Phone: [facility] 05-15-2022 17:25-0500 Respiratory rate 16 /min Dr. Bhavesh Guerrero Work Phone: [facility] 05-15-2022 17:25-0500 SaO2% (BldA) [Mass fraction] 99 % Dr. Bhavesh Guerrero Work Phone: [facility] 05-15-2022 17:25-0500 Systolic blood pressure 130 mm[Hg] Dr. Bhavesh Guerrero Work Phone: [facility] 04-30-2022 16:10-0500 Body temperature 98.1 [degF] Dr. Bhavesh Guerrero Work Phone: [facility] 04-30-2022 16:10-0500 Diastolic blood pressure 80 mm[Hg] Dr. Bhavesh Guerrero Work Phone: [facility] 04-30-2022 16:10-0500 Heart rate 103 /min Dr. Bhavesh Guerrero Work Phone: [facility] 04-30-2022 16:10-0500 Respiratory rate 14 /min Dr. Bhavesh Guerrero Work Phone: [facility] 04-30-2022 16:10-0500 SaO2% (BldA) [Mass fraction] 99 % Dr. Bhavesh Guerrero Work Phone: [facility] 04-30-2022 16:10-0500 Systolic blood pressure 132 mm[Hg] Dr. Bhavesh Guerrero Work Phone: [facility] 03-31-2022 09:20-0500 Body temperature 97.9 [degF] Dr. Bhavesh Guerrero Work Phone: [facility] 03-31-2022 09:20-0500 Diastolic blood pressure 74 mm[Hg] Dr. Bhavesh Guerrero Work Phone: [facility] 03-31-2022 09:20-0500 Heart rate 77 /min Dr. Bhavesh Guerrero Work Phone: [facility] 03-31-2022 09:20-0500 Respiratory rate 16 /min Dr. Bhavesh Guerrero Work Phone: [facility] 03-31-2022 09:20-0500 SaO2% (BldA) [Mass fraction] 96 % Dr. Bhavesh Guerrero Work Phone: [facility] 03-31-2022 09:20-0500 Systolic blood pressure 125 mm[Hg] Dr. Bhavesh Guerrero Work Phone: [facility] 03-31-2022 07:27-0500 Body height 167.[address] Bhavesh Guerrero Work Phone: [facility] Work Phone: 03-31-2022 07:27-0500 Body mass index (BMI) [Ratio] 36.7 kg/m2 Dr. Bhavesh Guerrero Work Phone: [facility] 03-31-2022 07:27-0500 Body weight 103.[address] Bhavesh Guerrero Work Phone: [facility] 11-18-2016 16:49-0400 BMI (Body Mass Index) 34.36 kg/m2 Tiffany Steele LPN [facility] Work Phone: 11-18-2016 16:49-0400 Body Temperature 98.6 [degF] Tiffany Steele LPN [facility] Work Phone: 11-18-2016 16:49-0400 BP Diastolic 88 mm[Hg] Tiffany Steele LPN [facility] Work Phone: 11-18-2016 16:49-0400 BP Systolic 128 mm[Hg] Tiffany Steele LPN [facility] Work Phone: 11-18-2016 16:49-0400 Height 172.72 cm Tiffany Steele LPN [facility] Work Phone: 11-18-2016 16:49-0400 Pulse (Heart Rate) 83 /min Tiffany Steele [employer] OUT WORKER [facility] Work Phone: 11-18-2016 16:49-0400 Respiratory Rate 16 /min Tiffany Steele [employer] WORK[employer] [facility] Work Phone: 11-18-2016 16:49-0400 Weight 102.51 kg Tiffany Steele LPN [facility] Work Phone: 03-07-2016 16:23-0500 BP Diastolic 93 mm[Hg] Tiffany Steele [employer] OUT WORKER [facility] Work Phone: 03-07-2016 16:23-0500 BP Systolic 125 mm[Hg] Tiffany Steele LPN [facility] Work Phone: 03-07-2016 16:23-0500 Pulse (Heart Rate) 99 /min Tiffany Steele LPN [facility] Work Phone: Encounters Encounter Date Encounter Type Care Provider Facility Start: 10-03-2024 ambulatory [facility] Facilit y:[facility] Start: 09-30-2024 ambulatory Rolando Ceballos Facilit y:[facility] Start: 09-30-2024 Encounter for other preprocedural examination [facility] Start: 09-28-2024 End: 09-28-2024 Telephone encounter Rolando Ceballos DO Work Phone: [facility] Start: 09-27-2024 End: 09-28-2024 Telephone encounter Rolando Ceballos DO Work Phone: [facility] Comment on above: Referral (Dietitian at [facility]) Start: 08-25-2024 End: 08-25-2024 Orders Only Rolando Lupillo Lin DO Work Phone: [facility] Comment on above: Type 2 diabetes jewels itus without complication, without long- term current use of insulin (HCC) (Primary Dx) Start: 08-23-2024 End: 08-23-2024 Telephone encounter Rolando Wesley Deniseyobany Work Phone: [facility] Comment on above: Results Start: 08-22-2024 End: 08-22-[address] Marisa Palm MD -[facility] Work Phone: Start: 08-22-2024 End: 08-22-[address] Rolando Ceballos DO Work Phone: [facility] Work Phone: Start: 08-22-2024 End: 08-22-[address] Rolando Ceballos DO Work Phone: [facility] Work Phone: Start: 08-22-2024 End: 08-22-[address] Rolando Ceballos DO -Laboratory Work Phone: Start: 08-22-2024 End: 08-22-2024 ambulatory Rolando Ceballos Facility:[facility] Start: 08-20-2024 End: 08-20-[address] Rolando Ceballos DO Work Phone: [facility] Work Phone: Start: 08-20-2024 End: 08-20-[address] 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 Rolando Ceballos DO Work Phone: [facility] Work Phone: Start: 08-12-2024 End: 08-12-[address] Rolando Ceballos DO -Ultrasound [facility] Work Phone: Start: 08-12-2024 End: 08-12-2024 ambulatory Rolando Ceballos Facility:[facility] Start: 08-09-2024 End: 08-09-2024 Orders Only Rolando Ceballos DO Work Phone: [facility] Comment on above: Epigastric pain (Mindy naren Dx); Hyperglycemia; Chest pain, unspecified type; History of gallstones Start: 08-07-2024 End: 08-07-2024 Subsequent hospital visit by physician kaleigh Ecg [facility] Non-Invasive Cardiology Comment on above: Arrived Start: 08-07-2024 End: 08-07-2024 Emergency department patient visit ROLANDO CEBALLOS [facility] ED Comment on above: Chest pain, unspecif ied type (Primary Dx); Hyperglycemia Start: 08-02-2024 End: 08-02-2024 Office outpatient visit 25 minutes Rolando Ceballos DO Work Phone: [facility] Comment on above: Hyperuricemia (Prima ry Dx); Ulcerative colitis without complications, unspecified location (HCC); Renal stones; Chronic gout of foot, unspecified cause, unspecified laterality; KAYLA on CPAP; Labile essential hypertension Start: 08-02-2024 End: 08-02-2024 ambulatory [facility] Start: 07-25-2024 End: 07-25-2024 Subsequent hospital visit by physician Collins Deleon MD Work Phone: [facility] [place] Comment on above: Vocal cord dysfuncti on Start: 07-25-2024 End: 07-25-2024 ambulatory COLLINS DELEON [facility] pital Start: 06-16-2024 End: 06-16-2024 Refill Bjorn Tejada PA-C Work Phone: [facility] [place] Comment on above: Insomnia, unspecifie d type Start: 06-08-2024 End: 06-08-2024 Telephone encounter Bjorn Tejada PA-C Work Phone: [facility] Clinical Communication Comment on above: Test Scheduling Start: 05-04-2024 End: 05-04-[address] Cody Lee MD -[facility] Work Phone: Start: 05-04-2024 End: 05-04-2024 ambulatory Rolando Ceballos Facility:[facility] Start: 04-29-2024 End: 04-29-[address] Collins Deleon MD -Sleep [facility] Work Phone: Start: 04-28-2024 End: 04-29-2024 ambulatory Collins Deleon Facility:[facility] Start: 04-28-2024 Non-patient / Non-visit Dr. Lew Lee MD -[facility] Start: 04-28-2024 End: 04-28-2024 Patient encounter procedure Bjorn PUENTES -Cat [facility] Work Phone: Start: 04-28-2024 End: 04-28-2024 ambulatory Bjorn Tejada Facility:[facility] Start: 04-27-2024 End: 07-05-2024 Telephone encounter Rolando Ceballos DO Work Phone: [facility] Clinical Communication Start: 04-25-2024 End: 04-25-[address] Marisa Palm MD -[facility] Work Phone: Start: 04-25-2024 End: 04-25-2024 ambulatory Marisa Palm Facility:[facility] Start: 04-15-2024 ambulatory Rolando Lin Facilit y:[facility] Start: 04-15-2024 End: 04-15-2024 ambulatory Bjorn Tejada Facility:[facility] Start: 04-08-2024 End: 04-08-2024 ambulatory [facility] Facility:[facility] Start: 04-08-2024 End: 04-08-2024 Office outpatient visit 15 minutes Bjorn Tejada PA-C Work Phone: [facility] [place] Comment on above: Abnormal EKG (Primar y Dx); Chest pain, unspecified type; Elevated blood pressure reading in office without diagnosis of hypertension; Primary insomnia Start: 04-08-2024 End: 04-08-2024 ambulatory [facility] Start: 04-08-2024 End: 04-08-2024 ambulatory Bjorn [facility] Facility:[facility] Start: 03-25-2024 End: 03-25-2024 ambulatory [facility] Facility:[facility] Start: 03-21-2024 End: 03-21-2024 ambulatory [facility] Facility:[facility] Start: 03-07-2024 End: 03-07-2024 ambulatory [facility] Facility:[facility] Start: 03-04-2024 End: 03-04-2024 ambulatory [facility] Facility:[facility] Start: 03-01-2024 End: 04-05-2024 Patient encounter procedure Adrienne Lee RN [facility] Clinical Communication Start: 03-01-2024 End: 03-01-2024 Office outpatient visit 15 minutes Bjorn Tejada PA-C Work Phone: [facility] [place] Comment on above: Epigastric pain (Mindy naren Dx); Periumbilical pain Start: 03-01-2024 End: 04-05-2024 ambulatory Adrienne Lee RN [facility] Clinical Communication Start: 02-29-2024 End: 03-01-2024 ambulatory Malu Spaulding RN [facility] Clinical Communication Start: 02-29-2024 End: 03-01-2024 Patient encounter procedure Malu Spaulding RN [facility] Clinical Communication Start: 01-13-2024 End: 01-14-2024 Telephone encounter Bjorn Tejada PA-C Work Phone: [facility] Clinical Communication Comment on above: Orders Start: 01-05-2024 End: 01-05-2024 Office outpatient visit 40 minutes Bjorn Tejada PA-C Work Phone: [facility] Comment on above: Hypersomnolence (Mindy naren Dx); Dyspnea, unspecified type; Hyperuricemia; Urinary frequency; Insomnia, unspecified type; Eczema, unspecified type; Obesity (BMI 35.0-39.9 without comorbidity) Start: 01-05-2024 End: 01-05-2024 ambulatory [facility] Start: 01-01-2024 ambulatory [facility] y:[facility] Start: 11-10-2023 End: 11-10-2023 Office outpatient visit 15 minutes Rolando Ceballos DO Work Phone: [facility] Comment on above: COVID-19 (Primary Dx ); Ulcerative colitis without complications, unspecified location (HCC) Start: 11-10-2023 End: 11-10-2023 ambulatory [facility] Start: 11-09-2023 End: 11-09-2023 ambulatory Brianna Stokes RN [facility] Clinical Communication Start: 11-09-2023 End: 11-09-2023 Patient encounter procedure Brianna Stokes RN [facility] Clinical Communication Start: 04-03-2023 Telephone encounter Bjorn harkins PA-C Work Phone: [facility] Comment on above: Orders (MRI) Start: 03-26-2023 End: 03-26-2023 Office outpatient visit 15 minutes Bjorn Tejada PA-C Work Phone: [facility] Comment on above: Chronic left shoulde r pain (Primary Dx); Obesity (BMI 30-39.9) Start: 03-26-2023 End: 03-26-2023 Office outpatient visit 25 minutes Bjorn Tejada PA-C Work Phone: [facility] Comment on above: Chronic left shoulde r pain (Primary Dx); Obesity (BMI 30-39.9) Start: 01-23-2023 Non-patient / Non-visit Dr. Dhaval Guerrero Work Phone: [facility] Start: 01-23-2023 End: 01-23-2023 Admission to same day surgery center Dr[facility] Bhaves[facility] Start: 01-23-2023 End: 01-23-[address] Bhavesh Guerrero Work Phone: [facility] Work Phone: Start: 12-29-2022 End: 12-29-[address] Bhavesh Guerrero Work Phone: [facility] Work Phone: Start: 12-16-2022 Telephone encounter Bjorn harkins PA-C Work Phone: [facility] Comment on above: Referral Start: 12-10-2022 Telephone encounter Rolando sandoval DO Work Phone: [facility] Comment on above: Referral (General bobo rgeon) Start: 11-18-2022 End: 11-18-2022 Office outpatient visit 15 minutes Bjorn Tejada PA-C Work Phone: [facility] Comment on above: Eczema, unspecified type; GERD without esophagitis Start: 11-15-[address] Bhavesh jiménez Work Phone: [facility] Start: 11-11-2022 ambulatory [facility] Cl inical Communication Start: 11-11-2022 Patient encounter procedure [facility] Clinical Communication Start: 05-30-2022 End: 05-30-[address] Bhavesh Guerrero Work Phone: [facility] Start: 05-29-2022 End: 05-29-[address] Bhavesh Guerrero Work Phone: [facility] Work Phone: Start: 05-29-2022 End: 05-29-[address] Bhavesh Guerrero Work Phone: [facility] Start: 05-19-2022 End: 05-19-[address] Bhavesh Guerrero Work Phone: [facility] Start: 05-16-2022 End: 05-16-[address] Bhavesh Guerrero Work Phone: [facility] Work Phone: Start: 05-16-2022 End: 05-16-[address] Bhavesh Guerrero Work Phone: [facility] Start: 05-15-2022 End: 05-15-[address] Bhavesh Guerrero Work Phone: [facility] Start: 04-30-2022 End: 04-30-[address] Bhavesh Guerrero Work Phone: [facility] Start: 03-31-2022 Non-patient / Non-visit Dr. Dhaval Guerrero Work Phone: [facility] Start: 03-31-2022 End: 03-31-2022 Admission to same day surgery center Dr. Bhavesh Guerrero Work Phone: [facility] Start: 03-31-2022 End: 03-31-[address] Bhavesh Guerrero Work Phone: [facility] Work Phone: Start: 03-21-2022 End: 03-21-[address] 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 Bhavesh Guerrero Work Phone: [facility] Start: 12-03-[address] Bhavesh jiménez Work Phone: [facility] Start: 12-03-2021 End: 12-03-[address] Bhavesh Guerrero Work Phone: [facility]Labor[facility] Procedures Date Procedure Procedure Detail Performing Clinician [...] ast 12 lds trcg only w/o i&r Mejgon Z Fadumo DO Work Phone: Start: 04-28-2024 CT angiography of co ronary arteries Dr. Rolando Ceballos DO Work Phone: Start: 04-08-2024 Ecg routine ecg w/le ast 12 lds w/i&r Bjorn Tejada PA-C Work Phone: Start: 04-08-2024 Mammography Bjorn harkins PA-C Work Phone: Start: 04-07-2024 Adult depression scr eening assessment Bjorn PUENTES-C Work Phone: Start: 01-05-2024 Culture bacterial quanttative [...] Radiologic examinati on of knee Dr. Bhavesh Guerreor Work Phone: Start: 03-31-2022 End: 03-31-[address] Bhavesh Guerrero Work Phone: Start: 04-24-2020 Mammography Bhavesh dutta DO Work Phone: Start: 11-19-2016 End: 11-19-2016 Urinalysis Reggie PUENTES Start: 11-18-2016 End: 11-18-2016 Urinalysis Reggie PUENTES Start: 11-18-2016 End: 11-20-2016 Urinalysis complete panel - Urine Reggie PUENTES Work Phone: Start: 11-18-2016 End: 11-18-2016 Urinalysis nonauto w/o scope Reggie PUENTES Work Phone: Plan of Treatment Date Care Activity Detail Author Start: 2040 RSV Immunization for Adults (1 - 1-dose 75+ series) RSV Immunization for Adults (1 - 1-dose 75+ series) [facility] Start: 03-31-2032 Screening for malign ant neoplasm of colon [facility] Start: 12-28-2027 DTaP/Tdap/Td Vaccine s (3 - Td or Tdap) DTaP/Tdap/Td Vaccines (3 - Td or Tdap) [facility] Start: 12-28-2027 DTaP/Tdap/Td Vaccine s (4 - Td or Tdap) DTaP/Tdap/Td Vaccines (4 - Td or Tdap) [facility] Start: 11-16-2027 Lipid panel Lipid Panel [facility] Start: 08-07-2025 Diabetes: Estimated Glomerular Filtration Rate for Kidney Health Diabetes: Estimated Glomerular Filtration Rate for Kidney Health [facility] Start: 2025 RSV Immunization age d 60 or older (1 - 1-dose 60+ series) RSV Immunization aged 60 or older (1 - 1-dose 60+ series) [facility] Start: 04-08-2025 Screening for malign ant neoplasm of breast Mammogram [facility] Start: 04-07-2025 Depression Screening Depression Scre ening [facility] Start: 01-04-2025 Depression Screening Depression Scre ening [facility] Start: 11-22-2024 End: 11-22-2024 Patient encounter procedure 11/22/2024 8:00 AM EDT [facility] [address] [place] [address] Rolando Ceballos DO [address] [place] [address] [place] [address] [facility] [place] Start: 11-21-2024 FLU (Season Ended) FLU (Season Ended ) [facility] Start: 11-21-2024 Influenza vaccination [facility] Start: 11-02-2024 End: 11-02-2024 Patient encounter procedure 11/02/2024 4:40 PM EDT Office Visit [facility] [place] [address] [place] [address] Rolando Ceballos DO [address] [place] [address] [facility] Start: 09-19-2024 Influenza vaccination Influenza Vacc ine (#1) [facility] Comment on above: Postponed from 11/21 (Patient Refused) Start: 08-10-2024 End: 08-10-2024 Patient encounter procedure 08/10/2024 1:30 PM EDT Appointment [facility] [place] [address] [place] [address] Dottie Escudero, [facility] [employer] [address] [place] [address] [facility] Comment on above: follow up Start: 08-09-2024 End: 08-09-2025 Glucose [Mass/volume] in Serum or Plasma Glucose, Random Lab Routine Hyperglycemia Expected: 08/09/2024 (Approximate), Expires: 08/09/2025 [facility] Comment on above: Expected: 08/09/2024 (Approximate), Expires: 08/09/2025 Start: 08-09-2024 End: 08-09-2025 Hemoglobin A1c measurement Hemoglobin A1c Lab Routine Hyperglycemia Expected: 08/09/2024 (Approximate), Expires: 08/09/2025 [facility] Comment on above: Expected: 08/09/2024 (Approximate), Expires: 08/09/2025 Start: 08-09-2024 End: 08-09-2025 US Abdomen limited US abdomen limited Imaging Routine Chest pain, unspecified type History of gallstones Expected: 08/09/2024, Expires: 08/09/2025 [facility] Work Phone: Comment on above: Expected: 08/09/2024 , Expires: 08/09/2025 Start: 08-02-2024 End: 08-02-2025 Urate [Mass/volume] in Serum or Plasma Uric acid Lab Routine Hyperuricemia Expected: 08/02/2024 (Approximate), Expires: 08/02/2025 [facility] [employer] [facility] Work Phone: Comment on above: Expected: 08/02/2024 (Approximate), Expires: 08/02/2025 Start: 08-02-2024 End: 08-02-2024 Patient encounter procedure 08/02/2024 8:20 AM EDT Office Visit [facility] [place] [address] [place] [address] Rolando Ceballos DO [address] [place] [address] [place] [address] [facility] Start: 06-28-2024 End: 06-28-2024 Patient encounter procedure 06/28/2024 8:30 AM EDT Office Visit [facility] [address] [place] [address] Rolando Ceballos, [address] [place] [address] [facility] Start: 04-28-2024 Following clinical pathway protocol [facility] Start: 04-08-2024 End: 04-08-2025 CTA Heart and Coronary arteries WO and W contrast IV CTA HEART CORONARY ANGIOGRAM WITH PROV FFR-CT Imaging Routine Abnormal EKG Chest pain, unspecified type Expected: 04/08/2024, Expires: 04/08/2025 [facility] Comment on above: Expected: 04/08/2024 , Expires: 04/08/2025 Start: 04-08-2024 End: 04-08-2026 US Heart Transthoracic Transthoracic echocardiogram (TTE) complete with contrast, bubble, strain, and 3D PRN CV Echocardiography Routine Abnormal EKG Chest pain, unspecified type Expected: 04/08/2024 (Approximate), Expires: 04/08/2026 [facility] Work Phone: Comment on above: Expected: 04/08/2024 (Approximate), Expires: 04/08/2026 Start: 03-01-2024 End: 03-01-2025 CT Abdomen and Pelvis WO contrast CT abdomen pelvis wo IV contrast Imaging STAT Periumbilical pain Expected: 03/01/2024, Expires: 03/01/2025 [facility] Comment on above: Expected: 03/01/2024 , Expires: 03/01/2025 Start: 02-29-2024 End: 02-28-2025 CBC W Auto Differential panel - Blood CBC auto differential Lab Routine Epigastric pain Expected: 02/29/2024 (Approximate), Expires: 02/28/2025 [facility] Comment on above: Expected: 02/29/2024 (Approximate), Expires: 02/28/2025 Start: 02-29-2024 End: 02-28-2025 Comprehensive metabolic 1998 panel - Serum or Plasma Comprehensive metabolic panel Lab Routine Epigastric pain Expected: 02/29/2024 (Approximate), Expires: 02/28/2025 [employer] Work Phone: Comment on above: Expected: 02/29/2024 (Approximate), Expires: 02/28/2025 Start: 02-29-2024 End: 02-28-2025 Lipase [Enzymatic activity/volume] in Serum or Plasma Lipase Lab Routine Epigastric pain Expected: 02/29/2024 (Approximate), Expires: 02/28/2025 [facility] [employer] Comment on above: Expected: 02/29/2024 (Approximate), Expires: 02/28/2025 Start: 01-12-2024 End: 01-12-2024 Patient encounter procedure 01/12/2024 7:30 AM EDT Office Visit [facility] [address] [place] [address] Rolando Ceballos, [address] [place] [address] [facility] Start: 01-05-2024 End: 01-04-2025 Bacteria identified in Urine by Culture Urine culture (clean catch) Microbiology Routine Urinary frequency Expected: 01/05/2024 (Approximate), Expires: 01/04/2025 [facility] [employer] Comment on above: Expected: 01/05/2024 (Approximate), Expires: 01/04/2025 Start: 01-05-2024 End: 01-04-2025 Complete PFT pre and post bronchodilator Complete PFT pre and post bronchodilator PFT Routine Hypersomnolence Dyspnea, unspecified type Expected: 01/05/2024 (Approximate), Expires: 01/04/2025 [facility]: Comment on above: Expected: 01/05/2024 (Approximate), Expires: 01/04/2025 Start: 01-05-2024 End: 01-04-2025 Sleep study with pap titration Sleep study with pap titration Sleep Center Routine Hypersomnolence Dyspnea, unspecified type Expected: 01/05/2024 (Approximate), Expires: 01/04/2025 [facility] Comment on above: Expected: 01/05/2024 (Approximate), Expires: 01/04/2025 Start: 11-22-2023 COVID-19 (2023-04 season) COVID-19 () [facility] Start: 11-22-2023 COVID-19 (2023-04) COVID-19 () [facility] Start: 11-22-2023 COVID-19 Vaccine ( season) COVID-19 Vaccine ( season) [facility] Start: 11-22-2023 COVID-19 Vaccine ( season) COVID-19 Vaccine ( season) [facility] Start: 11-22-2023 Influenza vaccination Influenza Vacc ine (#1) [facility] Start: 11-16-2023 Lipid panel Lipid Panel [facility] Start: 11-10-2023 End: 11-10-2023 Telemedicine consultation with patient 11/10/2023 12:30 PM EDT Telemedicine [facility] [address] [place] [address] Rolando Ceballos, [address] [place] [address] [place] [address] [facility] Start: 05-19-2023 End: 05-19-2023 Patient encounter procedure [facility] Start: 03-26-2023 End: 03-26-2024 MR Shoulder - left WO contrast MR shoulder left wo IV contrast Imaging Routine Chronic left shoulder pain Expected: 03/26/2023, Expires: 03/26/2024 [facility] Work Phone: Comment on above: Expected: 03/26/2023 , Expires: 03/26/2024 Start: [facility]-23-[facility]23 [facility] Start: 11-21-2022 COVID-19 Vaccine ( season) COVID-19 Vaccine ( season) [facility] Start: 11-21-2022 Influenza vaccination Influenza Vacc ine (#1) [facility] Start: 11-18-2022 End: 11-18-2022 Patient encounter procedure 11/18/2022 8:00 AM EDT Office Visit [facility] [address], [place] [id number] Bjorn Tejada PA-C [address], [place] [id number] [facility] Start: 05-15-2022 Patient referral [facility] Work Phone: Start: 03-31-2022 Colonoscopy w/biopsy single/multiple COLONOSCOPY AND BIOPSY [facility] Start: 03-31-2022 Patient discharge [facility] Start: 12-06-2021 Diabetes mellitus screening Diabetes Screening [facility] Start: 12-06-2021 Hemoglobin A1c measurement Diabetes: Hemoglobin A1C [facility] Start: 11-21-2021 Influenza vaccination Influenza Vacc ine (#1) [facility] Start: 06-14-2021 COVID-19 Vaccine (4 - Booster for Moderna series) COVID-19 Vaccine (4 - Booster for Moderna series) [facility] Start: 06-14-2021 COVID-19 Vaccine (4 - Moderna series) COVID-19 Vaccine (4 - Moderna series) [facility] Start: 04-24-2021 Screening for malign ant neoplasm of breast Mammogram [facility] Start: 12-29-2019 Hepatitis B (2 of 3 - 19+ 3-dose series) Hepatitis B (2 of 3 - 19+ 3-dose series) [facility] Start: 12-29-2019 Hepatitis B Vaccines (2 of 3 - 19+ 3-dose series) Hepatitis B Vaccines (2 of 3 - 19+ 3-dose series) [facility] Start: 12-29-2019 Hepatitis B Vaccines (2 of 3 - 3-dose series) Hepatitis B Vaccines (2 of 3 - 3-dose series) [facility] Start: 06-27-2018 Tetanus Diphtheria a nd Pertussis Vaccines (3 - Td or Tdap) Tetanus Diphtheria and Pertussis Vaccines (3 - Td or Tdap) [facility] Start: 11-18-2016 End: 11-18-2016 Appointment Appointment [facility] Work Phone: Start: 11-18-2016 End: 11-20-2016 Urinalysis complete panel - Urine *UAC- Urinalysis, Complete w/ Micro [facility] Work Phone: Start: 2015 Zoster Vaccines (1 of 2) Zoster Vacc farhat (1 of 2) [facility] Start: 1995 Screening for malign ant neoplasm of cervix [facility] Start: 1986 Microscopic observat ion [Identifier] in Cervix by Cyto stain Pap Smear [facility] Start: 1986 Screening for malign ant neoplasm of cervix Pap Smear [facility] Start: 1984 Hepatitis A Vaccines (1 of 2 - Risk 2-dose series) Hepatitis A Vaccines (1 of 2 - Risk 2-dose series) [facility] Start: 1984 Pneumococcal Vaccine : 50+ Years (1 of 2 - PCV) Pneumococcal Vaccine: 50+ Years (1 of 2 - PCV) [facility] Start: 1983 Diabetes: Urine Albumin-Creatinine Ratio for Kidney Health Diabetes: Urine Albumin-Creatinine Ratio for Kidney Health [facility] Start: 1983 Hepatitis C screening Hepatitis C Sc reening [facility] Start: 1981 MenB (1 of 2 - MenB 2-Dose Series Bexsero) MenB (1 of 2 - MenB 2-Dose Series Bexsero) [facility] Start: 1978 Varicella (1 of 2 - 13+ 2-dose series) Varicella (1 of 2 - 13+ 2-dose series) [facility] Start: 1977 Depression Screening Depression Scre ening [facility] Start: 1975 Diabetic foot examination Diabetes: Foot Exam [facility] Start: 1975 Glaucoma screening Diabetes: R etinopathy Screening [facility] Start: 1975 Preventive dental service Diabetes: Dental Exam [facility] Start: 1971 Pneumococcal Vaccine : Pediatrics (0 to 5 Years) and At-Risk Patients (6 to 64 Years) (1 of 2 - PCV) Pneumococcal Vaccine: Pediatrics (0 to 5 Years) and At-Risk Patients (6 to 64 Years) (1 of 2 - PCV) [facility] Start: 1966 Hepatitis A Vaccines (1 of 2 - Risk 2-dose series) Hepatitis A Vaccines (1 of 2 - Risk 2-dose series) [facility] [facility] Start: 1966 MMR (1 of 1 - Standa rd series) MMR (1 of 1 - Standard series) [facility] Start: 1966 MMR Vaccines (1 of 1 - Standard series) MMR Vaccines (1 of 1 - Standard series) [facility] Start: 1965 HIV screening HIV Screening [facility] Start: 1965 Lipid panel Lipid Panel [facility] Start: 1965 Screening for malign ant neoplasm of colon [facility] MR Lower Extremity Joint [facility] Patient Education URINARY%20URGE NCY%20AND%20 FREQUENCY [facility] Work Phone: Patient referral [facility] Work Phone: Immunizations Immunization Date Immunization Notes Care Provider [facility] 02-09-2023 influenza, injectabl e, quadrivalent, preservative free Rolando Ceballos DO Work Phone: [facility] 02-09-2023 influenza virus vaccine, unspecified formulation Brianna Stokes RN [facility] 01-27-2022 influenza, injectabl e, quadrivalent, preservative free Dr. Bhavesh Guerrero Work Phone: [facility] 01-27-2022 influenza, seasonal, injectable Dr. Bhavesh Guerrero Work Phone: [facility] 01-27-2022 influenza virus vaccine, unspecified formulation Monserrat Martines RN [facility] 04-19-2021 Covid (Pfizer) Dr. Bhavesh arreaga Work Phone: [facility] 12-28-2020 influenza virus vaccine, unspecified formulation Bhavesh Guerrero DO Work Phone: [facility] 12-28-2020 influenza, injectabl e, quadrivalent, contains preservative Bhavesh Guerrero DO Work Phone: [facility] 12-28-2020 influenza, injectabl e, quadrivalent, preservative free Dr. Bhavesh Guerrero Work Phone: [facility] 12-28-2020 influenza, seasonal, injectable Dr. Bhavesh Guerrero Work Phone: [facility] 04-18-2020 Covid (Moderna) Dr. Bhavesh amaya Work Phone: [facility] 03-21-2020 Covid (Moderna) Dr. Bhavesh amaya Work Phone: [facility] 12-20-2019 influenza virus vaccine, unspecified formulation Bhvaesh Guerrero DO Work Phone: [facility] 12-20-2019 influenza, injectabl e, quadrivalent, preservative free Dr. Bhavesh Guerrero Work Phone: [facility] 12-20-2019 influenza, seasonal, injectable Dr. Bhavesh Guerrero Work Phone: [facility] 12-01-2019 hepatitis B vaccine, adult dosage Bhavesh Guerrero DO Work Phone: [facility] 12-01-2019 hepatitis B vaccine, unspecified formulation Collins Deleon MD Work Phone: [facility] 01-11-2019 influenza virus vaccine, unspecified formulation Bhavesh Guerrero DO Work Phone: [facility] 01-11-2019 influenza, injectabl e, quadrivalent, preservative free Dr. Bhavesh Guerrero Work Phone: [facility] 01-11-2019 influenza, seasonal, injectable Dr. Bhavesh Guerrero Work Phone: [facility] 12-27-2017 diphtheria, tetanus toxoids and acellular pertussis vaccine, unspecified formulation Bhavesh Guerrero DO Work Phone: [facility] 12-27-2017 tetanus toxoid, redu ivon diphtheria toxoid, and acellular pertussis vaccine, adsorbed Dr. Bhavesh Guerrero Work Phone: [facility] 12-18-2017 influenza virus vaccine, unspecified formulation Bhavesh Guerrero DO Work Phone: [facility] 12-18-2017 influenza, injectabl e, quadrivalent, preservative free Dr. Bhavesh Guerrero Work Phone: [facility] 12-18-2017 influenza, seasonal, injectable Dr. Bhavesh Guerrero Work Phone: [facility] 01-28-2017 influenza virus vaccine, unspecified formulation Bhavesh Guerrero DO Work Phone: [facility] 01-28-2017 influenza, injectabl e, quadrivalent, preservative free Dr. Bhavesh Guerrero Work Phone: [facility] 01-28-2017 influenza, seasonal, injectable Dr. Bhavesh Guerrero Work Phone: [facility] 12-21-2015 influenza virus vaccine, unspecified formulation Bhavesh Guerrero DO Work Phone: [facility] 12-21-2015 influenza, injectabl e, quadrivalent, preservative free Dr. Bhavesh Guerrero Work Phone: [facility] 12-21-2015 influenza, seasonal, injectable Dr. Bhavesh Guerrero Work Phone: [facility] 07-10-2015 tetanus toxoid, redu ivon diphtheria toxoid, and acellular pertussis vaccine, adsorbed Bhavesh Guerrero DO Work Phone: [facility] 03-05-2015 influenza virus vaccine, unspecified formulation Bhavesh Guerrero DO Work Phone: [facility] 03-05-2015 influenza, injectabl e, quadrivalent, preservative free Dr. Bhavesh Gurerero Work Phone: [facility] 03-05-2015 influenza, seasonal, injectable Dr. Bhavesh Guerrero Work Phone: [facility] 01-11-2014 influenza virus vaccine, unspecified formulation Bhavesh Soriawilliamluzmaria DO Work Phone: [facility] 01-11-2014 influenza, injectabl e, quadrivalent, contains preservative Bhavesh Guerrero DO Work Phone: [facility] 01-11-2014 influenza, seasonal, injectable Rolando Ceballos DO Work Phone: [facility] 12-08-2013 influenza virus vaccine, unspecified formulation Bhavesh Soriawilliamluzmaria DO Work Phone: [facility] 12-08-2013 influenza, injectabl e, quadrivalent, preservative free Dr. Bhavesh Guerrero Work Phone: [facility] 12-08-2013 influenza, seasonal, injectable Dr. Bhavesh Guerrero Work Phone: [facility] 01-20-[address] Bhavesh Guerrero Work Phone: [facility] 01-20-2013 influenza virus vaccine, unspecified formulation Bhavesh Soriaanisafiona DO Work Phone: [facility] 01-20-2013 Influenza, seasonal, injectable, preservative free Rolando Ceballos DO Work Phone: [facility] 12-03-2011 pneumococcal Conjuga te, unspecified formulation Bhavesh Soriawilliamluzmaria DO Work Phone: [facility] Payers Date Payer Category Payer Self-pay [id number] 2022 Commercial Managed C are - O [employer] [id number] 2022 Private Health Insurance [id number] 2022 Unknown [id number] 2015 Unknown ANTHEM [id number] 1965 Unknown [id number]. 479 1965 Unknown [id number] 2.16840.1.231986.3.579.2. 479 Unknown [facility] MHS DO NOT USE 22 [id number] Unknown [id number] 2.16.840.1.159692.3.579.2. 462 Unknown [id number] 2.16840.1.589926.3.579.2. 462 Unknown [id number] 2.16.840.1.071661.3.579.2. 462 Unknown [id number] 2.16.840.1.743954.3.579.2. 462 Unknown [id number] 2.16.840.1.536476.3.579.2. 462 Unknown [id number] 2.16.840.1.764134.3.579.2. 462 Unknown [id number] 2.16.840.1.408298.3.579.2. 462 Unknown [id number] 2.16.840.1.965596.3.579.2. 462 Unknown [id number] 2.16.840.1.303194.3.579.2. 462 Unknown [id number] 2.16.840.1.604972.3.579.2. 462 Unknown [id number] 2.16.840.1.320509.3.579.2. 462 Unknown [id number] 2.16.840.1.533247.3.579.2. 462 Unknown [id number] 2.16.840.1.132388.3.579.2. 462 Unknown [id number] 2.16.840.1.412675.3.579.2. 462 Unknown [id number] 2.16.840.1.964891.3.579.2. 462 Unknown [id number] 2.16.840.1.146072.3.579.2. 462 Unknown [id number] 2.16.840.1.064197.3.579.2. 462 Unknown [id number] 2.16.840.1.885372.3.579.2. 462 Unknown [id number] 2.16.840.1.574770.3.579.2. 462 Unknown [id number] 2.16.840.1.672486.3.579.2. 462 Unknown [id number] 2.16.840.1.579329.3.579.2. 462 Unknown [id number] 2.16840.1.871268.3.579.2. 462 Social History Date Type Detail Facility Start: 03-27-2022 End: 01-12-2023 Tobacco smoking status ILIS Unknown if ever smoked [facility] Start: 1965 Sex Assigned At Female [facility] Start: 07-08-2022 End: 01-05-2024 Tobacco smoking status NHIS Ex-smoker [facility] End: 10-31-1994 History of tobacco use Current smoker [facility] End: 10-31-1994 History of tobacco use Cigarette Smoker [facility] Start: 07-08-2022 End: 01-05-2024 Cigarettes smoked current (pack per day) - Reported 1 [facility] [employer] Start: 07-08-2022 End: 01-05-2024 Tobacco use and exposure Smokeless tobacco non-user [facility] [employer] Start: 12-05-2021 End: 07-08-2022 Alcohol intake Current drinker of alcohol (finding) [facility] [employer] Start: 07-08-2022 End: 01-05-2024 Tobacco use panel [facility] [employer] Start: 1965 Sex Assigned At Not on file [facility] Start: 11-08-2022 End: 11-18-2022 Exposure to SARS-CoV-2 (event) Not sure [facility] [employer] Start: 03-26-2023 Gender identity Identifies as female gender (finding) [facility] [employer] Start: 03-26-2023 Sexual orientation Heterosexual (fin ding) [facility] [employer] Start: 01-05-2024 End: 09-28-2024 Alcoholic beverage intake Ex-drinker (finding) [facility] How often do you nee d to have someone help you when you read instructions, pamphlets, or other written material from your doctor or pharmacy [SILS] Never [facility] Has the [employer], oil, or water [employer] threatened to shut off services in your home in past 12Mo No [facility] Do you belong to any clubs or organizations such as latter-day groups, unions, fraternal or athletic groups, or school groups? Yes [facility] Are you now , , , , never or living with a partner? [facility] How often to you hav e a drink containing alcohol? Monthly or less [facility] How often do you hav e 6 or more drinks on 1 occasion? Never [facility] How hard is it for y ou to pay for the very basics like food, housing, medical care, and heating Not very hard [facility] Do you feel stress - tense, restless, nervous, or anxious, or unable to sleep at night because your mind is troubled all the time - these days [OSQ] To some extent [facility] (I/We) worried wheth er (my/our) food would run out before (I/we) got money to buy more. Never true [facility] Start: 08-01-2022 Sex Female (finding) [facility] NEGATED: Highlighted row [facility] Work Phone: NEGATED: Highlighted row [facility] Medical Equipment Procedure Code Equipment Code Equipment Origin al Text Equipment Identifier Dates Repair, hernia, umbilical, using mesh ([id number]) Extra-gynaecologic al surgical mesh, composite-polymer [id number] FDA Start: 03-25-2024 Goals Date Patient Goal Desired Activity /State Functional Status Date Assessment Result Facility 01-23-2023 Functional status Ambulates;Bathroom Priv ilege [facility] Work Phone: Mental Status Date Assessment Result Facility 04-28-2024 Cognitive function Awake;Alert;Appropriat e [facility] Work Phone: 01-23-2023 Cognitive function Voice/Name [facility] Work Phone: 03-31-2022 Cognitive function Voice/Name [facility] Work Phone: Clinical Notes 06-22-2020 to 09-28-2024 Addendum Note - Rolando Ceballos, DO - 09/28/2024 12:04 PM EDTAddendum Note - Rolando Ceballos, DO - 09/28/2024 12:04 PM EDTAddendum Note - Rolando Ceballos, DO - 09/28/2024 12:04 PM EDTAttachments Note Date & Type Note Facility 09-28-2024 Note Addended by: ROLANDO GARY on: 09/28/2024 12:04 PM Modules accepted: Orders [facility] 09-28-2024 Note Addended by: ROLANDO GARY on: 09/28/2024 12:04 PM Modules accepted: Orders [facility] 09-28-2024 Miscellaneous Notes Addended by: ROLANDO CEBALLOS on: 09/28/2024 12:04 PM Modules accepted: Orders Addended by: ALONSO RATLIFF on: 09/28/2024 07:37 AM Modules accepted: Orders Referral to Dietitian pended for dx and doctor's signature Ordered faxed to [facility] Call this patient and forward the copy of the hemoglobin A1c and glucose level that I ordered in July. I believe she might want to get that done at [facility]. she also would like referral to dietitian. documented in this encounter [facility] 09-28-2024 Note Addended by: ALONSO RATLIFF on: 09/28/2024 07:37 AM Modules accepted: Orders [facility] 09-28-2024 Note Addended by: ALONSO RATLIFF on: 09/28/2024 07:37 AM Modules accepted: Orders [facility] 09-28-2024 Note Referral to Dietitia n pended for dx and doctor's signature [facility] 09-28-2024 Telephone encounter Note Referral to Dietitian pended for dx and doctor's signature [facility] 09-28-2024 Telephone encounter Note Ordered faxed to [facility] 09-27-2024 Telephone encounter Note Call this patient and forward the copy of the hemoglobin A1c and glucose level that I ordered in July. I believe she might want to get that done at [facility]. she also would like referral to dietitian. [facility] 08-29-2024 Telephone encounter Note Spoke with patient and advised, patient voiced understanding. Patient is already scheduled for next available 11/02/24 4:40PM. [facility] 08-29-2024 Miscellaneous Notes Spoke with patient and advised, patient voiced understanding. Patient is already scheduled for next available 11/02/24 4:40PM. Pt was also left a message to return call to the office if she has any questions. Name of caller: Jen Contact phone number: [phone] Relationship to Patient: patient Provider: Dr Ceballos Practice: [facility] Chief Complaint/Reason for Call: Patient requesting a callback to advise if her lab results and US images were received. Thank you Best time of day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 [phone] Dept Loc: [phone] Visit type: Established Patient Reason for Visit: [...] mg) by mouth daily., Starting Thu01/05/2024, Until 07/03/2024, Normal 4. Urinary frequency Comments: Recent urinalysis [...] years encouraged exercise activity and returning to [employer] increasing activity levels throughout the week will [...] Age of Onset Diabetes Mother insulin Other (47475) Mother age 62 of complications of PUD [...] prior to signing but minor errors in clinic lead may have occurred. documented in this [facility]10-15-2024 History of Present illness Narrative* Bjorn Tejada PA-C - 01/05/2024 8:40 AM EDT Images from the original note were not included. [facility] - [address] [facility] [address] Dept: [phone] Dept Loc: [phone] Visit type: Established Patient Reason for Visit: [...] years encouraged exercise activity and returning to [employer] increasing activity levels throughout the week [...] Age of Onset Diabetes Mother insulin Other (70689) Mother age 62 of complications of PUD [...] prior to signing but minor errors in clinic lead may have occurred. documented in this [facility]10-15-2024 Note* Addendum Note - Alonso Ratliff - 01/05/2024 8:40 AM EDTAddended by: ALONSO RATLIFF on: 03/17/2024 11:53 AM Modules accepted: Orders [facility] HospitalHyrwnz38-74-0899 History of Present illness Narrative* Rolando Ceballos, DO - 11/10/2023 12:30 PM EDT Images from the original note were not included. [facility] [address] [facility] [address] [facility] [address] Dept: [phone] Dept Loc: [phone] Patient was identified and seen today via [...] stated that they are currently in the [facility]. If the patient is a minor, [...] of breath, body aches, fever, and diarrhea. Subjective Jen Holder is a 58 y.o. who presents [...] DO 11/10/2023 10:34 PM documented in this [facility]08-19-2024 Telephone encounter Note* Telephone Encounter - Brianna [...] schedule for an appointment today, patient declines. [facility] scheduled on 11/10/23 at12:30PM. The [...] fever) (Exceptions: Already seen by doctor or RF MANAGER/PA and no new or worsening symptoms.) Protocols used: Coronavirus (COVID-19) Diagnosed or Oekuxdqiw-PGMYP-QB [facility] HospitalCctqkd69-21-6539 Miscellaneous Notes* Telephone Encounter - Brianna Stokes [...] schedule for an appointment today, patient declines. [facility]/10/23 at12:30PM. The [...] fever) (Exceptions: Already seen by doctor or RF MANAGER/PA and no new or worsening symptoms.) Protocols used: Coronavirus (COVID-19) Diagnosed or Dnldyvhgg-GEFEQ-KK documented in this encounterSOhioHealth Marion General HospitalVswiqy85-44-5184 Telephone encounter Note* Telephone Encounter - Alonso Greene - 2023 1:39 PM EST Per pt; Her current ins has termed on 03/22/23. No new card on file. Pt advised that this is a covered benefit and no auth needed. Orders faxed. [facility] HospitalFvcrkq73-97-1475 Miscellaneous Notes* Telephone Encounter - Alonso Gaudencio - 2023 1:39 PM EST Per pt; [...] in yet. Tried to return call to [facility] about message left. After being transferred numerous timesno one knows who left a message for us to return call. MRI on hold until updated insurance card can be provided and auth done if needed. * Telephone Encounter - Maylin Maciel - 04/06/2023 2:12 PM EST Name of caller: Scheduling [facility] Contact phone number: [phone] Relationship to Patient: [facility] Provider: Dr. Ceballos Practice: [facility] Chief Complaint/Reason for Call: Need call back concerning MRI auth information. Please advise. Best time of day caller can be reached: any Patient advised that office/PCP has 24-48 business hours to return their call: No * Telephone Encounter - Alin Merrill - 04/03/2023 3:54 PM EST Name of caller: Jen Contact phone number: [phone] Relationship to Patient: patient Provider: Lin Practice: [facility] Chief Complaint/Reason for Call: Pt states at 03/26 appt it was discussed she would like MRI order faxed to [facility] but they never received the order. Pt expressed a lot of frustration about the mixup stating things like this always happen at this office. Called [facility] and obtained fax [phone] and sent MRI order. Received confirmation that Right[employer] was successfully sent. Documenting for record of encounter. Best time of day caller can be reached: n/a Patient advised that office/PCP has 24-48 business hours to return their call: N/A documented in this encounterSOhioHealth Marion General HospitalDmahap52-85-4060 Telephone encounter Note* Telephone Encounter - Alonso Ratliff - 04/09/2023 3:48 PM EST Unable to do authorization for MRI due to insurance card on file states termed 03/22/23 Abby left message on pt's vm on 04/07/22 for pt to provide us with an updated card. No updated card has been sent in yet. Tried to return call to [facility] about message left. After being transferred numerous timesno one knows who left a message for us to return call. MRI on hold until updated insurance card can be provided and auth done if needed. [facility] HospitalVblnct87-80-0377 Miscellaneous Notes* Telephone Encounter - Alonso Ratliff - 04/09/2023 3:48 PM EST Unable to do authorization for MRI due to insurance card on file states termed 03/22/23 Abby left message on pt's vm on 04/07/22 for pt to provide us with an updated card. No updated card has been sent in yet. Tried to return call to [facility] about message left. After being transferred numerous timesno one knows who left a message for us to return call. MRI on hold until updated insurance card can be provided and auth done if needed. * Telephone Encounter - Maylin Bojorquezes - 04/06/2023 2:12 PM EST Name of caller: Scheduling [facility] Contact phone number: [phone] Relationship to Patient: [facility] Provider: Dr. Ceballos Practice: [facility] Chief Complaint/Reason for Call: Need call back concerning MRI auth information. Please advise. Best time of day caller can be reached: any Patient advised that office/PCP has 24-48 business hours to return their call: No * Telephone Encounter - Alin Merrill - 04/03/2023 3:54 PM EST Name of caller: Jen Contact phone number: [phone] Relationship to Patient: patient Provider: Lin Practice: [facility] Chief Complaint/Reason for Call: Pt states at 03/26 appt it was discussed she would like MRI order faxed to [facility] but they never received the order. Pt expressed a lot of frustration about the mixup stating things like this always happen at this office. Called [facility] and obtained fax [phone] and sent MRI order. Received confirmation that RightFax was successfully sent. Documenting for record of encounter. Best time of day caller can be reached: n/a Patient advised that office/PCP has 24-48 business hours to return their call: N/A documented in this [facility]01-15-2024 Miscellaneous Notes* Telephone Encounter - Maylin Maciel - 04/06/2023 2:12 PM EST Name of caller: Scheduling [facility] Contact phone number: [phone] Relationship to Patient: [facility] Provider: Dr. Ceballos Practice: [facility] Chief Complaint/Reason for Call: Need call back concerning MRI auth information. Please advise. Best time of day caller can be reached: any Patient advised that office/PCP has 24-48 business hours to return their call: No * Telephone Encounter - Alin Merrill - 04/03/2023 3:54 PM EST Name of caller: Jen Contact phone number: [phone] Relationship to Patient: patient Provider: Lin Practice: [facility] Chief Complaint/Reason for Call: Pt states at 03/26 appt it was discussed she would like MRI order faxed to [facility] but they never received the order. Pt expressed a lot of frustration about the mixup stating things like this always happen at this office. Called [facility] and obtained fax [phone] and sent MRI order. Received confirmation that RightFax was successfully sent. Documenting for record of encounter. Best time of day caller can be reached: n/a Patient advised that office/PCP has 24-48 business hours to return their call: N/A documented in this encounterSOhioHealth Marion General HospitalLwflhh78-95-6933 Telephone encounter Note* Telephone Encounter - Maylin Maciel - 04/06/2023 2:12 PM EST Name of caller: [facility] Contact phone number: [phone] Relationship to Patient: [facility] Provider: Dr. Ceballos Practice: [facility] Chief Complaint/Reason for Call: Need call back concerning MRI auth information. Please advise. Best time of day caller can be reached: any Patient advised that office/PCP has 24-48 business hours to return their call: No [facility] HospitalDrvvqo07-82-5885 Telephone encounter Note* Telephone Encounter - Alin Bonlila Desirae - 04/03/2023 3:54 PM EST Name of caller: Jen Contact phone number: [phone] Relationship to Patient: patient Provider: Lin Practice: [facility] Chief Complaint/Reason for Call: Pt states at 14 appt it was discussed she would like MRI order faxed to [facility] but they never received the order. Pt expressed a lot of frustration about the mixup stating things like this always happen at this office. Called [facility] and obtained fax [phone] and sent MRI order. Received confirmation that RightFax was successfully sent. Documenting for record of encounter. Best time of day caller can be reached: n/a Patient advised that office/PCP has 24-48 business hours to return their call: N/A [facility] HospitalWleonv87-43-4036 Miscellaneous Notes* Telephone Encounter - Alin Merrill - 04/03/2023 3:54 PM EST Name of caller: Jen Contact phone number: [phone] Relationship to Patient: patient Provider: Lin Practice: [facility] Chief Complaint/Reason for Call: Pt states at 03/26 appt it was discussed she would like MRI order faxed to [facility] but they never received the order. Pt expressed a lot of frustration about the mixup stating things like this always happen at this office. Called [facility] and obtained fax [phone] and sent MRI order. Received confirmation that RightFax was successfully sent. Documenting for record of encounter. Best time of day caller can be reached: n/a Patient advised that office/PCP has 24-48 business hours to return their call: N/A documented in this encounterSOhioHealth Marion General HospitalYosbqk30-76-1777 Telephone encounter Note* Telephone Encounter - Alin Merrill - 04/03/2023 3:42 PM EST . [facility] HospitalSamqll91-64-4550 Miscellaneous Notes* Telephone Encounter - Alin Irene Merrill - 04/03/2023 3:42 PM EST . documented in this encounterSOhioHealth Marion General HospitalMnnaiz18-91-6966 History of Present illness Narrative* Bjorn Tejada PA-C - 03/26/2023 10:40 AM EST Images from the original note were not included. [facility] [address] [facility] [address] Dept: [phone] Dept Loc: [phone] Visit type: Established Patient Reason for Visit: got flu shot and pain in the injection site (Got vaccine Thursday before ) Assessment and Plan 1. Chronic left shoulder pain - MR shoulder left wo IV contrast - Diclofenac Sodium (Voltaren) 1 % gel; Apply 2 g topically 2 times daily., Starting [facility] 03/26/2023, Normal 2. Obesity (BMI 30-39.9) - Tirzepatide-Weight Management (Zepbound) 2.5 MG/0.5ML solution auto-injector; Inject 2.5 mg underthe skin 1 (one) time per week., Starting [facility] 03/26/2023, Normal -Patient has left shoulder pain [...] underlying history of ulcerative colitis contacted the [facility] on03/19 for concerns of left arm pain. Patient reports that she had gotten her flu vaccination on around thanksgiving in the left arm and ever since [...] just recently got the flu shot around Thanksgiving time and now she is having severe [...] Age of Onset Diabetes Mother insulin Other (03216) Mother age 62 of complications of PUD [...] prior to signing but minor errors in clinic lead may have occurred. documented in this [facility]01-04-2024 History of Present illness Narrative* Bjorn Tejada PA-C - 03/26/2023 10:40 AM EST Images from the original note were not included. [facility] [address] [place] [address] [address] [facility] [address] Dept: [phone] Dept Loc: [phone] Visit type: Established Patient Reason for Visit: got flu shot and pain in the injection site (Got vaccine Thursday before ) Assessment and Plan 1. Chronic left shoulder pain - MR shoulder left wo IV contrast - Diclofenac Sodium (Voltaren) 1 % gel; Apply 2 g topically 2 times daily., Starting [facility] 03/26/2023, Normal 2. Obesity (BMI 30-39.9) - Tirzepatide-Weight Management (Zepbound) 2.5 MG/0.5ML solution auto-injector; Inject 2.5 mg underthe skin 1 (one) time per week., Starting [facility] 03/26/2023, Normal -Patient has left shoulder pain [...] underlying history of ulcerative colitis contacted the [facility] on03/19 for concerns of left arm pain. [...] just recently got the flu shot around Thanksgiving time and now she is having severe and persistent pain with limited range of motion due to the pain. Initially denied any episode of injury or trauma but did report a fall about 10 years ago he stateslisa was having a hard time laying on [...] Age of Onset Diabetes Mother insulin Other (75828) Mother age 62 of complications of PUD [...] prior to signing but minor errors in clinic lead may have occurred. documented in this [facility]01-04-2024 Miscellaneous Notes* Addendum Note - Bjorn Tejada PA-C - 03/26/2023 10:40 AM ESTAddended by: BJORN TEJADA on: 03/27/2023 09:50 AM Modules accepted: Level of Service documented in this [facility]01-04-2024 Note* Addendum Note - Bjorn Tejada PA-C - 03/26/2023 10:40 AM ESTAddended by: BJORN TEJADA on: 03/27/2023 09:50 AM Modules accepted: Level of Service [facility] [id number] History and physical note Author Marisa Palm [facility] January 23, 2023 7:05am Note Date/Time January 23, 2023 7 :05am [facility] Medical Records Department [address] [place] [id number] History & Physical Exam 01/23/23 0705 MR#: [id number] Acct: [id number] Name: JEN HOLDER Rep #:[id number] : 1965 57 From: Marisa Palm MD PCP: Dr. Bhavesh Guerrero, DO Status:[facility] Location: [place] [address] History and Physical Date of Admission: 01/23/23 Date of Service: 12/29/22 MR#: [id number] Acct: [id number] Name: JEN HOLDER Rep #: [id number] : 1965 Provider: Dr. Marisa Palm MD Age/Sex: 57/F Location: [facility] Status: Signed Intake Vital Signs 07/30/2309:52 [...] mg PO DAILY 07/30/22 [History Confirmed 12/29/22] [facility] Medical History (Updated 12/29/22 @ 08:30 by Naren Qureshi) Acute pharyngitis, unspecified Anemia Anxiety Arthritis Back pain Blepharitis of right lower eyelid Conjunctivitis, right eye COVID-19 chastity trujillo manifesting chronic cough Diabetes Diarrhea Fatty liver [...] healthy appearing, comfortable and no acute distress HENMT Head: normocephalic and atraumatic Neck Neck: supple [...] question this time. Marisa Palm M.D. Pager: [phone] [facility] [address] [place] [address], [facility], [address] [place] [address] Office: 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 Bhavesh Guerrero, DO; Dr. Marisa Palm MD~ Signed ADDENDUM by Dr. Marisa Palm MD on 01/23/23 at 0705 Addendum I have examined the patient and the H&P has been reviewed. There are no clinicalchanges since date of exam. 01/23/23 0705<Electronically signed by Marisa Palm MD> Cosigner Signature (if applicable): cc: Dr. Bhavesh Guerrero, DO; Dr. Marisa Palm MD ~* Signed [facility] Work Phone: [phone]) 947-952111-03-2023 Procedure [facility] 12-17-2022 Telephone encounter Note* Telephone Encounter - Kamini Lemons - 12/17/2022 8:57 AM EDT Faxed referral, demo, ID and summary of care to: Dr. Collins Baez [address] [place] [address] Pt was informed in another TE by Alisarina Monae [facility] [id number] Miscellaneous Notes* Telephone Encounter - Kamini Lemons - 12/17/2022 8:57 AM EDT Faxed referral, demo, ID and summary of care to: Dr. Collins Baez [address] [place] [address] Pt was informed in another TE by [facility] * Telephone Encounter - Alonso Ratliff - [...] wants referral sent to [facility]. * Telephone Encounter - Anna Curiel - 12/10/2022 4:21 PM EDT Name of caller: Jen Holder Relationship to patient: Patient Contact phone number: [phone] Speciality referral requested for: General Surgery Diagnosis [...] specialist: to be advised Name of group/practice: [facility] Patient verified insurance covers referral: unknown Patient insurance: Maria Elena Ramos Has patient seen this specialist in the past: unknown Estimated time/date patient last saw the specialist: n/a documented in this encounterSOhioHealth Marion General HospitalOrqcgu74-98-6650 Telephone encounter Note* Telephone Encounter - Kamini Lemons - 12/17/2022 8:54 AM EDT Faxed referral, demo, ID and summary of care to: Dr. Collins Baez [address] [place] [address] [facility] HospitalZrukty94-86-4107 Miscellaneous Notes* Telephone Encounter - Kamini Lemons - 12/17/2022 8:54 AM EDT Faxed referral, demo, ID and summary of care to: Dr. Collins Baez [address] [place] [address] * Telephone Encounter - Alisa Monae MA - 12/16/2022 2:21 PM EDT Patient aware. Referral faxed. Patient was upset that she can not call right into the office. Stated the call center never gest the right information over the office. Advised patient to sign up for Street[employer] to be able to get a message right to the office. Link sent to email on file. * Telephone Encounter - Rupinder Aguilar - 12/16/2022 9:30 AM EDT New referral needed for General Surgery. Please return call to patient Name of caller: Jen Relationship to patient: patient Contact phone number: [phone] Speciality referral requested for: General Surgery Diagnosis or reason for referral: General Surgery Name of specialist: Dr. Baez Name of group/practice: [facility], [address] [place] [address] [address], [place] [phone] Patient verified insurance covers referral: Yes Patient insurance: [employer] Has patient seen this specialist in the past: No Estimated time/date patient last saw the specialist: n/a documented in this encounterSOhioHealth Marion General HospitalMyirgf09-04-5300 Telephone encounter Note* Telephone Encounter - Alisa Monae MA - 12/16/2022 2:21 PM EDT Patient aware. Referral faxed. Patient was upset that she can not call right into the office. Stated the call center never gest the right information over the office. Advised patient to sign up for Minil[employer]st to be able to get a message right to the office. Link sent to email on file. [facility] HospitalKygyhq52-62-9669 Telephone encounter Note* Telephone Encounter - Rupinder Aguilar - 12/16/2022 9:30 AM EDT New referral needed for General Surgery. Please return call to patient Name of caller: Jen Relationship to patient: patient Contact phone number: [phone] Speciality referral requested for: General Surgery Diagnosis or reason for referral: General Surgery Name of specialist: Dr. Baez Name of group/practice: [facility], [address] [facility] [address], [place], [place] [phone] Patient verified insurance covers referral: Yes Patient insurance: [employer] Has patient seen this specialist in the past: No Estimated time/date patient last saw the specialist: n/a [facility] Ojfoko96-15-2438 Telephone encounter Note* Telephone Encounter - Alonso Ratliff - 12/12/2022 10:50 AM EDT Will send to Kamini to proceed with scheduling [facility] Fdlfrl28-29-9161 Telephone encounter Note* Telephone Encounter - Lata Faustin MA - 12/11/2022 3:42 PM EDT Placed call to patient. Two patient identifers confirmed. Was able to speak to patient. All concerns in message have been addressed. No questions at this time. Call ended Patient wants referral sent to [facility]. [facility] [id number] Telephone encounter Note* Telephone Encounter - Anna Curiel - 12/10/2022 4:21 PM EDT Name of caller: Jen Holder Relationship to patient: Patient Contact phone number: [phone] Speciality referral requested for: General Surgery Diagnosis [...] specialist: to be advised Name of group/practice: [facility] Patient verified insurance covers referral: unknown Patient insurance: Maria Elena Ramos Has patient seen this specialist in the past: unknown Estimated time/date patient last saw the specialist: n/a [facility] HospitalGzacvn21-25-9100 History of Present illness Narrative* Bjorn Tejada PA-C - 11/18/2022 8:00 AM EDT Images from the original note were not included. [facility] [address] [facility] [address] Dept: [phone] Dept Loc: [phone] Visit type: Established Patient Reason for Visit: Employment Physical Assessment and Plan 1. Eczema, unspecified type Comments: Chronic in nature both hands appears to be well controlled requesting refill of Kenalog Orders: - triamcinolone (Kenalog) 0.5 % cream; Apply topically 2 times daily., Starting Thu11/18/2022, Normal 2. GERD without esophagitis Comments: History of the same has tried nyns-gjv-niqvdgf medicine with very little success suspects cause [...] full complement of blood work done through [facility] recently. I did review the blood work [...] nausea vomiting. Mammogram and female exam through [employer] Review of Systems Constitutional: Positive for fatigue. [...] Age of Onset Diabetes Mother insulin Other (63661) Mother age 62 of complications of PUD - etohism Crohn's disease Mother Alcohol abuse Mother Osteoporosis Mother Atrial fibrillation Father Kumar Small CHF High Blood Pressure Father Kumar Small Colon cancer Father Kumar Samll 80 age 87 Objective BP 120/83 (BP [...] prior to signing but minor errors in clinic lead may have occurred. documented in this [facility]08-22-2023 Telephone encounter Note* Telephone Encounter - Monserrat Martines RN - 11/11/2022 4:05 PM EDT Duplicate chart [facility] HospitalItsmgo14-68-9312 Miscellaneous Notes* Telephone Encounter - Monserrat Martines RN - 11/11/2022 4:05 PM EDT Duplicate chart documented in this [facility]08-22-2023 Telephone encounter Note* Telephone Encounter - Monserrat Martines RN - 11/11/2022 4:00 PM EDT S: Patient spoke with [facility] nurse regarding Pt needs a work physical. [...] Protocols used: Information Only Call - No [id number] [facility] HospitalZhapxg84-60-7259 Miscellaneous Notes* Telephone Encounter - Monserrat Martines RN - 11/11/2022 4:00 PM EDT S: Patient spoke with [facility] nurse regarding Pt needs a work physical. B: Onset of symptoms/concern today. A: Pt reports needs a physical for work. R: Pt scheduled with Khushi Teajda for 11/18 per pt's request, Insurance verified and pt advised to arrive 15 min early and to bring insurance card/photo ID and any current meds. Patient understands care advice. No further needs at this time. Reason for Disposition Information only question and nurse able to answer Protocols used: Information Only Call - No [id number]-[id number] documented in this [facility]12-29-2022 Telephone encounter Note* Telephone Encounter - Jigna Main - 03/20/2022 12:43 PM EST Name of caller: Jen Contact phone number: [phone] Relationship to Patient: patient Provider: Dr. Guerrero Practice: [facility] Chief Complaint/Reason for Call: Pt called into the office stated she called last week to have a academic manager return her call; however, there is not TE in the chart. I called the back office line and Tash at the office was able to take the call and the pt was soft transferred. Thank you Best time of day caller can be reached: any Patient advised that office/PCP has 24-48 business hours to return their call: No [facility] HospitalWjwjvz33-78-4568 Miscellaneous Notes* Telephone Encounter - Jigna Gonzalez Etelvina - 03/20/2022 12:43 PM EST Name of caller: Jen Contact phone number: [phone] Relationship to Patient: patient Provider: Dr. Guerrero Practice: [facility] Chief Complaint/Reason for Call: Pt called into the office stated she called last week to have a academic manager return her call; however, there is not TE in the chart. I called the back office line and Tash at the office was able to take the call and the pt was soft transferred. Thank you Best time of day caller can be reached: any Patient advised that office/PCP has 24-48 business hours to return their call: No documented in this [facility]10-20-2021 NoteHNO ID: [id number] Author: Alonso Arguelles MD Service: ? Author Type: Physician Type: Progress Notes Filed: 01/09/2021 8:46 AM Note Text: Referring Physician: SELF CC: possible neuropathy HPI: Jen Holder is a 55 year-old right-handed woman who comes to clinic today regarding possible neuropathy. She reports in about 2017 she noted some loss of sensation, stinging, burning and pins and needles in both feet, mostly in toes. This got more intense over time and socks were hard to wear. She had no specific gait problems or weakness. No symptoms above the ankles. Some imbalance if she closes her eyes in the shower though this is manager intermediate (possibly since R ankle fracture in 2010). [...] random biopsies - COLONOSCOP W/ OR W/O [facility] SPEC 03/02/2012 Colonoscopy [facility] out pt repeat 2 years - COLONOSCOP W/ OR W/O [facility] SPEC 03/07/2014 Colonoscopy [facility] - COLONOSCOP W/ OR W/O [facility] SPEC 09/13/2018 Colonoscopy - EXCISION [...] throughout all extremity muscle (more content not included)...[facility]04-02-2021 NoteHNO ID: [id number] Author: Zhen Bains Service: ? Author Type: [...] in 6 months. 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 COVID-19 Reason for Visit Fatty liver Obesity Ulcerative colitis [facility] Work Phone: Chief complaint+Reason for visit Narrative* Chief Complaint COVID-19 RIGHT EYE IRRITATION TWISTED R KNEE RIGHT KNEE Reason for Visit Blepharitis of right lower eyelid Conjunctivitis, right eye COVID-19 long hauler manifesting chronic cough Strain of right knee Internal derangement of right knee Right knee injury [facility] Work Phone: Chief complaint+Reason for visit Narrative* [...] Right knee pain Osteoarthritis of right knee [facility] Work Phone: Discharge summary Author Marisa Palm [facility] January 23, 2023 8:50am Note Date/Time January 23, 2023 8 :29am [facility] Medical Records Department [address] [place] [address] Instructions for Home/Discharge Instructions 01/23/23 0827 MR#: [id number] Acct: [id number] Name: JEN HOLDER Rep #:[id number] : 1965 57 From: Marisa Palm MD PCP: Dr. Bhavesh Guerrero, Status:[facility] Discharge Instructions Diet Discharge Diet: Light diet [...] weeks; after 5 PM and on call [phone] with any concerns. Test Results: Test results [...] AFFECTED AREA OFYHANDS 2 TIMES A DAY Referrals / Follow Up: Bhavesh Guerrero DO [Primary Care Provider] - Disposition Disposition (needs filled in before D/C Order can be placed): Home, Self Care 01/23/23 0850<Electronically signed by Marisa Palm MD>Marisa Palm MD CC: Dr. Bhavesh Guerrero DO ~ Signed [facility] Work Phone: Evaluation note* Diagnosis Onset Date Resolution Status Fatty liver chronic Obesity chronic Ulcerative colitis chronic [facility] Work Phone: Evaluation note* Diagnosis Onset Date Resolution Status Blepharitis of right lower eyelid acute Conjunctivitis, right eye ac nome COVID-19 long hauler manifesting chronic cough acute Strain of right knee acute Internal derangement of right knee acute Right knee injury acute [facility] Work Phone: Evaluation note* Diagnosis Onset Date Resolution Status Blepharitis of right lower eyelid acute Conjunctivitis, right eye ac nome COVID-19 long hauler manifesting chronic cough acute Strain of right knee acute Internal derangement of right knee acute Right knee injury acute MCL sprain of right knee non eactive Obesity, Class II, BMI 35-39.9 noneactive Right knee pain noneactive Osteoarthritis of right knee noneactive [facility] Work Phone: Evaluation note* Diagnosis Eczema, unspecified type GERD without esophagitis Esophageal reflux [facility] Diagnosis Onset Date Resolution Status Lipoma of back acute [facility] Work Phone: Evaluation note* Diagnosis Chronic left shoulder pain- Primary Pain in joint, shoulder region Obesity (BMI 30-39.9) [facility] Diagnosis Chronic left shoulder pain- Primary Pain in joint, shoulder region Obesity (BMI 30-39.9) [facility] Diagnosis COVID-19- Primary Ulcerative colitis without complications, unspecified location (HCC) [facility] Diagnosis Hypersomnolence- Primary Hypersomnia, unspecified Dyspnea, unspecified type Hyperuricemia Other abnormal blood chemistry Urinary frequency Insomnia, unspecified type Eczema, unspecified type Obesity (BMI 35.0-39.9 without comorbidity) [facility] Diagnosis Acute cough- Primary Encounter [...] Abdominal pain, periumbilic [facility] Diagnosis Acute cough- Primary Encounter for screening mammogram for malignant neoplasm of breast GERD without esophagitis Esophageal reflux Nontraumatic incomplete tear of left rotator cuff Hypersomnolence- Primary Hypersomnia, unspecified Dyspnea, unspecified type Hyperuricemia Other abnormal blood chemistry Urinary frequency Insomnia, unspecified type Eczema, unspecified type Obesity (BMI 35.0-39.9 without comorbidity) [facility] Diagnosis Acute cough- Primary Encounter [...] or maintaining sleep [facility] Diagnosis Acute cough- Primary Encounter [...] Insomnia, unspecified type [facility] Diagnosis Vocal cord dysfunction Other diseases of vocal cords [facility] Diagnosis Acute cough- Primary Encounter for [...] Labile essential hypertension documented in this encounter [facility]* Diagnosis Acute cough- Primary [...] Other abnormal glucose [facility] Diagnosis Acute cough- Primary Encounter [...] of digestive disease documented in this encounter [facility] note* Diagnosis Vocal cord dysfunction- Primary Other diseases of vocal cords [facility] Diagnosis Acute cough- Primary Encounter for [...] insulin (HCC)- Primary documented in this encounter [facility] note* Diagnosis Acute cough- Primary Encounter for [...] insulin (HCC)- Primary documented in this encounter [facility] for referral (narrative)No reason for [facility]: Reason for visit Narrative* Speech Therapy (Routine) - Authorized Specialty Diagnoses / Procedures Referred By Contac t Referred To Contact Speech Pathology / Speech Therapy Diagnoses Collins Deleon MD Procedures VOCAL CORD DYSFUNCTION Collins Deleon MD [address] [facility] [place] [address] Phone: tel: fax: Dottie Escudero, [facility] [employer] [address] [place] [address] Phone: tel: fax: Referral ID Status Reason Start Date Expiration Date V isits Requested Visits Authorized [id number] Authorized 07/21/2024 03/22/2025 50 50 [facility] Summary Purpose Family History No Family History Records Found Relationship Condition Age at Onset Recorded Date/T [...] (CVA) Unknown Atrial fibrillation Unknown Advance Directives No Advanced Directives Records Found Advance Directive Response Recorded Date/ Time Advance Directives No February 9:57am Living Will No March 27 3:56pm Power of Commercial Real Estate Appraiser No March 27, 2 023 3:56pm Advance Directive Response Recorded Date/ Time Advance Directives No February 10:57am Living Will No March 27 3 4:56pm Power of Commercial Real Estate Appraiser No March 27, 2 023 4:56pm Advance Directive Response Recorded Date/ Time Advance Directives No July 30 10:52am Living Will No January 12 3:49pm Power of Commercial Real Estate Appraiser No January 12, 2023 3:49pm Advance Directive [...] CHEST PAIN, HX OF GALLSTONES August 12 2 025 6:28am GALLBLADDER August 22, 2024 2:56p m Reason for Visit Admit Date Abnormal EKG May 04, 2024 2:56pm Reason for Referral Specialty Diagnoses / Procedures Referred By Contac t Referred To Contact Diagnoses Obesity (BMI 30-39.9) Bjorn Tejada PA-C [address] [place] [address] Referral ID Status Reason Start Date Expiration Date Visits Re quested Visits Authorized [id number] Closed 1 1 Specialty Diagnoses / Procedures Referred By Contac t Referred To Contact Radiology Diagnoses Chronic left shoulder pain Procedures MR shoulder left wo IV contrast Bjorn Tejada PA-C [address] [place] [address] Referral ID Status Reason Start Date Expiration Date V isits Requested Visits Authorized [id number] Pending Review 03/26/2023 03/25/2024 1 1 Specialty Diagnoses / Procedures Referred By Contac t Referred To Contact Sleep Medicine Diagnoses Hypersomnolence Dyspnea, unspecified type Procedures Sleep study with pap titration Bjorn Tejada PA-C [address] [place] [address] Referral ID Status Reason Start Date Expiration Date V isits Requested Visits Authorized [id number] Pending Review 01/05/2024 12/30/2024 1 1 Specialty Diagnoses / Procedures Referred By Contac t Referred To Contact Diagnoses Hypersomnolence Dyspnea, unspecified type Procedures Complete PFT pre and post bronchodilator Bjorn Tejada PA-C [address] [place] [address] Referral ID Status Reason Start Date Expiration Date V isits Requested Visits Authorized [id number] Pending Review 01/05/2024 12/30/2024 1 1 Additional Source Comments INFORMATION SOURCE (unrecogn ized section and content) DATE [facility] DATE CREATED AUTHOR AUTHOR'S ORGANIZ ATION 04/20/[address] [facility] DATE CREATED AUTHOR AUTHOR'S ORGANIZ ATION 08/20/2024 [facility] DATE CREATED AUTHOR AUTHOR'S ORGANIZ ATION 09/30/2024 [facility] DATE CREATED AUTHOR AUTHOR'S ORGANIZ ATION 10/02/2024 [facility] Care Teams (unrecognized sec tion and content) [...] Active Spencer PUENTES PA Attending Provider Active Translator/Interpreter Relationship Specialty Start Date End Date Bhavesh Guerrero, DO [address] [place] [id number] PCP - General 10/31/14 Translator/Interpreter Relationship Specialty Start Date End Date Bhavesh Guerrero Smith, DO [address], [place] [phone] PCP - General 10/31/14 Translator/Interpreter Relationship Specialty Start Date End Date Rolando Ceballos, DO [address], [place] [id number] PCP - General Family Medicine 11/18/22 Translator/Interpreter Relationship Specialty Start Date End Date Rolando Ceballos, DO [address] [place], [place] [phone] PCP - General Family Medicine 11/18/22 Translator/Interpreter Relationship Specialty Start Date End Date Rolando Ceballos, DO [address] [place], [place] [phone] PCP - General Family Medicine 11/18/22 Team Status: Inactive Member Role Status Dates Dr. Bhavesh Guerrero DO Primary Care Provider Active Dr. Marisa Palm MD Attending Provider Active Dr. Rolando Ceballos , Referring Provider Active Team Status: Active Member [...] Active Health Risk Assessment Attending Provider, Referring Edie bingham Active Translator/Interpreter Relationship Specialty Start Date End Date Rolando Ceballos, DO [address] [place] [phone] PCP - General Family Medicine 11/18/22 Translator/Interpreter Relationship Specialty Start Date End Date Rolando Ceballos, DO [address] [place] [phone] PCP - General Family Medicine 11/18/22 Translator/Interpreter Relationship Specialty Start Date End Date Rolando Ceballos, DO [address] [place] [phone] PCP - General Family Medicine 11/18/22 Translator/Interpreter Relationship Specialty Start Date End Date Rolando Ceballos, DO [address] [place] [phone] PCP - General Family Medicine 11/18/22 Translator/Interpreter Relationship Specialty Start Date End Date Rolando Ceballos, DO [address] [place] [phone] PCP - General Family Medicine 11/18/22 Translator/Interpreter Relationship Specialty Start Date End Date Rolando Ceballos, DO [address] [place] [phone] PCP - General Family Medicine 11/18/22 Translator/Interpreter Relationship Specialty Start Date End Date Rolando Ceballos, DO [address] [place] [phone] PCP - General Family Medicine 11/18/22 Translator/Interpreter Relationship Specialty Start Date End Date Rolando Ceballos, DO [address] [place] [phone] PCP - General Family Medicine 11/18/22 Translator/Interpreter Relationship Specialty Start Date End Date Rolando Ceballos, [address] [place] [phone] PCP - General Family Medicine 11/18/22 Translator/Interpreter Relationship Specialty Start Date End Date Rolando Ceballos, DO [address] [place] [address] PCP - General Family Medicine 11/18/22 Translator/Interpreter Relationship Specialty Start Date End Date Bhavesh Guerrero DO [address] [place] [phone] PCP - General 10/31/14 Translator/Interpreter Relationship Specialty Start Date End Date Rolando Ceballos, DO [address] [place] [address] PCP - General Family Medicine 11/18/22 Translator/Interpreter Relationship Specialty Start Date End Date Rolando Ceballos, DO [address] [place] [address] PCP - General Family Medicine 11/18/22 Translator/Interpreter Relationship Specialty Start Date End Date Rolando Ceballos, DO [address] [place] [address] PCP - General Family Medicine 11/18/22 Translator/Interpreter Relationship Specialty Start Date End Date Rolando Ceballos, DO [address] [place] [phone] PCP - General Family Medicine 11/18/22 Translator/Interpreter Relationship Specialty Start Date End Date Rolando Ceballos DO [address] [place] [address] PCP - General Family Medicine 07/25/24 Translator/Interpreter Relationship Specialty Start Date End Date Rolando Ceballos DO [address] [place] [phone] PCP - General Family Medicine 11/18/22 Translator/Interpreter Relationship Specialty Start Date End Date Rolando Ceballos DO [address] [place] [address] PCP - General Family Medicine 11/18/22 Translator/Interpreter Relationship Specialty Start Date End Date Rolando Ceballos DO [address] [place] [address] PCP - General Family Medicine 11/18/22 Translator/Interpreter Relationship Specialty Start Date End Date Rolando Ceballos DO [address] [place] [address] PCP - General Family Medicine [...] 2024 DHAVAL García Other Provider [facility]. Cody Lee MD Attending Provider [...] 2024 End: August 12, 2024 Dr. Rolando Cebalols DO Attending Provider Active Start: August 12, 2024 End: August 12, 2024 Dr. Rolando Ceballos DO Referring Provider Active Start: August 12, 2024 End: August 12, 2024 Translator/Interpreter Relationship Specialty Start Date End Date Rolando Ceballos DO [address] [phone] PCP - General Family Medicine 07/25/24 Team [...] August 22, 2024 End: August 22, 2024 Translator/Interpreter Relationship Specialty Start Date End Date Rolando Ceballos DO [address] [place] [address] PCP - General Family Medicine 11/18/22 Translator/Interpreter Relationship Specialty Start Date End Date Rolando Ceballos DO [address] [place] [address] PCP - General Family Medicine 11/18/22 [...] August 22, 2024 End: August 22, 2024 Translator/Interpreter Relationship Specialty Start Date End Date Rolando Ceballos DO [address] [place] [address] PCP - General Family Medicine 11/18/22 Translator/Interpreter Relationship Specialty Start Date End Date Rolando Ceballos DO [address] [facility] [address] [place] [address] PCP - General Family Medicine [...] Date Comments Pt asked to talk to academic manager 03/20/2022 Reason Comments Annual Exam Flu [...] Onset Date Comments Referral 09/27/2024 Dietitian at [facility] Scheduled Active and Recently Administ ered Medications [...] BE BASED ON THE PRIMARY CLINICAL RECORDS. [facility] [employer] [facility]. provides no warranty or guarantee of the accuracy or completeness of information in this document.
[2024-10-03] MEDS: Lactated Ringers 1,000 ML 15 ML IV (06:44)
[2024-10-03] MEDS: INDOCYANINE GREEN 3.75 MG in Syringe 1.5 ML 999 MG IV (06:46)
--- NOTE | 2024-10-03 07:08 | PRE.ANES_ITS ---
ASA Classification* ASA Classification ASA Classification: 3 Assessment & Plan Anesthesia* Anesthesia Assessment Anesthesia Assessment: Discussed sedation and/or anesthesia options, risks, benefits, and alternatives with patient/parents/legal guardian/POA. Questions invited. The patient/parents/legal guardian/POA seems to understand and agrees to proceed with anesthesia plan. Reviewed the physical assessment, medical history, allergy history and patient home medications list prior to surgery/procedure/anesthetic and documented any changes. Performed airway and anesthesia risk assessments. Anesthesia Type Anesthesia Type: General (Discussed the risk of vocal cord injury, sore throat, injury to teeth gums or lips. Discussed the low risk of GA, CVA. Discussed the low risk of postoperative ventilation.) History Source History Obtained from:: Patient and Chart Anesthesia Focused Assessment* Temperature: 97.4 F Pulse Rate: 87 Blood Pressure: 162/110 Respiratory Rate: 16 Pulse Ox: 97 Oxygen Delivery Method: Room Air Airway Assessment Mouth opens: 2 cm Mallampati Score: III Teeth Condition: Caps/Crowns (back left bottom crown recently replaced) Neck Range of motion (ROM): Full ROM Comment: Patient has a history of vocal cord dyskinesia however she has had multiple general anesthetics in the past and has not had any issues. We did discuss the potential risk of vocal cord injury low however. Patient reports that she understands. Labs Anesthesia Preop lab: CBC WBC 9.3 K/mm3 (4.4-11.0) 09/28/24 10:16 09/28/24 RBC 4.42 M/mm3 (4.2-5.4) 09/28/24 10:16 09/28/24 Hgb 12.9 g/dL (12.0-15.0) 09/28/24 10:16 09/28/24 Hct 39.9 % (37-47) 09/28/24 10:16 09/28/24 Plt Count 312 K/mm3 (150-450) 09/28/24 10:16 09/28/24 CHEMISTRY Potassium 4.1 mmol/L (3.3-5.1) 09/28/24 10:16 09/28/24 Sodium 138 mmol/L (133-145) 09/28/24 10:16 09/28/24 Phosphorus 3.4 mg/dL (2.5-4.9) 01/01/24 07:07 01/01/24 BUN 17 mg/dL (4-19) 09/28/24 10:16 09/28/24 Creatinine 0.67 mg/dL (0.70-1.20) L 09/28/24 10:16 Glucose 151 mg/dL (70-99) H 09/30/24 06:42 09/30/24 POC Glucose 157 mg/dL (74-106) H 10/03/24 06:30 10/03/24 TSH 1.88 uIU/mL (0.358-3.74) 11/10/18 06:58 COAG PT 12.9 SECONDS (11.7-14.9) 01/10/16 09:47 Urine Test Negative Negative 01/16/16 06:05 01/16/16 Pre-Assessment Diagnosis/Proposed Procedure Planned Operative Procedure(s): ROBOTIC CHOLECYSECTOMY Anesthesia History Anesthesia History - strategic development manager: Anesthesia History - strategic development manager Hx Hospitalization No 09/27/24 08:42 Any Problems With Anesthesia No 09/27/24 08:42 Cholinesterase deficiency No 09/27/24 08:42 You/Your Family Experience No 09/27/24 08:42 fever (hyperthermia) with Relationship Recent Exposure to Contagious No 10/03/24 06:39 Disease Does patient have nerve No 09/27/24 08:42 stimulator Patient instructed to have device shut off --Does patient have Pacemaker No 10/03/24 06:40 or ICD? When Was Last Pacemaker Check QUESTION #4 FULL TEXT: You/Your Family Experience fever (hyperthermia) with Anesthesia Last Oral Intake Last Oral intake: Last Oral Intake NPO since 00:00 10/03/24 06:40 Meds taken in AM with sips of Yes 10/03/24 06:40 water? Meds patient instructed to omeprazole 10/03/24 06:40 take am of surgery PONV PONV - strategic development manager: PONV - strategic development manager Female Yes 09/27/24 08:42 HX of Motion Sickness Yes 09/27/24 08:42 HX of N/V After Surgery No 09/27/24 08:42 Non-Smoker Yes 09/27/24 08:42 Duration of Surgery greater Yes 09/27/24 08:42 than 60 minutes Number of Risk Factors 4 09/27/24 08:42 PONV Score Severe Risk 09/27/24 08:42 Height & Weight Height & Weight: Anesthesia: Height & Weight Height 5 ft 6 in 10/03/24 06:40 Weight: 113 kg 10/03/24 06:40 Body Mass Index (BMI) 40.1 10/03/24 06:40 Respiratory Assessment Respiratory Assessment - strategic development manager: Respiratory Tract Infection Hx - strategic development manager Hx Respiratory Tract Infection No 09/27/24 08:42 STOP Sleep Apnea STOP Sleep Apnea - strategic development manager: STOP Sleep Apnea - strategic development manager Hx Hypertension No 09/27/24 08:42 Hx Sleep Apnea Yes 09/27/24 08:42 CPAP Yes 09/27/24 08:42 BIPAP No 09/27/24 08:42 Do you snore loudly (louder No 09/27/24 08:42 than talking or can be heard Do you often feel tired/ No 09/27/24 08:42 fatigued/ sleepy during daytime? Has anyone observed you stop No 09/27/24 08:42 breathing during sleep? STOP Results Positive 09/27/24 08:42 QUESTION #5 FULL TEXT : Do you snore loudly (louder than talking or can be heard through closed doors)? Tobacco Use History Tobacco Use History - strategic development manager: Tobacco Use History - strategic development manager Tobacco Use Smoking Status Former smoker 09/27/24 08:42 Hx Tobacco Use No 09/27/24 08:42 Years Smoking Packs Smoked per Day Smoking Cessation Date was Yes - quit smoking within 15 09/27/24 08:42 within the last 15 years years Hx Smoking Cessation Date Hx Smoking Cessation No 09/27/24 08:42 Counseling Hematologic Medial History Hematologic Hx - strategic development manager: Hematologic Medical Hx - documentation consultant Hx of Blood Transfusion No 09/27/24 08:42 Hx of Transfusion in last 3 No 09/27/24 08:42 Months Date of Last Transfusion (if within last 3 months) Ever experience any problems No 09/27/24 08:42 with transfusion(s)? Specify any problems Hx of Preganancy in last 3 No 09/27/24 08:42 Months Nurse Filling Out Transfusion [id number] 09/27/24 08:42 & Questions: Date: 09/27/24 09/27/24 08:42 Time: 08:45 09/27/24 08:42 Patient unable to answer at this time (ie. confused, unrespo /Reproduction History /Reproductive History - strategic development manager: /Reproductive Hx- strategic development manager Hx Now Gestational Age (in weeks): EDC: Hx Hx Para Hx Section SAB No 01/12/23 15:49 Active Medications Active Medications: Current Medications Generic Name Dose Route Start Last Admin Trade Name Fredee dee PRN Reason Stop Dose Admin Indocyanine Green 3.75 mg/ N/A 1.5 mls @ 999 mls/hr 10/03/24 07:30 10/03/24 06:46 IV 10/03/24 07:31 999 mls/hr PREOP ONE Administration Cefazolin Sodium 2 gm/ Sodium 110 mls @ 200 mls/hr 10/03/24 07:30 Chloride IV 10/03/24 08:02 INTRAOP ONE Lactated Ringer's 1,000 mls @ 15 mls/hr 10/03/24 06:00 10/03/24 06:44 IV 15 mls/hr .Q48H HECTOR Administration PFSH Medical History History of Clostridium difficile infection History of steroid therapy Vocal cord dysfunction History of echocardiogram Chest pain Cardiology follow-up encounter Insomnia Nonspecific chest pain Abnormal EKG Gout Low iron History of hiatal hernia BMI 38.0-38.9,adult Adrenal nodule GERD (gastroesophageal reflux disease) Umbilical hernia Left shoulder pain Lipoma of back COVID-19 long hauler manifesting chronic cough Conjunctivitis, right eye Blepharitis of right lower eyelid Anxiety Diabetes Fatty liver Back pain Injury of back Migraine headache Hx of ulcerative colitis Heartburn Shortness of breath on exertion Leg cramps Anemia Arthritis Home Medications ?Medication ?Instructions ?Recorded ?Last Taken ?Type multivitamin with folic acid 400 1 tab PO DAILY 10/02/24 History mcg tablet calcium carbonate 500 mg PO DAILY 01/07/18 History potassium 99 mg tablet 99 mg PO DAILY 01/07/1809/20 History Lactobac no.2-Bifidobac no.1-S. 1 cap PO DAILY #30 cap s 12/21/20 10/02/24 Rx thermo 112.5 billion cell capsule (VSL#3) folic acid 1 mg tablet 1 mg PO DAILY 03/27/2210/02 History triamcinolone acetonide 0.5 % 1 applic topical PRN PRN EXCEMA 01/12/23 10/01/24 History topical cream omeprazole 40 mg capsule,delayed 40 mg PO QDAY #30 cap s 03/07/24 10/03/24 Rx release allopurinol 100 mg tablet 100 mg PO DAILY 03/18/24 History trazodone 50 mg tablet 50 mg PO QHS 03/18/24 History cholecalciferol (vitamin D3) 125 125 mcg PO QDAY 04/2510/02/24 History mcg (5,000 unit) capsule glimepiride 1 mg tablet 1 mg PO DAILY 09/27/2410/02 History Allergy/AdvReac Type Severity Reaction Status Date / Time latex Allergy Itching Verified 09/27/24 08:39 oxycodone (From Percocet) Allergy Itching Verified 09/27/24 08:39 Iodinated Contrast Media AdvReac NAUSEA,DIAP Verified 09/27/24 08:39 (Iodinated Contrast- Oral HORESIS and IV Dye) Sulfa (Sulfonamide AdvReac UNABLE TO Verified 09/27/24 08:39 Antibiotics) TAKE WITH CROHNS DISEASE Family History Mother Diabetes Thyroid disorder Father Colon cancer Heart disease Hypertension CVA (cerebral vascular accident) Afib Other Colitis Ulcerative colitis Surgical History S/P umbilical hernia repair, follow-up exam S/P excision of lipoma Hx of colonoscopy Hx of cystoscopy History of sinus surgery History of ankle surgery H/O: hysterectomy Social History Smoking Status: Former smoker alcohol intake: never Review of Systems (Anesthesia) ROS Narrative System reviewed and no additional complaints, except as documented. Physical Exam Const alert and oriented x3 Nutritional Appearance: obese Back/Spine normal ROM Neuro oriented x3 and moves all extremities
--- NOTE | 2024-10-03 07:09 | PCM.HP.STD ---
HPI - General General Date of Service: 10/03/24 HPI Narrative JEN HOLDER, is a 59 F who presents for robotic cholecystectomy due to cholelithiasis. Patient states she is only had a couple attacks since her office visit but none were that bad. Patient was recently diagnosed with diabetes and started on medication currently her A1c is in the upper eights but that was before medication. Office visit 08/22/2024 HPI HPI: 59-year-old female presents due to right upper quadrant pain and gallstones. Patient went to the ER on August 07 at [place] her AST and ALT were slightly elevated at that time at 40 and 35. Patient states her right upper quadrant pain currently is about 5/10 she did have some macaroni salad earlier today she has had this pain for about 2 hours currently. Patient has had a previous ultrasound showed a gallstone at the neck of the gallbladder no pericholecystic fluid or wall thickening and normal common bile duct. [facility] Medical History History of Clostridium difficile infection History of steroid therapy Vocal cord dysfunction History of echocardiogram Chest pain Cardiology follow-up encounter Insomnia Nonspecific chest pain Abnormal EKG Gout Low iron History of hiatal hernia BMI 38.0-38.9,adult Adrenal nodule GERD (gastroesophageal reflux disease) Umbilical hernia Left shoulder pain Lipoma of back COVID-19 long hauler manifesting chronic cough Conjunctivitis, right eye Blepharitis of right lower eyelid Anxiety Diabetes Fatty liver Back pain Injury of back Migraine headache Hx of ulcerative colitis Heartburn Shortness of breath on exertion Leg cramps Anemia Arthritis Home Medications ?Medication ?Instructions ?Recorded ?Last Taken ?Type multivitamin with folic acid 400 1 tab PO DAILY 12/26/15 10/02/24 History mcg tablet calcium carbonate 500 mg PO DAILY 01/07/18 10/02/24 History potassium 99 mg tablet 99 mg PO DAILY 01/07/18 10/02/24 History Lactobac no.2-Bifidobac no.1-S. 1 cap PO DAILY #30 caps 12/21/20 10/02/24 Rx thermo 112.5 billion cell capsule (VSL#3) folic acid 1 mg tablet 1 mg PO DAILY 03/27/22 10/02/24 History triamcinolone acetonide 0.5 % 1 applic topical PRN PRN EXCEMA 01/12/23 10/01/24 History topical cream omeprazole 40 mg capsule,delayed 40 mg PO QDAY #30 caps 03/07/24 10/03/24 Rx release allopurinol 100 mg tablet 100 mg PO DAILY 03/18/24 10/02/24 History trazodone 50 mg tablet 50 mg PO QHS 03/18/24 09/30/24 History cholecalciferol (vitamin D3) 125 125 mcg PO QDAY 04/25/24 10/02/24 History mcg (5,000 unit) capsule glimepiride 1 mg tablet 1 mg PO DAILY 09/27/24 10/02/24 History Allergy/AdvReac Type Severity Reaction Status Date / Time latex Allergy Itching Verified 09/27/24 08:39 oxycodone (From Percocet) Allergy Itching Verified 09/27/24 08:39 Iodinated Contrast Media AdvReac NAUSEA,DIAP Verified 09/27/24 08:39 (Iodinated Contrast- Oral HORESIS and IV Dye) Sulfa (Sulfonamide AdvReac UNABLE TO Verified 09/27/24 08:39 Antibiotics) TAKE WITH CROHNS DISEASE Family History Mother Diabetes Thyroid disorder Father Colon cancer Heart disease Hypertension CVA (cerebral vascular accident) Afib Other Colitis Ulcerative colitis Surgical History S/P umbilical hernia repair, follow-up exam S/P excision of lipoma Hx of colonoscopy Hx of cystoscopy History of sinus surgery History of ankle surgery H/O: hysterectomy Social History Smoking Status: Former smoker alcohol intake: never Vital Signs Vital Signs Vital Signs: 10/03/24 06:39 10/03/24 06:40 Temperature 97.4 F L Temperature Source Temporal Pulse Rate 87 Respiratory Rate 16 Respiratory Pattern Normal Blood Pressure 162/110 H Blood Pressure Mean 127 Blood Pressure Source Monitor Blood Pressure Position Sitting Blood Pressure Location Left Arm Pulse Ox 97 Oxygen Delivery Method Room Air Weight Weight: 249 lb 1.957 oz Body Mass Index (BMI) 40.1 Physical Exam Const alert, oriented x3 and no apparent distress HEENT normocephalic and head/scalp atraumatic Resp normal respiratory effort Cardio regular rate GI soft to palpation and non-tender; Negative for non-distended Palpation: Negative for guarding Extremity no clubbing, cyanosis or edema Skin no rashes or lesions noted Neuro CN's II-XII intact bilaterally Psych mental status grossly normal Results Lab / Micro Data 09/28/24 10:16 09/28/24 10:16 Labs: Laboratory Results - last 24 hr 10/03/24 06:30: POC Glucose 157 H Assessment & Plan Assessment/Plan (1) Gallstone: (2) RUQ pain: PLAN: Plan Reviewed the anatomy with the patient and discussed the procedure: laparoscopic/robotic cholecystectomy with possible cholangiograms, possible open. Review risks including but not limited to bleeding, infection, hernia, bile leak, retained gallstones requiring another procedure ERCP- Endoscopic Retrograde Cholangiopancreatography, injury to another organ (bile ducts, common bile duct, small bowel, etc.) and conversion to an open procedure. All questions were answered. Marisa Palm M.D. Pager: [phone] [facility] [address] [place] [address], [address] [place] [address] Office: [phone]
--- NOTE | 2024-10-03 07:30 | GALL_PTH ---
PATIENT: JEN HOLDER LOC: [facility] [place] U#:[id number] AGE/SX: 59/F ROOM: RE10/03/[address]: Dr. Marisa Palm MD : 1965 BED: DIS: 10/03/2024 SPEC #: [id number] RECD: 10/03/24 09:50 STATUS: MARY JO MURIEL #: [id number] YANA: 10/03/24 07:[address]: Marisa Palm DEPT: SURGICAL PATHOLOGY RECD BY: Damian Mott ENTERED: 10/03/24 11:15 SP TYPE: JAMIN VILLAGOMEZ DR: Dr. Rolando Ceballos DO Tissues: A - Gallbladder, NOS Procedures: Surgery Specimen Level III HEADER OPERATION: Robotic cholecystectomy PRE-OP DIAGNOSIS: Gallstone, right upper quadrant pain TISSUE SUBMITTED: A- Gallbladder MICROSCOPIC DIAGNOSIS A. Gallbladder, robotic assisted cholecystectomy: * Cholecystolithiasis * Chronic hypertrophic cholecystitis MICROSCOPIC DESCRIPTION Slides are reviewed. GROSS DESCRIPTION A. Received in formalin labeled with the patient's name and date of . Designated as gallbladder is a 6.8 x 2.5 x 1.8 cm pang-pink intact gallbladder with attached patent cystic duct (inked black, shaved). A lymph node is not present. The gallbladder contains minimal bile and a 2.0 cm bile-stained, bosselated biliary calculus. The mucosa is pink-red to green and granular with patchy ulceration with a maximum wall thickness of 0.1 cm. Foci of possible cholesterolosis are present. Lead Ingot Molder sections are submitted in [address] 10/03/2024 CPT:20318
[2024-10-03] MEDS: Bupiv/Epi 0.25% 30 ML Vial INFILT (08:44)
--- NOTE | 2024-10-03 08:45 | PCM.OPRPT ---
Operative Report (Standard) Operative Information Date of Procedure: 10/03/24 Pre-Operative Diagnosis: Cholelithiasis, right upper quadrant pain Post-Operative Diagnosis: Same Surgery/Procedure Performed: Robotic cholecystectomy filing and polishing supervisor: Yes Tin Stacker: Alessandra Major Tasks completed by head start assistant teacher: Opening & closing Type of Anesthesia: General/Supplemental RN Documented Start/Stop Times: Operation Date: 10/03/24 07:30 Case Time Into Pre-Op 10/03/24 05:55 Out of Pre-Op 10/03/24 07:20 Anesthesia Start 10/03/24 07:24 Into Room 10/03/24 07:24 Procedure Start 10/03/24 07:44 Procedure End 10/03/24 08:58 Anesthesia End 10/03/24 09:04 Out of Room 10/03/24 09:04 Into Recovery 10/03/24 09:05 Out of Recovery 10/03/24 09:40 Into Phase II Recovery 10/03/24 09:41 Out of Phase II 10/03/24 10:50 Procedure Start Time: 07:44 Procedure Stop Time: 08:58 Select all DRAINS/GRAFTS/IMPLANTS that apply: None Special Medications: Ancef 2 g IV x 1 Estimated Blood Loss: 5 cc Specimen collected: Yes Description of specimen(s) removed: Gallbladder Description of surgery: Indications: this is a 59 year-old female who developed abdominal pain/nausea/vomiting and on workup was found to have cholelithiasis, elevated LFTs (AST and ALT-- normal alk phos and total bilirubin (, with a normal common bile duct. Laparoscopic cholecystectomy was elected. Description procedure: The patient was placed on operating table in supine position. A timeout was completed verifying correct patient, procedure, site, position and special equipment prior to beginning procedure. General Anesthesia was induced. The abdomen was prepped and draped in usual sterile fashion. An incision was made in the natural skin line below the umbilicus. The fascia was elevated and incised. The peritoneum was elevated and incised. Entry into the peritoneum was confirmed visually and no bowel was noted in the vicinity of the incision. Solis trocar was placed. The abdomen was insufflated with carbon dioxide to a pressure of 12-15 mmHg. Patient tolerated insufflation well. The laparoscope was then inserted and abdomen inspected. No injuries from initial trocar placement were noted. Additional trochars were then inserted in the following locations 8 mm trocar left upper quadrant and 2 more 8 mm trochars in right lower quadrant and left lower quadrant. The abdomen was inspected no abnormalities were found. The table is placed in reverse Trendelenburg position with the right side up. Robot was docked. The adhesions between the gallbladder and omentum were taken down carefully. The dome of the gallbladder was grasped with atraumatic grasper passed through the lateral port and retracted over the dome of the liver. Infundibulum was then grasped with atraumatic grasper through the midclavicular port and retracted to the right lower quadrant. This maneuver exposed Calot's triangle. The peritoneum overlying the gallbladder infundibulum was then incised and cystic duct and artery identified and circumferentially dissected. ICG was used to visualize the cystic duct. The cystic duct and artery were then doubly clipped and divided close to the gallbladder. The gallbladder then dissected from its peritoneal attachments by electrocautery. Hemostasis was checked and the gallbladder was removed using the endoscopic retrieval bag through the umbilical port. The gallbladder is passed off table as specimen. The gallbladder fossa was irrigated with saline and hemostasis obtained. There is no evidence of bleeding from the gallbladder fossa or cystic artery leakage of bile from the cystic duct stump. Secondary trochars removed under direct vision. No bleeding was noted the trocar sites. The laparoscope was withdrawn and umbilical trocar removed. The abdomen was allowed to collapse. The fascia of the 12 mm trocar was closed with a [id number] 0 Vicryl suture. The skin was closed with sutures of 4-0 Monocryl and Steri-Strips. The patient was extubated. The patient tolerated procedure well and was taken to the postanesthesia care unit in stable condition. Surgical Findings: See operative report Complications Complications: No
--- NOTE | 2024-10-03 08:47 | DCINST_ITS ---
Discharge Instructions Diet Discharge Diet: Light diet - advance as tolerated Activity Discharge Activity: May Not Drive (while taking narcotic pain medications.) May shower in (days): 1 Lifting Restrictions: no lifting >20 lbs x 2 wks, no strenuous exercise for 4 wks Dressing / Incision Call your doctor if your incision/area has: Continuous Slow Oozing, Sudden Increased Bleeding, Increased Pain/ Swelling, Increased Redness, Foul Smelling Discharge and Swelling at the incision site Call your doctor if you observe: Fever of 101 or Higher Remove Dressing in: 2 days Cleanse incision/area with: Soap & Water Additional Dressing/Incision Instructions:: Steri-Strips will fall off in 7 to 10 days, if they do not fall off okay to remove after 10 days. Follow Up Care Please Follow Up With: Marisa Palm MD When: Call the office for a follow-up appointment 2 weeks; after 5 PM and on the weekends call [phone] with any concerns. Test Results: Test results from this visit will be discussed in further detail at your follow- up appointment, if applicable. Discharge Plan Admission Attending Provider: Marisa Palm Primary Care Provider: Rolando Ceballos Instructions Print Language: Serbian Discharge Orders/Prescriptions Prescriptions: New hydrocodone-acetaminophen 5-325 mg tablet 1 tab PO Q6H PRN (Reason: pain) 3 Days Qty: 10 0RF Continued VSL#3 112.5 billion cell capsule 1 cap PO DAILY Qty: 30 2RF omeprazole 40 mg capsule,delayed release(DR/EC) 40 mg PO QDAY Qty: 30 6RF Rx Instructions: swallow whole; do not crush, chew, dissolve, cut, break cholecalciferol (vitamin D3) 125 mcg (5,000 unit) capsule 125 mcg PO QDAY multivitamin with folic acid 1 TABLET tablet 1 tab PO DAILY potassium 99 MG tablet 99 mg PO DAILY calcium carbonate 500 MG tablet 500 mg PO DAILY folic acid 1 mg tablet 1 mg PO DAILY triamcinolone acetonide 0.5 % cream 1 applic TOPICAL PRN PRN (Reason: EXCEMA) Patient Comments: APPLY TO AFFECTED AREA OFYHANDS 2 TIMES A DAY glimepiride 1 mg tablet 1 mg PO DAILY trazodone 50 mg tablet 50 mg PO QHS allopurinol 100 mg tablet 100 mg PO DAILY Other Ambulatory Orders: 12 Lead EKG (Routine) Timeframe: 20240930 Location: None Selected Ordered By: Dr. Juan Polk Referrals / Follow Up: Rolando Ceballos DO [Primary Care Provider] - Disposition Disposition (needs filled in before D/C Order can be placed): Home, Self Care
--- NOTE | 2024-10-03 09:09 | PCM.POST.ANE ---
Anesthesia: Postop Eval I Current Vital Signs Temperature: 97.7 F Pulse Rate: 90 Blood Pressure: 141/92 Respiratory Rate: 16 Pulse Ox: 95 Oxygen Delivery Method: Nasal Cannula Oxygen Flow Rate (L/min): 4 Assessment Airway patent: Yes Spontaneous unlabored respirations: Yes Mental status: Awake and Calm nausea: No Vomiting: No Anesthesia Complication: No Fluid Hydration Crystalloid volume administer (ml): 1,100 Total IV fluid infused: 1,100 Progress Note Anesthesia document: Postop Eval 1 completed: Yes
[2024-10-03] MEDS: HYDROcodone Bitartrate/Apap 5/325 Tablet PO (10:02)
--- NOTE | 2024-10-03 10:32 | POSTOPAN2_ITS ---
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.JDEF Spontaneous unlabored Yes 10/03/24 09:10 GREENSTONE POLISHER OPERATOR.JDEF respirations Mental status Awake,Calm 10/03/24 09:10 GREENSTONE POLISHER OPERATOR.JDEF nausea No 10/03/24 09:10 GREENSTONE POLISHER OPERATOR.JDEF Vomiting No 10/03/24 09:10 GREENSTONE POLISHER OPERATOR.JDEF Anesthesia Postop Eval I: Fluid Summary Crystalloid volume administer 1,100 10/03/24 09:10 GREENSTONE POLISHER OPERATOR.JDEF (ml) Colloids volume administered ( ml) Blood Product volume administered (ml) Total IV fluid infused 1,100 10/03/24 09:10 GREENSTONE POLISHER OPERATOR.JDEF Anesthesia Postop Eval I: Summary Notes Anesthesia Complication No 10/03/24 09:10 GREENSTONE POLISHER OPERATOR.JDEF Anesthesia Complication Comment: Post-operative progress note Anesthesia: Postop Eval II Evaluation Mental status: Awake and Calm Pain Level: 2 nausea: No Vomiting: No Complications Anesthesia Complication: No
--- NOTE | 2024-10-03 10:32 | PCM.POSTANE2 ---
Anesthesia Postop Eval I Sum Postop Eval Completion status Anesthesia document: Postop Eval 1 completed: Yes Anesthesia Postop Eval I Summary Anesthesia Postop Eval I Summary: Anesthesia Postop Eval I: Assessment Summary Airway patent Yes 10/03/24 09:10 [employer] SCI[employer] DEAN.JDEF Spontaneous unlabored Yes 10/03/24 09:10 [employer] DEAN.JDEF respirations Mental status Awake,Calm 10/03/24 09:10 [employer] SCI[employer] DEAN.JDEF nausea No 10/03/24 09:10 [employer] DEAN.JDEF Vomiting No 10/03/24 09:10 [employer] SCI[employer] DEAN.JDEF Anesthesia Postop Eval I: Fluid Summary Crystalloid volume administer 1,100 10/03/24 09:10 [employer] DEAN.JDEF (ml) Colloids volume administered ( ml) Blood Product volume administered (ml) Total IV fluid infused 1,100 10/03/24 09:10 [employer] DEAN.JDEF Anesthesia Postop Eval I: Summary Notes Anesthesia Complication No 10/03/24 09:10 [employer] DEAN.JDEF Anesthesia Complication Comment: Post-operative progress note Anesthesia: Postop Eval II Evaluation Mental status: Awake and Calm Pain Level: 2 nausea: No Vomiting: No Complications Anesthesia Complication: No
== END 2024-10-03 10:51 | disposition home or self-care (01) ==
LOC: SDC 05:48 → AC 05:48
PROVIDERS: Anesthesiology; PCP Family Medicine; Referring Provider Surgery; Visit Provider Surgery
PROC: 0FT44ZZ Resection of Gallbladder, Percutaneous Endoscopic Approach (ICD-10-PCS; CPT 47562; principal; 2024-10-03 07:10)
DX: K80.10 Calculus of gallbladder with chronic cholecystitis without obstruction (principal); E11.9 Type 2 diabetes mellitus without complications; K82.8 Other specified diseases of gallbladder; K21.9 Gastro-esophageal reflux disease without esophagitis; Z79.84 Long term (current) use of oral hypoglycemic drugs; Z79.899 Other long term (current) drug therapy; Z87.891 Personal history of nicotine dependence
CPT/HCPCS: 47562; S2900; 00790; 36415; 80048; 80076; 82962; 83036; 85025; 88304; 93005; J2405

== ENCOUNTER 2024-10-12 08:01 | Outpatient (RCR) | payer OTHER, SELFPAY | END 2024-10-20 23:59 | LOC: NS 08:01 | PROVIDERS: PCP Family Medicine; Referring Provider Family Medicine; Visit Provider Family Medicine | DX: Z71.3 Dietary counseling and surveillance (principal); E11.9 Type 2 diabetes mellitus without complications | CPT/HCPCS: 97802 ==

== ENCOUNTER → 2024-12-27 | Outpatient (CLI) | payer OTHER, SELFPAY ==
[2024-12-27 11:15] LABS: Hematocrit 41.9 % (37-47); Hemoglobin 13.7 g/dL (12.0-15.0); Immature Granulocytes Count 0.070 X10^3/uL (0.0-0.0); Mean Corp Hgb Conc 32.7 g/dL (32-36); Mean Corpuscular Volume 91.1 fL (81-99); Mean Platelet Vol. 11.9 fl (6.2-12.0); NRBC Flagged by Analyzer 0 % (0-5); Platelet Count 373 K/mm3 (150-450); RBC Distribution Width CV 13.6 % (11.6-14.6); RBC Distribution Width SD 45.3 fl (35.1-43.9); Red Blood Count 4.60 M/mm3 (4.2-5.4); White Blood Count 12.4 K/mm3 (4.4-11.0)
[2024-12-29 22:07] LABS: H. PYLORI STOOL AG Negative (Negative)
== END | disposition home or self-care (01) ==
PROVIDERS: PCP Nurse Practitioner; Referring Provider Nurse Practitioner; Visit Provider Nurse Practitioner
DX: K58.0 Irritable bowel syndrome with diarrhea (principal)
CPT/HCPCS: 36415; 85025; 87338; 87493; 87506